=== PATIENT | male | born 1970 | race African-American/Black ===

== ENCOUNTER 2017-05-25 17:27 | Observation (INO) | payer BC, SELFPAY ==
[2017-05-25] VITALS (9 sets, daily range): BP systolic 140–208; BP diastolic 98–143; PULSE 91–131; RESP 16–25; TEMP 35.9–36.8; O2SAT 94–99; BMI 46.5; BMI 46.7; BMI 46.8
--- NOTE | 2017-05-25 18:35 | NURSING ---
MEDIC CALLED FOR EKG, PULLED OLD EKG'S FOR
--- NOTE | 2017-05-25 18:55 | EKG12_ITS ---
Test Reason : SOB Blood Pressure : / mmHG Vent. Rate : 118 BPM Atrial Rate : 118 BPM P-R Int : 130 ms QRS Dur : 090 ms QT Int : 352 ms P-R-T Axes : 043 -17 101 degrees QTc Int : 493 ms Sinus tachycardia Biatrial enlargement Left ventricular hypertrophy Nonspecific ST and T wave abnormality Abnormal ECG Confirmed by CODIE WILLETT, ADALBERTO ([id number]), field map editor RAND WHITTAKER ([id number]) on 06/06/2017 2:34:38 PM Referred By: Confirmed By:ADALBERTO MACKAY MD
[2017-05-25 19:15] LABS: Absolute Lymphocyte Count 1.63 X10^3/ul (0.83-4.51); Absolute Neutrophil Count 6.4 X10^3/uL (2.0-7.7); Basophil# 0.02 X10^3/uL; Basophil% 0.2 % (0-1); Eosinophils% 1.2 % (0-5); Hematocrit 42.8 % (40-54); Hemoglobin 13.8 g/dl (13.0-16.5); Lymphocyte # 1.63 X10^3/ul (4.0); Lymphocyte % 19.2 % (19-41); Mean Corp Hgb Conc 32.2 g/gl (32-36); Mean Corpuscular Hgb 26.5 pg (27.0-32.0); Mean Corpuscular Volume 82.1 fL (80-94); Mean Platelet Vol. 10.1 fl (6.2-12.0); Monocyte# 0.37 X10^3/uL; Monocyte% 4.4 % (0-10); Neutrophil # 6.35 X10^3/uL (2.7-7.7); Neutrophil % 74.8 % (47-70); POSITIVE COUNT NO; POSITIVE DIFFERENTIAL NO; POSITIVE MORPHOLOGY NO; Platelet Count 280 K/mm3 (150-450); RBC Distribution Width CV 15.4 % (11.6-14.6); RBC Distribution Width SD 46.2 fl (35.1-43.9); Red Blood Count 5.21 M/mm3 (4.6-6.2); White Blood Count 8.5 K/mm3 (4.4-11.0)
--- NOTE | 2017-05-25 19:25 | RAD_ITS ---
STUDY: X-RAY CHEST REASON FOR EXAM: Male, 46 years old. Shortness of breath dyspnea TECHNIQUE: PA and lateral views of the chest. COMPARISON: December 2014 chest x-ray FINDINGS: There is slightly greater focal band of interstitial thickening in the right lateral lobe. There is bandlike density in the left lingula. There is no demonstrated pleural abnormality. There is borderline cardiomegaly. Normal mediastinum and erick. Normal visualized pulmonary arteries. Normal visualized aortic arch and descending thoracic aorta. There are diffuse degenerative changes of the visualized thoracic spine. Normal visualized ribs, clavicles, and shoulders. There is no demonstrated abnormality of the visualized soft tissue structures of the upper abdomen. RAD/Chest PA and Lateral IMPRESSION: Right middle lobe left lingular atelectasis and/or developing infiltrates. Electronically Signed: Olivia Kaur MD at 19:57 EST Tel , Service support ,
[2017-05-25 19:27] LABS: ALB/GLOB Ratio 0.8 RATIO (0.9-2.4); AST(SGOT) 9 U/L (15-37); Alanine Aminotransfer ALT/SGPT 17 U/L (12-78); Albumin, Serum 3.3 g/dL (3.4-5.0); Alkaline Phosphatase 84 U/L (45-117); Anion Gap 9 (5-15); BUN 42 mg/dL (7-18); BUN/Creat Ratio 11.1 RATIO (10-20); Calcium,Total 8.9 mg/dL (8.5-10.1); Chloride 105 mmol/L (98-107); Creatinine, Serum 3.79 mg/dL (0.70-1.30); EST Glomerular Filtration Rate 18 mL/min (>60); Est Glom Filt Rate - Afr Amer 22 mL/min (>60); Estimated Creatinine Clearance 24.35 ml/min; Globulin 4.3 g/dL (2.2-4.2); Glucose 211 mg/dL (70-110); Lipase 77 U/L (73-393); Potassium 4.4 mmol/L (3.5-5.1); Protein, Total 7.6 g/dL (6.4-8.2); Sodium Level 139 mmol/L (136-145)
[2017-05-25] MEDS: Ondansetron 4 MG/2 ML Vial IV (19:36)
[2017-05-25] MEDS: 0.9% Normal Saline 1,000 ML 1000 ML IV (19:36)
[2017-05-25] MEDS: Labetalol 100 MG/20 ML Vial 10 MG IV (19:58)
[2017-05-25] MEDS: Aspirin 325 MG Tablet PO (20:46)
[2017-05-25] MEDS: Labetalol 20 MG/4 ML Vial IV (20:47)
--- NOTE | 2017-05-25 23:02 | PCM.HP.STD ---
Problem List (1) Hypertensive urgency Status: Acute (2) Elevated troponin Status: Acute (3) Chronic kidney disease stage III Status: Chronic (4) Diabetes type II Status: Chronic (5) Hypertension Status: Chronic History of Present Illness Date of Admission: 05/25/17 Chief Complaint: HTN urgency The patient is a 46 year old male w/ h/o HTN, CKD III, and DMII admitted for HTN urgency. 1) HTN urgency: SBP 200s. Baseline SBP 140s. Will resume home SBP meds. Will also add PRN labetalol. Will bring down SBP slowly. 2) Elevated trops: Will get serial trops. Currently asymptomatic. Pt has CKD III/ baseline. Likely type II. 3) CKD III/IV: Cr at baseline. Hydration. Routine CKD care. Past Medical History Past Medical History (Chronic Problems): Chronic Problems Chronic kidney disease stage III (Chronic) Diabetes type II (Chronic) Hypertension (Chronic) Allergies ibuprofen Adverse Reaction (Verified 05/25/17 17:31) Other Home Medications: Ambulatory Orders Medication Instructions Recorded Amlodipine [Norvasc] 10 mg PO DAILY 02/12/13 Omeprazole [Prilosec] 20 mg PO DAILY 02/12/13 Aspirin [Aspirin, Baby] 81 mg PO DAILY@0800 #30 tab.chew 01/10/15 HydrALAZINE [Apresoline] 75 mg PO TID #90 tablet 01/10/15 Chlorthalidone [Hygroton] 50 mg PO DAILY 01/20/16 Cholecalciferol (Vitamin D3) 50,000 unit PO QWEEK 01/20/16 [Vitamin D] Carvedilol [Coreg (Beta Florin)] 50 mg PO BID 05/25/17 Insulin Degludec [Tresiba 30 units SC DAILY 05/25/17 Flextouch U-200] Liraglutide [Victoza] 1.8 mg SQ QHS 05/25/17 Lisinopril [Zestril] 5 mg PO DAILY 05/25/17 Surgical History: no surgical history Smoking Status: Never smoker - *Family History Maternal History Items: No pertinent history VTE Information - Inpt Only VTE Present on Admission: No VTE Mechan Device Prophylaxis: SCD's VTE Pharm Prophylaxis ordered?: Yes Patient Problems: Active and Suspected Problems Hypertensive urgency (Acute) Elevated troponin (Acute) - Physical Exam Vital Signs Temp Pulse Resp BP Pulse Ox 98.2 F 91 19 H 140/98 H 99 05/25/17 21:27 05/25/17 21:27 05/25/17 21:27 05/25/17 21:27 05/25/17 21:27 Oxygen Flow Rate 2 Oxygen Delivery Method Nasal Cannula Weight: 142.882 kg Body Mass Index (BMI) 46.5 Finger Stick Blood Glucose 289 Laboratory Tests Past 24 Hrs 05/25/17 05/25/17 18:45 18:45 WBC 8.5 RBC 5.21 Hgb 13.8 Hct 42.8 MCV 82.1 MCH 26.5 L MCHC 32.2 RDW 15.4 H RDW Differential 46.2 H Plt Count 280 MPV 10.1 Immature Gran % (Auto) 0.200 Neut % (Auto) 74.8 H Lymph % (Auto) 19.2 [place] % (Auto) 4.4 Eos % (Auto) 1.2 Baso % (Auto) 0.2 Absolute Neuts (auto) 6.4 Absolute Lymphs (auto) 1.63 Total Counted Not Reportable Sodium 139 Potassium 4.4 Chloride 105 Carbon Dioxide 25.0 Anion Gap 9 BUN 42 H Creatinine 3.79 H Estim Creat Clear Calc 24.35 Est GFR (MDRD) Af Amer 22 L Est GFR (MDRD) Non-Af 18 L BUN/Creatinine Ratio 11.1 Glucose 211 H Calcium 8.9 Total Bilirubin 0.40 AST 9 L ALT 17 Alkaline Phosphatase 84 Troponin I 0.12 H Total Protein 7.6 Albumin 3.3 L Globulin 4.3 H Albumin/Globulin Ratio 0.8 L Lipase 77 Assessment/Plan Active and Suspected Problems Hypertensive urgency (Acute) Elevated troponin (Acute)
[2017-05-26] VITALS (8 sets, daily range): BP systolic 112–148; BP diastolic 84–101; PULSE 85–101; RESP 18; TEMP 36.3–36.5; O2SAT 94–98
[2017-05-26] MEDS: Carvedilol 25 MG Tablet 50 MG PO ×2 (00:23→08:02)
--- NOTE | 2017-05-26 00:34 | ED.VISSUMM ---
- ER Visit Summary Date of Service: 05/26/17 Chief Complaint: Shortness of breath History of Present Illness: The patient is a 46 M who has a history of chronic kidney disease, diabetes, and hypertension. He sees Dr. Mcqueen. Patient states that yesterday he began to feel shortness of breath. He noted a headache nausea is tonight at work developed sweating. [place] like he was going to pass out went to his boss and told he could not take this anymore. States he had a bit of a cough with some phlegm production but he states that is pretty normal for him. He reports a normal blood pressure for him is 168/104. He denies chest pain. Physical Examination: Blood pressure 205/131 heart rate of 117 respirations 16 pulse ox 97% on room air Gen: Well-nourished well-developed Geoff obese Head: Normocephalic atraumatic Eyes: Perrl EOMI ENT: TMs clear no rhinorrhea moist mucous membranes Neck: Supple no lymphadenopathy no JVD nontender CVS: Regular rate rhythm no murmurs normal S1-S2 Respiratory: No distress clear to auscultation bilaterally chest nontender Abdomen: Soft nontender nondistended normal bowel sounds no masses Back: Nontender Extremity: Nontender no edema Skin: Normal color no rash Neuro: alert orientated ?3 CN II-XII intact normal strength sensation reflexes gait cerebellar Psych: Normal affect normal mood Test Results: White count normal. Creatinine 3.79 which is his baseline. Glucose 211. Troponin 0 0.12. EKG sinus with a rate of 118. Chest x-ray showed no acute findings. Emergency Department Course and Treatment: Patient received labetalol with improvement of his pressures. Manual blood pressure at time of admission 142/98 he is no longer short of breath. Reviewing his records showed him to have normal troponins the end of last year despite his chronic kidney disease. I do suspect this patient probably had a hypertensive urgency based on his symptoms and laboratory findings plan is admission. Impression: 1. Hypertensive urgency 2. Indeterminate troponin This note was generated with [employer] dictation software. It may contain incorrect words, spelling, and punctuation that were not noted in review of the chart prior to signing ED Disposition - Plan for ED Patient: Disposition: Acute Care Hospital [facility] Chief Complaint: Shortness of Breath
--- NOTE | 2017-05-26 00:37 | ED.DCSUM_ITS ---
- ER Visit Summary Date of Service: 05/26/17 Chief Complaint: Shortness of breath History of Present Illness: The patient is a 46 M who has a history of chronic kidney disease, diabetes, and hypertension. He sees Dr. Mcqueen. Patient states that yesterday he began to feel shortness of breath. He noted a headache nausea is tonight at work developed sweating. [place] like he was going to pass out went to his boss and told he could not take this anymore. States he had a bit of a cough with some phlegm production but he states that is pretty normal for him. He reports a normal blood pressure for him is 168/104. He denies chest pain. Physical Examination: Blood pressure 205/131 heart rate of 117 respirations 16 pulse ox 97% on room air Gen: Well-nourished well-developed Geoff obese Head: Normocephalic atraumatic Eyes: Perrl EOMI ENT: TMs clear no rhinorrhea moist mucous membranes Neck: Supple no lymphadenopathy no JVD nontender CVS: Regular rate rhythm no murmurs normal S1-S2 Respiratory: No distress clear to auscultation bilaterally chest nontender Abdomen: Soft nontender nondistended normal bowel sounds no masses Back: Nontender Extremity: Nontender no edema Skin: Normal color no rash Neuro: alert orientated ?3 CN II-XII intact normal strength sensation reflexes gait cerebellar Psych: Normal affect normal mood Test Results: White count normal. Creatinine 3.79 which is his baseline. Glucose 211. Troponin 0 0.12. EKG sinus with a rate of 118. Chest x-ray showed no acute findings. Emergency Department Course and Treatment: Patient received labetalol with improvement of his pressures. Manual blood pressure at time of admission 142/ 98 he is no longer short of breath. Reviewing his records showed him to have normal troponins the end of last year despite his chronic kidney disease. I do suspect this patient probably had a hypertensive urgency based on his symptoms and laboratory findings plan is admission. Impression: 1. Hypertensive urgency 2. Indeterminate troponin This note was generated with [employer] dictation software. It may contain incorrect words, spelling, and punctuation that were not noted in review of the chart prior to signing ED Disposition - Plan for ED Patient: Disposition: Acute Care Hospital [facility] Chief Complaint: Shortness of Breath
[2017-05-26 06:41] LABS: Bedside Glucose 235 mg/dL (70-110)
[2017-05-26 07:06] LABS: Absolute Lymphocyte Count 1.69 X10^3/ul (0.83-4.51); Absolute Neutrophil Count 4.1 X10^3/uL (2.0-7.7); Basophil# 0.02 X10^3/uL; Basophil% 0.3 % (0-1); Eosinophil# 0.15 X10^3/uL; Eosinophils% 2.4 % (0-5); Hematocrit 39.7 % (40-54); Hemoglobin 12.4 g/dl (13.0-16.5); Lymphocyte # 1.69 X10^3/ul (4.0); Lymphocyte % 26.7 % (19-41); Mean Corp Hgb Conc 31.2 g/gl (32-36); Mean Corpuscular Hgb 25.9 pg (27.0-32.0); Mean Corpuscular Volume 83.1 fL (80-94); Mean Platelet Vol. 9.9 fl (6.2-12.0); Monocyte# 0.37 X10^3/uL; Monocyte% 5.8 % (0-10); Neutrophil # 4.11 X10^3/uL (2.7-7.7); Neutrophil % 64.8 % (47-70); Platelet Count 241 K/mm3 (150-450); RBC Distribution Width CV 15.7 % (11.6-14.6); RBC Distribution Width SD 47.4 fl (35.1-43.9); Red Blood Count 4.78 M/mm3 (4.6-6.2); White Blood Count 6.3 K/mm3 (4.4-11.0)
[2017-05-26 07:14] LABS: POSITIVE COUNT NO; POSITIVE DIFFERENTIAL NO; POSITIVE MORPHOLOGY NO
--- NOTE | 2017-05-26 07:33 | PCM.PROGNOTE ---
Patient Problems: Active and Suspected Problems Hypertensive urgency (Acute) Elevated troponin (Acute) Subjective: 46-year-old male with a past medical history of hypertension, diabetes mellitus type 2, chronic renal failure stage IV, HLD, VERÓNICA on CPAP and morbid obesity who presented to the emergency department at [facility] on 05/25/2017 complaining of shortness of breath, cephalgia and nausea. He felt as though he was going to faint. BP in the ER was 205/131 and he stated his normal BP was 168/104. Troponin was elevated at 0.12 and the creat was 3.79. Outpatient antihypertensives include amlodipine 10 mg daily, chlorthalidone 50 mg daily, hydralazine 75 mg 3 times daily, carvedilol 50 mg twice daily and lisinopril 5 mg daily. He was treated in the ER with Labetalol and it was effective in bringing down the BP. An echocardiogram done in December 2014 showed a moderately dilated left ventricle with an estimated ejection fraction of 40%. It was global left ventricular dysfunction. The left atrium was moderately enlarged and the right atrium was mildly enlarged. There was moderate TR and mild MR. Right ventricular systolic pressure was estimated at 54. Current vital signs are temperature 97.7, blood pressure 112/84, pulse rate 85, respiratory rate 18 and he is 98% saturated on a 2 L nasal cannula. He has received a total of 30 mg of labetalol intravenously, Coreg 50 mg and hydralazine 75 mg approximately 1 hour ago. The second troponin was elevated at 0.15. Admits to having orthopnea at home for the past 2 days. Has been sleeping in a chair. He admits to exertional dyspnea and wheezing for the past 48 hours. He denies missing any of his medications. He denies chest pain, chest tightness, squeezing or pain in his neck, jaw, arms or back. He tells me his breathing is very good today and he slept well. He is requesting to be discharged. - Physical Exam General: Alert, Oriented x3, Cooperative, No apparent distress Oral: Moist Mucosa Neck: Trachea Midline Lungs: Clear to auscultation, Diminished - Likely secondary to body habitus Cardiovascular: Regular rate, Regular Rhythm, Normal S1, Normal S2, No murmurs, No rub noted, No Gallop, - - Heart sounds are distant secondary to body habitus. Telemetry shows normal sinus rhythm with no ectopy. Abdomen: Soft, Non Tender, Non-Distended, Obese Extremities: No edema Vital Signs Temp Pulse Resp BP Pulse Ox 97.7 F L 85 18 112/84 H 98 05/26/17 06:23 05/26/17 06:33 05/26/17 06:23 05/26/17 06:23 05/26/17 06:23 Oxygen Flow Rate 2 Oxygen Delivery Method Nasal Cannula Weight: 316 lb 12.868 oz Body Mass Index (BMI) 46.7 Intake and Output for Last 24 Hours 05/24/17 05/25/17 05/26/17 23:59 23:59 23:59 Intake Total 720 / 720 Balance 720 / 720 Laboratory Tests Past 24 Hrs 05/26/17 05/26/17 05/26/17 00:15 06:17 06:17 WBC 6.3 RBC 4.78 Hgb 12.4 L Hct 39.7 L MCV 83.1 MCH 25.9 L MCHC 31.2 L RDW 15.7 H RDW Differential 47.4 H Plt Count 241 MPV 9.9 Immature Gran % (Auto) 0.000 Neut % (Auto) 64.8 Lymph % (Auto) 26.7 [place] % (Auto) 5.8 Eos % (Auto) 2.4 Baso % (Auto) 0.3 Absolute Neuts (auto) 4.1 Absolute Lymphs (auto) 1.69 Total Counted Not Reportable Sodium Pending Potassium Pending Chloride Pending Carbon Dioxide Pending Anion Gap Pending BUN Pending Creatinine Pending Est GFR (MDRD) Af Amer Pending Est GFR (MDRD) Non-Af Pending BUN/Creatinine Ratio Pending Glucose Pending Calcium Pending Troponin I 0.15 H POC Glucose 05/26/17 06:30 POC Glucose 235 H Assessment/Plan Active and Suspected Problems Hypertensive urgency (Acute) Elevated troponin (Acute) Impressions 1. acute combined systolic and diastolic CHF 2. Hypertensive Urgency 3. CRF stage 4 4. DM II 5. indeterminate troponin likely due to demand ischemia from hypertensive urgency with acute combined CHF 6. morbid obesity 7. anemia of CRF suspected 8. VERÓNICA 9. HLD 10. CM with a 40% EF in Dec 2014 Multiple RF's for CAD including HTN, DM II, HLD, age >45. No stress for many years. Needs to have an ECHO since ECHO a little over 2 years ago had 40% EF. Also needs a stress test. He wants to be discharged and the BP today is WNL and he is asymptomatic so I will DC. Needs to follow up with a PCP this week to arrange an OP ECHO and stress. He is likely not compliant with TID dosing of the Hydralazine. Will add Clonidine TTS 1 patch. HR ranges from 85-131. No bradycardia on the Telemetry. If the BP is controlled in the office this week would get the stress HAYLEE due to the indeterminate troponin. He will continue CPAP and has had a sleep study in the past year with no significant weight gain.
[2017-05-26 07:44] LABS: Anion Gap 9 (5-15); BUN 50 mg/dL (7-18); BUN/Creat Ratio 13.6 RATIO (10-20); Calcium,Total 8.3 mg/dL (8.5-10.1); Chloride 106 mmol/L (98-107); Creatinine, Serum 3.69 mg/dL (0.70-1.30); EST Glomerular Filtration Rate 19 mL/min (>60); Est Glom Filt Rate - Afr Amer 23 mL/min (>60); Estimated Creatinine Clearance 25.01 ml/min; Glucose 223 mg/dL (70-110); Potassium 4.6 mmol/L (3.5-5.1); Sodium Level 138 mmol/L (136-145)
[2017-05-26] MEDS: Aspirin 81 MG TAB.CHEW PO (08:01)
[2017-05-26] MEDS: Lisinopril 5 MG Tablet PO (08:01)
[2017-05-26] MEDS: Pantoprazole Sodium 20 MG Tablet PO (08:01)
[2017-05-26] MEDS: Chlorthalidone 50 MG Tablet PO (08:01)
[2017-05-26] MEDS: amLODIPine 10 MG Tablet PO (08:02)
--- NOTE | 2017-05-26 09:44 | DCINST_ITS ---
- Discharge Diagnoses Current Active Problems: Current Active and Chronic Problems Hypertensive urgency (Acute) Elevated troponin (Acute) You will use the following diet at home:: Calorie/Carbohydrate Controlled ( specify 1200, 1400, etc), Other - 2200, low fat and low salt Your food should be the consistency of: Regular Your liquids should be the consistency of: Regular/Thin Discharge Activity: Return to Normal Activity Return to work on:: 05/28/17 Call your doctor if you observe: Fever of 101 or Higher, Inability to urinate, Shortness of breath, Dizziness, Fainting spells, Swelling in the ankles, Chest pain, Increased palpitations (irregular heartbeat) Instructions: MyPlate Worksheet: 2,200 Calories, Discharge Instructions for Heart Failure Additional Instructions: When your BP got really really high the heart muscle could not squeeze hard enough to get the blood out of the heart and delivered to the rest of the body.....so the blood backed up and caused fluid in the lungs. This fluid is what mades it hard for you to lie down flat and sleep and also caused the shortness of breath and wheezing when you were walking. YOU MUST KEEP YOUR bp CONTROLLED. The hardest medications to be compliant with are meds that you are to take 3 times a day. Take your BP medication before you go to work, with you lunch break at work and soon after you return home from work. Put the hydralazine in a small container or a sandwich bag and include it with your lunch....so you do not forget to take it. You can also set the alarm on your phone or on your watch to remind you to take the medication when the alarm goes off. You need to have a stress test and a repeat ultrasound of the heart, called an ECHO or echocardiogram......your last ECHO was in Dec and the heart was not working as well as it should. Normally when the heart squeezes it should squeeze 55-65% of the blood out. Your heart does 40%.......since your BP is not controlled this may have gotten worse......you are a young man with children/family. If you do not start taking better care of yourself you may not be around to watch your children graduate form school, get , have children. Please take your medications and follow up with Dr. Lamar and your PCP regularly. I have started you on a new BP medication that comes in a patch that you only need to change once a week and it releases medication continuously. Pending Tests on Discharge: blood culture Allergies/Adverse Reactions: Allergies ibuprofen Adverse Reaction (Verified 05/25/17 17:31) Other Medications to take at Discharge Amlodipine [Norvasc] 10 mg PO DAILY 02/12/13 Omeprazole [Prilosec] 20 mg PO DAILY 02/12/13 Aspirin [Aspirin, Baby] 81 mg PO DAILY@0800 #30 tab.chew 01/10/15 HydrALAZINE [Apresoline] 75 mg PO TID #90 tablet 01/10/15 Chlorthalidone [Hygroton] 50 mg PO DAILY 01/20/16 Cholecalciferol (Vitamin D3) [Vitamin D3] 50,000 unit PO QWEEK 01/20/16 Carvedilol [Coreg (Beta Florin)] 50 mg PO BID 05/25/17 Insulin Degludec [Tresiba Flextouch U-200] 30 units SC DAILY 05/25/17 Liraglutide [Victoza] 1.8 mg SQ QHS 05/25/17 Lisinopril [Zestril] 5 mg PO DAILY 05/25/17 Clonidine [Catapres-Tts 1] 1 ea TD Q7D #5 patch.tdwk 05/26/17 The following prescriptions were given: Clonidine [Catapres-Tts 1] 1 ea TD Q7D #5 patch.tdwk Primary Care Physician: Norris Mcqueen MD [Primary Care Provider] - Please follow up with your Primary Care Physician in: within 1 week Please Follow Up With: Jade Lamar MD When: within 4 weeks Please Follow Up With: Marylou Vidales MD - if you are interested in changing physicians When: within 1 week Proposed Discharge Date: 05/26/17
--- NOTE | 2017-05-26 09:50 | DS.PCM_ITS ---
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 Electronically Signed: Olivia Kaur MD at 19:57 EST Tel , Service support , Laboratory Tests 05/25/17 05/25/17 05/26/17 18:45 18:45 00:15 WBC 8.5 RBC 5.21 Hgb 13.8 Hct 42.8 MCV 82.1 MCH 26.5 L MCHC 32.2 RDW 15.4 H RDW Differential 46.2 H Plt Count 280 MPV 10.1 Immature Gran % (Auto) 0.200 Neut % (Auto) 74.8 H Lymph % (Auto) 19.2 Caswell % (Auto) 4.4 Eos % (Auto) 1.2 Baso % (Auto) 0.2 Absolute Neuts (auto) 6.4 Absolute Lymphs (auto) 1.63 Total Counted Not Reportable Sodium 139 Potassium 4.4 Chloride 105 Carbon Dioxide 25.0 Anion Gap 9 BUN 42 H Creatinine 3.79 H Estim Creat Clear Calc 24.35 Est GFR (MDRD) Af Amer 22 L Est GFR (MDRD) Non-Af 18 L BUN/Creatinine Ratio 11.1 Glucose 211 H Calcium 8.9 Total Bilirubin 0.40 AST 9 L ALT 17 Alkaline Phosphatase 84 Troponin I 0.12 H 0.15 H Total Protein 7.6 Albumin 3.3 L Globulin 4.3 H Albumin/Globulin Ratio 0.8 L Lipase 77 POC Glucose 01/05/26/17 05/26/17 06:17 06:17 06:30 WBC 6.3 RBC 4.78 Hgb 12.4 L Hct 39.7 L MCV 83.1 MCH 25.9 L MCHC 31.2 L RDW 15.7 H RDW Differential 47.4 H Plt Count 241 MPV 9.9 Immature Gran % (Auto) 0.000 Neut % (Auto) 64.8 Lymph % (Auto) 26.7 Caswell % (Auto) 5.8 Eos % (Auto) 2.4 Baso % (Auto) 0.3 Absolute Neuts (auto) 4.1 Absolute Lymphs (auto) 1.69 Total Counted Not Reportable Sodium 138 Potassium 4.6 Chloride 106 Carbon Dioxide 23.0 Anion Gap 9 BUN 50 H Creatinine 3.69 H Estim Creat Clear Calc 25.01 Est GFR (MDRD) Af Amer 23 L Est GFR (MDRD) Non-Af 19 L BUN/Creatinine Ratio 13.6 Glucose 223 H Calcium 8.3 L Total Bilirubin AST ALT Alkaline Phosphatase Troponin I Total Protein Albumin Globulin Albumin/Globulin Ratio Lipase POC Glucose 235 H none Operations: None Procedures: None Summary of Care Provided: 46-year-old male with a past medical history of hypertension, diabetes mellitus type 2, chronic renal failure stage IV, HLD, VERÓNICA on CPAP and morbid obesity who presented to the emergency department at [facility] on 05/25/2017 complaining of shortness of breath, cephalgia and nausea. He felt as though he was going to faint. BP in the ER was 205/131 and he stated his normal BP was 168/104. Troponin was elevated at 0.12 and the creat was 3.79. Outpatient antihypertensives include amlodipine 10 mg daily, chlorthalidone 50 mg daily, hydralazine 75 mg 3 times daily, carvedilol 50 mg twice daily and lisinopril 5 mg daily. He was treated in the ER with Labetalol and it was effective in bringing down the BP. Chest x-ray in the emergency room revealed no pulmonary vascular congestion or pleural effusions. He does have cardiomegaly. He was admitted to a monitored bed with a diagnosis of HTN urgency and elevated troponin. The second troponin was 0.15. Blood pressure on 05/26/2017 ranged from 112/ 84-130 3/91. He denied shortness of breath and also denied any chest pain. He stated he felt much better and had no cephalgia and no nausea. An echocardiogram done in December 2014 showed a moderately dilated left ventricle with an estimated ejection fraction of 40%. It was global left ventricular dysfunction. The left atrium was moderately enlarged and the right atrium was mildly enlarged. There was moderate TR and mild MR. Right ventricular systolic pressure was estimated at 54. He requested to be discharged. I recommended he stay and allow us to finish the serial CE's and get an ECHO and stress test but, he stated he had to get home to his family. He did tell me that he would follow up as an OP with his PCP to arrange a ECHO and stress. I suspect he is not compliant with TID dosing of Hydralazine and and he was told to put the second dose with his lunch and take it on his lunch break at work. He was also instructed to consider getting a watch with an alarm he can set for when he is supposed to take his medication. He was started on a Catapres patch, TTS 1. The HR ranged from 83-131 and I doubt he will have any significant bradycardia with the Catapres. There was no bradycardia on telemetry. He was discharged home with a prescription for a TTS 1 patch. He will follow up with PCP in 1 week and if the BP is adequately controlled he should be referred for a Stress test and ECHO. He will follow up with Dr. Lamar in 4 weeks. This note was generated with [employer] dictation software. It may contain incorrect words, spelling, and punctuation that were not noted in checking the note before signing. Discharge Activity: Return to Normal Activity Return to work on:: 05/28/17 Call your doctor if you observe: Fever of 101 or Higher, Inability to urinate, Shortness of breath, Dizziness, Fainting spells, Swelling in the ankles, Chest pain, Increased palpitations (irregular heartbeat) Home Medications: Medications to take at Discharge Amlodipine [Norvasc] 10 mg PO DAILY 02/12/13 Omeprazole [Prilosec] 20 mg PO DAILY 02/12/13 Aspirin [Aspirin, Baby] 81 mg PO DAILY@0800 #30 tab.chew 01/10/15 HydrALAZINE [Apresoline] 75 mg PO TID #90 tablet 01/10/15 Chlorthalidone [Hygroton] 50 mg PO DAILY 01/20/16 Cholecalciferol (Vitamin D3) [Vitamin D3] 50,000 unit PO QWEEK 01/20/16 Carvedilol [Coreg (Beta Florin)] 50 mg PO BID 05/25/17 Insulin Degludec [Tresiba Flextouch U-200] 30 units SC DAILY 05/25/17 Liraglutide [Victoza] 1.8 mg SQ QHS 05/25/17 Lisinopril [Zestril] 5 mg PO DAILY 05/25/17 Clonidine [Catapres-Tts 1] 1 ea TD Q7D #5 patch.tdwk 05/26/17 Following Prescrptions Were Given to Patient: Clonidine [Catapres-Tts 1] 1 ea TD Q7D #5 patch.tdwk Primary Care Physician: Norris Mcqueen MD [Primary Care Provider] - Please follow up with your Primary Care Physician in: within 1 week Please Follow Up With: Jade Lamar MD When: within 4 weeks Please Follow Up With: Marylou Vidales MD - if you are interested in changing physicians When: within 1 week Patient Instructions: Discharge Instructions for Heart Failure, MyPlate Worksheet: 2,200 Calories Disposition: Home Minutes spent on discharge:: 35 Patient Condition:: Stable Meaningful Use Info Meaningful Use Diagnoses (Choose all that apply): None applicable - CHF BLANCA/ARB ordered at discharge?: Yes Documented LVEF (%): 40 - on ECHO Dec 2014 Code Visit Inpatient E&M: 12140 Disch Hosp
[2017-05-26] MEDS: cloNIDine HCl 0.1 MG Patch TRANSDERM. (10:23)
== END 2017-05-26 10:52 | disposition home or self-care (01) ==
LOC: ED 19:12 → MS2 23:31
PROVIDERS: Admitting Provider Internal Medicine; Emergency Provider Emergency Medicine; Family Provider Family Medicine; PCP Family Medicine; Visit Provider Internal Medicine
DX: I16.0 Hypertensive urgency (principal); E11.22 Type 2 diabetes mellitus with diabetic chronic kidney disease; I13.0 Hypertensive heart and chronic kidney disease with heart failure and stage 1 through stage 4 chronic kidney disease, or unspecified chronic kidney disease; N18.4 Chronic kidney disease, stage 4 (severe); I50.43 Acute on chronic combined systolic (congestive) and diastolic (congestive) heart failure; E66.01 Morbid (severe) obesity due to excess calories; Z68.42 Body mass index [BMI] 45.0-49.9, adult; Z71.3 Dietary counseling and surveillance; G47.33 Obstructive sleep apnea (adult) (pediatric); E78.5 Hyperlipidemia, unspecified
CPT/HCPCS: 36415; 71046; 80048; 80053; 82962; 83690; 84484; 85025; 87040; 93005; 96372; 96374; 96375; 96376; 99218; 99285; A4216; G0378; J2405

== ENCOUNTER → 2017-07-31 06:19 | Outpatient (CLI) | payer BC, SELFPAY ==
--- NOTE | 2017-07-31 18:46 | STRESSREP ---
Stress Test Report Pharmacologic myocardial perfusion stress test. 47-year-old man with a history of shortness of breath. Stress protocol: Resting EKG demonstrates normal sinus rhythm with a rate of 87 bpm occasional premature ventricular complexes noted nonspecific ST-T wave changes noted. 0.4 mg of regadenoson was infused per usual protocol followed by rapid intravenous saline flush injection. Continuous EKG monitoring was performed. Patient maintained sinus rhythm throughout the recording. The maximum heart rate attained was 111 bpm which was 64% maximum predicted heart rate the resting blood pressure is 189/118 maximum blood pressure was 214/105 mmHg. Myocardial perfusion protocol. 14.9 mCi of technetium 99m sestamibi was injected. 0.4 mg of regadenoson was infused per usual protocol. At peak infusion 44.8 mCi of technetium 99m sestamibi was injected stress images were obtained stress and rest images were reconstructed and compared in the short axis vertical long and horizontal long axis. Gated images were also obtained. Perfusion SPECT analysis. Review of the images demonstrate a dilated cardiac silhouette size. The septum anterior wall and lateral wall appear to well perfused the inferior wall demonstrates reduction of perfusion on the stress and resting images to a similar extent the above is likely suggestive of extensive GI attenuation artifact or previous inferior infarct. No obvious areas of reversibility are noted to suggest ischemia. Gated SPECT analysis. The gated ejection fraction is noted be 45% with a dilated hypokinetic ventricle. Conclusion: Pharmacologic myocardial perfusion stress test with no obvious ischemia noted. Previous inferior infarct cannot be completely excluded. Dilated cardiomyopathy. Dilated right ventricle is present
== END ==
PROVIDERS: Family Provider Family Medicine; PCP Family Medicine; Visit Provider Family Medicine
DX: R06.02 Shortness of breath (principal)
CPT/HCPCS: A4216; J2785

== ENCOUNTER → 2017-07-31 06:21 | Outpatient (CLI) | payer BC, SELFPAY ==
--- NOTE | 2017-07-31 06:28 | VDUE_ITS ---
Reason For Study: Assess for possible dialysis access placement - CKD Right Arm Left Arm Right Cephalic Vein at the wrist Left Cephalic Vein at the wrist measures .29 measures .24 x .24 cm. x .28 cm. Right Cephalic Vein in the forearm Left Cephalic Vein in the forearm measures .24 x .24 cm. measures .31 x .35 cm. Right Cephalic Vein below antecub Left Cephalic Vein below antecub measures .23 x .26 cm. measures .32 x .37 cm. Right Cephalic Vein above antecub Left Cephalic Vein above antecub measures .35 x .37 cm. measures .38 x .39 cm. Right Cephalic Vein mid bicep measures .29 Left Cephalic Vein at mid bicep measures .44 x .30 cm. x .46 cm. Right Cephalic Vein at the shoulder Left Cephalic Vein at the shoulder measures .33 x .30 cm. measures .40 x .42 cm. Right Basilic Vein at the origin Basilic vein at origin measures .42 x .41 measures .44 x .50 cm. cm. Right Basilic Vein mid bicep measures .40 Basilic vein at bicep measures .46 x .48 cm. x .38 cm. Basilic vein above antecub measures .50 Right Basilic Vein above antecub x .50 cm. measures .35 x .35 cm. LT Brachial artery - .32 x .29 cm with a RT Brachial artery- .34 x .32 cm with a velocity of 54.6 cm/s velocity of 62.1 cm/s LT Radial artery - .23 x .25 cm with a RT Radial artery - .21 x .23 cm with a velocity of 60.9 cm/s. velocity of 60.5 cm/s. < Interpretation Summary Patent and compressible bilateral upper extremity cephalic and basilic veins. Normal flow bilateral brachial and radial arteries. Ordering Physician: Willard, Jayaprakash Referring Physician: Norris Mcqueen Performed By: Yasmine Grajeda RVT
== END ==
PROVIDERS: Family Provider Family Medicine; PCP Family Medicine; Visit Provider Internal Medicine Nephrology
DX: I25.10 Atherosclerotic heart disease of native coronary artery without angina pectoris (principal); I16.0 Hypertensive urgency; R06.02 Shortness of breath; N18.4 Chronic kidney disease, stage 4 (severe)
CPT/HCPCS: 78452; 93017; 93970; A9500

== ENCOUNTER 2017-08-17 06:08 | Day surgery (SDC) | payer BC, SELFPAY ==
[2017-08-17] VITALS (9 sets, daily range): BP systolic 113–144; BP diastolic 69–83; PULSE 69–78; RESP 16; TEMP 36.1–36.6; O2SAT 92–100; BMI 45.3
--- NOTE | 2017-08-17 06:28 | EKG12_ITS ---
Test Reason : PREOP Blood Pressure : / mmHG Vent. Rate : 076 BPM Atrial Rate : 076 BPM P-R Int : 138 ms QRS Dur : 102 ms QT Int : 404 ms P-R-T Axes : 019 002 008 degrees QTc Int : 454 ms Normal sinus rhythm Nonspecific T wave abnormality Abnormal ECG Confirmed by CODIE WILLETT, ADALBERTO ([id number]), assistant editor RAND WHITTAKER ([id number]) on 08/21/2017 3:52:08 PM Referred By: Aguilar Gutierrez Confirmed By:ADALBERTO MACKAY MD
[2017-08-17 07:11] LABS: Hematocrit 37.7 % (40-54); Mean Corp Hgb Conc 31.8 g/gl (32-36); Mean Corpuscular Hgb 26.1 pg (27.0-32.0); Mean Corpuscular Volume 82.1 fL (80-94); Mean Platelet Vol. 9.5 fl (6.2-12.0); Platelet Count 284 K/mm3 (150-450); RBC Distribution Width CV 15.6 % (11.6-14.6); RBC Distribution Width SD 46.8 fl (35.1-43.9); Red Blood Count 4.59 M/mm3 (4.6-6.2); White Blood Count 7.3 K/mm3 (4.4-11.0)
[2017-08-17 07:12] LABS: Scan Indicated on CBC? Y/N NO
[2017-08-17 07:21] LABS: Anion Gap 9 (5-15); BUN 53 mg/dL (7-18); BUN/Creat Ratio 12.1 RATIO (10-20); Calcium,Total 8.5 mg/dL (8.5-10.1); Chloride 106 mmol/L (98-107); Creatinine, Serum 4.38 mg/dL (0.70-1.30); EST Glomerular Filtration Rate 16 mL/min (>60); Est Glom Filt Rate - Afr Amer 19 mL/min (>60); Estimated Creatinine Clearance 20.85 ml/min; Glucose 167 mg/dL (74-106); Potassium 3.7 mmol/L (3.5-5.1); Sodium Level 141 mmol/L (136-145)
[2017-08-17 07:25] LABS: Bedside Glucose 170 mg/dL (70-110)
[2017-08-17] MEDS: Bupivacaine Mpf 0.5% 30 ML VIAL (09:14)
--- NOTE | 2017-08-17 10:40 | PCM.DC.FIST ---
Discharge Diet: Renal Diet Discharge Activity: May Not Drive - for 2-3 days or while taking narcotic pain medications., May Shower, May Take a Tub Bath - in 5 days. Lifting Restrictions: 5 pounds Keep extremity elevated above heart level: - - Keep arm elevated above the heart level for 3 days. Additional Activity Instructions:: Exercise hand vigorously with a stress ball. Call your doctor if your incision/area has: Continuous Slow Oozing, Sudden Increased Bleeding - apply pressure and call your doctor., Increased Pain/ Swelling, Increased Redness, Foul Smelling Discharge Call your doctor if you observe: Fever of 101 or Higher Suture Line Care: Avoid Pulling/Pushing, Avoid Pinching/Bending Cleanse incision/area with: Keep Dressing Clean & Dry Additional Dressing/Incision Instructions:: You may leave the plastic dressing on for 3-4 days. You may shower over it. After 3-4 days remove the plastic dressing. Please leave the Steri-Strips for an additional week Allergies/Adverse Reactions: Allergies ibuprofen Adverse Reaction (Verified 08/10/17 14:47) Other Medications to take at Discharge Amlodipine [Norvasc] 10 mg PO DAILY 02/12/13 Omeprazole [Prilosec] 20 mg PO DAILY 02/12/13 Insulin Degludec [Tresiba Flextouch U-200] 30 units SC DAILY 05/25/17 Liraglutide [Victoza] 1.8 mg SQ QHS 05/25/17 carvedilol 25 mg tablet 25 mg PO BID tab 08/02/17 glimepiride 4 mg tablet 4 mg PO DAILY tab 08/02/17 simvastatin 80 mg tablet 80 mg PO QHS 08/02/17 Aspirin [Aspirin, Baby] 81 mg PO DAILY 08/10/17 Clonidine [Catapres-Tts 1] 1 each TD Q7D 08/10/17 Hydrocodone Bitart/Apap 5-325 [[place] 5MG-325MG] 1 tablet PO Q6H PRN PRN 3 Days #5 tablet 08/17/17 The following prescriptions were given: Hydrocodone Bitart/Apap 5-325 [[place] 5MG-325MG] 1 tablet PO Q6H PRN PRN 3 Days #5 tablet PRN Reason: Pain Primary Care Physician: Norris Mcqueen MD [Primary Care Provider] - Please Follow Up With: Aguilar Gutierrez MD - [phone] When: Call to make an appointment for suture removal and follow up in 1 week.
--- NOTE | 2017-08-17 10:41 | PCM.OPRPT ---
Problem List (1) Anemia of chronic renal failure, stage 4 (severe) Status: Suspected Report of Operation Date of Procedure: 08/17/17 Pre-Operative Diagnosis: Stage IV chronic renal insufficiency Post-Operative Diagnosis: Same Surgery/Procedure Performed:: Left forearm radiocephalic arteriovenous fistula creation Description of Surgical Findings:: Timeout and informed consent was obtained. It was taken to the operating room. He was placed on the table. He underwent monitored anesthesia care. Clean procedure no antibiotics required. The left extremity was sterilely prepped and draped. 1% lidocaine mixed 50-50 with 0.5% Marcaine was used as local anesthetic. A total of cc was used. A slightly oblique transverse incision was made in the left distal radial forearm at the wrist consistent with ultrasound mapping that are performed at the initiation of the operation. The cephalic vein was sharply and bluntly dissected free. The radial artery was then dissected free. Patient received 10,000 units of heparin. The vein was ligated distally with hemoclips and 3-0 Vicryl suture. The vein was spatulated. 11 blade was used to make an arteriotomy in the anterior aspect of the artery which is been nicely mobilized. This was extended with Nguyen scissors. A end-to-side anastomosis created with a running 7-0 Prolene. Prior to completion there is good antegrade flow. The anastomosis was completed. There appear to be good positional lie of the fistula. The wound was closed with running subcuticular 4-0 Monocryl. Steri-Strips Telfa OpSite dressings applied. Sponge and instrument and needle counts were reported the surgeon be correct. He seemed to tolerate the procedure well. There appeared to be a good pulse thrill and bruit within the fissure at the completion there were no apparent complications. Specimens none. Drains none. Blood loss minimal. Aguilar Gutierrez M.D., F.A.C.S. Type of Anesthesia:: Local MAC Anesthesiologist: Keily Alvarez
[2017-08-17 10:46] LABS: Bedside Glucose 175 mg/dL (70-110)
== END 2017-08-17 12:34 | disposition home or self-care (01) ==
LOC: SDC 06:09 → AC 06:10
PROVIDERS: Family Provider Family Medicine; PCP Family Medicine; Visit Provider Surgery
PROC: (CPT 36821; principal; 2017-08-17 08:45)
DX: E11.22 Type 2 diabetes mellitus with diabetic chronic kidney disease (principal); N18.4 Chronic kidney disease, stage 4 (severe); D63.1 Anemia in chronic kidney disease; I13.0 Hypertensive heart and chronic kidney disease with heart failure and stage 1 through stage 4 chronic kidney disease, or unspecified chronic kidney disease; I50.42 Chronic combined systolic (congestive) and diastolic (congestive) heart failure; E78.00 Pure hypercholesterolemia, unspecified; I27.20 Pulmonary hypertension, unspecified; G47.33 Obstructive sleep apnea (adult) (pediatric); E66.01 Morbid (severe) obesity due to excess calories; Z79.4 Long term (current) use of insulin; Z79.84 Long term (current) use of oral hypoglycemic drugs; Z79.899 Other long term (current) drug therapy; Z79.82 Long term (current) use of aspirin; Z68.42 Body mass index [BMI] 45.0-49.9, adult
CPT/HCPCS: 36821; 36415; 80048; 82962; 85027; 93005; J2405

== ENCOUNTER 2018-05-03 17:56 | Emergency (ER) | payer BC, SELFPAY ==
[2018-05-03 17:58] VITALS: BP 162/85; PULSE 83; RESP 14; TEMP 36.3; O2SAT 96; BMI 46.5
--- NOTE | 2018-05-03 19:53 | EKG12_ITS ---
Test Reason : Blood Pressure : / mmHG Vent. Rate : 077 BPM Atrial Rate : 077 BPM P-R Int : 116 ms QRS Dur : 108 ms QT Int : 446 ms P-R-T Axes : 022 002 065 degrees QTc Int : 504 ms Normal sinus rhythm Minimal voltage criteria for LVH, may be normal variant Prolonged QT Abnormal ECG Confirmed by GA WILLETT, RADHA ([id number]), visual effects editor RAND WHITTAKER ([id number]) on 05/07/2018 8:54:57 AM Referred By: JACK Confirmed By:RADHA KOROMA MD
--- NOTE | 2018-05-03 19:56 | RAD_ITS ---
STUDY: X-RAY CHEST REASON FOR EXAM: Male, 47 years old. Shortness of breath. Cough for several weeks. History of CHF hypertension and stage IV kidney disease. TECHNIQUE: Single AP portable view of the chest. COMPARISON: May 25, 2017. FINDINGS: The lungs are well-expanded. There is no acute infiltrate or mass. There is no demonstrated pleural abnormality. Normal size heart. Normal mediastinum and erick. Normal visualized pulmonary arteries. Normal visualized aortic arch and descending thoracic aorta. The thoracic spine is obscured by the mediastinum. Normal visualized ribs, clavicles, and shoulders. There is no demonstrated abnormality of the visualized soft tissue structures of the upper abdomen. RAD/Chest 1 View (Portable) IMPRESSION: No acute cardiopulmonary disease. Electronically Signed: Earl Quintero DO at 20:21 EST Tel [phone], Service support ,
[2018-05-03 20:44] LABS: Absolute Neutrophil Count 6.7 X10^3/uL (2.0-7.7); Basophil# 0.02 X10^3/uL; Basophil% 0.2 % (0-1); Eosinophil# 0.23 X10^3/uL; Eosinophils% 2.6 % (0-5); Hematocrit 39.7 % (40-54); Hemoglobin 12.8 g/dl (13.0-16.5); Lymphocyte % 15.8 % (19-41); Mean Corp Hgb Conc 32.2 g/gl (32-36); Mean Corpuscular Hgb 26.5 pg (27.0-32.0); Mean Corpuscular Volume 82.2 fL (80-94); Mean Platelet Vol. 9.3 fl (6.2-12.0); Monocyte# 0.47 X10^3/uL; Monocyte% 5.3 % (0-10); Neutrophil # 6.72 X10^3/uL (2.7-7.7); POSITIVE COUNT NO; POSITIVE DIFFERENTIAL NO; POSITIVE MORPHOLOGY NO; Platelet Count 296 K/mm3 (150-450); RBC Distribution Width CV 14.8 % (11.6-14.6); RBC Distribution Width SD 44.8 fl (35.1-43.9); Red Blood Count 4.83 M/mm3 (4.6-6.2); White Blood Count 8.9 K/mm3 (4.4-11.0)
[2018-05-03 20:52] LABS: Anion Gap 12 (5-15); BUN 58 mg/dL (7-18); BUN/Creat Ratio 14.5 RATIO (10-20); Calcium,Total 9.5 mg/dL (8.5-10.1); Chloride 100 mmol/L (98-107); Creatinine, Serum 3.99 mg/dL (0.70-1.30); EST Glomerular Filtration Rate 17 mL/min (>60); Est Glom Filt Rate - Afr Amer 21 mL/min (>60); Estimated Creatinine Clearance 22.89 ml/min; Glucose 231 mg/dL (74-106); Sodium Level 136 mmol/L (136-145)
--- NOTE | 2018-05-03 21:22 | ED.VISSUMM ---
- ER Visit Summary Date of Service: 05/03/18 Chief Complaint: Chest pain History of Present Illness: The patient is a 47 M who had stomach flu symptoms a couple weeks ago. Patient still has chest pain. He states is worse when he lies down, with movement, or with eating. He has a history of diabetes, hypertension, high cholesterol, congestive heart failure. He has chronic renal failure and currently has a left forearm fistula but is not yet on dialysis. Physical Examination: Vital signs significant for blood pressure of 162/85, otherwise unremarkable. Patient sitting on the side of the bed no acute distress. Head and neck examination is normal. Heart is regular rate and rhythm. Lung sounds are clear. He does have reproducible tenderness along the left sternal border. Abdomen is soft and nontender. Extremity examination reveals left upper extremity fistula with thrill. Test Results: EKG is sinus at 77. Lateral T wave flattening is noted. No acute ST change noted. Portable chest x-ray shows no acute process. CBC was a hemoglobin of 12.8. Chemistry studies reveal glucose of 231, BUN of 58, creatinine of 3.99. This is slightly improved when compared to his most recent labs. Troponin returns at 0.024. This is improved when compared to prior labs as well. Emergency Department Course and Treatment: Patient has had symptoms ongoing for quite some time with unremarkable EKG and troponin. I believe he has chest wall pain, possibly from retching during his GI illness. He will use Tylenol as he is unable to take ibuprofen. Treatment Plan: [] Disposition: Discharge Impression: Chest wall pain This note was generated with [employer] dictation software. It may contain incorrect words, spelling, and punctuation that were not noted in review of the chart prior to signing ED Disposition - Plan for ED Patient: Chief Complaint: Cold Sx Referrals: Norris Mcqueen MD [Primary Care Provider] -
--- NOTE | 2018-05-03 21:24 | ED.DEP ---
ED Disposition - Plan for ED Patient: Disposition: Home or Assisted Living Chief Complaint: Cold Sx Instructions: ED Strain Chest Wall Referrals: Norris Mcqueen MD [Primary Care Provider] - 1 Week if not improving
[2018-05-03 21:28] VITALS: BP 176/113; PULSE 73; RESP 17
[2018-05-03 21:33] VITALS: BP 183/113; PULSE 80; RESP 16
--- NOTE | 2018-05-03 21:45 | ED.RN ---
PT HAS NOT TAKEN HIS EVENING BP MEDICATION, DR. SANTIAGO INFORMED, NO NEW ORDERS AT THIS TIME.
== END 2018-05-03 21:46 | disposition home or self-care (01) ==
PROVIDERS: Emergency Provider Emergency Medicine; Family Provider Family Medicine; PCP Family Medicine
DX: R07.89 Other chest pain (principal); E66.9 Obesity, unspecified; I13.0 Hypertensive heart and chronic kidney disease with heart failure and stage 1 through stage 4 chronic kidney disease, or unspecified chronic kidney disease; E11.22 Type 2 diabetes mellitus with diabetic chronic kidney disease; N18.9 Chronic kidney disease, unspecified; I50.9 Heart failure, unspecified; E78.00 Pure hypercholesterolemia, unspecified; I42.9 Cardiomyopathy, unspecified; Z95.828 Presence of other vascular implants and grafts; Z79.84 Long term (current) use of oral hypoglycemic drugs; Z79.4 Long term (current) use of insulin; Z79.82 Long term (current) use of aspirin; Z79.899 Other long term (current) drug therapy
CPT/HCPCS: 71045; 80048; 84484; 85025; 93005; 99284; A4216

== ENCOUNTER 2018-08-08 17:50 | Observation (INO) | payer BC, SELFPAY ==
[2018-08-08] VITALS (8 sets, daily range): BP systolic 131–156; BP diastolic 77–95; PULSE 67–90; RESP 18; TEMP 36.5–36.9; O2SAT 94–98; BMI 46.5; BMI 44.1
--- NOTE | 2018-08-08 17:59 | CT_ITS ---
STUDY: CT BRAIN WITHOUT CONTRAST REASON FOR EXAM: Male, 48 years old. Headache RADIATION DOSAGE (If Supplied By Facility): CTDIvol = ( 44.99 ) mGy, DLP = ( 846.23 ) mGycm TECHNIQUE: Transaxial CT imaging of the brain was performed without administration of intravenous contrast material. Individualized dose optimization techniques were used for this CT. COMPARISON: 01/20/2014 FINDINGS: Normal soft tissue structures. Normal calvarium. Stable left frontal osteoma Normal size ventricles and extra-axial spaces for the patient's age. Normal white matter tracts of the cerebral hemispheres. Normal basal ganglia and thalami. Normal brainstem. Normal cerebellum. There is no intracranial hemorrhage. There are no findings of an acute ischemic infarction. Normal visualized paranasal sinuses. CT/Brain/Head without Contrast IMPRESSION: No acute intracranial abnormalities Electronically Signed: Beto Carver MD at 18:58 EDT , Service support ,
--- NOTE | 2018-08-08 18:00 | EKG12_ITS ---
Test Reason : CP ADMIT Blood Pressure : / mmHG Vent. Rate : 074 BPM Atrial Rate : 074 BPM P-R Int : 138 ms QRS Dur : 100 ms QT Int : 412 ms P-R-T Axes : 026 004 047 degrees QTc Int : 457 ms Normal sinus rhythm Moderate voltage criteria for LVH, may be normal variant Nonspecific T wave abnormality Abnormal ECG When compared with ECG of 08-AUG-2018 17:57, MANUAL COMPARISON REQUIRED, DATA IS UNCONFIRMED Confirmed by GA WILLETT, RADHA ([id number]), editor magazine RAND WHITTAKER ([id number]) on 08/14/2018 1:59:25 PM Referred By: Nery Adair Confirmed By:RADHA KOROMA MD
--- NOTE | 2018-08-08 18:03 | ED.DCSUM_ITS ---
- ER Visit Summary Date of Service: 08/08/18 Chief Complaint: Syncopal episode History of Present Illness: The patient is a 48 M with history of chronic kidney disease not on dialysis, hypertension, and congestive heart failure presents to the emergency department after syncopal episode. The patient states that for the past week, he had a scant cough and mild nasal drainage. He states he is also been pulling his wheezing. He was at work today. He states that he was just doing his regular job. He states he got acutely lightheaded and passed out. He states he was diaphoretic and mildly nauseated. He also had some left pressure that went into his arm. He states he is never had anything like this before. He denies any fever but thinks he may have had chills. He denies any abdominal pain. Patient still makes urine. Is been compliant with his medications. He states normally, his blood pressure is in the 170s 180s. He states when he took it at work it was in the 1 teens and he knew something could be going on. Physical Examination: Vital signs reviewed General: Well-nourished, well-developed Head: Normocephalic, atraumatic Eyes: Pupils equal and reactive, extraocular muscles intact Neck, supple, no lymphadenopathy Heart: Regular rate and rhythm Respiratory: No distress, clear bilaterally Abdomen: Soft, nontender, nondistended, no peritoneal signs Back: Nontender Extremities: Nontender, no edema, no cords Skin: Normal color no rash Neuro: Alert and oriented, no focal or lateralizing deficits Test Results: [] Emergency Department Course and Treatment: My suspicion is that the patient likely had a syncopal episode which is concerning for cardiac etiology. I did obtain an EKG. His QT was mildly prolonged, but this is unchanged from prior. IV was established. Screening labs were obtained. He has chronic renal insufficiency which is unchanged. Chest x-ray shows no evidence of volume overload or acute heart failure. Cardiac enzymes were normal. With small amount IV fluids, the patient was feeling improved. The patient has no known history of coronary vascular disease. He has no known history of dysrhythmia. He is at his normal state of health. However, given his history of CHF, chronic kidney disease, and prolonged QT I do feel that he would benefit from observation on telemetry. The patient is comfortable with this plan of care. Treatment Plan: [] Disposition: Observation Impression: 1. Syncopal episode This note was generated with [employer] dictation software. It may contain incorrect words, spelling, and punctuation that were not noted in review of the chart prior to signing ED Disposition - Plan for ED Patient: Instructions: ED Syncope Vasovagal Referrals: Norris Mcqueen MD [Primary Care Provider] -
--- NOTE | 2018-08-08 18:05 | RAD_ITS ---
STUDY: X-RAY CHEST REASON FOR EXAM: Male, 48 years old. Cough and possible syncopal episode. TECHNIQUE: Single AP portable view of the chest. COMPARISON: Prior chest radiograph of May 03, 2018 FINDINGS: The lungs are clear and expanded. There is no demonstrated pleural abnormality. Normal size heart. Normal mediastinum and erick. Normal visualized pulmonary arteries. Normal visualized aortic arch and descending thoracic aorta. Normal visualized thoracic spine. Normal visualized ribs, clavicles, and shoulders. There is no demonstrated abnormality of the visualized soft tissue structures of the upper abdomen. RAD/Chest 1 View (Portable) IMPRESSION: Normal x-ray examination of the chest. Electronically Signed: Sinai Mota MD at 18:17 EDT , Service support ,
[2018-08-08 18:10] LABS: Bedside Glucose 199 mg/dL (70-110)
[2018-08-08 18:20] LABS: Absolute Lymphocyte Count 1.34 X10^3/ul (0.83-4.51); Basophil# 0.01 X10^3/uL; Basophil% 0.1 % (0-1); Eosinophil# 0.17 X10^3/uL; Eosinophils% 2.4 % (0-5); Hemoglobin 12.4 g/dl (13.0-16.5); Lymphocyte # 1.34 X10^3/ul (4.0); Lymphocyte % 19.1 % (19-41); Mean Corp Hgb Conc 31.8 g/gl (32-36); Mean Corpuscular Hgb 26.3 pg (27.0-32.0); Mean Corpuscular Volume 82.8 fL (80-94); Monocyte# 0.47 X10^3/uL; Monocyte% 6.7 % (0-10); Neutrophil # 5.02 X10^3/uL (2.7-7.7); Neutrophil % 71.4 % (47-70); Platelet Count 336 K/mm3 (150-450); RBC Distribution Width CV 14.9 % (11.6-14.6); RBC Distribution Width SD 45.4 fl (35.1-43.9); Red Blood Count 4.71 M/mm3 (4.6-6.2)
[2018-08-08 18:21] LABS: POSITIVE COUNT NO; POSITIVE DIFFERENTIAL NO; POSITIVE MORPHOLOGY NO
[2018-08-08 18:33] LABS: ALB/GLOB Ratio 0.8 RATIO (0.9-2.4); AST(SGOT) 20 U/L (15-37); Alanine Aminotransfer ALT/SGPT 31 U/L (16-61); Albumin, Serum 3.6 g/dL (3.2-5.0); Alkaline Phosphatase 74 U/L (45-117); Anion Gap 9 (5-15); BUN 66 mg/dL (7-18); BUN/Creat Ratio 15.5 RATIO (10-20); Calcium,Total 8.7 mg/dL (8.5-10.1); Chloride 102 mmol/L (98-107); Creatinine, Serum 4.26 mg/dL (0.70-1.30); EST Glomerular Filtration Rate 16 mL/min (>60); Est Glom Filt Rate - Afr Amer 19 mL/min (>60); Estimated Creatinine Clearance 21.21 ml/min; Globulin 4.6 g/dL (2.2-4.2); Glucose 201 mg/dL (74-106); Potassium 4.6 mmol/L (3.5-5.1); Protein, Total 8.2 g/dL (6.4-8.2); Sodium Level 135 mmol/L (136-145)
[2018-08-08 19:28] LABS: Mucous, Urine 0 SEEN /hpf (<or=2+); Red Blood Cells-Urine 0 SEEN /hpf (0-5); Squamous Epithelial Cells - UA 0 SEEN /hpf (0-5); White Blood Cells 0 SEEN /hpf (0-5)
[2018-08-08 19:31] LABS: Color, Urine Yellow (Yellow); Glucose, Dipstick 100 mg/dl (Normal); Ketone-Dipstick Negative (Negative); Leukocyte Esterase-Dipstick Negative /ul (Negative); Nitrite-Dipstick Negative (Negative); Occult Blood-Urine 10 /ul (Negative); Protein-Dipstick 100 mg/dl (Negative); Urine Bilirubin Dipstick Negative (Negative); Urine Clarity Clear (Clear); Urine Urobilinogen Normal (Normal)
[2018-08-08 19:41] LABS: Bacteria RARE /hpf (None Seen)
--- NOTE | 2018-08-08 20:14 | PCM.HP.STD ---
Problem List (1) Syncope Status: Acute Qualifiers: Syncope type: unspecified Qualified Code(s): R55 - Syncope and collapse (2) Chest pain Status: Acute Qualifiers: Chest pain type: unspecified Qualified Code(s): R07.9 - Chest pain, unspecified (3) Acute sinusitis Status: Acute Qualifiers: Sinusitis location: unspecified location Recurrence: not specified as recurrent Qualified Code(s): J01.90 - Acute sinusitis, unspecified (4) CHF (congestive heart failure) Status: Chronic Qualifiers: Heart failure type: combined systolic and diastolic (5) Diabetes mellitus, type II Status: Chronic Qualifiers: 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 use Diabetes mellitus complication status: with unspecified complications Qualified Code(s): E11.8 - Type 2 diabetes mellitus with unspecified complications; 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 (6) VERÓNICA on CPAP Status: Chronic (7) Anemia of chronic renal failure, stage 4 (severe) Status: Chronic (8) Cardiomyopathy due to hypertension Status: Chronic Qualifiers: Heart failure presence: with heart failure Qualified Code(s): I11.0 - Hypertensive heart disease with heart failure; I43 - Cardiomyopathy in diseases classified elsewhere (9) Hypertension Status: Chronic Qualifiers: Hypertension type: essential hypertension Qualified Code(s): I10 - Essential (primary) hypertension (10) Morbid obesity Status: Chronic History of Present Illness Date of Admission: 08/09/18 Chief Complaint: Near syncope, chest discomfort. 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, HTN, HLD, Morbid Obesity, VERÓNICA on CPAP, Diabetes mellitus type II who presents to the [facility] ED on 08/08/18 with history of recent ~ 1 week ongoing URI symptoms w/ cough, congestion, rhinorrhea as well as maxillary and frontal sinus pressure as well as pain with ongoing frontal throbbing headache and post-nasal notable drip not improving with onset on day of ED presentation while at work, noted to have been in the standing position w/ very short syncopal event, without fall to the ground, lasted seconds during which he leaned against something and his co-workers eventually noted he was responsive with no prodrome prior with onset following L sided chest pressure, rated 5/10 with associated dyspnea, diaphoresis which resolved. Upon ED evaluation patient noted chest discomfort 0/10. In the ED workup included T 98.5, heart rate 84, BP 137/78, respiratory rate 18, 96% on room air, unremarkable orthostatic vital signs, CBC with WBC 7, hemoglobin 12.4, platelets 336 with minimal shift, CMP with sodium 135, BUN/creatinine 66/4.26, glucose 201, troponin less than 0.015, urinalysis unremarkable, EKG with no acute evidence of ischemia, CT brain with no acute intracranial findings, chest x-ray with no acute cardiopulmonary findings. 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 Past Medical History Past Medical History (Chronic Problems): Chronic Problems (Last Reviewed 10/25/17 @ 13:19 by Hoa Montenegro) CHF (congestive heart failure) (Chronic) Diabetes mellitus, type II (Chronic) VERÓNICA on CPAP (Chronic) Anemia of chronic renal failure, stage 4 (severe) (Chronic) Cardiomyopathy due to hypertension (Chronic) Hypertension (Chronic) Morbid obesity (Chronic) Diabetes mellitus type 2 with complications (Chronic) Chronic renal failure, stage 4 (severe) (Chronic) Medical History: Medical History (Last Reviewed 10/25/17 @ 13:19 by Hoa Montenegro) Problem with dialysis access (Acute) T82.898A VERÓNICA on CPAP (Chronic) G47.33, Z99.89 Anemia of chronic renal failure, stage 4 (severe) (Suspected) N18.4, D63.1 Cardiomyopathy due to hypertension (Chronic) I11.9, I43 Hypertension (Chronic) I10 Demand ischemia (Acute) I24.8 Morbid obesity (Chronic) E66.01 Diabetes mellitus type 2 with complications (Chronic) E11.8 Chronic renal failure, stage 4 (severe) (Chronic) N18.4 Systolic and diastolic CHF, acute (Acute) I50.41 Hypertensive urgency (Acute) I16.0 Elevated troponin (Acute) R74.8 Allergies ibuprofen Adverse Reaction (Verified 08/08/18 19:41) Other RAISES BLOOD PRESSURE Home Medications: Ambulatory Orders Medication Instructions Recorded Amlodipine [Norvasc] 10 mg PO DAILY 02/12/13 Insulin Degludec [Tresiba 30 units SC DAILY 05/25/17 Flextouch U-200] Liraglutide [Victoza] 1.8 mg SQ QHS 05/25/17 carvedilol 25 mg tablet 25 mg PO BID tab 08/02/17 Aspirin [Aspirin, Baby] 81 mg PO DAILY 08/10/17 Clonidine [Catapres-Tts 1] 1 ea TD Q7D 08/10/17 Cholecalciferol (Vitamin D3) 50,000 units PO WE 08/08/18 [D3-50] Omeprazole 20 mg PO DAILY 08/08/18 Surgical History: Surgical History (Last Reviewed 10/25/17 @ 13:19 by Hoa Montenegro) Presence of surgically created arteriovenous shunt for hemodialysis Z99.2 Surgical History: - - LUE AVF. Psychiatric History: No pertinent psych hx Lives: Spouse/ Significant Other - Patient lives with his spouse and 2 children. Smoking Status: Never smoker Tobacco Use: Non-smoker Alcohol: None Drugs: None - *Family History Maternal Family History: Family History (Last Reviewed 10/25/17 @ 13:19 by Hoa Montenegro) Mother Hypertension History Items: - - Patient notes a maternal and paternal family history of heart disease, hypertension and diabetes. Paternal Family History: Family History (Last Reviewed 10/25/17 @ 13:19 by Hoa Montenegro) Mother Hypertension History Items: - - Patient notes a maternal and paternal family history of heart disease, hypertension and diabetes. Review of Systems Constitutional: Reports: Anorexia, Chills, Malaise, Weakness, Fatigue. Denies: Fever, Weight Change HEENT: Reports: Head Aches, Post Nasal Drip, Sinus Congestion, Sinus Drainage, Sore Throat Cardiovascular: Reports: Chest Pain, Chest Pressure, Syncope. Denies: Chest Tightness, Heaviness, Light Headedness, Orthopnea, Palpitations Respiratory: Reports: Cough, Shortness of breath upon exertion, Sputum production. Denies: Shortness of breath at rest, Wheezing Gastrointestinal: Denies: Abdominal Pain, Nausea, Vomiting Genitourinary: Denies: Dysuria Musculoskeletal: Reports: Joint Pain. Denies: Joint Tenderness Skin: Denies: Rash, Wounds Neurological: Denies: Numbness, Tingling, Focal weakness Psychiatric: Denies: Anxiety, Depression, Homicidal Ideations, Suicidal Ideations Hematologic/ Lymphatic: Reports: Anemia. Denies: Easy Bruising, Easy Bleeding VTE Information - Inpt Only VTE Present on Admission: No VTE Mechan Device Prophylaxis: SCD's VTE Pharm Prophylaxis ordered?: Yes Patient Problems: Active and Suspected Problems (Last Reviewed 10/25/17 @ 13:19 by Hoa Montenegro) Syncope (Acute) Chest pain (Acute) Acute sinusitis (Acute) Subjective: Seated upright in ED bed, fatigued appearance, ill-appearing. Objective: Physical Examination: General: awake, alert, oriented x 3 and cooperative, seated upright in the ED bed, fatigued appearing, uncomfortable appearing, denies any ongoing chest discomfort. Skin: normal color, turgor, no icterus, cyanosis. HEENT: AT/NC, EOMI, PERRLA, dry MM, posterior oropharynx with stippling consistent with postnasal drip, cervical adenopathy, severe tenderness to palpation of the frontal maxillary sinus regions, no carotid bruits or JVD noted. Lungs: Diminished breath sounds lateral bases, moderate effort, mild rhonchi in the right posterior region resolved with coughing, otherwise no rales, rhonchi or wheezing. Heart: Regular rate and rhythm; no gallop, rub audible. Abdomen: soft, morbidly obese, NTTP, ND, normal BS, no HSM; however, morbidly obese habitus makes examination difficult. Extremities: no cyanosis, clubbing, or edema. Neurological: patient awake, alert, oriented x 3; cognitive function intact; pupils equally reactive to light and accomodation; cranial nerves II-XII grossly normal, moving all 4 extremities, no focal deficits, strength severely globally decreased secondary to acute presentation. Psychiatric: affect appears fatigued and mildly uncomfortable, no acute evidence of depressive or anxiety feelings. - Physical Exam Vital Signs Temp Pulse Resp BP Pulse Ox 98.5 F 77 18 156/92 H 94 08/08/18 17:51 08/08/18 19:30 08/08/18 17:51 08/08/18 19:30 08/08/18 19:30 Oxygen Delivery Method Room Air Weight: 315 lb Body Mass Index (BMI) 46.5 Finger Stick Blood Glucose 175 Laboratory Tests Past 24 Hrs 08/08/18 08/08/18 08/08/18 18:05 18:05 19:24 WBC 7.0 RBC 4.71 Hgb 12.4 L Hct 39.0 L MCV 82.8 MCH 26.3 L MCHC 31.8 L RDW 14.9 H RDW Differential 45.4 H Plt Count 336 MPV 9.0 Immature Gran % (Auto) 0.300 Neut % (Auto) 71.4 H Lymph % (Auto) 19.1 [place] % (Auto) 6.7 Eos % (Auto) 2.4 Baso % (Auto) 0.1 Absolute Neuts (auto) 5.0 Absolute Lymphs (auto) 1.34 Total Counted Not Reportable Sodium 135 L Potassium 4.6 Chloride 102 Carbon Dioxide 24.0 Anion Gap 9 BUN 66 H Creatinine 4.26 H Estim Creat Clear Calc 21.21 Est GFR (MDRD) Af Amer 19 L Est GFR (MDRD) Non-Af 16 L BUN/Creatinine Ratio 15.5 Glucose 201 H Calcium 8.7 Total Bilirubin 0.30 AST 20 ALT 31 Alkaline Phosphatase 74 Troponin I < 0.015 Total Protein 8.2 Albumin 3.6 Globulin 4.6 H Albumin/Globulin Ratio 0.8 L Urine Color Yellow Urine Clarity Clear Urine pH 6.0 Ur Specific [place] 1.010 Urine Protein 100 H Urine Glucose (UA) 100 H Urine Ketones Negative Urine Occult Blood 10 H Urine Nitrite Negative Urine Bilirubin Negative Urine Urobilinogen Normal Ur Leukocyte Esterase Negative Urine RBC 0 SEEN Urine WBC 0 SEEN Ur Squamous Epith Cells 0 SEEN Urine Bacteria RARE Urine Mucus 0 SEEN POC Glucose 08/08/18 18:01 POC Glucose 199 H Assessment/Plan All Active Problems (Last Reviewed 10/25/17 @ 13:19 by Hoa Montenegro) Syncope (Acute) Chest pain (Acute) Acute sinusitis (Acute) Problem with dialysis access (Acute) Demand ischemia (Acute) Systolic and diastolic CHF, acute (Acute) Hypertensive urgency (Acute) Elevated troponin (Acute) 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, HTN, HLD, Morbid Obesity, VERÓNICA on CPAP, Diabetes mellitus type II who presents to the [facility] ED on 08/08/18 with history of recent ~ 1 week ongoing URI symptoms w/ cough, congestion, rhinorrhea as well as maxillary and frontal sinus pressure as well as pain with ongoing frontal throbbing headache and post-nasal notable drip not improving with onset on day of ED presentation while at work, noted to have been in the standing position w/ very short syncopal event, without fall to the ground, lasted seconds during which he leaned against something and his co-workers eventually noted he was responsive with no prodrome prior with onset following L sided chest pressure. (1) Chest Pain and Atypical ? Syncopal Event: Unclear etiology although given recent illness suspect likely related. ED workup included T 98.5, heart rate 84, BP 137/78, respiratory rate 18, 96% on room air, unremarkable orthostatic vital signs, CBC with WBC 7, hemoglobin 12.4, platelets 336 with minimal shift, CMP with sodium 135, BUN/creatinine 66/4.26, glucose 201, troponin less than 0.015, urinalysis unremarkable, EKG with no acute evidence of ischemia, CT brain with no acute intracranial findings, chest x-ray with no acute cardiopulmonary findings. Will admit to PCU, place on a monitored bed to assure no acute myocardial infarction with serial cardiac enzymes and EKGs. Given notable history we will pursue a.m. cardiac stress testing as well as echocardiogram. FLP in AM. Mag pending. (2) Suspected Acute Sinusitis: CT head not marked appearing and CBC without marked WBC elevation or shift, but extremely tender on examination and findings clinically consistent. Will initiate augmentin renally dosed regimen, aerosols, scheduled nasal spray, scheduled flonase. CXR upon admission without acute findings. Respiratory viral panel requested. (3) Combined Chronic CHF: Maintain on home regimen aspirin, Coreg, not on ACEI/ARB secondary to renal disease, not on diuretic, not on statin. FLP in AM. (4) CKD stage IV: Secondary to hypertensive disease, admission BUN/Cr 66/4.26, similar to baseline, trend. (5) Diabetes mellitus type II: Will continue home insulin regimen, ADA diet, accu checks w/ ISS, nutrition consulted for education and teaching. (6) Hypertension: Continue home regimen including Norvasc, Coreg, clonidine, PRN hydralazine. (7) Hyperlipidemia: Patient is not on regimen. AM FLP. (8) Morbid Obesity: Weight loss and lifestyle changes encouraged, nutrition consulted. (9) VERÓNICA: Maintain on CPAP q HS. (10) GERD: PPI. (11) DVT Prophylaxis: SCDs, renally dosed lovenox. Code Visit OBSV E&M: [id number] Initial observation care L3
--- NOTE | 2018-08-08 20:46 | EKG12_ITS ---
Test Reason : SYNCOPE Blood Pressure : / mmHG Vent. Rate : 084 BPM Atrial Rate : 084 BPM P-R Int : 148 ms QRS Dur : 098 ms QT Int : 398 ms P-R-T Axes : 039 008 040 degrees QTc Int : 470 ms Normal sinus rhythm Minimal voltage criteria for LVH, may be normal variant Nonspecific T wave abnormality Prolonged QT Abnormal ECG Confirmed by MICKY GÓMEZ ([id number]), medical transcription editor RAND WHITTAKER ([id number]) on 08/12/2018 4:51:33 PM Referred By: Nery Adair Confirmed By:MICKY GÓMEZ
--- NOTE | 2018-08-08 20:46 | ECHOCS_ITS ---
Reason For Study: Near syncope Procedure This was a 2D Doppler, Color Flow transthoracic echocardiogram. Exam performed in department. Left Ventricle Mild concentric left ventricular hypertrophy. Moderately dilated left ventricle. The estimated ejection fraction is 45 %. Stage 1 diastolic dysfunction. There is moderate global hypokinesis of the left ventricle. Right Ventricle Normal size and thickness. Normal systolic function. Atria The left atrium is mildly enlarged. Normal right atrium. Normal atrial septum. Mitral Valve The mitral valve is structurally normal. No prolapse or stenosis seen. Tricuspid Valve Normal tricuspid valve. Trivial tricuspid valve insufficiency. Right ventricular systolic pressure estimated to be 35 mmHg. Aortic Valve Normal aortic valve. Trisinus/trileaflet aortic valve. Pulmonic Valve Normal pulmonic valve. Great Vessels Normal aortic root. Normal arch. Normal inferior vena cava. Inferior vena cava collapse with sniff. Pericardium/Pleural No pericardial effusion. Medication Diluted definity 2.5ml given slow IV push to enhance endocardial definition. MMode/2D Measurements & Calculations LVIDd: 6.3 cm IVSd: 1.5 cm Ao root diam: 2.8 cm LVIDs: 5.1 cm LVPWd: 1.0 cm RVDd: 3.7 cm FS: 19.8 % LAV(MOD-bp): 71.1 ml LA A4 area: 21.4 cm2 LA dimension(2D): 3.6 cm LAV(MOD-bp) Indexed: 28.4 ml/m2 LAV(MOD-sp2): 75.9 ml LAV(MOD-sp4): 63.1 ml RA A4 area: 14.3 cm2 Doppler Measurements & Calculations MV E max john: 73.3 cm/sec Lat Peak E' John: 9.1 cm/sec Med Peak E' John: 7.4 cm/sec MV A max john: 81.6 cm/sec E/E' lat: 8.1 E/E' med: 9.9 MV E/A: 0.90 Ao V2 max: 164.4 cm/sec LV V1 max: 106.3 cm/sec PA V2 max: 91.1 cm/sec Ao max P.8 mmHg LV V1 max P.5 mmHg TR max john: 271.6 cm/sec TR max P.5 mmHg Interpretation Summary Mild concentric left ventricular hypertrophy. Moderately dilated left ventricle. The estimated ejection fraction is 45 %. There is moderate global hypokinesis of the left ventricle. Stage 1 diastolic dysfunction. The left atrium is mildly enlarged. Trivial tricuspid valve insufficiency. Right ventricular systolic pressure estimated to be 35 mmHg. Compared to echo report dated 01/09/2015, LV function has remained about the same and RVSP had decreased from 54 to 35 mm Hg. The study was technically difficult. Contrast injection was performed. Ordering Physician: Nery Adair Referring Physician: Norris Mcqueen Performed By: Carolyn Barajas RDCS
[2018-08-08 21:49] LABS: Magnesium 2.8 mg/dL (1.6-2.6)
[2018-08-08] MEDS: 0.9% Normal Saline 1,000 ML 100 ML IV (23:26)
[2018-08-08] MEDS: Amox/Clavulanate 500 MG Tablet PO (23:27)
[2018-08-08] MEDS: Carvedilol 25 MG Tablet PO (23:27)
[2018-08-08] MEDS: Insulin Lispro 100 UNIT/ML INSULN.PEN SC (23:28)
[2018-08-08] MEDS: guaiFENesin 1,200 MG Tablet 1200 MG PO (23:29)
[2018-08-08] MEDS: Ipratropium/Albuterol Sulfate 3 ML AMPUL.NEB INHALATION (23:30)
[2018-08-08] MEDS: 0.9% NaCl Peripheral Flush Adult/Peds IV (23:33)
[2018-08-08 23:46] LABS: Bedside Glucose 237 mg/dL (70-110)
[2018-08-09] VITALS (10 sets, daily range): BP systolic 142–158; BP diastolic 82–99; PULSE 61–87; RESP 16–18; TEMP 36.4–36.6; O2SAT 96–100
[2018-08-09] MEDS: cloNIDine HCl 0.1 MG Patch TRANSDERM. (00:12)
[2018-08-09] MEDS: Sodium Chloride 0.65% 1 SPRAY SPRAY.BTL 2 SPRAY NASAL ×2 (05:47→14:28)
[2018-08-09] MEDS: Aspirin 81 MG TAB.CHEW PO (05:48)
--- NOTE | 2018-08-09 05:55 | EKG12_ITS ---
Test Reason : AM Blood Pressure : / mmHG Vent. Rate : 082 BPM Atrial Rate : 082 BPM P-R Int : 144 ms QRS Dur : 100 ms QT Int : 434 ms P-R-T Axes : 034 010 052 degrees QTc Int : 507 ms Normal sinus rhythm Minimal voltage criteria for LVH, may be normal variant Nonspecific T wave abnormality Prolonged QT Abnormal ECG When compared with ECG of 08-AUG-2018 21:22, MANUAL COMPARISON REQUIRED, DATA IS UNCONFIRMED Confirmed by GA WILLETT, RADHA ([id number]), rewrite editor RAND WHITTAKER ([id number]) on 08/14/2018 1:58:43 PM Referred By: Nery Adair Confirmed By:RADHA KOROMA MD
[2018-08-09 06:42] LABS: International Normalized Ratio 1.1; Partial Thromboplast Time 30.3 Seconds (24.1-36.2); Prothrombin Time (Protime)PT. 13.9 SECONDS (11.7-14.9)
[2018-08-09 06:44] LABS: Hematocrit 37.6 % (40-54); Mean Corp Hgb Conc 31.9 g/gl (32-36); Mean Corpuscular Volume 81.4 fL (80-94); Mean Platelet Vol. 9.8 fl (6.2-12.0); Platelet Count 336 K/mm3 (150-450); RBC Distribution Width CV 14.9 % (11.6-14.6); RBC Distribution Width SD 43.8 fl (35.1-43.9); Red Blood Count 4.62 M/mm3 (4.6-6.2); White Blood Count 6.2 K/mm3 (4.4-11.0)
[2018-08-09 06:47] LABS: Scan Indicated on CBC? Y/N NO
[2018-08-09 06:55] LABS: ALB/GLOB Ratio 0.7 RATIO (0.9-2.4); AST(SGOT) 18 U/L (15-37); Alanine Aminotransfer ALT/SGPT 31 U/L (16-61); Albumin, Serum 3.3 g/dL (3.2-5.0); Alkaline Phosphatase 69 U/L (45-117); Anion Gap 8 (5-15); BUN 65 mg/dL (7-18); BUN/Creat Ratio 16.8 RATIO (10-20); Calcium,Total 8.9 mg/dL (8.5-10.1); Chloride 108 mmol/L (98-107); Cholesterol 166 mg/dL (200); Creatinine, Serum 3.86 mg/dL (0.70-1.30); EST Glomerular Filtration Rate 18 mL/min (>60); Est Glom Filt Rate - Afr Amer 22 mL/min (>60); Globulin 4.5 g/dL (2.2-4.2); Glucose 184 mg/dL (74-106); High Density Lipoprotein 30 mg/dL; Potassium 4.4 mmol/L (3.5-5.1); Protein, Total 7.8 g/dL (6.4-8.2); Sodium Level 140 mmol/L (136-145); Triglycerides 166 mg/dL; Very Low Density Lipoprotein 33 mg/dL (5-40)
[2018-08-09 07:06] LABS: Bedside Glucose 164 mg/dL (70-110)
[2018-08-09] MEDS: Insulin Lispro 100 UNIT/ML INSULN.PEN SC ×2 (08:33→10:55)
[2018-08-09] MEDS: Amox/Clavulanate 500 MG Tablet PO (08:33)
[2018-08-09] MEDS: Fluticasone 0.05% 1 SPRAY NASAL.SRY NASAL (09:13)
[2018-08-09] MEDS: guaiFENesin 1,200 MG Tablet 1200 MG PO (09:13)
[2018-08-09] MEDS: amLODIPine 10 MG Tablet PO (09:13)
[2018-08-09] MEDS: Enoxaparin 30 MG/0.3 ML Syringe SC (09:13)
[2018-08-09] MEDS: Carvedilol 25 MG Tablet PO (09:13)
[2018-08-09] MEDS: Pantoprazole Sodium 20 MG Tablet PO (09:22)
--- NOTE | 2018-08-09 09:52 | STRESSREP_ITS ---
Stress Test Report Pharmacologic myocardial perfusion stress test. 48-year-old man with a history of chest pain. Medications Norvasc, Catapres, aspirin, Coreg. Stress protocol. Resting EKG demonstrates normal sinus rhythm with a rate of 83 bpm normal intervals are noted resting blood pressure 158/100 mmHg. Left ventricular hypertrophy is noted. 0.4 mg of regadenoson was infused per usual protocol followed by rapid intravenous saline flush injection continuous EKG monitoring was performed. The maximum heart rate attained was 114 bpm which was 66% of maximum predicted heart rate the maximum workload was 1 metabolic equivalent. At rest there were no ST or T wave changes noted suggest abnormal flow reserve at peak infusion nonspecific ST-T wave changes were noted with no meet the criteria for ischemia. No clinical angina was noted. Myocardial perfusion protocol. 14.8 mCi of technetium 99m sestamibi was injected at rest. 0.4 mg of regadenos on was infused per usual protocol peak infusion 44.7 mCi of technetium 99m sestamibi was injected stress images were obtained stress and rest images were reconstructed and compared in the short axis vertical and horizontal long axis. Gated images were also obtained for Perfusion SPECT analysis. Review of the images demonstrate a normal cardiac silhouette size. There is significant GI and inferior wall attenuation artifact and obscuration noted. The anterior wall septum and lateral wall appear to be well perfused. The inferior wall is not very well visualized. Ischemia or previous infarct cannot be completely excluded. Gated SPECT analysis. The gated ejection fraction is estimated to be 44%. The above is suggestive of a cardiomyopathy. Conclusion: Cardiomyopathy. No obvious ischemia noted.
[2018-08-09 11:55] LABS: Bedside Glucose 197 mg/dL (70-110)
--- NOTE | 2018-08-09 12:02 | MRI_ITS ---
STUDY: MRI BRAIN WITHOUT CONTRAST REASON FOR EXAM: Male, 48 years old. Syncopal episode lasted a few seconds. History of CHF, renal failure and diabetes. TECHNIQUE: Standardized multiplanar fat and water weighted pulse sequences were obtained. COMPARISON: CT head without contrast 08/08/2018. FINDINGS: No restricted diffusion to suspect acute or subacute ischemic infarct. No focal signal abnormalities throughout the brain parenchyma. No midline shift and no mass effects. Normal size of the ventricles and extra-axial spaces for the patient's age. Normal white matter tracts of the supratentorial brain. Normal bilateral basal ganglia. Normal thalami. There is no extra-axial fluid accumulation. Normal flow voids within the major intracranial circulation suggesting patency by spin echo criteria. Normal sella turcica, pituitary gland, infundibular stalk, optic chiasm and hypothalamus. Normal tectal plate and pineal gland. Normal midbrain, david and medulla. Normal cerebellum. Normal basal cisterns. Normal bilateral temporal bones. Normal bilateral internal auditory canals. No demonstrated orbital abnormality, within the constraints of a routine brain study. Normal visualized paranasal sinuses. Normal calvarium and skull base. Normal visualized soft tissue structures. Normal visualized upper cervical spine. MRI/Brain without Contrast IMPRESSION: Normal unenhanced MRI of the brain. Electronically Signed: Terrell Woodson MD at 13:33 EDT , Service support ,
--- NOTE | 2018-08-09 12:17 | NURSING ---
Pt taken down for Brain MRI.
[2018-08-09] MEDS: Ipratropium/Albuterol Sulfate 3 ML AMPUL.NEB INHALATION (13:14)
--- NOTE | 2018-08-09 14:17 | DCINST_ITS ---
- Discharge Diagnoses Current Active Problems: Current Active and Chronic Problems (Last Reviewed 10/25/17 @ 13:19 by Hoa Monten[place]) Atypical chest pain-noncardiac Acute sinusitis (Acute) CHF (congestive heart failure) (Chronic) Diabetes mellitus, type II (Chronic) You will use the following diet at home:: Calorie/Carbohydrate Controlled (specify 1200, 1400, etc), Cardiac Discharge Activity: Return to Normal Activity Call your doctor if you observe: Shortness of breath, Dizziness, Fainting spells, Chest pain Instructions: ED Syncope Vasovagal Allergies/Adverse Reactions: Allergies ibuprofen Adverse Reaction (Verified 08/08/18 19:41) Other RAISES BLOOD PRESSURE Medications to take at Discharge Amlodipine [Norvasc] 10 mg PO DAILY 02/12/13 Insulin Degludec [Tresiba Flextouch U-200] 30 units SC DAILY 05/25/17 Liraglutide [Victoza] 1.8 mg SQ QHS 05/25/17 carvedilol 25 mg tablet 25 mg PO BID tab 08/02/17 Aspirin [Aspirin, Baby] 81 mg PO DAILY 08/10/17 Clonidine [Catapres-Tts 1] 1 ea TD Q7D 08/10/17 Cholecalciferol (Vitamin D3) [D3-50] 50,000 units PO WE 08/08/18 Omeprazole 20 mg PO DAILY 08/08/18 Amox/Clavulanate Tablet [Augmentin Tablet] 500 mg PO BIDCM #18 tablet 08/09/18 Fluticasone 0.05% [Flonase Nasal Reeds] 1 spray NASAL BID #0 nasal.sry 08/09/18 The following prescriptions were given: Amox/Clavulanate Tablet [Augmentin Tablet] 500 mg PO BIDCM #18 tablet Primary Care Physician: Norris Mcqueen MD [Primary Care Provider] - Please follow up with your Primary Care Physician in: 1 Week Test Results: Test results from this visit will be discussed in further detail at your follow- up appointment, if applicable. Please Follow Up With: Jade Lamar MD When: As scheduled Proposed Discharge Date: 08/09/18
--- NOTE | 2018-08-09 14:18 | PCM.DC.SUM ---
Discharge Date and Diagnosis Date of Admission: 08/09/18 Date of Discharge: 08/09/18 - Primary Discharge Diagnosis Active and Suspected Problems (Last Reviewed 10/25/17 @ 13:19 by Hoa Montenegro) 1. Atypical chest pain, ACS ruled out 2. Presyncope/lightheadedness 3. Subjective left-sided weakness, CVA ruled out 4. Acute sinusitis 5. Combined chronic CHF 6. Chronic kidney disease stage IV 7. Type 2 diabetes mellitus 8. Hypertension 9. Hyperlipidemia 10. Morbid obesity 11. VERÓNICA 12. GERD - Secondary Discharge Diagnosis Chronic Problems (Last Reviewed 10/25/17 @ 13:19 by Hoa Montenegro) CHF (congestive heart failure) (Chronic) Diabetes mellitus, type II (Chronic) VERÓNICA on CPAP (Chronic) Anemia of chronic renal failure, stage 4 (severe) (Chronic) Cardiomyopathy due to hypertension (Chronic) Hypertension (Chronic) Morbid obesity (Chronic) Diabetes mellitus type 2 with complications (Chronic) Chronic renal failure, stage 4 (severe) (Chronic) Hospital Course and Treatment Imaging Results: Diagnostic Data Brain CT 08/08/18 17:59 IMPRESSION: No acute intracranial abnormalities Electronically Signed: Beto Carver MD at 18:58 EDT , Service support , Chest X-Ray 08/08/18 18:05 IMPRESSION: Normal x-ray examination of the chest. Electronically Signed: Sinai Mota MD at 18:17 EDT , Service support , Brain MRI 08/09/18 12:02 IMPRESSION: Normal unenhanced MRI of the brain. Electronically Signed: Terrell Woodson MD at 13:33 EDT , Service support , Operations: None Procedures: 2-D Echocardiogram, Stress test Summary of Care Provided: The patient is a 48 year old M admitted 08/09/2018 due to near syncope and chest discomfort. 1. Atypical chest pain, ACS ruled out-EKG without ST-T changes. Troponin negative. CT of brain without acute findings. Chest x-ray unremarkable. Patient underwent nuclear stress test which was negative for ischemia. Echocardiogram showed an EF of 45%, stage I diastolic dysfunction, RVSP estimated to be 35 mmHg. Compared to prior echo in 2015 LV function has remained the same and RVSP has decreased from 54-35 mmHg. Orthostatic vitals negative. Follow-up with primary care physician in 1 week. 2. Presyncope/lightheadedness-workup unremarkable as noted above. Patient denies further lightheadedness/presyncope. 3. Subjective left-sided weakness, CVA ruled out-Patient reports left sided weakness prior to admission, currently resolved. MRI brain obtained which was normal. 4. Acute sinusitis-continue Augmentin 10-day course and Flonase at discharge. Respiratory panel negative. 5. Combined chronic CHF-continue home aspirin, Coreg. 6. Chronic kidney disease stage IV-at baseline, continue outpatient follow-up with nephrology. Patient had left upper arm AV fistula placed by Dr. Gutierrez which is not yet being used. 7. Type 2 diabetes mellitus-blood glucose well controlled during admission. Continue home regimen. 8. Hypertension-stable, continue home Norvasc, Coreg, clonidine regimen. 9. Hyperlipidemia-not on statin. Fasting lipid panel within normal limits. 10. Morbid obesity-encouraged diet lifestyle modifications. 11. VERÓNICA-continue CPAP regimen. 12. GERD-continue PPI. Patient seen and examined prior to discharge. Physical assessment as noted below. Patient is stable for discharge with follow up recommendations as noted above. This patient was seen by MARSHA Nagel under the supervision of Dr. Huerta. - Physical Exam General: Alert, Oriented x3, Cooperative HEENT: Atraumatic, PERRLA, EOMI, Normocephalic Neck: Supple, No JVD, Negative Carotid Bruits Lungs: Clear to auscultation, Normal air movement Cardiovascular: Regular rate, Regular Rhythm, Normal S1, Normal S2, No murmurs Abdomen: Bowel Sounds Present, Soft, Non Tender, Non-Distended, Obese Extremities: No clubbing, No cyanosis, No edema Skin: No rashes, No breakdown Musculoskeletal: No Tenderness to Palpation of Joints or Extremities Neurological: Cranial nerves II-XII grossly intact, Neuro grossly intact Psych/Mental Status: Normal Affect, Appropriate Vital Signs Temp Pulse Resp BP Pulse Ox 97.6 F L 80 16 149/87 H 96 08/09/18 10:06 08/09/18 10:35 08/09/18 10:06 08/09/18 10:06 08/09/18 10:06 Oxygen Delivery Method Room Air Weight: 298 lb 15.149 oz Body Mass Index (BMI) 44.1 Finger Stick Blood Glucose 175 Intake and Output for Last 24 Hours 08/07/18 08/08/18 08/09/18 23:59 23:59 23:59 Intake Total 1181 / 1181 Output Total 400 / 400 Balance 781 / 781 Microbiology Past 72 Hours 08/08/18 21:15 Respiratory Panel (PCR) - Final Mucosa - Nasopharyngeal Laboratory Tests Past 24 Hrs 08/08/18 08/08/18 08/08/18 18:05 18:05 18:05 WBC 7.0 RBC 4.71 Hgb 12.4 L Hct 39.0 L MCV 82.8 MCH 26.3 L MCHC 31.8 L RDW 14.9 H RDW Differential 45.4 H Plt Count 336 MPV 9.0 Immature Gran % (Auto) 0.300 Neut % (Auto) 71.4 H Lymph % (Auto) 19.1 Brooke % (Auto) 6.7 Eos % (Auto) 2.4 Baso % (Auto) 0.1 Absolute Neuts (auto) 5.0 Absolute Lymphs (auto) 1.34 Total Counted Not Reportable PT INR APTT Sodium 135 L Potassium 4.6 Chloride 102 Carbon Dioxide 24.0 Anion Gap 9 BUN 66 H Creatinine 4.26 H Estim Creat Clear Calc 21.21 Est GFR (MDRD) Af Amer 19 L Est GFR (MDRD) Non-Af 16 L BUN/Creatinine Ratio 15.5 Glucose 201 H Calcium 8.7 Magnesium 2.8 H Total Bilirubin 0.30 AST 20 ALT 31 Alkaline Phosphatase 74 Troponin I < 0.015 Total Protein 8.2 Albumin 3.6 Globulin 4.6 H Albumin/Globulin Ratio 0.8 L Triglycerides Cholesterol LDL Cholesterol VLDL Cholesterol HDL Cholesterol Urine Color Urine Clarity Urine pH Ur Specific [place]itten Urine Protein Urine Glucose (UA) Urine Ketones Urine Occult Blood Urine Nitrite Urine Bilirubin Urine Urobilinogen Ur Leukocyte Esterase Urine RBC Urine WBC Ur Squamous Epith Cells Urine Bacteria Urine Mucus 08/08/18 08/08/18 08/09/18 19:24 21:15 00:13 WBC RBC Hgb Hct MCV MCH MCHC RDW RDW Differential Plt Count MPV Immature Gran % (Auto) Neut % (Auto) Lymph % (Auto) Brooke % (Auto) Eos % (Auto) Baso % (Auto) Absolute Neuts (auto) Absolute Lymphs (auto) Total Counted PT INR APTT Sodium Potassium Chloride Carbon Dioxide Anion Gap BUN Creatinine Estim Creat Clear Calc Est GFR (MDRD) Af Amer Est GFR (MDRD) Non-Af BUN/Creatinine Ratio Glucose Calcium Magnesium Total Bilirubin AST ALT Alkaline Phosphatase Troponin I < 0.015 < 0.015 Total Protein Albumin Globulin Albumin/Globulin Ratio Triglycerides Cholesterol LDL Cholesterol VLDL Cholesterol HDL Cholesterol Urine Color Yellow Urine Clarity Clear Urine pH 6.0 Ur Specific [place]itten 1.010 Urine Protein 100 H Urine Glucose (UA) 100 H Urine Ketones Negative Urine Occult Blood 10 H Urine Nitrite Negative Urine Bilirubin Negative Urine Urobilinogen Normal Ur Leukocyte Esterase Negative Urine RBC 0 SEEN Urine WBC 0 SEEN Ur Squamous Epith Cells 0 SEEN Urine Bacteria RARE Urine Mucus 0 SEEN 08/09/18 08/09/18 08/09/18 05:57 05:57 05:57 WBC 6.2 RBC 4.62 Hgb 12.0 L Hct 37.6 L MCV 81.4 MCH 26.0 L MCHC 31.9 L RDW 14.9 H RDW Differential 43.8 Plt Count 336 MPV 9.8 Immature Gran % (Auto) Neut % (Auto) Lymph % (Auto) Brooke % (Auto) Eos % (Auto) Baso % (Auto) Absolute Neuts (auto) Absolute Lymphs (auto) Total Counted PT 13.9 INR 1.1 APTT 30.3 Sodium 140 Potassium 4.4 Chloride 108 H Carbon Dioxide 24.0 Anion Gap 8 BUN 65 H Creatinine 3.86 H Estim Creat Clear Calc 23.40 Est GFR (MDRD) Af Amer 22 L Est GFR (MDRD) Non-Af 18 L BUN/Creatinine Ratio 16.8 Glucose 184 H Calcium 8.9 Magnesium Total Bilirubin 0.30 AST 18 ALT 31 Alkaline Phosphatase 69 Troponin I Total Protein 7.8 Albumin 3.3 Globulin 4.5 H Albumin/Globulin Ratio 0.7 L Triglycerides 166 Cholesterol 166 LDL Cholesterol 103 VLDL Cholesterol 33 HDL Cholesterol 30 L Urine Color Urine Clarity Urine pH Ur Specific [place] Urine Protein Urine Glucose (UA) Urine Ketones Urine Occult Blood Urine Nitrite Urine Bilirubin Urine Urobilinogen Ur Leukocyte Esterase Urine RBC Urine WBC Ur Squamous Epith Cells Urine Bacteria Urine Mucus POC Glucose 08/09/18 08/09/18 08/08/18 10:53 06:20 23:20 POC Glucose 197 H 164 H 237 H 08/08/18 18:01 POC Glucose 199 H Discharge Diet: 1800 Calorie Control Diet, Carb Control Diet Discharge Activity: Return to Normal Activity Call your doctor if you observe: Shortness of breath, Dizziness, Fainting spells, Chest pain Home Medications: Medications to take at Discharge Amlodipine [Norvasc] 10 mg PO DAILY 02/12/13 Insulin Degludec [Tresiba Flextouch U-200] 30 units SC DAILY 05/25/17 Liraglutide [Victoza] 1.8 mg SQ QHS 05/25/17 carvedilol 25 mg tablet 25 mg PO BID tab 08/02/17 Aspirin [Aspirin, Baby] 81 mg PO DAILY 08/10/17 Clonidine [Catapres-Tts 1] 1 ea TD Q7D 08/10/17 Cholecalciferol (Vitamin D3) [D3-50] 50,000 units PO WE 08/08/18 Omeprazole 20 mg PO DAILY 08/08/18 Amox/Clavulanate Tablet [Augmentin Tablet] 500 mg PO BIDCM #18 tablet 08/09/18 Fluticasone 0.05% [Flonase Nasal Alexander] 1 spray NASAL BID #0 nasal.sry 08/09/18 Following Prescrptions Were Given to Patient: Amox/Clavulanate Tablet [Augmentin Tablet] 500 mg PO BIDCM #18 tablet Primary Care Physician: Norris Mcqueen MD [Primary Care Provider] - Please follow up with your Primary Care Physician in: 1 Week Please Follow Up With: Jade Lamar MD When: As scheduled Patient Instructions: ED Syncope Vasovagal Disposition: Home Minutes spent on discharge:: 35 Patient Condition:: Stable Medical Necessity - Tobacco Use Smoking Status: Never smoker Tobacco Use: Non-smoker Meaningful Use Info Meaningful Use Diagnoses (Choose all that apply): None applicable
== END 2018-08-09 14:16 | disposition home or self-care (01) ==
LOC: ED 18:16 → PCU 20:44
PROVIDERS: Admitting Provider Family Medicine; Emergency Provider Emergency Medicine; Family Provider Family Medicine; PCP Family Medicine; Referring Provider Family Medicine; Visit Provider Internal Medicine
DX: R55 Syncope and collapse (principal); R07.89 Other chest pain; R53.1 Weakness; I13.0 Hypertensive heart and chronic kidney disease with heart failure and stage 1 through stage 4 chronic kidney disease, or unspecified chronic kidney disease; I50.42 Chronic combined systolic (congestive) and diastolic (congestive) heart failure; N18.4 Chronic kidney disease, stage 4 (severe); E11.22 Type 2 diabetes mellitus with diabetic chronic kidney disease; E66.01 Morbid (severe) obesity due to excess calories; K21.9 Gastro-esophageal reflux disease without esophagitis; G47.33 Obstructive sleep apnea (adult) (pediatric); E78.5 Hyperlipidemia, unspecified; J01.90 Acute sinusitis, unspecified; Z79.4 Long term (current) use of insulin; Z79.82 Long term (current) use of aspirin; Z79.899 Other long term (current) drug therapy; Z68.41 Body mass index [BMI] 40.0-44.9, adult; Z71.3 Dietary counseling and surveillance; D63.1 Anemia in chronic kidney disease
CPT/HCPCS: 36415; 70450; 70551; 71045; 78452; 80053; 80061; 81001; 82962; 83735; 84484; 85025; 85027; 85610; 85730; 87633; 93005; 93017; 93306; 94640; 94660; 96360; 96361; 96372; 99218; 99284; A9500; J7030; J7040; Q9957; A4216; C8929; G0378; J2785

== ENCOUNTER 2018-08-13 03:15 | Emergency (ER) | payer BC, SELFPAY ==
[2018-08-08 20:51] VITALS: BMI 44.1
[2018-08-13 03:16] VITALS: BP 192/93; PULSE 106; RESP 18; TEMP 36.9; O2SAT 97; BMI 44.9
--- NOTE | 2018-08-13 03:39 | ED.DCSUM_ITS ---
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 Context: Sudden Onset Timing: Intermittent Quality: Generalized weakness Location: As previously documented Current Severity: Mild Maximum Severity: Moderate Worsened by: Blunt trauma secondary to fall Relieved by: Nothing Associated Symptoms: Persistent leg numbness, recent workup negative Narrative: Patient is a middle-aged male recently admitted to the hospital for respiratory infection with positive blood cultures. He was discharged this past Sunday. Will review records to verify. Patient state he took his lunch break at 2000. When he latisha from a sitting position his legs gave out and he fell to his knees. He required assistance. 2 coworkers had to help him rise to his feet. He completed his shift. He had a another episode where he fell. He states that 0200 he walked to the restroom. When he attempted to flush the commode he fell backwards. He fell onto metal). He reports low back pain. He states his left leg is numb. It has been numb for the past 1+ week. He had an MRI of his back which was unremarkable. He denies bowel or bladder dysfunction. He denies saddle paresthesia or anesthesia. He reports generalized weakness. He denies fever, chills or night sweats. Prior similar symptoms: No Recent Illness/Hospitalization: Yes - Respiratory infection with positive blood cultures - Past Medical History (1) Demand ischemia Status: Acute (2) Hypertensive urgency Status: Acute (3) Syncope Status: Acute (4) Systolic and diastolic CHF, acute Status: Acute (5) Anemia of chronic renal failure, stage 4 (severe) Status: Chronic (6) Cardiomyopathy due to hypertension Status: Chronic (7) Hypertension Status: Chronic (8) Morbid obesity Status: Chronic (9) VERÓNICA on CPAP Status: Chronic Past Medical History - Allergies and Home Meds Allergies/Adverse Reactions: Allergies ibuprofen Adverse Reaction (Verified 08/13/18 03:21) Other RAISES BLOOD PRESSURE Primary Care Physician: Norris Mcqueen MD [Primary Care Provider] - Prior records reviewed: Yes Surgical History: - - NOREEN ZAMORA. Lives: Spouse/ Significant Other Smoking Status: Never smoker Alcohol: None - Family History Paternal Family History: Family History (Last Reviewed 10/25/17 @ 13:19 by Hoa Montenegro) Mother Hypertension Family History: Reports: - - Patient notes a maternal and paternal family history of heart disease, hypertension and diabetes. Maternal Family History: Family History (Last Reviewed 10/25/17 @ 13:19 by Hoa Montenegro) Mother Hypertension Family History: Reports: - - Patient notes a maternal and paternal family history of heart disease, hypertension and diabetes. Review of Systems General: Denies: Chills, Fever, Malaise, Sweats Eyes: Denies: Visual changes - bilaterally, Blurred Vision - bilaterally, Diplopia ENT: Denies: Bilateral ear pain, Rhinorrhea, Sore throat Cardiovascular: Denies: Chest pain, Palpitations Respiratory: Denies: Dyspnea, Cough, Dyspnea on exertion, Orthopnea Gastrointestinal: Denies: Abdominal pain, Nausea, Vomiting, Diarrhea, Melena, Hematochezia Genitourinary: Denies: Dysuria, Hematuria, Frequency Musculoskeletal: Reports: Back pain. Denies: Myalgias, Neck pain, Swelling, Extremity Pain Skin: Denies: Rash Neurological: Reports: Weakness - Generalized, Numbness - Entire left lower extremity not in a dermatomal distribution Endocrine: Denies: Polyuria, Polydipsia Hematologic: Denies: Easy bruising, Easy bleeding Physical Exam Vital Signs/Narrative: Vital Signs Temp Pulse Resp BP Pulse Ox 08/13/18 03:16 98.4 F 106 H 18 192/93 H 97 Inital Vital Signs reviewed: Yes General: Well nourished, Well developed, No Acute Distress Head: Normocephalic, Atraumatic Eyes: Perrl, EOMI. Negative for: Pale conjunctiva, Scleral icterus ENT: Moist mucous membranes, No rhinorrhea Neck: Supple, Nontender, No lymphadenopathy, No JVD Cardiovascular: Regular rate, Regular rhythm, No murmurs, Normal S1, Normal S2 Respiratory: No distress, CTA bilaterally, Chest nontender Abdomen: Soft, Nontender, Nondistended, Normal bowel sounds, No masses Back: - - Central as well as bilateral tenderness. Unable to visualize back at this time because of body habitus and difficulty rolling patient because of pain. Extremities: Nontender, No edema, - - There is no asymmetry, swelling, discoloration, leg vein distention, palpable cords or tenderness along the distribution of the deep venous system. Skin: Normal color, No rash. Negative for: Diaphoresis, Jaundice Neurological: Alert, Oriented x3, Cranial nerves II-XII grossly intact, Normal Strength - EHL is intact bilaterally. He is able to hold his leg in full extens ion against gravity. There is no weakness with dorsi or plantar flexion of his foot. He reports altered sensation left lower extremity. This is not a new symptom., Normal Sensation, Normal DTR - Patella and ankle reflex are 1-2+ and symmetric. Psychological: Normal affect, Normal Mood Diagnostic/Tx/Re-eval Chest X-Ray - ED: Read by ED Physician Three-view x-ray of the LS-spine was obtained. There is no evidence of fracture or dislocation of the lumbar spine. There is a grade 1 spondylolisthesis L3/L4. Impressions Lumbar Spine X-Ray 08/13/18 03:40 IMPRESSION: Multilevel degenerative changes. Spondylolysis and grade 1 spondylolisthesis at the L3-4 level. No demonstrated fracture. Electronically Signed: Nuno Olguin MD at 4:03 EDT , Service support , 08/13/18 03:40 Lumbar Spine 2 or 3 Views [RAD] Stat Laboratory Results 08/13/18 08/13/18 04:15 04:15 WBC 9.7 RBC 4.57 L Hgb 11.9 L Hct 37.2 L MCV 81.4 MCH 26.0 L MCHC 32.0 RDW 15.0 H RDW Differential 43.7 Plt Count 301 MPV 9.6 Immature Gran % (Auto) 0.200 Neut % (Auto) 74.5 H Lymph % (Auto) 15.0 L [place] % (Auto) 8.2 Eos % (Auto) 1.9 Baso % (Auto) 0.2 Absolute Neuts (auto) 7.2 Absolute Lymphs (auto) 1.45 Total Counted Not Reportable Sodium 139 Potassium 4.1 Chloride 104 Carbon Dioxide 25.0 Anion Gap 10 BUN 60 H Creatinine 3.88 H Estim Creat Clear Calc 23.28 Est GFR (MDRD) Af Amer 21 L Est GFR (MDRD) Non-Af 18 L BUN/Creatinine Ratio 15.5 Glucose 182 H Calcium 8.6 - Medical Decision Making With history of fall and back pain will obtain x-ray to evaluate for compression fracture. He was medicated with Zofran and morphine. In light of his multiple medical problems recent admission will obtain basic metabolic panel and CBC as well. Laboratory results are compared to prior and are unchanged. Patient was reassessed at 0430. He reported improvement with medication he received. Plan is to discharge to home with short course of opiate analgesia since patient has stage IV renal failure and NSAIDs are contraindicated. Furthermore, he reports adverse reaction to NSAIDs i.e. elevation in blood pressure greater than 200. ED Disposition - Plan for ED Patient: Disposition: Home or Assisted Living Diagnosis: Contusion of lower back and pelvis, initial encounter, Chronic kidney disease, stage IV (severe), History of type 2 diabetes mellitus, History of hypertension Instructions: ED Contusion Back Prescriptions: Oxycodone HCl/Acetaminophen [Percocet 5/325] 1 tab PO Q6H PRN PRN 3 Days #12 tab PRN Reason: Pain Referrals: Norris Mcqueen MD [Primary Care Provider] - 3-5 Days if not improving
--- NOTE | 2018-08-13 03:40 | RAD_ITS ---
STUDY: X-RAY - LUMBAR SPINE REASON FOR EXAM: Male, 48 years old. Status post fall. Low back pain. TECHNIQUE: 3 view(s) of the lumbar spine were obtained. COMPARISON: None FINDINGS: Normal lumbar lordosis. There is no substantial scoliosis. There is grade 1 spondylolisthesis at the L3-4 level, with associated spondylolysis. Normal vertebral bodies w. There is multilevel spondylosis.. There is multi-level degenerative disc disease with multi-level disc space narrowing. The soft tissue structures are unremarkable. RAD/Lumbar Spine 2 or 3 Views IMPRESSION: Multilevel degenerative changes. Spondylolysis and grade 1 spondylolisthesis at the L3-4 level. No demonstrated fracture. Electronically Signed: Nuno Olguin MD at 4:03 EDT , Service support ,
[2018-08-13] MEDS: morphine 8 MG/ML Syringe IV (04:16)
[2018-08-13] MEDS: Ondansetron 4 MG/2 ML Vial IV (04:17)
[2018-08-13 04:36] LABS: Absolute Lymphocyte Count 1.45 X10^3/ul (0.83-4.51); Absolute Neutrophil Count 7.2 X10^3/uL (2.0-7.7); Basophil# 0.02 X10^3/uL; Basophil% 0.2 % (0-1); Eosinophil# 0.18 X10^3/uL; Eosinophils% 1.9 % (0-5); Hematocrit 37.2 % (40-54); Hemoglobin 11.9 g/dl (13.0-16.5); Lymphocyte # 1.45 X10^3/ul (4.0); Mean Corpuscular Volume 81.4 fL (80-94); Mean Platelet Vol. 9.6 fl (6.2-12.0); Monocyte# 0.79 X10^3/uL; Monocyte% 8.2 % (0-10); Neutrophil # 7.21 X10^3/uL (2.7-7.7); Neutrophil % 74.5 % (47-70); Platelet Count 301 K/mm3 (150-450); RBC Distribution Width SD 43.7 fl (35.1-43.9); Red Blood Count 4.57 M/mm3 (4.6-6.2); White Blood Count 9.7 K/mm3 (4.4-11.0)
[2018-08-13 04:43] LABS: Anion Gap 10 (5-15); BUN 60 mg/dL (7-18); BUN/Creat Ratio 15.5 RATIO (10-20); Calcium,Total 8.6 mg/dL (8.5-10.1); Chloride 104 mmol/L (98-107); Creatinine, Serum 3.88 mg/dL (0.70-1.30); EST Glomerular Filtration Rate 18 mL/min (>60); Est Glom Filt Rate - Afr Amer 21 mL/min (>60); Estimated Creatinine Clearance 23.28 ml/min; Glucose 182 mg/dL (74-106); POSITIVE COUNT NO; POSITIVE DIFFERENTIAL NO; POSITIVE MORPHOLOGY NO; Potassium 4.1 mmol/L (3.5-5.1); Sodium Level 139 mmol/L (136-145)
[2018-08-13 05:23] VITALS: BP 190/90; PULSE 82; O2SAT 98
== END 2018-08-13 05:25 | disposition home or self-care (01) ==
PROVIDERS: Emergency Provider Emergency Medicine; Family Provider Family Medicine; PCP Family Medicine
DX: S30.0XXA Contusion of lower back and pelvis, initial encounter (principal); I13.0 Hypertensive heart and chronic kidney disease with heart failure and stage 1 through stage 4 chronic kidney disease, or unspecified chronic kidney disease; E11.22 Type 2 diabetes mellitus with diabetic chronic kidney disease; N18.4 Chronic kidney disease, stage 4 (severe); I50.30 Unspecified diastolic (congestive) heart failure; I50.20 Unspecified systolic (congestive) heart failure; G47.33 Obstructive sleep apnea (adult) (pediatric); E66.01 Morbid (severe) obesity due to excess calories; D63.1 Anemia in chronic kidney disease; Z79.4 Long term (current) use of insulin; Z79.82 Long term (current) use of aspirin; Z79.899 Other long term (current) drug therapy; W18.30XA Fall on same level, unspecified, initial encounter; Y93.89 Activity, other specified; Y92.89 Other specified places as the place of occurrence of the external cause; Y99.0 Civilian activity done for income or pay
CPT/HCPCS: 72100; 80048; 85025; 96374; 96375; 99285; A4216; J2405

== ENCOUNTER → 2018-11-06 | Outpatient (CLI) | payer BC, SELFPAY ==
--- NOTE | 2018-11-06 10:08 | NEURO ---
NCS and/or EMG Patient Report Ordering Doctor: Hanane Mehta DATE OF SERVICE: 11/06/18 This is a left lower extremity nerve conduction study and EMG performed on this 48-year-old male who has experienced a 6-week history of abnormal sensation in his foot which is difficult to describe as well as decreased sensation in his left anterior lateral thigh. He has a history of diabetes does not know his hemoglobin A1c but reports that 6 months ago his blood sugars were uncontrolled and have now improved. He has occasional back pain. Left lower extremity sensory motor nerve conduction studies performed. The sural sensory response is normal. The common peroneal motor and tibial motor distal latencies are somewhat prolonged with reduction of amplitudes and relatively normal conduction velocities. The tibial and common peroneal F-wave latencies are somewhat prolonged and the tibial H reflex responses bilaterally are reduced. Left lower extremity needle electromyography is performed. Muscles evaluated included the extensor digitorum brevis, abductor hallucis, medial gastrocnemius, anterior tibialis, vastus medialis and vastus lateralis muscles. Distal muscles demonstrated increased motor unit amplitude with early recruitment however these abnormalities resolved more proximally. All muscles demonstrated normal insertional activity with absence of pathologic spontaneous activity. Impression: 1 meralgia paresthetica. 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
== END | disposition home or self-care (01) ==
LOC: PSN 07:55
PROVIDERS: Family Provider Family Medicine; PCP Family Medicine; Referring Provider Family Medicine; Visit Provider Family Medicine
DX: R20.0 Anesthesia of skin (principal); R20.2 Paresthesia of skin; R29.898 Other symptoms and signs involving the musculoskeletal system
CPT/HCPCS: 95886; 95909

== ENCOUNTER 2018-11-21 08:34 | Emergency (ER) | payer BC, SELFPAY ==
[2018-11-21 08:35] VITALS: BP 121/73; PULSE 77; RESP 18; TEMP 36.8; O2SAT 97; BMI 47.2
--- NOTE | 2018-11-21 08:48 | EKG12_ITS ---
Test Reason : HYPERGLYCEMIA Blood Pressure : / mmHG Vent. Rate : 067 BPM Atrial Rate : 067 BPM P-R Int : 144 ms QRS Dur : 104 ms QT Int : 440 ms P-R-T Axes : 029 003 -06 degrees QTc Int : 464 ms Normal sinus rhythm Minimal voltage criteria for LVH, may be normal variant Nonspecific T wave abnormality Prolonged QT Abnormal ECG Confirmed by TOMI WILLETT, JULIO ([id number]), news copy editor MADYSON YOST ([id number]) on 11/25/2018 2:03:29 PM Referred By: JAS Confirmed By:RIRI KRISHNA MD
--- NOTE | 2018-11-21 08:49 | RAD_ITS ---
STUDY: X-RAY CHEST REASON FOR EXAM: Male, 48 years old. Hyperglycemia, tachycardia TECHNIQUE: PA and lateral views of the chest. COMPARISON: 08/08/2018 FINDINGS: The lungs are clear and expanded. There is no demonstrated pleural abnormality. Normal size heart. Normal mediastinum and erick. Normal visualized pulmonary arteries. Normal visualized aortic arch and descending thoracic aorta. Normal visualized thoracic spine. Normal visualized ribs, clavicles, and shoulders. There is no demonstrated abnormality of the visualized soft tissue structures of the upper abdomen. RAD/Chest PA and Lateral IMPRESSION: Normal x-ray examination of the chest. Electronically Signed: Beto Carver MD at 9:36 EDT , Service support ,
--- NOTE | 2018-11-21 08:50 | ED.VIS.GEN ---
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 With regards to the dizziness, he states he was standing there at work, turned his head one way, and suddenly felt like the room was spinning, which made him feel nauseated. He has had bifrontal headaches just like this 1 many times in the past, he gets them off and on, usually Tylenol helps, he avoids ibuprofen because he has chronic renal disease. He did take Tylenol this morning, it is improved but still there. He has had vertigo like he describes as well, but does not get it very often. The last time he had it was last year. He denies any earache, ringing in his ears, discharge recently. No known illness, although he has been more thirsty and urinating more since his blood sugar has been elevated. He has not vomited this morning. No fevers. He did not fall and injure himself or lose consciousness. - Past Medical History (1) Anemia of chronic renal failure, stage 4 (severe) Status: Chronic (2) CHF (congestive heart failure) Status: Chronic (3) Cardiomyopathy due to hypertension Status: Chronic (4) Chronic renal failure, stage 4 (severe) Status: Chronic (5) Diabetes mellitus type 2 with complications Status: Chronic (6) Hypertension Status: Chronic (7) VERÓNICA on CPAP Status: Chronic Past Medical History - Allergies and Home Meds Allergies/Adverse Reactions: Allergies ibuprofen Adverse Reaction (Verified 11/21/18 08:45) Other RAISES BLOOD PRESSURE Primary Care Physician: Norris Mcqueen MD [Primary Care Provider] - 3-5 Days Surgical History: - - NOREEN AVMartina. Smoking Status: Never smoker Alcohol: None Drugs: None - Family History Paternal Family History: Family History (Last Reviewed 10/25/17 @ 13:19 by Hoa Montenegro) Mother Hypertension Family History: Reports: - - Patient notes a maternal and paternal family history of heart disease, hypertension and diabetes. Maternal Family History: Family History (Last Reviewed 10/25/17 @ 13:19 by Hoa Montenegro) Mother Hypertension Family History: Reports: - - Patient notes a maternal and paternal family history of heart disease, hypertension and diabetes. Review of Systems General: Reports: Malaise, - - dizziness. see HPI.. Denies: Chills, Fever, Sweats Eyes: Denies: Visual changes - bilaterally, Diplopia ENT: Denies: Bilateral ear pain, Rhinorrhea, Sore throat Cardiovascular: Denies: Chest pain, Palpitations Respiratory: Denies: Dyspnea, Cough, Dyspnea on exertion Gastrointestinal: Reports: Abdominal pain - left yesterday, gone today, Nausea. Denies: Vomiting, Diarrhea, Melena, Hematochezia Genitourinary: Denies: Dysuria, Hematuria, Frequency Musculoskeletal: Denies: Neck pain, Back pain, Swelling, Extremity Pain Skin: Denies: Rash, Wounds Neurological: Reports: Headache. Denies: Weakness, Numbness Physical Exam Vital Signs/Narrative: Vital Signs Temp Pulse Resp BP Pulse Ox 11/21/18 08:35 98.3 F 77 18 121/73 H 97 Inital Vital Signs reviewed: Yes General: Well nourished, Well developed, No Acute Distress Head: Normocephalic, Atraumatic Eyes: Perrl, EOMI ENT: Moist mucous membranes, No rhinorrhea, TM's clear. Negative for: Sinus tenderness Neck: Supple, Nontender. Negative for: No lymphadenopathy Cardiovascular: Regular rate, Regular rhythm, No murmurs Respiratory: No distress, CTA bilaterally, Chest nontender Abdomen: Soft, Nontender, Nondistended, Normal bowel sounds Back: Nontender, Normal Inspection Extremities: Nontender, No edema. Negative for: Calf Tenderness Skin: Normal color, No rash, No Trauma Neurological: Alert, Oriented x3, Cranial nerves II-XII grossly intact, Normal Strength, Normal Sensation, - - Normal [id number] and abhdah-sg-jjzi bilaterally. Positive [place] to the right only. Negative to the left. Psychological: Normal affect, Normal Mood Diagnostic/Tx/Re-eval Impressions Chest X-Ray 11/21/18 08:49 IMPRESSION: Normal x-ray examination of the chest. Electronically Signed: Beto Carver MD at 9:36 EDT , Service support , 11/21/18 08:49 Chest PA and Lateral [RAD] Stat Laboratory Tests 11/21/18 11/21/18 11/21/18 Range/Units 13:55 12:51 11:34 WBC (4.4-11.0) K/mm3 RBC (4.6-6.2) M/mm3 Hgb (13.0-16.5) g/dL Hct (40-54) % MCV (80-94) fL MCH (27.0-32.0) pg MCHC (32-36) g/dL RDW Std Deviation (35.1-43.9) fl RDW Coeff of Kyle (11.6-14.6) % Plt Count (150-450) K/mm3 MPV (6.2-12.0) fl Immature Gran % (Auto) (0.0-0.9) % Neut % (Auto) (47-70) % Lymph % (Auto) (19-41) % Warren % (Auto) (0-10) % Eos % (Auto) (0-5) % Baso % (Auto) (0-1) % Absolute Neuts (auto) (2.0-7.7) X10^3/uL Absolute Lymphs (auto) (0.83-4.51) X10^3/uL Absolute Nucleated RBC (0-5) 10^3/uL Nucleated RBC % (0-5) % Sodium (136-145) mmol/L Potassium (3.5-5.1) mmol/L Chloride (98-107) mmol/L Carbon Dioxide (21.0-32.0) mmol/L Anion Gap (5-15) BUN (7-18) mg/dL Creatinine (0.70-1.30) mg/dL Estim Creat Clear Calc ml/min Est GFR (MDRD) Af Amer (>60) mL/min Est GFR (MDRD) Non-Af (>60) mL/min BUN/Creatinine Ratio (10-20) RATIO Glucose (74-106) mg/dL Calcium (8.5-10.1) mg/dL Troponin I (<0.045) ng/mL Urine Color (Yellow) Urine Clarity (Clear) Urine pH (5.0 - 8.0) Ur Specific [place] (1.002-1.030) Urine Protein (Negative) mg/dl Urine Glucose (UA) (Normal) mg/dl Urine Ketones (Negative) mg/dl Urine Occult Blood (Negative) /ul Urine Nitrite (Negative) Urine Bilirubin (Negative) mg/dL Urine Urobilinogen (Normal) mg/dl Ur Leukocyte Esterase (Negative) /ul Urine RBC (0-5) /hpf Urine WBC (0-5) /hpf Ur Squamous Epith Cells (0-5) /hpf Urine Bacteria (None Seen) /hpf Urine Mucus (<or=2+) /hpf POC Glucose 382 H 419 H 431 H (70-110) mg/dL 11/21/18 11/21/18 11/21/18 Range/Units 10:05 09:49 08:41 WBC (4.4-11.0) K/mm3 RBC (4.6-6.2) M/mm3 Hgb (13.0-16.5) g/dL Hct (40-54) % MCV (80-94) fL MCH (27.0-32.0) pg MCHC (32-36) g/dL RDW Std Deviation (35.1-43.9) fl RDW Coeff of Kyle (11.6-14.6) % Plt Count (150-450) K/mm3 MPV (6.2-12.0) fl Immature Gran % (Auto) (0.0-0.9) % Neut % (Auto) (47-70) % Lymph % (Auto) (19-41) % Warren % (Auto) (0-10) % Eos % (Auto) (0-5) % Baso % (Auto) (0-1) % Absolute Neuts (auto) (2.0-7.7) X10^3/uL Absolute Lymphs (auto) (0.83-4.51) X10^3/uL Absolute Nucleated RBC (0-5) 10^3/uL Nucleated RBC % (0-5) % Sodium (136-145) mmol/L Potassium (3.5-5.1) mmol/L Chloride (98-107) mmol/L Carbon Dioxide (21.0-32.0) mmol/L Anion Gap (5-15) BUN (7-18) mg/dL Creatinine (0.70-1.30) mg/dL Estim Creat Clear Calc ml/min Est GFR (MDRD) Af Amer (>60) mL/min Est GFR (MDRD) Non-Af (>60) mL/min BUN/Creatinine Ratio (10-20) RATIO Glucose (74-106) mg/dL Calcium (8.5-10.1) mg/dL Troponin I (<0.045) ng/mL Urine Color Yellow (Yellow) Urine Clarity Clear (Clear) Urine pH 6.0 (5.0 - 8.0) Ur Specific [place] 1.010 (1.002-1.030) Urine Protein 100 H (Negative) mg/dl Urine Glucose (UA) 1000 H (Normal) mg/dl Urine Ketones Negative (Negative) mg/dl Urine Occult Blood 25 H (Negative) /ul Urine Nitrite Negative (Negative) Urine Bilirubin Negative (Negative) mg/dL Urine Urobilinogen Normal (Normal) mg/dl Ur Leukocyte Esterase Negative (Negative) /ul Urine RBC 0 SEEN (0-5) /hpf Urine WBC 0 SEEN (0-5) /hpf Ur Squamous Epith Cells 0-5 SEEN (0-5) /hpf Urine Bacteria RARE (None Seen) /hpf Urine Mucus 0 SEEN (<or=2+) /hpf POC Glucose 460 H* > 500 H* (70-110) mg/dL 11/21/18 11/21/18 Range/Units 08:20 08:20 WBC 5.7 (4.4-11.0) K/mm3 RBC 4.65 (4.6-6.2) M/mm3 Hgb 12.3 L (13.0-16.5) g/dL Hct 38.6 L (40-54) % MCV 83.0 (80-94) fL MCH 26.5 L (27.0-32.0) pg MCHC 31.9 L (32-36) g/dL RDW Std Deviation 41.0 (35.1-43.9) fl RDW Coeff of Kyle 13.7 (11.6-14.6) % Plt Count 195 (150-450) K/mm3 MPV 10.6 (6.2-12.0) fl Immature Gran % (Auto) 0.200 (0.0-0.9) % Neut % (Auto) 67.1 (47-70) % Lymph % (Auto) 17.1 L (19-41) % Warren % (Auto) 11.1 H (0-10) % Eos % (Auto) 4.1 (0-5) % Baso % (Auto) 0.4 (0-1) % Absolute Neuts (auto) 3.8 (2.0-7.7) X10^3/uL Absolute Lymphs (auto) 0.97 (0.83-4.51) X10^3/uL Absolute Nucleated RBC 0.00 (0-5) 10^3/uL Nucleated RBC % 0 (0-5) % Sodium 132 L (136-145) mmol/L Potassium 4.3 (3.5-5.1) mmol/L Chloride 99 (98-107) mmol/L Carbon Dioxide 25.0 (21.0-32.0) mmol/L Anion Gap 8 (5-15) BUN 67 H (7-18) mg/dL Creatinine 5.02 H (0.70-1.30) mg/dL Estim Creat Clear Calc 18.00 ml/min Est GFR (MDRD) Af Amer 16 L (>60) mL/min Est GFR (MDRD) Non-Af 13 L (>60) mL/min BUN/Creatinine Ratio 13.3 (10-20) RATIO Glucose 535 H* (74-106) mg/dL Calcium 8.8 (8.5-10.1) mg/dL Troponin I < 0.015 (<0.045) ng/mL Urine Color (Yellow) Urine Clarity (Clear) Urine pH (5.0 - 8.0) Ur Specific [place] (1.002-1.030) Urine Protein (Negative) mg/dl Urine Glucose (UA) (Normal) mg/dl Urine Ketones (Negative) mg/dl Urine Occult Blood (Negative) /ul Urine Nitrite (Negative) Urine Bilirubin (Negative) mg/dL Urine Urobilinogen (Normal) mg/dl Ur Leukocyte Esterase (Negative) /ul Urine RBC (0-5) /hpf Urine WBC (0-5) /hpf Ur Squamous Epith Cells (0-5) /hpf Urine Bacteria (None Seen) /hpf Urine Mucus (<or=2+) /hpf POC Glucose (70-110) mg/dL - Rhythm Strip Rhythm Strip: Sinus Rhythm Rate: 67 Ectopy: None - EKG Initial EKG Interpretation: Sinus Rhythm, No Acute Injury Pattern, Inverted T-Waves - inferiorly, Non-Specific ST Changes - high lateral Prior: Unchanged - Medical Decision Making Patient was given a liter of fluid, his blood sugar came down, he had also taken 20 units of 1 of his insulins this morning. His blood sugar leveled out around 400. Therefore he was given a dose of lispro 12 units, his blood sugar started coming down more, into the 300s. He was tired of waiting and really wanted to go, saying that he can manage it at home however when we went over his medication list more carefully, he is on no short-acting insulins. He is wondering what he should do at home. He takes no oral medications because of his kidney failure. His work-up shows nothing other than hyperglycemia, acutely. There is no sign of any acute infection in his lungs or urine. He is feeling better and comfortable with going home at this time. In discussing with Dr. Gutierrez and an office nurse practitioner who knows him,, covering for Dr. Mcqueen, he is currently on Tresiba 28 units qAM and Victoza 3mg qhs. These were per his insurance law specialist. They recommend that he take an additional dose of Tresiba 4 units this evening, then they will see him tomorrow, they made an appointment for him at 9:20 AM which works for the patient. They will manage his insulins and diabetes further as an outpatient at that time. ED Disposition - Plan for ED Patient: Disposition: Home or Assisted Living Diagnosis: Hyperglycemia due to type 2 diabetes mellitus, Mild dehydration, Chronic renal failure Instructions: ED Diabetic Hyperglycemia Referrals: Norris Mcqueen MD [Primary Care Provider] - 11/22/18 9:20 am Additional Instructions: Take an additional 4 units of your Tresiba this evening, followed by your usual a.m. dose in the morning, before your appointment.
[2018-11-21] MEDS: Ondansetron 4 MG/2 ML Vial IV (08:59)
[2018-11-21] MEDS: Meclizine HCl 25 MG Tablet PO (08:59)
[2018-11-21] MEDS: 0.9% Normal Saline 1,000 ML 1000 ML IV (08:59)
[2018-11-21 09:00] LABS: Absolute Lymphocyte Count 0.97 X10^3/uL (0.83-4.51); Absolute Neutrophil Count 3.8 X10^3/uL (2.0-7.7); Basophil# 0.02 X10^3/uL; Basophil% 0.4 % (0-1); Eosinophil# 0.23 X10^3/uL; Eosinophils% 4.1 % (0-5); Hematocrit 38.6 % (40-54); Hemoglobin 12.3 g/dL (13.0-16.5); Lymphocyte # 0.97 X10^3/ul (4.0); Lymphocyte % 17.1 % (19-41); Mean Corp Hgb Conc 31.9 g/dL (32-36); Mean Corpuscular Hgb 26.5 pg (27.0-32.0); Mean Platelet Vol. 10.6 fl (6.2-12.0); Monocyte# 0.63 X10^3/uL; Monocyte% 11.1 % (0-10); NRBC Flagged by Analyzer 0 % (0-5); Neutrophil # 3.81 X10^3/uL (2.7-7.7); Neutrophil % 67.1 % (47-70); Platelet Count 195 K/mm3 (150-450); RBC Distribution Width CV 13.7 % (11.6-14.6); Red Blood Count 4.65 M/mm3 (4.6-6.2); White Blood Count 5.7 K/mm3 (4.4-11.0)
[2018-11-21 09:05] LABS: Bedside Glucose > 500 mg/dL (70-110)
--- NOTE | 2018-11-21 09:15 | ED.RN ---
glucose [address] lab[address] dr benson aware
[2018-11-21 09:16] LABS: Anion Gap 8 (5-15); BUN 67 mg/dL (7-18); BUN/Creat Ratio 13.3 RATIO (10-20); Calcium,Total 8.8 mg/dL (8.5-10.1); Chloride 99 mmol/L (98-107); Creatinine, Serum 5.02 mg/dL (0.70-1.30); EST Glomerular Filtration Rate 13 mL/min (>60); Est Glom Filt Rate - Afr Amer 16 mL/min (>60); Glucose 535 mg/dL (74-106); Potassium 4.3 mmol/L (3.5-5.1); Sodium Level 132 mmol/L (136-145)
[2018-11-21 09:55] LABS: Bedside Glucose 460 mg/dL (70-110)
[2018-11-21 10:10] LABS: Mucous, Urine 0 SEEN /hpf (<or=2+); Red Blood Cells-Urine 0 SEEN /hpf (0-5); White Blood Cells 0 SEEN /hpf (0-5)
[2018-11-21 10:19] LABS: Color, Urine Yellow (Yellow); Glucose, Dipstick 1000 mg/dl (Normal); Ketone-Dipstick Negative (Negative); Leukocyte Esterase-Dipstick Negative /ul (Negative); Nitrite-Dipstick Negative (Negative); Occult Blood-Urine 25 /ul (Negative); Protein-Dipstick 100 mg/dl (Negative); Urine Bilirubin Dipstick Negative (Negative); Urine Clarity Clear (Clear); Urine Urobilinogen Normal (Normal)
[2018-11-21 10:32] LABS: Bacteria RARE /hpf (None Seen); Squamous Epithelial Cells - UA 0-5 SEEN /hpf (0-5)
[2018-11-21 11:35] VITALS: BP 143/90; PULSE 62; RESP 18; O2SAT 96
[2018-11-21 11:40] LABS: Bedside Glucose 431 mg/dL (70-110)
[2018-11-21 12:56] LABS: Bedside Glucose 419 mg/dL (70-110)
[2018-11-21] MEDS: Insulin Lispro 100 UNIT/ML INSULN.PEN 14 UNIT SC (13:07)
[2018-11-21 13:09] VITALS: BP 120/71; PULSE 70; RESP 18; O2SAT 98
[2018-11-21 14:00] LABS: Bedside Glucose 382 mg/dL (70-110)
[2018-11-21 15:18] VITALS: BP 150/95; PULSE 68; RESP 18; O2SAT 97
[2018-11-21 15:19] VITALS: BP 150/95; PULSE 68; RESP 18; O2SAT 97
== END 2018-11-21 15:22 | disposition home or self-care (01) ==
PROVIDERS: Emergency Provider Emergency Medicine; Family Provider Family Medicine; PCP Family Medicine
DX: E11.65 Type 2 diabetes mellitus with hyperglycemia (principal); E86.0 Dehydration; E11.22 Type 2 diabetes mellitus with diabetic chronic kidney disease; I13.0 Hypertensive heart and chronic kidney disease with heart failure and stage 1 through stage 4 chronic kidney disease, or unspecified chronic kidney disease; I43 Cardiomyopathy in diseases classified elsewhere; N18.4 Chronic kidney disease, stage 4 (severe); I50.9 Heart failure, unspecified; D63.1 Anemia in chronic kidney disease; G47.33 Obstructive sleep apnea (adult) (pediatric); Z79.4 Long term (current) use of insulin; Z79.82 Long term (current) use of aspirin; Z79.899 Other long term (current) drug therapy
CPT/HCPCS: 71046; 80048; 81001; 82962; 84484; 85025; 93005; 96361; 96372; 96374; 99285; A4216; J2405

== ENCOUNTER → 2019-01-21 10:46 | Outpatient (CLI) | payer BC, SELFPAY ==
[2019-01-21 10:30] VITALS: BMI 47.2
--- NOTE | 2019-01-21 10:47 | RAD_ITS ---
STUDY: X-RAY - CERVICAL SPINE REASON FOR EXAM: Male, 48 years old. Neck pain TECHNIQUE: 4 view(s) of the cervical spine were obtained including flexion and extension. COMPARISON: None FINDINGS: Normal anterior atlantoaxial articulation. Normal odontoid process. Decreased cervical lordosis. No evidence for acute fracture or subluxation. There is narrowing of C5-6 disc space with endplate spurring. There is limited range of motion on extension without evidence for gross instability upon flexion or extension.. RAD/Cerv Spine 4 or 5 Views IMPRESSION: Mild spondylosis. No evidence for acute fracture or other significant bony pathology Electronically Signed: Norris Olson MD at 22:56 EDT , Service support ,
--- NOTE | 2019-01-21 10:47 | RAD_ITS ---
STUDY: X-RAY - LUMBAR SPINE REASON FOR EXAM: Male, 48 years old. Low back pain TECHNIQUE: 4 view(s) of the lumbar spine were obtained including flexion and extension. COMPARISON: None FINDINGS: Normal lumbar lordosis. There is no substantial scoliosis. There is grade 1 spondylolisthesis at L3-4 and spondylolysis. Mild narrowing of the L3-4 disc space and endplate spurring. No evidence for acute fracture or subluxation.. Films obtained in flexion-extension demonstrate limited range of motion in flexion. There is no gross instability upon flexion or extension The soft tissue structures are unremarkable. RAD/L/S Spine Min 4 Views IMPRESSION: Mild spondylosis at L3-4 with spondylolisthesis No evidence for acute fracture or other significant bony pathology. Electronically Signed: Norris Olson MD at 22:57 EDT , Service support ,
== END ==
PROVIDERS: Family Provider Family Medicine; PCP Family Medicine; Referring Provider Orthopaedic Surgery; Visit Provider Orthopaedic Surgery
DX: M54.9 Dorsalgia, unspecified (principal)
CPT/HCPCS: 72050; 72110

== ENCOUNTER → 2019-02-11 17:43 | Outpatient (CLI) | payer BC, SELFPAY ==
[2019-01-21 10:30] VITALS: BMI 47.2
--- NOTE | 2019-02-11 17:48 | MRI_ITS ---
STUDY: MRI CERVICAL SPINE WITHOUT CONTRAST REASON FOR EXAM: Male, 48 years old. Neck pain. TECHNIQUE: Standardized fat and water weighted pulse sequences were obtained in the sagittal and axial planes. COMPARISON: Cervical spine radiographs 01/21/2019. FINDINGS: No fracture or concerning signal changes in the vertebrae. Multilevel mild disc desiccation. No endplate signal changes. Alignment is anatomic, cervical spine mildly flexed. No acute or concerning findings in the paraspinal soft tissues. Normal signal of the cervical spinal cord. At C2-3 there is no significant narrowing. At C3-4, small broad-based disc bulge causes mild narrowing of the spinal canal and bilateral foramina. At C4-5, left paracentral disc protrusion mildly narrows the spinal canal, abutting the right anterior aspect of the spinal cord. Uncovertebral joint osteophytes cause mild bilateral foraminal narrowing. At C5-6, large broad-based disc extrusion with both superior and inferior mild progression causes moderate to severe spinal canal narrowing, flattening the spinal cord posteriorly. The cord maintains normal signal. Disc extends into and moderately narrows the right and mildly narrows the left foramina. At C6-7, small broad-based disc bulge causes only mild narrowing of the spinal canal and foramina. At C7-T1, there is no narrowing. MRI/Spine Cervical (Routine) IMPRESSION: At C5-6, large broad-based disc extrusion causes moderate to severe spinal canal narrowing, with mass effect upon the spinal cord which is flattened posteriorly but maintains normal signal. Electronically Signed: Roc Booth, at 5:08 EDT Tel , Service support ,
== END ==
PROVIDERS: Family Provider Family Medicine; PCP Family Medicine; Referring Provider Orthopaedic Surgery; Visit Provider Orthopaedic Surgery
DX: R29.898 Other symptoms and signs involving the musculoskeletal system (principal)
CPT/HCPCS: 72141

== ENCOUNTER 2019-07-17 09:00 | Outpatient (RCR) | payer BC, MEDICAID, SELFPAY ==
[2019-01-21 10:30] VITALS: BMI 47.2
--- NOTE | 2019-01-28 11:10 | HP.PTEVAL_ITS ---
Patient's Visit Information LISA MASTERSON is a 48 year old M referred to Physical Therapy by Iris Moore MD with a diagnosis of LBP. Date of Evaluation: 01/28/19 Physical Therapist: Clyde Castro, PT, ATC - Visit Plan Frequency: 2x /Week Duration: 4-8 weeks Plan: Aquatic therapy consisting of core strengthening, L/S extension, LE strengthening, postural education, and HEP - Subjective Findings: Pt. pain started in July of 2018 after standing up after vomitting due to the flu. Pt. has had CT scans/MRIs in the past. Pt. pain at rest is 5- 7/10. Pt pain at worst is 9/10. Pt. stated he cannot stand or sit for a long time. Pt reported his legs will go numb after sitting/standing for long periods of time. 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 Pt is not working currently. Pt is on FMLA. Pt. worked at [employer]. Pt reports LBP does wake him up at night. Pt. stated it takes more time to get out of bed due to LBP. Pt. has fallen 2 times in the past 6 months. Pt. has 6-7 stairs to get into home. Pt. steps sideways to go down steps. Pt. lives with and son at home. Pt. reportes always having numbness and tingling. - Pain LBP Pain Intensity (Out of 10): 5 Pain Intensity Range: 9 - Objective Neuro: B LE sensation is WNL to light touch. B patellar reflex= 2/3. MMT: B hip and knee flexion 4-/5. All other measurements 5/5 throughout. L/S ROM: WNL. Posture: Pt sits and stands with decreased l/s lordosis. Repeated movments: REIL 10x2 had NE. Flexion not tested secondary to pt reporting that bending forwards makes his legs go numb. - Goals Goal 1:: Decrease LBP x 50% to aid with sleep Goal Time Frame: 6-8 Weeks Goal 2:: Increase B LE strength to 5/5 throughout to aid with RTW Goal Time Frame: 6-8 Weeks Goal 3:: Decrease frequency and intensity of LE radiculopathy x 25% to aid with increasing tolerance for ambulation Goal Time Frame: 6-8 Weeks Goal 4:: I with HEP Goal Time Frame: 6-8 Weeks - Rehabilitation Potential Physical Therapy Diagnosis: Pt has LBP, LE radiculopathy, and difficulty with sleep secondary to deg changes in LB Rehabilitation Potential: Good - Anticipated Interventions Patient/Client Instruction: Educate patient on: Condition, Plan of Care For the Purpose of:: To improve self management Therapeutic Exercise to Include: Strength training, Endurance training, Body mechanics, Postural training, In an aquatic setting, Dynamic Lumbar Stabilization For the Purpose of:: To decrease pain, To improve muscle performance and motor function Thank you for the opportunity to evaluate your patient. For Medicare and Medicare HMO plans, please review the plan of care and approve it. It will need to be FAXED BACK to us at [phone] for Medicare purposes. For Medicare only, by signing this I certify the plan of care. Please let me know if there are questions or concerns regarding this plan of care. Physician Signature: Date:
--- NOTE | 2019-03-04 10:51 | HP.PTREVAL_ITS ---
Iris Moore MD, It has been my pleasure to treat LISA MASTERSON over the last 9 visits for LBP. Please see the progress note below for an update on the physical therapy plan of care! Subjective: Pt reports he feels ready to transition to land therapy at this time. Objective/Function: LBP is 3/10. B LE MMT now 4/5 throughout. Pt reports no LE radiculopathy at this time. Pt is progressing well toward Rx goals Plan Plan: Transition to land therapy at this time and incoorperate work type of activity. Goals Goal 1:: Decrease LBP x 50% to aid with sleep Goal Time Frame: 6-8 Weeks Goal Progress: Progressing Goal 2:: Increase B LE strength to 5/5 throughout to aid with RTW Goal Time Frame: 6-8 Weeks Goal Progress: Progressing Goal 3:: Decrease frequency and intensity of LE radiculopathy x 25% to aid with increasing tolerance for ambulation Goal Time Frame: 6-8 Weeks Goal Progress: Progressing Goal 4:: I with HEP Goal Time Frame: 6-8 Weeks Goal Progress: Progressing Anticipated Interventions Patient/Client Instruction: Educate patient on: Condition, Plan of Care For the Purpose of:: To improve self management Therapeutic Exercise to Include: Strength training, Endurance training, Body mechanics, Postural training, In an aquatic setting, Dynamic Lumbar Stabil ization For the Purpose of:: To decrease pain, To improve muscle performance and motor function Please do not hesitate to contact me at [phone] by phone or if you have questions or concerns regarding this new plan of care! Sincerely, Clyde Castro, PT, ATC
--- NOTE | 2019-04-03 10:59 | HP.PTREVAL_ITS ---
Iris Moore MD, It has been my pleasure to treat LISA MASTERSON over the last 16 visits for LBP. Please see the progress note below for an update on the physical therapy plan of care! Subjective: Pt reports Some days he is pain free, others he is really sore. No consistent reason why Objective/Function: Pt still has sleep difficulty secondary to LBP. B LE strength is 5/5 throughout. Pt believes his LE radiculopathy has improved 25%. Pt is I with HEP. PT is progressing well towards Rx goals and would benefit fro m further strengthening in preparation for RTW Plan Plan: Cont with POC 2 times per week for 3 more weeks. Goals Goal 1:: Decrease LBP x 50% to aid with sleep Goal Time Frame: 6-8 Weeks Goal Progress: Progressing Goal 2:: Increase B LE strength to 5/5 throughout to aid with RTW Goal Time Frame: 6-8 Weeks Goal Progress: Goal Met Goal 3:: Decrease frequency and intensity of LE radiculopathy x 25% to aid with increasing tolerance for ambulation Goal Time Frame: 6-8 Weeks Goal Progress: Goal Met Goal 4:: I with HEP Goal Time Frame: 6-8 Weeks Goal Progress: Goal Met Anticipated Interventions Patient/Client Instruction: Educate patient on: Condition, Plan of Care For the Purpose of:: To improve self management Therapeutic Exercise to Include: Strength training, Endurance training, Body mechanics, Postural training, In an aquatic setting, Dynamic Lumbar Stabilization For the Purpose of:: To decrease pain, To improve muscle performance and motor function Please do not hesitate to contact me at [phone] by phone or if you have questions or concerns regarding this new plan of care! Sincerely, Clyde Castro, PT, ATC
--- NOTE | 2019-05-01 11:01 | HP.PTREVAL ---
Iris Moore MD, It has been my pleasure to treat LISA MASTERSON over the last 20 visits for LBP. Please see the progress note below for an update on the physical therapy plan of care! Subjective: Pt reports he feels better, but is still unable to bend forward to lift an item off the ground. Pt reports he feels like he is walking better. Objective/Function: LBP is 5/10 currently, 9/10 with forward lifting. B LE strength is 5/5 throughout. Pt reports B LE radiculopathy is better, intermittent in nature. Pt would benefit from further strengthening to aid with decreasing pain Plan Plan: Cont with POC 2 times per week for 2 more weeks. Goals Goal 1:: Decrease LBP x 50% to aid with sleep Goal Time Frame: 6-8 Weeks Goal Progress: Progressing Goal 2:: Increase B LE strength to 5/5 throughout to aid with RTW Goal Time Frame: 6-8 Weeks Goal Progress: Goal Met Goal 3:: Decrease frequency and intensity of LE radiculopathy x 25% to aid with increasing tolerance for ambulation Goal Time Frame: 6-8 Weeks Goal Progress: Goal Met Goal 4:: I with HEP Goal Time Frame: 6-8 Weeks Goal Progress: Goal Met Anticipated Interventions Patient/Client Instruction: Educate patient on: Condition, Plan of Care For the Purpose of:: To improve self management Therapeutic Exercise to Include: Strength training, Endurance training, Body mechanics, Postural training, In an aquatic setting, Dynamic Lumbar Stabilization For the Purpose of:: To decrease pain, To improve muscle performance and motor function Please do not hesitate to contact me at [phone] by phone or if you have questions or concerns regarding this new plan of care! Sincerely, Clyde Castro, PT, ATC
--- NOTE | 2019-05-15 11:03 | HP.PTREVAL ---
Iris Moore MD, It has been my pleasure to treat LISA MASTERSON over the last 23 visits for LBP. Please see the progress note below for an update on the physical therapy plan of care! Subjective: Pt reports his LBP is getting under control at this time. He notes his greatest concern at this time is his balance. He has felt very unsteady lately Objective/Function: B LE strength is 5/5 throughout. No sleep difficulty at this time secondary to LBP. LE radiculopathy is still at a minimum. FGA= 20/30 Plan Plan: Cont 2 times per week for 4 weeks to focus strickly on balance activity Goals Goal 1:: Decrease LBP x 50% to aid with sleep Goal Time Frame: 6-8 Weeks Goal Progress: Goal Met Goal 2:: Increase B LE strength to 5/5 throughout to aid with RTW Goal Time Frame: 6-8 Weeks Goal Progress: Goal Met Goal 3:: Decrease frequency and intensity of LE radiculopathy x 25% to aid with increasing tolerance for ambulation Goal Time Frame: 6-8 Weeks Goal Progress: Goal Met Goal 4:: I with HEP Goal Time Frame: 6-8 Weeks Goal Progress: Goal Met Goal 5:: Increase FGA score x 5-10 points to aid with preventing future falls Goal Time Frame: 2-4 Weeks Anticipated Interventions Patient/Client Instruction: Educate patient on: Condition, Plan of Care For the Purpose of:: To improve self management Therapeutic Exercise to Include: Strength training, Endurance training, Body mechanics, Postural training, In an aquatic setting, Dynamic Lumbar Stabilization For the Purpose of:: To decrease pain, To improve muscle performance and motor function Please do not hesitate to contact me at [phone] by phone or if you have questions or concerns regarding this new plan of care! Sincerely, Clyde Castro, PT, ATC
--- NOTE | 2019-06-23 09:32 | HP.PTREVAL ---
Iris Moore MD, It has been my pleasure to treat LISA MASTERSON over the last 29 visits for LBP. Please see the progress note below for an update on the physical therapy plan of care! Subjective: Pt reports he went for preop work and AC was too high. Objective/Function: FGA score 24/30. Pt is showing good improvements with balance. Plan Plan: Cont to focus on balance activity to prevent future falls Goals Goal 1:: Decrease LBP x 50% to aid with sleep Goal Time Frame: 6-8 Weeks Goal Progress: Goal Met Goal 2:: Increase B LE strength to 5/5 throughout to aid with RTW Goal Time Frame: 6-8 Weeks Goal Progress: Goal Met Goal 3:: Decrease frequency and intensity of LE radiculopathy x 25% to aid with increasing tolerance for ambulation Goal Time Frame: 6-8 Weeks Goal Progress: Goal Met Goal 4:: I with HEP Goal Time Frame: 6-8 Weeks Goal Progress: Goal Met Goal 5:: Increase FGA score x 5-10 points to aid with preventing future falls Goal Time Frame: 2-4 Weeks Anticipated Interventions Patient/Client Instruction: Educate patient on: Condition, Plan of Care For the Purpose of:: To improve self management Therapeutic Exercise to Include: Strength training, Endurance training, Body mechanics, Postural training, In an aquatic setting, Dynamic Lumbar Stabilization For the Purpose of:: To decrease pain, To improve muscle performance and motor function Please do not hesitate to contact me at [phone] by phone or if you have questions or concerns regarding this new plan of care! Sincerely, Clyde Castro, PT, ATC
--- NOTE | 2019-08-14 10:42 | HP.PT.NRP ---
LISA MASTERSON was seen in my office for initial evaluation on 01/28/19. The following Plan of Care was established for this patient: Initial Frequency: 2x /Week Initial Duration: 4-8 weeks Patient/Client Instruction: Educate patient on: Condition, Plan of Care For the Purpose of:: To improve self management Therapeutic Exercise to Include: Strength training, Endurance training, Body mechanics, Postural training, In an aquatic setting, Dynamic Lumbar Stabilization For the Purpose of:: To decrease pain, To improve muscle performance and motor function This patient was last seen in our office . Pertinent comments regarding their Physical therapy will appear below: Pt was treated for 33 PT visits for LBP and unsteady gait through the date of 07/17/2019. Pt has not returned through todays date and is discontinued at this time. At this point I will be discontinuing this patient from physical therapy. I would be happy to see this patient again in the future if found appropriate by the physician. Thank you! Clyde Castro, PT, ATC
== END 2019-07-17 19:00 | disposition home or self-care (01) ==
LOC: PT 09:00
PROVIDERS: Family Provider Family Medicine; PCP Family Medicine; Referring Provider Orthopaedic Surgery; Visit Provider Orthopaedic Surgery
DX: M54.5 Low back pain (principal); R26.9 Unspecified abnormalities of gait and mobility
CPT/HCPCS: 97110; 97113; 97161; 97164; 97530

== ENCOUNTER → 2019-12-18 13:21 | Outpatient (CLI) | payer BC, MEDICAID, SELFPAY ==
[2019-08-14 09:55] VITALS: BMI 44.9
--- NOTE | 2019-12-18 13:32 | MRI_ITS ---
STUDY: MRI CERVICAL SPINE WITHOUT CONTRAST REASON FOR EXAM: Male, 49 years old. cervical myelopathy, difficulty walking and amp; using hands, numbness/tingling TECHNIQUE: Standardized fat and water weighted pulse sequences were obtained in the sagittal and axial planes. COMPARISON: 02/11/2019 FINDINGS: Normal foramen magnum and brainstem-cervical cord junction. Normal craniovertebral junction. Normal anterior atlantoaxial articulation. Normal odontoid process. There is straightening of the normal cervical lordosis. Normal vertebral bodies and posterior osseous elements. C2-3: Normal endplates. Normal disc height, signal and morphology. Normal central canal and intervertebral neural foramina. C3-4: Normal endplates. Normal disc height, signal and morphology. Normal central canal and intervertebral neural foramina. C4-5: No change in the mild bilobed disc osteophyte complex which produces mild spinal stenosis but no neural foraminal stenosis. C5-6: No change in the moderate bilobed disc osteophyte complex asymmetric to the right which produces severe spinal stenosis with effacement of the spinal cord. C6-7: No change in the mild broad disc protrusion which produces mild spinal stenosis but no neural foraminal stenosis. C7-T1: Normal endplates. Normal disc height, signal and morphology. Normal central canal and intervertebral neural foramina. Normal cervical cord. Normal visualized soft tissue structures. MRI/Spine Cervical (Routine) IMPRESSION: No change from 02/11/2019 with cord compression at C5/C6. Electronically Signed: Bashir Hernandez MD at 14:02 EDT Tel , Service support ,
== END ==
PROVIDERS: PCP Family Medicine
DX: G95.9 Disease of spinal cord, unspecified (principal)
CPT/HCPCS: 72141

== ENCOUNTER 2021-07-05 08:12 | Emergency (ER) | payer MEDICAID, SELFPAY ==
[2021-07-05 08:13] VITALS: BP 181/112; PULSE 95; RESP 18; TEMP 36.3; O2SAT 98; BMI 41.1
--- NOTE | 2021-07-05 08:22 | RAD_ITS ---
STUDY: X-RAY - RIGHT ANKLE REASON FOR EXAM: Right ankle pain for 3-4 days, no specific injury. TECHNIQUE: 3 view(s) of the ankle. COMPARISON: None. FINDINGS: Normal visualized distal tibia and fibula. Normal medial and lateral malleoli. Normal tibiotalar articulation and ankle mortise. There is a small plantar calcaneal enthesophyte. The visualized subtalar, talonavicular, calcaneocuboid and tarsal articulations are normal. There is soft tissue swelling. RAD/Ankle min 3 Views IMPRESSION: Soft tissue swelling. Small plantar calcaneal enthesophyte. Electronically Signed: Barney Corona MD at 9:00 EST ,
--- NOTE | 2021-07-05 09:05 | EDS_ITS ---
HPI History of Present Illness Chief Complaint: Lower Extremity Injury Narrative Narrative: Patient presents with right ankle pain and swelling for the last few days. He states he awoke with pain and swelling in his right lower extremity around his ankle. He denies any chest pain or shortness of breath. He is a dialysis patient on Sunday, Sunday, and Sunday and last received his full dialysis yesterday. No fevers or chills. No noted trauma. [facility] Medical History Acute renal failure on dialysis Anemia of chronic renal failure, stage 4 (severe) Chronic combined systolic and diastolic CHF (congestive heart failure) Chronic renal failure, stage 4 (severe) Demand ischemia Elevated troponin Essential (primary) hypertension History of non-ST elevation myocardial infarction (NSTEMI) (04/2017) Hypertensive urgency Morbid obesity Non-ischemic cardiomyopathy VERÓNICA on CPAP Problem with dialysis access Syncope (07/2018) Systolic and diastolic CHF, acute Home Medications amlodipine 10 mg PO DAILY 02/12/13 [History Last Taken 08/08/18] carvedilol 25 mg tablet 25 mg PO BID tab 08/02/17 [History Last Taken 08/08/18] aspirin 81 mg PO DAILY 08/10/17 [History Last Taken 08/08/18] omeprazole 20 mg PO DAILY 08/08/18 [History Last Taken 08/08/18] fluticasone propionate 1 spray NASAL BID #0 nasal.sry 08/09/18 [Rx Last Taken Unknown] chlorthalidone 50 mg tablet 50 mg PO DAILY #90 tab 01/21/19 [History Last Taken Unknown] blood-glucose meter #1 ea 12/22/19 [Rx Last Taken Unknown] insulin degludec 200 unit/mL (3 mL) subcutaneous pen 40 unit SC DAILY #18 ml 12/22/19 [Rx Last Taken Unknown] lancets 28 gauge #100 ea 12/22/19 [Rx Last Taken Unknown] pen needle, diabetic 32 gauge x #400 ea 12/22/19 [Rx Last Taken Unknown] insulin aspart U-100 100 unit/mL (3 mL) subcutaneous pen 15 unit SC TID #60 ml 12/29/19 [Rx Last Taken Unknown] insulin syringe-needle U-100 0.5 mL 31 gauge x 16 #100 ea 12/29/19 [Rx Last Taken Unknown] amoxicillin-pot clavulanate 1 tab PO BID #20 tab 07/05/21 [Rx Last Taken Unknown] Allergy/AdvReac Type Severity Reaction Status Date / Time ibuprofen AdvReac Other Verified 07/05/21 08:12 Family History Mother Hypertension Surgical History Presence of surgically created arteriovenous shunt for hemodialysis (07/2017) Social History Smoking Status: Never smoker alcohol intake: never substance use type: does not use ROS ROS ED ROS Narrative Constitutional: No fever, no chills. HEENT: No sore throat. No neck pain. No loss of vision. No rhinorrhea. Cardiovascular: No chest pain. No palpitations. No pedal edema. Respiratory: No cough, no shortness of breath. Abdominal: No abdominal pain. No nausea. No vomiting. Genitourinary: No dysuria. No hematuria. Musculoskeletal: No myalgias. Right ankle pain and swelling. Neurologic: No headaches. No dizziness. No lightheadedness. Skin: No rash. No change in color. Psychiatric: No depression. No anxiety. EXAM Physical Exam Narrative Exam Narrative: Afebrile. Vital signs noted. HEENT: Normocephalic. Atraumatic. PERRL, EOMI. Neck soft and supple. No point tenderness or step off. Cardiovascular: Regular rate and rhythm. No murmurs, rubs, or gallops appreciated. Respiratory: No tachypnea. Lungs clear to auscultation bilaterally. Gastrointestinal: Abdomen soft, nontender, with normoactive bowel sounds. No rebound or guarding. Neurological: Awake. Alert. Nonfocal, nonlateralizing. Skin: No rash. Normal color. No pallor. Dry, cracked skin right foot. Musculoskeletal: No pedal edema. Full range of motion extremities. Mild tenderness to palpation across dorsum of foot and right lateral ankle. Palpable dorsalis pedis pulse. No overt erythema. No calf pain or tenderness. No palpable cord. No right medial thigh tenderness. No noted circumferential swelling. Const Vital Signs: 07/05/21 08:13 Temperature 97.3 F L Temperature Source Temporal Pulse Rate 95 Respiratory Rate 18 Blood Pressure 181/112 H Blood Pressure Mean 135 Pulse Ox 98 Oxygen Delivery Method Room Air MDM MDM MDM Narrative Medical decision making narrative: X-ray was obtained which shows a small plantar calcaneal and testified. There is soft tissue swelling noted. I do feel that this may be more secondary to a cellulitis. Initially, the patient did not want to stay for ultrasound, but his brought up the probability that he cannot have it obtained tomorrow. He will be treated with a prescription for Keflex. His ultrasound preliminary shows no evidence of DVT. At this point in time, I feel he can be discharged safely home with follow-up to his primary care provider in a week if not improving. Return [facility] department were reviewed. Disposition is discharged home in stable condition. Radiography Diagnostic Testing: Clinical Impression(s) from Imaging Studies Ankle X-Ray 07/05/21 08:22 IMPRESSION: Soft tissue swelling. Small plantar calcaneal enthesophyte. Electronically Signed: Barney Corona MD at 9:00 EST , Discharge Plan Triage Chief Complaint: Lower Extremity Injury ED Provider: Terrell Mortensen Dx/Rx/DC Orders Clinical Impression: Ankle pain, right, Cellulitis Instructions: ED Arthralgia, ED Cellulitis Prescriptions: New amoxicillin-pot clavulanate 875-125 mg tablet 1 tab PO BID Qty: 20 RF: 0 No Action chlorthalidone 50 mg tablet 50 mg PO DAILY Qty: 90 RF: 0 (DME) blood-glucose meter [FreeStyle [place] Lite] Kit See Rx Instructions .ROUTE .MEDSUPPLY Qty: 1 RF: 0 insulin degludec 200 unit/mL (3 mL) insulin pen 40 unit SC DAILY Qty: 18 RF: 1 (DME) pen needle, diabetic [BD Ultra-Fine [place] Pen Needle] 32 gauge x 5/32 needle See Rx Instructions .ROUTE .MEDSUPPLY Qty: 400 RF: 1 (DME) lancets [FreeStyle Lancets] 28 gauge misc See Rx Instructions .ROUTE .MEDSUPPLY Qty: 100 RF: 5 amlodipine 10 MG tablet 10 mg PO DAILY RF: 0 carvedilol 25 mg tablet 25 mg PO BID RF: 0 aspirin 81 MG tablet,chewable 81 mg PO DAILY RF: 0 omeprazole 20 MG capsule,delayed release(DR/EC) 20 mg PO DAILY RF: 0 fluticasone propionate 1 SPRAY spray,suspension 1 spray NASAL BID Qty: 0 RF: 0 insulin aspart U-100 [Novolog Flexpen U-100 Insulin] 100 unit/mL (3 mL) insulin pen 15 unit SC TID Qty: 60 RF: 1 (DME) insulin syringe-needle U-100 [BD Insulin Syringe Ultra-Fine] 0.5 mL 31 gauge x 5/16 syringe See Rx Instructions .ROUTE .MEDSUPPLY Qty: 100 RF: 0 Primary Care Provider: Norris Mcqueen Referrals: Norris Mcqueen MD [Primary Care Provider] - 1 Week Disposition Disposition: Home, Self Care
--- NOTE | 2021-07-05 09:12 | VDLE_ITS ---
Reason For Study: Swelling RIGHT GSV is normal. CFV is compressible, spontaneous, phasic, competent and demonstrates normal augmentation. FV is compressible, spontaneous, phasic, competent and demonstrates normal augmentation. POP V is compressible, spontaneous, phasic, competent and demonstrates normal augmentation. T/P Trunk is compressible. PTV is compressible. RT PerV is compressible. Procedure This is a venous duplex using B-mode, color flow and spectral Doppler. Exam performed in department. A preliminary report was called and/or faxed to ED. VL/Venous Duplex US, Unilateral Interpretation Summary There is no evidence of right lower extremity deep vein thrombosis. Right great saphenous vein appears patent and compressible segmentally. Ordering Physician: Terrell Mortensen Referring Physician: Norris Mcqueen Performed By: Felecia Reynolds RVT
[2021-07-05] MEDS: HYDROcodone Bitartrate/Apap 5/325 Tablet PO (09:44)
== END 2021-07-05 11:35 | disposition home or self-care (01) ==
PROVIDERS: Emergency Provider Emergency Medicine; PCP Family Medicine; Visit Provider Emergency Medicine
DX: L03.115 Cellulitis of right lower limb (principal); Z99.2 Dependence on renal dialysis; I13.0 Hypertensive heart and chronic kidney disease with heart failure and stage 1 through stage 4 chronic kidney disease, or unspecified chronic kidney disease; I50.42 Chronic combined systolic (congestive) and diastolic (congestive) heart failure; I42.8 Other cardiomyopathies; N18.4 Chronic kidney disease, stage 4 (severe); E66.01 Morbid (severe) obesity due to excess calories; I25.2 Old myocardial infarction; G47.33 Obstructive sleep apnea (adult) (pediatric); Z79.82 Long term (current) use of aspirin; Z79.899 Other long term (current) drug therapy
CPT/HCPCS: 73610; 93971; 99284

== ENCOUNTER 2021-08-04 10:23 | Outpatient (CLI) | payer MEDICAID, SELFPAY ==
[2021-08-04 10:50] LABS: Absolute Lymphocyte Count 1.53 X10^3/uL (0.83-4.51); Absolute Neutrophil Count 3.3 X10^3/uL (2.0-7.7); Basophil# 0.04 X10^3/uL; Basophil% 0.7 % (0-1); Eosinophil# 0.13 X10^3/uL; Eosinophils% 2.4 % (0-5); Hematocrit 40.3 % (40-54); Hemoglobin 12.8 g/dL (13.0-16.5); Lymphocyte # 1.53 X10^3/ul (0.83-4.51); Lymphocyte % 27.7 % (19-41); Mean Corp Hgb Conc 31.8 g/dL (32-36); Mean Corpuscular Hgb 27.2 pg (27.0-32.0); Mean Corpuscular Volume 85.6 fL (80-94); Monocyte# 0.54 X10^3/uL; Monocyte% 9.8 % (0-10); NRBC Flagged by Analyzer 0 % (0-5); Neutrophil # 3.27 X10^3/uL (2.7-7.7); Neutrophil % 59.2 % (47-70); Platelet Count 251 K/mm3 (150-450); RBC Distribution Width CV 15.1 % (11.6-14.6); RBC Distribution Width SD 47.3 fl (35.1-43.9); Red Blood Count 4.71 M/mm3 (4.6-6.2); White Blood Count 5.5 K/mm3 (4.4-11.0)
[2021-08-04 11:26] LABS: Anion Gap 7 (5-15); BUN 43 mg/dL (7-18); BUN/Creat Ratio 5.4 RATIO (10-20); Calcium,Total 9.3 mg/dL (8.5-10.1); Chloride 95 mmol/L (98-107); EST Glomerular Filtration Rate 8 mL/min (>60); Est Glom Filt Rate - Afr Amer 9 mL/min (>60); Glucose 248 mg/dL (74-106); Potassium 4.4 mmol/L (3.5-5.1); Sodium Level 134 mmol/L (136-145)
== END 2021-08-04 23:59 | disposition home or self-care (01) ==
LOC: PAVLAB 10:24
PROVIDERS: PCP Family Medicine; Referring Provider Physician Assistant; Visit Provider Physician Assistant
DX: T82.898A Other specified complication of vascular prosthetic devices, implants and grafts, initial encounter (principal)
CPT/HCPCS: 36415; 80048; 85025

== ENCOUNTER 2021-08-18 10:52 | Day surgery (SDC) | payer MEDICAID, SELFPAY ==
[2021-08-17 11:19] VITALS: BMI 39.0
--- NOTE | 2021-08-18 11:59 | HP.PCM_ITS ---
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: No Is patient in pain?: No Allergies NSAIDS (Non-Steroidal Anti-Inflamma Adverse Reaction (Severe, Verified 08/04/21 09:52) Renal failure Medications amlodipine 10 mg PO DAILY 02/12/13 [History Confirmed 08/04/21] aspirin 81 mg PO DAILY 08/10/17 [History Confirmed 08/04/21] omeprazole 20 mg PO DAILY 08/08/18 [History Confirmed 08/04/21] chlorthalidone 50 mg tablet 50 mg PO DAILY #90 tab 01/21/19 [History Confirmed 08/04/21] blood-glucose meter #1 ea 12/22/19 [Rx Confirmed 08/04/21] lancets 28 gauge #100 ea 12/22/19 [Rx Confirmed 08/04/21] pen needle, diabetic 32 gauge x 5/32 #400 ea 12/22/19 [Rx Confirmed 08/04/21] insulin aspart U-100 100 unit/mL (3 mL) subcutaneous pen 15 unit SC TID #60 ml 12/29/19 [Rx Confirmed 08/04/21] insulin syringe-needle U-100 0.5 mL 31 gauge x 5/16 #100 ea 12/29/19 [Rx Confirmed 08/04/21] albuterol sulfate 90 mcg/actuation aerosol inhaler 2 puff INHALATION Q6H PRN 07/26/21 [History Confirmed 08/04/21] ammonium lactate 12 % lotion 1 applic TOPICAL BID 07/26/21 [History Confirmed 08/04/21] atorvastatin 80 mg tablet 80 mg PO QHS 07/26/21 [History Confirmed 08/04/21] carvedilol 25 mg tablet 50 mg PO BID tab 07/26/21 [History Confirmed 08/04/21] clonidine 0.2 mg/24 hr weekly transdermal patch 1 patch TRANSDERMAL QWEEK 07/26/21 [History Confirmed 08/04/21] ezetimibe 10 mg tablet 10 mg PO DAILY 07/26/21 [History Confirmed 08/04/21] gabapentin 100 mg capsule 200 mg PO QHS cap 07/26/21 [History Confirmed 08/04/21] insulin detemir U-100 100 unit/mL (3 mL) subcutaneous pen 40 unit SUBCUT QHS 07/26/21 [History Confirmed 08/04/21] losartan 50 mg tablet 50 mg PO DAILY 07/26/21 [History Confirmed 08/04/21] [facility] Medical History (Updated 08/04/21 @ 10:15 by Meche SUÁREZ, PAArenC) Anemia of chronic renal failure, stage 4 (severe) Chronic combined systolic and diastolic CHF (congestive heart failure) Degenerative disc disease, cervical Demand ischemia Diabetes mellitus, type II, insulin dependent Diabetic polyneuropathy Elevated troponin Essential (primary) hypertension GERD (gastroesophageal reflux disease) History of non-ST elevation myocardial infarction (NSTEMI) (04/2017) Hypertensive urgency Morbid obesity Non-ischemic cardiomyopathy Obstructive sleep apnea on CPAP VERÓNICA on CPAP Problem with dialysis access Problem with dialysis access Pulmonary hypertension Syncope (07/2018) Systolic and diastolic CHF, acute Surgical History Presence of surgically created arteriovenous shunt for hemodialysis (07/2017) Family History Mother Hypertension Social History Smoking Status: Never smoker alcohol intake: never substance use type: does not use HPI HPI HPI: LISA MASTERSON, is a 51 M who presents to the office today for difficulty with cannulation and multiple infiltrations. Patient has a left forearm radiocephalic arteriovenous fistula created on 08/17/[address] Gutierrez. Patient has not been evaluated in our office since December 2017. He recently started on dialysis approximately 1 month ago. He notes he has been infiltrated twice. They are having difficulty increasing the size of the needle due to alarms sounding. He has never had a previous fistulogram. He noted having a side branch ligation here within the office. He denies pain/discomfort at the fistula site. He denies numbness/tingling of the hand or fingers. He is maintained on a daily aspirin. ROS General General: No weight change, appetite, fatigue, colon cancer, breast cancer or weakness HEENT HEENT: No difficulty swallowing, eye injury, eye surgery, swollen glands or hoarseness Endo Endocrine: Yes diabetes mellitus; No thyroid disease, thyroid cancer, Hair loss, heat intolerance or cold intolerance Skin Skin: No rash or changing moles Musc Musculoskeletal: No back problems, arthritis, rheumatoid arthritis, gout or joint pain Cardio Cardiovascular: Yes high blood pressure; No murmur, pacemaker, heart disease, atrial fibrillation, heart attack, heart stent, palpitations, shortness of breat with exertion or chest pain Psych Psychiatric: No depression, anxiety or hearing voices Resp Respiratory: No shortness of breath, Yes sleep apnea, No cough, No COPD, No asthma, No emphysema and No wheezing Gastro Gastrointestinal: No abdominal pain, No nausea or vomiting, No diarrhea, No constipation, No blood in stool, Yes acid reflux, No hemorrhoids, No ulcers, No gallbladder problem and No black,tarry stools Atilio Hematologic: No blood thinners, No blood disorders, No bleeding, No anemia and No blood clots Neuro Neurologic: No system reviewed and no additional complaints, except as documented, No as per HPI, No abnormal gait, No abnormal hearing, No abnormal movements, No abnormal speech, No behavioral changes, No burning sensations, No confusion, No convulsions, No disequilibrium, No dizziness, No localized weakness, No frequent falls, No headache(s), No lack of coordination, No loss of vision, No memory loss, No numbness, No other visual disturbances, No radicular pain, No restless legs, No sensory deficit, No syncope, No tingling, No tremor(s), No weakness and No other Exam Const General: cooperative, healthy appearing, comfortable and no acute distress Nutritional Appearance: obese [facility] Head: normal to inspection Eyes General: appearance normal, both eyes and all related structures Neck Neck: normal visual inspection Neck mass: No Resp Effort & Inspection: normal respiratory effort Auscultation: clear to auscultation bilaterally Cardio Rate: regular rate Rhythm: regular rhythm GI Inspection: normal to inspection Palpation: soft Auscultation: normal bowel sounds Skin General: no rashes or lesions noted Neuro General: no focal motor deficits and CN's II-XI intact bilaterally Extrem Other: Left forearm radiocephalic AV fistula- good pulse, diminished bruit and thrill mid forearm x 2 places. Psych Appearance: grossly normal Affect: normal affect Assessment and Plan Assessment and Plan (1) Problem with dialysis access: Status: Acute Orders: Orders: Basic Metabolic Profile (BMP) Today CBC W/Diff, Automated Today Plan - Meche SUÁREZ, PA-C: Dr. Gutierrez will plan to perform a left forearm arteriovenous fistulogram. Procedure details, risks and benefits have been explained. Patient is maintained on a daily aspirin and may continue this medication for the procedure. Patient dialyzes on , , and . We will plan to accommodate by scheduling on a Sunday or . Patient has had the opportunity to ask and have questions answered. Patient verbally understands and agrees with the plan. I have re-examined the patient. There are no clinical changes since date of exam. Aguilar Gutierrez M.D., F.A.C.S.
--- NOTE | 2021-08-18 14:23 | PCM.OPRPT ---
Problems Associated Problem List Diagnoses (1) Problem with dialysis access: Report of Operation Date of Procedure: 08/18/21 Pre-Operative Diagnosis: Problem with left forearm radiocephalic arteriovenous hemodialysis fistula Post-Operative Diagnosis: Radial artery stenosis proximal to the anastomosis of the fistula. 2 areas of forearm cephalic vein venous stenosis Surgery/Procedure Performed:: Left upper extremity fistulogram with 7 x 80 mm EverCross angioplasty venous and 4 x 20 mm arterial angioplasty Description of Surgical Findings:: Not informed consent was obtained 51-year-old gent was taken to the special procedure lab placed on the table he received 50 mcg of fentanyl and 2 mg of Versed is intravenous sedation the left extremity sterilely prepped and draped ultrasound was used to identify the cephalic vein closer to the antecubital space under ultrasound guidance and sterile 2% lidocaine and then using a micropuncture needle I thought I entered the cephalic vein with otherwise uncomplicated wire advancement placed a 6 Macedonian sheath then advanced a Glidewire seem to go somewhat unusual less than expected placed a glide cath and using Isovue contrast obtained a fistulogram this demonstrated that I actually had access to the radial artery in an antegrade approach. There is evidence of diffuse moderate narrowing of the artery artery just proximal to the fistula anastomosis to areas of venous stenosis within the proximal portion of the fissure at about 6 cm and within the more distal portion of of the fistula in the mid forearm. Having already accessed the artery and having a sheath in place I elected to go ahead and treat the disease. I placed a Glidewire placed a 7 x 80 mm EverCross balloon and performed 2 different areas of balloon angioplasty within the cephalic vein this was just opposed to the anastomosis and that proximal portion of the fistula and then stepwise 1 more step distally. I then used a 4 x 20m Powerflex balloon to do a balloon angioplasty of the radial artery just proximal to the anastomosis. Completion views now demonstrated improvement on both areas. I completed the study of the upper arm demonstrating good upper arm and central venous outflow. I then placed a 4-0 nylon U suture around the sheath entrance site removed that secured the skin and direct pressure was held on the radial artery and the proximal third of the forearm. The hand was inspected and was noted to be viable Doppler was obtained and demonstrated that there was not only a palpable radial pulse but a Doppler signal. The patient had no pain upon sheath removal. The fistula was infected and there was good flow within the fistula during this time. As well. Direct pressure was held on the radial artery puncture site sheath site for 40 minutes. The patient remained comfortable throughout. And remained viable. Fistula remained patent. Images demonstrate a left forearm radiocephalic AV fistula with diffuse disease of the radial artery for 1 to 2 cm proximal to the anastomosis. There were 2 areas within the vein portion of the fistula with clinically significant stenosis 1 approximately 6 cm from the anastomosis and 1 in the more mid forearm. Both areas appear to respond adequately by the 7 mm angioplasty. Aguilar Gutierrez M.D., F.A.C.S. Surgeon: Aguilar Gutierrez Type of Anesthesia: IV Sedation and Local
[2021-08-18 16:12] VITALS: BP 123/81; PULSE 86; RESP 16; TEMP 36.5; O2SAT 95
[2021-08-18 17:02] VITALS: BP 131/80; PULSE 87; RESP 16; TEMP 36.5; O2SAT 94
[2021-08-18 17:45] VITALS: BP 120/81; PULSE 89; RESP 16; O2SAT 97
[2021-08-18] MEDS: Acetaminophen 325 MG Tablet PO (17:48)
[2021-08-18 19:50] VITALS: BP 156/94; PULSE 85; RESP 18; TEMP 36.5; O2SAT 96
--- NOTE | 2021-08-18 19:50 | NURSING ---
Patient ambulated in hallway, no complaints. Left arm is stable, no hematoma noted. Denies any numbness or tingling. Discharge instructions given.
== END 2021-08-18 23:59 | disposition home or self-care (01) ==
LOC: CLSP 10:54 → PCU 14:27
PROVIDERS: PCP Family Medicine; Referring Provider Surgery; Visit Provider Surgery
DX: T82.858A Stenosis of other vascular prosthetic devices, implants and grafts, initial encounter (principal); I13.0 Hypertensive heart and chronic kidney disease with heart failure and stage 1 through stage 4 chronic kidney disease, or unspecified chronic kidney disease; I50.42 Chronic combined systolic (congestive) and diastolic (congestive) heart failure; I27.20 Pulmonary hypertension, unspecified; E11.22 Type 2 diabetes mellitus with diabetic chronic kidney disease; E11.42 Type 2 diabetes mellitus with diabetic polyneuropathy; N18.4 Chronic kidney disease, stage 4 (severe); E66.01 Morbid (severe) obesity due to excess calories; Z79.4 Long term (current) use of insulin; Z79.899 Other long term (current) drug therapy; Z79.82 Long term (current) use of aspirin; K21.9 Gastro-esophageal reflux disease without esophagitis; I25.2 Old myocardial infarction; G47.33 Obstructive sleep apnea (adult) (pediatric)
CPT/HCPCS: C1725; 36902; 76937; 99152; 99153; Q9967; C1769

== ENCOUNTER 2021-09-20 09:56 | Day surgery (SDC) | payer MEDICAID, SELFPAY ==
[2021-09-19 10:05] VITALS: BMI 41.2
--- NOTE | 2021-09-20 10:53 | PCM.HP.BLA ---
History and Physical Date of Admission: 09/20/21 Intake Visit Reasons: Difficult Cannulation Chief Complaint: difficulty cannulating Jowl Trimmer Required: No Is patient in pain?: No Allergies NSAIDS (Non-Steroidal Anti-Inflamma Adverse Reaction (Severe, Verified 09/15/21 14:16) Renal failure Medications amlodipine 10 mg PO DAILY 02/12/13 [History Confirmed 09/15/21] aspirin 81 mg PO DAILY 08/10/17 [History Confirmed 09/15/21] omeprazole 20 mg PO DAILY 08/08/18 [History Confirmed 09/15/21] chlorthalidone 50 mg tablet 50 mg PO DAILY #90 tab 01/21/19 [History Confirmed 09/15/21] blood-glucose meter #1 ea 12/22/19 [Rx Confirmed 09/15/21] lancets 28 gauge #100 ea 12/22/19 [Rx Confirmed 09/15/21] pen needle, diabetic 32 gauge x 5/32 #400 ea 12/22/19 [Rx Confirmed 09/15/21] insulin aspart U-100 100 unit/mL (3 mL) subcutaneous pen 15 unit SC TID #60 ml 12/29/19 [Rx Confirmed 09/15/21] insulin syringe-needle U-100 0.5 mL 31 gauge x 5/16 #100 ea 12/29/19 [Rx Confirmed 09/15/21] albuterol sulfate 90 mcg/actuation aerosol inhaler 2 puff INHALATION Q6H PRN 07/26/21 [History Confirmed 09/15/21] ammonium lactate 12 % lotion 1 applic TOPICAL BID 07/26/21 [History Confirmed 09/15/21] atorvastatin 80 mg tablet 80 mg PO QHS 07/26/21 [History Confirmed 09/15/21] carvedilol 25 mg tablet 50 mg PO BID tab 07/26/21 [History Confirmed 09/15/21] clonidine 0.2 mg/24 hr weekly transdermal patch 1 patch TRANSDERMAL QWEEK 07/26/21 [History Confirmed 09/15/21] ezetimibe 10 mg tablet 10 mg PO DAILY 07/26/21 [History Confirmed 09/15/21] gabapentin 100 mg capsule 200 mg PO QHS cap 07/26/21 [History Confirmed 09/15/21] insulin detemir U-100 100 unit/mL (3 mL) subcutaneous pen 40 unit SUBCUT QHS 07/26/21 [History Confirmed 09/15/21] losartan 50 mg tablet 50 mg PO DAILY 07/26/21 [History Confirmed 09/15/21] [facility] Medical History (Updated 09/15/21 @ 14:43 by Karen Ann) Anemia of chronic renal failure, stage 4 (severe) Chronic combined systolic and diastolic CHF (congestive heart failure) Degenerative disc disease, cervical Demand ischemia Diabetes mellitus, type II, insulin dependent Diabetic polyneuropathy Elevated troponin Essential (primary) hypertension GERD (gastroesophageal reflux disease) History of non-ST elevation myocardial infarction (NSTEMI) (04/2017) Hypertensive urgency Morbid obesity Non-ischemic cardiomyopathy Obstructive sleep apnea on CPAP VERÓNICA on CPAP Problem with dialysis access Pulmonary hypertension Syncope (07/2018) Systolic and diastolic CHF, acute Surgical History (Updated 09/15/21 @ 14:15 by Karen Ann) History of angioplasty of peripheral vessel (~07/2021) Presence of surgically created arteriovenous shunt for hemodialysis (07/2017) Family History Mother Hypertension Social History Smoking Status: Never smoker alcohol intake: never substance use type: does not use HPI HPI HPI: LISA MASTERSON, is a 51 M who presents to the office today for poor clearance, difficult cannulation. Dr. Gutierrez performed a left upper extremity fistulogram with 7 x 80 mm Evercross angioplasty venous and 4 x 20 mm arterial angioplasty on 08/18/21. Patient noted the fistula worked well 1 week after the procedure and then the dialysis started to have problems. Patient notes the techs would infiltrate the superior access site. He notes it would depend on the tech working. Patient dialyzes M, W, and F. ROS General General: No weight change, appetite, fatigue, colon cancer, breast cancer or weakness HEENT HEENT: No difficulty swallowing, eye injury, eye surgery, swollen glands or hoarseness Endo Endocrine: Yes diabetes mellitus; No thyroid disease, thyroid cancer, Hair loss, heat intolerance or cold intolerance Skin Skin: No rash or changing moles Musc Musculoskeletal: No back problems, arthritis, rheumatoid arthritis, gout or joint pain Cardio Cardiovascular: Yes high blood pressure; No murmur, pacemaker, heart disease, atrial fibrillation, heart attack, heart stent, palpitations, shortness of breat with exertion or chest pain Psych Psychiatric: No depression, anxiety or hearing voices Resp Respiratory: No shortness of breath, Yes sleep apnea, No cough, No COPD, No asthma, No emphysema and No wheezing Gastro Gastrointestinal: No abdominal pain, No nausea or vomiting, No diarrhea, No constipation, No blood in stool, Yes acid reflux, No hemorrhoids, No ulcers, No gallbladder problem and No black,tarry stools Atilio Hematologic: No blood thinners, No blood disorders, No bleeding, No anemia and No blood clots Neuro Neurologic: No system reviewed and no additional complaints, except as documented, No as per HPI, No abnormal gait, No abnormal hearing, No abnormal movements, No abnormal speech, No behavioral changes, No burning sensations, No confusion, No convulsions, No disequilibrium, No dizziness, No localized weakness, No frequent falls, No headache(s), No lack of coordination, No loss of vision, No memory loss, No numbness, No other visual disturbances, No radicular pain, No restless legs, No sensory deficit, No syncope, No tingling, No tremor(s), No weakness and No other Exam Const General: cooperative, healthy appearing, comfortable and no acute distress HENLA Head: normal to inspection Eyes General: appearance normal, both eyes and all related structures Neck Neck: normal visual inspection Neck mass: No Resp Effort & Inspection: normal respiratory effort Auscultation: clear to auscultation bilaterally Cardio Rate: regular rate Rhythm: regular rhythm GI Inspection: normal to inspection Palpation: soft Auscultation: normal bowel sounds Skin General: no rashes or lesions noted Neuro General: no focal motor deficits and CN's II-XI intact bilaterally Extrem Other: Left forearm AV fistula- good pulse, bruit and thrill. Dr. Gutierrez performed an in office ultrasound which demonstrated a moderate sized side branch. Psych Appearance: grossly normal Affect: normal affect Assessment and Plan Assessment and Plan (1) Pre-op testing: Status: Acute Orders: Orders: CBC-Complete Blood Cnt No Diff Today Basic Metabolic Profile (BMP) Today Plan - Meche SUÁREZ PAArenC: Dr. Gutierrez has also evaluated the patient. Dr. Gutierrez will plan to perform a side branch ligation within the qc lab technician utilizing a coil. Patient has had the opportunity to ask and have questions answered. Patient verbally understands and agrees with the plan. Patient has had a previous side branch ligation in the same location: Office Procedures [facility] [place] Procedure Procedure Performed By: Procedure performed by: Agustina Details Left forearm radiocephalic arteriovenous fistula side branch ligation successful ?1 and unsuccessful ?1 Timeout and informed consent was obtained. 47-year-old gentleman was taken to procedure room. I performed ultrasound of the left forearm radiocephalic arteriovenous fistula. There were 2 Dominant Side Branches Close to the wrist. I carefully ink marked both of these sites. The arm was then prepped with Betadine. 1% lidocaine mixed 50-50 with 0.5% Marcaine was used as a local anesthetic. Throughout the procedure total of 8 cc was used. The side branch closer to the wrist was more readily identified. This was done to a small transverse incision blunt dissection was used to identify it it was then ligated with a 3-0 chromic and a 2-0 chromic. I then attempted to identify the slightly more proximal side branch. Unfortunately despite aggressive attempts I could not identify that side branch. The patient started having some discomfort so I elected to forego further investigation. Both wounds were closed with interrupted 3-0 chromic subdermal stitches. Steri-Strips Telfa and OpSite dressings applied. At the completion of the procedure the fistula seemed to have somewhat improved pulse thrill and bruit. He will continue to assist with maturation of the fistula. We will continue to keep close tabs on his progress and he will return as instructed. No specimens. No drains. Blood loss minimal Aguilar Gutierrez M.D., F.A.C.S. I have re-examined the patient. There are no clinical changes since date of exam. Aguilar Gutierrez M.D., F.A.C.S.
[2021-09-20 11:07] LABS: Hematocrit 34.6 % (40-54); Hemoglobin 10.9 g/dL (13.0-16.5); Mean Corp Hgb Conc 31.5 g/dL (32-36); Mean Corpuscular Volume 85.9 fL (80-94); Mean Platelet Vol. 9.6 fl (6.2-12.0); Platelet Count 300 K/mm3 (150-450); RBC Distribution Width CV 14.3 % (11.6-14.6); Red Blood Count 4.03 M/mm3 (4.6-6.2); White Blood Count 7.1 K/mm3 (4.4-11.0)
[2021-09-20 11:34] LABS: Anion Gap 11 (5-15); BUN 68 mg/dL (7-18); BUN/Creat Ratio 6.8 RATIO (10-20); Calcium,Total 9.7 mg/dL (8.5-10.1); Chloride 96 mmol/L (98-107); EST Glomerular Filtration Rate 6 mL/min (>60); Est Glom Filt Rate - Afr Amer 7 mL/min (>60); Estimated Creatinine Clearance 8.74 ml/min; Glucose 159 mg/dL (74-106); Potassium 4.7 mmol/L (3.5-5.1); Sodium Level 135 mmol/L (136-145)
--- NOTE | 2021-09-20 12:20 | OP.PCM_ITS ---
Problems Associated Problem List Diagnoses (1) Problem with dialysis access: Report of Operation Date of Procedure: 09/20/21 Pre-Operative Diagnosis: Problem with dialysis access Post-Operative Diagnosis: Left forearm radiocephalic arteriovenous hemodialysis fistula venous stenosis. Surgery/Procedure Performed:: Left upper extremity fistulogram with 8 x 80 EverCross angioplasty Description of Surgical Findings:: Timeout informed consent was obtained. 51-year-old gentleman was taken to the special procedures lab placed on the table. He received 50 mcg of fentanyl and 2 mg of Versed is intravenous sedation. The left extremity sterilely prepped and draped. Ultrasound was used to identify the cephalic vein close to the antecubital space. Under ultrasound guidance 2% lidocaine was instilled as a local anesthetic. Micropuncture needle was inserted retrograde with flow. Micropuncture wire inserted. 6 Namibian short sheath was inserted. Using a 4 Namibian IM catheter and 035 angled Glidewire access was eventually gained to the radial artery proximal to the anastomosis. Isovue was used obtain a fistulogram of the forearm demonstrating that the radial artery was widely patent anastomosis patent there were 2 areas of high- grade stenosis within the proximal 6 cm of the anastomosis. Then there was a dominant sidebranch emanating medially about 8 cm from the anastomosis. My initial plan was to treat the stenosis of the major vein and then come back to get the sidebranch. A 8 x 80 EverCross balloon was inserted insufflated all the way up to 16 sybil of pressure. 2 separate insufflations performed. Final imaging demonstrated marked improvement with some recoil left at least 10 to 15% in each of the 2 areas of high-grade stenosis. But the major vein appeared to b e widely open and patent. Interestingly enough the sidebranch completely occluded. I did make other attempts to get to the same side branch from a more proximal approach but was not able to engage the pathway so at this point having remedied the majority of the inflow issues and not being able to further identify the dominant sidebranch I completed the procedure. He tolerated the well sheath was removed U suture of 4-0 nylon was placed there was an excellent pulse thrill and bruit Fistulogram demonstrates a left forearm radiocephalic arteriovenous hemodialysis fistula with 2 areas of high-grade at the 70 to 80% stenosis within the proximal 6 cm of the origin. Subsequent angioplasty of these were majority resolved with some slight 10 to 15% recoil at each of the 2 areas. The originally identified sidebranch now not demonstrated on further imaging. Specimens none. Drains none. Blood loss minimal Aguilar Gutierrez M.D., F.A.C.S. Surgeon: Aguilar Gutierrez Type of Anesthesia: IV Sedation and Local
== END 2021-09-20 13:15 | disposition home or self-care (01) ==
LOC: CLSP 09:58
PROVIDERS: Physician Assistant; PCP Family Medicine; Referring Provider Surgery; Visit Provider Surgery
DX: T82.858A Stenosis of other vascular prosthetic devices, implants and grafts, initial encounter (principal); I13.0 Hypertensive heart and chronic kidney disease with heart failure and stage 1 through stage 4 chronic kidney disease, or unspecified chronic kidney disease; I50.42 Chronic combined systolic (congestive) and diastolic (congestive) heart failure; I27.20 Pulmonary hypertension, unspecified; I42.8 Other cardiomyopathies; E11.40 Type 2 diabetes mellitus with diabetic neuropathy, unspecified; N18.4 Chronic kidney disease, stage 4 (severe); E66.01 Morbid (severe) obesity due to excess calories; Z79.4 Long term (current) use of insulin; I25.2 Old myocardial infarction; G47.33 Obstructive sleep apnea (adult) (pediatric); Z79.899 Other long term (current) drug therapy; M50.30 Other cervical disc degeneration, unspecified cervical region; Z79.82 Long term (current) use of aspirin; Y83.2 Surgical operation with anastomosis, bypass or graft as the cause of abnormal reaction of the patient, or of later complication, without mention of misadventure at the time of the procedure
CPT/HCPCS: 36415; 36902; 76937; 80048; 85027; 99152; 99153; Q9967; C1725; C1769

== ENCOUNTER 2022-02-20 04:22 | Observation (INO) | payer MEDICAID, SELFPAY ==
[2022-02-20] VITALS (17 sets, daily range): BP systolic 137–215; BP diastolic 86–116; PULSE 88–106; RESP 18–26; TEMP 35.8–36.6; O2SAT 83–98; BMI 44.9; BMI 43.9
--- NOTE | 2022-02-20 04:28 | EKG12_ITS ---
Test Reason : DYSRHYTHMIA Blood Pressure : / mmHG Vent. Rate : 101 BPM Atrial Rate : 101 BPM P-R Int : 136 ms QRS Dur : 090 ms QT Int : 370 ms P-R-T Axes : 047 -13 021 degrees QTc Int : 479 ms Sinus tachycardia Voltage criteria for left ventricular hypertrophy Nonspecific ST abnormality Abnormal ECG Confirmed by CODIE WILLETT, ADALBERTO ([id number]), advertising editor MADYSON YOST ([id number]) on 02/22/2022 8:30:20 AM Referred By: ORTEGA Confirmed By:ADALBERTO MACKAY MD
--- NOTE | 2022-02-20 04:30 | EDS_ITS ---
HPI History of Present Illness Chief Complaint: Shortness of Breath Informant: patient Onset/Context/Timing Onset: Days (several) Context: gradual and onset (much worse tonight) Timing: Continuous Quality: Positive for Dyspnea on exertion and Orthopnea Current Severity: Moderate Maximum Severity: Severe Worsened by: Exertion, Lying flat and Coughing Relieved by: Rest and Oxygen Associated Symptoms cough Chest Pain: Positive for Continuous and Tightness Narrative Narrative: 51-year-old male presenting with dyspnea especially with lying flat tonight which is why presents around 4:30 AM. Yesterday states [place] significant difficulty but his breathing really got worse tonight. He has history of congestive heart failure, he denies any edema in his legs. He has had chest tightness even at rest. He has a cough that is nonproductive, no fevers. Unvaccinated against COVID. No known exposures to COVID that he knows of recently. He is a dialysis patient. He presents Sunday night/Sunday morning, he missed Wednesdays dialysis last week because he was having a diarrheal illness, he was having no dyspnea then. He went to Fridays dialysis and everything went fine. He denies drinking more fluids than usual or eating more salt-containing foods than usual. [facility] Medical History Anemia of chronic renal failure, stage 4 (severe) Degenerative disc disease, cervical Demand ischemia Diabetes mellitus, type II, insulin dependent Diabetic polyneuropathy (04/2017) Elevated troponin Essential (primary) hypertension GERD (gastroesophageal reflux disease) Hypotension Morbid obesity Non-ischemic cardiomyopathy Obstructive sleep apnea on CPAP Problem with dialysis access Syncope (07/2018) Systolic and diastolic CHF, acute Home Medications aspirin 81 mg chewable tablet 81 mg PO DAILY HEART 08/10/17 [History Last Taken 08/08/18] omeprazole 20 mg capsule,delayed release 20 mg PO DAILY gerd 08/08/18 [History Last Taken 08/08/18] blood-glucose meter (FreeStyle [place] Lite kit) #1 ea 12/22/19 [Rx Last Taken Unknown] lancets 28 gauge (FreeStyle Lancets) #100 ea 12/22/19 [Rx Last Taken Unknown] pen needle, diabetic 32 gauge x (BD Ultra-Fine [place] Pen Needle) #400 ea 12/22/19 [Rx Last Taken Unknown] insulin aspart U-100 100 unit/mL (3 mL) subcutaneous pen (Novolog Flexpen U-100 Insulin aspart) 15 unit (0.15 mL) subcut TID #60 mL 12/29/19 [Rx Last Taken Unknown] insulin syringe-needle U-100 0.5 mL 31 gauge x 5/16 (BD Insulin Syringe Ultra- Fine) #100 ea 12/29/19 [Rx Last Taken Unknown] albuterol sulfate 90 mcg/actuation aerosol inhaler 2 puff inhalation Q6H PRN Shortness Of Breath Or Wheezing 07/26/21 [History Last Taken Unknown] ammonium lactate 12 % lotion 1 applic topical BID 07/26/21 [History Last Taken Unknown] atorvastatin 80 mg tablet 80 mg PO QHS 07/26/21 [History Last Taken Unknown] carvedilol 25 mg tablet 50 mg PO BID BP 07/26/21 [History Last Taken 08/18/21] ezetimibe 10 mg tablet 10 mg PO DAILY 07/26/21 [History Last Taken Unknown] gabapentin 100 mg capsule 200 mg PO QHS 07/26/21 [History Last Taken Unknown] insulin detemir U-100 100 unit/mL (3 mL) subcutaneous pen (Levemir FlexTouch U- 100 Insulin) 40 unit subcut QHS 07/26/21 [History Last Taken Unknown] losartan 50 mg tablet 50 mg PO DAILY 07/26/21 [History Last Taken 08/18/21] chlorthalidone 25 mg tablet 25 mg PO DAILY #90 tabs 09/30/21 [Rx Last Taken Unknown] Allergy/AdvReac Type Severity Reaction Status Date / Time liraglutide [From Victoza] Allergy Unknown unknown Verified 02/20/22 04:27 NSAIDS (Non-Steroidal AdvReac Severe Renal Verified 02/20/22 04:27 Anti-Inflamma failure BLANCA Inhibitors AdvReac Intermediate cough Verified 02/20/22 04:27 Family History Mother Hypertension Grandmother Aneurysm Surgical History History of angioplasty of peripheral vessel (07/2021) Presence of surgically created arteriovenous shunt for hemodialysis (07/2017) Social History Smoking Status: Never smoker alcohol intake: never substance use type: does not use ROS ROS ED Constitutional Constitutional ED: Denies chills or fever(s) Eyes Eyes: Denies change in vision or diplopia ENT ENT ED: Denies rhinorrhea or sore throat Cardiovascular Cardiovascular: Reports chest pain and orthopnea; Denies leg edema or palpitations Respiratory/Chest Respiratory/Chest: Reports cough, dyspnea, dyspnea on exertion and orthopnea; Denies sputum Gastrointestinal Gastrointestinal: Denies abdominal pain, diarrhea, nausea or vomiting Genitourinary Genitourinary ED: Denies dysuria or hematuria Musculoskeletal Musculoskeletal: Denies back pain or neck pain Integumentary Denies abscess or rash Neurologic Neurologic: Denies headache(s), paresthesias or weakness Psychiatric Psychiatric: Denies anxiety or suicidal thoughts EXAM Physical Exam Const Vital Signs: 02/20/22 04:23 02/20/22 04:26 02/20/22 04:29 Temperature 96.4 F L Temperature Source Temporal Pulse Rate 106 H Respiratory Rate 21 H Respiratory Effort Short of Breath Labored Respiratory Depth Respiratory Pattern Blood Pressure 215/116 H Blood Pressure Mean 149 Pulse Ox 83 92 Oxygen Delivery Method Room Air Nasal Cannula Nasal Cannula Oxygen Flow Rate (L/min) 3 3 02/20/22 04:32 02/20/22 04:35 02/20/22 04:35 Temperature Temperature Source Pulse Rate 101 H Respiratory Rate 22 H 26 H Respiratory Effort Short of Breath Respiratory Depth Shallow Respiratory Pattern Tachypnea Tachypnea Blood Pressure Blood Pressure Mean Pulse Ox 95 96 Oxygen Delivery Method Nasal Cannula Nasal Cannula Oxygen Flow Rate (L/min) 3 3 02/20/22 05:34 02/20/22 06:43 Temperature Temperature Source Pulse Rate 104 H Respiratory Rate Respiratory Effort Respiratory Depth Respiratory Pattern Blood Pressure 164/93 H 152/97 H Blood Pressure Mean 116 115 Pulse Ox 97 Oxygen Delivery Method Room Air Oxygen Flow Rate (L/min) Positive well nourished, well developed and obese General Appearance ED: well developed and NAD Nutritional Appearance: obese HEENT Reports moist mucous membranes normocephalic and atraumatic Eyes PERRL and EOMs intact bilaterally Neck full ROM, supple and no JVD Resp normal respiratory effort Resp Narrative: Possibly rhonchi in the bases, very diminished, obesity limiting the exam as well. No distress. Cardio regular rate, regular rhythm and no murmurs Rate: Negative for tachycardic GI non-tender and non-distended Auscultation: normoactive bowel sounds Palpation: soft Back/Spine no CVA tenderness General Back: other FROM Extremity normal to inspection General Extremety ED: Negative for edema, pulses abnormal or tenderness General Extremity: Negative for edema or pulses abnormal Neuro oriented x3, CN's II-XII intact bilaterally and no sensory deficits noted Sensorium / Orientation: awake and alert Motor Exam: strength 5/5 throughout Psych mental status grossly normal Skin no rashes or lesions noted and no wounds MDM MDM MDM Narrative Medical decision making narrative: Upon triaging the patient he was very hypoxic in the low 70s. We put him on a nasal cannula, he came up to the 90s and gave him an albuterol treatment which really helped his breathing and chest tightness. No distress. His pressure is very elevated. I discussed this with him, he states since he has been a dialysis patient his pressures usually normal and this is very abnormal for him. Therefore I started by giving him hydralazine 20 mg to attempt to aggressively decrease it, as this may be causing what appears to be CHF/pulmonary edema on his 1 view chest x-ray, on my interpretation. His EKG appears to show no acute injury pattern, does not show significant strain at this time, just stable left ventricular hypertrophy. Radiology is interpreted patient's chest x-ray as a possible right-sided infiltrate, so I am covering him with IV antibiotics, but my suspicion is that this is more CHF-related; he states the last several days he has been doing well but he has been having paroxysmal nocturnal dyspnea repeatedly which is abnormal for him. Given the degree of hypoxemia, plan is for admission. After the hydralazine his blood pressure came down nicely, currently 157/92 and he is breathing much better after that and the breathing treatment. He is due for dialysis today. His electrolytes are within normal limits, he does not have a significant leukocytosis. His finance lead is Dr. Lmaar, I discussed this with him. Will discuss with hospitalist. Lab Data Attestation: I reviewed the patient's lab results. Labs: Laboratory Results - last 24 hr 02/20/22 02/20/22 02/20/22 04:35 04:35 05:47 WBC 9.0 RBC 3.71 L Hgb 10.6 L Hct 32.4 L MCV 87.3 MCH 28.6 MCHC 32.7 RDW Std Deviation 43.3 RDW Coeff of Kyle 13.6 Plt Count 344 MPV 9.7 Immature Gran % (Auto) 0.300 Neut % (Auto) 64.7 Lymph % (Auto) 24.2 Stokes % (Auto) 7.5 Eos % (Auto) 2.7 Baso % (Auto) 0.6 Absolute Neuts (auto) 5.8 Absolute Lymphs (auto) 2.17 Nucleated RBC % 0 Sodium Cancelled 139 Potassium Cancelled 4.9 Chloride Cancelled 101 Carbon Dioxide Cancelled 25.0 Anion Gap Cancelled 13 BUN Cancelled 74 H Creatinine Cancelled 14.50 H* Estim Creat Clear Calc Cancelled 6.03 Est GFR (MDRD) Af Amer Cancelled 5 L Est GFR (MDRD) Non-Af Cancelled 4 L BUN/Creatinine Ratio Cancelled 5.1 L Glucose Cancelled 141 H Calcium Cancelled 9.0 Troponin I High Sens Cancelled 61 Radiography Chest X-Ray - ED: 1 View, Read by ED Physician, Cardiomegaly and CHF Diagnostic Testing: Clinical Impression(s) from Imaging Studies Chest X-Ray 02/20/22 04:55 IMPRESSION: Patchy right basilar opacity concerning for pneumonia in the appropriate setting. Radiographic follow-up recommended after treatment to ensure resolution. Mild left basilar subsegmental atelectasis. Electronically Signed: Audi Regalado MD at 5:41 EDT Reading Location ID and State: [facility] / [place] Tel , Service support , Rhythm Strip Rhythm Strip: Sinus Rhythm Rate: 100 Ectopy: None EKG Initial EKG: Attestation: I personally reviewed and interpreted this EKG as follows: Interpretation: No Acute Injury Pattern and - (LVH) Prior EKG tracings: available for review Prior: Unchanged Discharge Plan Dx/Rx/DC Orders Clinical Impression: Hypoxemia, Chronic kidney disease with end stage renal failure on dialysis, Acute exacerbation of CHF (congestive heart failure), Hypertensive urgency, Chest tightness Disposition Disposition: Acute Care Hospital [facility]
[2022-02-20] MEDS: Albuterol 2.5 MG/3 ML VIAL.NEB. INHALATION (04:35)
[2022-02-20 04:49] LABS: Absolute Lymphocyte Count 2.17 X10^3/uL (0.83-4.51); Absolute Neutrophil Count 5.8 X10^3/uL (2.0-7.7); Basophil# 0.05 X10^3/uL; Basophil% 0.6 % (0-1); Eosinophil# 0.24 X10^3/uL; Eosinophils% 2.7 % (0-5); Hematocrit 32.4 % (40-54); Hemoglobin 10.6 g/dL (13.0-16.5); Lymphocyte # 2.17 X10^3/ul (0.83-4.51); Lymphocyte % 24.2 % (19-41); Mean Corp Hgb Conc 32.7 g/dL (32-36); Mean Corpuscular Hgb 28.6 pg (27.0-32.0); Mean Corpuscular Volume 87.3 fL (80-94); Mean Platelet Vol. 9.7 fl (6.2-12.0); Monocyte# 0.67 X10^3/uL; Monocyte% 7.5 % (0-10); NRBC Flagged by Analyzer 0 % (0-5); Neutrophil # 5.82 X10^3/uL (2.7-7.7); Neutrophil % 64.7 % (47-70); Platelet Count 344 K/mm3 (150-450); RBC Distribution Width CV 13.6 % (11.6-14.6); RBC Distribution Width SD 43.3 fl (35.1-43.9); Red Blood Count 3.71 M/mm3 (4.6-6.2)
--- NOTE | 2022-02-20 04:55 | RAD_ITS ---
INDICATION: cough sob cp EXAMINATION/TECHNIQUE: X-RAY - XR Chest 1 View COMPARISON: November 21, 2018. FINDINGS: LINES/DEVICES: None. LUNGS: Small patchy opacities in the right lung base. Linear subsegmental atelectasis in the left lung base. No effusion. No pneumothorax. MEDIASTINUM AND CARDIOVASCULAR STRUCTURES: Cardiac silhouette not enlarged. BONES AND SOFT TISSUES: Unremarkable. RAD/Chest 1 View (Portable) IMPRESSION: Patchy right basilar opacity concerning for pneumonia in the appropriate setting. Radiographic follow-up recommended after treatment to ensure resolution. Mild left basilar subsegmental atelectasis. Electronically Signed: Audi Regalado MD at 5:41 EDT ,
[2022-02-20] MEDS: hydrALAZINE 20 MG/ML Vial IV (05:13)
[2022-02-20] MEDS: Ondansetron 4 MG/2 ML Vial IV (05:13)
[2022-02-20 06:28] LABS: Anion Gap 13 (5-15); BUN 74 mg/dL (7-18); BUN/Creat Ratio 5.1 RATIO (10-20); Chloride 101 mmol/L (98-107); EST Glomerular Filtration Rate 4 mL/min (>60); Est Glom Filt Rate - Afr Amer 5 mL/min (>60); Estimated Creatinine Clearance 6.03 ml/min; Glucose 141 mg/dL (74-106); Potassium 4.9 mmol/L (3.5-5.1); Sodium Level 139 mmol/L (136-145); Troponin-I HS 61 pg/mL (3.0-78.0)
[2022-02-20] MEDS: Ceftriaxone 1 GM/50 ML BAG IV (07:03)
--- NOTE | 2022-02-20 07:15 | ECHOCS_ITS ---
Reason For Study: CHF Procedure This was a 2D Doppler, Color Flow transthoracic echocardiogram. The study was technically difficult. Contrast injection was performed. Exam performed portable in patient room. Left Ventricle Normal LV size. Mild concentric left ventricular hypertrophy. Left ventricular systolic function is lower limits of normal. The estimated ejection fraction is 50 %. There is borderline global hypokinesis of the left ventricle. Right Ventricle Normal RV size. Normal systolic function. Atria Normal left atrium. Normal right atrium. Mitral Valve Normal mitral valve. Mild (1+) eccentric mitral valve insufficiency. Tricuspid Valve Normal tricuspid valve. Mild tricuspid valve insufficiency. Aortic Valve Trisinus/trileaflet aortic valve. Pulmonic Valve The pulmonic valve is not well visualized. Great Vessels Normal aortic root. The pulmonary artery is normal size. Normal inferior vena cava. Pericardium/Pleural No pericardial effusion. Medication Diluted definity 2ml given slow IV push to enhance endocardial definition. MMode/2D Measurements & Calculations LVIDd: 6.4 cm IVSd: 1.2 cm Ao root diam: 3.0 cm LVIDs: 5.1 cm LVPWd: 1.5 cm LA dimension: 4.0 cm FS: 20.1 % LAV(MOD-bp): 66.8 ml LVAd ap4: 41.9 cm2 SV(MOD-sp4): 63.9 ml LAV(MOD-bp) Indexed: 27.1 ml/m2 LVLd ap4: 9.3 cm LAV(MOD-sp2): 58.5 ml EDV(MOD-sp4): 157.0 ml LAV(MOD-sp4): 62.5 ml EDV(sp4-el): 159.8 ml LVAs ap4: 30.8 cm2 LVLs ap4: 8.6 cm ESV(MOD-sp4): 93.1 ml ESV(sp4-el): 93.7 ml EF(MOD-sp4): 40.7 % EF(sp4-el): 41.4 % SV(sp4-el): 66.1 ml LA A4 area: 22.4 cm2 RA A4 area: 20.7 cm2 Time Measurements MV dec time: 0.16 sec Doppler Measurements & Calculations MV E max john: 84.4 cm/sec Lat Peak E' John: 10.2 cm/sec Med Peak E' John: 8.9 cm/sec MV A max jhon: 90.9 cm/sec E/E' lat: 8.3 E/E' med: 9.5 MV E/A: 0.93 Ao V2 max: 135.1 cm/sec LV V1 max: 98.3 cm/sec MR max john: 502.7 cm/sec Ao max P.3 mmHg LV V1 max P.9 mmHg MR max P.1 mmHg Ao V2 mean: 92.7 cm/sec LV V1 mean P.1 mmHg MR mean john: 407.4 cm/sec Ao mean P.0 mmHg LV V1 mean: 66.7 cm/sec MR mean P.8 mmHg Ao V2 VTI: 25.1 cm LV V1 VTI: 17.0 cm MR VTI: 164.1 cm PA V2 max: 75.4 cm/sec TR max john: 292.6 cm/sec TR max P.3 mmHg ECHO/Echo Complete W/ Contrast Interpretation Summary Normal LV size. Mild concentric left ventricular hypertrophy. Left ventricular systolic function is lower limits of normal. The estimated ejection fraction is 50 %. There is borderline global hypokinesis of the left ventricle. Ordering Physician: Yoselin King Referring Physician: Norris Mcqueen Performed By: Reza Groves RCS
[2022-02-20] MEDS: Acetaminophen 500 MG Tablet 1000 MG PO (07:35)
[2022-02-20] MEDS: Aspirin 81 MG TAB.CHEW PO (08:59)
[2022-02-20] MEDS: 0.9% Saline Lock 10 ML Syringe IV (08:59)
[2022-02-20] MEDS: Pantoprazole Sodium 20 MG Tablet PO (08:59)
[2022-02-20] MEDS: Ezetimibe 10 MG Tablet PO (08:59)
[2022-02-20] MEDS: Losartan Potassium 50 MG Tablet PO (09:01)
[2022-02-20] MEDS: Carvedilol 25 MG Tablet 50 MG PO ×2 (09:01→22:17)
[2022-02-20 09:20] LABS: Troponin-I HS 64 pg/mL (3.0-78.0)
--- NOTE | 2022-02-20 11:47 | CON.PCM.RE_ITS ---
Assessment & Plan Assessment/Plan (1) Chronic kidney disease with end stage renal failure on dialysis: PLAN: ESRD, on hemodialysis. Last dialysis was Sunday. Looks like he was living about 1 kg above dry weight on Sunday. No significant peripheral edema. Chest x-ray shows consolidation with possibly some fluid. We will plan for di alysis today, fluid removal as tolerated. PLAN: Plan Pneumonia. Infectious work-up as per primary. Discussed with hospitalist. HPI Consult Data Date of Consult: 02/20/22 HPI Narrative Reason for Consultation: ESRD. HPI Narrative: LISA MASTERSON, is a 51 M who presents to the hospital with complaints of shortness of breath. Nephrology on consultation for ESRD. History of dialysis, Sunday schedule. Last dialysis was Sunday. He did miss 1 treatment last week due to diarrhea. About 3 L of fluid was removed on Sunday. Started having shortness of breath yesterday which got worse this morning. Presented to the ER. Chest x-ray consistent with pneumonia. Diarrhea is now resolved. No fever or chills. Access is AV fistula. [facility] Medical History Anemia of chronic renal failure, stage 4 (severe) Degenerative disc disease, cervical Demand ischemia Diabetes mellitus, type II, insulin dependent Diabetic polyneuropathy (04/2017) Elevated troponin Essential (primary) hypertension GERD (gastroesophageal reflux disease) Hypotension Morbid obesity Non-ischemic cardiomyopathy Obstructive sleep apnea on CPAP Problem with dialysis access Syncope (07/2018) Systolic and diastolic CHF, acute Home Medications aspirin 81 mg chewable tablet 81 mg PO DAILY HEART 08/10/17 [History Last Taken 08/08/18] omeprazole 20 mg capsule,delayed release 20 mg PO DAILY gerd 08/08/18 [History Last Taken 08/08/18] blood-glucose meter (FreeStyle [place] Lite kit) #1 ea 12/22/19 [Rx Last Taken Unknown] lancets 28 gauge (FreeStyle Lancets) #100 ea 12/22/19 [Rx Last Taken Unknown] pen needle, diabetic 32 gauge x (BD Ultra-Fine [place] Pen Needle) #400 ea 12/22/19 [Rx Last Taken Unknown] insulin aspart U-100 100 unit/mL (3 mL) subcutaneous pen (Novolog Flexpen U-100 Insulin aspart) 15 unit (0.15 mL) subcut TID #60 mL 12/29/19 [Rx Last Taken Unknown] insulin syringe-needle U-100 0.5 mL 31 gauge x 5/16 (BD Insulin Syringe Ultra- Fine) #100 ea 12/29/19 [Rx Last Taken Unknown] albuterol sulfate 90 mcg/actuation aerosol inhaler 2 puff inhalation Q6H PRN Shortness Of Breath Or Wheezing 07/26/21 [History Last Taken Unknown] ammonium lactate 12 % lotion 1 applic topical BID 07/26/21 [History Last Taken Unknown] atorvastatin 80 mg tablet 80 mg PO QHS 07/26/21 [History Last Taken Unknown] carvedilol 25 mg tablet 25 mg PO BID BP 07/26/21 [History Last Taken 08/18/21] ezetimibe 10 mg tablet 10 mg PO DAILY 07/26/21 [History Last Taken Unknown] gabapentin 100 mg capsule 200 mg PO QHS 07/26/21 [History Last Taken Unknown] insulin detemir U-100 100 unit/mL (3 mL) subcutaneous pen (Levemir FlexTouch U- 100 Insulin) 40 unit subcut QHS 07/26/21 [History Last Taken Unknown] losartan 50 mg tablet 50 mg PO DAILY 07/26/21 [History Last Taken 08/18/21] chlorthalidone 25 mg tablet 25 mg PO DAILY #90 tabs 09/30/21 [Rx Last Taken Unknown] sucroferric oxyhydroxide 500 mg chewable tablet (Velphoro) 1,500 mg PO TID 02/20/22 [History Last Taken Unknown] Allergy/AdvReac Type Severity Reaction Status Date / Time liraglutide [From Victoza] Allergy Unknown unknown Verified 02/20/22 04:27 NSAIDS (Non-Steroidal AdvReac Severe Renal Verified 02/20/22 04:27 Anti-Inflamma failure BLANCA Inhibitors AdvReac Intermediate cough Verified 02/20/22 04:27 Family History Mother Hypertension Grandmother Aneurysm Surgical History History of angioplasty of peripheral vessel (07/2021) Presence of surgically created arteriovenous shunt for hemodialysis (07/2017) Social History Smoking Status: Never smoker alcohol intake: never substance use type: does not use ROS ROS Narrative Negative except above Physical Exam Narrative Alert awake oriented x 3 no obvious distress no pallor no icterus no JVD s1s2 no murmurs lungs clear abdomen soft no organomegaly no edema no cyanosis Lab / Micro Data Result Diagrams: 02/20/22 04:35 02/20/22 05:47 Labs: Laboratory Results - last 24 hr 02/20/22 04:35: WBC 9.0, RBC 3.71 L, Hgb 10.6 L, Hct 32.4 L, MCV 87.3, MCH 28.6, MCHC 32.7, RDW Std Deviation 43.3, RDW Coeff of Kyle 13.6, Plt Count 344, MPV 9.7, Immature Gran % (Auto) 0.300, Neut % (Auto) 64.7, Lymph % (Auto) 24.2, Kay % (Auto) 7.5, Eos % (Auto) 2.7, Baso % (Auto) 0.6, Absolute Neuts (auto) 5.8, Absolute Lymphs (auto) 2.17, Nucleated RBC % 0 02/20/22 04:35: Sodium Cancelled, Potassium Cancelled, Chloride Cancelled, Carbon Dioxide Cancelled, Anion Gap Cancelled, BUN Cancelled, Creatinine Cancelled, Estim Creat Clear Calc Cancelled, Est GFR (MDRD) Af Amer Cancelled, Est GFR (MDRD) Non-Af Cancelled, BUN/Creatinine Ratio Cancelled, Glucose Cancelled, Calcium Cancelled, Troponin I High Sens Cancelled 02/20/22 05:47: Sodium 139, Potassium 4.9, Chloride 101, Carbon Dioxide 25.0, Anion Gap 13, BUN 74 H, Creatinine 14.50 H*, Estim Creat Clear Calc 6.03, Est GFR (MDRD) Af Amer 5 L, Est GFR (MDRD) Non-Af 4 L, BUN/Creatinine Ratio 5.1 L, Glucose 141 H, Calcium 9.0, Troponin I High Sens 61 02/20/22 08:51: Troponin I High Sens 64 Micro: Microbiology 02/20/22 07:39 Urine, Random Legionella Antigen - Final 02/20/22 07:39 Urine, Random Streptococcus pneumoniae Antigen (M - Final 02/20/22 04:41 Nasal Secretion SARS-CoV-2 & FLU Antigen (Rapid) - Final Rhythm Strip Rhythm Strip: Sinus Rhythm Rate: 100 Ectopy: None Radiology Impression Chest X-Ray 02/20/22 04:55 IMPRESSION: Patchy right basilar opacity concerning for pneumonia in the appropriate setting. Radiographic follow-up recommended after treatment to ensure resolution. Mild left basilar subsegmental atelectasis. Electronically Signed: Audi Regalado MD at 5:41 EDT ,
[2022-02-20] MEDS: Insulin Lispro 100 UNIT/ML INSULN.PEN SC (11:57)
[2022-02-20 12:15] LABS: Bedside Glucose 212 mg/dL (74-106)
[2022-02-20 12:56] LABS: Troponin-I HS 57 pg/mL (3.0-78.0)
[2022-02-20] MEDS: Heparin Injection (Vial) 5,000 UNIT/ML VIAL 5000 UNIT SC ×2 (13:46→22:17)
--- NOTE | 2022-02-20 13:51 | PCM.HP.STD ---
HPI - General General Date of Admission: 02/20/22 Date of Service: 02/20/22 Chief Complaint: Shortness of breath HPI Narrative LISA MASTERSON, is a 51 M who presented to the emergency department at [facility] with shortness of breath. Patient reported that it started approximately yesterday morning and had progressively worsened. Its exacerbated by lying flat but he denies any fever or chills, coughing that is associated or any sick exposures. He had diarrhea last Sunday which caused him to miss dialysis but did have dialysis on Sunday however he does not feel any more fluid was pulled than typical. His diarrhea has since resolved. He receives dialysis typically on Sunday, Sunday, and Fridays. Per discussion with nephrology the patient does tend to not watch his fluid intake and tends to be markedly volume overloaded by Sunday. Upon presentation his temperature was 96.4, heart rate 106, blood pressure was 215/116 with recheck after hydralazine was 164/93, respiratory rate was 21 and his oxygen saturations were 93% on room air. The patient is typically not O2 dependent. His CBC showed a chronic stable anemia but was otherwise unremarkable. His BMP showed normal electrolytes however his BUN was 74 and his creatinine was 14.50. His initial troponin was 61 and delta troponin was 64 with a third troponin being 57. His chest x-ray showed patchy bilateral opacities as well as mild left subsegmental atelectasis. His EKG was normal sinus rhythm without any ST-T wave changes and a rate of 100. [facility] Medical History Anemia of chronic renal failure, stage 4 (severe) Degenerative disc disease, cervical Demand ischemia Diabetes mellitus, type II, insulin dependent Diabetic polyneuropathy (04/2017) Elevated troponin Essential (primary) hypertension GERD (gastroesophageal reflux disease) Hypotension Morbid obesity Non-ischemic cardiomyopathy Obstructive sleep apnea on CPAP Problem with dialysis access Syncope (07/2018) Systolic and diastolic CHF, acute Home Medications aspirin 81 mg chewable tablet 81 mg PO DAILY HEART 08/10/17 [History Last Taken 08/08/18] omeprazole 20 mg capsule,delayed release 20 mg PO DAILY gerd 08/08/18 [History Last Taken 08/08/18] blood-glucose meter (FreeStyle [place] Lite kit) #1 ea 12/22/19 [Rx Last Taken Unknown] lancets 28 gauge (FreeStyle Lancets) #100 ea 12/22/19 [Rx Last Taken Unknown] pen needle, diabetic 32 gauge x 5/32 (BD Ultra-Fine [place] Pen Needle) #400 ea 12/22/19 [Rx Last Taken Unknown] insulin aspart U-100 100 unit/mL (3 mL) subcutaneous pen (Novolog Flexpen U-100 Insulin aspart) 15 unit (0.15 mL) subcut TID #60 mL 12/29/19 [Rx Last Taken Unknown] insulin syringe-needle U-100 0.5 mL 31 gauge x 5/16 (BD Insulin Syringe Ultra-Fine) #100 ea 12/29/19 [Rx Last Taken Unknown] albuterol sulfate 90 mcg/actuation aerosol inhaler 2 puff inhalation Q6H PRN Shortness Of Breath Or Wheezing 07/26/21 [History Last Taken Unknown] ammonium lactate 12 % lotion 1 applic topical BID 07/26/21 [History Last Taken Unknown] atorvastatin 80 mg tablet 80 mg PO QHS 07/26/21 [History Last Taken Unknown] carvedilol 25 mg tablet 25 mg PO BID BP 07/26/21 [History Last Taken 08/18/21] ezetimibe 10 mg tablet 10 mg PO DAILY 07/26/21 [History Last Taken Unknown] gabapentin 100 mg capsule 200 mg PO QHS 07/26/21 [History Last Taken Unknown] insulin detemir U-100 100 unit/mL (3 mL) subcutaneous pen (Levemir FlexTouch U-100 Insulin) 40 unit subcut QHS 07/26/21 [History Last Taken Unknown] losartan 50 mg tablet 50 mg PO DAILY 07/26/21 [History Last Taken 08/18/21] chlorthalidone 25 mg tablet 25 mg PO DAILY #90 tabs 09/30/21 [Rx Last Taken Unknown] sucroferric oxyhydroxide 500 mg chewable tablet (Velphoro) 1,500 mg PO TID 02/20/22 [History Last Taken Unknown] Allergy/AdvReac Type Severity Reaction Status Date / Time liraglutide [From Victoza] Allergy Unknown unknown Verified 02/20/22 04:27 NSAIDS (Non-Steroidal AdvReac Severe Renal Verified 02/20/22 04:27 Anti-Inflamma failure BLANCA Inhibitors AdvReac Intermediate cough Verified 02/20/22 04:27 Family History Mother Hypertension Grandmother Aneurysm Surgical History History of angioplasty of peripheral vessel (07/2021) Presence of surgically created arteriovenous shunt for hemodialysis (07/2017) Social History (Updated 02/20/22 @ 14:[address] Yoselin King DO) household members: spouse housing: house Smoking Status: Never smoker alcohol intake: never substance use type: does not use ROS Constitutional Constitutional: Reports change in weight; Denies anorexia, chills, fatigue, fever(s), malaise, night sweats, weakness or other Eyes Eyes: Denies blurry vision, change in eye color, change in vision, discharge from eye(s), double vision, erythema, eye pain, loss of vision or other ENT HEENT: Denies abnormal hearing, dysphagia, ear pain, epistaxis, headache(s), hearing loss, nasal congestion, nasal discharge, post nasal drip, sinus pressure, sore throat or other Cardiovascular Cardiovascular: Reports chest pain, dyspnea on exertion and orthopnea; Denies claudication, edema, lightheadedness, palpitations, paroxysmal nocturnal dyspnea, rapid heart rate, syncope or other Respiratory/Chest Respiratory/Chest: Reports dyspnea, shortness of breath at rest and shortness of breath with exertion; Denies cough, excessive phlegm production, hemoptysis, productive cough, wheezing or other Gastrointestinal Gastrointestinal: Denies abdominal pain, coffee ground emesis, constipation, diarrhea, dyspepsia, hematemesis, hematochezia, loose stools, melena, nausea, vomiting or other Genitourinary Genitourinary: Denies burning urination, difficulty urinating, dysuria, hematuria, nocturia, urinary frequency, urinary hesitancy, urinary incontinence, urinary urgency or other Musculoskeletal Musculoskeletal: Reports joint pain and joint stiffness; Denies arthralgias, back pain, joint swelling, myalgias, neck pain or other Neurologic Neurologic: Denies abnormal gait, abnormal speech, confusion, disequilibrium, dizziness, focal weakness, headache(s), numbness, paresthesias, seizure-like activity, seizures, syncope, tingling, tremor(s) or other Psychiatric Psychiatric: Denies anxiety, depression, homicidal ideation, suicidal ideation or other Endocrine Endocrinology: Denies change in body appearance, cold intolerance, excessive sweating, heat intolerance, polydipsia, polyuria or other Hematologic/Lymphatic Hematologic/Lymphatic: Denies anemia, easy bleeding, easy bruising, lymphadenopathy or other Allergic/Immunologic Allergic/Immunologic: Denies rhinitis, hives, eczemia, asthma or other Vital Signs Vital Signs Vital Signs: 02/20/22 04:23 02/20/22 04:26 02/20/22 04:29 Temperature 96.4 F L Temperature Source Temporal Pulse Rate 106 H Respiratory Rate 21 H Respiratory Effort Short of Breath Labored Respiratory Depth Respiratory Pattern Blood Pressure 215/116 H Blood Pressure Mean 149 Blood Pressure Source Blood Pressure Position Blood Pressure Location Pulse Ox 83 92 Oxygen Delivery Method Room Air Nasal Cannula Nasal Cannula Oxygen Flow Rate (L/min) 3 3 02/20/22 04:32 02/20/22 04:35 02/20/22 04:35 Temperature Temperature Source Pulse Rate 101 H Respiratory Rate 22 H 26 H Respiratory Effort Short of Breath Respiratory Depth Shallow Respiratory Pattern Tachypnea Tachypnea Blood Pressure Blood Pressure Mean Blood Pressure Source Blood Pressure Position Blood Pressure Location Pulse Ox 95 96 Oxygen Delivery Method Nasal Cannula Nasal Cannula Oxygen Flow Rate (L/min) 3 3 02/20/22 05:34 02/20/22 06:43 02/20/22 07:24 Temperature 96.4 F L Temperature Source Temporal Pulse Rate 104 H 106 H Respiratory Rate 18 Respiratory Effort Respiratory Depth Respiratory Pattern Blood Pressure 164/93 H 152/97 H 161/94 H Blood Pressure Mean 116 115 116 Blood Pressure Source Blood Pressure Position Blood Pressure Location Pulse Ox 97 94 Oxygen Delivery Method Room Air Nasal Cannula Oxygen Flow Rate (L/min) 3 02/20/22 08:57 02/20/22 09:29 02/20/22 08:50 Temperature 96.5 F L Temperature Source Oral Pulse Rate 104 H 106 H Respiratory Rate 18 Respiratory Effort Respiratory Depth Respiratory Pattern Blood Pressure 179/99 H Blood Pressure Mean 125 Blood Pressure Source Monitor Blood Pressure Position Semi-Fowlers Blood Pressure Location Right Arm Pulse Ox 98 95 Oxygen Delivery Method Nasal Cannula Nasal Cannula Oxygen Flow Rate (L/min) 4 3 02/20/22 08:45 Temperature Temperature Source Pulse Rate Respiratory Rate Respiratory Effort Normal Non-Labored Respiratory Depth Normal Respiratory Pattern Normal Blood Pressure Blood Pressure Mean Blood Pressure Source Blood Pressure Position Blood Pressure Location Pulse Ox Oxygen Delivery Method Room Air Oxygen Flow Rate (L/min) Weight Weight: 135.1 kg Body Mass Index (BMI) 43.9 Physical Exam Const Constitutional Narrative: Morbidly obese, middle-aged -[place] male sitting up in a chair at the bedside, appears comfortable nontoxic, is at the bedside, patient currently on supplemental oxygen but appears comfortable General Appearance: cooperative HEENT normocephalic, head/scalp atraumatic, hearing grossly normal bilaterally and moist oral mucous membranes HEENT Narrative: Mallampati 3-4, no thrush, dentition is good Eyes PERRL and EOMs intact bilaterally Eyes Narrative: Mild conjunctival pallor Resp normal respiratory effort, no retractions and no use of accessory muscles Resp Narrative: Diminished diffusely with crackles at bases, no signs of respiratory extremis and effort is normal at this time however he is on 3 L Auscultation: crackles; Negative for rhonchi or wheezes Cardio regular rate, regular rhythm, S1 normal heart sound, S2 normal heart sound, no murmurs, no rub and no clicks Cardio Narrative: S4 gallop GI normal to inspection, nondistended, normoactive bowel sounds, soft to palpation and non-tender GI Narrative: Large protuberant abdomen Extremity no clubbing, cyanosis or edema Extremity Narrative: 2+ pedal pulses, left upper extremity fistula with bruit and thrill Neuro oriented x3, moves all extremities and no focal motor deficits Speech: speech normal Psych affect normal Psych Narrative: Very pleasant and appropriately interactive Results Lab / Micro Data Attestation: I reviewed the patient's lab results. Result Diagrams: 02/20/22 04:35 02/20/22 05:47 Labs: Laboratory Results - last 24 hr 02/20/22 04:35: WBC 9.0, RBC 3.71 L, Hgb 10.6 L, Hct 32.4 L, MCV 87.3, MCH 28.6, MCHC 32.7, RDW Std Deviation 43.3, RDW Coeff of Kyle 13.6, Plt Count 344, MPV 9.7, Immature Gran % (Auto) 0.300, Neut % (Auto) 64.7, Lymph % (Auto) 24.2, [place] % (Auto) 7.5, Eos % (Auto) 2.7, Baso % (Auto) 0.6, Absolute Neuts (auto) 5.8, Absolute Lymphs (auto) 2.17, Nucleated RBC % 0 02/20/22 04:35: Sodium Cancelled, Potassium Cancelled, Chloride Cancelled, Carbon Dioxide Cancelled, Anion Gap Cancelled, BUN Cancelled, Creatinine Cancelled, Estim Creat Clear Calc Cancelled, Est GFR (MDRD) Af Amer Cancelled, Est GFR (MDRD) Non-Af Cancelled, BUN/Creatinine Ratio Cancelled, Glucose Cancelled, Calcium Cancelled, Troponin I High Sens Cancelled 02/20/22 05:47: Sodium 139, Potassium 4.9, Chloride 101, Carbon Dioxide 25.0, Anion Gap 13, BUN 74 H, Creatinine 14.50 H*, Estim Creat Clear Calc 6.03, Est GFR (MDRD) Af Amer 5 L, Est GFR (MDRD) Non-Af 4 L, BUN/Creatinine Ratio 5.1 L, Glucose 141 H, Calcium 9.0, Troponin I High Sens 61 02/20/22 08:51: Troponin I High Sens 64 02/20/22 11:28: POC Glucose 212 H 02/20/22 11:42: Troponin I High Sens 57 Micro: Microbiology 02/20/22 09:22 Mucosa - Nose Respiratory Panel (PCR) - Final 02/20/22 07:39 Urine, Random Legionella Antigen - Final 02/20/22 07:39 Urine, Random Streptococcus pneumoniae Antigen (M - Final 02/20/22 04:41 Nasal Secretion SARS-CoV-2 & FLU Antigen (Rapid) - Final Rhythm Strip Rhythm Strip: Sinus Rhythm Rate: 100 Ectopy: None Radiology Impression Chest X-Ray 02/20/22 04:55 IMPRESSION: Patchy right basilar opacity concerning for pneumonia in the appropriate setting. Radiographic follow-up recommended after treatment to ensure resolution. Mild left basilar subsegmental atelectasis. Electronically Signed: Audi Regalado MD at 5:41 EDT , Assessment & Plan Assessment/Plan (1) Hypoxemia: (2) Chest tightness: (3) Hypertensive urgency: PLAN: Plan Hypoxia -Appears to be related to volume overload -We will cycle cardiac enzymes this patient did have some chest tightness -Missed dialysis last Sunday -Suspect dry weight may need to come down--> discussed with nephrology and they indicate patient is fairly noncompliant especially on weekends so he tends to get volume overloaded -Nephrology plans on scheduling extra dialysis sessions during the week -We will check echocardiogram given the fact that he came in with significantly elevated blood pressure as well to ensure stability -Last echo was done in 2019 and demonstrated mild concentric LVH, moderately dilated LV with an EF of 45%, moderate global hypokinesis, stage I diastolic dysfunction and a right ventricular systolic pressure of 35 mmHg -Continue supplemental oxygen and wean as able -If able to wean completely by 02/21/2022 may be able to discharge home Hypertensive urgency -We will continue home medication -Dialysis -As needed hydralazine for systolic pressure greater than 160 HFrEF -Decompensated -Continue dialysis as above for volume management -Nephrology consulted -Continue home chronic medications -Continue home aspirin End-stage renal disease-HD dependent -Left upper extremity fistula with bruit and thrill -HD later today -Continue home chronic medications -Nephrology consult Hypertension -Continue home carvedilol -Continue home losartan -Continue home chlorthalidone as patient does make some urine -Monitor blood pressure for need of additional medications for blood pressure control DM-2 -Continue home Levemir 40 units nightly -Continue home Humalog 15 units 3 times daily with meals -Sliding scale insulin -Accu-Cheks 3 times daily GERD -Continue home omeprazole Chronic anemia secondary to renal disease -Continue home iron supplementation -Management per nephrology Diabetic neuropathy -Continue low-dose gabapentin at at bedtime 200 mg Hyperlipidemia -Continue home Zetia -Continue home atorvastatin VERÓNICA -Noncompliant with CPAP at baseline -Wears 12 cm of moderate water on his CPAP -Ordered CPAP for utilization here Morbid obesity -BMI 44 -Recommend weight loss -Complicates treatment, prognosis, outcomes DVT prophylaxis -Heparin 3 times daily CODE STATUS -Full code Charges/Coding Visit Charges Inpatient E&M: 02464 Init Hosp L2
[2022-02-20] MEDS: Heparin 10,000 UNITS/10 ML Vial 13000 UNITS IV (17:15)
[2022-02-20 17:20] LABS: Bedside Glucose 89 mg/dL (74-106)
--- NOTE | 2022-02-20 21:20 | DIALYSIS ---
HD x4 hours stopped 30 mins early, cramping mcc through treatment which subsided with decrease in UF goal but cramping returned on other side of abdomen last hour, UF 2600mL, CritLine maintained profile A-B, accessed via LFA AVF using 15G sharps, does have buttonholes, ran on a 2K bath, Heparin bolus given at start of treatment, needles pulled post treatment and stasis achieved without issue, possible IUF on Sunday
[2022-02-20] MEDS: Atorvastatin Calcium 80 MG Tablet PO (22:17)
[2022-02-20] MEDS: Gabapentin 100 MG Capsule 200 MG PO (22:17)
[2022-02-20] MEDS: Insulin Glargine-YFGN 100 UNIT/ML Pen 40 UNIT SC (22:18)
[2022-02-21] VITALS (8 sets, daily range): BP systolic 108–140; BP diastolic 76–92; PULSE 87–100; RESP 16–18; TEMP 36.1–36.8; O2SAT 94–98
[2022-02-21 00:31] LABS: Bedside Glucose 194 mg/dL (74-106)
[2022-02-21 06:28] LABS: Absolute Lymphocyte Count 1.84 X10^3/uL (0.83-4.51); Basophil# 0.05 X10^3/uL; Basophil% 0.6 % (0-1); Eosinophil# 0.23 X10^3/uL; Eosinophils% 2.9 % (0-5); Hematocrit 30.2 % (40-54); Hemoglobin 10.3 g/dL (13.0-16.5); Lymphocyte # 1.84 X10^3/ul (0.83-4.51); Lymphocyte % 23.3 % (19-41); Mean Corp Hgb Conc 34.1 g/dL (32-36); Mean Corpuscular Hgb 29.3 pg (27.0-32.0); Mean Platelet Vol. 9.5 fl (6.2-12.0); Monocyte# 0.73 X10^3/uL; Monocyte% 9.2 % (0-10); NRBC Flagged by Analyzer 0 % (0-5); Neutrophil # 5.03 X10^3/uL (2.7-7.7); Neutrophil % 63.6 % (47-70); Platelet Count 293 K/mm3 (150-450); RBC Distribution Width CV 13.3 % (11.6-14.6); RBC Distribution Width SD 41.8 fl (35.1-43.9); Red Blood Count 3.51 M/mm3 (4.6-6.2); White Blood Count 7.9 K/mm3 (4.4-11.0)
[2022-02-21 06:56] LABS: Phosphorus 7.6 mg/dL (2.5-4.9)
[2022-02-21 07:01] LABS: ALB/GLOB Ratio 0.8 RATIO (0.9-2.4); AST(SGOT) 10 U/L (15-37); Alanine Aminotransfer ALT/SGPT 18 U/L (16-61); Albumin, Serum 3.2 g/dL (3.2-5.0); Alkaline Phosphatase 53 U/L (45-117); Anion Gap 11 (5-15); BUN 46 mg/dL (7-18); BUN/Creat Ratio 4.6 RATIO (10-20); Calcium,Total 8.3 mg/dL (8.5-10.1); Chloride 97 mmol/L (98-107); EST Glomerular Filtration Rate 6 mL/min (>60); Est Glom Filt Rate - Afr Amer 7 mL/min (>60); Estimated Creatinine Clearance 8.65 ml/min; Globulin 3.8 g/dL (2.2-4.2); Glucose 72 mg/dL (74-106); Magnesium 2.1 mg/dL (1.6-2.6); Potassium 4.3 mmol/L (3.5-5.1); Sodium Level 136 mmol/L (136-145); Thyroid Stim Hormone (TSH) 1.48 uIU/mL (0.358-3.74)
[2022-02-21] MEDS: Heparin Injection (Vial) 5,000 UNIT/ML VIAL 5000 UNIT SC (07:03)
[2022-02-21 07:25] LABS: Bedside Glucose 77 mg/dL (74-106)
[2022-02-21 10:35] LABS: Bedside Glucose 85 mg/dL (74-106)
--- NOTE | 2022-02-21 10:57 | DS.PCM_ITS ---
Providers Date of Admission: 02/20/22 Date of Discharge: 02/21/22 Primary Care Physician: Dr. Norris Mcqueen MD Consultations 02/20/22 08:25 Consult: Nephrology Routine Consulting Provider: Jade Lamar Reason for Consult: ESRD-HD dependent EMERGENT Consult: No MD Notified: Yes Date Notified: 02/20/22 Time Notified: 07:12 Method of Notification: ED Physician Initiated Reason For Visit: ACUTE HYPOXIC RESPIRATORY FAILURE Diagnosis Discharge Diagnosis (1) Hypoxemia: Status: Acute Code(s): R09.02 - Hypoxemia (2) Chest tightness: Status: Acute Code(s): R07.89 - Other chest pain (3) Hypertensive urgency: Status: Acute Code(s): I16.0 - Hypertensive urgency Plan Hypoxia -Appears to be related to volume overload -We will cycle cardiac enzymes this patient did have some chest tightness -Missed dialysis last Sunday -Suspect dry weight may need to come down--> discussed with nephrology and they indicate patient is fairly noncompliant especially on weekends so he tends to get volume overloaded -Nephrology plans on scheduling extra dialysis sessions during the week -We will check echocardiogram given the fact that he came in with significantly elevated blood pressure as well to ensure stability -Last echo was done in 2019 and demonstrated mild concentric LVH, moderately dilated LV with an EF of 45%, moderate global hypokinesis, stage I diastolic dysfunction and a right ventricular systolic pressure of 35 mmHg -Continue supplemental oxygen and wean as able -If able to wean completely by 02/21/2022 may be able to discharge home Hypertensive urgency -We will continue home medication -Dialysis -As needed hydralazine for systolic pressure greater than 160 HFrEF -Decompensated -Continue dialysis as above for volume management -Nephrology consulted -Continue home chronic medications -Continue home aspirin End-stage renal disease-HD dependent -Left upper extremity fistula with bruit and thrill -HD later today -Continue home chronic medications -Nephrology consult Hypertension -Continue home carvedilol -Continue home losartan -Continue home chlorthalidone as patient does make some urine -Monitor blood pressure for need of additional medications for blood pressure control DM-2 -Continue home Levemir 40 units nightly -Continue home Humalog 15 units 3 times daily with meals -Sliding scale insulin -Accu-Cheks 3 times daily GERD -Continue home omeprazole Chronic anemia secondary to renal disease -Continue home iron supplementation -Management per nephrology Diabetic neuropathy -Continue low-dose gabapentin at at bedtime 200 mg Hyperlipidemia -Continue home Zetia -Continue home atorvastatin VERÓNICA -Noncompliant with CPAP at baseline -Wears 12 cm of moderate water on his CPAP -Ordered CPAP for utilization here Morbid obesity -BMI 44 -Recommend weight loss -Complicates treatment, prognosis, outcomes DVT prophylaxis -Heparin 3 times daily CODE STATUS -Full code Medications at Discharge Home Medications aspirin 81 mg chewable tablet 81 mg PO DAILY HEART 08/10/17 omeprazole 20 mg capsule,delayed release 20 mg PO DAILY gerd 08/08/18 blood-glucose meter (FreeStyle Carrington Lite kit) #1 ea 12/22/19 lancets 28 gauge (FreeStyle Lancets) #100 ea 12/22/19 pen needle, diabetic 32 gauge x 5/32 (BD Ultra-Fine [place] Pen Needle) #400 ea 12/22/19 insulin aspart U-100 100 unit/mL (3 mL) subcutaneous pen (Novolog Flexpen U-100 Insulin aspart) 15 unit (0.15 mL) subcut TID #60 mL 12/29/19 insulin syringe-needle U-100 0.5 mL 31 gauge x 5/16 (BD Insulin Syringe Ultra- Fine) #100 ea 12/29/19 albuterol sulfate 90 mcg/actuation aerosol inhaler 2 puff inhalation Q6H PRN Shortness Of Breath Or Wheezing 07/26/21 ammonium lactate 12 % lotion 1 applic topical BID 07/26/21 atorvastatin 80 mg tablet 80 mg PO QHS 07/26/21 carvedilol 25 mg tablet 25 mg PO BID BP 07/26/21 ezetimibe 10 mg tablet 10 mg PO DAILY 07/26/21 gabapentin 100 mg capsule 200 mg PO QHS 07/26/21 insulin detemir U-100 100 unit/mL (3 mL) subcutaneous pen (Levemir FlexTouch U- 100 Insulin) 40 unit subcut QHS 07/26/21 losartan 50 mg tablet 50 mg PO DAILY 07/26/21 chlorthalidone 25 mg tablet 25 mg PO DAILY #90 tabs 09/30/21 sucroferric oxyhydroxide 500 mg chewable tablet (Velphoro) 1,500 mg PO TID 02/20/22 Hospital Course Operations None Procedures 2-D Echocardiogram, EKG and - (Chest x-ray) Summary of Care Provided Minutes Spent on Discharge: 28 Hospital Course: Mr. Yung is a 51-year-old -[place]ub[place] male who presented to the emergency department [facility] with shortness of breath on 02/20/2022. The patient reported that it started the day prior to presentation in the morning and had progressively gotten worse. He reported that it was exacerbated by lying flat but denied any fever or chills, coughing, or sick exposures. He indicated he had diarrhea last Sunday and he missed dialysis but did have dialysis on Sunday. He indicated his diarrhea had since resolved. Per discussion with his activity therapy specialist prior to admission the nephrologists noted that the patient tends to not monitor his fluid intakes on the s and tends to be fairly volume overloaded on Sunday. Upon presentation his temperature was 96.4, heart rate 106, blood pressure was 215/116 with recheck after hydralazine was 164/93, respiratory rate was 21 and his oxygen saturations were 93% on room air.? The patient is typically not O2 dependent.? His CBC showed a chronic stable anemia but was otherwise unremarkable.? His BMP showed normal electrolytes however his BUN was 74 and his creatinine was 14.50.? His initial troponin was 61 and delta troponin was 64 with a third troponin being 57.? His chest x-ray showed patchy bilateral opacities as well as mild left subsegmental atelectasis.? His EKG was normal sinus rhythm without any ST-T wave changes and a rate of 100. With his blood pressure elevation and new shortness of breath we did repeat an echocardiogram with his previous being done in 2019 showing an EF of 45%. His echocardiogram this admission showed an EF of 50% with mild LVH and borderline global hypokinesis of the left ventricle. This overall is stable w hen compared to previous. A COVID-19 test was done and was negative. A respiratory viral panel was done and was negative. Strep pneumo and Legionella antigens were done and were negative. Overall it appears that his shortness of breath was most likely related to volume overload from dialysis. He also had no fever or white count. He was dialyzed on the evening of 02/20/2022 and his oxygen saturations improved and he was able to be on room air. Prior to discharge his oxygen saturation on room air was 95 to 98% and with ambulation he was 93%. He is not compliant on a regular basis with the CPAP at home and we strongly encourage this at the time of discharge. We also discussed volume re striction and salt restriction at the time of discharge as well. The patient voiced understanding and plans to find his CPAP once he gets home and wear it nightly. He is to proceed with his regularly scheduled dialysis of Sunday, Sunday, and Sunday. No medication changes were needed as his blood pressure dramatically improved with dialysis. He was discharged home in stable condition on 02/21/2022. He was asked to follow-up with his primary care physician within the next [address] Lamar from nephrology as previously scheduled. Discharge diagnoses: Acute hypoxia-resolved Hypertensive urgency-resolved [id number] End-stage renal disease-HD dependent Hypertension DM-2 GERD Chronic anemia secondary to renal disease Diabetic neuropathy Left hyperlipidemia VERÓNICA Morbid obesity Physical Exam Const alert, oriented x3, no apparent distress and well nourished Constitutional Narrative: Morbidly obese, middle-aged -[place] male sitting up in a chair at the bedside, appears comfortable nontoxic, is at the bedside, patient is on supplemental oxygen at 3 L however sats were 98%-oxygen removed and sats remained stable at 95 to 96% General Appearance: cooperative, comfortable, well kempt and well developed Orientation / Consciousness: awake, oriented to person, oriented to place and oriented to time Exam Limitations: no limitations Nutritional Appearance: morbidly obese HEENT normocephalic, head/scalp atraumatic, hearing grossly normal bilaterally and moist oral mucous membranes Resp normal respiratory effort, no retractions, no use of accessory muscles and clear to auscultation bilaterally Resp Narrative: Distant but clear Auscultation: Negative for crackles, rhonchi or wheezes Cardio regular rate, regular rhythm, S1 normal heart sound, S2 normal heart sound, no murmurs, no rub, no gallops and no clicks GI normal to inspection, nondistended, normoactive bowel sounds, soft to palpation and non-tender GI Narrative: Large protuberant abdomen Extremity no clubbing, cyanosis or edema Extremity Narrative: 2+ pedal pulses, left upper extremity fistula with bruit and thrill Neuro oriented x3, CN's II-XII intact bilaterally, moves all extremities and no focal motor deficits Speech: speech normal Psych affect normal Psych Narrative: Very pleasant and appropriately interactive Weight / BMI Weight Weight: 135.1 kg Body Mass Index (BMI) 43.9 ABG / Lab / Microbiology Data Result Diagrams: 02/21/22 04:48 02/21/22 04:48 Laboratory: Laboratory Results - last 24 hr 02/20/22 11:28: POC Glucose 212 H 02/20/22 11:42: Troponin I High Sens 57 02/20/22 16:56: POC Glucose 89 02/20/22 22:12: POC Glucose 194 H 02/21/22 04:48: WBC 7.9, RBC 3.51 L, Hgb 10.3 L, Hct 30.2 L, MCV 86.0, MCH 29.3, MCHC 34.1, RDW Std Deviation 41.8, RDW Coeff of Kyle 13.3, Plt Count 293, MPV 9.5, Immature Gran % (Auto) 0.400, Neut % (Auto) 63.6, Lymph % (Auto) 23.3, Perry % (Auto) 9.2, Eos % (Auto) 2.9, Baso % (Auto) 0.6, Absolute Neuts (auto) 5.0, Absolute Lymphs (auto) 1.84, Nucleated RBC % 0 02/21/22 04:48: Sodium 136, Potassium 4.3, Chloride 97 L, Carbon Dioxide 28.0, Anion Gap 11, BUN 46 H, Creatinine 10.10 H*, Estim Creat Clear Calc 8.65, Est GFR (MDRD) Af Amer 7 L, Est GFR (MDRD) Non-Af 6 L, BUN/Creatinine Ratio 4.6 L, Glucose 72 L, Calcium 8.3 L, Magnesium 2.1, Total Bilirubin 0.30, AST 10 L, ALT 18, Alkaline Phosphatase 53, Total Protein 7.0, Albumin 3.2, Globulin 3.8, Albumin/Globulin Ratio 0.8 L, TSH 1.48 02/21/22 04:48: Phosphorus 7.6 H 02/21/22 07:04: POC Glucose 77 02/21/22 10:01: POC Glucose 85 Microbiology: Microbiology 02/20/22 09:22 Mucosa - Nose Respiratory Panel (PCR) - Final 02/20/22 07:39 Urine, Random Legionella Antigen - Final 02/20/22 07:39 Urine, Random Streptococcus pneumoniae Antigen (M - Final 02/20/22 04:41 Nasal Secretion SARS-CoV-2 & FLU Antigen (Rapid) - Final Radiography Diagnostic Testing: Radiology Impression Echocardiogram 02/20/22 07:15 Interpretation Summary Normal LV size. Mild concentric left ventricular hypertrophy. Left ventricular systolic function is lower limits of normal. The estimated ejection fraction is 50 %. There is borderline global hypokinesis of the left ventricle. Ordering Physician: Yoselin King Referring Physician: Norris Mcqueen Performed By: Reza Groves RCS D/C Instructions Discharge Diet: Low fat / Low cholesterol, 1800 Calorie Control Diet, 8 Cup Fluid Restriction, 2000 mg Sodium Diet and Renal Diet Discharge Activity: Return to Normal Activity Return to work on: 02/22/22 Meaningful Use Info Meaningful Use Diagnoses (Choose all that apply): None applicable Discharge Plan Admission Admit Date/Time: 02/20/22 07:05 Primary Reason for Your Visit: Shortness of breath Attending Provider: Yoselin King Primary Care Provider: Norris Mcqueen Consulting Providers: Jade Lamar Discharge Orders/Prescriptions Prescriptions: Continued (DME) blood-glucose meter [FreeStyle Carrington Lite] Kit See Rx Instructions .ROUTE .MEDSUPPLY Qty: 1 0RF Rx Instructions: As directed (DME) pen needle, diabetic [BD Ultra-Fine [place] Pen Needle] 32 gauge x 5/32 needle See Rx Instructions .ROUTE .MEDSUPPLY Qty: 400 1RF Rx Instructions: 4 times daily (DME) lancets [FreeStyle Lancets] 28 gauge misc See Rx Instructions .ROUTE .MEDSUPPLY Qty: 100 5RF Rx Instructions: As directed chlorthalidone 25 mg tablet 25 mg PO DAILY Qty: 90 3RF losartan 50 mg tablet 50 mg PO DAILY atorvastatin 80 mg tablet 80 mg PO QHS ezetimibe 10 mg tablet 10 mg PO DAILY ammonium lactate 12 % lotion 1 applic topical BID gabapentin 100 mg capsule 200 mg PO QHS albuterol sulfate 90 mcg/actuation HFA aerosol inhaler 2 puff inhalation Q6H PRN (Reason: Shortness Of Breath Or Wheezing) Levemir FlexTouch U-100 Insuln 100 unit/mL (3 mL) insulin pen 40 unit subcut QHS carvedilol 25 mg tablet 25 mg PO BID Label Comments: HEART/BLOOD PRESSURE aspirin 81 MG tablet,chewable 81 mg PO DAILY Label Comments: ANTIPLATELET omeprazole 20 MG capsule,delayed release(DR/EC) 20 mg PO DAILY Label Comments: TAKE 1 CAPSULE BY MOUTH ONCE DAILY. Velphoro 500 mg tablet,chewable 1,500 mg PO TID Label Comments: CHEW & SWALLOW 3 TABLETS THREE TIMES A DAY WITH MEALS insulin aspart U-100 [Novolog Flexpen U-100 Insulin] 100 unit/mL (3 mL) insulin pen 15 unit SC TID Qty: 60 1RF (DME) insulin syringe-needle U-100 [BD Insulin Syringe Ultra-Fine] 0.5 mL 31 gauge x 5/16 syringe See Rx Instructions .ROUTE .MEDSUPPLY Qty: 100 0RF Rx Instructions: tid Referrals / Follow Up: Norris Mcqueen MD [Primary Care Provider] - Within 2 Weeks Jade Lamar MD [Med Staff - Consulting] - See Referral Note (As scheduled) Disposition Disposition (needs filled in before D/C Order can be placed): Home, Self Care Charges/Coding Visit Charges OBSV E&M: 52396 Observation care discharge
[2022-02-21] MEDS: SUCROFERRIC OXYHYDROXIDE 500 MG TAB.CHEW 1500 MG PO (12:59)
[2022-02-21] MEDS: Aspirin 81 MG TAB.CHEW PO (13:00)
[2022-02-21] MEDS: Carvedilol 25 MG Tablet 50 MG PO (13:00)
[2022-02-21] MEDS: Losartan Potassium 50 MG Tablet PO (13:00)
[2022-02-21] MEDS: Chlorthalidone 50 MG Tablet 25 MG PO (13:00)
[2022-02-21] MEDS: Pantoprazole Sodium 20 MG Tablet PO (13:00)
[2022-02-21] MEDS: Ezetimibe 10 MG Tablet PO (13:01)
[2022-02-21] MEDS: Insulin Lispro 100 UNIT/ML INSULN.PEN 15 UNIT SC (13:01)
[2022-02-21 13:25] LABS: Bedside Glucose 146 mg/dL (74-106)
--- NOTE | 2022-02-21 14:11 | NURSING ---
Charting reviewed with Vladimir Castro RN
--- NOTE | 2022-02-21 15:25 | PCM.PN.REN ---
Subjective Subjective No new complaints. Today he is off all oxygen. Breathing is back to baseline. Objective Data Objective Data Vital Signs: Vital Signs Temp Pulse Resp BP Pulse Ox O2 Del Method O2 Flow Rate 97.9 F 93 18 116/81 H 96 Room Air 2 02/21/22 12:45 02/21/22 12:45 02/21/22 12:45 02/21/22 12:45 02/21/22 12:45 02/21/22 12:45 02/21/22 07:36 FiO2 21 02/20/22 23:24 Oxygen Flow Rate (L/min) 2 Oxygen Delivery Method Room Air Weight: 135.1 kg Body Mass Index (BMI) 43.9 Intake & Output: Intake and Output for Last 24 Hours 02/19/22 02/20/22 02/21/22 23:59 23:59 23:59 Intake Total 1145 / 1145 240 / 240 Output Total 2600 / 2600 Balance -1455 / -1455 240 / 240 Lab / Micro Data Result Diagrams: 02/21/22 04:48 02/21/22 04:48 Labs: Laboratory Results - last 24 hr 02/20/22 16:56: POC Glucose 89 02/20/22 22:12: POC Glucose 194 H 02/21/22 04:48: WBC 7.9, RBC 3.51 L, Hgb 10.3 L, Hct 30.2 L, MCV 86.0, MCH 29.3, MCHC 34.1, RDW Std Deviation 41.8, RDW Coeff of Kyle 13.3, Plt Count 293, MPV 9.5, Immature Gran % (Auto) 0.400, Neut % (Auto) 63.6, Lymph % (Auto) 23.3, Edwards % (Auto) 9.2, Eos % (Auto) 2.9, Baso % (Auto) 0.6, Absolute Neuts (auto) 5.0, Absolute Lymphs (auto) 1.84, Nucleated RBC % 0 02/21/22 04:48: Sodium 136, Potassium 4.3, Chloride 97 L, Carbon Dioxide 28.0, Anion Gap 11, BUN 46 H, Creatinine 10.10 H*, Estim Creat Clear Calc 8.65, Est GFR (MDRD) Af Amer 7 L, Est GFR (MDRD) Non-Af 6 L, BUN/Creatinine Ratio 4.6 L, Glucose 72 L, Calcium 8.3 L, Magnesium 2.1, Total Bilirubin 0.30, AST 10 L, ALT 18, Alkaline Phosphatase 53, Total Protein 7.0, Albumin 3.2, Globulin 3.8, Albumin/Globulin Ratio 0.8 L, TSH 1.48 02/21/22 04:48: Phosphorus 7.6 H 02/21/22 07:04: POC Glucose 77 02/21/22 10:01: POC Glucose 85 02/21/22 12:58: POC Glucose 146 H Micro: Microbiology 02/20/22 09:22 Mucosa - Nose Respiratory Panel (PCR) - Final 02/20/22 07:39 Urine, Random Legionella Antigen - Final 02/20/22 07:39 Urine, Random Streptococcus pneumoniae Antigen (M - Final 02/20/22 04:41 Nasal Secretion SARS-CoV-2 & FLU Antigen (Rapid) - Final Rhythm Strip Rhythm Strip: Sinus Rhythm Rate: 100 Ectopy: None Physical Exam Narrative Alert awake oriented x 3 no obvious distress no pallor no icterus no JVD s1s2 no murmurs lungs clear abdomen soft no organomegaly no edema no cyanosis Assessment & Plan Assessment/Plan (1) Chronic kidney disease with end stage renal failure on dialysis: PLAN: ESRD, on hemodialysis. Was dialyzed yesterday. Removed about 2.5 L. Complains of significant cramping end of treatment. Today breathing is back to baseline. No oxygen supplements. No significant edema. Continue dialysis as per schedule. Discussed with hospitalist, possible discharge today PLAN: Plan No signs of infection.
== END 2022-02-21 11:01 | disposition home or self-care (01) ==
LOC: ED 06:39 → PCU 07:46
PROVIDERS: Admitting Provider Internal Medicine; Emergency Provider Emergency Medicine; PCP Family Medicine; Visit Provider Internal Medicine
DX: R09.02 Hypoxemia (principal); I13.2 Hypertensive heart and chronic kidney disease with heart failure and with stage 5 chronic kidney disease, or end stage renal disease; Z99.2 Dependence on renal dialysis; I50.41 Acute combined systolic (congestive) and diastolic (congestive) heart failure; I42.8 Other cardiomyopathies; E11.22 Type 2 diabetes mellitus with diabetic chronic kidney disease; E11.40 Type 2 diabetes mellitus with diabetic neuropathy, unspecified; N18.6 End stage renal disease; E66.01 Morbid (severe) obesity due to excess calories; Z68.41 Body mass index [BMI] 40.0-44.9, adult; Z79.4 Long term (current) use of insulin; R07.89 Other chest pain; K21.9 Gastro-esophageal reflux disease without esophagitis; Z79.82 Long term (current) use of aspirin; G47.33 Obstructive sleep apnea (adult) (pediatric); I16.0 Hypertensive urgency; D63.1 Anemia in chronic kidney disease; E78.5 Hyperlipidemia, unspecified; Z79.899 Other long term (current) drug therapy
CPT/HCPCS: 97802 ×2; 36415; 71045; 80048; 80053; 82962; 83735; 84100; 84443; 84484; 85025; 87428; 87449; 87633; 90937; 93005; 93306; 94640; 94660; 94762; 96365; 96366; 96367; 96372; 96375; 99218; 99251; 99285; J7050; Q9957; A4216; C8929; G0257; G0378; G0463; J2405

== ENCOUNTER 2022-04-11 10:13 | Day surgery (SDC) | payer MEDICAID, SELFPAY ==
[2022-04-11] VITALS (7 sets, daily range): BP systolic 94–127; BP diastolic 45–81; PULSE 85–92; RESP 16–18; TEMP 36.2–36.6; O2SAT 95–98; BMI 43.2
[2022-04-11] MEDS: Lactated Ringers 1,000 ML 15 ML IV (10:55)
[2022-04-11 11:20] LABS: Bedside Glucose 152 mg/dL (74-106)
--- NOTE | 2022-04-11 12:02 | OP.COLON_ITS ---
Patient Name: Carlton Yung Procedure Date: 04/11/2022 11:30 AM Date of : 1970 Age: 51 Procedure: Colonoscopy Indications: Screening for colorectal malignant neoplasm, pretransplant evaluation Providers: Andreina Agustin MD Referring MD: Andreina Agustin MD Medicines: See the Anesthesia note for documentation of the administered medications Patient Profile: Refer to note in patient chart for documentation of history and physical. Last Colonoscopy: none. The patient's first colonoscopy is today. Complications: No immediate complications. Procedure: Pre-Anesthesia Assessment: - see anesthesia note After I obtained informed consent, the scope was passed under direct vision. Throughout the procedure, the patient's blood pressure, pulse, and oxygen saturations were monitored continuously. The colonoscope was introduced through the anus and advanced to the cecum, identified by appendiceal orifice and ileocecal valve. The colonoscopy was performed without difficulty. The patient tolerated the procedure well. The quality of the bowel preparation was inadequate. Scope In: 11:35:36 AM Scope Withdrawal Time 0 hours 5 minutes 42 seconds Scope Out: 11:53:16 AM Total Procedure Duration Time 0 hours 17 minutes 40 seconds Findings: The perianal and digital rectal examinations were normal. Non-bleeding internal hemorrhoids were found. Impression: - Preparation of the colon was inadequate. - Non-bleeding internal hemorrhoids. - No specimens collected. Recommendation: - Repeat colonoscopy at the next available appointment for screening purposes. - Return to primary care physician PRN. - Continue present medications. Procedure Code(s): --- Professional --- 87479, Colonoscopy, flexible; diagnostic, including collection of specimen(s) by brushing or washing, when performed (separate procedure) Diagnosis Code(s): --- Professional --- K64.8, Other hemorrhoids Z12.11, Encounter for screening for malignant neoplasm of colon CPT copyright 2017 [employer]. All rights reserved. The codes documented in this report are preliminary and upon city administrator review may be revised to meet current compliance requirements. MD Andreina Sánchez MD 04/11/2022 12:01:36 PM This report has been signed electronically. Number of Addenda: 0 Note Initiated On: 04/11/2022 11:30 AM
--- NOTE | 2022-04-11 12:03 | OP.CCLET_ITS ---
04/11/2022 Norris Mcqueen MD Re : Colonoscopy procedure for Carlton Yung Dear Dr. Mcqueen This procedure was performed on Monday, April 11, 2022. My impressions and recommendations are as follows: Impressions : - Preparation of the colon was inadequate. - Non-bleeding internal hemorrhoids. - No specimens collected. Recommendations : - Repeat colonoscopy at the next available appointment for screening purposes. - Return to primary care physician PRN. - Continue present medications. My findings are described in the full procedure note, which is enclosed. If I can be of further assistance, please feel free to contact me at Doctor phone number(s): , Work: . Sincerely, MD Andreina Sánchez MD 04/11/2022 12:01:36 PM This report has been signed electronically.
== END 2022-04-11 13:19 | disposition home or self-care (01) ==
LOC: SDC 10:14 → AC 10:16
PROVIDERS: PCP Family Medicine; Referring Provider Surgery; Visit Provider Surgery
PROC: 0DJD8ZZ Inspection of Lower Intestinal Tract, Via Natural or Artificial Opening Endoscopic (ICD-10-PCS; CPT 45378; principal; 2022-04-11 11:20)
DX: Z12.11 Encounter for screening for malignant neoplasm of colon (principal); I13.2 Hypertensive heart and chronic kidney disease with heart failure and with stage 5 chronic kidney disease, or end stage renal disease; I50.9 Heart failure, unspecified; E11.22 Type 2 diabetes mellitus with diabetic chronic kidney disease; E11.40 Type 2 diabetes mellitus with diabetic neuropathy, unspecified; N18.4 Chronic kidney disease, stage 4 (severe); E66.01 Morbid (severe) obesity due to excess calories; Z76.82 Awaiting organ transplant status; K64.8 Other hemorrhoids; G47.33 Obstructive sleep apnea (adult) (pediatric); E78.2 Mixed hyperlipidemia
CPT/HCPCS: 45378; 82962; J7050; J7120; J2405

== ENCOUNTER 2022-06-06 10:21 | Day surgery (SDC) | payer MEDICAID, SELFPAY ==
--- NOTE | 2022-06-06 10:40 | PCM.HP.BLA ---
History and Physical Date of Admission: 06/06/22 Visit Reasons:?FISTULAGRAM Chief Complaint: fistulagram Is patient in pain?: No Allergies liraglutide [From Victoza] Allergy (Unknown, Verified 05/25/22 10:03) unknownNSAIDS (Non-Steroidal Anti-Inflamma Adverse Reaction (Severe, Verified 05/25/22 10:03) Renal failureACE Inhibitors Adverse Reaction (Intermediate, Verified 05/25/22 10:03) cough Medications aspirin 81 mg chewable tablet 81 mg PO DAILY HEART 08/10/17 [History Confirmed 05/25/22] omeprazole 20 mg capsule,delayed release 20 mg PO DAILY gerd 08/08/18 [History Confirmed 05/25/22] blood-glucose meter (FreeStyle [place] Lite kit) #1 ea 12/22/19 [Rx Confirmed 05/25/22] lancets 28 gauge (FreeStyle Lancets) #100 ea 12/22/19 [Rx Confirmed 05/25/22] pen needle, diabetic 32 gauge x 5/32 (BD Ultra-Fine [place] Pen Needle) #400 ea 12/22/19 [Rx Confirmed 05/25/22] insulin aspart U-100 100 unit/mL (3 mL) subcutaneous pen (Novolog FlexPen U-100 Insulin aspart) 15 unit (0.15 mL) subcut TID #60 mL 12/29/19 [Rx Confirmed 05/25/22] insulin syringe-needle U-100 0.5 mL 31 gauge x 5/16 (BD Insulin Syringe Ultra-Fine) #100 ea 12/29/19 [Rx Confirmed 05/25/22] albuterol sulfate 90 mcg/actuation aerosol inhaler 2 puff inhalation Q6H PRN Shortness Of Breath Or Wheezing 07/26/21 [History Confirmed 05/25/22] ammonium lactate 12 % lotion 1 applic topical BID 07/26/21 [History Confirmed 05/25/22] atorvastatin 80 mg tablet 80 mg PO QHS 07/26/21 [History Confirmed 05/25/22] carvedilol 25 mg tablet 25 mg PO BID BP 07/26/21 [History Confirmed 05/25/22] ezetimibe 10 mg tablet 10 mg PO DAILY 07/26/21 [History Confirmed 05/25/22] gabapentin 100 mg capsule 200 mg PO QHS 07/26/21 [History Confirmed 05/25/22] insulin detemir U-100 100 unit/mL (3 mL) subcutaneous pen (Levemir FlexTouch U-100 Insulin) 40 unit subcut QHS 07/26/21 [History Confirmed 05/25/22] losartan 50 mg tablet 50 mg PO DAILY 07/26/21 [History Confirmed 05/25/22] chlorthalidone 25 mg tablet 25 mg PO DAILY #90 tabs 09/30/21 [Rx Confirmed 05/25/22] sucroferric oxyhydroxide 500 mg chewable tablet (Velphoro) 1,500 mg PO TID 02/20/22 [History Confirmed 05/25/22] PFSH Medical History? Anemia of chronic renal failure, stage 4 (severe) Cardiology follow-up encounter Chronic kidney disease with end stage renal failure on dialysis COPD (chronic obstructive pulmonary disease) CPAP (continuous positive airway pressure) dependence Degenerative disc disease, cervical Demand ischemia Diabetes Diabetes mellitus, type II, insulin dependent Diabetic polyneuropathy (04/2017) Elevated troponin Essential (primary) hypertension Fistula GERD (gastroesophageal reflux disease) High cholesterol History of CHF (congestive heart failure) History of echocardiogram History of stress test Hypertension Hypotension Insulin dependent diabetes mellitus Leg cramps Morbid obesity Non-ischemic cardiomyopathy Non-smoker Obstructive sleep apnea on CPAP Problem with dialysis access Sleep apnea Syncope (07/2018) Systolic and diastolic CHF, acute Wears glasses Wears partial dentures Surgical History? History of angioplasty of peripheral vessel (07/2021) Presence of surgically created arteriovenous shunt for hemodialysis (07/2017) Family History? Mother HypertensionGrandmother Aneurysm Social History? household members:? spouse housing:? house Smoking Status:? Never smoker alcohol intake:? never substance use type:? does not use HPI HPI Surgical H&P: Yes HPI: Patient is a 51 y/o M I am following for decreased clearance and difficulty with cannulation. Patient has a left forearm radiocephalic arteriovenous fistula. Patient denies any pain/discomfort and access bleeding after treatment. Patient's last fistulogram was on 09/20/[address] Gutierrez. Findings included 2 areas of high-grade stenosis, 70-80% stenosis within 6 cm proximal of the anastomosis. An 8x 80 [place] angioplasty was successfully performed. Patient is maintained on a daily aspirin. Patient dialyzes M,W and F. ROS General General: No weight change, appetite, fatigue, colon cancer, breast cancer or weakness HEENT HEENT: No difficulty swallowing, eye injury, eye surgery, swollen glands or hoarseness Endo Endocrine: Yes diabetes mellitus; No thyroid disease, thyroid cancer, Hair loss, heat intolerance or cold intolerance Skin Skin: No rash or changing moles Musc Musculoskeletal: No back problems, arthritis, rheumatoid arthritis, gout or joint pain Cardio Cardiovascular: Yes high blood pressure; No murmur, pacemaker, heart disease, atrial fibrillation, heart attack, heart stent, palpitations, shortness of breat with exertion or chest pain Psych Psychiatric: No depression, anxiety or hearing voices Resp Respiratory: No shortness of breath, Yes sleep apnea, No cough, No COPD, No asthma, No emphysema and No wheezing Gastro Gastrointestinal: No abdominal pain, No nausea or vomiting, No diarrhea, No constipation, No blood in stool, Yes acid reflux, No hemorrhoids, No ulcers, No gallbladder problem and No black,tarry stools Atilio Hematologic: No blood thinners, No blood disorders, No bleeding, No anemia and No blood clots Neuro Neurologic: No system reviewed and no additional complaints, except as documented, No as per HPI, No abnormal gait, No abnormal hearing, No abnormal movements, No abnormal speech, No behavioral changes, No burning sensations, No confusion, No convulsions, No disequilibrium, No dizziness, No localized weakness, No frequent falls, No headache(s), No lack of coordination, No loss of vision, No memory loss, No numbness, No other visual disturbances, No radicular pain, No restless legs, No sensory deficit, No syncope, No tingling, No tremor(s), No weakness and No other Exam Const General: cooperative, healthy appearing, comfortable and no acute distress [facility] Head: normal to inspection Eyes General: appearance normal, both eyes and all related structures Neck Neck: normal visual inspection Neck mass: No Resp Effort & Inspection: normal respiratory effort Auscultation: clear to auscultation bilaterally Cardio Rate: tachycardic Rhythm: regular rhythm GI Inspection: normal to inspection and obesity Palpation: soft Musc Cervical Spine: normal cervical lordosis Skin General: no rashes or lesions noted Neuro General: no focal motor deficits and CN's II-XI intact bilaterally Extrem Other: Left forearm AV fistula- good pulse, diminished bruit and thrill between access sites. Psych Appearance: grossly normal Affect: normal affect Assessment and Plan Assessment and Plan (1) Problem with dialysis access: ?Status:?Acute ?Plan: Dr. Gutierrez will plan to perform a non-urgent left forearm fistulogram. Procedure details, risks and benefits have been discussed with the patient. Patient has had the opportunity to ask and have questions answered. Patient verbally understands and agrees with the plan. Patient may continue on his aspirin for the procedure I have examined the patient and the H&P has been reviewed. There are no clinical changes since date of exam. Aguilar Gutierrez M.D., F.A.C.S.
[2022-06-06 11:26] LABS: Hematocrit 33.9 % (40-54); Hemoglobin 11.3 g/dL (13.0-16.5); Mean Corp Hgb Conc 33.3 g/dL (32-36); Mean Corpuscular Hgb 29.5 pg (27.0-32.0); Mean Corpuscular Volume 88.5 fL (80-94); Mean Platelet Vol. 9.3 fl (6.2-12.0); Platelet Count 271 K/mm3 (150-450); RBC Distribution Width CV 13.8 % (11.6-14.6); RBC Distribution Width SD 44.8 fl (35.1-43.9); Red Blood Count 3.83 M/mm3 (4.6-6.2); White Blood Count 6.4 K/mm3 (4.4-11.0)
[2022-06-06 11:55] LABS: Anion Gap 10 (5-15); BUN 49 mg/dL (7-18); BUN/Creat Ratio 4.3 RATIO (10-20); Calcium,Total 9.7 mg/dL (8.5-10.1); Chloride 97 mmol/L (98-107); EST Glomerular Filtration Rate 5 mL/min (>60); Est Glom Filt Rate - Afr Amer 6 mL/min (>60); Estimated Creatinine Clearance 7.92 ml/min; Glucose 137 mg/dL (74-106); Potassium 5.2 mmol/L (3.5-5.1); Sodium Level 137 mmol/L (136-145)
--- NOTE | 2022-06-06 12:35 | OP.PCM_ITS ---
Report of Operation Date of Procedure: 06/06/22 Pre-Operative Diagnosis: Diminished flow left forearm radiocephalic arterioveno us hemodialysis fistula Post-Operative Diagnosis: Fistula high-grade 80% venous stenosis Surgery/Procedure Performed:: Left upper extremity fistulogram with 8 x 2 conquest angioplasty Description of Surgical Findings:: Timeout informed consent was obtained. 51-year-old gentleman was taken to the special procedures lab placed on the table the left upper extremity was sterilely prepped and draped he received 50 mcg of fentanyl and 2 mg Versed is intravenous sedation under ultrasound guidance closer to the antecubital space 2% lidocaine was instilled on ultrasound inspection and a micropuncture needle inserted micropuncture wire inserted became evident that I was above the branch point so I removed the wire and needle we localized slightly more distally in the forearm used ultrasound and 2% lidocaine and then a micropuncture needle and wire this time I could advance the sheath using 035 Glidewire and guide a 4 Green[place]ic glide cath down to the arterial anastomotic area but despite multiple multiple attempts I could not get the wire to go into the radial artery proximal to the anastomosis I did parked the glide cath at the anastomosis and used Isovue contrast to detect that there was a high-grade 80% stenosis approximately 6 cm from the anastomosis. Set a slight curvature of the vein. Then placed a 8 x 2 conquest balloon and balloon angioplasty performed 2 different locations in this spot all the way up to 35 sybil of pressure and held for the longest at 3 minutes. Final imaging demonstrated marked improvement. I then finished the fistulogram for the upper forearm and upper arm. The sheath was then removed 2 sutures of 4-0 nylon was placed. The fistula appeared to have a good pulse thr ill and bruit Images demonstrated a left forearm radiocephalic arteriovenous fistula. The anastomosis appears to be widely patent. The inflow appears to be patent but I could not get wire access. Approximately 6 cm from the origin there is a 80% stenosis over 2 cm in the cephalic vein that resolved with angioplasty. At the antecubital area there is cross over the median cubital veins with some moderate 50% stenosis in one of the outflow tracts but this could be spasm related to the access sheath. The upper arm cephalic and basilic veins have good outflow as and there is good central venous outflow. Impression: Successfully treated left forearm radiocephalic arteriovenous fistula with resolved venous stenosis. Aguilar Gutierrez M.D., F.A.C.S. Surgeon: Aguilar Gutierrez Type of Anesthesia: IV Sedation and Local
== END 2022-06-06 13:40 | disposition home or self-care (01) ==
PROVIDERS: PCP Family Medicine; Referring Provider Surgery; Visit Provider Surgery
DX: T82.858A Stenosis of other vascular prosthetic devices, implants and grafts, initial encounter (principal); Z99.2 Dependence on renal dialysis; I50.40 Unspecified combined systolic (congestive) and diastolic (congestive) heart failure; I13.0 Hypertensive heart and chronic kidney disease with heart failure and stage 1 through stage 4 chronic kidney disease, or unspecified chronic kidney disease; E11.22 Type 2 diabetes mellitus with diabetic chronic kidney disease; E11.42 Type 2 diabetes mellitus with diabetic polyneuropathy; N18.4 Chronic kidney disease, stage 4 (severe); E66.01 Morbid (severe) obesity due to excess calories; Z79.4 Long term (current) use of insulin; Y82.8 Other medical devices associated with adverse incidents; D63.1 Anemia in chronic kidney disease; Z79.899 Other long term (current) drug therapy; Z79.82 Long term (current) use of aspirin; K21.9 Gastro-esophageal reflux disease without esophagitis; E78.00 Pure hypercholesterolemia, unspecified; G47.33 Obstructive sleep apnea (adult) (pediatric)
CPT/HCPCS: 36902; 76937; 80048; 85027; 99152; 99153; J7040; Q9967; C1725; C1769

== ENCOUNTER 2022-07-29 08:43 | Emergency (ER) | payer MEDICAID, SELFPAY ==
[2022-07-29] VITALS (7 sets, daily range): BP systolic 143–177; BP diastolic 92–117; PULSE 93–103; RESP 16–27; TEMP 36.2; O2SAT 94–98; BMI 41.6
--- NOTE | 2022-07-29 08:59 | RAD_ITS ---
HISTORY: SOB. TECHNIQUE: XR Chest 1 View. COMPARISON: 02/20/2022. FINDINGS: CARDIOMEDIASTINAL BORDERS: Cardiac silhouette within normal limits in size. Mediastinal contour unremarkable. LUNGS: Small calcified granuloma in the left upper lobe and mild linear scarring in the left midlung unchanged. PLEURA: No pleural effusion or pneumothorax seen. OSSEOUS STRUCTURES: Unremarkable. RAD/Chest 1 View (Portable) IMPRESSION: No acute cardiopulmonary process identified. Electronically Signed: Magalys Valentin MD at 10:37 EDT ,
--- NOTE | 2022-07-29 09:23 | EKG12_ITS ---
Test Reason : SOB Blood Pressure : / mmHG Vent. Rate : 096 BPM Atrial Rate : 096 BPM P-R Int : 138 ms QRS Dur : 090 ms QT Int : 384 ms P-R-T Axes : 048 -20 053 degrees QTc Int : 485 ms Normal sinus rhythm Minimal voltage criteria for LVH, may be normal variant ( R in aVL ) Nonspecific ST and T wave abnormality Prolonged QT Abnormal ECG Confirmed by TOMI WILLETT, JULIO ([id number]), visual effects editor JEF MATIAS ([id number]) on 07/31/2022 11:16:09 AM Referred By: LILLIAN Confirmed By:RIRI KRISHNA MD
[2022-07-29 09:46] LABS: Absolute Lymphocyte Count 1.12 X10^3/uL (0.83-4.51); Absolute Neutrophil Count 6.5 X10^3/uL (2.0-7.7); Basophil# 0.04 X10^3/uL; Basophil% 0.5 % (0-1); Eosinophil# 0.13 X10^3/uL; Eosinophils% 1.5 % (0-5); Hematocrit 34.7 % (40-54); Hemoglobin 11.5 g/dL (13.0-16.5); Lymphocyte # 1.12 X10^3/ul (0.83-4.51); Lymphocyte % 12.9 % (19-41); Mean Corp Hgb Conc 33.1 g/dL (32-36); Mean Corpuscular Hgb 30.3 pg (27.0-32.0); Mean Corpuscular Volume 91.3 fL (80-94); Mean Platelet Vol. 9.4 fl (6.2-12.0); Monocyte# 0.83 X10^3/uL; Monocyte% 9.6 % (0-10); NRBC Flagged by Analyzer 0 % (0-5); Neutrophil % 75.2 % (47-70); Platelet Count 283 K/mm3 (150-450); RBC Distribution Width CV 13.8 % (11.6-14.6); RBC Distribution Width SD 46.9 fl (35.1-43.9); White Blood Count 8.7 K/mm3 (4.4-11.0)
--- NOTE | 2022-07-29 09:51 | EDS_ITS ---
HPI History of Present Illness Chief Complaint: Shortness of Breath Narrative Narrative: 52-year-old male with end-stage renal disease on dialysis Sunday/Sunday/Sunday presenting with shortness of breath. He states only short of breath at nighttime. He states that when he lays down to go to sleep. He does have a CPAP that he uses but states that it feels like it is too much pressure. He states that he has been feeling this way for about a month. He has not spoken to his primary care provider or his communications strategist. He did speak to the nurse practitioner for his communications strategist who he states was good to give him something to help him sleep but now he is having shortness of breath issues. Patient has made all of his dialysis appointments. He is not having chest pain. He states he does still make urine. He is not on any water pills that he knows of. Patient does state that he is coughing a fair amount. No sputum production. No fevers or chills. [facility] Medical History Anemia of chronic renal failure, stage 4 (severe) Cardiology follow-up encounter Chronic kidney disease with end stage renal failure on dialysis COPD (chronic obstructive pulmonary disease) CPAP (continuous positive airway pressure) dependence Degenerative disc disease, cervical Demand ischemia Diabetes Diabetes mellitus, type II, insulin dependent Diabetic polyneuropathy (04/2017) Elevated troponin Essential (primary) hypertension Fistula GERD (gastroesophageal reflux disease) High cholesterol History of CHF (congestive heart failure) History of echocardiogram History of stress test Hypertension Hypotension Insulin dependent diabetes mellitus Leg cramps Morbid obesity Non-ischemic cardiomyopathy Non-smoker Obstructive sleep apnea on CPAP Problem with dialysis access Sleep apnea Syncope (07/2018) Systolic and diastolic CHF, acute Wears glasses Wears partial dentures Home Medications aspirin 81 mg chewable tablet 81 mg PO DAILY HEART 08/10/17 [History Last Taken 08/08/18] omeprazole 20 mg capsule,delayed release 20 mg PO DAILY gerd 08/08/18 [History Last Taken 04/11/22] blood-glucose meter (FreeStyle [place] Lite kit) #1 ea 12/22/19 [Rx Last Taken Unknown] lancets 28 gauge (FreeStyle Lancets) #100 ea 12/22/19 [Rx Last Taken Unknown] pen needle, diabetic 32 gauge x / (BD Ultra-Fine [place] Pen Needle) #400 ea 12/22/19 [Rx Last Taken Unknown] insulin aspart U-100 100 unit/mL (3 mL) subcutaneous pen (Novolog FlexPen U-100 Insulin aspart) 15 unit (0.15 mL) subcut TID #60 mL 12/29/19 [Rx Last Taken 06/06/22] insulin syringe-needle U-100 0.5 mL 31 gauge x 5/16 (BD Insulin Syringe Ultra- Fine) #100 ea 12/29/19 [Rx Last Taken Unknown] albuterol sulfate 90 mcg/actuation aerosol inhaler 2 puff inhalation Q6H PRN Shortness Of Breath Or Wheezing 07/26/21 [History Last Taken Unknown] ammonium lactate 12 % lotion 1 applic topical BID 07/26/21 [History Last Taken Unknown] atorvastatin 80 mg tablet 80 mg PO QHS 07/26/21 [History Last Taken Unknown] carvedilol 25 mg tablet 25 mg PO BID BP 07/26/21 [History Last Taken 06/06/22] ezetimibe 10 mg tablet 10 mg PO DAILY 07/26/21 [History Last Taken Unknown] gabapentin 100 mg capsule 200 mg PO QHS 07/26/21 [History Last Taken Unknown] insulin detemir U-100 100 unit/mL (3 mL) subcutaneous pen (Levemir FlexTouch U- 100 Insulin) 40 unit subcut QHS 07/26/21 [History Last Taken Unknown] losartan 50 mg tablet 50 mg PO DAILY 07/26/21 [History Last Taken 06/06/22] chlorthalidone 25 mg tablet 25 mg PO DAILY #90 tabs 09/30/21 [Rx Last Taken Unknown] sucroferric oxyhydroxide 500 mg chewable tablet (Velphoro) 1,500 mg PO TID 02/20/22 [History Last Taken Unknown] promethazine 12.5 mg tablet 12.5 mg PO TID PRN nausea and vomiting #14 tabs 07/29/22 [Rx Last Taken Unknown] Allergy/AdvReac Type Severity Reaction Status Date / Time liraglutide [From Victoza] Allergy Unknown unknown Verified 07/29/22 08:46 NSAIDS (Non-Steroidal AdvReac Severe Renal Verified 07/29/22 08:46 Anti-Inflamma failure BLANCA Inhibitors AdvReac Intermediate cough Verified 07/29/22 08:46 Family History Mother Hypertension Grandmother Aneurysm Surgical History History of angioplasty of peripheral vessel (07/2021) Presence of surgically created arteriovenous shunt for hemodialysis (07/2017) Social History household members: spouse housing: house Smoking Status: Never smoker alcohol intake: never substance use type: does not use ROS ROS ED Review of Systems ROS Unobtainable: Denies due to encephalopathy Constitutional Constitutional ED: Denies chills or fever(s) Eyes Eyes: Denies change in vision or diplopia ENT ENT ED: Denies rhinorrhea or sore throat Cardiovascular Cardiovascular: Reports orthopnea; Denies chest pain or palpitations Respiratory/Chest Respiratory/Chest: Reports cough, dyspnea, dyspnea on exertion and orthopnea Gastrointestinal Gastrointestinal: Denies abdominal pain, nausea or vomiting Genitourinary Genitourinary ED: Denies dysuria or hematuria Musculoskeletal Musculoskeletal: Denies arthralgias Integumentary Denies abscess Neurologic Neurologic: Denies headache(s) or paresthesias Psychiatric Psychiatric: Denies anxiety or depression EXAM Physical Exam Const Vital Signs: 07/29/22 08:44 07/29/22 08:51 07/29/22 09:08 Temperature 97.1 F L Temperature Source Temporal Pulse Rate 103 H Respiratory Rate 16 Respiratory Effort Short of Breath Respiratory Depth Normal Respiratory Pattern Normal Blood Pressure 165/113 H Blood Pressure Mean 130 Pulse Ox 96 94 Oxygen Delivery Method Room Air Room Air Room Air 07/29/22 09:09 07/29/22 10:38 07/29/22 11:33 Temperature Temperature Source Pulse Rate 93 97 Respiratory Rate 16 25 H Respiratory Effort Respiratory Depth Respiratory Pattern Blood Pressure 177/117 H 143/94 H Blood Pressure Mean 137 110 Pulse Ox 96 98 Oxygen Delivery Method Room Air Room Air 07/29/22 12:16 07/29/22 12:42 Temperature Temperature Source Pulse Rate 97 100 Respiratory Rate 27 H 20 H Respiratory Effort Respiratory Depth Respiratory Pattern Blood Pressure 158/92 H 158/92 H Blood Pressure Mean 114 Pulse Ox 96 96 Oxygen Delivery Method Room Air Positive well nourished and obese Nutritional Appearance: obese HEENT Reports moist mucous membranes Resp normal respiratory effort and clear to auscultation bilaterally Auscultation: Negative for rales, rhonchi or wheezes Cardio regular rate and regular rhythm GI non-tender Neuro Motor Exam: strength 5/5 throughout Psych mental status grossly normal Skin no wounds and skin turgor normal MDM MDM MDM Narrative Medical decision making narrative: Patient presenting with shortness of breath. He states it is only at night and only when he is laying down. Patient with end-stage renal disease but making his dialysis appointments. Differential diagnosis includes volume overload, CHF, pneumonia, viral syndrome. CBC to assess white blood cell count, hemoglobin, platelets, differential. BMP to assess renal function, electrolytes, glucose, anion gap. High-sensitivity troponin will be added to assess for cardiac ischemia. EKG was obtained to assess for dysrhythmia/ischemia. Chest x-ray to assess for pneumonia/fluid overload. EKG was obtained and shows a normal sinus rhythm at 96 bpm without sign of ischemic change. Patient is not having any chest pain. He is PERC negative. Low suspicion for PE. CBC shows normal white blood cell count, hemoglobin stable 11.5. Platelets are normal. Creatinine expected for end-stage renal disease on dialysis. Electrolytes unremarkable. Glucose 128 without anion gap. High- sensitivity troponin is 47 and this is lower than his previous troponins of been. He is not reporting any chest pain. Chest x-ray on my interpretation shows no acute cardiopulmonary process. Radiologist are persistent agrees. Given his ultimately negative work-up I felt the patient was stable for discharge home. He was amenable to this. He did have some questions about medications that he can take to help sleep and I recommend he follow-up with his communications strategist. He was amenable to this as well. Prior to discharge he stated he had a little bit of nausea and requested some nausea medicine and he was given Phenergan with relief. I wrote him a prescription for some for home as well. Impression: 1. Orthopnea 2. Nausea Lab Data Labs: Laboratory Results - last 24 hr 07/29/22 07/29/22 09:35 09:35 WBC 8.7 RBC 3.80 L Hgb 11.5 L Hct 34.7 L MCV 91.3 MCH 30.3 MCHC 33.1 RDW Std Deviation 46.9 H RDW Coeff of Kyle 13.8 Plt Count 283 MPV 9.4 Immature Gran % (Auto) 0.300 Neut % (Auto) 75.2 H Lymph % (Auto) 12.9 L Bleck[place] % (Auto) 9.6 Eos % (Auto) 1.5 Baso % (Auto) 0.5 Absolute Neuts (auto) 6.5 Absolute Lymphs (auto) 1.12 Nucleated RBC % 0 Sodium 137 Potassium 4.8 Chloride 99 Carbon Dioxide 31.0 Anion Gap 7 BUN 30 H Creatinine 7.98 H* Estim Creat Clear Calc 10.83 Est GFR (MDRD) Af Amer 9 L Est GFR (MDRD) Non-Af 8 L BUN/Creatinine Ratio 3.8 L Glucose 128 H Calcium 9.9 Troponin I High Sens 47 Radiography Diagnostic Testing: Clinical Impression(s) from Imaging Studies Chest X-Ray 07/29/22 08:59 IMPRESSION: No acute cardiopulmonary process identified. Electronically Signed: Magalys Valentin MD at 10:37 EDT Reading Location ID and State: [facility] / [place] Tel , Service support , Discharge Plan Triage Chief Complaint: Shortness of Breath ED Provider: Henrry Aguirre Dx/Rx/DC Orders Instructions: ED Dyspnea, ED Vomiting (Adult) Prescriptions: New promethazine 12.5 mg tablet 12.5 mg PO TID PRN (Reason: nausea and vomiting) Qty: 14 0RF Rx Instructions: 3 doses during day; last dose no later than 4 hr before bedtime No Action (DME) blood-glucose meter [FreeStyle [place] Lite] Kit See Rx Instructions .ROUTE .MEDSUPPLY Qty: 1 0RF Rx Instructions: As directed (DME) pen needle, diabetic [BD Ultra-Fine [place] Pen Needle] 32 gauge x 5/32 needle See Rx Instructions .ROUTE .MEDSUPPLY Qty: 400 1RF Rx Instructions: 4 times daily (DME) lancets [FreeStyle Lancets] 28 gauge misc See Rx Instructions .ROUTE .MEDSUPPLY Qty: 100 5RF Rx Instructions: As directed chlorthalidone 25 mg tablet 25 mg PO DAILY Qty: 90 3RF losartan 50 mg tablet 50 mg PO DAILY atorvastatin 80 mg tablet 80 mg PO QHS ezetimibe 10 mg tablet 10 mg PO DAILY ammonium lactate 12 % lotion 1 applic topical BID gabapentin 100 mg capsule 200 mg PO QHS albuterol sulfate 90 mcg/actuation HFA aerosol inhaler 2 puff inhalation Q6H PRN (Reason: Shortness Of Breath Or Wheezing) Levemir FlexTouch U-100 Insuln 100 unit/mL (3 mL) insulin pen 40 unit subcut QHS carvedilol 25 mg tablet 25 mg PO BID Label Comments: HEART/BLOOD PRESSURE aspirin 81 MG tablet,chewable 81 mg PO DAILY Label Comments: ANTIPLATELET omeprazole 20 MG capsule,delayed release(DR/EC) 20 mg PO DAILY Label Comments: TAKE 1 CAPSULE BY MOUTH ONCE DAILY. Velphoro 500 mg tablet,chewable 1,500 mg PO TID Label Comments: CHEW & SWALLOW 3 TABLETS THREE TIMES A DAY WITH MEALS insulin aspart U-100 [Novolog FlexPen U-100 Insulin] 100 unit/mL (3 mL) insulin pen 15 unit SC TID Qty: 60 1RF (DME) insulin syringe-needle U-100 [BD Insulin Syringe Ultra-Fine] 0.5 mL 31 gauge x 5/16 syringe See Rx Instructions .ROUTE .MEDSUPPLY Qty: 100 0RF Rx Instructions: tid Primary Care Provider: Norris Mcqueen Referrals: Norris Mcqueen MD [Primary Care Provider] - Disposition Disposition: Home, Self Care Discharge Date/Time: 07/29/22 12:55
[2022-07-29 10:07] LABS: Anion Gap 7 (5-15); BUN 30 mg/dL (7-18); BUN/Creat Ratio 3.8 RATIO (10-20); Calcium,Total 9.9 mg/dL (8.5-10.1); Chloride 99 mmol/L (98-107); Creatinine, Serum 7.98 mg/dL (0.70-1.30); EST Glomerular Filtration Rate 8 mL/min (>60); Est Glom Filt Rate - Afr Amer 9 mL/min (>60); Estimated Creatinine Clearance 10.83 ml/min; Glucose 128 mg/dL (74-106); Potassium 4.8 mmol/L (3.5-5.1); Sodium Level 137 mmol/L (136-145); Troponin-I HS 47 pg/mL (3.0-78.0)
[2022-07-29] MEDS: proMETHazine 25 MG Tablet PO (12:50)
== END 2022-07-29 12:55 | disposition home or self-care (01) ==
PROVIDERS: Emergency Provider Student in an Organized Health Care Education/Training Program; PCP Family Medicine; Visit Provider Student in an Organized Health Care Education/Training Program
DX: R06.01 Orthopnea (principal); I13.2 Hypertensive heart and chronic kidney disease with heart failure and with stage 5 chronic kidney disease, or end stage renal disease; Z99.2 Dependence on renal dialysis; J44.9 Chronic obstructive pulmonary disease, unspecified; I50.42 Chronic combined systolic (congestive) and diastolic (congestive) heart failure; E11.22 Type 2 diabetes mellitus with diabetic chronic kidney disease; E11.42 Type 2 diabetes mellitus with diabetic polyneuropathy; N18.6 End stage renal disease; Z79.4 Long term (current) use of insulin; E78.00 Pure hypercholesterolemia, unspecified; Z99.89 Dependence on other enabling machines and devices; R11.0 Nausea; Z79.899 Other long term (current) drug therapy; Z79.82 Long term (current) use of aspirin; K21.9 Gastro-esophageal reflux disease without esophagitis; Z79.84 Long term (current) use of oral hypoglycemic drugs
CPT/HCPCS: 71045; 80048; 84484; 85025; 93005; 94760; 99283; A4216

== ENCOUNTER 2022-07-31 15:44 | Emergency (ER) | payer MEDICAID, SELFPAY ==
[2022-07-31] VITALS (7 sets, daily range): BP systolic 149–152; BP diastolic 65–96; PULSE 84–117; RESP 15–23; TEMP 36.1; O2SAT 91–97; BMI 48.4
--- NOTE | 2022-07-31 15:55 | EKG12_ITS ---
Test Reason : SOB Blood Pressure : / mmHG Vent. Rate : 112 BPM Atrial Rate : 112 BPM P-R Int : 132 ms QRS Dur : 088 ms QT Int : 362 ms P-R-T Axes : 035 -18 090 degrees QTc Int : 494 ms Sinus tachycardia Possible Left atrial enlargement Minimal voltage criteria for LVH, may be normal variant ( R in aVL ) Nonspecific ST and T wave abnormality Abnormal ECG Confirmed by TOMI WILLETT, JULIO ([id number]), managing editor MADYSON YOST ([id number]) on 08/02/2022 9:52:22 AM Referred By: TONI Confirmed By:RIRI KRISHNA MD
--- NOTE | 2022-07-31 16:04 | EDS_ITS ---
HPI History of Present Illness Chief Complaint: Shortness of Breath Narrative Narrative: 52-year-old male presenting with increasing dyspnea. He has a history of end- stage renal disease on dialysis Sunday, Sunday, Sunday. Patient had a full dialysis today. Patient reports orthopnea and dyspnea on exertion. He states when he does exert himself he gets a lot of chest pressure. This has been ongoing for about 2 weeks. He states over the last couple of days he has had some drainage. He told his significant other that he thought he had pneumonia. He was seen in the ER and had a work-up at that point and his blood work and imaging were normal. Patient was seen by his primary care physician today who sent him back to the emergency room due to dyspnea and low pulse ox. Patient denies having a fever or chills. He is not nauseous or vomiting. [facility] Medical History Anemia of chronic renal failure, stage 4 (severe) Cardiology follow-up encounter Chronic kidney disease with end stage renal failure on dialysis COPD (chronic obstructive pulmonary disease) CPAP (continuous positive airway pressure) dependence Degenerative disc disease, cervical Demand ischemia Diabetes Diabetes mellitus, type II, insulin dependent Diabetic polyneuropathy (04/2017) Elevated troponin Essential (primary) hypertension Fistula GERD (gastroesophageal reflux disease) High cholesterol History of CHF (congestive heart failure) History of echocardiogram History of stress test Hypertension Hypotension Insulin dependent diabetes mellitus Leg cramps Morbid obesity Non-ischemic cardiomyopathy Non-smoker Obstructive sleep apnea on CPAP Problem with dialysis access Sleep apnea Syncope (07/2018) Systolic and diastolic CHF, acute Wears glasses Wears partial dentures Home Medications aspirin 81 mg chewable tablet 81 mg PO DAILY HEART 08/10/17 [History Last Taken 08/08/18] omeprazole 20 mg capsule,delayed release 20 mg PO DAILY gerd 08/08/18 [History Last Taken 04/11/22] blood-glucose meter (FreeStyle [place] Lite kit) #1 ea 12/22/19 [Rx Last Taken Unknown] lancets 28 gauge (FreeStyle Lancets) #100 ea 12/22/19 [Rx Last Taken Unknown] pen needle, diabetic 32 gauge x 5/32 (BD Ultra-Fine [place] Pen Needle) #400 ea 12/22/19 [Rx Last Taken Unknown] insulin aspart U-100 100 unit/mL (3 mL) subcutaneous pen (Novolog FlexPen U-100 Insulin aspart) 15 unit (0.15 mL) subcut TID #60 mL 12/29/19 [Rx Last Taken 06/06/22] insulin syringe-needle U-100 0.5 mL 31 gauge x 5/16 (BD Insulin Syringe Ultra- Fine) #100 ea 12/29/19 [Rx Last Taken Unknown] albuterol sulfate 90 mcg/actuation aerosol inhaler 2 puff inhalation Q6H PRN Shortness Of Breath Or Wheezing 07/26/21 [History Last Taken Unknown] ammonium lactate 12 % lotion 1 applic topical BID 07/26/21 [History Last Taken Unknown] atorvastatin 80 mg tablet 80 mg PO QHS 07/26/21 [History Last Taken Unknown] carvedilol 25 mg tablet 25 mg PO BID BP 07/26/21 [History Last Taken 06/06/22] ezetimibe 10 mg tablet 10 mg PO DAILY 07/26/21 [History Last Taken Unknown] gabapentin 100 mg capsule 200 mg PO QHS 07/26/21 [History Last Taken Unknown] insulin detemir U-100 100 unit/mL (3 mL) subcutaneous pen (Levemir FlexTouch U- 100 Insulin) 40 unit subcut QHS 07/26/21 [History Last Taken Unknown] losartan 50 mg tablet 50 mg PO DAILY 07/26/21 [History Last Taken 06/06/22] chlorthalidone 25 mg tablet 25 mg PO DAILY #90 tabs 09/30/21 [Rx Last Taken Unknown] sucroferric oxyhydroxide 500 mg chewable tablet (Velphoro) 1,500 mg PO TID 02/20/22 [History Last Taken Unknown] promethazine 12.5 mg tablet 12.5 mg PO TID PRN nausea and vomiting #14 tabs 07/29/22 [Rx Last Taken Unknown] Allergy/AdvReac Type Severity Reaction Status Date / Time liraglutide [From Victoza] Allergy Unknown unknown Verified 07/31/22 15:45 NSAIDS (Non-Steroidal AdvReac Severe Renal Verified 07/31/22 15:45 Anti-Inflamma failure BLANCA Inhibitors AdvReac Intermediate cough Verified 07/31/22 15:45 Family History Mother Hypertension Grandmother Aneurysm Surgical History History of angioplasty of peripheral vessel (07/2021) Presence of surgically created arteriovenous shunt for hemodialysis (07/2017) Social History household members: spouse housing: house Smoking Status: Never smoker alcohol intake: never substance use type: does not use ROS ROS ED Constitutional Constitutional ED: Denies chills or fever(s) Eyes Eyes: Denies change in vision or diplopia ENT ENT ED: Denies rhinorrhea or sore throat Cardiovascular Cardiovascular: Reports chest pain and orthopnea Respiratory/Chest Respiratory/Chest: Reports cough, dyspnea, dyspnea on exertion and orthopnea Gastrointestinal Gastrointestinal: Denies abdominal pain, nausea or vomiting Genitourinary Genitourinary ED: Denies dysuria or hematuria Musculoskeletal Musculoskeletal: Denies arthralgias Integumentary Denies abscess or Abrasions Neurologic Neurologic: Reports headache(s) Psychiatric Psychiatric: Denies anxiety or depression EXAM Physical Exam Const Vital Signs: 07/31/22 15:45 07/31/22 15:55 07/31/22 15:58 Temperature 97 F L Temperature Source Temporal Pulse Rate 113 H Respiratory Rate 18 Respiratory Effort Short of Breath Respiratory Depth Normal Respiratory Pattern Normal Blood Pressure 152/90 H Blood Pressure Mean 110 Pulse Ox 97 Oxygen Delivery Method Room Air Room Air Room Air 07/31/22 16:44 07/31/22 17:00 07/31/22 18:00 Temperature Temperature Source Pulse Rate 114 H 117 H 113 H Respiratory Rate 15 18 23 H Respiratory Effort Respiratory Depth Respiratory Pattern Blood Pressure 149/96 H 149/96 H Blood Pressure Mean 113 113 Pulse Ox 93 91 95 Oxygen Delivery Method Room Air Room Air 07/31/22 19:33 Temperature Temperature Source Pulse Rate 114 H Respiratory Rate 16 Respiratory Effort Respiratory Depth Respiratory Pattern Blood Pressure Blood Pressure Mean Pulse Ox 95 Oxygen Delivery Method Room Air Positive well nourished General Appearance ED: NAD HEENT Reports moist mucous membranes Eyes PERRL and EOMs intact bilaterally Resp normal respiratory effort Auscultation: Negative for rales, rhonchi or wheezes Cardio Rate: tachycardic GI non-tender Neuro oriented x3 and CN's II-XII intact bilaterally Sensorium / Orientation: alert Motor Exam: strength 5/5 throughout Psych mental status grossly normal Skin no wounds MDM MDM MDM Narrative Medical decision making narrative: 52-year-old male presenting in with shortness of breath which is now more with exertion. He does report to me that his primary care physician Dr. Mcqueen was going to treat him for anxiety as well. This was before he was sent back to the emergency room with concern for possible PE given that he has a fistula for his dialysis. He was able to complete a full dialysis today. He is a little tachycardic and tachypneic but his lungs are clear to auscultation. Differential diagnosis at this time includes ACS, PE, pneumonia, CHF, anxiety. CBC to assess white blood cell count, hemoglobin, platelets, differential. BMP to assess renal function, electrolytes, glucose, anion gap. BNP to assess for CHF. X-ray was also performed to rule out pneumonia versus CHF. D-dimer to assess for PE. CBC and BMP were ultimately unremarkable. Patient's abnormalities on BMP are consistent with end-stage renal disease on dialysis. Glucose slightly elevated 147 without anion gap. High-sensitivity troponin is 67 And delta troponin is 64. No significant interval change. D-dimer was negative. EKG on my interpretation shows sinus tachycardia at a rate of 112 bpm. Chest x-ray my interpretation is no acute process. Radiology interpretation agrees. Patient ambulated in maintain sats 90 or above. I spoke with Dr. Alexander who is on-call for Dr. Mcqueen. After discussion we determined the patient will be sent home. He will follow-up with Dr. Mcqueen tomorrow. Dr. Alexander asked me not to give him anything for anxiety tonight. This was discussed with the patient. He is amenable to this plan. He is discharged home in stable condition. Impression: 1. Dyspnea 2. Orthopnea Lab Data Labs: Laboratory Results - last 24 hr 07/31/22 07/31/22 07/31/22 16:09 16:09 16:09 WBC 7.9 RBC 3.84 L Hgb 11.5 L Hct 34.5 L MCV 89.8 MCH 29.9 MCHC 33.3 RDW Std Deviation 45.2 H RDW Coeff of Kyle 13.9 Plt Count 285 MPV 9.5 Immature Gran % (Auto) 0.100 Neut % (Auto) 70.7 H Lymph % (Auto) 16.3 L Falls % (Auto) 10.7 H Eos % (Auto) 1.6 Baso % (Auto) 0.6 Absolute Neuts (auto) 5.6 Absolute Lymphs (auto) 1.29 Nucleated RBC % 0 D-Dimer Quant (PE/DVT) Sodium 135 L Potassium 3.7 Chloride 97 L Carbon Dioxide 32.0 Anion Gap 6 BUN 22 H Creatinine 6.68 H Estim Creat Clear Calc 12.09 Est GFR (MDRD) Af Amer 11 L Est GFR (MDRD) Non-Af 9 L BUN/Creatinine Ratio 3.3 L Glucose 147 H Calcium 9.3 Troponin I High Sens 67 B-Natriuretic Peptide 174.9 H 07/31/22 07/31/22 16:09 18:20 WBC RBC Hgb Hct MCV MCH MCHC RDW Std Deviation RDW Coeff of Kyle Plt Count MPV Immature Gran % (Auto) Neut % (Auto) Lymph % (Auto) Falls % (Auto) Eos % (Auto) Baso % (Auto) Absolute Neuts (auto) Absolute Lymphs (auto) Nucleated RBC % D-Dimer Quant (PE/DVT) 0.34 Sodium Potassium Chloride Carbon Dioxide Anion Gap BUN Creatinine Estim Creat Clear Calc Est GFR (MDRD) Af Amer Est GFR (MDRD) Non-Af BUN/Creatinine Ratio Glucose Calcium Troponin I High Sens 64 B-Natriuretic Peptide Radiography Diagnostic Testing: Clinical Impression(s) from Imaging Studies Chest X-Ray 07/31/22 16:15 IMPRESSION: No radiographic evidence of acute cardiopulmonary disease. Electronically Signed: Racehle Workman MD at 18:08 EDT Reading Location ID and State: [id number] / Tel , Service support , Discharge Plan Triage Chief Complaint: Shortness of Breath ED Provider: Henrry Aguirre Dx/Rx/DC Orders Instructions: ED Dyspnea Prescriptions: No Action (DME) blood-glucose meter [FreeStyle [place] Lite] Kit See Rx Instructions .ROUTE .MEDSUPPLY Qty: 1 0RF Rx Instructions: As directed (DME) pen needle, diabetic [BD Ultra-Fine [place] Pen Needle] 32 gauge x 5/32 needle See Rx Instructions .ROUTE .MEDSUPPLY Qty: 400 1RF Rx Instructions: 4 times daily (DME) lancets [FreeStyle Lancets] 28 gauge misc See Rx Instructions .ROUTE .MEDSUPPLY Qty: 100 5RF Rx Instructions: As directed chlorthalidone 25 mg tablet 25 mg PO DAILY Qty: 90 3RF losartan 50 mg tablet 50 mg PO DAILY atorvastatin 80 mg tablet 80 mg PO QHS ezetimibe 10 mg tablet 10 mg PO DAILY ammonium lactate 12 % lotion 1 applic topical BID gabapentin 100 mg capsule 200 mg PO QHS albuterol sulfate 90 mcg/actuation HFA aerosol inhaler 2 puff inhalation Q6H PRN (Reason: Shortness Of Breath Or Wheezing) Levemir FlexTouch U-100 Insuln 100 unit/mL (3 mL) insulin pen 40 unit subcut QHS carvedilol 25 mg tablet 25 mg PO BID Label Comments: HEART/BLOOD PRESSURE aspirin 81 MG tablet,chewable 81 mg PO DAILY Label Comments: ANTIPLATELET omeprazole 20 MG capsule,delayed release(DR/EC) 20 mg PO DAILY Label Comments: TAKE 1 CAPSULE BY MOUTH ONCE DAILY. Velphoro 500 mg tablet,chewable 1,500 mg PO TID Label Comments: CHEW & SWALLOW 3 TABLETS THREE TIMES A DAY WITH MEALS promethazine 12.5 mg tablet 12.5 mg PO TID PRN (Reason: nausea and vomiting) Qty: 14 0RF Rx Instructions: 3 doses during day; last dose no later than 4 hr before bedtime insulin aspart U-100 [Novolog FlexPen U-100 Insulin] 100 unit/mL (3 mL) insulin pen 15 unit SC TID Qty: 60 1RF (DME) insulin syringe-needle U-100 [BD Insulin Syringe Ultra-Fine] 0.5 mL 31 gauge x 5/16 syringe See Rx Instructions .ROUTE .MEDSUPPLY Qty: 100 0RF Rx Instructions: tid Primary Care Provider: Norris Mcqueen Referrals: Norris Mcqueen MD [Primary Care Provider] - Disposition Disposition: Home, Self Care
--- NOTE | 2022-07-31 16:15 | RAD_ITS ---
INDICATION: chest pain EXAMINATION/TECHNIQUE: X-RAY - XR Chest 1 View COMPARISON: 07/29/2022. FINDINGS: LINES/DEVICES: None. LUNGS: No consolidation, edema or effusion. No pneumothorax. MEDIASTINUM AND CARDIOVASCULAR STRUCTURES: Cardiac silhouette not enlarged. Central airways and mediastinal contour are unremarkable. BONES AND SOFT TISSUES: Unremarkable. RAD/Chest 1 View (Portable) IMPRESSION: No radiographic evidence of acute cardiopulmonary disease. Electronically Signed: Rachele Workman MD at 18:08 EDT Reading Location ID and State: [id number] / Tel , Service support ,
[2022-07-31 16:20] LABS: Absolute Lymphocyte Count 1.29 X10^3/uL (0.83-4.51); Absolute Neutrophil Count 5.6 X10^3/uL (2.0-7.7); Basophil# 0.05 X10^3/uL; Basophil% 0.6 % (0-1); Eosinophil# 0.13 X10^3/uL; Eosinophils% 1.6 % (0-5); Hematocrit 34.5 % (40-54); Hemoglobin 11.5 g/dL (13.0-16.5); Lymphocyte # 1.29 X10^3/ul (0.83-4.51); Lymphocyte % 16.3 % (19-41); Mean Corp Hgb Conc 33.3 g/dL (32-36); Mean Corpuscular Hgb 29.9 pg (27.0-32.0); Mean Corpuscular Volume 89.8 fL (80-94); Mean Platelet Vol. 9.5 fl (6.2-12.0); Monocyte# 0.85 X10^3/uL; Monocyte% 10.7 % (0-10); NRBC Flagged by Analyzer 0 % (0-5); Neutrophil # 5.59 X10^3/uL (2.7-7.7); Neutrophil % 70.7 % (47-70); Platelet Count 285 K/mm3 (150-450); RBC Distribution Width CV 13.9 % (11.6-14.6); RBC Distribution Width SD 45.2 fl (35.1-43.9); Red Blood Count 3.84 M/mm3 (4.6-6.2); White Blood Count 7.9 K/mm3 (4.4-11.0)
[2022-07-31 16:34] LABS: Anion Gap 6 (5-15); BUN 22 mg/dL (7-18); BUN/Creat Ratio 3.3 RATIO (10-20); Calcium,Total 9.3 mg/dL (8.5-10.1); Chloride 97 mmol/L (98-107); Creatinine, Serum 6.68 mg/dL (0.70-1.30); EST Glomerular Filtration Rate 9 mL/min (>60); Est Glom Filt Rate - Afr Amer 11 mL/min (>60); Estimated Creatinine Clearance 12.09 ml/min; Glucose 147 mg/dL (74-106); Potassium 3.7 mmol/L (3.5-5.1); Sodium Level 135 mmol/L (136-145); Troponin-I HS (w/2H Reflex) 67 pg/mL (3.0-78.0)
[2022-07-31 16:45] LABS: BNP,B-Type NATRIURETIC PEPTIDE 174.9 pg/mL (0-100)
[2022-07-31 17:11] LABS: D-Dimer Quantitative (DVT/PE) 0.34 FEU/ug/m (0.27-0.49)
[2022-07-31 18:13] LABS: Reflex Troponin-HS? (from REC) Y
[2022-07-31 18:57] LABS: Troponin-I HS 64 pg/mL (3.0-78.0)
--- NOTE | 2022-07-31 19:12 | ED.RN ---
DR. SNYDER MADE AWARE OF PT REUESTING ANXIETY MEDS.
== END 2022-07-31 21:05 | disposition home or self-care (01) ==
PROVIDERS: Emergency Provider Student in an Organized Health Care Education/Training Program; PCP Family Medicine; Visit Provider Student in an Organized Health Care Education/Training Program
DX: R06.01 Orthopnea (principal); I13.2 Hypertensive heart and chronic kidney disease with heart failure and with stage 5 chronic kidney disease, or end stage renal disease; Z99.2 Dependence on renal dialysis; J44.9 Chronic obstructive pulmonary disease, unspecified; I50.42 Chronic combined systolic (congestive) and diastolic (congestive) heart failure; E11.22 Type 2 diabetes mellitus with diabetic chronic kidney disease; E11.42 Type 2 diabetes mellitus with diabetic polyneuropathy; E11.65 Type 2 diabetes mellitus with hyperglycemia; N18.6 End stage renal disease; Z79.4 Long term (current) use of insulin; E78.00 Pure hypercholesterolemia, unspecified; Z79.899 Other long term (current) drug therapy; Z79.82 Long term (current) use of aspirin; K21.9 Gastro-esophageal reflux disease without esophagitis; Z99.89 Dependence on other enabling machines and devices
CPT/HCPCS: 71045; 80048; 83880; 84484; 85025; 85379; 87428; 93005; 99284; A4216

== ENCOUNTER → 2022-08-01 | Outpatient (CLI) | payer MEDICAID, SELFPAY ==
--- NOTE | 2022-08-01 16:34 | CT_ITS ---
STUDY: CTA CHEST REASON FOR EXAM: Male, 52 years old. CHEST PAIN, SOB, TACHY RADIATION DOSAGE (If Supplied By Facility): CTDIvol = ( 13.85 ) mGy, DLP = ( 556.48 ) mGycm TECHNIQUE: The examination was performed with the intravenous administration of 100mL Isovue-370. Post-processing of the angiographic images was performed, with multiplanar reformation and 3D reconstruction. Individualized dose optimization techniques were used for this CT. COMPARISON: None. FINDINGS: Suboptimal opacification of the pulmonary arteries limits evaluation of the distal segmental and subsegmental pulmonary artery branches. No large or central pulmonary emboli detected. Smaller or distal PE cannot be reliably excluded. Normal thoracic aorta and visualized great vessels. There is no demonstrated aortic dissection. Normal heart and pericardium. Normal mediastinum. Normal hilar regions. Normal visualized trachea and bronchi. Diffuse, bilateral groundglass opacities with small areas of consolidation right lower lobe. No pleural effusions. Normal chest wall structures. No acute or aggressive osseous abnormality. No acute findings in the upper abdomen. CT/CTA Chest W/WO Contrast IMPRESSION: Limited study due to suboptimal opacification of the pulmonary arteries. No large or central pulmonary emboli detected. Smaller or more distal emboli cannot be reliably excluded. Bilateral groundglass opacities of unknown chronicity. In the appropriate clinical setting these findings may indicate pneumonia including atypical or viral pneumonia. Electronically Signed: Justyn Alfaro MD at 18:27 EDT ,
== END | disposition home or self-care (01) ==
LOC: CT 16:31
PROVIDERS: PCP Family Medicine; Visit Provider Physician Assistant
DX: R07.1 Chest pain on breathing (principal); R06.02 Shortness of breath; R00.0 Tachycardia, unspecified
CPT/HCPCS: 71275; Q9967

== ENCOUNTER 2023-01-22 05:53 | Inpatient (IN) | payer MEDICARE, MEDICAID, SELFPAY ==
[2023-01-22] VITALS (10 sets, daily range): BP systolic 98–202; BP diastolic 70–126; PULSE 80–143; RESP 12–21; TEMP 36.2–36.7; O2SAT 94–98; BMI 45.6; BMI 45.2
--- NOTE | 2023-01-22 06:19 | ED.VIS.CHEST ---
HPI <Dr. Wilfred Crawford MD - Last Filed: 01/22/23 08:06> History of Present Illness Chief Complaint: Chest Pain Informant: patient Onset/Context/Timing Onset: Hours (1) Activity at onset: sleep Timing: Continuous Quality: Positive for Aching Location: Substernal (Radiating down left upper extremity) Current Severity: Mild Maximum Severity: Severe Worsened By: Nothing Relieved By: Nothing Associated Symptoms: Positive for Dyspnea, Cough (Recently last week or so, minor nonproductive) and Palpitations; Negative for Nausea, Vomiting, Diaphoresis, Fever or Lightheadedness Narrative Narrative: Woke up about an hour prior to arrival with racing heartbeat and chest discomfort radiating down his left upper extremity. He has a history of hypertensive nonischemic cardiomyopathy, chronic kidney disease on dialysis, he was feeling well lately prior to waking up with this. He has not missed any dialysis sessions, except for him being scheduled for it this morning but he is currently here in the emergency department. He states his symptoms do not feel as bad now. [facility] <Dr. 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 COPD (chronic obstructive pulmonary disease) CPAP (continuous positive airway pressure) dependence Degenerative disc disease, cervical Demand ischemia Diabetes Diabetes mellitus, type II, insulin dependent Diabetic polyneuropathy (04/2017) Elevated troponin Essential (primary) hypertension Fistula GERD (gastroesophageal reflux disease) High cholesterol History of CHF (congestive heart failure) History of echocardiogram History of stress test Hypertension Hypotension Insulin dependent diabetes mellitus Leg cramps Morbid obesity Non-ischemic cardiomyopathy Non-smoker Obstructive sleep apnea on CPAP Problem with dialysis access Sleep apnea Syncope (07/2018) Systolic and diastolic CHF, acute Wears glasses Wears partial dentures Home Medications aspirin 81 mg chewable tablet 81 mg PO DAILY HEART 08/10/17 [History Last Taken 08/08/18] omeprazole 20 mg capsule,delayed release 20 mg PO DAILY gerd 08/08/18 [History Last Taken 04/11/22] blood-glucose meter (FreeStyle Flom Lite kit) #1 ea 12/22/19 [Rx Last Taken Unknown] lancets 28 gauge (FreeStyle Lancets) #100 ea 12/22/19 [Rx Last Taken Unknown] pen needle, diabetic 32 gauge x 5/32 (BD Ultra-Fine China Pen Needle) #400 ea 12/22/19 [Rx Last Taken Unknown] insulin aspart U-100 100 unit/mL (3 mL) subcutaneous pen (Novolog FlexPen U-100 Insulin aspart) 15 unit (0.15 mL) subcut TID #60 mL 12/29/19 [Rx Last Taken 06/06/22] insulin syringe-needle U-100 0.5 mL 31 gauge x 5/16 (BD Insulin Syringe Ultra-Fine) #100 ea 12/29/19 [Rx Last Taken Unknown] albuterol sulfate 90 mcg/actuation aerosol inhaler 2 puff inhalation Q6H PRN Shortness Of Breath Or Wheezing 07/26/21 [History Last Taken Unknown] ammonium lactate 12 % lotion 1 applic topical BID 07/26/21 [History Last Taken Unknown] atorvastatin 80 mg tablet 80 mg PO QHS 07/26/21 [History Last Taken Unknown] carvedilol 25 mg tablet 25 mg PO BID BP 07/26/21 [History Last Taken 06/06/22] ezetimibe 10 mg tablet 10 mg PO DAILY 07/26/21 [History Last Taken Unknown] gabapentin 100 mg capsule 200 mg PO QHS 07/26/21 [History Last Taken Unknown] insulin detemir U-100 100 unit/mL (3 mL) subcutaneous pen (Levemir FlexTouch U-100 Insulin) 40 unit subcut QHS 07/26/21 [History Last Taken Unknown] losartan 50 mg tablet 50 mg PO DAILY 07/26/21 [History Last Taken 06/06/22] chlorthalidone 25 mg tablet 25 mg PO DAILY #90 tabs 09/30/21 [Rx Last Taken Unknown] sucroferric oxyhydroxide 500 mg chewable tablet (Velphoro) 1,500 mg PO TID 02/20/22 [History Last Taken Unknown] promethazine 12.5 mg tablet 12.5 mg PO TID PRN nausea and vomiting #14 tabs 07/29/22 [Rx Last Taken Unknown] Allergy/AdvReac Type Severity Reaction Status Date / Time liraglutide [From Victoza] Allergy Unknown unknown Verified 01/22/23 05:58 NSAIDS (Non-Steroidal AdvReac Severe Renal Verified 01/22/23 05:58 Anti-Inflamma failure BLANCA Inhibitors AdvReac Intermediate cough Verified 01/22/23 05:58 Family History Mother Hypertension Grandmother Aneurysm Surgical History History of angioplasty of peripheral vessel (07/2021) Presence of surgically created arteriovenous shunt for hemodialysis (07/2017) Social History household members: spouse housing: house Smoking Status: Never smoker alcohol intake: never substance use type: does not use ROS <Dr. Wilfred Crawford MD - Last Filed: 01/22/23 08:06> ROS ED Constitutional Constitutional ED: Denies chills or fever(s) Eyes Eyes: Denies change in vision or diplopia ENT ENT ED: Denies rhinorrhea or sore throat Cardiovascular Cardiovascular: Reports as per HPI, chest pain, palpitations, racing heartbeat and radiating jaw, neck or arm pain; Denies leg edema, lightheadedness, orthopnea or syncope Respiratory/Chest Respiratory/Chest: Reports dyspnea; Denies cough or orthopnea Gastrointestinal Gastrointestinal: Denies abdominal pain, diarrhea, nausea or vomiting Genitourinary Genitourinary ED: Denies dysuria or hematuria Musculoskeletal Musculoskeletal: Denies back pain or neck pain Integumentary Denies abscess or rash Neurologic Neurologic: Denies headache(s), paresthesias or weakness Psychiatric Psychiatric: Denies anxiety or suicidal thoughts EXAM <Dr. Wilfred Crawford MD - Last Filed: 01/22/23 08:06> Physical Exam Const Vital Signs: 01/22/23 05:54 01/22/23 05:59 01/22/23 06:20 Temperature 97.8 F Temperature Source Oral Pulse Rate 143 H 102 H Respiratory Rate 21 H 18 Respiratory Effort Normal Non-Labored Blood Pressure 202/126 H 146/86 H Blood Pressure Mean 151 106 Pulse Ox 95 Oxygen Delivery Method Room Air Room Air 01/22/23 06:20 01/22/23 06:34 01/22/23 07:36 Temperature Temperature Source Pulse Rate 103 H 89 Respiratory Rate 18 Respiratory Effort Blood Pressure 181/114 H 140/102 H Blood Pressure Mean 114 Pulse Ox 96 Oxygen Delivery Method Room Air Room Air Positive well nourished, well developed and obese General Appearance ED: well developed and NAD Nutritional Appearance: obese HEENT Reports moist mucous membranes normocephalic and atraumatic Eyes PERRL and EOMs intact bilaterally Neck full ROM and supple Resp normal respiratory effort and clear to auscultation bilaterally Cardio regular rate, regular rhythm and no murmurs Rate: tachycardic GI non-tender and non-distended Auscultation: normoactive bowel sounds Palpation: soft Back/Spine no CVA tenderness General Back: other FROM Extremity normal to inspection and no calf tenderness General Extremety ED: Negative for edema, pulses abnormal or tenderness General Extremity: Negative for edema or pulses abnormal Neuro oriented x3, CN's II-XII intact bilaterally and no sensory deficits noted Sensorium / Orientation: awake and alert Motor Exam: strength 5/5 throughout Skin no rashes or lesions noted and no wounds <Terrell Mortensen MD - Last Filed: 01/22/23 09:13> Physical Exam Const Vital Signs: 01/22/23 05:54 01/22/23 05:59 01/22/23 06:20 Temperature 97.8 F Temperature Source Oral Pulse Rate 143 H 102 H Respiratory Rate 21 H 18 Respiratory Effort Normal Non-Labored Blood Pressure 202/126 H 146/86 H Blood Pressure Mean 151 106 Pulse Ox 95 Oxygen Delivery Method Room Air Room Air 01/22/23 06:20 01/22/23 06:34 01/22/23 07:36 Temperature Temperature Source Pulse Rate 103 H 89 Respiratory Rate 18 Respiratory Effort Blood Pressure 181/114 H 140/102 H Blood Pressure Mean 114 Pulse Ox 96 Oxygen Delivery Method Room Air Room Air <Dr. Wilfred Crawford MD - Last Filed: 01/22/23 08:06> Heart Score History: Moderately Suspicious ECG: Nonspecific Repolarization Age: >45 - <65 years Risk Factors: 1 or 2 Risk Factors Troponin: >1 - <3 Normal Limit Score: 5 <Terrell Mortensen MD - Last Filed: 01/22/23 09:13> Heart Score Score: 5 MDM <Dr. Wilfred Crawford MD - Last Filed: 01/22/23 08:06> MDM MDM Narrative Medical decision making narrative: EKG was obtained upon patient's presentation and showed sinus tachycardia in the 140s, on my interpretation. By the time I got to the patient to evaluate him, his heart rate was down to 102-104, clearly sinus in nature. He states he has continued to feel better. My suspicion is that this patient was having a dysrhythmia, that may or may not have been caused by or a result of cardiac pain. I suspect he broke out of it spontaneously prior to us obtaining the EKG, and we were seeing the resultant sinus tachycardia and his rate was coming down. On reexamination, his heart rate now is in the 80s and he states the chest and arm discomfort is completely resolved. His troponin returned slightly nonspecifically elevated at 110. Although he has a history of chronic kidney disease, he has had multiple prior troponin measurements that have been within normal limits. I discussed this case with Dr. Pickens with cardiology. He recommends ruling the patient out for pulmonary embolus, and repeating his troponin, admitting him only if there is significant elevation. I think that is reasonable, since he is scheduled for dialysis today, it would be reasonable to just obtain CT angiography of the chest, which will be done. Discussed with oncoming ED physician for disposition after these tests are back and the repeat troponin 2 hours after the initial. Lab Data Attestation: I reviewed the patient's lab results. Labs: Laboratory Results - last 24 hr 01/22/23 01/22/23 06:07 08:15 WBC 8.7 RBC 3.78 L Hgb 10.9 L Hct 32.7 L MCV 86.5 MCH 28.8 MCHC 33.3 RDW Std Deviation 46.8 H RDW Coeff of Kyle 14.8 H Plt Count 316 MPV 9.5 Immature Gran % (Auto) 0.300 Neut % (Auto) 73.8 H Lymph % (Auto) 14.8 L [place] % (Auto) 7.9 Eos % (Auto) 2.9 Baso % (Auto) 0.3 Absolute Neuts (auto) 6.4 Absolute Lymphs (auto) 1.29 Nucleated RBC % 0 Sodium 137 Potassium 4.5 Chloride 99 Carbon Dioxide 27.0 Anion Gap 11 BUN 54 H Creatinine 11.40 H* Estim Creat Clear Calc 7.58 Est GFR (MDRD) Af Amer 6 L Est GFR (MDRD) Non-Af 5 L BUN/Creatinine Ratio 4.7 L Glucose 135 H Calcium 9.2 Troponin I High Sens 110 H 275 H* Radiography Diagnostic Testing: Clinical Impression(s) from Imaging Studies Chest X-Ray 01/22/23 06:22 IMPRESSION: No radiographic evidence of acute cardiopulmonary disease. Electronically Signed: Harsh Monge MD at 6:51 EDT , Chest CTA 01/22/23 07:18 IMPRESSION: No evidence of pulmonary embolism. Geographical areas of groundglass appearance seen in both lungs. This may represent a chronic pneumonitis. Electronically Signed: Kevin Bustos MD at 8:34 EDT , Rhythm Strip Rhythm Strip: Sinus Tach Rate: 104 Ectopy: PVC(s) EKG Initial EKG: Attestation: I personally reviewed and interpreted this EKG as follows: Interpretation: No Acute Injury Pattern, Sinus Tachycardia and Non-Specific ST Changes Comments: PVC Prior EKG tracings: available for review Prior: Unchanged Management Discussion w/another healthcare provider: Tour Consultant (cardiology) <Terrell Mortensen MD - Last Filed: 01/22/23 09:13> [facility] Narrative Medical decision making narrative: EKG was obtained upon patient's presentation and showed sinus tachycardia in the 140s, on my interpretation. By the time I got to the patient to evaluate him, his heart rate was down to 102-104, clearly sinus in nature. He states he has continued to feel better. My suspicion is that this patient was having a dysrhythmia, that may or may not have been caused by or a result of cardiac pain. I suspect he broke out of it spontaneously prior to us obtaining the EKG, and we were seeing the resultant sinus tachycardia and his rate was coming down. On reexamination, his heart rate now is in the 80s and he states the chest and arm discomfort is completely resolved. His troponin returned slightly nonspecifically elevated at 110. Although he has a history of chronic kidney disease, he has had multiple prior troponin measurements that have been within normal limits. I discussed this case with Dr. Pickens with cardiology. He recommends ruling the patient out for pulmonary embolus, and repeating his troponin, admitting him only if there is significant elevation. I think that is reasonable, since he is scheduled for dialysis today, it would be reasonable to just obtain CT angiography of the chest, which will be done. Discussed with oncoming ED physician for disposition after these tests are back and the repeat troponin [address] the initial[address] Dr[address] Mortensen: Patient endorsed to me by Dr. Crawford to check for delta troponin on this patient with end-stage renal disease and a creatinine of 11 and initial troponin of 110. He had discussed the patient with cardiology already, who stated that if there were no significant increase, the patient could be discharged. I reviewed the CTA results that had been ordered, and while there is no evidence of pulmonary embolism, he has bilateral groundglass appearance of his lungs consistent with chronic pneumonitis. I reviewed his second troponin which is elevated at 275, and it has more than doubled. I then discussed patient with Dr. Clemons for admission who requested that I inform Dr. Pickens with cardiology of the increase in troponin and the need for eventual heart catheterization. Patient states he had already been given aspirin. Disposition is admit in stable condition. Lab Data Labs: Laboratory Results - last 24 hr 01/22/23 01/22/23 06:07 08:15 WBC 8.7 RBC 3.78 L Hgb 10.9 L Hct 32.7 L MCV 86.5 MCH 28.8 MCHC 33.3 RDW Std Deviation 46.8 H RDW Coeff of Kyle 14.8 H Plt Count 316 MPV 9.5 Immature Gran % (Auto) 0.300 Neut % (Auto) 73.8 H Lymph % (Auto) 14.8 L [place] % (Auto) 7.9 Eos % (Auto) 2.9 Baso % (Auto) 0.3 Absolute Neuts (auto) 6.4 Absolute Lymphs (auto) 1.29 Nucleated RBC % 0 Sodium 137 Potassium 4.5 Chloride 99 Carbon Dioxide 27.0 Anion Gap 11 BUN 54 H Creatinine 11.40 H* Estim Creat Clear Calc 7.58 Est GFR (MDRD) Af Amer 6 L Est GFR (MDRD) Non-Af 5 L BUN/Creatinine Ratio 4.7 L Glucose 135 H Calcium 9.2 Troponin I High Sens 110 H 275 H* Radiography Diagnostic Testing: Clinical Impression(s) from Imaging Studies Chest X-Ray 01/22/23 06:22 IMPRESSION: No radiographic evidence of acute cardiopulmonary disease. Electronically Signed: Harsh Monge MD at 6:51 EDT , Chest CTA 01/22/23 07:18 IMPRESSION: No evidence of pulmonary embolism. Geographical areas of groundglass appearance seen in both lungs. This may represent a chronic pneumonitis. Electronically Signed: Kevin Bustos MD at 8:34 EDT , Discharge Plan Dx/Rx/DC Orders Clinical Impression: Palpitations, Chest pain, ESRD on dialysis, Elevated troponin Disposition Disposition: Acute Care [facility]
--- NOTE | 2023-01-22 06:22 | RAD_ITS ---
INDICATION: chest pain EXAMINATION/TECHNIQUE: X-RAY - AP view chest COMPARISON: Chest x-ray from 07/31/2022 FINDINGS: Evaluation slightly limited by large body habitus and poor penetration. LINES/DEVICES: None. LUNGS: No overt pulmonary edema or focal airspace consolidation. No sizable pleural effusion. No pneumothorax detected. MEDIASTINUM AND CARDIOVASCULAR STRUCTURES: Heart size within normal limits for imaging technique. Central airways and mediastinal contour are unremarkable. BONES AND SOFT TISSUES: No acute findings. RAD/Chest 1 View (Portable) IMPRESSION: No radiographic evidence of acute cardiopulmonary disease. Electronically Signed: Harsh Monge MD at 6:51 EDT ,
[2023-01-22 06:30] LABS: Absolute Lymphocyte Count 1.29 X10^3/uL (0.83-4.51); Absolute Neutrophil Count 6.4 X10^3/uL (2.0-7.7); Basophil# 0.03 X10^3/uL; Basophil% 0.3 % (0-1); Eosinophil# 0.25 X10^3/uL; Eosinophils% 2.9 % (0-5); Hematocrit 32.7 % (40-54); Hemoglobin 10.9 g/dL (13.0-16.5); Lymphocyte # 1.29 X10^3/ul (0.83-4.51); Lymphocyte % 14.8 % (19-41); Mean Corp Hgb Conc 33.3 g/dL (32-36); Mean Corpuscular Hgb 28.8 pg (27.0-32.0); Mean Corpuscular Volume 86.5 fL (80-94); Mean Platelet Vol. 9.5 fl (6.2-12.0); Monocyte# 0.69 X10^3/uL; Monocyte% 7.9 % (0-10); NRBC Flagged by Analyzer 0 % (0-5); Neutrophil # 6.41 X10^3/uL (2.7-7.7); Neutrophil % 73.8 % (47-70); Platelet Count 316 K/mm3 (150-450); RBC Distribution Width CV 14.8 % (11.6-14.6); RBC Distribution Width SD 46.8 fl (35.1-43.9); Red Blood Count 3.78 M/mm3 (4.6-6.2); White Blood Count 8.7 K/mm3 (4.4-11.0)
[2023-01-22] MEDS: Aspirin 81 MG TAB.CHEW 162 MG PO (06:32)
[2023-01-22] MEDS: Nitroglycerin SL (ED/IMG/CATH) 0.4 MG TABLET SL (06:34)
[2023-01-22 06:59] LABS: Anion Gap 11 (5-15); BUN 54 mg/dL (7-18); BUN/Creat Ratio 4.7 RATIO (10-20); Calcium,Total 9.2 mg/dL (8.5-10.1); Chloride 99 mmol/L (98-107); EST Glomerular Filtration Rate 5 mL/min (>60); Est Glom Filt Rate - Afr Amer 6 mL/min (>60); Estimated Creatinine Clearance 7.58 ml/min; Glucose 135 mg/dL (74-106); Potassium 4.5 mmol/L (3.5-5.1); Sodium Level 137 mmol/L (136-145); Troponin-I HS (w/2H Reflex) 110 pg/mL (3.0-78.0)
--- NOTE | 2023-01-22 07:18 | CT_ITS ---
STUDY: CTA CHEST REASON FOR EXAM: Male, 52 years old. cp/sob RADIATION DOSAGE (If Supplied By Facility): CTDIvol = ( 14.77 ) mGy, DLP = ( 520.75 ) mGycm TECHNIQUE: The examination was performed with the intravenous administration of IV 100mL Isovue-370. Post-processing of the angiographic images was performed, with multiplanar reformation and 3D reconstruction. Individualized dose optimization techniques were used for this CT. COMPARISON: Comparison is made with prior study dated August 01, 2022. The patient is on renal dialysis. FINDINGS: Normal enhancement of the main pulmonary artery and right and left pulmonary arteries. Normal enhancement of the bilateral peripheral pulmonary arteries. There is no demonstrated pulmonary embolism. There is atherosclerotic calcification of the aortic arch with tortuosity. There is no demonstrated aortic dissection. There are calcifications of the coronary arteries. Normal mediastinum. Normal hilar regions. Normal visualized trachea and bronchi. The lungs are well expanded. Once again, there are multiple areas of geographical ground glass appearance involving both lungs. There is evidence of the linear densities in the right middle lobe and lingular segment of the left upper lobe suggestive of atelectasis. Stable tiny calcified granuloma in the left upper lobe. Normal pleura. Normal chest wall structures. There are degenerative changes of thoracic spine. Fatty infiltration of the liver. CT/CTA Chest W/WO Contrast IMPRESSION: No evidence of pulmonary embolism. Geographical areas of groundglass appearance seen in both lungs. This may represent a chronic pneumonitis. Electronically Signed: Kevin Bustos MD at 8:34 EDT ,
[2023-01-22 08:23] LABS: Reflex Troponin-HS? (from REC) Y
[2023-01-22 08:55] LABS: Troponin-I HS 275 pg/mL (3.0-78.0)
--- NOTE | 2023-01-22 09:07 | PCM.HP.STD ---
HPI - General General Date of Admission: 01/22/23 Date of Service: 01/22/23 Chief Complaint: Chest pain/pressure that woke him up HPI Narrative LISA MASTERSON, is a 52 M came to the ER for chest pressure/chest discomfort that woke him up at 5:30 AM. He described that it was severe chest pressure and he could not breathe felt very heavy with radiation to left arm with tingling and numbness in fingers. He said he never had chest pressure or discomfort or anginal pain in the past similar to this one. Patient has history of hypertension and diabetes and morbid obesity but denies family history of cardiac disease in first-degree family relative. All family members are morbidly obese. Her grandmother of brain aneurysm. In ED his blood pressure was high 202/126, MAP 151. Tachycardic 143/min but no tachypnea or hypoxia. First EKG in the ER individually reviewed shows sinus tachycardia at 142 beats Rumer, LAD LVH and nonspecific ST-T changes. Second EKG done is similar with normal sinus rhythm 83 bpm. QTc 491 ms. Patient first troponin was 110-second got high at 275 therefore admitted as ACS/non-STEMI. Patient is also on hemodialysis. [facility], [facility] Medical History Anemia of chronic renal failure, stage 4 (severe) Cardiology follow-up encounter Chronic kidney disease with end stage renal failure on dialysis COPD (chronic obstructive pulmonary disease) CPAP (continuous positive airway pressure) dependence Degenerative disc disease, cervical Demand ischemia Diabetes Diabetes mellitus, type II, insulin dependent Diabetic polyneuropathy (04/2017) Elevated troponin Essential (primary) hypertension Fistula GERD (gastroesophageal reflux disease) High cholesterol History of CHF (congestive heart failure) History of echocardiogram History of stress test Hypertension Hypotension Insulin dependent diabetes mellitus Leg cramps Morbid obesity Non-ischemic cardiomyopathy Non-smoker Obstructive sleep apnea on CPAP Problem with dialysis access Sleep apnea Syncope (07/2018) Systolic and diastolic CHF, acute Wears glasses Wears partial dentures Home Medications aspirin 81 mg chewable tablet 81 mg PO DAILY HEART 08/10/17 [History Last Taken 01/22/23] omeprazole 20 mg capsule,delayed release 20 mg PO BIDAC gerd 08/08/18 [History Last Taken 01/22/23] blood-glucose meter (FreeStyle [place] Lite kit) #1 ea 12/22/19 [Rx Last Taken Unknown] lancets 28 gauge (FreeStyle Lancets) #100 ea 12/22/19 [Rx Last Taken Unknown] pen needle, diabetic 32 gauge x 5/32 (BD Ultra-Fine [place] Pen Needle) #400 ea 12/22/19 [Rx Last Taken Unknown] albuterol sulfate 90 mcg/actuation aerosol inhaler 2 puff inhalation Q6H PRN Shortness Of Breath Or Wheezing 07/26/21 [History Last Taken 01/21/23] atorvastatin 80 mg tablet 80 mg PO QHS 07/26/21 [History Last Taken 01/21/23] carvedilol 25 mg tablet 25 mg PO BID BP 07/26/21 [History Last Taken 01/21/23] ezetimibe 10 mg tablet 10 mg PO DAILY 07/26/21 [History Last Taken 01/21/23] gabapentin 100 mg capsule 200 mg PO QHS 07/26/21 [History Last Taken 01/21/23] insulin detemir U-100 100 unit/mL (3 mL) subcutaneous pen (Levemir FlexTouch U-100 Insulin) 40 unit subcut QHS 07/26/21 [History Last Taken 01/21/23] losartan 50 mg tablet 50 mg PO DAILY 07/26/21 [History Last Taken 01/21/23] sucroferric oxyhydroxide 500 mg chewable tablet (Velphoro) 1,500 mg PO TID 02/20/22 [History Last Taken 01/21/23] amlodipine 10 mg tablet 10 mg PO DAILY 01/22/23 [History Last Taken 01/21/23] insulin aspart U-100 100 unit/mL (3 mL) subcutaneous pen (Novolog FlexPen U-100 Insulin aspart) 15 unit subcut .COMPLEX 01/22/23 [History Last Taken 01/21/23] lanthanum 1,000 mg chewable tablet 3,000 mg PO TIDCM 01/22/23 [History Last Taken 01/21/23] nifedipine 60 mg tablet,extended release 24 hr 60 mg PO DAILY 01/22/23 [History Last Taken 01/21/23] quinine-vitamin E capsule 1 cap PO DAILY 01/22/23 [History Last Taken 01/21/23] sertraline 50 mg tablet 50 mg PO DAILY 01/22/23 [History Last Taken 01/21/23] trazodone 50 mg tablet 50 mg PO QHS 01/22/23 [History Last Taken 01/21/23] vitamin B complex-vitamin C-folic acid 0.8 mg tablet (Leonela-Herbie) 1 tab PO DAILY 01/22/23 [History Last Taken 01/21/23] Allergy/AdvReac Type Severity Reaction Status Date / Time liraglutide [From Victoza] Allergy Unknown unknown Verified 01/22/23 05:58 NSAIDS (Non-Steroidal AdvReac Severe Renal Verified 01/22/23 05:58 Anti-Inflamma failure BLANCA Inhibitors AdvReac Intermediate cough Verified 01/22/23 05:58 Family History Mother Hypertension Grandmother Aneurysm Surgical History History of angioplasty of peripheral vessel (07/2021) Presence of surgically created arteriovenous shunt for hemodialysis (07/2017) Social History household members: spouse housing: house Smoking Status: Never smoker alcohol intake: never substance use type: does not use ROS ROS Narrative Constitutional: Reports acute mild fatigue and weakness. No fever. HEENT: Reports systems reviewed and no addt'l complaints, except as documented Respiratory/Chest: History of COPD. Not on home oxygen. CVS: As described in HPI Gastrointestinal: Denies coffee ground emesis, hematemesis or vomiting Genitourinary: On hemodialysis still makes urine about 100 mL daily. Denies burning urination or new urinary tract symptoms Musculoskeletal: Denies acute joint pain or limited range of motion. No acute injury Neurologic: Denies seizure-like symptoms. skin: No ulcer. No rash Endocrinology: Reports systems reviewed and no addt'l complaints, except as documented Hematologic/Lymphatic: Reports systems reviewed and no addt'l complaints, except as documented Rest 14 ROS are negative except as mentioned in HPI Vital Signs Vital Signs Vital Signs: 01/22/23 05:54 01/22/23 05:59 01/22/23 06:20 Temperature 97.8 F Temperature Source Oral Pulse Rate 143 H 102 H Respiratory Rate 21 H 18 Respiratory Effort Normal Non-Labored Blood Pressure 202/126 H 146/86 H Blood Pressure Mean 151 106 Pulse Ox 95 Oxygen Delivery Method Room Air Room Air 01/22/23 06:20 01/22/23 06:34 01/22/23 07:36 Temperature Temperature Source Pulse Rate 103 H 89 Respiratory Rate 18 Respiratory Effort Blood Pressure 181/114 H 140/102 H Blood Pressure Mean 114 Pulse Ox 96 Oxygen Delivery Method Room Air Room Air Weight Weight: 308 lb 10.354 oz Body Mass Index (BMI) 45.6 Physical Exam Narrative General: Alert, Oriented x3, Cooperative, morbidly obese BMI 45.3 kg/m?. HEENT: Atraumatic, PERRLA, EOMI, Normocephalic Oral: Deep oropharyngeal stricture could not be visualized. Oral mucosa dry. Neck: Supple, No JVD, Negative Carotid Bruits Lungs: Air entry diminished in bilateral lung bases. No crepitation/rhonchi Cardiovascular: Regular rate, Regular Rhythm, Normal S1, Normal S2, systolic murmur LLSB and cardiac apex. Abdomen: Bowel Sounds Present, Soft, Non Tender, Non-Distended : No renal angle tenderness. No suprapubic tenderness. Extremities: Bilateral pitting edema. Edema, Capillary Refill Less than 3 Seconds Skin: No rashes, No breakdown Musculoskeletal: No Tenderness to Palpation of Joints or Extremities Neurological: Cranial nerves II-XII grossly intact, DTR 2+/4. No acute focal neurological deficit. Psych/Mental Status: Normal Affect, Appropriate. Results Lab / Micro Data 01/22/23 06:07 01/22/23 06:07 Labs: Laboratory Results - last 24 hr 01/22/23 06:07: WBC 8.7, RBC 3.78 L, Hgb 10.9 L, Hct 32.7 L, MCV 86.5, MCH 28.8, MCHC 33.3, RDW Std Deviation 46.8 H, RDW Coeff of Kyle 14.8 H, Plt Count 316, MPV 9.5, Immature Gran % (Auto) 0.300, Neut % (Auto) 73.8 H, Lymph % (Auto) 14.8 L, Jenkins % (Auto) 7.9, Eos % (Auto) 2.9, Baso % (Auto) 0.3, Absolute Neuts (auto) 6.4, Absolute Lymphs (auto) 1.29, Nucleated RBC % 0, Sodium 137, Potassium 4.5, Chloride 99, Carbon Dioxide 27.0, Anion Gap 11, BUN 54 H, Creatinine 11.40 H*, Estim Creat Clear Calc 7.58, Est GFR (MDRD) Af Amer 6 L, Est GFR (MDRD) Non-Af 5 L, BUN/Creatinine Ratio 4.7 L, Glucose 135 H, Calcium 9.2, Troponin I High Sens 110 H 01/22/23 08:15: Troponin I High Sens 275 H* Rhythm Strip Rhythm Strip: Sinus Tach Rate: 104 Ectopy: PVC(s) Radiology Impression Chest X-Ray 01/22/23 06:22 IMPRESSION: No radiographic evidence of acute cardiopulmonary disease. Electronically Signed: Harsh Monge MD at 6:51 EDT , Chest CTA 01/22/23 07:18 IMPRESSION: No evidence of pulmonary embolism. Geographical areas of groundglass appearance seen in both lungs. This may represent a chronic pneumonitis. Electronically Signed: Kevin Bustos MD at 8:34 EDT , Assessment & Plan Assessment/Plan (1) NSTEMI, initial episode of care: PLAN: Plan This is a 52-year-old gentleman being admitted for chest pressure sudden onset while sleeping and elevated troponin consistent with non-STEMI 1. Non-STEMI/ACS: Patient is being admitted in PCU. Patient was given aspirin and nitro sublingual. Delta troponin is high. Patient is started on IV heparin drip with bolus. Emergency Vehicle Technician is consulted anticipating cardiac cath. High intensity statin 2. Chronic systolic and diastolic heart failure. 2D echo reviewed. EF 50% lower limit of normal. Patient is on hemodialysis but not on Lasix at home. Currently, his lungs are clear and chest x-ray does not show acute cardiopulmonary abnormality. 3. ESRD on hemodialysis: Entertainment Production Professional is consulted. Patient is on phosphate binder Velphoro and lanthanum continued, can use his own medications. 4. Diabetes mellitus type 2: Causing BMP is 135 therefore well controlled. Continue home dose of Humalog insulin and Lantus insulin. Accu-Chek insulin coverage Humalog sliding scale. 5. Hypertension, uncontrolled: Blood pressure was high in systolic 200 but currently its 111/70. Patient on carvedilol 25 mg twice daily, losartan 50 mg daily. Hold antihypertensive medication with SBP less than 130 mmHg. 6. Morbid obesity BMI is 45.3 kg/m?. 7. COPD and suspected sleep apnea: CPAP ordered. Albuterol inhaler as needed. DVT prophylaxis: Patient high risk due to morbid obesity. On IV heparin drip Living will/advanced directive/end of life care: Patient does not have living will or advanced directive. His is next to kin. After discussion of benefits/risks procedures involved with full code, DNR CC arrest and DNR CC, the patient opted for full code. Patient does want artificial life support including intubation, tube feed, ventilator and/chest compression, central venous catheter, vasopressor and DC shock if needed Total time spent in [id number] encounter in discussion of advanced directive 17 minutes. Laboratory Results 01/22/23 06:07: WBC 8.7, RBC 3.78 L, Hgb 10.9 L, Hct 32.7 L, MCV 86.5, MCH 28.8, MCHC 33.3, RDW Std Deviation 46.8 H, RDW Coeff of Kyle 14.8 H, Plt Count 316, MPV 9.5, Immature Gran % (Auto) 0.300, Neut % (Auto) 73.8 H, Lymph % (Auto) 14.8 L, Jenkins % (Auto) 7.9, Eos % (Auto) 2.9, Baso % (Auto) 0.3, Absolute Neuts (auto) 6.4, Absolute Lymphs (auto) 1.29, Nucleated RBC % 0 Sodium 137, Potassium 4.5, Chloride 99, Carbon Dioxide 27.0, Anion Gap 11, BUN 54 H, Creatinine 11.40 H*, Estim Creat Clear Calc 7.58, Est GFR (MDRD) Af Amer 6 L, Est GFR (MDRD) Non-Af 5 L, BUN/Creatinine Ratio 4.7 L, Glucose 135 H, Calcium 9.2, Troponin I High Sens 110 H 01/22/23 08:15: Troponin I High Sens 275 H* Clinical Impression(s) from Imaging Studies Chest X-Ray 01/22/23 06:22 IMPRESSION: No radiographic evidence of acute cardiopulmonary disease. Electronically Signed: Harsh Monge MD at 6:51 EDT , Chest CTA 01/22/23 07:18 IMPRESSION: No evidence of pulmonary embolism. Geographical areas of groundglass appearance seen in both lungs. This may represent a chronic pneumonitis. Electronically Signed: Kevin Bustos MD at 8:34 EDT , 2D echo in 02/20/2022. Interpretation Summary Normal LV size. Mild concentric left ventricular hypertrophy. Left ventricular systolic function is lower limits of normal. The estimated ejection fraction is 50 %. There is borderline global hypokinesis of the left ventricle. Charges/Coding Visit Charges Inpatient E&M: 07367 Init Hosp L3 Procedures Hospitalists Procedures: 29000 Advncd Care Plan 30 Min
[2023-01-22 09:46] LABS: AST(SGOT) 15 U/L (15-37); Alanine Aminotransfer ALT/SGPT 14 U/L (16-61); Alkaline Phosphatase 57 U/L (45-117); Bilirubin, Direct 0.06 mg/dL (0.00-0.30); Globulin 3.5 g/dL (2.2-4.2); Magnesium 2.3 mg/dL (1.6-2.6); Phosphorus 7.4 mg/dL (2.5-4.9); Protein, Total 6.5 g/dL (6.4-8.2)
[2023-01-22] MEDS: Nitroglycerin Oint 1 INCH PACKET TD ×4 (09:56→23:32)
[2023-01-22] MEDS: HEPARIN/D5w 25,000 UNITS 25,000 UNITS/250 ML IV.SOLN. 10 UNITS CONT INF (10:12)
[2023-01-22] MEDS: Heparin Injection (Vial) 5,000 UNIT/ML VIAL 4000 UNIT IV (10:12)
[2023-01-22] MEDS: 0.9% Normal Saline (1000mL) 1,000 ML 75 ML IV (10:18)
--- NOTE | 2023-01-22 10:30 | ECHOCS_ITS ---
Reason For Study: ACS Procedure This was a 2D Doppler, Color Flow transthoracic echocardiogram. The study was technically difficult. Due to body habitus. Exam performed portable in ICU/CCU. Left Ventricle Moderately dilated left ventricle. Moderate concentric left ventricular hypertrophy. Generalized hypokinesis. Inferior and posterior severe hypokinesis to akinesis. Estimated ejection fraction 35%. Stage 2 diastolic dysfunction. Right Ventricle Normal right ventricle. Atria The left atrium is mildly enlarged. The right atrium is severely enlarged. Mitral Valve Mild (1+) mitral valve insufficiency. Tricuspid Valve Moderately severe (3+) tricuspid valve insufficiency. Right ventricular systolic pressure estimated to be 42 mmHg. Aortic Valve Trisinus/trileaflet aortic valve. Pulmonic Valve The pulmonic valve is not well visualized. Great Vessels Normal sized aortic root. Pericardium/Pleural No pericardial effusion. MMode/2D Measurements & Calculations LVIDd: 6.2 cm IVSd: 1.4 cm Ao root diam: 2.8 cm LVIDs: 4.8 cm LVPWd: 1.4 cm RVDd: 3.4 cm FS: 22.1 % LAV(MOD-bp): 85.6 ml LVAd ap4: 40.7 cm2 LVAd ap2: 36.1 cm2 LAV(MOD-bp) Indexed: 34.6 ml/m2 LVLd ap4: 9.5 cm LVLd ap2: 9.0 cm LAV(MOD-sp2): 93.3 ml EDV(MOD-sp4): 145.7 ml EDV(MOD-sp2): 120.2 ml LAV(MOD-sp4): 75.1 ml EDV(sp4-el): 148.5 ml EDV(sp2-el): 122.9 ml LVAs ap4: 30.8 cm2 LVAs ap2: 27.7 cm2 LVLs ap4: 8.5 cm LVLs ap2: 8.3 cm ESV(MOD-sp4): 91.4 ml ESV(MOD-sp2): 77.4 ml ESV(sp4-el): 94.9 ml ESV(sp2-el): 78.4 ml EF(MOD-sp4): 37.3 % EF(MOD-sp2): 35.6 % EF(sp4-el): 36.1 % SV(MOD-sp4): 54.3 ml SV(MOD-sp2): 42.8 ml SV(sp4-el): 53.7 ml LA dimension(2D): 4.4 cm LA A4 area: 23.7 cm2 RA A4 area: 17.8 cm2 Time Measurements MV dec time: 0.13 sec Doppler Measurements & Calculations MV E max john: 80.7 cm/sec Lat Peak E' John: 7.6 cm/sec Med Peak E' John: 5.3 cm/sec MV A max john: 68.3 cm/sec E/E' lat: 10.6 E/E' med: 15.3 MV E/A: 1.2 MV dec slope: 602.2 cm/sec2 Ao V2 max: 130.9 cm/sec LV V1 max: 67.7 cm/sec Ao max P.9 mmHg LV V1 max P.8 mmHg Ao V2 mean: 92.7 cm/sec LV V1 mean P.0 mmHg Ao mean P.9 mmHg LV V1 mean: 47.6 cm/sec Ao V2 VTI: 26.8 cm LV V1 VTI: 12.1 cm AV (velocity ratio): 0.45 PA V2 max: 72.1 cm/sec TR max john: 283.7 cm/sec PA V2 mean: 54.7 cm/sec TR max P.2 mmHg ECHO/Echo Complete W/ Contrast Interpretation Summary Moderately dilated left ventricle. Moderate concentric left ventricular hypertrophy. Generalized hypokinesis. Inferior and posterior severe hypokinesis to akinesis. Estimated ejection fraction 35%. Stage 2 diastolic dysfunction. The left atrium is mildly enlarged. The right atrium is severely enlarged. Moderately severe (3+) tricuspid valve insufficiency. Right ventricular systolic pressure estimated to be 42 mmHg. The study was technically difficult. Ordering Physician: Leroy Clemons Referring Physician: Norris Mcqueen Performed By: Lissa Palencia, KYLE, RVT
--- NOTE | 2023-01-22 10:30 | EKG12_ITS ---
Test Reason : Blood Pressure : / mmHG Vent. Rate : 083 BPM Atrial Rate : 083 BPM P-R Int : 140 ms QRS Dur : 090 ms QT Int : 418 ms P-R-T Axes : 043 -25 -02 degrees QTc Int : 491 ms Normal sinus rhythm Possible Left atrial enlargement Minimal voltage criteria for LVH, may be normal variant ( R in aVL ) Nonspecific ST and T wave abnormality Prolonged QT Abnormal ECG When compared with ECG of 22-JAN-2023 05:56, MANUAL COMPARISON REQUIRED, DATA IS UNCONFIRMED Confirmed by GA WILLETT, RADHA ([id number]), make up editor JEF MATIAS ([id number]) on 02/12/2023 1:21:06 PM Referred By: JANINA Confirmed By:RADHA KOROMA MD
[2023-01-22 10:34] LABS: International Normalized Ratio 1.1; Prothrombin Time (Protime)PT. 14.6 SECONDS (11.7-14.9)
[2023-01-22 10:35] LABS: Partial Thromboplast Time 32.2 Seconds (24.1-36.2)
--- NOTE | 2023-01-22 12:21 | CON.PCM.RE_ITS ---
Assessment & Plan Assessment/Plan (1) ESRD on dialysis: PLAN: On hemodialysis. Sunday, Sunday, Sunday schedule. Last dialysis was on Sunday. Access is AV fistula. Came in with somewhat classic chest pain, troponins are increasing. Being treated for non-ST elevation ME. Due to ongoing ME, will defer dialysis treatment today. No acute indications otherwise. Will wait for cardiology opinion and decide on dialysis potentially tomorrow. CT PE study negative. Potassium remains normal. Hyperphosphatemia. Can continue home binders. Hypertension. Usually runs higher than normal blood pressures. Appears euvolemic. Blood pressure right now is acceptable. Continue home medications for now. HPI Consult Data Date of Consult: 01/22/23 HPI Narrative Reason for Consultation: ESRD HPI Narrative: LISA MASTERSON, is a 52 M who presents to the hospital with sudden onset chest pain. Nephrology on consultation due to ESRD. On hemodialysis Sunday, , Sunday schedule. Last dialysis was Sunday. In general he runs high blood pressures. Attempts at fluid removal are limited by cramping. Multiple antihypertensives at home. Denies any changes to medications. No edema. Chest pain is resolved since admission to the hospital. Access is AV fistula. [facility] Medical History Anemia of chronic renal failure, stage 4 (severe) Cardiology follow-up encounter Chronic kidney disease with end stage renal failure on dialysis COPD (chronic obstructive pulmonary disease) CPAP (continuous positive airway pressure) dependence Degenerative disc disease, cervical Demand ischemia Diabetes Diabetes mellitus, type II, insulin dependent Diabetic polyneuropathy (04/2017) Elevated troponin Essential (primary) hypertension Fistula GERD (gastroesophageal reflux disease) High cholesterol History of CHF (congestive heart failure) History of echocardiogram History of stress test Hypertension Hypotension Insulin dependent diabetes mellitus Leg cramps Morbid obesity Non-ischemic cardiomyopathy Non-smoker Obstructive sleep apnea on CPAP Problem with dialysis access Sleep apnea Syncope (07/2018) Systolic and diastolic CHF, acute Wears glasses Wears partial dentures Home Medications aspirin 81 mg chewable tablet 81 mg PO DAILY HEART 08/10/17 [History Last Taken 01/22/23] omeprazole 20 mg capsule,delayed release 20 mg PO BIDAC gerd 08/08/18 [History Last Taken 01/22/23] blood-glucose meter (FreeStyle [place] Lite kit) #1 ea 12/22/19 [Rx Last Taken Unknown] lancets 28 gauge (FreeStyle Lancets) #100 ea 12/22/19 [Rx Last Taken Unknown] pen needle, diabetic 32 gauge x 5/32 (BD Ultra-Fine [place] Pen Needle) #400 ea 12/22/19 [Rx Last Taken Unknown] albuterol sulfate 90 mcg/actuation aerosol inhaler 2 puff inhalation Q6H PRN Shortness Of Breath Or Wheezing 07/26/21 [History Last Taken 01/21/23] atorvastatin 80 mg tablet 80 mg PO QHS 07/26/21 [History Last Taken 01/21/23] carvedilol 25 mg tablet 25 mg PO BID BP 07/26/21 [History Last Taken 01/21/23] ezetimibe 10 mg tablet 10 mg PO DAILY 07/26/21 [History Last Taken 01/21/23] gabapentin 100 mg capsule 200 mg PO QHS 07/26/21 [History Last Taken 01/21/23] insulin detemir U-100 100 unit/mL (3 mL) subcutaneous pen (Levemir FlexTouch U- 100 Insulin) 40 unit subcut QHS 07/26/21 [History Last Taken 01/21/23] losartan 50 mg tablet 50 mg PO DAILY 07/26/21 [History Last Taken 01/21/23] sucroferric oxyhydroxide 500 mg chewable tablet (Velphoro) 1,500 mg PO TID 02/20/22 [History Last Taken 01/21/23] amlodipine 10 mg tablet 10 mg PO DAILY 01/22/23 [History Last Taken 01/21/23] insulin aspart U-100 100 unit/mL (3 mL) subcutaneous pen (Novolog FlexPen U-100 Insulin aspart) 15 unit subcut .COMPLEX 01/22/23 [History Last Taken 01/21/23] lanthanum 1,000 mg chewable tablet 3,000 mg PO TIDCM 01/22/23 [History Last Taken 01/21/23] nifedipine 60 mg tablet,extended release 24 hr 60 mg PO DAILY 01/22/23 [History Last Taken 01/21/23] quinine-vitamin E capsule 1 cap PO DAILY 01/22/23 [History Last Taken 01/21/23] sertraline 50 mg tablet 50 mg PO DAILY 01/22/23 [History Last Taken 01/21/23] trazodone 50 mg tablet 50 mg PO QHS 01/22/23 [History Last Taken 01/21/23] vitamin B complex-vitamin C-folic acid 0.8 mg tablet (Leonela-Herbie) 1 tab PO DAILY 01/22/23 [History Last Taken 01/21/23] Allergy/AdvReac Type Severity Reaction Status Date / Time liraglutide [From Victoza] Allergy Unknown unknown Verified 01/22/23 05:58 NSAIDS (Non-Steroidal AdvReac Severe Renal Verified 01/22/23 05:58 Anti-Inflamma failure BLANCA Inhibitors AdvReac Intermediate cough Verified 01/22/23 05:58 Family History Mother Hypertension Grandmother Aneurysm Surgical History History of angioplasty of peripheral vessel (07/2021) Presence of surgically created arteriovenous shunt for hemodialysis (07/2017) Social History household members: spouse housing: house Smoking Status: Never smoker alcohol intake: never substance use type: does not use ROS ROS Narrative Negative except above Physical Exam Narrative Alert awake oriented x 3 no obvious distress no pallor no icterus no JVD s1s2 no murmurs lungs clear abdomen soft no organomegaly no edema no cyanosis Lab / Micro Data 01/22/23 06:07 01/22/23 06:07 Labs: Laboratory Results - last 24 hr 01/22/23 06:07: WBC 8.7, RBC 3.78 L, Hgb 10.9 L, Hct 32.7 L, MCV 86.5, MCH 28.8, MCHC 33.3, RDW Std Deviation 46.8 H, RDW Coeff of Kyle 14.8 H, Plt Count 316, MPV 9.5, Immature Gran % (Auto) 0.300, Neut % (Auto) 73.8 H, Lymph % (Auto) 14.8 L, Hendry % (Auto) 7.9, Eos % (Auto) 2.9, Baso % (Auto) 0.3, Absolute Neuts (auto) 6.4, Absolute Lymphs (auto) 1.29, Nucleated RBC % 0, Sodium 137, Potassium 4.5, Chloride 99, Carbon Dioxide 27.0, Anion Gap 11, BUN 54 H, Creatinine 11.40 H*, Estim Creat Clear Calc 7.58, Est GFR (MDRD) Af Amer 6 L, Est GFR (MDRD) Non-Af 5 L, BUN/Creatinine Ratio 4.7 L, Glucose 135 H, Calcium 9.2, Troponin I High Sens 110 H 01/22/23 08:15: Phosphorus 7.4 H, Magnesium 2.3, Total Bilirubin 0.30, Direct Bilirubin 0.06, AST 15, ALT 14 L, Alkaline Phosphatase 57, Troponin I High Sens 275 H*, Total Protein 6.5, Albumin 3.0 L, Globulin 3.5 01/22/23 10:10: PT 14.6, INR 1.1, APTT 32.2 Rhythm Strip Rhythm Strip: Sinus Tach Rate: 104 Ectopy: PVC(s) Radiology Impression Chest X-Ray 01/22/23 06:22 IMPRESSION: No radiographic evidence of acute cardiopulmonary disease. Electronically Signed: Harsh Monge MD at 6:51 EDT , Chest CTA 01/22/23 07:18 IMPRESSION: No evidence of pulmonary embolism. Geographical areas of groundglass appearance seen in both lungs. This may represent a chronic pneumonitis. Electronically Signed: Kevin Bustos MD at 8:34 EDT ,
[2023-01-22 12:35] LABS: Troponin-I HS 790 pg/mL (3.0-78.0)
[2023-01-22 12:54] LABS: Bedside Glucose 107 mg/dL (74-106)
[2023-01-22] MEDS: Carvedilol 25 MG Tablet PO ×2 (13:49→21:49)
[2023-01-22] MEDS: Losartan Potassium 50 MG Tablet PO (13:49)
[2023-01-22] MEDS: amLODIPine 10 MG Tablet PO (13:49)
[2023-01-22] MEDS: Heparin Injection (Vial) 5,000 UNIT/ML VIAL IV (13:59)
--- NOTE | 2023-01-22 14:40 | CON.PCM.CA_ITS ---
Assessment & Plan Assessment/Plan (1) NSTEMI, initial episode of care: PLAN: Continue aspirin. Patient anticoagulated with heparin. Continue. Beta- blockers. Further course of action discussed with patient in detail. Coronary angiography with possible revascularization was offered. Risks benefits and alternatives were explained. He understands these and wishes to proceed. We will schedule him for coronary angiography in the morning. (2) Non-ischemic cardiomyopathy: PLAN: History of nonischemic cardiomyopathy. Will check 2D echocardiogram with Doppler. (3) Essential (primary) hypertension: PLAN: Beta-blockers, losartan, amlodipine. It is also noted that the patient is on nifedipine besides amlodipine. We will stop nifedipine. (4) ESRD on dialysis: PLAN: As per nephrology. (5) Morbid obesity: PLAN: Lose weight. (6) Dyslipidemia: PLAN: On atorvastatin. HPI Consult Data Date of Consult: 01/22/23 HPI Narrative Reason for Consultation: NSTEMI HPI Narrative: This gentleman describes a past medical history significant for congestive heart failure. He also has history of dyslipidemia and chronic kidney disease on hemodialysis. According to him, he woke up early this morning with anterior chest discomfort that radiated down his left arm. No previous history of angina pectoris. On arrival to the emergency room, he was noted to be tachycardic. His heart rate subsequently settled down. His chest pain resolved with improvement in his heart rate. Work-up revealed elevated troponins ruling him in for NSTEMI. Presently he is chest pain-free. [facility] Medical History Anemia of chronic renal failure, stage 4 (severe) Cardiology follow-up encounter Chronic kidney disease with end stage renal failure on dialysis COPD (chronic obstructive pulmonary disease) CPAP (continuous positive airway pressure) dependence Degenerative disc disease, cervical Demand ischemia Diabetes Diabetes mellitus, type II, insulin dependent Diabetic polyneuropathy (04/2017) Elevated troponin Essential (primary) hypertension Fistula GERD (gastroesophageal reflux disease) High cholesterol History of CHF (congestive heart failure) History of echocardiogram History of stress test Hypertension Hypotension Insulin dependent diabetes mellitus Leg cramps Morbid obesity Non-ischemic cardiomyopathy Non-smoker Obstructive sleep apnea on CPAP Problem with dialysis access Sleep apnea Syncope (07/2018) Systolic and diastolic CHF, acute Wears glasses Wears partial dentures Home Medications aspirin 81 mg chewable tablet 81 mg PO DAILY HEART 08/10/17 [History Last Taken 01/22/23] omeprazole 20 mg capsule,delayed release 20 mg PO BIDAC gerd 08/08/18 [History Last Taken 01/22/23] blood-glucose meter (FreeStyle Kennan Lite kit) #1 ea 12/22/19 [Rx Last Taken Unknown] lancets 28 gauge (FreeStyle Lancets) #100 ea 12/22/19 [Rx Last Taken Unknown] pen needle, diabetic 32 gauge x 5/32 (BD Ultra-Fine China Pen Needle) #400 ea 12/22/19 [Rx Last Taken Unknown] albuterol sulfate 90 mcg/actuation aerosol inhaler 2 puff inhalation Q6H PRN Shortness Of Breath Or Wheezing 07/26/21 [History Last Taken 01/21/23] atorvastatin 80 mg tablet 80 mg PO QHS 07/26/21 [History Last Taken 01/21/23] carvedilol 25 mg tablet 25 mg PO BID BP 07/26/21 [History Last Taken 01/21/23] ezetimibe 10 mg tablet 10 mg PO DAILY 07/26/21 [History Last Taken 01/21/23] gabapentin 100 mg capsule 200 mg PO QHS 07/26/21 [History Last Taken 01/21/23] insulin detemir U-100 100 unit/mL (3 mL) subcutaneous pen (Levemir FlexTouch U- 100 Insulin) 40 unit subcut QHS 07/26/21 [History Last Taken 01/21/23] losartan 50 mg tablet 50 mg PO DAILY 07/26/21 [History Last Taken 01/21/23] sucroferric oxyhydroxide 500 mg chewable tablet (Velphoro) 1,500 mg PO TID 02/20/22 [History Last Taken 01/21/23] amlodipine 10 mg tablet 10 mg PO DAILY 01/22/23 [History Last Taken 01/21/23] insulin aspart U-100 100 unit/mL (3 mL) subcutaneous pen (Novolog FlexPen U-100 Insulin aspart) 15 unit subcut .COMPLEX 01/22/23 [History Last Taken 01/21/23] lanthanum 1,000 mg chewable tablet 3,000 mg PO TIDCM 01/22/23 [History Last Taken 01/21/23] nifedipine 60 mg tablet,extended release 24 hr 60 mg PO DAILY 01/22/23 [History Last Taken 01/21/23] quinine-vitamin E capsule 1 cap PO DAILY 01/22/23 [History Last Taken 01/21/23] sertraline 50 mg tablet 50 mg PO DAILY 01/22/23 [History Last Taken 01/21/23] trazodone 50 mg tablet 50 mg PO QHS 01/22/23 [History Last Taken 01/21/23] vitamin B complex-vitamin C-folic acid 0.8 mg tablet (Leonela-Herbie) 1 tab PO DAILY 01/22/23 [History Last Taken 01/21/23] Allergy/AdvReac Type Severity Reaction Status Date / Time liraglutide [From Victoza] Allergy Unknown unknown Verified 01/22/23 05:58 NSAIDS (Non-Steroidal AdvReac Severe Renal Verified 01/22/23 05:58 Anti-Inflamma failure BLANCA Inhibitors AdvReac Intermediate cough Verified 01/22/23 05:58 Family History Mother Hypertension Grandmother Aneurysm Surgical History History of angioplasty of peripheral vessel (07/2021) Presence of surgically created arteriovenous shunt for hemodialysis (07/2017) Social History household members: spouse housing: house Smoking Status: Never smoker alcohol intake: never substance use type: does not use Physical Exam Const Constitutional Narrative: Comfortable. No apparent distress. Obese. Heart sounds 1 and 2 noted. Chest examination shows decreased breath sounds both bases. Abdomen obese. Alert oriented x3. No ankle edema noted. Risk Stratification Risk Stratification Applicable: No Objective Data Vital Signs: Vital Signs Temp Pulse Resp BP Pulse Ox O2 Del Method O2 Flow Rate 97.1 F L 84 16 129/79 H 98 Room Air 2 01/22/23 10:30 01/22/23 10:30 01/22/23 10:30 01/22/23 10:30 01/22/23 10:30 01/22/23 13:45 01/22/23 10:30 Oxygen Flow Rate (L/min) 2 Oxygen Delivery Method Room Air Weight: 306 lb 9 oz Body Mass Index (BMI) 45.2 Intake & Output: Intake and Output for Last 24 Hours 01/20/23 01/21/23 01/22/23 23:59 23:59 23:59 Intake Total 37.33 / 37.33 Balance 37.33 / 37.33 Lab / Micro Data Attestation: I reviewed the patient's lab results. 01/22/23 06:07 01/22/23 06:07 Labs: Laboratory Results - last 24 hr 01/22/23 06:07: WBC 8.7, RBC 3.78 L, Hgb 10.9 L, Hct 32.7 L, MCV 86.5, MCH 28.8, MCHC 33.3, RDW Std Deviation 46.8 H, RDW Coeff of Kyle 14.8 H, Plt Count 316, MPV 9.5, Immature Gran % (Auto) 0.300, Neut % (Auto) 73.8 H, Lymph % (Auto) 14.8 L, [place] % (Auto) 7.9, Eos % (Auto) 2.9, Baso % (Auto) 0.3, Absolute Neuts (auto) 6.4, Absolute Lymphs (auto) 1.29, Nucleated RBC % 0, Sodium 137, Potassium 4.5, Chloride 99, Carbon Dioxide 27.0, Anion Gap 11, BUN 54 H, Creatinine 11.40 H*, Estim Creat Clear Calc 7.58, Est GFR (MDRD) Af Amer 6 L, Est GFR (MDRD) Non-Af 5 L, BUN/Creatinine Ratio 4.7 L, Glucose 135 H, Calcium 9.2, Troponin I High Sens 110 H 01/22/23 08:15: Phosphorus 7.4 H, Magnesium 2.3, Total Bilirubin 0.30, Direct Bilirubin 0.06, AST 15, ALT 14 L, Alkaline Phosphatase 57, Troponin I High Sens 275 H*, Total Protein 6.5, Albumin 3.0 L, Globulin 3.5 01/22/23 10:10: PT 14.6, INR 1.1, APTT 32.2 01/22/23 12:00: Troponin I High Sens 790 H* 01/22/23 12:35: POC Glucose 107 H Rhythm Strip Rhythm Strip: Sinus Rhythm Rate: 98 Cardiology Labs/Tests 01/22/23 06:07: WBC 8.7, RBC 3.78 L, Hgb 10.9 L, Hct 32.7 L, MCV 86.5, MCH 28.8, MCHC 33.3, Plt Count 316, MPV 9.5, Immature Gran % (Auto) 0.300, Neut % (Auto) 7 3.8 H, Lymph % (Auto) 14.8 L, [place] % (Auto) 7.9, Eos % (Auto) 2.9, Baso % (Auto) 0.3, Absolute Neuts (auto) 6.4, Nucleated RBC % 0, Sodium 137, Potassium 4.5, Chloride 99, Carbon Dioxide 27.0, Anion Gap 11, BUN 54 H, Creatinine 11.40 H*, Est GFR (MDRD) Af Amer 6 L, Est GFR (MDRD) Non-Af 5 L, BUN/Creatinine Ratio 4.7 L, Glucose 135 H, Calcium 9.2 01/22/23 08:15: Phosphorus 7.4 H, Magnesium 2.3, Total Bilirubin 0.30, Direct Bilirubin 0.06 01/22/23 10:10: PT 14.6, INR 1.1, APTT 32.2 Rhythm: EKG: Initial ECG in the emergency room showed sinus tachycardia with ST segment changes in the high lateral leads suggestive of ischemia. Subsequent ECGs tamiko wed nonspecific ST changes ECHO: Stress Test: Cardiac Cath: PCI: CT Surgery: Holter monitor: EPS: PPM: CXR: Chest CT Scan: Radiography Diagnostic Testing: Radiology Impression Chest X-Ray 01/22/23 06:22 IMPRESSION: No radiographic evidence of acute cardiopulmonary disease. Electronically Signed: Harsh Monge MD at 6:51 EDT , Chest CTA 01/22/23 07:18 IMPRESSION: No evidence of pulmonary embolism. Geographical areas of groundglass appearance seen in both lungs. This may represent a chronic pneumonitis. Electronically Signed: Kevin Bustos MD at 8:34 EDT ,
--- NOTE | 2023-01-22 15:10 | CASEMGMT ---
Insurance review for hospitals In-network with?[facility] insurance if transfer is recommended is as follows:. [facility], [place], [facility], [facility], [facility], [facility], [facility]), and . Discharge Planning Asst.
[2023-01-22 16:50] LABS: Bedside Glucose 130 mg/dL (74-106)
[2023-01-22] MEDS: Pantoprazole Sodium 20 MG Tablet PO (16:58)
[2023-01-22] MEDS: LANTHANUM CARBONATE 1,000 MG TAB.CHEW 3000 MG PO (16:59)
[2023-01-22] MEDS: SUCROFERRIC OXYHYDROXIDE 500 MG TAB.CHEW 1500 MG PO (16:59)
[2023-01-22] MEDS: Atorvastatin Calcium 80 MG Tablet PO (21:49)
[2023-01-22] MEDS: Gabapentin 100 MG Capsule 200 MG PO (21:49)
[2023-01-22] MEDS: Acetaminophen 325 MG Tablet 650 MG PO (21:51)
[2023-01-22] MEDS: Insulin Glargine-YFGN 100 UNIT/ML Pen 35 UNIT SC (21:54)
[2023-01-22 22:06] LABS: Partial Thromboplast Time 233.4 Seconds (24.1-36.2)
[2023-01-22 23:04] LABS: Bedside Glucose 175 mg/dL (74-106)
[2023-01-22] MEDS: Ondansetron 4 MG/2 ML Vial IV (23:32)
[2023-01-22] MEDS: 0.9% Saline Lock 10 ML Syringe IV (23:38)
[2023-01-23] VITALS (19 sets, daily range): BP systolic 108–314; BP diastolic 50–115; PULSE 73–84; RESP 12–20; TEMP 35.6–36.4; O2SAT 90–100; BMI 45.3; BMI 45.1
[2023-01-23] MEDS: Nitroglycerin Oint 1 INCH PACKET TD (06:46)
[2023-01-23] MEDS: Pantoprazole Sodium 20 MG Tablet PO ×2 (06:46→18:18)
[2023-01-23 06:59] LABS: Absolute Lymphocyte Count 1.21 X10^3/uL (0.83-4.51); Absolute Neutrophil Count 4.7 X10^3/uL (2.0-7.7); Basophil# 0.05 X10^3/uL; Basophil% 0.7 % (0-1); Eosinophil# 0.22 X10^3/uL; Eosinophils% 3.3 % (0-5); Hematocrit 30.1 % (40-54); Hemoglobin 9.7 g/dL (13.0-16.5); Lymphocyte # 1.21 X10^3/ul (0.83-4.51); Lymphocyte % 17.9 % (19-41); Mean Corp Hgb Conc 32.2 g/dL (32-36); Mean Corpuscular Hgb 28.4 pg (27.0-32.0); Mean Corpuscular Volume 88.3 fL (80-94); Mean Platelet Vol. 9.6 fl (6.2-12.0); Monocyte# 0.59 X10^3/uL; Monocyte% 8.7 % (0-10); NRBC Flagged by Analyzer 0 % (0-5); Neutrophil # 4.67 X10^3/uL (2.7-7.7); Neutrophil % 69.1 % (47-70); Platelet Count 294 K/mm3 (150-450); RBC Distribution Width CV 14.8 % (11.6-14.6); RBC Distribution Width SD 47.8 fl (35.1-43.9); Red Blood Count 3.41 M/mm3 (4.6-6.2); White Blood Count 6.8 K/mm3 (4.4-11.0)
[2023-01-23 07:38] LABS: ALB/GLOB Ratio 0.9 RATIO (0.9-2.4); AST(SGOT) 12 U/L (15-37); Alanine Aminotransfer ALT/SGPT 20 U/L (16-61); Albumin, Serum 3.3 g/dL (3.2-5.0); Alkaline Phosphatase 65 U/L (45-117); Anion Gap 7 (5-15); BUN 64 mg/dL (7-18); Calcium,Total 8.8 mg/dL (8.5-10.1); Chloride 98 mmol/L (98-107); Cholesterol 91 mg/dL (200); EST Glomerular Filtration Rate 4 mL/min (>60); Est Glom Filt Rate - Afr Amer 5 mL/min (>60); Estimated Creatinine Clearance 6.75 ml/min; Globulin 3.7 g/dL (2.2-4.2); Glucose 134 mg/dL (74-106); High Density Lipoprotein 33 mg/dL; Potassium 6.2 mmol/L (3.5-5.1); Sodium Level 134 mmol/L (136-145); Triglycerides 74 mg/dL; Very Low Density Lipoprotein 15 mg/dL (5-40)
[2023-01-23 08:10] LABS: Bedside Glucose 138 mg/dL (74-106)
[2023-01-23] MEDS: Aspirin E.C. 81 MG Tablet PO (08:19)
[2023-01-23] MEDS: LANTHANUM CARBONATE 1,000 MG TAB.CHEW 3000 MG PO ×2 (08:22→18:18)
[2023-01-23] MEDS: SUCROFERRIC OXYHYDROXIDE 500 MG TAB.CHEW 1500 MG PO ×2 (08:23→18:18)
[2023-01-23] MEDS: Losartan Potassium 50 MG Tablet PO (08:24)
[2023-01-23] MEDS: Folic Acid/Vitamin B Comp W-C 1 Capsule 1 CAP PO (08:25)
[2023-01-23] MEDS: Ezetimibe 10 MG Tablet PO (08:26)
[2023-01-23] MEDS: Sertraline 50 MG Tablet PO (08:26)
[2023-01-23] MEDS: amLODIPine 10 MG Tablet PO (08:26)
[2023-01-23] MEDS: Carvedilol 25 MG Tablet PO ×2 (08:34→20:53)
[2023-01-23 08:52] LABS: Partial Thromboplast Time 38.2 Seconds (24.1-36.2)
[2023-01-23] MEDS: Heparin Injection (Vial) 5,000 UNIT/ML VIAL IV (10:15)
--- NOTE | 2023-01-23 10:46 | CASEMGMT ---
Addendum entered by Winnie Tran 01/23/23 11:28: Pt and state would like to get any new medications from [facility] Retail pharmacy at discharge. Original Note: RN?CM?BUTTER MAKER?CM?to room to meet with patient for initial transition planning/care coordination?assessment.?RN?CM?introduced self and role at [facility].? Pt voices understanding and consents to?assessment?at this time.? Pt sitting up chair in room in no distress at this time.? @ bedside. Pt is A/O at this time and answers all questions appropriately.?? Care providers, pharmacy, and demographics verified/updated at this time. PCP: Dr Mcqueen Specialists: Dr Lamar-nephrology. Goes to [facility] for OP HD MWF, chair time 7:[address] Nevarez-cardiology. Dr Hernandez-endocrinology Preferred Pharmacy: [facility] Insurance: [employer] Prescription Benefit:?Yes Living Will/HPOA:?Pt does not currently have LW/HCPOA and would like to complete. SW, Niya, made aware . Pt and made aware, if SW unable to meet w/him while @ [facility], this can be completed as an OP. Voices understanding. LNOK: , Shyanne. 2 children: daughter is 24, son is 11 Living Arrangements: Lives w/, mom, 11-yr-old son, and niece, who they raise. They live in 2-story home. Bedroom and bath on 2nd floor. Bath also on main floor. Independent w/ADL's, manages his own medications, and does most of the cooking. manages most other home tasks. Transportation:?Pt states drives self and states no transportation concerns at this time.? also drives. DME: States has the following DME:?functioning glucometer w/supplies, CPAP ?Pt states no need for further DME at this time.? HHC/SNF: No hx of either. No needs identified. Pt wishes to return home and states has no concerns with going home at time of discharge.?CM?to follow for any discharge planning/needs.? Pt and voice no concerns/needs at this time.? Advised them to ask for?CM?if any further questions/concerns/needs arise.? They voice understanding. PLAN:??Home Flores BSN?RN?CM
[2023-01-23] MEDS: 0.9% Normal Saline 1,000 ML IV.SOLN. 1000 ML OPERA.SITE (11:46)
[2023-01-23] MEDS: PureFlow B 2K Dialysis Soln 1 BAG 6 BAG PF (11:47)
--- NOTE | 2023-01-23 12:14 | PCM.PN.REN ---
Subjective Subjective No new complaints today. Scheduled for coronary angiogram today Objective Data Objective Data Vital Signs: Vital Signs Temp Pulse Resp BP Pulse Ox O2 Del Method O2 Flow Rate 97.5 F L 73 18 122/88 H 100 Nasal Cannula 2 01/22/23 22:00 01/23/23 11:57 01/23/23 11:57 01/23/23 11:57 01/23/23 11:57 01/23/23 11:57 01/23/23 11:57 Oxygen Flow Rate (L/min) 2 Oxygen Delivery Method Nasal Cannula Weight: 139.1 kg Body Mass Index (BMI) 45.3 Intake & Output: Intake and Output for Last 24 Hours 01/21/23 01/22/23 01/23/23 23:59 23:59 23:59 Intake Total 392.53 / 592.53 1280.85 / 1280.85 Balance 392.53 / 592.53 1280.85 / 1280.85 Lab / Micro Data 01/23/23 06:43 01/23/23 06:43 Labs: Laboratory Results - last 24 hr 01/22/23 12:00: Troponin I High Sens 790 H* 01/22/23 12:35: POC Glucose 107 H 01/22/23 16:32: POC Glucose 130 H 01/22/23 21:22: POC Glucose 175 H 01/22/23 21:23: APTT 233.4 H* 01/23/23 06:41: POC Glucose 138 H 01/23/23 06:43: WBC 6.8, RBC 3.41 L, Hgb 9.7 L, Hct 30.1 L, MCV 88.3, MCH 28.4, MCHC 32.2, RDW Std Deviation 47.8 H, RDW Coeff of Kyle 14.8 H, Plt Count 294, MPV 9.6, Immature Gran % (Auto) 0.300, Neut % (Auto) 69.1, Lymph % (Auto) 17.9 L, Mccreary % (Auto) 8.7, Eos % (Auto) 3.3, Baso % (Auto) 0.7, Absolute Neuts (auto) 4.7, Absolute Lymphs (auto) 1.21, Nucleated RBC % 0, Sodium 134 L, Potassium 6.2 H*, Chloride 98, Carbon Dioxide 29.0, Anion Gap 7, BUN 64 H, Creatinine 12.80 H*, Estim Creat Clear Calc 6.75, Est GFR (MDRD) Af Amer 5 L, Est GFR (MDRD) Non-Af 4 L, BUN/Creatinine Ratio 5.0 L, Glucose 134 H, Calcium 8.8, Total Bilirubin 0.30, AST 12 L, ALT 20, Alkaline Phosphatase 65, Total Protein 7.0, Albumin 3.3, Globulin 3.7, Albumin/Globulin Ratio 0.9, Triglycerides 74, Cholesterol 91, LDL Cholesterol 43, VLDL Cholesterol 15, HDL Cholesterol 33 L, TSH 2.10 01/23/23 08:15: APTT 38.2 H Radiography Diagnostic Testing: Radiology Impression Echocardiogram 01/22/23 10:30 Interpretation Summary Moderately dilated left ventricle. Moderate concentric left ventricular hypertrophy. Generalized hypokinesis. Inferior and posterior severe hypokinesis to akinesis. Estimated ejection fraction 35%. Stage 2 diastolic dysfunction. The left atrium is mildly enlarged. The right atrium is severely enlarged. Moderately severe (3+) tricuspid valve insufficiency. Right ventricular systolic pressure estimated to be 42 mmHg. The study was technically difficult. Ordering Physician: Leroy Clemons Referring Physician: Norris Mcqueen Performed By: Lissa Palencia, KYLE, RVT Rhythm Strip Rhythm Strip: Sinus Rhythm Rate: 98 Ectopy: PVC(s) Physical Exam Narrative Alert awake oriented x 3 no obvious distress no pallor no icterus no JVD s1s2 no murmurs lungs clear abdomen soft no organomegaly no edema no cyanosis Assessment & Plan Assessment/Plan (1) ESRD on dialysis: PLAN: On hemodialysis. Sunday, Sunday, Sunday schedule. Last dialysis was on Sunday. Access is AV fistula. Came in with somewhat classic chest pain, troponins are increasing. Being treated for non-ST elevation OH. For coronary angiogram today Hyperphosphatemia. Can continue home binders. Hypertension. Usually runs higher than normal blood pressures. Appears euvolemic. Blood pressure right now is acceptable. Hyperkalemia. We will plan for dialysis today before coronary angiogram Discussed with cardiology
[2023-01-23] MEDS: HEPARIN/D5w 25,000 UNITS 25,000 UNITS/250 ML IV.SOLN. 11 UNITS CONT INF (12:29)
[2023-01-23 12:54] LABS: Bedside Glucose 64 mg/dL (74-106)
[2023-01-23] MEDS: Dextrose 50%-Water 25 GM/50 ML DISP.SYRIN IV (12:57)
[2023-01-23] MEDS: 0.9% Saline Lock 10 ML Syringe IV (12:58)
--- NOTE | 2023-01-23 13:09 | PN.HOSP_ITS ---
Reason for Visit Reason for Visit: Diagnoses Morbid (severe) obesity due to excess calories (01/22/23) Hyperlipidemia, unspecified (01/22/23) Essential (primary) hypertension (01/22/23) Non-ST elevation (NSTEMI) myocardial infarction (01/22/23) Other cardiomyopathies (01/22/23) End stage renal disease (01/22/23) Dependence on renal dialysis (01/22/23) Objective Data Objective Data Vital Signs: Vital Signs Temp Pulse Resp BP Pulse Ox O2 Del Method O2 Flow Rate 97.5 F L 75 14 132/115 H 100 Nasal Cannula 2 01/22/23 22:00 01/23/23 13:00 01/23/23 13:00 01/23/23 13:00 01/23/23 13:00 01/23/23 13:00 01/23/23 13:00 Oxygen Flow Rate (L/min) 2 Oxygen Delivery Method Nasal Cannula Weight: 306 lb 10.608 oz Body Mass Index (BMI) 45.3 Intake & Output: Intake and Output for Last 24 Hours 01/21/23 01/22/23 01/23/23 23:59 23:59 23:59 Intake Total 392.53 / 592.53 1297.47 / 1297.47 Balance 392.53 / 592.53 1297.47 / 1297.47 Lab / Micro Data 01/23/23 06:43 01/23/23 06:43 Labs: Laboratory Results - last 24 hr 01/22/23 16:32: POC Glucose 130 H 01/22/23 21:22: POC Glucose 175 H 01/22/23 21:23: APTT 233.4 H* 01/23/23 06:41: POC Glucose 138 H 01/23/23 06:43: WBC 6.8, RBC 3.41 L, Hgb 9.7 L, Hct 30.1 L, MCV 88.3, MCH 28.4, MCHC 32.2, RDW Std Deviation 47.8 H, RDW Coeff of Kyle 14.8 H, Plt Count 294, MPV 9.6, Immature Gran % (Auto) 0.300, Neut % (Auto) 69.1, Lymph % (Auto) 17.9 L, George % (Auto) 8.7, Eos % (Auto) 3.3, Baso % (Auto) 0.7, Absolute Neuts (auto) 4.7, Absolute Lymphs (auto) 1.21, Nucleated RBC % 0, Sodium 134 L, Potassium 6.2 H*, Chloride 98, Carbon Dioxide 29.0, Anion Gap 7, BUN 64 H, Creatinine 12.80 H* , Estim Creat Clear Calc 6.75, Est GFR (MDRD) Af Amer 5 L, Est GFR (MDRD) Non-Af 4 L, BUN/Creatinine Ratio 5.0 L, Glucose 134 H, Calcium 8.8, Total Bilirubin 0.30, AST 12 L, ALT 20, Alkaline Phosphatase 65, Total Protein 7.0, Albumin 3.3, Globulin 3.7, Albumin/Globulin Ratio 0.9, Triglycerides 74, Cholesterol 91, LDL Cholesterol 43, VLDL Cholesterol 15, HDL Cholesterol 33 L, TSH 2.10 01/23/23 08:15: APTT 38.2 H 01/23/23 12:26: POC Glucose 64 L Radiography Diagnostic Testing: Radiology Impression Echocardiogram 01/22/23 10:30 Interpretation Summary Moderately dilated left ventricle. Moderate concentric left ventricular hypertrophy. Generalized hypokinesis. Inferior and posterior severe hypokinesis to akinesis. Estimated ejection fraction 35%. Stage 2 diastolic dysfunction. The left atrium is mildly enlarged. The right atrium is severely enlarged. Moderately severe (3+) tricuspid valve insufficiency. Right ventricular systolic pressure estimated to be 42 mmHg. The study was technically difficult. Rhythm Strip Rhythm Strip: Sinus Rhythm Rate: 98 Ectopy: PVC(s) Physical Exam Narrative Seen and examined. Currently patient is comfortable on baseline. Denies any chest pain or shortness of breath. Serum potassium high could coatings acute Physical exam General: Alert, Oriented x3, Cooperative, morbidly obese BMI 45.3 kg/m?. HEENT: Atraumatic, PERRLA, EOMI, Normocephalic Oral: Deep oropharyngeal stricture could not be visualized. Oral mucosa moist. Neck: Supple, No JVD, Negative Carotid Bruits Lungs: Air entry diminished in bilateral lung bases. No crepitation/rhonchi Cardiovascular: Regular rate, Regular Rhythm, Normal S1, Normal S2, systolic murmur LLSB and cardiac apex. Abdomen: Bowel Sounds Present, Soft, Non Tender, Non-Distended : No renal angle tenderness. No suprapubic tenderness. Extremities: Bilateral pitting edema. Edema, Capillary Refill Less than 3 Seconds Skin: No rashes, No breakdown Musculoskeletal: No Tenderness to Palpation of Joints or Extremities Neurological: Cranial nerves II-XII grossly intact, DTR 2+/4. No acute focal neurological deficit. Psych/Mental Status: Normal Affect, Appropriate. Assessment & Plan Assessment/Plan (1) NSTEMI, initial episode of care: PLAN: Plan This is a 52-year-old gentleman being admitted for chest pressure sudden onset while sleeping and elevated troponin consistent with non-STEMI 1. Non-STEMI/ACS: Patient is being admitted in PCU. Patient was given aspirin and nitro sublingual. Delta troponin is high. Patient is started on IV heparin drip with bolus. Blueprint Tracer is consulted anticipating cardiac cath. High intensity statin 01/23: 2D echo reported moderately dilated LV with severe hypokinesis to akinesis of inferior and posterior. EF 35%, stage II diastolic dysfunction 3+ TR, RVSP 42 mmHg right atrium severely enlarged. Plan for cardiac cath after hemodialysis 2. Chronic systolic and diastolic, combined heart failure. 2D echo reviewed. EF 50% lower limit of normal. Patient is on hemodialysis but not on Lasix at home. Currently, his lungs are clear and chest x-ray does not show acute cardiopulmonary abnormality. 01/23: 2D echo on 01/22 as mentioned above. Patient on hemodialysis. 3. ESRD on hemodialysis: Rivet Hole Machine Operator is consulted. Patient is on phosphate binder Velphoro and lanthanum continued, can use his own medications. 01/23: Severe hypokalemia, critical result. Rivet Hole Machine Operator is dialyzing before the cardiac cath. 4. Diabetes mellitus type 2: Causing BMP is 135 therefore well controlled. Continue home dose of Humalog insulin and Lantus insulin. Accu-Chek insulin coverage Humalog sliding scale. 5. Hypertension, uncontrolled: Blood pressure was high in systolic 200 but currently its 111/70. Patient on carvedilol 25 mg twice daily, losartan 50 mg daily. Hold antihypertensive medication with SBP less than 130 mmHg. 6. Morbid obesity BMI is 45.3 kg/m?. 7. COPD and suspected sleep apnea: CPAP ordered. Albuterol inhaler as needed. DVT prophylaxis: Patient high risk due to morbid obesity. On IV heparin drip Living will/advanced directive/end of life care: Patient does not have living will or advanced directive. His is next to kin. After discussion of benefits/risks procedures involved with full code, DNR CC arrest and DNR CC, the patient opted for full code. Patient does want artificial life support including intubation, tube feed, ventilator and/chest compression, central venous catheter, vasopressor and DC s hock if needed 2D echo Moderately dilated left ventricle. Moderate concentric left ventricular hypertrophy. Generalized hypokinesis. Inferior and posterior severe hypokinesis to akinesis. Estimated ejection fraction 35%. Stage 2 diastolic dysfunction. The left atrium is mildly enlarged. The right atrium is severely enlarged. Moderately severe (3+) tricuspid valve insufficiency. Right ventricular systolic pressure estimated to be 42 mmHg. Laboratory Results 01/22/23 06:07: WBC 8.7, RBC 3.78 L, Hgb 10.9 L, Hct 32.7 L, MCV 86.5, MCH 28.8, MCHC 33.3, RDW Std Deviation 46.8 H, RDW Coeff of Kyle 14.8 H, Plt Count 316, MPV 9.5, Immature Gran % (Auto) 0.300, Neut % (Auto) 73.8 H, Lymph % (Auto) 14.8 L, George % (Auto) 7.9, Eos % (Auto) 2.9, Baso % (Auto) 0.3, Absolute Neuts (auto) 6.4, Absolute Lymphs (auto) 1.29, Nucleated RBC % 0 Sodium 137, Potassium 4.5, Chloride 99, Carbon Dioxide 27.0, Anion Gap 11, BUN 54 H, Creatinine 11.40 H*, Estim Creat Clear Calc 7.58, Est GFR (MDRD) Af Amer 6 L, Est GFR (MDRD) Non-Af 5 L, BUN/Creatinine Ratio 4.7 L, Glucose 135 H, Calcium 9.2, Troponin I High Sens 110 H 01/22/23 08:15: Troponin I High Sens 275 H* Clinical Impression(s) from Imaging Studies Chest X-Ray 01/22/23 06:22 IMPRESSION: No radiographic evidence of acute cardiopulmonary disease. Electronically Signed: Harsh Monge MD at 6:51 EDT , Chest CTA 01/22/23 07:18 IMPRESSION: No evidence of pulmonary embolism. Geographical areas of groundglass appearance seen in both lungs. This may represent a chronic pneumonitis. Electronically Signed: Kevin Bustos MD at 8:34 EDT , 2D echo in 02/20/2022. Interpretation Summary Normal LV size. Mild concentric left ventricular hypertrophy. Left ventricular systolic function is lower limits of normal. The estimated ejection fraction is 50 %. There is borderline global hypokinesis of the left ventricle. Charges/Coding Visit Charges Inpatient E&M: 45918 Subs Hosp L3
[2023-01-23 13:42] LABS: Bedside Glucose 101 mg/dL (74-106)
--- NOTE | 2023-01-23 15:58 | CL.I_ITS ---
Patient Name: LISA MASTERSON Study Date: 01/23/2023 Performing: Jayson Pickens MD Ht: 69 inches 175.26 cm : 1970 Wt: 304.46 lbs 138.1 kg Age: 52 Gender: male BSA: 2.47 PROCEDURE(S) PERFORMED DC02-(87887)LHC/COR IC12-(56333/C9600)ALISON W/WO PTCA, SINGLE CORONARY ARTERY [id number] INTRAVASCULAR LITHOTRIPSY CLINICAL PROFILE AND CO-MORBIDITIES Indications: ACS > 24 hrs Heart Failure: None Stress/Imaging Stress/Image Study Performed: No CAD Presentations: Non-STEMI. Symptom onset Date/Time: Time Not Available CONCLUSIONS 80% Prox OM2; 70% Mid LCX 60% Prox LAD 50% Prox RCA (non-dominant) 3.0x38 mm, optimized proximally using 3.75 mm balloon RECOMMENDATIONS ASA Indefinitley Plavix for at least 12 months DESCRIPTION OF PROCEDURE The patient arrived to the procedure lab. The risks and benefits of the procedure as well as a full description of our services here and lack of surgical backup were fully explained to the patient and/or their significant other prior to the catheterization. The Timeout was completed, verifying the correct patient and procedure. The patient's procedural site was prepped and draped in the usual fashion. Local anesthetic was given subcutaneously to right radial region with Lidocaine 2%. Using a modified Seldinger technique, arterial access was obtained via the right radial artery, a 6Fr sheath was inserted.. Left Coronary Artery selective angiography was performed in multiple views using a 5 Fr. 4.0 Powell catheter. Right Coronary Artery selective angiography was then performed in multiple views using a 5 Fr. 4.0 Powell catheterThe images were reviewed and options discussed. A decision was then made to proceed with an Intervention, IVUS or other adjunct procedure. XB 3.0 Guide catheter was inserted and engaged into the LCA. RUNTHROUGH Guide wire was advanced to the Circumflex. 3.0X38 RESOLUTE Drug Eluting stent was inserted. 2.50X15 EMERGE Balloon catheter was inserted. Balloon catheter was advanced across lesion in the circumflex, mid. PTCA balloon inflated at 10 atms for 15 secs. PTCA balloon inflated at 10 atms for 15 secs. 3.0X38 RESOLUTE Drug Eluting stent was inserted. Drug Eluting stent was advanced across the lesion in the circumflex, mid. 3.0X15 NC EUPHORA Balloon catheter was inserted post stent. Angiogram performed post balloon dilatation. RUNTHROUGH Guide wire was inserted as a sandra wire 2.5X8 EMERGE Balloon catheter was inserted. Balloon catheter was advanced across lesion in the circumflex, mid. PTCA balloon inflated at 10 atms for 15 secs. 3.0 X 15 NC EUPHORA Balloon catheter was inserted. 3.0X15 NC EUPHORA Balloon catheter was advanced across lesion in the circumflex, mid. 3.75X8 NC EMERGE Balloon catheter was inserted post stent. Angiogram performed post balloon dilatation. The arterial sheath was pulled and a TR Band was applied for hemostasis CORONARY ANGIOGRAPHY DOMINANCE: Left Dominant LEFT HEART ASSESSMENT Left Ventricular Ejection Fraction: Not assessed LEFT MAIN: Angiographically normal LEFT ANTERIOR DESCENDING ARTERY: LAD: Eccentric 60% Proximal lesion in LAD Tubular 40% Mid lesion in LAD CIRCUMFLEX ARTERY: CIRCUMFLEX: Calcified 70% Mid lesion in Circumflex Calcified 40% Proximal lesion in Circumflex OM 2: Calcified 80% Ostial lesion in 2nd OM RIGHT CORONARY ARTERY: RCA: Tubular 50% Proximal lesion in RCA INTERVENTION INFORMATION LESION SITE: Circumflex (Mid) Lesion Complexity: High/C, lesion length: 36 mm, culprit lesion: Yes, Lesion Complexity: High/C Pre Stenosis: 80 % Pre intervention ALONDRA flow: 3 PROCEDURE: Drug Eluting Stent with pre and post dilatation Post Stenosis: 0 % Post intervention ALONDRA flow: 3 Lesion Devices: Cordis 6 Fr XB3.0 100cm Guide Catheter Terumo .014 180cm Runthrough Extra Floppy straight Medtronic Resolute [place] RX ALISON 3.0x38 Agapito Sci EMERGE MR 2.50x15 BALLOON [employer] Shockwave IVL 2.5x12 Medtronic NC EUPHORA RX 3.0x15 BALLOON Terumo .014 180cm Runthrough Extra Floppy straight Agapito Sci EMERGE MR 2.50x08 BALLOON Agapito Sci NC EMERGE MR 3.75x08 BALLOON COMPLICATIONS No Complications PROCEDURE MEDICATIONS Fentanyl 50 mcg IV Versed 1 mg IV Oxygen: 2 L/min via nasal cannula Brilinta 180 mg PO @ 01/23/2023 14:44:39 Heparin given IA 01/23/2023 14:31:00 Heparin 40019 unit(s) IV 01/23/2023 14:40:12 Heparin 2000 unit(s) IV 01/23/2023 15:39:09 Nitro 50 mcg IC 01/23/2023 14:45:34 Nitro 100 mcg IC 01/23/2023 15:24:50 Verapamil 2.5mg, Ntg 200mcgs, 2000 units of Heparin given IA 01/23/2023 14:31:00 IV Bolus: .9 NaCl 250 ml total 01/23/2023 14:45:52 SUMMARY OF HEMODYNAMIC DATA Time AIR REST ECG 14:05:43 AO 100/54 (80) SA 14:33:18 15:40:09 Signed By Jayson Pickens MD On 01/23/2023 15:57:19 Jayson Pickens MD
[2023-01-23 16:21] LABS: ACT Activated Clotting Time 347 sec (74-137)
[2023-01-23 16:22] LABS: ACT Activated Clotting Time 251 sec (74-137)
[2023-01-23 17:50] LABS: Bedside Glucose 50 mg/dL (74-106)
[2023-01-23 17:50] LABS: Bedside Glucose 53 mg/dL (74-106)
[2023-01-23 19:56] LABS: Bedside Glucose 158 mg/dL (74-106)
[2023-01-23] MEDS: Clopidogrel Bisulfate 300 MG Tablet PO (20:52)
[2023-01-23] MEDS: Gabapentin 100 MG Capsule 200 MG PO (20:53)
[2023-01-23] MEDS: Atorvastatin Calcium 80 MG Tablet PO (20:53)
[2023-01-23] MEDS: Acetaminophen 325 MG Tablet 650 MG PO (20:53)
[2023-01-23] MEDS: traZODone 50 MG Tablet PO (20:53)
[2023-01-23 21:31] LABS: Bedside Glucose 152 mg/dL (74-106)
[2023-01-24] VITALS (18 sets, daily range): BP systolic 96–299; BP diastolic 63–85; PULSE 76–84; RESP 13–18; TEMP 35.9–36.6; O2SAT 96–100; BMI 46.1; BMI 45.3
[2023-01-24 04:33] LABS: Hematocrit 29.7 % (40-54); Hemoglobin 9.5 g/dL (13.0-16.5); Mean Corpuscular Hgb 28.6 pg (27.0-32.0); Mean Corpuscular Volume 89.5 fL (80-94); Mean Platelet Vol. 9.3 fl (6.2-12.0); Platelet Count 271 K/mm3 (150-450); RBC Distribution Width CV 15.1 % (11.6-14.6); RBC Distribution Width SD 49.1 fl (35.1-43.9); Red Blood Count 3.32 M/mm3 (4.6-6.2)
[2023-01-24 04:43] LABS: Magnesium 2.6 mg/dL (1.6-2.6)
[2023-01-24 05:00] LABS: ALB/GLOB Ratio 0.9 RATIO (0.9-2.4); AST(SGOT) 13 U/L (15-37); Alanine Aminotransfer ALT/SGPT 19 U/L (16-61); Albumin, Serum 3.2 g/dL (3.2-5.0); Alkaline Phosphatase 64 U/L (45-117); Anion Gap 9 (5-15); BUN 61 mg/dL (7-18); BUN/Creat Ratio 5.1 RATIO (10-20); Chloride 99 mmol/L (98-107); EST Glomerular Filtration Rate 5 mL/min (>60); Est Glom Filt Rate - Afr Amer 6 mL/min (>60); Globulin 3.7 g/dL (2.2-4.2); Glucose 107 mg/dL (74-106); Potassium 5.8 mmol/L (3.5-5.1); Protein, Total 6.9 g/dL (6.4-8.2); Sodium Level 135 mmol/L (136-145)
[2023-01-24] MEDS: Pantoprazole Sodium 20 MG Tablet PO (06:27)
[2023-01-24 07:52] LABS: Bedside Glucose 88 mg/dL (74-106)
[2023-01-24] MEDS: 0.9% Normal Saline 1,000 ML IV.SOLN. 1000 ML OPERA.SITE (08:03)
[2023-01-24] MEDS: PureFlow B 2K Dialysis Soln 1 BAG 6 BAG PF (08:03)
--- NOTE | 2023-01-24 08:36 | CRPHASE1 ---
Patient Communication Patient Information PHII Cardiac Rehab Discussed with Patient:: Yes Guide to Cardiac Rehab Given to Patient:: Yes Cardiac Rehab Facility Choice List Given to Patient:: Yes Communication to Cardiac Rehab Choice Program [facility] CR PHII:: Communication Given to CR Rehab Director:: Jayson Pickens Phase II Cardiac Rehab:: Yes Sessions:: 36 sessions - 3 days/wk, 12 weeks Cardiac Rehabilitation Info Program Information Cardiac Rehabilitation Program Information: Cardiac Rehab The cardiac rehab team at [facility] consists of highly skilled exercise physiologists, nurses, respiratory therapists and physicians working together with you. Our purpose is to help you have a full recovery and achieve the goals you set for yourself. Over the years many of our patients have returned to activities they assumed they would never do again! We can help restore your confidence and motivation to make lifestyle changes that can have a significant impact on your health and quality of life! We can help answer questions and concerns you may have about exercise, lifestyle, medications, diet, stress and anxiety which are common following a hospitalization. WE monitor ECG and vital signs during exercise and discuss your progress with you and report to your physician(s). Cardiac Rehab is proven to help reduce readmissions, improve functional capacity and lower recurrence of problems with your heart. Our Cardiac Rehab program is Certified by the [place] [employer]monary [employer] (AACVPR) and Accredited by the [place] [employer] through our [facility]. You can contact us at . We invite you to call us with your questions or to get started in our program. If you have other questions or concerns be sure to ask your physician/provider during your follow-up visit. WE look forward to seeing you!
--- NOTE | 2023-01-24 08:37 | CRPH1.INSTRU ---
General Education Discussed with Patient CAD and cardiac anatomy and function:: Patient communicates acknowledgment Explanation of diagnoses and procedures:: Patient communicates acknowledgment Sign/Symptoms of [place]:: Patient communicates acknowledgment Antiplatelet therapy: Patient communicates acknowledgment Proper use of NTG-SL: Patient communicates acknowledgment Emergency procedures and activation of EMS: Patient communicates acknowledgment Compliance of all prescribed medications: Patient communicates acknowledgment Smoking Risk Factors Patient Nicotine/Smoking Risk Factors Are:: Non-smoker Dyslipidemia Risk Factors Patient Dyslipidemia Risk Factors Are:: Total Cholesterol, Triglycerides, HDL and LDL Recommendations Recommendations Include:: Lipid profile provided, Reviewed NCEP/ATP guidelines and Therapeutic Lifestyle Change dietary guidelines Response Code Dyslipidemia Response Code:: Patient communicates acknowledgment Overweight/Obesity Risk Factors Patient Overweight/Obesity Risk Factors Are:: Obesity - > or = 30 Recommendations Recommendations Include:: Weight loss of 5-10%, Reduced calorie diet and Exercise 5-7 times/week Response Code Overweight/Obesity:: Patient communicates acknowledgment Hypertension Recommendations Recommendations Include:: Maintain BP <130/85, BP <130/80 if diabetic, DASH dietary guidelines, Decrease/maintain normal body weight and Moderation of ETOH Response Code Hypertension:: Patient communicates acknowledgment Diabetes Risk Factors Patient Diabetes Risk Factors Are:: Elevated blood sugars Recommendations Recommendations Include:: Maintain fasting blood sugars 70-110 md/dL, Maintain HgbA1c of 6% or less, Monitor blood sugar as prescribed, Diabetic dietary guidelines and Decrease/maintain body weight Response Code Diabetes:: Patient communicates acknowledgment Metabolic Syndrome Recommendations Recommendations Include:: Patient is diabetic Sedentary Risk Factors Patient Sedentary Risk Factors Are:: Lack of regular exercise Recommendations Recommendations Include:: Aerobic exercise 5-7 times/week for 20-30 minutes continuously, Benefits of regular exercise, Discussed home walking program and Monitored Outpatient Cardiac Rehab Response Code Sedentary Response Code:: Patient communicates acknowledgment Stress Recommendations Recommendations Include:: Identification of stressors, and assessment of coping skills and Stress management techniques Response Code Stress Response Code:: Patient communicates acknowledgment
[2023-01-24] MEDS: Aspirin E.C. 81 MG Tablet PO (11:30)
[2023-01-24] MEDS: SUCROFERRIC OXYHYDROXIDE 500 MG TAB.CHEW 1500 MG PO (11:32)
[2023-01-24] MEDS: Folic Acid/Vitamin B Comp W-C 1 Capsule 1 CAP PO (11:33)
[2023-01-24] MEDS: Clopidogrel Bisulfate 75 MG Tablet PO (11:33)
[2023-01-24] MEDS: Carvedilol 25 MG Tablet PO (11:33)
[2023-01-24] MEDS: amLODIPine 10 MG Tablet PO (11:33)
[2023-01-24] MEDS: Ezetimibe 10 MG Tablet PO (11:34)
[2023-01-24] MEDS: Losartan Potassium 50 MG Tablet PO (11:34)
[2023-01-24] MEDS: Sertraline 50 MG Tablet PO (11:34)
--- NOTE | 2023-01-24 11:34 | PCM.DC ---
Discharge Instructions Diet Discharge Diet: Low fat / Low cholesterol and Renal Diet Activity Discharge Activity: Return to Normal Activity Dressing / Incision Call your doctor if you observe: Fever of 101 or Higher, Shortness of breath, Dizziness, Fainting spells, Swelling in the ankles, Chest pain and Increased palpitations (irregular heartbeat) Follow Up Care Test Results: Test results from this visit will be discussed in further detail at your follow-up appointment, if applicable. Discharge Plan Admission Admit Date/Time: 01/22/23 09:05 Attending Provider: Tk Campbell Primary Care Provider: Norris Mcqueen Consulting Providers: Jayson Pickens; Jade Lamar; Leroy Clemons Instructions Patient Instructions: ED Understanding Supraventricular Tachycardia (SVT), ED Chest Pain, Uncertain Cause Discharge Orders/Prescriptions Prescriptions: New clopidogrel 75 mg Tablet 75 mg PO DAILY 30 Days Qty: 30 0RF Continued (DME) blood-glucose meter [FreeStyle [place] Lite] Kit See Rx Instructions .ROUTE .MEDSUPPLY Qty: 1 0RF Rx Instructions: As directed (DME) pen needle, diabetic [BD Ultra-Fine [place] Pen Needle] 32 gauge x 5/32 needle See Rx Instructions .ROUTE .MEDSUPPLY Qty: 400 1RF Rx Instructions: 4 times daily (DME) lancets [FreeStyle Lancets] 28 gauge misc See Rx Instructions .ROUTE .MEDSUPPLY Qty: 100 5RF Rx Instructions: As directed losartan 50 mg tablet 50 mg PO DAILY atorvastatin 80 mg tablet 80 mg PO QHS ezetimibe 10 mg tablet 10 mg PO DAILY gabapentin 100 mg capsule 200 mg PO QHS albuterol sulfate 90 mcg/actuation HFA aerosol inhaler 2 puff inhalation Q6H PRN (Reason: Shortness Of Breath Or Wheezing) Levemir FlexTouch U100 Insulin 100 unit/mL (3 mL) insulin pen 40 unit subcut QHS carvedilol 25 mg tablet 25 mg PO BID Patient Comments: HEART/BLOOD PRESSURE aspirin 81 MG tablet,chewable 81 mg PO DAILY Patient Comments: ANTIPLATELET omeprazole 20 MG capsule,delayed release(DR/EC) 20 mg PO BIDAC Velphoro 500 mg tablet,chewable 1,500 mg PO TID Patient Comments: CHEW & SWALLOW 3 TABLETS THREE TIMES A DAY WITH MEALS Leonela-Herbie 0.8 mg tablet 1 tab PO DAILY trazodone 50 mg tablet 50 mg PO QHS sertraline 50 mg tablet 50 mg PO DAILY nifedipine 60 mg tablet extended release 24hr 60 mg PO DAILY lanthanum 1,000 mg tablet,chewable 3,000 mg PO TIDCM amlodipine 10 mg tablet 10 mg PO DAILY quinine-vitamin E Capsule 1 cap PO DAILY insulin aspart U-100 [Novolog FlexPen U-100 Insulin] 100 unit/mL (3 mL) insulin pen 15 unit SC .COMPLEX Rx Instructions: 15 units subcutaneously TID CM AND 8U WITH SNACK; Referrals / Follow Up: Александр Nevarez MD [Med Staff - Active Staff] - Within 1 Month Norris Mcqueen MD [Primary Care Provider] - Within 1 Week Disposition Disposition (needs filled in before D/C Order can be placed): Home, Self Care
[2023-01-24] MEDS: LANTHANUM CARBONATE 1,000 MG TAB.CHEW 3000 MG PO (11:37)
--- NOTE | 2023-01-24 12:14 | PCM.PN.CARD ---
Subjective Subjective Denies any complaints. No chest pain. No shortness of breath. Objective Data Vital Signs: Vital Signs Temp Pulse Resp BP Pulse Ox O2 Del Method O2 Flow Rate 97.7 F L 83 15 114/76 98 Room Air 2 01/24/23 11:18 01/24/23 11:18 01/24/23 11:18 01/24/23 11:18 01/24/23 11:18 01/24/23 11:18 01/24/23 10:39 Oxygen Flow Rate (L/min) 2 Oxygen Delivery Method Room Air Weight: 305 lb 12.498 oz Body Mass Index (BMI) 45.3 Intake & Output: Intake and Output for Last 24 Hours 01/22/23 01/23/23 01/24/23 23:59 23:59 23:59 Intake Total 392.53 / 592.53 2427.47 / 2427.47 240 / 240 Output Total 1260 / 1260 2600 / 2600 Balance 392.53 / 592.53 1167.47 / 1167.47 -2360 / -2360 Lab / Micro Data 01/24/23 04:25 01/24/23 04:25 Labs: Laboratory Results - last 24 hr 01/23/23 12:26: POC Glucose 64 L 01/23/23 13:24: POC Glucose 101 01/23/23 14:46: Activated Clotting Time 347 H 01/23/23 15:34: Activated Clotting Time 251 H 01/23/23 16:58: POC Glucose 50 L 01/23/23 17:31: POC Glucose 53 L 01/23/23 19:31: POC Glucose 158 H 01/23/23 20:57: POC Glucose 152 H 01/24/23 04:25: WBC 8.0, RBC 3.32 L, Hgb 9.5 L, Hct 29.7 L, MCV 89.5, MCH 28.6, MCHC 32.0, RDW Std Deviation 49.1 H, RDW Coeff of Kyle 15.1 H, Plt Count 271, MPV 9.3, Sodium 135 L, Potassium 5.8 H, Chloride 99, Carbon Dioxide 27.0, Anion Gap 9, BUN 61 H, Creatinine 12.00 H*, Estim Creat Clear Calc 7.20, Est GFR (MDRD) Af Amer 6 L, Est GFR (MDRD) Non-Af 5 L, BUN/Creatinine Ratio 5.1 L, Glucose 107 H, Calcium 9.0, Magnesium 2.6, Total Bilirubin 0.20, AST 13 L, ALT 19, Alkaline Phosphatase 64, Total Protein 6.9, Albumin 3.2, Globulin 3.7, Albumin/Globulin Ratio 0.9 01/24/23 07:31: POC Glucose 88 Rhythm Strip Rhythm Strip: Sinus Rhythm Rate: 98 Ectopy: PVC(s) Cardiology Labs/Tests 01/24/23 04:25: WBC 8.0, RBC 3.32 L, Hgb 9.5 L, Hct 29.7 L, MCV 89.5, MCH 28.6, MCHC 32.0, Plt Count 271, MPV 9.3, Sodium 135 L, Potassium 5.8 H, Chloride 99, Carbon Dioxide 27.0, Anion Gap 9, BUN 61 H, Creatinine 12.00 H*, Est GFR (MDRD) Af Amer 6 L, Est GFR (MDRD) Non-Af 5 L, BUN/Creatinine Ratio 5.1 L, Glucose 107 H, Calcium 9.0, Magnesium 2.6, Total Bilirubin 0.20 Rhythm: EKG: ECHO: Stress Test: Cardiac Cath: PCI: CT Surgery: Holter monitor: EPS: PPM: CXR: Chest CT Scan: Physical Exam Const Constitutional Narrative: Comfortable. No apparent distress. Obese. Heart sounds 1 and 2 noted. Chest examination shows decreased breath sounds both bases. Abdomen obese. Alert oriented x3. No ankle edema noted. Assessment & Plan Assessment/Plan (1) NSTEMI, initial episode of care: PLAN: Status post percutaneous intervention with drug-eluting stent to the obtuse marginal branch/mid left circumflex. Continue aspirin lifelong. Clopidogrel for at least 1 year. Risk factor modification. (2) Non-ischemic cardiomyopathy: PLAN: Ejection fraction 35%. Continue beta-blockers. Angiotensin receptor stefani. (3) Essential (primary) hypertension: PLAN: Beta-blockers, losartan, amlodipine. It is also noted that the patient is on nifedipine besides amlodipine. We will stop nifedipine. (4) ESRD on dialysis: PLAN: As per nephrology. (5) Morbid obesity: PLAN: Lose weight. (6) Dyslipidemia: PLAN: On atorvastatin. PLAN: Plan May discharge home from a cardiac standpoint. Follow-up as outpatient in 2 to 4 weeks time.
[2023-01-24 12:15] LABS: Bedside Glucose 82 mg/dL (74-106)
--- NOTE | 2023-01-24 12:17 | CASEMGMT ---
Social Work SW met with pt and and assisted pt in completing HCPOA naming his Shyanne. Pt declined to complete living will at this time. Pt given information on living will. Copy placed on pt chart and original given to pt. DAVID Meyer
--- NOTE | 2023-01-24 12:45 | PCM.PN.REN ---
Subjective Subjective No new complaints today. Status post coronary angiogram, angioplasty. Breathing is better. Dialysis today. Objective Data Objective Data Vital Signs: Vital Signs Temp Pulse Resp BP Pulse Ox O2 Del Method O2 Flow Rate 97.7 F L 83 15 114/76 98 Room Air 2 01/24/23 11:18 01/24/23 11:18 01/24/23 11:18 01/24/23 11:18 01/24/23 11:18 01/24/23 11:18 01/24/23 10:39 Oxygen Flow Rate (L/min) 2 Oxygen Delivery Method Room Air Weight: 138.7 kg Body Mass Index (BMI) 45.3 Intake & Output: Intake and Output for Last 24 Hours 01/22/23 01/23/23 01/24/23 23:59 23:59 23:59 Intake Total 392.53 / 592.53 2427.47 / 2427.47 240 / 240 Output Total 1260 / 1260 2600 / 2600 Balance 392.53 / 592.53 1167.47 / 1167.47 -2360 / -2360 Lab / Micro Data 01/24/23 04:25 01/24/23 04:25 Labs: Laboratory Results - last 24 hr 01/23/23 12:26: POC Glucose 64 L 01/23/23 13:24: POC Glucose 101 01/23/23 14:46: Activated Clotting Time 347 H 01/23/23 15:34: Activated Clotting Time 251 H 01/23/23 16:58: POC Glucose 50 L 01/23/23 17:31: POC Glucose 53 L 01/23/23 19:31: POC Glucose 158 H 01/23/23 20:57: POC Glucose 152 H 01/24/23 04:25: WBC 8.0, RBC 3.32 L, Hgb 9.5 L, Hct 29.7 L, MCV 89.5, MCH 28.6, MCHC 32.0, RDW Std Deviation 49.1 H, RDW Coeff of Kyle 15.1 H, Plt Count 271, MPV 9.3, Sodium 135 L, Potassium 5.8 H, Chloride 99, Carbon Dioxide 27.0, Anion Gap 9, BUN 61 H, Creatinine 12.00 H*, Estim Creat Clear Calc 7.20, Est GFR (MDRD) Af Amer 6 L, Est GFR (MDRD) Non-Af 5 L, BUN/Creatinine Ratio 5.1 L, Glucose 107 H, Calcium 9.0, Magnesium 2.6, Total Bilirubin 0.20, AST 13 L, ALT 19, Alkaline Phosphatase 64, Total Protein 6.9, Albumin 3.2, Globulin 3.7, Albumin/Globulin Ratio 0.9 01/24/23 07:31: POC Glucose 88 01/24/23 11:26: POC Glucose 82 Rhythm Strip Rhythm Strip: Sinus Rhythm Rate: 98 Ectopy: PVC(s) Physical Exam Narrative Alert awake oriented x 3 no obvious distress no pallor no icterus no JVD s1s2 no murmurs lungs clear abdomen soft no organomegaly no edema no cyanosis Assessment & Plan Assessment/Plan (1) ESRD on dialysis: PLAN: On hemodialysis. Sunday, Sunday, Sunday schedule. Seen on dialysis today. Hyperphosphatemia. Can continue home binders. Hypertension. Usually runs higher than normal blood pressures. Appears euvolemic. Blood pressure right now is acceptable. Hyperkalemia. Dialysis on 2K bath today. Total duration about 3 hours 45 minutes. Possible discharge home today
--- NOTE | 2023-01-24 13:42 | PCM.DC.SUM ---
Providers Date of Admission: 01/22/23 Primary Care Physician: Dr. Norris Mcqueen MD Consultations 01/22/23 10:30 Consult: Cardiology Urgent Consulting Provider: Jayson Pickens Reason for Consult: Chest Pain EMERGENT Consult: No MD Notified: Yes Date Notified: 01/22/23 Time Notified: 09:10 Method of Notification: Text 01/22/23 11:08 Consult: Nephrology Routine Consulting Provider: Jade Lamar Reason for Consult: ESRD on HD, NSTEMI, cath? EMERGENT Consult: No MD Notified: Yes Date Notified: 01/22/23 Time Notified: 11:08 Method of Notification: Verbal Reason For Visit: NSTEMI/ACS Diagnosis Discharge Diagnosis (1) ESRD on dialysis: Status: Acute Code(s): N18.6 - End stage renal disease; Z99.2 - Dependence on renal dialysis Medications at Discharge Home Medications aspirin 81 mg chewable tablet 81 mg PO DAILY HEART 08/10/17 omeprazole 20 mg capsule,delayed release 20 mg PO BIDAC gerd 08/08/18 blood-glucose meter (FreeStyle Harmony Lite kit) #1 ea 12/22/19 lancets 28 gauge (FreeStyle Lancets) #100 ea 12/22/19 pen needle, diabetic 32 gauge x 5/32 (BD Ultra-Fine [place] Pen Needle) #400 ea 12/22/19 albuterol sulfate 90 mcg/actuation aerosol inhaler 2 puff inhalation Q6H PRN Shortness Of Breath Or Wheezing 07/26/21 atorvastatin 80 mg tablet 80 mg PO QHS 07/26/21 carvedilol 25 mg tablet 25 mg PO BID BP 07/26/21 ezetimibe 10 mg tablet 10 mg PO DAILY 07/26/21 gabapentin 100 mg capsule 200 mg PO QHS 07/26/21 insulin detemir U-100 100 unit/mL (3 mL) subcutaneous pen (Levemir FlexTouch U-100 Insulin) 40 unit subcut QHS 07/26/21 losartan 50 mg tablet 50 mg PO DAILY 07/26/21 sucroferric oxyhydroxide 500 mg chewable tablet (Velphoro) 1,500 mg PO TID 02/20/22 amlodipine 10 mg tablet 10 mg PO DAILY 01/22/23 insulin aspart U-100 100 unit/mL (3 mL) subcutaneous pen (Novolog FlexPen U-100 Insulin aspart) 15 unit subcut .COMPLEX 01/22/23 lanthanum 1,000 mg chewable tablet 3,000 mg PO TIDCM 01/22/23 nifedipine 60 mg tablet,extended release 24 hr 60 mg PO DAILY 01/22/23 quinine-vitamin E capsule 1 cap PO DAILY 01/22/23 sertraline 50 mg tablet 50 mg PO DAILY 01/22/23 trazodone 50 mg tablet 50 mg PO QHS 01/22/23 vitamin B complex-vitamin C-folic acid 0.8 mg tablet (Leonela-Herbie) 1 tab PO DAILY 01/22/23 clopidogrel 75 mg tablet 75 mg PO DAILY 30 days #30 tabs 01/24/23 Hospital Course Operations None Procedures None Summary of Care Provided Minutes Spent on Discharge: 32 Hospital Course: Per HPI: LISA MASTERSON, is a 52 M came to the ER for chest pressure/chest discomfort that woke him up at 5:30 AM. He described that it was severe chest pressure and he could not breathe felt very heavy with radiation to left arm with tingling and numbness in fingers. He said he never had chest pressure or discomfort or anginal pain in the past similar to this one. Patient has history of hypertension and diabetes and morbid obesity but denies family history of cardiac disease in first-degree family relative. All family members are morbidly obese. Her grandmother of brain aneurysm. In ED his blood pressure was high 202/126, MAP 151. Tachycardic 143/min but no tachypnea or hypoxia. First EKG in the ER individually reviewed shows sinus tachycardia at 142 beats Rumer, LAD LVH and nonspecific ST-T changes. Second EKG done is similar with normal sinus rhythm 83 bpm. QTc 491 ms. Patient first troponin was 110-second got high at 275 therefore admitted as ACS/non-STEMI. Patient is also on hemodialysis. Hospital Course: 1. Non-STEMI/ACS and CAD status post stent/chronic systolic and diastolic CHF/HTN/HLD?52-year-old male presented to the hospital with chest pressure and discomfort. He had a cardiac cath with stent placement in the circumflex. He had complete resolution of his chest discomfort. He was discharged on his home medications with the addition of Plavix to his aspirin. He did have a run of dialysis on the day of discharge. I discussed with him and his the plan for discharge today they expressed understanding of the risk benefits of going home and would like to go home today. I recommend that he follow-up with his PCP in 3 to 5 days and with cardiology within the next month. 2. End-stage renal disease on dialysis, COPD, type 2 diabetes all chronic medical conditions which complicate his care. His home medications were continued where appropriate Physical Exam Narrative General: Alert, Oriented x3, Cooperative, No apparent distress HEENT: Atraumatic, PERRLA, EOMI, Normocephalic Oral: Moist Mucosa Neck: Supple, No JVD Lungs: Clear to auscultation, Normal air movement, No rhonchi, No wheeze, No rales Cardiovascular: Regular rate, Regular Rhythm, Normal S1, Normal S2, No murmurs Abdomen: Soft, Non Tender, Non-Distended, No Hepato-splenomegaly Extremities: Edema, Capillary Refill Less than 3 Seconds Skin: No rashes, No breakdown Musculoskeletal: No Tenderness to Palpation of Joints or Extremities Neurological: Cranial nerves II-XII grossly intact, Motor Exam 5/5 strength throughout, Sensory exam intact to light touch and pain Psych/Mental Status: Normal Affect, Appropriate Weight / BMI Weight Weight: 305 lb 12.498 oz Body Mass Index (BMI) 45.3 ABG / Lab / Microbiology Data 01/24/23 04:25 01/24/23 04:25 Laboratory: Laboratory Results - last 24 hr 01/23/23 13:24: POC Glucose 101 01/23/23 14:46: Activated Clotting Time 347 H 01/23/23 15:34: Activated Clotting Time 251 H 01/23/23 16:58: POC Glucose 50 L 01/23/23 17:31: POC Glucose 53 L 01/23/23 19:31: POC Glucose 158 H 01/23/23 20:57: POC Glucose 152 H 01/24/23 04:25: WBC 8.0, RBC 3.32 L, Hgb 9.5 L, Hct 29.7 L, MCV 89.5, MCH 28.6, MCHC 32.0, RDW Std Deviation 49.1 H, RDW Coeff of Kyle 15.1 H, Plt Count 271, MPV 9.3, Sodium 135 L, Potassium 5.8 H, Chloride 99, Carbon Dioxide 27.0, Anion Gap 9, BUN 61 H, Creatinine 12.00 H*, Estim Creat Clear Calc 7.20, Est GFR (MDRD) Af Amer 6 L, Est GFR (MDRD) Non-Af 5 L, BUN/Creatinine Ratio 5.1 L, Glucose 107 H, Calcium 9.0, Magnesium 2.6, Total Bilirubin 0.20, AST 13 L, ALT 19, Alkaline Phosphatase 64, Total Protein 6.9, Albumin 3.2, Globulin 3.7, Albumin/Globulin Ratio 0.9 01/24/23 07:31: POC Glucose 88 01/24/23 11:26: POC Glucose 82 D/C Instructions Discharge Diet: Low fat / Low cholesterol and Renal Diet Call your doctor if you observe: Fever of 101 or Higher, Shortness of breath, Dizziness, Fainting spells, Swelling in the ankles, Chest pain and Increased palpitations (irregular heartbeat) Meaningful Use Info Meaningful Use Diagnoses (Choose all that apply): None applicable Discharge Plan Admission Admit Date/Time: 01/22/23 09:05 Attending Provider: Tk Campbell Primary Care Provider: Norris Mcqueen Consulting Providers: Jayson Pickens; Jade Lamar; Leroy Clemons Instructions Patient Instructions: ED Understanding Supraventricular Tachycardia (SVT), ED Chest Pain, Uncertain Cause Discharge Orders/Prescriptions Prescriptions: New clopidogrel 75 mg Tablet 75 mg PO DAILY 30 Days Qty: 30 0RF Continued (DME) blood-glucose meter [FreeStyle Harmony Lite] Kit See Rx Instructions .ROUTE .MEDSUPPLY Qty: 1 0RF Rx Instructions: As directed (DME) pen needle, diabetic [BD Ultra-Fine [place] Pen Needle] 32 gauge x 5/32 needle See Rx Instructions .ROUTE .MEDSUPPLY Qty: 400 1RF Rx Instructions: 4 times daily (DME) lancets [FreeStyle Lancets] 28 gauge misc See Rx Instructions .ROUTE .MEDSUPPLY Qty: 100 5RF Rx Instructions: As directed losartan 50 mg tablet 50 mg PO DAILY atorvastatin 80 mg tablet 80 mg PO QHS ezetimibe 10 mg tablet 10 mg PO DAILY gabapentin 100 mg capsule 200 mg PO QHS albuterol sulfate 90 mcg/actuation HFA aerosol inhaler 2 puff inhalation Q6H PRN (Reason: Shortness Of Breath Or Wheezing) Levemir FlexTouch U100 Insulin 100 unit/mL (3 mL) insulin pen 40 unit subcut QHS carvedilol 25 mg tablet 25 mg PO BID Patient Comments: HEART/BLOOD PRESSURE aspirin 81 MG tablet,chewable 81 mg PO DAILY Patient Comments: ANTIPLATELET omeprazole 20 MG capsule,delayed release(DR/EC) 20 mg PO BIDAC Velphoro 500 mg tablet,chewable 1,500 mg PO TID Patient Comments: CHEW & SWALLOW 3 TABLETS THREE TIMES A DAY WITH MEALS Leonela-Herbie 0.8 mg tablet 1 tab PO DAILY trazodone 50 mg tablet 50 mg PO QHS sertraline 50 mg tablet 50 mg PO DAILY nifedipine 60 mg tablet extended release 24hr 60 mg PO DAILY lanthanum 1,000 mg tablet,chewable 3,000 mg PO TIDCM amlodipine 10 mg tablet 10 mg PO DAILY quinine-vitamin E Capsule 1 cap PO DAILY insulin aspart U-100 [Novolog FlexPen U-100 Insulin] 100 unit/mL (3 mL) insulin pen 15 unit SC .COMPLEX Rx Instructions: 15 units subcutaneously TID CM AND 8U WITH SNACK; Referrals / Follow Up: Александр Nevarez MD [Med Staff - Active Staff] - Within 1 Month Norris Mcqueen MD [Primary Care Provider] - Within 1 Week Disposition Disposition (needs filled in before D/C Order can be placed): Home, Self Care Charges/Coding Visit Charges Inpatient E&M: 93693 Disch Hosp >30min
== END 2023-01-24 12:50 | disposition home or self-care (01) | DRG 174 ==
LOC: ED 09:11 → ICU 10:04
PROVIDERS: Hospitalist; Internal Medicine Cardiovascular Disease; Admitting Provider Internal Medicine; Emergency Provider Emergency Medicine; PCP Family Medicine; Visit Provider Family Medicine
DX: I21.4 Non-ST elevation (NSTEMI) myocardial infarction (principal); E83.39 Other disorders of phosphorus metabolism; I13.2 Hypertensive heart and chronic kidney disease with heart failure and with stage 5 chronic kidney disease, or end stage renal disease; E11.22 Type 2 diabetes mellitus with diabetic chronic kidney disease; N18.6 End stage renal disease; Z68.42 Body mass index [BMI] 45.0-49.9, adult; J44.9 Chronic obstructive pulmonary disease, unspecified; E11.42 Type 2 diabetes mellitus with diabetic polyneuropathy; Z99.2 Dependence on renal dialysis; I50.42 Chronic combined systolic (congestive) and diastolic (congestive) heart failure; Z79.4 Long term (current) use of insulin; E66.01 Morbid (severe) obesity due to excess calories; I07.1 Rheumatic tricuspid insufficiency; J98.4 Other disorders of lung; E78.5 Hyperlipidemia, unspecified; E87.5 Hyperkalemia; E87.6 Hypokalemia; I25.10 Atherosclerotic heart disease of native coronary artery without angina pectoris; Z79.82 Long term (current) use of aspirin; Z51.5 Encounter for palliative care; Z66 Do not resuscitate
CPT/HCPCS: 71045; 71275; 80048; 80053; 80061; 80076; 82962; 83735; 84100; 84443; 84484; 85025; 85027; 85347; 85610; 85730; 90937; 92928; 93005; 93306; 93454; 94668; 99152; 99153; 99284; C1761; J7030; J7040; Q9957; Q9967; A4216; C1725; C1769; C1874; C1887; C1894; C8929; C9600; G0257; J2405

== ENCOUNTER → 2023-02-01 | Outpatient (CLI) | payer MEDICAID, SELFPAY ==
--- NOTE | 2023-02-01 10:06 | ADUUE_ITS ---
Reason For Study: Decreased pulse right radial artery, s/p cath 01/23/23 RIGHT Radial artery, mid, 0.19 x 0.19 cm. Radial artery, mid, 73.7 cm/sec. Radial artery, distal, 0.16 x 0.17 cm. Radial artery, distal, 62 cm/sec. Ulnar artery, distal, 0.14 x 0.15 cm. Ulnar artery, distal, 44.3 cm/sec. Radial, Ulnar and Cephalic veins are compressible. No Pseudoaneurysm or acute occlusion noted. Preliminary report given to Fabiola MORGAN. /US Art Duplex Unilat UP Extrem Interpretation Summary Patent right radial, ulnar, brachial arteries with no pseudoaneurysm or fistula identified Ordering Physician: Jayson Pickens Referring Physician: Norris Mcqueen Performed By: Felecia Reynolds RVT
== END | disposition home or self-care (01) ==
LOC: CVS 10:05
PROVIDERS: PCP Family Medicine; Referring Provider Internal Medicine Cardiovascular Disease; Visit Provider Internal Medicine Cardiovascular Disease
DX: R09.89 Other specified symptoms and signs involving the circulatory and respiratory systems (principal); Z95.5 Presence of coronary angioplasty implant and graft
CPT/HCPCS: 93931

== ENCOUNTER → 2023-02-22 | Outpatient (CLI) | payer MEDICAID, SELFPAY | END | disposition home or self-care (01) | LOC: SL 20:12 | PROVIDERS: PCP Family Medicine; Referring Provider Nurse Practitioner Gerontology; Visit Provider Nurse Practitioner Gerontology | DX: G47.10 Hypersomnia, unspecified (principal); Z99.89 Dependence on other enabling machines and devices; G47.33 Obstructive sleep apnea (adult) (pediatric) | CPT/HCPCS: 95811 ==

== ENCOUNTER 2023-03-31 01:01 | Inpatient (IN) | payer MEDICARE, MEDICAID, SELFPAY ==
[2023-03-31] VITALS (16 sets, daily range): BP systolic 100–183; BP diastolic 60–120; PULSE 90–116; RESP 16–28; TEMP 36.1–36.6; O2SAT 73–100; BMI 44.9; BMI 44.1
--- NOTE | 2023-03-31 01:51 | EKG12_ITS ---
Test Reason : DYSRHYTHMIA Blood Pressure : / mmHG Vent. Rate : 116 BPM Atrial Rate : 116 BPM P-R Int : 146 ms QRS Dur : 086 ms QT Int : 358 ms P-R-T Axes : 031 -30 042 degrees QTc Int : 497 ms Sinus tachycardia Possible Left atrial enlargement Left axis deviation Reconfirmed by GA WILLETT, RADHA ([id number]), photographic editor JEF MATIAS ([id number]) on 04/02/2023 10:49:26 AM Referred By: Eric Golden Confirmed By:RADHA KOROMA MD
[2023-03-31] MEDS: Ipratropium/Albuterol Sulfate 3 ML AMPUL.NEB INHALATION (02:11)
[2023-03-31 02:17] LABS: Absolute Lymphocyte Count 0.89 X10^3/uL (0.83-4.51); Basophil# 0.05 X10^3/uL; Basophil% 0.4 % (0-1); Eosinophils% 1.7 % (0-5); Hematocrit 32.5 % (40-54); Hemoglobin 10.5 g/dL (13.0-16.5); Lymphocyte # 0.89 X10^3/ul (0.83-4.51); Lymphocyte % 7.4 % (19-41); Mean Corp Hgb Conc 32.3 g/dL (32-36); Mean Corpuscular Hgb 28.9 pg (27.0-32.0); Mean Corpuscular Volume 89.5 fL (80-94); Mean Platelet Vol. 9.4 fl (6.2-12.0); Monocyte# 0.71 X10^3/uL; Monocyte% 5.9 % (0-10); NRBC Flagged by Analyzer 0 % (0-5); Neutrophil # 10.02 X10^3/uL (2.7-7.7); Neutrophil % 83.8 % (47-70); Platelet Count 286 K/mm3 (150-450); RBC Distribution Width CV 17.1 % (11.6-14.6); Red Blood Count 3.63 M/mm3 (4.6-6.2)
[2023-03-31 02:28] LABS: D-Dimer Quantitative (DVT/PE) 0.37 FEU/ug/m (0.27-0.49)
--- NOTE | 2023-03-31 02:30 | EDS_ITS ---
HPI History of Present Illness Chief Complaint: Shortness of Breath Informant: patient Associated Symptoms cough Chest Pain: Positive for None Narrative Narrative: Patient dyspneic for a week or more, worse tonight. He and check pulse ox at home, he was in the 60s, so came to the emergency department. 73% on room air here and placed on oxygen nasal cannula, doing better there and with less dyspnea. Denies any chest discomfort. States he has been coughing for weeks, he has had some abnormal chest x-rays, he went in for a repeat 2 days ago, had him tested for COVID as well and he tested positive. No prior COVID vaccinations. This is his third time having had COVID, however. He is due for dialysis later this morning, he sees nephrology Dr. Zacarias. Had a heart attack about [address] Nevarez with cardiology. [facility] Medical History Anemia of chronic renal failure, stage 4 (severe) Arteriosclerotic cardiovascular disease Cardiology follow-up encounter Chronic kidney disease with end stage renal failure on dialysis COPD (chronic obstructive pulmonary disease) Degenerative disc disease, cervical Demand ischemia Diabetes Diabetes mellitus, type II, insulin dependent Diabetic polyneuropathy (04/2017) Elevated troponin Essential (primary) hypertension Fistula GERD (gastroesophageal reflux disease) High cholesterol History of CHF (congestive heart failure) History of echocardiogram History of stress test Hypertension Hypotension Insulin dependent diabetes mellitus Leg cramps Morbid obesity Myocardial infarct Non-ischemic cardiomyopathy Non-smoker Problem with dialysis access Sleep apnea Syncope (07/2018) Systolic and diastolic CHF, acute Wears glasses Wears partial dentures Home Medications aspirin 81 mg chewable tablet 81 mg PO DAILY HEART 08/10/17 [History Last Taken 01/22/23] omeprazole 20 mg capsule,delayed release 20 mg PO BIDAC gerd 08/08/18 [History Last Taken 01/22/23] blood-glucose meter (FreeStyle [place] Lite kit) #1 ea 12/22/19 [Rx Last Taken Unknown] lancets 28 gauge (FreeStyle Lancets) #100 ea 12/22/19 [Rx Last Taken Unknown] pen needle, diabetic 32 gauge x /32 (BD Ultra-Fine [place] Pen Needle) #400 ea 12/22/19 [Rx Last Taken Unknown] albuterol sulfate 90 mcg/actuation aerosol inhaler 2 puff inhalation Q6H PRN Shortness Of Breath Or Wheezing 07/26/21 [History Last Taken 01/21/23] atorvastatin 80 mg tablet 80 mg PO QHS 07/26/21 [History Last Taken 01/21/23] carvedilol 25 mg tablet 25 mg PO BID BP 07/26/21 [History Last Taken 01/21/23] ezetimibe 10 mg tablet 10 mg PO DAILY 07/26/21 [History Last Taken 01/21/23] gabapentin 100 mg capsule 200 mg PO QHS 07/26/21 [History Last Taken 01/21/23] insulin detemir U-100 100 unit/mL (3 mL) subcutaneous pen (Levemir FlexTouch U- 100 Insulin) 40 unit subcut QHS 07/26/21 [History Last Taken 01/21/23] losartan 50 mg tablet 50 mg PO DAILY 07/26/21 [History Last Taken 01/21/23] sucroferric oxyhydroxide 500 mg chewable tablet (Velphoro) 1,500 mg PO TID 02/20/22 [History Last Taken 01/21/23] insulin aspart U-100 100 unit/mL (3 mL) subcutaneous pen (Novolog FlexPen U-100 Insulin aspart) 15 unit subcut .COMPLEX 01/22/23 [History Last Taken 01/21/23] lanthanum 1,000 mg chewable tablet 3,000 mg PO TIDCM 01/22/23 [History Last Taken 01/21/23] nifedipine 60 mg tablet,extended release 24 hr 60 mg PO DAILY 01/22/23 [History Last Taken 01/21/23] quinine-vitamin E capsule 1 cap PO DAILY 01/22/23 [History Last Taken 01/21/23] sertraline 50 mg tablet 50 mg PO DAILY 01/22/23 [History Last Taken 01/21/23] trazodone 50 mg tablet 50 mg PO QHS 01/22/23 [History Last Taken 01/21/23] vitamin B complex-vitamin C-folic acid 0.8 mg tablet (Leonela-Herbie) 1 tab PO DAILY 01/22/23 [History Last Taken 01/21/23] clopidogrel 75 mg tablet 75 mg PO DAILY #90 tabs 02/13/23 [Rx Last Taken Unknown] Allergy/AdvReac Type Severity Reaction Status Date / Time liraglutide [From Victoza] Allergy Unknown unknown Verified 03/31/23 01:02 NSAIDS (Non-Steroidal AdvReac Severe Renal Verified 03/31/23 01:02 Anti-Inflamma failure BLANCA Inhibitors AdvReac Intermediate cough Verified 03/31/23 01:02 Family History Mother Hypertension Grandmother Aneurysm Other NSTEMI, initial episode of care Stented coronary artery Surgical History (Updated 03/31/23 @ 01:12 by Anusha Lopez) History of angioplasty of peripheral vessel (07/2021) History of coronary artery stent placement Hx of cardiac catheterization (~01/23/23) Presence of surgically created arteriovenous shunt for hemodialysis (07/2017) Stented coronary artery (01/23/23) Social History household members: spouse housing: house Smoking Status: Never smoker alcohol intake: never substance use type: does not use ROS ROS ED Constitutional Constitutional ED: Reports body ache(s), fatigue and malaise Eyes Eyes: Denies change in vision or diplopia ENT ENT ED: Denies rhinorrhea or sore throat Cardiovascular Cardiovascular: Reports leg edema; Denies chest pain or palpitations Respiratory/Chest Respiratory/Chest: Reports cough, dyspnea and dyspnea on exertion Gastrointestinal Gastrointestinal: Denies abdominal pain, nausea or vomiting Genitourinary Genitourinary ED: Denies dysuria or hematuria Musculoskeletal Musculoskeletal: Denies back pain or neck pain Integumentary Denies abscess or rash Neurologic Neurologic: Denies paresthesias or weakness Psychiatric Psychiatric: Denies anxiety or suicidal thoughts EXAM Physical Exam Const Vital Signs: 03/31/23 01:03 03/31/23 01:10 03/31/23 01:11 Temperature 97.0 F L 97.0 F L Temperature Source Temporal Temporal Pulse Rate 116 H 116 H Respiratory Rate 28 H 22 H Respiratory Effort Short of Breath Respiratory Pattern Blood Pressure 181/114 H 181/114 H Blood Pressure Mean 136 136 Pulse Ox 73 100 Oxygen Delivery Method Room Air Nasal Cannula Nasal Cannula Oxygen Flow Rate (L/min) 6 6 03/31/23 02:12 03/31/23 02:14 03/31/23 02:14 Temperature Temperature Source Pulse Rate 113 H 112 H Respiratory Rate 20 H 25 H Respiratory Effort Respiratory Pattern Tachypnea Blood Pressure 163/98 H Blood Pressure Mean 119 Pulse Ox 100 98 Oxygen Delivery Method Nasal Cannula Nasal Cannula Oxygen Flow Rate (L/min) 6 6 Positive well nourished, well developed and obese General Appearance ED: well developed and NAD Nutritional Appearance: obese HEENT Reports moist mucous membranes normocephalic and atraumatic Eyes PERRL and EOMs intact bilaterally Neck full ROM and supple Resp normal respiratory effort and clear to auscultation bilaterally Resp Narrative: Diminished throughout, worse at bases Cardio regular rate, regular rhythm and no murmurs Rate: tachycardic GI non-tender and non-distended Auscultation: normoactive bowel sounds Palpation: soft Back/Spine no CVA tenderness General Back: other FROM Extremity normal to inspection and no calf tenderness General Extremety ED: Yes edema; Negative for pulses abnormal or tenderness General Extremity: edema bilateral lower extremity Details: mild; Negative for pulses abnormal Neuro oriented x3, CN's II-XII intact bilaterally and no sensory deficits noted Sensorium / Orientation: awake and alert Motor Exam: strength 5/5 throughout Psych mental status grossly normal Skin no rashes or lesions noted and no wounds MDM MDM MDM Narrative Medical decision making narrative: Patient breathing better after nebulizer treatment and oxygen, his oxygen saturations are maintaining with a 6 L cannula. Chest x-ray shows multifocal pneumonitis, he does not sound wet like he is in acute congestive heart failure, although it is certainly in the realm of possibility, but I suspect this is probably infectious and related to COVID. He is doing relatively well breathing does not need to be admitted to the ICU. The EKG shows no acute injury or obvious signs of heart strain. Given his end-stage renal disease, a BNP was not obtained since it is not likely to be helpful. D-dimer however was obtained, in order to rule out PE and it was negative, ruling that out at this time. Troponin within normal limits, discussed with hospitalist for admission. Lab Data Attestation: I reviewed the patient's lab results. Labs: Laboratory Results - last 24 hr 03/31/23 02:05 WBC 12.0 H RBC 3.63 L Hgb 10.5 L Hct 32.5 L MCV 89.5 MCH 28.9 MCHC 32.3 RDW Std Deviation 55.0 H RDW Coeff of Kyle 17.1 H Plt Count 286 MPV 9.4 Immature Gran % (Auto) 0.800 Neut % (Auto) 83.8 H Lymph % (Auto) 7.4 L [place] % (Auto) 5.9 Eos % (Auto) 1.7 Baso % (Auto) 0.4 Absolute Neuts (auto) 10.0 H Absolute Lymphs (auto) 0.89 Nucleated RBC % 0 D-Dimer Quant (PE/DVT) 0.37 Sodium 136 Potassium 4.6 Chloride 98 Carbon Dioxide 31.0 Anion Gap 7 BUN 38 H Creatinine 10.50 H* Estim Creat Clear Calc 8.23 Est GFR (MDRD) Af Amer 7 L Est GFR (MDRD) Non-Af 6 L BUN/Creatinine Ratio 3.6 L Glucose 142 H Calcium 9.6 Troponin I High Sens 54 Radiography Chest X-Ray - ED: 1 View, Read by ED Physician, Right Infiltrate and Left Infiltrate Rhythm Strip Rhythm Strip: Sinus Tach Rate: 115 Ectopy: None EKG Initial EKG: Attestation: I personally reviewed and interpreted this EKG as follows: Interpretation: No Acute Injury Pattern and Sinus Tachycardia Management Discussion w/another healthcare provider: Hospitalist Discharge Plan Triage Chief Complaint: Shortness of Breath ED Provider: Wilfred Crawford Dx/Rx/DC Orders Clinical Impression: Pneumonia due to COVID-19 virus, Hypoxemia, ESRD on dialysis Prescriptions: No Action (DME) blood-glucose meter [FreeStyle [place] Lite] Kit See Rx Instructions .ROUTE .MEDSUPPLY Qty: 1 0RF Rx Instructions: As directed (DME) pen needle, diabetic [BD Ultra-Fine [place] Pen Needle] 32 gauge x 5/32 needle See Rx Instructions .ROUTE .MEDSUPPLY Qty: 400 1RF Rx Instructions: 4 times daily (DME) lancets [FreeStyle Lancets] 28 gauge misc See Rx Instructions .ROUTE .MEDSUPPLY Qty: 100 5RF Rx Instructions: As directed losartan 50 mg tablet 50 mg PO DAILY atorvastatin 80 mg tablet 80 mg PO QHS ezetimibe 10 mg tablet 10 mg PO DAILY gabapentin 100 mg capsule 200 mg PO QHS albuterol sulfate 90 mcg/actuation HFA aerosol inhaler 2 puff inhalation Q6H PRN (Reason: Shortness Of Breath Or Wheezing) Levemir FlexTouch U100 Insulin 100 unit/mL (3 mL) insulin pen 40 unit subcut QHS clopidogrel 75 mg tablet 75 mg PO DAILY Qty: 90 3RF carvedilol 25 mg tablet 25 mg PO BID Patient Comments: HEART/BLOOD PRESSURE aspirin 81 MG tablet,chewable 81 mg PO DAILY Patient Comments: ANTIPLATELET omeprazole 20 MG capsule,delayed release(DR/EC) 20 mg PO BIDAC Velphoro 500 mg tablet,chewable 1,500 mg PO TID Patient Comments: CHEW & SWALLOW 3 TABLETS THREE TIMES A DAY WITH MEALS Leonela-Herbie 0.8 mg tablet 1 tab PO DAILY trazodone 50 mg tablet 50 mg PO QHS sertraline 50 mg tablet 50 mg PO DAILY nifedipine 60 mg tablet extended release 24hr 60 mg PO DAILY lanthanum 1,000 mg tablet,chewable 3,000 mg PO TIDCM quinine-vitamin E Capsule 1 cap PO DAILY insulin aspart U-100 [Novolog FlexPen U-100 Insulin] 100 unit/mL (3 mL) insulin pen 15 unit SC .COMPLEX Rx Instructions: 15 units subcutaneously TID CM AND 8U WITH SNACK; Primary Care Provider: Norris Mcqueen Referrals: Norris Mcqueen MD [Primary Care Provider] -
[2023-03-31 02:36] LABS: Anion Gap 7 (5-15); BUN 38 mg/dL (7-18); BUN/Creat Ratio 3.6 RATIO (10-20); Calcium,Total 9.6 mg/dL (8.5-10.1); Chloride 98 mmol/L (98-107); EST Glomerular Filtration Rate 6 mL/min (>60); Est Glom Filt Rate - Afr Amer 7 mL/min (>60); Estimated Creatinine Clearance 8.23 ml/min; Glucose 142 mg/dL (74-106); Potassium 4.6 mmol/L (3.5-5.1); Sodium Level 136 mmol/L (136-145); Troponin-I HS 54 pg/mL (3.0-78.0)
--- NOTE | 2023-03-31 02:50 | RAD_ITS ---
EXAM: XR CHEST, 1 VIEW CLINICAL INDICATION: covid, sob TECHNIQUE: Frontal view of the chest. COMPARISON: 01/22/2023. FINDINGS: LUNGS AND PLEURAL SPACES: Extensive patchy areas of consolidation mid and lower lungs bilaterally consistent with pneumonia. No pneumothorax. No effusion. HEART: Unremarkable. Cardiac silhouette not enlarged. MEDIASTINUM: Central airways and mediastinal contour are unremarkable. BONES/JOINTS: Unremarkable. No acute fracture. SOFT TISSUES: Unremarkable. RAD/Chest 1 View (Portable) IMPRESSION: Extensive patchy areas of consolidation mid and lower lungs bilaterally consistent with pneumonia. Electronically Signed: Storm Hagen MD at 3:22 EST ,
--- NOTE | 2023-03-31 04:00 | HP.PCM.HOS_ITS ---
HPI - General General Date of Admission: 03/31/23 Date of Service: 03/31/23 Chief Complaint: Shortness of breath HPI Narrative LISA MASTERSON, is a 52 M who presents with shortness of breath. Patient states that he has been sick for weeks even before his heart attack in April. Over the past week, he has gotten more sick. Has not slept during this time, has sore throat, rhinitis, cough that is recent become productive. [place] very sick on the first and did not make his dialysis appointment. He presented to the emergency room and his oxygen was 73%. They checked a COVID-19 and was positive. Patient was placed on 6 L nasal cannula of oxygen and is currently breathing comfortably. Patient states that he has had COVID-19 before but never this severe. He is unvaccinated for COVID-19. [facility] Medical History Anemia of chronic renal failure, stage 4 (severe) Arteriosclerotic cardiovascular disease Cardiology follow-up encounter Chronic kidney disease with end stage renal failure on dialysis COPD (chronic obstructive pulmonary disease) Degenerative disc disease, cervical Demand ischemia Diabetes Diabetes mellitus, type II, insulin dependent Diabetic polyneuropathy (04/2017) Elevated troponin Essential (primary) hypertension Fistula GERD (gastroesophageal reflux disease) High cholesterol History of CHF (congestive heart failure) History of echocardiogram History of stress test Hypertension Hypotension Insulin dependent diabetes mellitus Leg cramps Morbid obesity Myocardial infarct Non-ischemic cardiomyopathy Non-smoker Problem with dialysis access Sleep apnea Syncope (07/2018) Systolic and diastolic CHF, acute Wears glasses Wears partial dentures Home Medications aspirin 81 mg chewable tablet 81 mg PO DAILY HEART 08/10/17 [History Last Taken 01/22/23] omeprazole 20 mg capsule,delayed release 20 mg PO BIDAC gerd 08/08/18 [History Last Taken 01/22/23] blood-glucose meter (FreeStyle [place] Lite kit) #1 ea 12/22/19 [Rx Last Taken Unknown] lancets 28 gauge (FreeStyle Lancets) #100 ea 12/22/19 [Rx Last Taken Unknown] pen needle, diabetic 32 gauge x 5/32 (BD Ultra-Fine China Pen Needle) #400 ea 12/22/19 [Rx Last Taken Unknown] albuterol sulfate 90 mcg/actuation aerosol inhaler 2 puff inhalation Q6H PRN Shortness Of Breath Or Wheezing 07/26/21 [History Last Taken 01/21/23] atorvastatin 80 mg tablet 80 mg PO QHS 07/26/21 [History Last Taken 01/21/23] carvedilol 25 mg tablet 25 mg PO BID BP 07/26/21 [History Last Taken 01/21/23] ezetimibe 10 mg tablet 10 mg PO DAILY 07/26/21 [History Last Taken 01/21/23] gabapentin 100 mg capsule 200 mg PO QHS 07/26/21 [History Last Taken 01/21/23] insulin detemir U-100 100 unit/mL (3 mL) subcutaneous pen (Levemir FlexTouch U- 100 Insulin) 40 unit subcut QHS 07/26/21 [History Last Taken 01/21/23] losartan 50 mg tablet 50 mg PO DAILY 07/26/21 [History Last Taken 01/21/23] sucroferric oxyhydroxide 500 mg chewable tablet (Velphoro) 1,500 mg PO TID 02/20/22 [History Last Taken 01/21/23] insulin aspart U-100 100 unit/mL (3 mL) subcutaneous pen (Novolog FlexPen U-100 Insulin aspart) 15 unit subcut .COMPLEX 01/22/23 [History Last Taken 01/21/23] lanthanum 1,000 mg chewable tablet 3,000 mg PO TIDCM 01/22/23 [History Last Taken 01/21/23] nifedipine 60 mg tablet,extended release 24 hr 60 mg PO DAILY 01/22/23 [History Last Taken 01/21/23] quinine-vitamin E capsule 1 cap PO DAILY 01/22/23 [History Last Taken 01/21/23] sertraline 50 mg tablet 50 mg PO DAILY 01/22/23 [History Last Taken 01/21/23] trazodone 50 mg tablet 50 mg PO QHS 01/22/23 [History Last Taken 01/21/23] vitamin B complex-vitamin C-folic acid 0.8 mg tablet (Leonela-Herbie) 1 tab PO DAILY 01/22/23 [History Last Taken 01/21/23] clopidogrel 75 mg tablet 75 mg PO DAILY #90 tabs 02/13/23 [Rx Last Taken Unknown] Allergy/AdvReac Type Severity Reaction Status Date / Time liraglutide [From Victoza] Allergy Unknown unknown Verified 03/31/23 01:02 NSAIDS (Non-Steroidal AdvReac Severe Renal Verified 03/31/23 01:02 Anti-Inflamma failure BLANCA Inhibitors AdvReac Intermediate cough Verified 03/31/23 01:02 Family History Mother Hypertension Grandmother Aneurysm Other NSTEMI, initial episode of care Stented coronary artery Surgical History History of angioplasty of peripheral vessel (07/2021) History of coronary artery stent placement Hx of cardiac catheterization (~01/23/23) Presence of surgically created arteriovenous shunt for hemodialysis (07/2017) Stented coronary artery (01/23/23) Social History household members: spouse housing: house Smoking Status: Never smoker alcohol intake: never substance use type: does not use ROS ROS Narrative All review of systems were negative except as mentioned above in the history of present illness and the other review of systems. Vital Signs Vital Signs Vital Signs: 03/31/23 01:03 03/31/23 01:10 03/31/23 01:11 Temperature 36.1 C L 36.1 C L Temperature Source Temporal Temporal Pulse Rate 116 H 116 H Respiratory Rate 28 H 22 H Respiratory Effort Short of Breath Respiratory Pattern Blood Pressure 181/114 H 181/114 H Blood Pressure Mean 136 136 Pulse Ox 73 100 Oxygen Delivery Method Room Air Nasal Cannula Nasal Cannula Oxygen Flow Rate (L/min) 6 6 03/31/23 02:12 03/31/23 02:14 03/31/23 02:14 Temperature Temperature Source Pulse Rate 113 H 112 H Respiratory Rate 20 H 25 H Respiratory Effort Respiratory Pattern Tachypnea Blood Pressure 163/98 H Blood Pressure Mean 119 Pulse Ox 100 98 Oxygen Delivery Method Nasal Cannula Nasal Cannula Oxygen Flow Rate (L/min) 6 6 03/31/23 03:55 03/31/23 03:55 Temperature Temperature Source Pulse Rate 101 H 103 H Respiratory Rate 21 H 21 H Respiratory Effort Respiratory Pattern Blood Pressure 183/120 H 183/120 H Blood Pressure Mean 141 141 Pulse Ox 100 99 Oxygen Delivery Method Nasal Cannula Oxygen Flow Rate (L/min) 6 Weight Weight: 137.8 kg Body Mass Index (BMI) 44.9 Physical Exam Const alert and no apparent distress Constitutional Narrative: On oxygen. No respiratory distress. No conversational dyspnea. HEENT normocephalic and head/scalp atraumatic Neck no lymphadenopathy Resp Resp Narrative: Bilateral faint crackles throughout. Cardio regular rate, regular rhythm, S1 normal heart sound and S2 normal heart sound GI normal to inspection, nondistended, normoactive bowel sounds, soft to palpation, non-tender and non-distended Extremity normal to inspection, full ROM and no clubbing, cyanosis or edema Neuro moves all extremities Sensorium / Orientation: awake and alert Psych affect normal Results Lab / Micro Data 03/31/23 02:05 03/31/23 02:05 Labs: Laboratory Results - last 24 hr 03/31/23 02:05: WBC 12.0 H, RBC 3.63 L, Hgb 10.5 L, Hct 32.5 L, MCV 89.5, MCH 28.9, MCHC 32.3, RDW Std Deviation 55.0 H, RDW Coeff of Kyle 17.1 H, Plt Count 286, MPV 9.4, Immature Gran % (Auto) 0.800, Neut % (Auto) 83.8 H, Lymph % (Auto) 7.4 L, [place] % (Auto) 5.9, Eos % (Auto) 1.7, Baso % (Auto) 0.4, Absolute Neuts (auto) 10.0 H, Absolute Lymphs (auto) 0.89, Nucleated RBC % 0, D-Dimer Quant (PE/DVT) 0.37, Sodium 136, Potassium 4.6, Chloride 98, Carbon Dioxide 31.0, Anion Gap 7, BUN 38 H, Creatinine 10.50 H*, Estim Creat Clear Calc 8.23, Est GFR (MDRD) Af Amer 7 L, Est GFR (MDRD) Non-Af 6 L, BUN/Creatinine Ratio 3.6 L, Glucose 142 H, Calcium 9.6, Troponin I High Sens 54 Rhythm Strip Rhythm Strip: Sinus Tach Rate: 115 Ectopy: None Imagaing Radiology Impression Chest X-Ray 03/31/23 02:50 IMPRESSION: Extensive patchy areas of consolidation mid and lower lungs bilaterally consistent with pneumonia. Electronically Signed: Storm Hagen MD at 3:22 EST , Assessment & Plan Assessment/Plan (1) Acute hypoxic respiratory failure: PLAN: Secondary to COVID-19. Cannot rule out underlying bacterial pneumonia. Chest x-ray shows diffuse bilateral infiltrates. He states that he is been sick for some time but more so over the past week. After that was the onset of the COVID-19. Patient states that he has had COVID-19 before. Is not in our system to substantiate that. He was checked for COVID-19 in our system back in January 2022 and it was negative at that time. Patient does endorse that he is unvaccinated for COVID-19. Wean oxygen as tolerated. Treat COVID-19 but also treat the patient for bacterial pneumonia. Will check a procalcitonin, urinary antigens for Streptococcus and Legionella and sputum culture. If the bacterial workup comes back negative then would recommend discontinuing antibiotics. Bronchodilators. (2) Pneumonia due to COVID-19 virus: PLAN: X-ray looks consistent with viral pneumonia though Bactrim on community ruled out at this time. Will treat the patient with dexamethasone. Holding off on remdesivir given his end-stage renal disease on dialysis. Explained the patient that if this is all due to COVID-19 I anticipate a slow recovery. PLAN: Plan Chronic conditions * CAD: Recent stent to the first marginal. Continue with aspirin, clopidogrel and statin. * Diabetes mellitus type 2: Insulin-dependent. Continue with long-acting, prandial insulin and I will add sliding scale insulin as well. Anticipate worsening glucose control with the initiation of dexamethasone. * End-stage renal disease: On dialysis chronically. Does have a fistula in his left upper extremity. Missed dialysis on Sunday because he felt too unwell. Will consult nephrology to reinitiate dialysis. Patient does not appear to be volume overloaded. VTE prophylaxis with subcu heparin. Charges/Coding Visit Charges Inpatient E&M: 81489 Init Hosp L3
[2023-03-31] MEDS: Pantoprazole Sodium 20 MG Tablet PO ×2 (07:10→16:05)
[2023-03-31] MEDS: dexAMETHasone 10 MG/ML Vial 6 MG IV (07:17)
[2023-03-31 07:46] LABS: Bedside Glucose 133 mg/dL (74-106)
[2023-03-31] MEDS: Aspirin 81 MG TAB.CHEW PO (08:56)
[2023-03-31] MEDS: Losartan Potassium 50 MG Tablet PO (08:56)
[2023-03-31] MEDS: Ezetimibe 10 MG Tablet PO (08:57)
[2023-03-31] MEDS: Carvedilol 25 MG Tablet PO ×2 (08:57→16:05)
[2023-03-31] MEDS: Sertraline 50 MG Tablet PO (08:57)
[2023-03-31] MEDS: NIFEdipine 60 MG Tablet PO (08:57)
[2023-03-31] MEDS: Azithromycin 500 MG in Dextrose 5%-Water (250mL Bag) 250 ML 250 MG IV (08:58)
[2023-03-31] MEDS: Clopidogrel Bisulfate 75 MG Tablet PO (08:58)
[2023-03-31] MEDS: Folic Acid/Vitamin B Comp W-C 1 Capsule 1 CAP PO (08:58)
[2023-03-31] MEDS: 0.9% Saline Lock 10 ML Syringe IV ×2 (09:06→20:51)
[2023-03-31] MEDS: Insulin Lispro 100 UNIT/ML INSULN.PEN 15 UNIT SC ×3 (09:06→16:06)
[2023-03-31 09:56] LABS: Procalcitonin 0.94 ng/mL (0.00-0.09)
[2023-03-31] MEDS: Ceftriaxone 1 GM/50 ML BAG IV (10:37)
[2023-03-31] MEDS: Heparin Injection (Vial) 5,000 UNIT/ML VIAL 5000 UNIT SC ×2 (10:39→20:55)
[2023-03-31 12:39] LABS: Bedside Glucose 123 mg/dL (74-106)
--- NOTE | 2023-03-31 12:51 | PN_ITS ---
Subjective Subjective Patient seen and examined. He was admitted with a complaint of shortness of breath and found to have covid 19 infection. Review of systems is otherwise negative. He is on 3L of oxygen. Objective Data Objective Data Vital Signs: Vital Signs Temp Pulse Resp BP Pulse Ox O2 Del Method O2 Flow Rate 97.5 F L 97 18 100/70 94 Nasal Cannula 3 03/31/23 12:18 03/31/23 12:18 03/31/23 12:18 03/31/23 12:18 03/31/23 12:18 03/31/23 12:18 03/31/23 12:18 Oxygen Flow Rate (L/min) 3 Oxygen Delivery Method Nasal Cannula Weight: 298 lb 11.622 oz Body Mass Index (BMI) 44.1 Intake & Output: Intake and Output for Last 24 Hours 03/29/23 03/30/23 03/31/23 23:59 23:59 23:59 Intake Total 555 / 555 Balance 555 / 555 Lab / Micro Data 03/31/23 02:05 03/31/23 02:05 Labs: Laboratory Results - last 24 hr 03/31/23 01:10: Procalcitonin 0.94 H 03/31/23 02:05: WBC 12.0 H, RBC 3.63 L, Hgb 10.5 L, Hct 32.5 L, MCV 89.5, MCH 28.9, MCHC 32.3, RDW Std Deviation 55.0 H, RDW Coeff of Kyle 17.1 H, Plt Count 286, MPV 9.4, Immature Gran % (Auto) 0.800, Neut % (Auto) 83.8 H, Lymph % (Auto) 7.4 L, [place] % (Auto) 5.9, Eos % (Auto) 1.7, Baso % (Auto) 0.4, Absolute Neuts (auto) 10.0 H, Absolute Lymphs (auto) 0.89, Nucleated RBC % 0, D-Dimer Quant (PE/DVT) 0.37, Sodium 136, Potassium 4.6, Chloride 98, Carbon Dioxide 31.0, Anion Gap 7, BUN 38 H, Creatinine 10.50 H*, Estim Creat Clear Calc 8.23, Est GFR (MDRD) Af Amer 7 L, Est GFR (MDRD) Non-Af 6 L, BUN/Creatinine Ratio 3.6 L, Glucose 142 H, Calcium 9.6, Troponin I High Sens 54 03/31/23 06:03: POC Glucose 133 H 03/31/23 12:14: POC Glucose 123 H Micro: Microbiology 03/31/23 05:30 Mucosa - Nasopharyngeal Respiratory Panel (PCR) - Final Radiography Diagnostic Testing: Radiology Impression Chest X-Ray 03/31/23 02:50 IMPRESSION: Extensive patchy areas of consolidation mid and lower lungs bilaterally consistent with pneumonia. Electronically Signed: Storm Hagen MD at 3:22 EST , Rhythm Strip Rhythm Strip: Sinus Tach Rate: 115 Ectopy: None Physical Exam Const alert, oriented x3 and no apparent distress Constitutional Narrative: obese HEENT normocephalic, head/scalp atraumatic, moist oral mucous membranes and oropharynx normal Eyes PERRL and EOMs intact bilaterally Neck no lymphadenopathy, supple, no JVD and thyroid normal Resp Resp Narrative: diminished breath sounds bibasally, no wheezes or crackles. On 3L of oxygen by n [place]. Cardio regular rate, regular rhythm, S1 normal heart sound, S2 normal heart sound and no murmurs GI normal to inspection, nondistended, normoactive bowel sounds, soft to palpation, non-tender and non-distended Extremity normal capillary refill, no clubbing, cyanosis or edema and no calf tenderness General Extremity: no tenderness to palpation of joints or extremities Skin General Skin Exam: no breakdown Neuro CN's II-XII intact bilaterally, no focal motor deficits, no sensory deficits noted and deep tendon reflexes 2+ bilaterally Motor Exam: strength 5/5 throughout and general weakness Psych thought process normal and cooperative
--- NOTE | 2023-03-31 15:55 | CASEMGMT ---
RN?CM?BLADE BENDER FURNACE TENDER?CM?spoke w/patient for initial transition planning/care coordination?assessment.?RN?CM?introduced self and role at [facility].? Pt voices understanding and consents to?assessment?at this time.? Pt is A/O at this time and answers all questions appropriately.?? Care providers, pharmacy, and demographics verified/updated at this time. PCP: Dr Mcqueen Specialists: Dr Lamar-nephrology. [facility] for [facility] HD MWF, chair time 7:[address] Nevarez-cardiology. Preferred Pharmacy: [facility], [place] Insurance: [employer] Prescription Benefit:?Yes Living Will/HPOA:?Pt states he has both LW and HCPOA, who is his , Shyanne. LNOK: , Shyanne. Uncle, Davion. 11-yr-old son. Step-dtr is 24. Living Arrangements: Lives w/, mom, 11-yr-old son, and niece, who they raise. They live in 2-story home. Bedroom and bath on 2nd floor. Bath also on main floor. Independent w/ADL's, manages his own medications, and does most of the cooking. manages most other home tasks. Transportation:?Pt states drives self and states no transportation concerns at this time.? also drives. DME: States has the following DME:?functioning glucometer w/supplies, CPAP, pulse ox, BP cuff. No home O2. Discussed home O2 set-up. Pt states prefers [employer] if he does qualify for Home O2 @ discharge. Pt states no need for further DME at this time.? HHC/SNF: No hx of either. No needs identified and pt denies need for HHC or therapy. Pt wishes to return home and states has no concerns with going home at time of discharge. Follow for any home oxygen needs or further discharge planning/needs.? Pt voices no further concerns/needs at this time.? PLAN:??Home Follow for possible home O2 @ discharge. Green sheet on chart w/instructions, if O2 is needed. Flores BSN?RN?CM
[2023-03-31 16:29] LABS: Bedside Glucose 107 mg/dL (74-106)
[2023-03-31] MEDS: Gabapentin 100 MG Capsule 200 MG PO (20:51)
[2023-03-31] MEDS: traZODone 50 MG Tablet PO (20:52)
[2023-03-31] MEDS: Insulin Glargine-YFGN 100 UNIT/ML Pen 40 UNIT SC (20:52)
[2023-03-31] MEDS: Atorvastatin Calcium 80 MG Tablet PO (20:52)
[2023-03-31 21:18] LABS: Bedside Glucose 170 mg/dL (74-106)
[2023-04-01] VITALS (9 sets, daily range): BP systolic 93–141; BP diastolic 62–82; PULSE 83–91; RESP 16–18; TEMP 36.3–36.9; O2SAT 87–98
[2023-04-01] MEDS: Pantoprazole Sodium 20 MG Tablet PO ×2 (05:55→16:29)
[2023-04-01 06:18] LABS: Bedside Glucose 145 mg/dL (74-106)
[2023-04-01 08:10] LABS: Absolute Lymphocyte Count 1.18 X10^3/uL (0.83-4.51); Absolute Neutrophil Count 6.9 X10^3/uL (2.0-7.7); Basophil# 0.04 X10^3/uL; Basophil% 0.4 % (0-1); Eosinophil# 0.13 X10^3/uL; Eosinophils% 1.4 % (0-5); Hematocrit 31.1 % (40-54); Hemoglobin 9.8 g/dL (13.0-16.5); Lymphocyte # 1.18 X10^3/ul (0.83-4.51); Lymphocyte % 13.1 % (19-41); Mean Corp Hgb Conc 31.5 g/dL (32-36); Mean Corpuscular Hgb 28.2 pg (27.0-32.0); Mean Corpuscular Volume 89.6 fL (80-94); Mean Platelet Vol. 9.8 fl (6.2-12.0); Monocyte# 0.68 X10^3/uL; Monocyte% 7.6 % (0-10); NRBC Flagged by Analyzer 0.6 % (0-5); Neutrophil # 6.88 X10^3/uL (2.7-7.7); Neutrophil % 76.7 % (47-70); Platelet Count 261 K/mm3 (150-450); RBC Distribution Width CV 17.4 % (11.6-14.6); RBC Distribution Width SD 55.5 fl (35.1-43.9); Red Blood Count 3.47 M/mm3 (4.6-6.2)
[2023-04-01 08:40] LABS: Anion Gap 9 (5-15); BUN 59 mg/dL (7-18); BUN/Creat Ratio 4.6 RATIO (10-20); Calcium,Total 9.5 mg/dL (8.5-10.1); Chloride 95 mmol/L (98-107); EST Glomerular Filtration Rate 4 mL/min (>60); Est Glom Filt Rate - Afr Amer 5 mL/min (>60); Glucose 122 mg/dL (74-106); Potassium 4.4 mmol/L (3.5-5.1); Sodium Level 135 mmol/L (136-145)
[2023-04-01] MEDS: Azithromycin 500 MG in Dextrose 5%-Water (250mL Bag) 250 ML 250 MG IV (08:40)
[2023-04-01] MEDS: 0.9% Saline Lock 10 ML Syringe IV (08:40)
[2023-04-01] MEDS: Carvedilol 25 MG Tablet PO ×2 (08:41→16:33)
[2023-04-01] MEDS: Folic Acid/Vitamin B Comp W-C 1 Capsule 1 CAP PO (08:41)
[2023-04-01] MEDS: NIFEdipine 60 MG Tablet PO (08:41)
[2023-04-01] MEDS: Sertraline 50 MG Tablet PO (08:41)
[2023-04-01] MEDS: Losartan Potassium 50 MG Tablet PO (08:42)
[2023-04-01] MEDS: Ezetimibe 10 MG Tablet PO (08:42)
[2023-04-01] MEDS: Aspirin 81 MG TAB.CHEW PO (08:42)
[2023-04-01] MEDS: Clopidogrel Bisulfate 75 MG Tablet PO (08:42)
[2023-04-01] MEDS: dexAMETHasone 10 MG/ML Vial 6 MG IV (08:42)
[2023-04-01] MEDS: Insulin Lispro 100 UNIT/ML INSULN.PEN 15 UNIT SC ×3 (08:43→16:30)
[2023-04-01] MEDS: Heparin Injection (Vial) 5,000 UNIT/ML VIAL 5000 UNIT SC ×2 (08:44→22:21)
--- NOTE | 2023-04-01 10:20 | PN_ITS ---
Subjective Subjective Patient seen and examined. He felt better. He was on room air. His oxygen had dropped down to 88% while he was dozing off but when he woke up and started talking, it came up to 89 to 90% on room air. Review of systems is otherwise negative. Objective Data Objective Data Vital Signs: Vital Signs Temp Pulse Resp BP Pulse Ox O2 Del Method O2 Flow Rate 97.3 F L 83 16 129/80 H 94 Room Air 2 04/01/23 08:48 04/01/23 08:48 04/01/23 08:48 04/01/23 08:48 04/01/23 08:48 04/01/23 08:48 04/01/23 07:14 Oxygen Flow Rate (L/min) 2 Oxygen Delivery Method Room Air Weight: 298 lb 11.622 oz Body Mass Index (BMI) 44.1 Intake & Output: Intake and Output for Last 24 Hours 03/30/23 03/31/23 04/01/23 23:59 23:59 23:59 Intake Total 1655 / 1655 200 / 200 Output Total 100 / 100 Balance 1555 / 1555 200 / 200 Lab / Micro Data 04/01/23 07:18 04/01/23 07:18 Labs: Laboratory Results - last 24 hr 03/31/23 12:14: POC Glucose 123 H 03/31/23 16:04: POC Glucose 107 H 03/31/23 20:43: POC Glucose 170 H 04/01/23 05:54: POC Glucose 145 H 04/01/23 07:18: WBC 9.0, RBC 3.47 L, Hgb 9.8 L, Hct 31.1 L, MCV 89.6, MCH 28.2, MCHC 31.5 L, RDW Std Deviation 55.5 H, RDW Coeff of Kyle 17.4 H, Plt Count 261, MPV 9.8, Immature Gran % (Auto) 0.800, Neut % (Auto) 76.7 H, Lymph % (Auto) 13.1 L, [place] % (Auto) 7.6, Eos % (Auto) 1.4, Baso % (Auto) 0.4, Absolute Neuts (auto) 6.9, Absolute Lymphs (auto) 1.18, Nucleated RBC % 0.6, Sodium 135 L, Potassium 4 .4, Chloride 95 L, Carbon Dioxide 31.0, Anion Gap 9, BUN 59 H, Creatinine 12.70 H*, Estim Creat Clear Calc 6.80, Est GFR (MDRD) Af Amer 5 L, Est GFR (MDRD) Non- Af 4 L, BUN/Creatinine Ratio 4.6 L, Glucose 122 H, Calcium 9.5 Micro: Microbiology 03/31/23 14:40 Urine, Clean Catch Legionella Antigen - Final 03/31/23 14:40 Urine, Clean Catch Streptococcus pneumoniae Antigen (M - Final 03/31/23 05:30 Mucosa - Nasopharyngeal Respiratory Panel (PCR) - Final Rhythm Strip Rhythm Strip: Sinus Tach Rate: 115 Ectopy: None Physical Exam Const alert, oriented x3 and no apparent distress Constitutional Narrative: obese HEENT normocephalic, head/scalp atraumatic, moist oral mucous membranes and oropharynx normal Eyes PERRL and EOMs intact bilaterally Neck no lymphadenopathy, supple, no JVD and thyroid normal Resp Resp Narrative: diminished breath sounds bibasally, no wheezes or crackles. On room air Cardio regular rate, regular rhythm, S1 normal heart sound, S2 normal heart sound and no murmurs GI normal to inspection, nondistended, normoactive bowel sounds, soft to palpation, non-tender and non-distended Extremity normal to inspection, full ROM, normal capillary refill, no clubbing, cyanosis or edema and no calf tenderness General Extremity: no tenderness to palpation of joints or extremities Skin General Skin Exam: no breakdown Neuro CN's II-XII intact bilaterally, moves all extremities, no focal motor deficits, no sensory deficits noted and deep tendon reflexes 2+ bilaterally Sensorium / Orientation: awake and alert Motor Exam: strength 5/5 throughout and general weakness Psych thought process normal, cooperative and affect normal Appearance: appropriate Assessment & Plan Assessment/Plan (1) Acute hypoxic respiratory failure: (2) Pneumonia due to COVID-19 virus: (3) Hypoxemia: PLAN: Plan #Hypoxia due to covid 19 infection and community acquired pneumonia * now weaned off oxygen to room air * not on remdesivir due to ESRD. On decadron * breathing treatment with bronchodilators. * titrate oxygen to maintain sats >90% * #Probable community acquired pneumonia * on ceftriaxone and azithromycin * breathing treatment with bronchodilators * titrate oxygen to maintain sats >90% * #CAD': s/p stents. on aspirin, statin and plavix #TYpe 2 diabetes mellitus * on lantus. ISS. Accuchecks ACHS * #ESRD: * on hemodialysis. Has AV fistula in [facility]. * nephrology consulted. Missed hemodialysis on Sunday as he felt unwell. * DVT prophylaxis: heparin. Charges/Coding Visit Charges Inpatient E&M: 33376 Subs Hosp L2
[2023-04-01] MEDS: Ceftriaxone 1 GM/50 ML BAG IV (10:29)
[2023-04-01 11:45] LABS: Bedside Glucose 144 mg/dL (74-106)
[2023-04-01] MEDS: Insulin Lispro 100 UNIT/ML INSULN.PEN SC (16:29)
[2023-04-01 16:53] LABS: Bedside Glucose 182 mg/dL (74-106)
[2023-04-01] MEDS: Gabapentin 100 MG Capsule 200 MG PO (22:19)
[2023-04-01] MEDS: Insulin Glargine-YFGN 100 UNIT/ML Pen 40 UNIT SC (22:19)
[2023-04-01] MEDS: traZODone 50 MG Tablet PO (22:19)
[2023-04-01] MEDS: Atorvastatin Calcium 80 MG Tablet PO (22:19)
[2023-04-01 22:43] LABS: Bedside Glucose 117 mg/dL (74-106)
[2023-04-02] VITALS (14 sets, daily range): BP systolic 129–330; BP diastolic 66–99; PULSE 75–85; RESP 16–28; TEMP 35.8–36.6; O2SAT 89–99; BMI 44.1
[2023-04-02] MEDS: Pantoprazole Sodium 20 MG Tablet PO (05:05)
[2023-04-02 06:33] LABS: Bedside Glucose 74 mg/dL (74-106)
[2023-04-02] MEDS: NIFEdipine 60 MG Tablet PO (10:31)
[2023-04-02] MEDS: Sertraline 50 MG Tablet PO (10:31)
[2023-04-02] MEDS: Aspirin 81 MG TAB.CHEW PO (10:31)
[2023-04-02] MEDS: Folic Acid/Vitamin B Comp W-C 1 Capsule 1 CAP PO (10:31)
[2023-04-02] MEDS: Ezetimibe 10 MG Tablet PO (10:31)
[2023-04-02] MEDS: Clopidogrel Bisulfate 75 MG Tablet PO (10:32)
[2023-04-02] MEDS: Carvedilol 25 MG Tablet PO (10:32)
[2023-04-02] MEDS: Losartan Potassium 50 MG Tablet PO (10:32)
[2023-04-02] MEDS: Heparin Injection (Vial) 5,000 UNIT/ML VIAL 5000 UNIT SC (10:36)
[2023-04-02] MEDS: dexAMETHasone 10 MG/ML Vial 6 MG IV (10:36)
[2023-04-02] MEDS: PureFlow B 2K Dialysis Soln 1 BAG 6 BAG PF (10:47)
[2023-04-02] MEDS: 0.9% Normal Saline 1,000 ML IV.SOLN. 1000 ML OPERA.SITE (10:47)
[2023-04-02] MEDS: Acetaminophen 325 MG Tablet 650 MG PO (10:52)
--- NOTE | 2023-04-02 11:58 | DS.PCM_ITS ---
Providers Date of Admission: 03/31/23 Date of Discharge: 04/02/23 Primary Care Physician: Dr. Norris Mcqueen MD Consultations 03/31/23 04:44 Consult: Nephrology Routine Consulting Provider: Jade Lamar Reason for Consult: dialysis EMERGENT Consult: No MD Notified: Yes Date Notified: 03/31/23 Time Notified: 08:21 Method of Notification: Answering Service Reason For Visit: COVID 19, RESPIRATORY FAILURE Diagnosis Discharge Diagnosis (1) Acute hypoxic respiratory failure: Status: Acute Code(s): J96.01 - Acute respiratory failure with hypoxia (2) Pneumonia due to COVID-19 virus: Status: Acute Code(s): U07.1 - COVID-19; J12.82 - Pneumonia due to coronavirus disease 2019 (3) Hypoxemia: Status: Acute Code(s): R09.02 - Hypoxemia Plan #Hypoxia due to covid 19 infection and community acquired pneumonia * now weaned off oxygen to room air * not on remdesivir due to ESRD. On decadron * breathing treatment with bronchodilators. * titrate oxygen to maintain sats >90% * #Probable community acquired pneumonia * on ceftriaxone and azithromycin * breathing treatment with bronchodilators * titrate oxygen to maintain sats >90% * #CAD': s/p stents. on aspirin, statin and plavix #TYpe 2 diabetes mellitus * on lantus. ISS. Accuchecks ACHS * #ESRD: * on hemodialysis. [place] AV [place] [facility] [place] * nephrology consulted. Missed hemodialysis on Sunday as he felt unwell. * DVT prophylaxis: heparin. Medications at Discharge Home Medications aspirin 81 mg chewable tablet 81 mg PO DAILY HEART 08/10/17 omeprazole 20 mg capsule,delayed release 20 mg PO BIDAC gerd 08/08/18 blood-glucose meter (FreeStyle Sycamore Lite kit) #1 ea 12/22/19 lancets 28 gauge (FreeStyle Lancets) #100 ea 12/22/19 pen needle, diabetic 32 gauge x (BD Ultra-Fine [place] Pen Needle) #400 ea 12/22/19 albuterol sulfate 90 mcg/actuation aerosol inhaler 2 puff inhalation Q6H PRN Shortness Of Breath Or Wheezing 07/26/21 atorvastatin 80 mg tablet 80 mg PO QHS CHOLESTEROL 07/26/21 carvedilol 25 mg tablet 25 mg PO BID BP 07/26/21 ezetimibe 10 mg tablet 10 mg PO DAILY HIGH CHOLESTEROL 07/26/21 gabapentin 100 mg capsule 200 mg PO QHS NERVE PAIN 07/26/21 insulin detemir U-100 100 unit/mL (3 mL) subcutaneous pen (Levemir FlexTouch U- 100 Insulin) 40 unit subcut QHS BLOODSUGAR 07/26/21 losartan 50 mg tablet 50 mg PO DAILY BLOOD PRESSURE 07/26/21 sucroferric oxyhydroxide 500 mg chewable tablet (Velphoro) 1,500 mg PO TID KIDNEY HEALTH 02/20/22 insulin aspart U-100 100 unit/mL (3 mL) subcutaneous pen (Novolog FlexPen U-100 Insulin aspart) 15 unit subcut .COMPLEX BLOOD SUGAR 01/22/23 lanthanum 1,000 mg chewable tablet 3,000 mg PO TIDCM UNKNOWN 01/22/23 nifedipine 60 mg tablet,extended release 24 hr 60 mg PO DAILY HEART 01/22/23 quinine-vitamin E capsule 1 cap PO DAILY CRAMPS 01/22/23 sertraline 50 mg tablet 50 mg PO DAILY ANTI DEPRESSANT 01/22/23 trazodone 50 mg tablet 50 mg PO QHS SLEEP 01/22/23 vitamin B complex-vitamin C-folic acid 0.8 mg tablet (Leonela-Herbie) 1 tab PO DAILY VITAMIN 01/22/23 clopidogrel 75 mg tablet 75 mg PO DAILY HEART #90 tabs 02/13/23 dexamethasone 6 mg tablet 6 mg PO DAILY #7 tabs 04/02/23 doxycycline hyclate 100 mg tablet 100 mg PO BID #10 tabs 04/02/23 Hospital Course Operations None Procedures None and Dialysis Summary of Care Provided Minutes Spent on Discharge: 55 Hospital Course: Patient is a 52-year-old male with past medical history as outlined was admitted through the ED on 03/31/2023 with complaint of shortness of breath. Said he had been sick for several weeks and gradually gotten more sick. He had sore throat and rhinitis and cough had become productive. He was unable to make his dialysis appointment 2 days before admission because he felt unwell. On admission in the ED he was saturating at 73% on room air. COVID testing was positive. He required 6 L of oxygen and he was admitted and managed for acute hypoxic respiratory failure due to COVID-19 infection. Chest x-ray was also concerning for pneumonia so he was also managed for community-acquired pneumonia and started on IV ceftriaxone and azithromycin. Nephrology was consulted for dialysis. He did have dialysis during admission. Shortness of breath improved and he was weaned down to room air. He was started on Decadron but could not be given remdesivir due to kidney impairment. Patient was discharged home on 04/02/2023. He was discharged on p.o. doxycycline 100 mg twice daily for 5 days for pneumonia and also discharged on p.o. dexamethasone 6 mg daily for 7 days to complete a 10-day course for COVID. Patient was seen and examined prior to discharge. He felt well and had no complaints. He had an uneventful night. He was having dialysis. Review of systems otherwise negative. Labs and vitals reviewed. Home medication reviewed and reconciled. Physical Exam Const alert, oriented x3 and no apparent distress Constitutional Narrative: obese General Appearance: cooperative, comfortable and well kempt Orientation / Consciousness: awake HEENT normocephalic, head/scalp atraumatic, hearing grossly normal bilaterally, moist oral mucous membranes and oropharynx normal Mouth: oral and palatal mucosa normal Eyes PERRL and EOMs intact bilaterally Neck no lymphadenopathy, supple, no JVD and thyroid normal Resp Resp Narrative: diminished breath sounds bibasally, no wheezes or crackles. On room air Cardio regular rate, regular rhythm, S1 normal heart sound, S2 normal heart sound and no murmurs GI normal to inspection, nondistended, normoactive bowel sounds, soft to palpation, non-tender and non-distended Extremity normal to inspection, full ROM, normal capillary refill, no clubbing, cyanosis or edema and no calf tenderness General Extremity: no tenderness to palpation of joints or extremities Skin no rashes or lesions noted General Skin Exam: no breakdown Neuro oriented x3, CN's II-XII intact bilaterally, moves all extremities, no focal motor deficits, no sensory deficits noted and deep tendon reflexes 2+ bilaterally Sensorium / Orientation: awake and alert Motor Exam: strength 5/5 throughout and general weakness Psych thought process normal, cooperative and affect normal Appearance: appropriate Weight / BMI Weight Weight: 298 lb 11.622 oz Body Mass Index (BMI) 44.1 ABG / Lab / Microbiology Data 04/01/23 07:18 04/01/23 07:18 Laboratory: Laboratory Results - last 24 hr 04/01/23 16:28: POC Glucose 182 H 04/01/23 22:18: POC Glucose 117 H 04/02/23 05:03: POC Glucose 74 Microbiology: Microbiology 03/31/23 23:40 Sputum, Expectorated/Coughed Gram Stain - Final 03/31/23 23:40 Sputum, Expectorated/Coughed Respiratory Culture - Preliminary Appears to be normal respiratory merritt. Further studies to follow. 03/31/23 14:40 Urine, Clean Catch Legionella Antigen - Final 03/31/23 14:40 Urine, Clean Catch Streptococcus pneumoniae Antigen (M - Final 03/31/23 05:30 Mucosa - Nasopharyngeal Respiratory Panel (PCR) - Final D/C Instructions Discharge Diet: Low fat / Low cholesterol Discharge Activity: Return to Normal Activity Weight Bearing Status: Weight bearing as tolerated Call your doctor if you observe: Fever of 101 or Higher, Shortness of breath, Dizziness, Swelling in the ankles and Chest pain Meaningful Use Info Meaningful Use Diagnoses (Choose all that apply): None applicable Discharge Plan Admission Admit Date/Time: 03/31/23 03:50 Primary Reason for Your Visit: hypoxia due to covid 19 infection Attending Provider: Gabriela Jason Primary Care Provider: Norris Mcqueen Consulting Providers: Eric Golden; Jade Lamar Instructions Patient Instructions: Coronavirus Disease 2019 (COVID-19): Overview Discharge Orders/Prescriptions Prescriptions: New doxycycline hyclate 100 mg tablet 100 mg PO BID Qty: 10 0RF dexamethasone 6 mg tablet 6 mg PO DAILY Qty: 7 0RF Continued (DME) blood-glucose meter [FreeStyle Sycamore Lite] Kit See Rx Instructions .ROUTE .MEDSUPPLY Qty: 1 0RF Rx Instructions: As directed (DME) pen needle, diabetic [BD Ultra-Fine [place] Pen Needle] 32 gauge x 5/32 needle See Rx Instructions .ROUTE .MEDSUPPLY Qty: 400 1RF Rx Instructions: 4 times daily (DME) lancets [FreeStyle Lancets] 28 gauge misc See Rx Instructions .ROUTE .MEDSUPPLY Qty: 100 5RF Rx Instructions: As directed losartan 50 mg tablet 50 mg PO DAILY atorvastatin 80 mg tablet 80 mg PO QHS ezetimibe 10 mg tablet 10 mg PO DAILY gabapentin 100 mg capsule 200 mg PO QHS albuterol sulfate 90 mcg/actuation HFA aerosol inhaler 2 puff inhalation Q6H PRN (Reason: Shortness Of Breath Or Wheezing) Levemir FlexTouch U100 Insulin 100 unit/mL (3 mL) insulin pen 40 unit subcut QHS clopidogrel 75 mg tablet 75 mg PO DAILY Qty: 90 3RF carvedilol 25 mg tablet 25 mg PO BID Patient Comments: HEART/BLOOD PRESSURE aspirin 81 MG tablet,chewable 81 mg PO DAILY Patient Comments: ANTIPLATELET omeprazole 20 MG capsule,delayed release(DR/EC) 20 mg PO BIDAC Velphoro 500 mg tablet,chewable 1,500 mg PO TID Patient Comments: CHEW & SWALLOW 3 TABLETS THREE TIMES A DAY WITH MEALS Leonela-Herbie 0.8 mg tablet 1 tab PO DAILY trazodone 50 mg tablet 50 mg PO QHS sertraline 50 mg tablet 50 mg PO DAILY nifedipine 60 mg tablet extended release 24hr 60 mg PO DAILY lanthanum 1,000 mg tablet,chewable 3,000 mg PO TIDCM quinine-vitamin E Capsule 1 cap PO DAILY insulin aspart U-100 [Novolog FlexPen U-100 Insulin] 100 unit/mL (3 mL) insulin pen 15 unit SC .COMPLEX Rx Instructions: 15 units subcutaneously TID CM Discontinued amoxicillin-pot clavulanate 500-125 mg tablet 1 tab PO BID Patient Comments: TAKE 1 TABLET BY MOUTH TWICE DAILY FOR 5 DAYS Referrals / Follow Up: Norris Mcqueen MD [Primary Care Provider] - 04/12/23 9:00 am (your apt is with alverto cobos call office on 04/02 to answer questions for office your apt for [facility] has been cancelled) Jade Lamar MD [Med Staff - Consulting] - Within 2 Weeks Disposition Disposition (needs filled in before D/C Order can be placed): Home, Self Care Charges/Coding Visit Charges Inpatient E&M: 70417 Disch Hosp >30min
[2023-04-02] MEDS: Azithromycin 500 MG in Dextrose 5%-Water (250mL Bag) 250 ML 250 MG IV (12:36)
[2023-04-02] MEDS: Insulin Lispro 100 UNIT/ML INSULN.PEN 15 UNIT SC (12:43)
[2023-04-02] MEDS: Insulin Lispro 100 UNIT/ML INSULN.PEN SC (12:44)
--- NOTE | 2023-04-02 12:50 | PHA.DC_ITS ---
Pharmacy [facility] has performed discharge medication reconciliation and counseling for this patient. The patient's discharge medication list was reviewed for discrepancies and discrepancies were resolved. The patient was counseled on the following discharge medications and changes in medications for homegoing were reviewed. The Reason for Use, instructions for use, and potential side effects were reviewed for all new medications. The patient's questions regarding all of their medications were answered. 1. Dexamethasone 6 mg PO daily x 7 days 2. Doxycycline 100 mg PO BID x 5 days The patient was able to verbally demonstrate an understanding of their discharge medications. Medications at Discharge Home Medications aspirin 81 mg chewable tablet 81 mg PO DAILY HEART 08/10/17 omeprazole 20 mg capsule,delayed release 20 mg PO BIDAC gerd 08/08/18 blood-glucose meter (FreeStyle [place] Lite kit) #1 ea 12/22/19 lancets 28 gauge (FreeStyle Lancets) #100 ea 12/22/19 pen needle, diabetic 32 gauge x 5/32 (BD Ultra-Fine [place] Pen Needle) #400 ea 12/22/19 albuterol sulfate 90 mcg/actuation aerosol inhaler 2 puff inhalation Q6H PRN Shortness Of Breath Or Wheezing 07/26/21 atorvastatin 80 mg tablet 80 mg PO QHS CHOLESTEROL 07/26/21 carvedilol 25 mg tablet 25 mg PO BID BP 07/26/21 ezetimibe 10 mg tablet 10 mg PO DAILY HIGH CHOLESTEROL 07/26/21 gabapentin 100 mg capsule 200 mg PO QHS NERVE PAIN 07/26/21 insulin detemir U-100 100 unit/mL (3 mL) subcutaneous pen (Levemir FlexTouch U- 100 Insulin) 40 unit subcut QHS BLOODSUGAR 07/26/21 losartan 50 mg tablet 50 mg PO DAILY BLOOD PRESSURE 07/26/21 sucroferric oxyhydroxide 500 mg chewable tablet (Velphoro) 1,500 mg PO TID KIDNEY HEALTH 02/20/22 insulin aspart U-100 100 unit/mL (3 mL) subcutaneous pen (Novolog FlexPen U-100 Insulin aspart) 15 unit subcut .COMPLEX BLOOD SUGAR 01/22/23 lanthanum 1,000 mg chewable tablet 3,000 mg PO TIDCM UNKNOWN 01/22/23 nifedipine 60 mg tablet,extended release 24 hr 60 mg PO DAILY HEART 01/22/23 quinine-vitamin E capsule 1 cap PO DAILY CRAMPS 01/22/23 sertraline 50 mg tablet 50 mg PO DAILY ANTI DEPRESSANT 01/22/23 trazodone 50 mg tablet 50 mg PO QHS SLEEP 01/22/23 vitamin B complex-vitamin C-folic acid 0.8 mg tablet (Leonela-Herbie) 1 tab PO DAILY VITAMIN 01/22/23 clopidogrel 75 mg tablet 75 mg PO DAILY HEART #90 tabs 02/13/23 dexamethasone 6 mg tablet 6 mg PO DAILY #7 tabs 04/02/23 doxycycline hyclate 100 mg tablet 100 mg PO BID #10 tabs 04/02/23
--- NOTE | 2023-04-02 13:47 | CASEMGMT ---
Pt does not qualify for home oxygen.
--- NOTE | 2023-04-02 13:51 | CASEMGMT ---
Social Work - ADVANCED DIRECTIVE VALIDATION Patient completed POAHC in December 2022, which has been scanned into the chart. No Living will has been completed, as per the POAHC document. Patient's Shyanne is the primary POAHC. -PAVAN Sousa
[2023-04-02] MEDS: Ceftriaxone 1 GM/50 ML BAG IV (14:08)
--- NOTE | 2023-04-02 15:00 | CON.PCM.RE_ITS ---
Assessment & Plan Assessment/Plan (1) ESRD on dialysis: PLAN: HD today. see orders. possible dc today HPI Consult Data Date of Consult: 04/02/23 HPI Narrative Reason for Consultation: ESRD HPI Narrative: LISA MASTERSON, is a 52 M who presents to the hospital with shortness of breath. He was diagnosed with COVID pneumonia. Received dialysis earlier this morning. feels better [facility] Medical History (Updated 03/31/23 @ 04:40 by Toyin Farley) Anemia of chronic renal failure, stage 4 (severe) Arteriosclerotic cardiovascular disease Cardiology follow-up encounter Chronic kidney disease with end stage renal failure on dialysis COPD (chronic obstructive pulmonary disease) CPAP (continuous positive airway pressure) dependence Degenerative disc disease, cervical Demand ischemia Diabetes Diabetes mellitus, type II, insulin dependent Diabetic polyneuropathy (04/2017) Dialysis patient Elevated troponin Essential (primary) hypertension Fistula GERD (gastroesophageal reflux disease) High cholesterol History of CHF (congestive heart failure) History of echocardiogram History of stress test Hypertension Hypotension Insulin dependent diabetes mellitus Leg cramps Morbid obesity Myocardial infarct Non-ischemic cardiomyopathy Non-smoker Problem with dialysis access Sleep apnea Syncope (07/2018) Systolic and diastolic CHF, acute Wears glasses Wears partial dentures Home Medications aspirin 81 mg chewable tablet 81 mg PO DAILY HEART 08/10/17 [History Last Taken 01/22/23] omeprazole 20 mg capsule,delayed release 20 mg PO BIDAC gerd 08/08/18 [History Last Taken 01/22/23] blood-glucose meter (FreeStyle [place] Lite kit) #1 ea 12/22/19 [Rx Last Taken Unknown] lancets 28 gauge (FreeStyle Lancets) #100 ea 12/22/19 [Rx Last Taken Unknown] pen needle, diabetic 32 gauge x 5/32 (BD Ultra-Fine [place] Pen Needle) #400 ea 12/22/19 [Rx Last Taken Unknown] albuterol sulfate 90 mcg/actuation aerosol inhaler 2 puff inhalation Q6H PRN Shortness Of Breath Or Wheezing 07/26/21 [History Last Taken 01/21/23] atorvastatin 80 mg tablet 80 mg PO QHS CHOLESTEROL 07/26/21 [History Last Taken 01/21/23] carvedilol 25 mg tablet 25 mg PO BID BP 07/26/21 [History Last Taken 01/21/23] ezetimibe 10 mg tablet 10 mg PO DAILY HIGH CHOLESTEROL 07/26/21 [History Last Taken 01/21/23] gabapentin 100 mg capsule 200 mg PO QHS NERVE PAIN 07/26/21 [History Last Taken 01/21/23] insulin detemir U-100 100 unit/mL (3 mL) subcutaneous pen (Levemir FlexTouch U- 100 Insulin) 40 unit subcut QHS BLOODSUGAR 07/26/21 [History Last Taken 01/21/23] losartan 50 mg tablet 50 mg PO DAILY BLOOD PRESSURE 07/26/21 [History Last Taken 01/21/23] sucroferric oxyhydroxide 500 mg chewable tablet (Velphoro) 1,500 mg PO TID KIDNEY HEALTH 02/20/22 [History Last Taken 01/21/23] insulin aspart U-100 100 unit/mL (3 mL) subcutaneous pen (Novolog FlexPen U-100 Insulin aspart) 15 unit subcut .COMPLEX BLOOD SUGAR 01/22/23 [History Last Taken 01/21/23] lanthanum 1,000 mg chewable tablet 3,000 mg PO TIDCM UNKNOWN 01/22/23 [History Last Taken 01/21/23] nifedipine 60 mg tablet,extended release 24 hr 60 mg PO DAILY HEART 01/22/23 [History Last Taken 01/21/23] quinine-vitamin E capsule 1 cap PO DAILY CRAMPS 01/22/23 [History Last Taken 01/21/23] sertraline 50 mg tablet 50 mg PO DAILY ANTI DEPRESSANT 01/22/23 [History Last Taken 01/21/23] trazodone 50 mg tablet 50 mg PO QHS SLEEP 01/22/23 [History Last Taken 01/21/23] vitamin B complex-vitamin C-folic acid 0.8 mg tablet (Leonela-Herbie) 1 tab PO DAILY VITAMIN 01/22/23 [History Last Taken 01/21/23] clopidogrel 75 mg tablet 75 mg PO DAILY HEART #90 tabs 02/13/23 [Rx Last Taken Unknown] dexamethasone 6 mg tablet 6 mg PO DAILY #7 tabs 04/02/23 [Rx Last Taken Unknown] doxycycline hyclate 100 mg tablet 100 mg PO BID #10 tabs 04/02/23 [Rx Last Taken Unknown] Allergy/AdvReac Type Severity Reaction Status Date / Time liraglutide [From Victoza] Allergy Unknown unknown Verified 03/31/23 01:02 NSAIDS (Non-Steroidal AdvReac Severe Renal Verified 03/31/23 01:02 Anti-Inflamma failure BLANCA Inhibitors AdvReac Intermediate cough Verified 03/31/23 01:02 Family History Mother Hypertension Grandmother Aneurysm Other NSTEMI, initial episode of care Stented coronary artery Surgical History History of angioplasty of peripheral vessel (07/2021) History of coronary artery stent placement Hx of cardiac catheterization (~01/23/23) Presence of surgically created arteriovenous shunt for hemodialysis (07/2017) Stented coronary artery (01/23/23) Social History household members: spouse housing: house Smoking Status: Never smoker alcohol intake: never substance use type: does not use Physical Exam Narrative deferred due to covid Lab / Micro Data 04/01/23 07:18 04/01/23 07:18 Labs: Laboratory Results - last 24 hr 04/01/23 16:28: POC Glucose 182 H 04/01/23 22:18: POC Glucose 117 H 04/02/23 05:03: POC Glucose 74 Micro: Microbiology 03/31/23 23:40 Sputum, Expectorated/Coughed Gram Stain - Final 03/31/23 23:40 Sputum, Expectorated/Coughed Respiratory Culture - Preliminary Appears to be normal respiratory merritt. Further studies to follow. Rhythm Strip Rhythm Strip: Sinus Tach Rate: 115 Ectopy: None
[2023-04-02 16:35] LABS: Bedside Glucose 231 mg/dL (74-106)
[2023-04-02 16:35] LABS: Bedside Glucose 173 mg/dL (74-106)
== END 2023-04-02 16:48 | disposition home or self-care (01) | DRG 137 ==
LOC: ED 01:49 → MS3 04:26
PROVIDERS: Emergency Provider Emergency Medicine; PCP Family Medicine; Visit Provider Student in an Organized Health Care Education/Training Program
DX: U07.1 COVID-19 (principal); J96.01 Acute respiratory failure with hypoxia; J12.82 Pneumonia due to coronavirus disease 2019; I12.0 Hypertensive chronic kidney disease with stage 5 chronic kidney disease or end stage renal disease; N18.6 End stage renal disease; J15.9 Unspecified bacterial pneumonia; E11.22 Type 2 diabetes mellitus with diabetic chronic kidney disease; J44.0 Chronic obstructive pulmonary disease with (acute) lower respiratory infection; E11.42 Type 2 diabetes mellitus with diabetic polyneuropathy; Z99.2 Dependence on renal dialysis; Z79.4 Long term (current) use of insulin; E78.00 Pure hypercholesterolemia, unspecified; I25.10 Atherosclerotic heart disease of native coronary artery without angina pectoris; J31.0 Chronic rhinitis; I25.2 Old myocardial infarction; Z79.02 Long term (current) use of antithrombotics/antiplatelets; Z95.5 Presence of coronary angioplasty implant and graft; Z79.82 Long term (current) use of aspirin
CPT/HCPCS: 71045; 80048; 82962; 84145; 84484; 85025; 85379; 87070; 87205; 87449; 87633; 90937; 93005; 94640; 94668; 99285; J7030; A4216; G0257

== ENCOUNTER 2023-04-09 23:33 | Inpatient (IN) | payer MEDICARE, MEDICAID, SELFPAY ==
[2023-04-09 23:35] VITALS: BP 162/110; PULSE 148; RESP 22; TEMP 36.4; O2SAT 90; BMI 46.8
[2023-04-09 23:43] VITALS: O2SAT 94
--- NOTE | 2023-04-09 23:43 | EKG12_ITS ---
Test Reason : RHYTHM CONVERSION Blood Pressure : / mmHG Vent. Rate : 096 BPM Atrial Rate : 096 BPM P-R Int : 136 ms QRS Dur : 088 ms QT Int : 368 ms P-R-T Axes : 026 -34 115 degrees QTc Int : 464 ms Normal sinus rhythm Left axis deviation Nonspecific ST and T wave abnormality Prolonged QT Abnormal ECG Confirmed by TOMI WILLETT, JULIO ([id number]), graphics editor JEF MATIAS ([id number]) on 04/16/2023 6:58:56 AM Referred By: Ender Zhong Confirmed By:RIRI KRISHNA MD
--- NOTE | 2023-04-09 23:44 | EDS_ITS ---
HPI History of Present Illness Chief Complaint: Chest Pain Detail of Chief Complaint: Chest pain Informant: patient Narrative Narrative: Patient presents with chest pain that started by 45 minutes ago while in bed. Patient felt like his heart was racing a little bit. Patient tells me he had a heart attack 7 or 8 weeks ago and had a stent. Patient also was admitted 2 weeks ago for COVID and pneumonia. Patient denies recent travel or surgery otherwise. Patient describes a sharp pain in the center of his chest. Squad gave patient aspirin and nitro and his pain down to a 5 out of 10 currently. Denies nausea or vomiting. Denies significant shortness of breath. [facility] Medical History (Updated 04/10/23 @ 02:[address] Hannah Rhoades, ) Anemia of chronic renal failure, stage 4 (severe) Arteriosclerotic cardiovascular disease Cardiology follow-up encounter Chronic kidney disease with end stage renal failure on dialysis COPD (chronic obstructive pulmonary disease) CPAP (continuous positive airway pressure) dependence Degenerative disc disease, cervical Demand ischemia Diabetes Diabetes mellitus, type II, insulin dependent Diabetic polyneuropathy (04/2017) Dialysis patient Elevated troponin ESRD on dialysis Essential (primary) hypertension Fistula GERD (gastroesophageal reflux disease) High cholesterol History of CHF (congestive heart failure) History of echocardiogram History of stress test Hypertension Hypotension Insulin dependent diabetes mellitus Leg cramps Morbid obesity Myocardial infarct Non-ischemic cardiomyopathy Non-smoker Pneumonia due to COVID-19 virus Problem with dialysis access Sleep apnea Syncope (07/2018) Systolic and diastolic CHF, acute Wears glasses Wears partial dentures Home Medications aspirin 81 mg chewable tablet 81 mg PO DAILY HEART 08/10/17 [History Last Taken 01/22/23] omeprazole 20 mg capsule,delayed release 20 mg PO BIDAC gerd 08/08/18 [History Last Taken 01/22/23] blood-glucose meter (FreeStyle [place] Lite kit) #1 ea 12/22/19 [Rx Last Taken Unknown] lancets 28 gauge (FreeStyle Lancets) #100 ea 12/22/19 [Rx Last Taken Unknown] pen needle, diabetic 32 gauge x /32 (BD Ultra-Fine [place] Pen Needle) #400 ea 12/22/19 [Rx Last Taken Unknown] albuterol sulfate 90 mcg/actuation aerosol inhaler 2 puff inhalation Q6H PRN Shortness Of Breath Or Wheezing 07/26/21 [History Last Taken 01/21/23] atorvastatin 80 mg tablet 80 mg PO QHS CHOLESTEROL 07/26/21 [History Last Taken 01/21/23] carvedilol 25 mg tablet 25 mg PO BID BP 07/26/21 [History Last Taken 01/21/23] ezetimibe 10 mg tablet 10 mg PO DAILY HIGH CHOLESTEROL 07/26/21 [History Last Taken 01/21/23] gabapentin 100 mg capsule 200 mg PO QHS NERVE PAIN 07/26/21 [History Last Taken 01/21/23] insulin detemir U-100 100 unit/mL (3 mL) subcutaneous pen (Levemir FlexTouch U- 100 Insulin) 40 unit subcut QHS BLOODSUGAR 07/26/21 [History Last Taken 01/21/23] losartan 50 mg tablet 50 mg PO DAILY BLOOD PRESSURE 07/26/21 [History Last Taken 01/21/23] sucroferric oxyhydroxide 500 mg chewable tablet (Velphoro) 1,500 mg PO TID KIDNEY HEALTH 02/20/22 [History Last Taken 01/21/23] insulin aspart U-100 100 unit/mL (3 mL) subcutaneous pen (Novolog FlexPen U-100 Insulin aspart) 15 unit subcut .COMPLEX BLOOD SUGAR 01/22/23 [History Last Taken 01/21/23] lanthanum 1,000 mg chewable tablet 3,000 mg PO TIDCM UNKNOWN 01/22/23 [History Last Taken 01/21/23] nifedipine 60 mg tablet,extended release 24 hr 60 mg PO DAILY HEART 01/22/23 [History Last Taken 01/21/23] quinine-vitamin E capsule 1 cap PO DAILY CRAMPS 01/22/23 [History Last Taken 01/21/23] sertraline 50 mg tablet 50 mg PO DAILY ANTI DEPRESSANT 01/22/23 [History Last Taken 01/21/23] trazodone 50 mg tablet 50 mg PO QHS SLEEP 01/22/23 [History Last Taken 01/21/23] vitamin B complex-vitamin C-folic acid 0.8 mg tablet (Leonela-Herbie) 1 tab PO DAILY VITAMIN 01/22/23 [History Last Taken 01/21/23] clopidogrel 75 mg tablet 75 mg PO DAILY HEART #90 tabs 02/13/23 [Rx Last Taken Unknown] dexamethasone 6 mg tablet 6 mg PO DAILY #7 tabs 04/02/23 [Rx Last Taken Unknown] doxycycline hyclate 100 mg tablet 100 mg PO BID #10 tabs 04/02/23 [Rx Last Taken Unknown] dulaglutide 0.75 mg/0.5 mL subcutaneous pen injector (Trulicity) mg subcut QWEEK diabetes 04/10/23 [History Last Taken Unknown] Allergy/AdvReac Type Severity Reaction Status Date / Time liraglutide [From Victoza] Allergy Unknown unknown Verified 04/09/23 23:34 NSAIDS (Non-Steroidal AdvReac Severe Renal Verified 04/09/23 23:34 Anti-Inflamma failure BLANCA Inhibitors AdvReac Intermediate cough Verified 04/09/23 23:34 Family History Mother Hypertension Grandmother Aneurysm Other NSTEMI, initial episode of care Stented coronary artery Surgical History (Updated 04/10/23 @ 00:02 by Blanca Ott) History of angioplasty of peripheral vessel (07/2021) History of coronary artery stent placement Hx of cardiac catheterization (~01/23/23) Presence of surgically created arteriovenous shunt for hemodialysis (07/2017) Stented coronary artery (01/23/23) Social History household members: spouse housing: house Smoking Status: Never smoker alcohol intake: never substance use type: does not use ROS ROS ED Review of Systems ROS Unobtainable: other Constitutional Constitutional ED: Reports lethargy; Denies chills, fever(s), sweats or weight loss Eyes Eyes: Denies blurry vision, change in vision or diplopia ENT ENT ED: Denies rhinorrhea or sore throat Cardiovascular Cardiovascular: Reports chest pain and racing heartbeat; Denies orthopnea Respiratory/Chest Respiratory/Chest: Denies cough, dyspnea, dyspnea on exertion, orthopnea or sputum Gastrointestinal Gastrointestinal: Denies abdominal pain, diarrhea, nausea or vomiting Genitourinary Genitourinary ED: Denies dysuria, hematuria or urinary frequency Musculoskeletal Musculoskeletal: Denies arthralgias, back pain, myalgias or neck pain Integumentary Denies abscess, Abrasions or rash Neurologic Neurologic: Denies headache(s) or weakness Psychiatric Psychiatric: Denies anxiety, depression or suicidal thoughts Endocrine Endocrinology: Denies polydipsia, polyphagia or polyuria Hematologic/Lymphatic Hematologic/Lymphatic: Denies easy bleeding, easy bruising or lymphadenopathy Allergic/Immunologic Allergic/Immunologic ED: Denies mouth swelling, tongue swelling or urticaria EXAM Physical Exam Const Vital Signs: 04/09/23 23:35 04/09/23 23:38 04/09/23 23:43 Temperature 97.5 F L Temperature Source Temporal Pulse Rate 148 H Respiratory Rate 22 H Respiratory Effort Short of Breath Respiratory Pattern Tachypnea Blood Pressure 162/110 H Blood Pressure Mean 127 Pulse Ox 90 94 Oxygen Delivery Method Room Air Room Air 04/10/23 01:03 Temperature Temperature Source Pulse Rate 98 Respiratory Rate 17 Respiratory Effort Respiratory Pattern Blood Pressure 117/90 H Blood Pressure Mean 99 Pulse Ox 95 Oxygen Delivery Method Room Air Positive well nourished and well developed General Appearance ED: well developed and NAD HEENT Reports TM's clear and moist mucous membranes normocephalic and atraumatic; Negative for trauma or tenderness Tympanic Membrane ED: Yes TM's clear Eyes PERRL and EOMs intact bilaterally General Eye ED: Negative for pale conjunctiva or scleral icterus Neck no lymphadenopathy, supple and no JVD General: Negative for tenderness Chest Wall inspection of chest normal and palpation of chest normal Chest: Negative for tenderness Resp normal respiratory effort and clear to auscultation bilaterally Effort and Inspection: Negative for respiratory distress or pain with movement Auscultation: Negative for rhonchi, wheezes or diminished lung sounds Cardio S1 normal heart sound, S2 normal heart sound and no murmurs; Negative for regular rate or regular rhythm Rate: tachycardic Peripheral Pulses: pulses 2+ throughout GI normal to inspection, nondistended, normoactive bowel sounds, soft to palpation, non-tender, non-distended and no masses Back/Spine no CVA tenderness and no thoracic nor lumbar tenderness Extremity normal to inspection General Extremety ED: Negative for edema General Extremity: Negative for edema Neuro oriented x3, CN's II-XII intact bilaterally, no sensory deficits noted and gait normal Sensorium / Orientation: awake, alert, oriented to person, oriented to place and oriented to time Motor Exam: strength 5/5 throughout and strength abnormal Psych mental status grossly normal Skin no rashes or lesions noted and no wounds Heart Score History: Moderately Suspicious ECG: Nonspecific Repolarization Age: >45 - <65 years Risk Factors: >/= 3 Risk Factors or History of CAD Troponin: >/=3 x Normal Limit Score: 7 MDM MDM MDM Narrative Medical decision making narrative: Presents with chest pain. EMS EKG showed what I suspected was atrial flutter with 2-1 block. Patient has no prior history of A-fib or a flutter. IV line established on arrival. EKG obtained showed supraventricular tachycardia with heart rate of 148 bpm which I suspect is likely atrial flutter with 2 1 block. Patient will receive Cardizem 20 mg IV bolus. Lab workup will be obtained. Chest x-ray will be obtained. After Cardizem bolus patient converted back to sinus rhythm. Repeat EKG shows sinus rhythm with ventricular rate of of [address] changes. Patient's pain resolved. CBC with differential obtained showed white count of 9.8 with hemoglobin 10.8 and platelet count 261. Chemistries unremarkable. Initial troponin was normal at 41. Discussed case initially with cardiology Dr. Daniels who asked that we start patient on Eliquis and if delta troponin normal he could be discharged to home. Unfortunately patient's delta troponin returned significantly elevated at 909. Discussed case with hospitalist will evaluate patient for admission. Lab Data Attestation: I reviewed the patient's lab results. Labs: Laboratory Results - last 24 hr 04/09/23 04/10/23 23:29 01:30 WBC 9.8 RBC 3.71 L Hgb 10.8 L Hct 33.3 L MCV 89.8 MCH 29.1 MCHC 32.4 RDW Std Deviation 59.2 H RDW Coeff of Kyle 19.3 H Plt Count 261 MPV 9.5 Immature Gran % (Auto) 0.800 Neut % (Auto) 90.4 H Lymph % (Auto) 4.4 L [place] % (Auto) 3.9 Eos % (Auto) 0.3 Baso % (Auto) 0.2 Absolute Neuts (auto) 8.9 H Absolute Lymphs (auto) 0.43 L Nucleated RBC % 0.2 Differential Comment SCANNED Hypochromasia 2+ Anisocytosis 2+ Target Cells 1+ Sodium 136 Potassium 5.0 Chloride 98 Carbon Dioxide 32.0 Anion Gap 6 BUN 45 H Creatinine 7.42 H* Estim Creat Clear Calc 11.65 Est GFR (MDRD) Af Amer 10 L Est GFR (MDRD) Non-Af 8 L BUN/Creatinine Ratio 6.1 L Glucose 235 H Calcium 9.1 Troponin I High Sens 41 909 H* Radiography Diagnostic Testing: Clinical Impression(s) from Imaging Studies Chest X-Ray 04/09/23 23:45 IMPRESSION: Partial resolution of extensive bilateral infiltrates with residual airspace disease. Findings consistent with resolving pneumonia. Electronically Signed: Justyn Alfaro MD at 0:21 EST Reading Location ID and State: [facility] / [place] Tel , Service support , 1 view chest x-ray obtained interpreted by myself is increased markings both lungs. Radiology felt findings consistent with resolving pneumonia. EKG Initial EKG: Attestation: I personally reviewed and interpreted this EKG as follows: Comments: Supraventricular tachycardia with ventricular rate of [address] changes. I suspect atrial flutter with 2-1 block. Prior EKG tracings: available for review Prior: Changed Discharge Plan Triage Chief Complaint: Chest Pain ED Provider: Hannah Rhoades Dx/Rx/DC Orders Clinical Impression: Atrial flutter, Non-ST elevation [place] (NSTEMI), Chest pain Prescriptions: No Action (DME) blood-glucose meter [FreeStyle [place] Lite] Kit See Rx Instructions .ROUTE .MEDSUPPLY Qty: 1 0RF Rx Instructions: As directed (DME) pen needle, diabetic [BD Ultra-Fine [place] Pen Needle] 32 gauge x 5/32 needle See Rx Instructions .ROUTE .MEDSUPPLY Qty: 400 1RF Rx Instructions: 4 times daily (DME) lancets [FreeStyle Lancets] 28 gauge misc See Rx Instructions .ROUTE .MEDSUPPLY Qty: 100 5RF Rx Instructions: As directed losartan 50 mg tablet 50 mg PO DAILY atorvastatin 80 mg tablet 80 mg PO QHS ezetimibe 10 mg tablet 10 mg PO DAILY gabapentin 100 mg capsule 200 mg PO QHS albuterol sulfate 90 mcg/actuation HFA aerosol inhaler 2 puff inhalation Q6H PRN (Reason: Shortness Of Breath Or Wheezing) Levemir FlexTouch U100 Insulin 100 unit/mL (3 mL) insulin pen 40 unit subcut QHS clopidogrel 75 mg tablet 75 mg PO DAILY Qty: 90 3RF carvedilol 25 mg tablet 25 mg PO BID Patient Comments: HEART/BLOOD PRESSURE aspirin 81 MG tablet,chewable 81 mg PO DAILY Patient Comments: ANTIPLATELET omeprazole 20 MG capsule,delayed release(DR/EC) 20 mg PO BIDAC Velphoro 500 mg tablet,chewable 1,500 mg PO TID Patient Comments: CHEW & SWALLOW 3 TABLETS THREE TIMES A DAY WITH MEALS Trulicity 0.75 mg/0.5 mL pen injector SUBCUT QWEEK Patient Comments: Inject 0.75 mg subcutaneously one time a week. Inject dose once per week. Discard Pen After Rx Instructions: pt unsure of dosage amount Leonela-Herbie 0.8 mg tablet 1 tab PO DAILY trazodone 50 mg tablet 50 mg PO QHS sertraline 50 mg tablet 50 mg PO DAILY nifedipine 60 mg tablet extended release 24hr 60 mg PO DAILY lanthanum 1,000 mg tablet,chewable 3,000 mg PO TIDCM quinine-vitamin E Capsule 1 cap PO DAILY insulin aspart U-100 [Novolog FlexPen U-100 Insulin] 100 unit/mL (3 mL) insulin pen 15 unit [place] .COMPLEX Rx Instructions: 15 units subcutaneously TID CM doxycycline hyclate 100 mg tablet 100 mg PO BID Qty: 10 0RF dexamethasone 6 mg tablet 6 mg PO DAILY Qty: 7 0RF Primary Care Provider: Norris Mcqueen Referrals: Norris Mcqueen MD [Primary Care Provider] - Disposition Disposition: Acute Care Hospital [facility]
--- NOTE | 2023-04-09 23:45 | RAD_ITS ---
INDICATION: chest pain EXAMINATION/TECHNIQUE: X-RAY - portable upright AP chest x-ray COMPARISON: 03/31/2023 FINDINGS: LINES/DEVICES: None. LUNGS: Partial resolution of bilateral airspace opacities with residual bilateral hazy opacities, no consolidations or pleural effusions. MEDIASTINUM AND CARDIOVASCULAR STRUCTURES: Cardiac silhouette stable within upper normal limits. BONES AND SOFT TISSUES: No acute changes. RAD/Chest 1 View (Portable) IMPRESSION: Partial resolution of extensive bilateral infiltrates with residual airspace disease. Findings consistent with resolving pneumonia. Electronically Signed: Justyn Alfaro MD at 0:21 EST ,
[2023-04-09 23:50] LABS: Absolute Lymphocyte Count 0.43 X10^3/uL (0.83-4.51); Absolute Neutrophil Count 8.9 X10^3/uL (2.0-7.7); Basophil# 0.02 X10^3/uL; Basophil% 0.2 % (0-1); Eosinophil# 0.03 X10^3/uL; Eosinophils% 0.3 % (0-5); Hematocrit 33.3 % (40-54); Hemoglobin 10.8 g/dL (13.0-16.5); Lymphocyte # 0.43 X10^3/ul (0.83-4.51); Lymphocyte % 4.4 % (19-41); Mean Corp Hgb Conc 32.4 g/dL (32-36); Mean Corpuscular Hgb 29.1 pg (27.0-32.0); Mean Corpuscular Volume 89.8 fL (80-94); Mean Platelet Vol. 9.5 fl (6.2-12.0); Monocyte# 0.38 X10^3/uL; Monocyte% 3.9 % (0-10); NRBC Flagged by Analyzer 0.2 % (0-5); Neutrophil # 8.89 X10^3/uL (2.7-7.7); Neutrophil % 90.4 % (47-70); POSITIVE DIFFERENTIAL YES; Platelet Count 261 K/mm3 (150-450); RBC Distribution Width CV 19.3 % (11.6-14.6); RBC Distribution Width SD 59.2 fl (35.1-43.9); Red Blood Count 3.71 M/mm3 (4.6-6.2); White Blood Count 9.8 K/mm3 (4.4-11.0)
[2023-04-09] MEDS: dilTIAZem 25 MG/5 ML Vial 20 MG IV BOLUS (23:52)
[2023-04-09 23:57] LABS: Differential Indicated SCAN CRITERIA MET
[2023-04-10] VITALS (8 sets, daily range): BP systolic 117–160; BP diastolic 90–98; PULSE 87–98; RESP 14–20; TEMP 36.3–36.5; O2SAT 94–97; BMI 46.0
--- NOTE | 2023-04-10 | EKG12_ITS ---
Test Reason : CP Blood Pressure : / mmHG Vent. Rate : 148 BPM Atrial Rate : 148 BPM P-R Int : 126 ms QRS Dur : 086 ms QT Int : 270 ms P-R-T Axes : 048 -45 116 degrees QTc Int : 423 ms Critical Test Result: High HR Sinus tachycardia Left anterior fascicular block Nonspecific ST and T wave abnormality Abnormal ECG Confirmed by TOMI WILLETT, JULIO ([id number]), tape editor JEF MATIAS ([id number]) on 04/16/2023 6:59:19 AM Referred By: Ender Zhong Confirmed By:RIRI KRISHNA MD
[2023-04-10] MEDS: 0.9% Normal Saline (1000mL) 1,000 ML 150 ML IV (00:09)
[2023-04-10 00:15] LABS: Anion Gap 6 (5-15); BUN 45 mg/dL (7-18); BUN/Creat Ratio 6.1 RATIO (10-20); Calcium,Total 9.1 mg/dL (8.5-10.1); Chloride 98 mmol/L (98-107); Creatinine, Serum 7.42 mg/dL (0.70-1.30); EST Glomerular Filtration Rate 8 mL/min (>60); Est Glom Filt Rate - Afr Amer 10 mL/min (>60); Estimated Creatinine Clearance 11.65 ml/min; Glucose 235 mg/dL (74-106); Sodium Level 136 mmol/L (136-145); Troponin-I HS (w/2H Reflex) 41 pg/mL (3.0-78.0)
[2023-04-10] MEDS: APIXABAN 5 MG TABLET PO (01:02)
[2023-04-10 01:07] LABS: Differential Comment SCANNED; Hypochromasia 2+
[2023-04-10 01:08] LABS: Anisocytosis 2+; Target Cells 1+
[2023-04-10 01:46] LABS: Reflex Troponin-HS? (from REC) Y
[2023-04-10 02:06] LABS: Troponin-I HS 909 pg/mL (3.0-78.0)
--- NOTE | 2023-04-10 02:26 | HP.PCM_ITS ---
HPI - General General Date of Admission: 04/10/23 Date of Service: 04/10/23 Chief Complaint: Chest pain HPI Narrative LISA MASTERSON, is a 52 M who presents to the emergency room with acute onset of chest pain. Onset of symptoms began while patient was asleep approximately 45 minutes prior to arrival to the emergency room. Initial EKG showed supraventricular tachycardia with a 2-1 block and initial troponin was negative. Patient has significant past medical history of coronary artery disease and was stented in the circumflex artery in December of this month. He also is on dialysis for end-stage renal disease. Initial set of troponin was negative however second set of troponin repeat returned at 900 and decision was made to admit patient. Patient is currently chest pain-free and after receiving Cardizem initially in the emergency room he converted to normal sinus rhythm. No fevers or chills or shortness of breath at present. Patient is recovering from a remote COVID infection. He will be admitted remain n.p.o. and cardiology consulted for possible intervention. [facility] Medical History (Updated 04/10/23 @ 02:[address] Hannah Rhoades, ) Anemia of chronic renal failure, stage 4 (severe) Arteriosclerotic cardiovascular disease Cardiology follow-up encounter Chronic kidney disease with end stage renal failure on dialysis COPD (chronic obstructive pulmonary disease) CPAP (continuous positive airway pressure) dependence Degenerative disc disease, cervical Demand ischemia Diabetes Diabetes mellitus, type II, insulin dependent Diabetic polyneuropathy (04/2017) Dialysis patient Elevated troponin ESRD on dialysis Essential (primary) hypertension Fistula GERD (gastroesophageal reflux disease) High cholesterol History of CHF (congestive heart failure) History of echocardiogram History of stress test Hypertension Hypotension Insulin dependent diabetes mellitus Leg cramps Morbid obesity Myocardial infarct Non-ischemic cardiomyopathy Non-smoker Pneumonia due to COVID-19 virus Problem with dialysis access Sleep apnea Syncope (07/2018) Systolic and diastolic CHF, acute Wears glasses Wears partial dentures Home Medications aspirin 81 mg chewable tablet 81 mg PO DAILY HEART 08/10/17 [History Last Taken 01/22/23] omeprazole 20 mg capsule,delayed release 20 mg PO BIDAC gerd 08/08/18 [History Last Taken 01/22/23] blood-glucose meter (FreeStyle [place] Lite kit) #1 ea 12/22/19 [Rx Last Taken Unknown] lancets 28 gauge (FreeStyle Lancets) #100 ea 12/22/19 [Rx Last Taken Unknown] pen needle, diabetic 32 gauge x 5/32 (BD Ultra-Fine [place] Pen Needle) #400 ea 12/22/19 [Rx Last Taken Unknown] albuterol sulfate 90 mcg/actuation aerosol inhaler 2 puff inhalation Q6H PRN Shortness Of Breath Or Wheezing 07/26/21 [History Last Taken 01/21/23] atorvastatin 80 mg tablet 80 mg PO QHS CHOLESTEROL 07/26/21 [History Last Taken 01/21/23] carvedilol 25 mg tablet 25 mg PO BID BP 07/26/21 [History Last Taken 01/21/23] ezetimibe 10 mg tablet 10 mg PO DAILY HIGH CHOLESTEROL 07/26/21 [History Last Taken 01/21/23] gabapentin 100 mg capsule 200 mg PO QHS NERVE PAIN 07/26/21 [History Last Taken 01/21/23] insulin detemir U-100 100 unit/mL (3 mL) subcutaneous pen (Levemir FlexTouch U- 100 Insulin) 40 unit subcut QHS BLOODSUGAR 07/26/21 [History Last Taken 01/21/23] losartan 50 mg tablet 50 mg PO DAILY BLOOD PRESSURE 07/26/21 [History Last Taken 01/21/23] sucroferric oxyhydroxide 500 mg chewable tablet (Velphoro) 1,500 mg PO TID KIDNEY HEALTH 02/20/22 [History Last Taken 01/21/23] insulin aspart U-100 100 unit/mL (3 mL) subcutaneous pen (Novolog FlexPen U-100 Insulin aspart) 15 unit subcut .COMPLEX BLOOD SUGAR 01/22/23 [History Last Taken 01/21/23] lanthanum 1,000 mg chewable tablet 3,000 mg PO TIDCM UNKNOWN 01/22/23 [History Last Taken 01/21/23] nifedipine 60 mg tablet,extended release 24 hr 60 mg PO DAILY HEART 01/22/23 [History Last Taken 01/21/23] quinine-vitamin E capsule 1 cap PO DAILY CRAMPS 01/22/23 [History Last Taken 01/21/23] sertraline 50 mg tablet 50 mg PO DAILY ANTI DEPRESSANT 01/22/23 [History Last Taken 01/21/23] trazodone 50 mg tablet 50 mg PO QHS SLEEP 01/22/23 [History Last Taken 01/21/23] vitamin B complex-vitamin C-folic acid 0.8 mg tablet (Leonela-Herbie) 1 tab PO DAILY VITAMIN 01/22/23 [History Last Taken 01/21/23] clopidogrel 75 mg tablet 75 mg PO DAILY HEART #90 tabs 02/13/23 [Rx Last Taken Unknown] dexamethasone 6 mg tablet 6 mg PO DAILY #7 tabs 04/02/23 [Rx Last Taken Unknown] doxycycline hyclate 100 mg tablet 100 mg PO BID #10 tabs 04/02/23 [Rx Last Taken Unknown] dulaglutide 0.75 mg/0.5 mL subcutaneous pen injector (Trulicity) mg subcut QWEEK diabetes 04/10/23 [History Last Taken Unknown] Allergy/AdvReac Type Severity Reaction Status Date / Time liraglutide [From Victoza] Allergy Unknown unknown Verified 04/09/23 23:34 NSAIDS (Non-Steroidal AdvReac Severe Renal Verified 04/09/23 23:34 Anti-Inflamma failure BLANCA Inhibitors AdvReac Intermediate cough Verified 04/09/23 23:34 Family History Mother Hypertension Grandmother Aneurysm Other NSTEMI, initial episode of care Stented coronary artery Surgical History (Updated 04/10/23 @ 00:02 by Blanca Ott) History of angioplasty of peripheral vessel (07/2021) History of coronary artery stent placement Hx of cardiac catheterization (~01/23/23) Presence of surgically created arteriovenous shunt for hemodialysis (07/2017) Stented coronary artery (01/23/23) Social History household members: spouse housing: house Smoking Status: Never smoker alcohol intake: never substance use type: does not use Vital Signs Vital Signs Vital Signs: 04/09/23 23:35 04/09/23 23:38 04/09/23 23:43 Temperature 97.5 F L Temperature Source Temporal Pulse Rate 148 H Respiratory Rate 22 H Respiratory Effort Short of Breath Respiratory Pattern Tachypnea Blood Pressure 162/110 H Blood Pressure Mean 127 Pulse Ox 90 94 Oxygen Delivery Method Room Air Room Air 04/10/23 01:03 04/10/23 02:24 Temperature Temperature Source Pulse Rate 98 93 Respiratory Rate 17 14 Respiratory Effort Respiratory Pattern Blood Pressure 117/90 H 142/94 H Blood Pressure Mean 99 110 Pulse Ox 95 95 Oxygen Delivery Method Room Air Weight Weight: 317 lb 3.923 oz Body Mass Index (BMI) 46.8 Results Lab / Micro Data 04/09/23 23:29 04/09/23 23:29 Labs: Laboratory Results - last 24 hr 04/09/23 23:29: WBC 9.8, RBC 3.71 L, Hgb 10.8 L, Hct 33.3 L, MCV 89.8, MCH 29.1, MCHC 32.4, RDW Std Deviation 59.2 H, RDW Coeff of Kyle 19.3 H, Plt Count 261, MPV 9.5, Immature Gran % (Auto) 0.800, Neut % (Auto) 90.4 H, Lymph % (Auto) 4.4 L, [place] % (Auto) 3.9, Eos % (Auto) 0.3, Baso % (Auto) 0.2, Absolute Neuts (auto) 8.9 H, Absolute Lymphs (auto) 0.43 L, Nucleated RBC % 0.2, Differential Comment SCANNED, Hypochromasia 2+, Anisocytosis 2+, Target Cells 1+, Sodium 136, Potassium 5.0, Chloride 98, Carbon Dioxide 32.0, Anion Gap 6, BUN 45 H, Creatinine 7.42 H*, Estim Creat Clear Calc 11.65, Est GFR (MDRD) Af Amer 10 L, Est GFR (MDRD) Non-Af 8 L, BUN/Creatinine Ratio 6.1 L, Glucose 235 H, Calcium 9.1, Troponin I High Sens 41 04/10/23 01:30: Troponin I High Sens 909 H* Imagaing Radiology Impression Chest X-Ray 04/09/23 23:45 IMPRESSION: Partial resolution of extensive bilateral infiltrates with residual airspace disease. Findings consistent with resolving pneumonia. Electronically Signed: Justyn Alfaro MD at 0:21 EST ,
--- NOTE | 2023-04-10 02:28 | HP.PCM_ITS ---
HPI - General General Date of Admission: 04/10/23 Date of Service: 04/10/23 Chief Complaint: Chest pain HPI Narrative LISA MASTERSON, is a 52 M who presents to the emergency room with chief complaint of chest pain. Onset of symptoms began approximately 45 minutes prior to arrival to the emergency room. Patient has significant past medical history of coronary artery disease status post stenting in January 20 to the circumflex artery. Patient also has significant past medical history of end- stage renal disease for which she is on dialysis. Patient is currently chest pain-free after receiving Cardizem that resolved a supraventricular tachycardia with a 2-1 block and is currently in sinus rhythm. Patient denies chest pain, shortness of breath fever or chills and has recovered from recent COVID infection. Patient will be admitted to progressive care unit made n.p.o. and cardiology consult [facility] Medical History (Updated 04/10/23 @ 02:[address] Hannah Rhoades, DO) Anemia of chronic renal failure, stage 4 (severe) Arteriosclerotic cardiovascular disease Cardiology follow-up encounter Chronic kidney disease with end stage renal failure on dialysis COPD (chronic obstructive pulmonary disease) CPAP (continuous positive airway pressure) dependence Degenerative disc disease, cervical Demand ischemia Diabetes Diabetes mellitus, type II, insulin dependent Diabetic polyneuropathy (04/2017) Dialysis patient Elevated troponin ESRD on dialysis Essential (primary) hypertension Fistula GERD (gastroesophageal reflux disease) High cholesterol History of CHF (congestive heart failure) History of echocardiogram History of stress test Hypertension Hypotension Insulin dependent diabetes mellitus Leg cramps Morbid obesity Myocardial infarct Non-ischemic cardiomyopathy Non-smoker Pneumonia due to COVID-19 virus Problem with dialysis access Sleep apnea Syncope (07/2018) Systolic and diastolic CHF, acute Wears glasses Wears partial dentures Home Medications aspirin 81 mg chewable tablet 81 mg PO DAILY HEART 08/10/17 [History Last Taken 01/22/23] omeprazole 20 mg capsule,delayed release 20 mg PO BIDAC gerd 08/08/18 [History Last Taken 01/22/23] blood-glucose meter (FreeStyle Dawson Lite kit) #1 ea 12/22/19 [Rx Last Taken Unknown] lancets 28 gauge (FreeStyle Lancets) #100 ea 12/22/19 [Rx Last Taken Unknown] pen needle, diabetic 32 gauge x 5/32 (BD Ultra-Fine [place] Pen Needle) #400 ea 12/22/19 [Rx Last Taken Unknown] albuterol sulfate 90 mcg/actuation aerosol inhaler 2 puff inhalation Q6H PRN Shortness Of Breath Or Wheezing 07/26/21 [History Last Taken 01/21/23] atorvastatin 80 mg tablet 80 mg PO QHS CHOLESTEROL 07/26/21 [History Last Taken 01/21/23] carvedilol 25 mg tablet 25 mg PO BID BP 07/26/21 [History Last Taken 01/21/23] ezetimibe 10 mg tablet 10 mg PO DAILY HIGH CHOLESTEROL 07/26/21 [History Last Taken 01/21/23] gabapentin 100 mg capsule 200 mg PO QHS NERVE PAIN 07/26/21 [History Last Taken 01/21/23] insulin detemir U-100 100 unit/mL (3 mL) subcutaneous pen (Levemir FlexTouch U- 100 Insulin) 40 unit subcut QHS BLOODSUGAR 07/26/21 [History Last Taken 01/21/23] losartan 50 mg tablet 50 mg PO DAILY BLOOD PRESSURE 07/26/21 [History Last Taken 01/21/23] sucroferric oxyhydroxide 500 mg chewable tablet (Velphoro) 1,500 mg PO TID KIDNEY HEALTH 02/20/22 [History Last Taken 01/21/23] insulin aspart U-100 100 unit/mL (3 mL) subcutaneous pen (Novolog FlexPen U-100 Insulin aspart) 15 unit subcut .COMPLEX BLOOD SUGAR 01/22/23 [History Last Taken 01/21/23] lanthanum 1,000 mg chewable tablet 3,000 mg PO TIDCM UNKNOWN 01/22/23 [History Last Taken 01/21/23] nifedipine 60 mg tablet,extended release 24 hr 60 mg PO DAILY HEART 01/22/23 [History Last Taken 01/21/23] quinine-vitamin E capsule 1 cap PO DAILY CRAMPS 01/22/23 [History Last Taken 01/21/23] sertraline 50 mg tablet 50 mg PO DAILY ANTI DEPRESSANT 01/22/23 [History Last Taken 01/21/23] trazodone 50 mg tablet 50 mg PO QHS SLEEP 01/22/23 [History Last Taken 01/21/23] vitamin B complex-vitamin C-folic acid 0.8 mg tablet (Leonela-Herbie) 1 tab PO DAILY VITAMIN 01/22/23 [History Last Taken 01/21/23] clopidogrel 75 mg tablet 75 mg PO DAILY HEART #90 tabs 02/13/23 [Rx Last Taken Unknown] dexamethasone 6 mg tablet 6 mg PO DAILY #7 tabs 04/02/23 [Rx Last Taken Unknown] doxycycline hyclate 100 mg tablet 100 mg PO BID #10 tabs 04/02/23 [Rx Last Taken Unknown] dulaglutide 0.75 mg/0.5 mL subcutaneous pen injector (Trulicity) mg subcut QWEEK diabetes 04/10/23 [History Last Taken Unknown] Allergy/AdvReac Type Severity Reaction Status Date / Time liraglutide [From Victoza] Allergy Unknown unknown Verified 04/09/23 23:34 NSAIDS (Non-Steroidal AdvReac Severe Renal Verified 04/09/23 23:34 Anti-Inflamma failure BLANCA Inhibitors AdvReac Intermediate cough Verified 04/09/23 23:34 Family History Mother Hypertension Grandmother Aneurysm Other NSTEMI, initial episode of care Stented coronary artery Surgical History (Updated 04/10/23 @ 00:02 by Blanca Ott) History of angioplasty of peripheral vessel (07/2021) History of coronary artery stent placement Hx of cardiac catheterization (~01/23/23) Presence of surgically created arteriovenous shunt for hemodialysis (07/2017) Stented coronary artery (01/23/23) Social History household members: spouse housing: house Smoking Status: Never smoker alcohol intake: never substance use type: does not use ROS Constitutional Constitutional: Denies chills or fever(s) Eyes Eyes: Denies blurry vision ENT HEENT: Denies abnormal hearing Cardiovascular Cardiovascular: Reports chest pain and palpitations Respiratory/Chest Respiratory/Chest: Denies cough Gastrointestinal Gastrointestinal: Denies abdominal pain Genitourinary Genitourinary: Denies dysuria Musculoskeletal Musculoskeletal: Denies back pain Neurologic Neurologic: Denies abnormal gait Psychiatric Psychiatric: Denies anxiety Endocrine Endocrinology: Denies change in body appearance Vital Signs Vital Signs Vital Signs: 04/09/23 23:35 04/09/23 23:38 04/09/23 23:43 Temperature 97.5 F L Temperature Source Temporal Pulse Rate 148 H Respiratory Rate 22 H Respiratory Effort Short of Breath Respiratory Pattern Tachypnea Blood Pressure 162/110 H Blood Pressure Mean 127 Pulse Ox 90 94 Oxygen Delivery Method Room Air Room Air 04/10/23 01:03 04/10/23 02:24 Temperature Temperature Source Pulse Rate 98 93 Respiratory Rate 17 14 Respiratory Effort Respiratory Pattern Blood Pressure 117/90 H 142/94 H Blood Pressure Mean 99 110 Pulse Ox 95 95 Oxygen Delivery Method Room Air Weight Weight: 317 lb 3.923 oz Body Mass Index (BMI) 46.8 Physical Exam Const oriented x3 General Appearance: cooperative and well developed HEENT normocephalic and head/scalp atraumatic Eyes PERRL Neck no lymphadenopathy Lymph Lymphatic: no lymphadenopathy noted Resp normal respiratory effort, normal air movement and clear to auscultation bilaterally Cardio regular rate, regular rhythm, S1 normal heart sound and S2 normal heart sound GI normal to inspection, nondistended, normoactive bowel sounds Extremity normal capillary refill Skin General Skin Exam: no breakdown Neuro no focal motor deficits and no sensory deficits noted Psych thought process normal, cooperative and affect normal Results Lab / Micro Data 04/09/23 23:29 04/09/23 23:29 Labs: Laboratory Results - last 24 hr 04/09/23 23:29: WBC 9.8, RBC 3.71 L, Hgb 10.8 L, Hct 33.3 L, MCV 89.8, MCH 29.1, MCHC 32.4, RDW Std Deviation 59.2 H, RDW Coeff of Kyle 19.3 H, Plt Count 261, MPV 9.5, Immature Gran % (Auto) 0.800, Neut % (Auto) 90.4 H, Lymph % (Auto) 4.4 L, [place] % (Auto) 3.9, Eos % (Auto) 0.3, Baso % (Auto) 0.2, Absolute Neuts (auto) 8.9 H, Absolute Lymphs (auto) 0.43 L, Nucleated RBC % 0.2, Differential Comment SCANNED, Hypochromasia 2+, Anisocytosis 2+, Target Cells 1+, Sodium 136, Potassium 5.0, Chloride 98, Carbon Dioxide 32.0, Anion Gap 6, BUN 45 H, Creatinine 7.42 H*, Estim Creat Clear Calc 11.65, Est GFR (MDRD) Af Amer 10 L, Est GFR (MDRD) Non-Af 8 L, BUN/Creatinine Ratio 6.1 L, Glucose 235 H, Calcium 9.1, Troponin I High Sens 41 04/10/23 01:30: Troponin I High Sens 909 H* Imagaing Radiology Impression Chest X-Ray 04/09/23 23:45 IMPRESSION: Partial resolution of extensive bilateral infiltrates with residual airspace disease. Findings consistent with resolving pneumonia. Electronically Signed: Justyn Alfaro MD at 0:21 EST , Assessment & Plan Assessment/Plan (1) Chest pain: (2) Non-ST elevation [place] (NSTEMI): (3) VERÓNICA (obstructive sleep apnea): (4) Dyslipidemia: (5) Elevated troponin: (6) Stented coronary artery: (7) Morbid obesity: PLAN: Plan 1 non-ST elevation SD with elevated troponin?admit patient to progressive care unit, make patient n.p.o., consult cardiology, order nitro, oxygen and aspirin per routine 2. Obstructive sleep apnea may continue CPAP machine 3. Dyslipidemia?continue statin medication when patient is taking p.o. 4. DVT prophylaxis SCDs due to end-stage renal disease Charges/Coding Visit Charges Inpatient E&M: 03299 Init Hosp L2
--- NOTE | 2023-04-10 03:39 | EKG12_ITS ---
Test Reason : CP ADMIT Blood Pressure : / mmHG Vent. Rate : 085 BPM Atrial Rate : 085 BPM P-R Int : 142 ms QRS Dur : 086 ms QT Int : 396 ms P-R-T Axes : 036 -32 -18 degrees QTc Int : 471 ms Sinus rhythm with occasional Premature ventricular complexes Left axis deviation Nonspecific ST and T wave abnormality Prolonged QT Abnormal ECG When compared with ECG of 10-APR-2023 00:02, MANUAL COMPARISON REQUIRED, DATA IS UNCONFIRMED Confirmed by TOMI WILLETT, JULIO ([id number]), photo editor MADYSON YOST ([id number]) on 04/16/2023 1:00:55 P M Referred By: Ender Zhong Confirmed By:RIRI KRISHNA MD
[2023-04-10] MEDS: 0.9% Normal Saline (1000mL) 1,000 ML 75 ML IV (03:48)
[2023-04-10 05:04] LABS: Absolute Lymphocyte Count 0.72 X10^3/uL (0.83-4.51); Absolute Neutrophil Count 6.6 X10^3/uL (2.0-7.7); Basophil# 0.01 X10^3/uL; Basophil% 0.1 % (0-1); Eosinophil# 0.02 X10^3/uL; Eosinophils% 0.3 % (0-5); Hematocrit 29.7 % (40-54); Hemoglobin 9.7 g/dL (13.0-16.5); Lymphocyte # 0.72 X10^3/ul (0.83-4.51); Lymphocyte % 9.1 % (19-41); Mean Corp Hgb Conc 32.7 g/dL (32-36); Mean Corpuscular Hgb 29.1 pg (27.0-32.0); Mean Corpuscular Volume 89.2 fL (80-94); Mean Platelet Vol. 8.9 fl (6.2-12.0); Monocyte% 6.3 % (0-10); NRBC Flagged by Analyzer 0 % (0-5); Neutrophil # 6.62 X10^3/uL (2.7-7.7); Neutrophil % 83.4 % (47-70); Platelet Count 208 K/mm3 (150-450); RBC Distribution Width CV 18.8 % (11.6-14.6); RBC Distribution Width SD 57.8 fl (35.1-43.9); Red Blood Count 3.33 M/mm3 (4.6-6.2); White Blood Count 7.9 K/mm3 (4.4-11.0)
[2023-04-10 05:21] LABS: Anion Gap 8 (5-15); BUN 47 mg/dL (7-18); BUN/Creat Ratio 6.2 RATIO (10-20); Calcium,Total 8.5 mg/dL (8.5-10.1); Chloride 100 mmol/L (98-107); Creatinine, Serum 7.52 mg/dL (0.70-1.30); EST Glomerular Filtration Rate 8 mL/min (>60); Est Glom Filt Rate - Afr Amer 10 mL/min (>60); Estimated Creatinine Clearance 11.49 ml/min; Glucose 102 mg/dL (74-106); Magnesium 2.1 mg/dL (1.6-2.6); Phosphorus 7.6 mg/dL (2.5-4.9); Potassium 5.1 mmol/L (3.5-5.1); Sodium Level 138 mmol/L (136-145)
[2023-04-10 05:41] LABS: Troponin-I HS 3782 pg/mL (3.0-78.0)
--- NOTE | 2023-04-10 10:56 | PN_ITS ---
Subjective Subjective Patient seen and examined. He was admitted in the early hours of this morning with a complaint of chest pain. He was found to have elevated troponins, and is being managed for nonstemi. He had no complaints at time of my evaluation. REview of systems is otherwise negative. Objective Data Objective Data Vital Signs: Vital Signs Temp Pulse Resp BP Pulse Ox O2 Del Method 97.7 F L 94 15 151/95 H 97 Room Air 04/10/23 09:36 04/10/23 09:36 04/10/23 09:36 04/10/23 09:36 04/10/23 09:36 04/10/23 09:36 Oxygen Delivery Method Room Air Weight: 311 lb 11.738 oz Body Mass Index (BMI) 46.0 Intake & Output: Intake and Output for Last 24 Hours 04/08/23 04/09/23 04/10/23 23:59 23:59 23:59 Intake Total 415 / 415 Balance 415 / 415 Lab / Micro Data 04/10/23 04:57 04/10/23 04:57 Labs: Laboratory Results - last 24 hr 04/09/23 23:29: WBC 9.8, RBC 3.71 L, Hgb 10.8 L, Hct 33.3 L, MCV 89.8, MCH 29.1, MCHC 32.4, RDW Std Deviation 59.2 H, RDW Coeff of Kyle 19.3 H, Plt Count 261, MPV 9.5, Immature Gran % (Auto) 0.800, Neut % (Auto) 90.4 H, Lymph % (Auto) 4.4 L, [place] % (Auto) 3.9, Eos % (Auto) 0.3, Baso % (Auto) 0.2, Absolute Neuts (auto) 8.9 H, Absolute Lymphs (auto) 0.43 L, Nucleated RBC % 0.2, Differential Comment SCANNED, Hypochromasia 2+, Anisocytosis 2+, Target Cells 1+, Sodium 136, Potassium 5.0, Chloride 98, Carbon Dioxide 32.0, Anion Gap 6, BUN 45 H, Creatinine 7.42 H*, Estim Creat Clear Calc 11.65, Est GFR (MDRD) Af Amer 10 L, Est GFR (MDRD) Non-Af 8 L, BUN/Creatinine Ratio 6.1 L, Glucose 235 H, Calcium 9.1, Troponin I High Sens 41 04/10/23 01:30: Troponin I High Sens 909 H* 04/10/23 04:57: WBC 7.9, RBC 3.33 L, Hgb 9.7 L, Hct 29.7 L, MCV 89.2, MCH 29.1, MCHC 32.7, RDW Std Deviation 57.8 H, RDW Coeff of Kyle 18.8 H, Plt Count 208, MPV 8.9, Immature Gran % (Auto) 0.800, Neut % (Auto) 83.4 H, Lymph % (Auto) 9.1 L, [place] % (Auto) 6.3, Eos % (Auto) 0.3, Baso % (Auto) 0.1, Absolute Neuts (auto) 6.6, Absolute Lymphs (auto) 0.72 L, Nucleated RBC % 0, Sodium 138, Potassium 5.1, Chloride 100, Carbon Dioxide 30.0, Anion Gap 8, BUN 47 H, Creatinine 7.52 H*, Estim Creat Clear Calc 11.49, Est GFR (MDRD) Af Amer 10 L, Est GFR (MDRD) Non-Af 8 L, BUN/Creatinine Ratio 6.2 L, Glucose 102, Calcium 8.5, Phosphorus 7.6 H, Magnesium 2.1, Troponin I High Sens 3782 H* Radiography Diagnostic Testing: Radiology Impression Chest X-Ray 04/09/23 23:45 IMPRESSION: Partial resolution of extensive bilateral infiltrates with residual airspace disease. Findings consistent with resolving pneumonia. Electronically Signed: Justyn Alfaro MD at 0:21 EST , Physical Exam Const alert, oriented x3 and no apparent distress Constitutional Narrative: obese General Appearance: cooperative HEENT head/scalp atraumatic, moist oral mucous membranes and oropharynx normal Eyes PERRL and EOMs intact bilaterally Neck no lymphadenopathy, supple and no JVD Lymph Lymphatic: no lymphadenopathy noted and no lymphedema noted Resp normal respiratory effort, normal air movement and clear to auscultation bilaterally Cardio regular rate, regular rhythm, S1 normal heart sound, S2 normal heart sound and no murmurs GI normal to inspection, nondistended, normoactive bowel sounds, soft to palpation and non-tender Extremity normal capillary refill, no clubbing, cyanosis or edema and no calf tenderness General Extremity: no tenderness to palpation of joints or extremities Skin General Skin Exam: no breakdown Neuro CN's II-XII intact bilaterally, no focal motor deficits, no sensory deficits noted and deep tendon reflexes 2+ bilaterally Motor Exam: strength 5/5 throughout and general weakness Psych thought process normal and cooperative Appearance: appropriate Assessment & Plan Assessment/Plan (1) Chest pain: (2) Non-ST elevation [place] (NSTEMI): PLAN: Plan #Nonstemi * was admitted with a complaint of chest pain. * hasnt had any more chest pain today. * initial troponin was 41, then trended up to 909 and peaked at 3782. * on SL nitroglycerin. PO aspirin 81mg daily * cardiology consulted. Await rec;s * had an echocardiogram on 01/22/2023 which showed a moderately dilated LV with moderate concentric lVH, generalied hypokinesis and inferior and posterior severe hypokinesis to akinesis; EF of 35% and stage II diastolic dysfuncion, with severely enlarged right atrium and moderately severe 3+ tricuspid valve insufficiency. RVSP is 42mmHg. * he did have cardiac cath in December 2022 which showed 80% stenosis of the proximal obtuse marginal artery and 70% mid left circumflex artery stenosis, 60% stenosis of the proximal LAD and 50% stenosis of the proximal RCA. He had successful shockwave lithotripsy and drug-eluting stent placed with elevated left to left artery. * on aspirin, plavix and statin. on carvedilol * #VERÓNICA: on CPAP qhs #ESRD: on hemodialysis. Has AV fistula in [facility] [place]. Nephrology consulted. #Hypertension: on carvedilol and losartan as well as nifedipine. #TYpe 2 diabetes mellitus: on lantus. ISS. Currently NPO, so lantus on hold. Accuchecks q6hrly #DVT prophylaxis; SCDs Charges/Coding Visit Charges Inpatient E&M: 59355 Subs Hosp L2
--- NOTE | 2023-04-10 14:33 | PCM.CONS.C ---
Assessment & Plan Assessment/Plan (1) Non-ST elevation VT (NSTEMI): PLAN: Appears to be related to residual underlying CAD and a flutter with rapid ventricular response. Recommend checking another troponin today and if that is showing an uptrend then checking a troponin again tomorrow morning. (2) Atrial flutter: QUALIFIERS: Atrial flutter type: unspecified Qualified Code(s): I48.92 - Unspecified atrial flutter PLAN: Patient went into a flutter with rapid ventricular response despite being on carvedilol 25 mg p.o. twice daily. He does have history of LV dysfunction. He has ESRD as well. We will switch from carvedilol to metoprolol succinate 200 mg p.o. twice daily. We will also stop the nifedipine and add amlodipine 10 mg for blood pressure control. As far as anticoagulation is concerned, his aspirin can be stopped and he could be started on Eliquis 5 mg p.o. twice daily. This could be initiated tomorrow. If patient's troponin continues to go up significantly then he may need coronary angiography tomorrow. HPI Consult Data Date of Consult: 04/10/23 HPI Narrative Reason for Consultation: Elevated troponin HPI Narrative: LISA MASTERSON, is a 52 M who presents chest pain and palpitations. He was found to be in a flutter with 2-1 block. He was given a dose of IV Cardizem in the emergency room and he converted to sinus rhythm.He has not had recurrence of his chest pain or a flutter since then. He has history of recent non-STEMI treated with stent to the circumflex. Patient's troponin went up to around 3700. He has residual CAD that is being treated medically at this time. [facility] Medical History (Updated 04/10/23 @ 14:[address] Tammie Daniels MD) Anemia of chronic renal failure, stage 4 (severe) Arteriosclerotic cardiovascular disease Cardiology follow-up encounter Chronic kidney disease with end stage renal failure on dialysis COPD (chronic obstructive pulmonary disease) CPAP (continuous positive airway pressure) dependence Degenerative disc disease, cervical Demand ischemia Diabetes Diabetes mellitus, type II, insulin dependent Diabetic polyneuropathy (04/2017) Dialysis patient Elevated troponin ESRD on dialysis Essential (primary) hypertension Fistula GERD (gastroesophageal reflux disease) High cholesterol History of CHF (congestive heart failure) History of echocardiogram History of stress test Hypertension Hypotension Insulin dependent diabetes mellitus Leg cramps Morbid obesity Myocardial infarct Non-ischemic cardiomyopathy Non-smoker Pneumonia due to COVID-19 virus Problem with dialysis access Sleep apnea Syncope (07/2018) Systolic and diastolic CHF, acute Wears glasses Wears partial dentures Home Medications aspirin 81 mg chewable tablet 81 mg PO DAILY HEART 08/10/17 [History Last Taken 01/22/23] omeprazole 20 mg capsule,delayed release 20 mg PO BIDAC gerd 08/08/18 [History Last Taken 01/22/23] blood-glucose meter (FreeStyle [place] Lite kit) #1 ea 12/22/19 [Rx Last Taken Unknown] lancets 28 gauge (FreeStyle Lancets) #100 ea 12/22/19 [Rx Last Taken Unknown] pen needle, diabetic 32 gauge x 5/32 (BD Ultra-Fine [place] Pen Needle) #400 ea 12/22/19 [Rx Last Taken Unknown] albuterol sulfate 90 mcg/actuation aerosol inhaler 2 puff inhalation Q6H PRN Shortness Of Breath Or Wheezing 07/26/21 [History Last Taken 01/21/23] atorvastatin 80 mg tablet 80 mg PO QHS CHOLESTEROL 07/26/21 [History Last Taken 01/21/23] carvedilol 25 mg tablet 25 mg PO BID BP 07/26/21 [History Last Taken 01/21/23] ezetimibe 10 mg tablet 10 mg PO DAILY HIGH CHOLESTEROL 07/26/21 [History Last Taken 01/21/23] gabapentin 100 mg capsule 200 mg PO QHS NERVE PAIN 07/26/21 [History Last Taken 01/21/23] insulin detemir U-100 100 unit/mL (3 mL) subcutaneous pen (Levemir FlexTouch U-100 Insulin) 40 unit subcut QHS BLOODSUGAR 07/26/21 [History Last Taken 01/21/23] losartan 50 mg tablet 50 mg PO DAILY BLOOD PRESSURE 07/26/21 [History Last Taken 01/21/23] sucroferric oxyhydroxide 500 mg chewable tablet (Velphoro) 1,500 mg PO TID KIDNEY HEALTH 02/20/22 [History Last Taken 01/21/23] insulin aspart U-100 100 unit/mL (3 mL) subcutaneous pen (Novolog FlexPen U-100 Insulin aspart) 15 unit subcut .COMPLEX BLOOD SUGAR 01/22/23 [History Last Taken 01/21/23] lanthanum 1,000 mg chewable tablet 3,000 mg PO TIDCM UNKNOWN 01/22/23 [History Last Taken 01/21/23] nifedipine 60 mg tablet,extended release 24 hr 60 mg PO DAILY HEART 01/22/23 [History Last Taken 01/21/23] quinine-vitamin E capsule 1 cap PO DAILY CRAMPS 01/22/23 [History Last Taken 01/21/23] sertraline 50 mg tablet 50 mg PO DAILY ANTI DEPRESSANT 01/22/23 [History Last Taken 01/21/23] trazodone 50 mg tablet 50 mg PO QHS SLEEP 01/22/23 [History Last Taken 01/21/23] vitamin B complex-vitamin C-folic acid 0.8 mg tablet (Leonela-Herbie) 1 tab PO DAILY VITAMIN 01/22/23 [History Last Taken 01/21/23] clopidogrel 75 mg tablet 75 mg PO DAILY HEART #90 tabs 02/13/23 [Rx Last Taken Unknown] dexamethasone 6 mg tablet 6 mg PO DAILY #7 tabs 04/02/23 [Rx Last Taken Unknown] doxycycline hyclate 100 mg tablet 100 mg PO BID #10 tabs 04/02/23 [Rx Last Taken Unknown] dulaglutide 0.75 mg/0.5 mL subcutaneous pen injector (Trulicity) mg subcut QWEEK diabetes 04/10/23 [History Last Taken Unknown] Allergy/AdvReac Type Severity Reaction Status Date / Time liraglutide [From Victoza] Allergy Unknown unknown Verified 04/09/23 23:34 NSAIDS (Non-Steroidal AdvReac Severe Renal Verified 04/09/23 23:34 Anti-Inflamma failure BLANCA Inhibitors AdvReac Intermediate cough Verified 04/09/23 23:34 Family History Mother Hypertension Grandmother Aneurysm Other NSTEMI, initial episode of care Stented coronary artery Surgical History (Updated 04/10/23 @ 00:02 by Background Daadanon) History of angioplasty of peripheral vessel (07/2021) History of coronary artery stent placement Hx of cardiac catheterization (~01/23/23) Presence of surgically created arteriovenous shunt for hemodialysis (07/2017) Stented coronary artery (01/23/23) Social History household members: spouse housing: house Smoking Status: Never smoker alcohol intake: never substance use type: does not use Physical Exam Const alert and oriented x3 HEENT normocephalic Eyes no scleral icterus Resp normal respiratory effort Cardio regular rate Risk Stratification Risk Stratification Applicable: No Charges/Coding Visit Charges Inpatient E&M: 20911 Init Hosp L2 Objective Data Vital Signs: Vital Signs Temp Pulse Resp BP Pulse Ox O2 Del Method 97.7 F L 94 15 151/95 H 97 Room Air 04/10/23 09:36 04/10/23 09:36 04/10/23 09:36 04/10/23 09:36 04/10/23 09:36 04/10/23 11:46 Oxygen Delivery Method Room Air Weight: 311 lb 11.738 oz Body Mass Index (BMI) 46.0 Intake & Output: Intake and Output for Last 24 Hours 04/08/23 04/09/23 04/10/23 23:59 23:59 23:59 Intake Total 415 / 415 Balance 415 / 415 Lab / Micro Data 04/10/23 04:57 04/10/23 04:57 Labs: Laboratory Results - last 24 hr 04/09/23 23:29: WBC 9.8, RBC 3.71 L, Hgb 10.8 L, Hct 33.3 L, MCV 89.8, MCH 29.1, MCHC 32.4, RDW Std Deviation 59.2 H, RDW Coeff of Kyle 19.3 H, Plt Count 261, MPV 9.5, Immature Gran % (Auto) 0.800, Neut % (Auto) 90.4 H, Lymph % (Auto) 4.4 L, [place] % (Auto) 3.9, Eos % (Auto) 0.3, Baso % (Auto) 0.2, Absolute Neuts (auto) 8.9 H, Absolute Lymphs (auto) 0.43 L, Nucleated RBC % 0.2, Differential Comment SCANNED, Hypochromasia 2+, Anisocytosis 2+, Target Cells 1+, Sodium 136, Potassium 5.0, Chloride 98, Carbon Dioxide 32.0, Anion Gap 6, BUN 45 H, Creatinine 7.42 H*, Estim Creat Clear Calc 11.65, Est GFR (MDRD) Af Amer 10 L, Est GFR (MDRD) Non-Af 8 L, BUN/Creatinine Ratio 6.1 L, Glucose 235 H, Calcium 9.1, Troponin I High Sens 41 04/10/23 01:30: Troponin I High Sens 909 H* 04/10/23 04:57: WBC 7.9, RBC 3.33 L, Hgb 9.7 L, Hct 29.7 L, MCV 89.2, MCH 29.1, MCHC 32.7, RDW Std Deviation 57.8 H, RDW Coeff of Kyle 18.8 H, Plt Count 208, MPV 8.9, Immature Gran % (Auto) 0.800, Neut % (Auto) 83.4 H, Lymph % (Auto) 9.1 L, [place] % (Auto) 6.3, Eos % (Auto) 0.3, Baso % (Auto) 0.1, Absolute Neuts (auto) 6.6, Absolute Lymphs (auto) 0.72 L, Nucleated RBC % 0, Sodium 138, Potassium 5.1, Chloride 100, Carbon Dioxide 30.0, Anion Gap 8, BUN 47 H, Creatinine 7.52 H*, Estim Creat Clear Calc 11.49, Est GFR (MDRD) Af Amer 10 L, Est GFR (MDRD) Non-Af 8 L, BUN/Creatinine Ratio 6.2 L, Glucose 102, Calcium 8.5, Phosphorus 7.6 H, Magnesium 2.1, Troponin I High Sens 3782 H* Cardiology Labs/Tests 04/09/23 23:29: WBC 9.8, RBC 3.71 L, Hgb 10.8 L, Hct 33.3 L, MCV 89.8, MCH 29.1, MCHC 32.4, Plt Count 261, MPV 9.5, Immature Gran % (Auto) 0.800, Neut % (Auto) 90.4 H, Lymph % (Auto) 4.4 L, [place] % (Auto) 3.9, Eos % (Auto) 0.3, Baso % (Auto) 0.2, Absolute Neuts (auto) 8.9 H, Nucleated RBC % 0.2, Sodium 136, Potassium 5.0, Chloride 98, Carbon Dioxide 32.0, Anion Gap 6, BUN 45 H, Creatinine 7.42 H*, Est GFR (MDRD) Af Amer 10 L, Est GFR (MDRD) Non-Af 8 L, BUN/Creatinine Ratio 6.1 L, Glucose 235 H, Calcium 9.1 04/10/23 04:57: WBC 7.9, RBC 3.33 L, Hgb 9.7 L, Hct 29.7 L, MCV 89.2, MCH 29.1, MCHC 32.7, Plt Count 208, MPV 8.9, Immature Gran % (Auto) 0.800, Neut % (Auto) 83.4 H, Lymph % (Auto) 9.1 L, [place] % (Auto) 6.3, Eos % (Auto) 0.3, Baso % (Auto) 0.1, Absolute Neuts (auto) 6.6, Nucleated RBC % 0, Sodium 138, Potassium 5.1, Chloride 100, Carbon Dioxide 30.0, Anion Gap 8, BUN 47 H, Creatinine 7.52 H*, Est GFR (MDRD) Af Amer 10 L, Est GFR (MDRD) Non-Af 8 L, BUN/Creatinine Ratio 6.2 L, Glucose 102, Calcium 8.5, Phosphorus 7.6 H, Magnesium 2.1 Rhythm: EKG: ECHO: Stress Test: Cardiac Cath: PCI: CT Surgery: Holter monitor: EPS: PPM: CXR: Chest CT Scan: Radiography Diagnostic Testing: Radiology Impression Chest X-Ray 04/09/23 23:45 IMPRESSION: Partial resolution of extensive bilateral infiltrates with residual airspace disease. Findings consistent with resolving pneumonia. Electronically Signed: Justyn Alfaro MD at 0:21 EST ,
[2023-04-10 15:40] LABS: Troponin-I HS 3874 pg/mL (3.0-78.0)
[2023-04-10] MEDS: Sertraline 50 MG Tablet PO (15:48)
[2023-04-10] MEDS: Clopidogrel Bisulfate 75 MG Tablet PO (15:48)
[2023-04-10] MEDS: Pantoprazole Sodium 20 MG Tablet PO (15:48)
[2023-04-10] MEDS: Aspirin 81 MG TAB.CHEW PO (15:49)
[2023-04-10] MEDS: Ezetimibe 10 MG Tablet PO (15:49)
[2023-04-10] MEDS: Losartan Potassium 50 MG Tablet PO (15:49)
[2023-04-10] MEDS: Folic Acid/Vitamin B Comp W-C 1 Capsule 1 CAP PO (15:49)
[2023-04-10] MEDS: amLODIPine 10 MG Tablet PO (15:53)
[2023-04-10] MEDS: Metoprolol(XL)Succ 200 MG Tablet PO ×2 (15:53→22:48)
--- NOTE | 2023-04-10 17:09 | CASEMGMT ---
CATHY URENA readmission note: Index admission: Pt admitted 03/31 w/COVID and resp failure and discharged home 04/02. He did not qualify for home o2 @ discharge and denied needing HHC or therapy. Pt lives w/his family and is independent @ baseline. Pt has ESRD and goes to [facility], chair time 0720. Current admission: Admitted 04/10 w/NSTEMI. CATHY CM to room. Pt sitting up in chair in room. Awake/alert/oriented. Pt states he has been doing well @ home since last admission. He states he has been taking his meds as prescribed. He has an upcoming appt w/[employer] @ PCP's office on 04/12 and a podiatry appt on 04/17. He states he has all needed supplies and medications. He denies having any concerns w/going home @ discharge. He was made aware to ask for CM if anything arises. He voices appreciation. Flores PENA RN, CM
[2023-04-10] MEDS: 0.9% Saline Lock 10 ML Syringe IV ×2 (20:06→22:47)
[2023-04-10] MEDS: traZODone 50 MG Tablet PO (21:34)
[2023-04-10] MEDS: Atorvastatin Calcium 80 MG Tablet PO (21:34)
[2023-04-10] MEDS: Gabapentin 100 MG Capsule 200 MG PO (21:34)
[2023-04-10] MEDS: Ondansetron 4 MG/2 ML Vial IV (22:47)
[2023-04-11] VITALS (19 sets, daily range): BP systolic 125–279; BP diastolic 82–119; PULSE 64–84; RESP 13–18; TEMP 35.7–36.4; O2SAT 92–98; BMI 46.1; BMI 45.1
[2023-04-11] MEDS: 0.9% Saline Lock 10 ML Syringe IV (03:19)
[2023-04-11 03:27] LABS: Absolute Neutrophil Count 6.8 X10^3/uL (2.0-7.7); Basophil# 0.03 X10^3/uL; Basophil% 0.3 % (0-1); Eosinophil# 0.11 X10^3/uL; Eosinophils% 1.2 % (0-5); Hematocrit 31.8 % (40-54); Hemoglobin 10.3 g/dL (13.0-16.5); Lymphocyte % 15.2 % (19-41); Mean Corp Hgb Conc 32.4 g/dL (32-36); Mean Corpuscular Hgb 29.2 pg (27.0-32.0); Mean Corpuscular Volume 90.1 fL (80-94); Mean Platelet Vol. 8.5 fl (6.2-12.0); Monocyte# 0.76 X10^3/uL; Monocyte% 8.3 % (0-10); NRBC Flagged by Analyzer 0.2 % (0-5); Neutrophil # 6.83 X10^3/uL (2.7-7.7); Neutrophil % 74.3 % (47-70); Platelet Count 224 K/mm3 (150-450); RBC Distribution Width CV 19.1 % (11.6-14.6); RBC Distribution Width SD 60.6 fl (35.1-43.9); Red Blood Count 3.53 M/mm3 (4.6-6.2); White Blood Count 9.2 K/mm3 (4.4-11.0)
[2023-04-11 04:13] LABS: Anion Gap 10 (5-15); BUN 72 mg/dL (7-18); BUN/Creat Ratio 7.7 RATIO (10-20); Calcium,Total 8.3 mg/dL (8.5-10.1); Chloride 99 mmol/L (98-107); Creatinine, Serum 9.36 mg/dL (0.70-1.30); EST Glomerular Filtration Rate 6 mL/min (>60); Est Glom Filt Rate - Afr Amer 8 mL/min (>60); Estimated Creatinine Clearance 9.23 ml/min; Glucose 154 mg/dL (74-106); Potassium 6.2 mmol/L (3.5-5.1); Sodium Level 137 mmol/L (136-145)
[2023-04-11] MEDS: Pantoprazole Sodium 20 MG Tablet PO (06:11)
[2023-04-11] MEDS: 0.9% Normal Saline 1,000 ML IV.SOLN. 1000 ML OPERA.SITE (08:18)
[2023-04-11] MEDS: PureFlow B 2K Dialysis Soln 1 BAG 6 BAG PF (08:18)
--- NOTE | 2023-04-11 11:08 | PCM.DC.SUM ---
Providers Date of Admission: 04/10/23 Date of Discharge: 04/11/23 Primary Care Physician: Dr. Norris Mcqueen MD Consultations 04/10/23 02:44 Consult: Cardiology Routine Consulting Provider: Александр Nevarez Reason for Consult: NSTEMI EMERGENT Consult: Yes MD Notified: Yes Date Notified: 04/10/23 Time Notified: 02:36 Method of Notification: ED Physician Initiated 04/10/23 11:25 Consult: Nephrology Routine Consulting Provider: Jade Lamar Reason for Consult: ESRD, on hemodialysis EMERGENT Consult: No MD Notified: Yes Date Notified: 04/10/23 Time Notified: 11:25 Method of Notification: Text Reason For Visit: NON-ST ELEVATION MD Diagnosis Discharge Diagnosis (1) Non-ST elevation MD (NSTEMI): Status: Acute Code(s): I21.4 - Non-ST elevation (NSTEMI) myocardial infarction (2) Atrial flutter: Status: Acute Code(s): I48.92 - Unspecified atrial flutter Qualifiers: Atrial flutter type: unspecified Qualified Code(s): I48.92 - Unspecified atrial flutter Plan #Nonstemi was admitted with a complaint of chest pain. hasnt had any more chest pain today. initial troponin was 41, then trended up to 909 and peaked at 3782. on SL nitroglycerin. PO aspirin 81mg daily cardiology consulted. Await rec;s had an echocardiogram on 01/22/2023 which showed a moderately dilated LV with moderate concentric lVH, generalied hypokinesis and inferior and posterior severe hypokinesis to akinesis; EF of 35% and stage II diastolic dysfuncion, with severely enlarged right atrium and moderately severe 3+ tricuspid valve insufficiency. RVSP is 42mmHg. he did have cardiac cath in December 2022 which showed 80% stenosis of the proximal obtuse marginal artery and 70% mid left circumflex artery stenosis, 60% stenosis of the proximal LAD and 50% stenosis of the proximal RCA. He had successful shockwave lithotripsy and drug-eluting stent placed with elevated left to left artery. on aspirin, plavix and statin. on carvedilol #VERÓNICA: on CPAP qhs #ESRD: on hemodialysis. Has AV [place] in [facility]. Nephrology consulted. #Hypertension: on carvedilol and losartan as well as nifedipine. #TYpe 2 diabetes mellitus: on lantus. ISS. Currently NPO, so lantus on hold. Accuchecks q6hrly #DVT prophylaxis; SCDs Medications at Discharge Home Medications aspirin 81 mg chewable tablet 81 mg PO DAILY HEART 08/10/17 omeprazole 20 mg capsule,delayed release 20 mg PO BIDAC gerd 08/08/18 blood-glucose meter (FreeStyle [place] Lite kit) #1 ea 12/22/19 lancets 28 gauge (FreeStyle Lancets) #100 ea 12/22/19 pen needle, diabetic 32 gauge x 5/32 (BD Ultra-Fine [place] Pen Needle) #400 ea 12/22/19 albuterol sulfate 90 mcg/actuation aerosol inhaler 2 puff inhalation Q6H PRN Shortness Of Breath Or Wheezing 07/26/21 atorvastatin 80 mg tablet 80 mg PO QHS CHOLESTEROL 07/26/21 ezetimibe 10 mg tablet 10 mg PO DAILY HIGH CHOLESTEROL 07/26/21 gabapentin 100 mg capsule 200 mg PO QHS NERVE PAIN 07/26/21 insulin detemir U-100 100 unit/mL (3 mL) subcutaneous pen (Levemir FlexTouch U-100 Insulin) 40 unit subcut QHS BLOODSUGAR 07/26/21 losartan 50 mg tablet 50 mg PO DAILY BLOOD PRESSURE 07/26/21 sucroferric oxyhydroxide 500 mg chewable tablet (Velphoro) 1,500 mg PO TID KIDNEY HEALTH 02/20/22 insulin aspart U-100 100 unit/mL (3 mL) subcutaneous pen (Novolog FlexPen U-100 Insulin aspart) 15 unit subcut .COMPLEX BLOOD SUGAR 01/22/23 lanthanum 1,000 mg chewable tablet 3,000 mg PO TIDCM UNKNOWN 01/22/23 quinine-vitamin E capsule 1 cap PO DAILY CRAMPS 01/22/23 sertraline 50 mg tablet 50 mg PO DAILY ANTI DEPRESSANT 01/22/23 trazodone 50 mg tablet 50 mg PO QHS SLEEP 01/22/23 vitamin B complex-vitamin C-folic acid 0.8 mg tablet (Leonela-Herbie) 1 tab PO DAILY VITAMIN 01/22/23 clopidogrel 75 mg tablet 75 mg PO DAILY HEART #90 tabs 02/13/23 doxycycline hyclate 100 mg tablet 100 mg PO BID #10 tabs 04/02/23 dulaglutide 0.75 mg/0.5 mL subcutaneous pen injector (Trulicity) mg subcut QWEEK diabetes 04/10/23 amlodipine 10 mg tablet 10 mg PO DAILY #30 tabs 04/11/23 metoprolol succinate 200 mg tablet,extended release 24 hr 200 mg PO BID #60 tabs 04/11/23 Hospital Course Operations None Procedures None Summary of Care Provided Minutes Spent on Discharge: 45 Hospital Course: Patient is a 52-year-old male with a past medical history as outlined was admitted through the ED on 04/10/2023 with a complaint of chest pain which started about 45 minutes prior to admission. He had a history of CAD and had stents placed in December 2022 to the circumflex artery. He was also on dialysis for ESRD. On admission he was in A-fib with RVR. He received Cardizem. He was admitted and managed for non-STEMI. Cardiology was consulted. He had had a 2D echo in 01/22/2023 which showed EF of 35% with stage II diastolic dysfunction and severely enlarged right atrium and moderately severe 3+ tricuspid valve insufficiency as well as moderately dilated left ventricle and RVSP of 35 mmHg. He was continued on his aspirin and Plavix as well as statin and carvedilol. Troponins were initially 41 and peaked at 3782. Cardiology reviewed patient and felt that his troponin elevation was likely due to troponin leak from the A-fib with RVR. Chest pain had also resolved. His nifedipine was discontinued and he was placed on amlodipine. His carvedilol was also discontinued and he was placed on metoprolol 200 mg twice daily. Patient hospital course was complicated by mild hyperkalemia which resolved with dialysis. He did have dialysis on day of discharge. He remained stable and was discharged home on 04/11/2023. He is to follow-up with his primary care doctor and cardiology as well as nephrology within 1 to 2 weeks. Patient seen and examined prior to discharge. He had no complaints and had an uneventful night. Review of systems otherwise negative. Labs and vitals reviewed. Home medication reviewed and reconciled. Physical Exam Const alert, oriented x3 and no apparent distress Constitutional Narrative: obese General Appearance: cooperative, comfortable, well kempt and well developed HEENT normocephalic, head/scalp atraumatic, hearing grossly normal bilaterally, moist oral mucous membranes and oropharynx normal Mouth: oral and palatal mucosa normal Eyes PERRL and EOMs intact bilaterally Neck no lymphadenopathy, supple and no JVD Lymph Lymphatic: no lymphadenopathy noted and no lymphedema noted Resp normal respiratory effort, normal air movement and clear to auscultation bilaterally Cardio regular rate, regular rhythm, S1 normal heart sound, S2 normal heart sound and no murmurs GI normal to inspection, nondistended, normoactive bowel sounds, soft to palpation and non-tender Extremity normal to inspection, full ROM, normal capillary refill, no clubbing, cyanosis or edema and no calf tenderness Extremity Narrative: AV fistula in LUE General Extremity: no tenderness to palpation of joints or extremities Skin no rashes or lesions noted General Skin Exam: no breakdown Neuro oriented x3, CN's II-XII intact bilaterally, moves all extremities, no focal motor deficits, no sensory deficits noted and deep tendon reflexes 2+ bilaterally Motor Exam: strength 5/5 throughout and general weakness Psych thought process normal, cooperative and affect normal Appearance: appropriate Weight / BMI Weight Weight: 311 lb 11.738 oz Body Mass Index (BMI) 46.1 ABG / Lab / Microbiology Data 04/11/23 03:20 04/11/23 03:20 Laboratory: Laboratory Results - last 24 hr 04/10/23 14:39: Troponin I High Sens 3874 H* 04/11/23 03:20: WBC 9.2, RBC 3.53 L, Hgb 10.3 L, Hct 31.8 L, MCV 90.1, MCH 29.2, MCHC 32.4, RDW Std Deviation 60.6 H, RDW Coeff of Kyle 19.1 H, Plt Count 224, MPV 8.5, Immature Gran % (Auto) 0.700, Neut % (Auto) 74.3 H, Lymph % (Auto) 15.2 L, [place] % (Auto) 8.3, Eos % (Auto) 1.2, Baso % (Auto) 0.3, Absolute Neuts (auto) 6.8, Absolute Lymphs (auto) 1.40, Nucleated RBC % 0.2, Sodium 137, Potassium 6.2 H*, Chloride 99, Carbon Dioxide 28.0, Anion Gap 10, BUN 72 H, Creatinine 9.36 H*, Estim Creat Clear Calc 9.23, Est GFR (MDRD) Af Amer 8 L, Est GFR (MDRD) Non-Af 6 L, BUN/Creatinine Ratio 7.7 L, Glucose 154 H, Calcium 8.3 L D/C Instructions Discharge Diet: Low fat / Low cholesterol Weight Bearing Status: Weight bearing as tolerated Call your doctor if you observe: Fever of 101 or Higher, Shortness of breath, Dizziness, Swelling in the ankles, Chest pain and Increased palpitations (irregular heartbeat) Meaningful Use Info Meaningful Use Diagnoses (Choose all that apply): AMI AMI/Post PCI/Angioplasty Aspirin given w/in 24hrs of arrival?: Yes ASA at discharge?: Yes Antiplatelet Therapy at Discharge:: Yes Statins at discharge?: Yes Joseph/ARB at discharge?: No Reason Joseph/ARB not ordered:: Worsening renal dysfunctn Beta Florin at discharge?: Yes Done w/ Acute MD measure.: Yes Documented LVEF (%): 35 Discharge Plan Admission Admit Date/Time: 04/10/23 02:33 Primary Reason for Your Visit: nonstemi Attending Provider: Gabriela Jason Primary Care Provider: Norris Mcqueen Consulting Providers: Александр Nevarez; Ender Zhong; Jade Lamar Instructions Patient Instructions: Heart Attack Dc Discharge Orders/Prescriptions Prescriptions: New metoprolol succinate 200 mg Tablet Extended Release 24 Hr 200 mg PO BID Qty: 60 2RF amlodipine 10 mg Tablet 10 mg PO DAILY Qty: 30 2RF Continued (DME) blood-glucose meter [FreeStyle [place] Lite] Kit See Rx Instructions .ROUTE .MEDSUPPLY Qty: 1 0RF Rx Instructions: As directed (DME) pen needle, diabetic [BD Ultra-Fine [place] Pen Needle] 32 gauge x 5/32 needle See Rx Instructions .ROUTE .MEDSUPPLY Qty: 400 1RF Rx Instructions: 4 times daily (DME) lancets [FreeStyle Lancets] 28 gauge misc See Rx Instructions .ROUTE .MEDSUPPLY Qty: 100 5RF Rx Instructions: As directed losartan 50 mg tablet 50 mg PO DAILY atorvastatin 80 mg tablet 80 mg PO QHS ezetimibe 10 mg tablet 10 mg PO DAILY gabapentin 100 mg capsule 200 mg PO QHS albuterol sulfate 90 mcg/actuation HFA aerosol inhaler 2 puff inhalation Q6H PRN (Reason: Shortness Of Breath Or Wheezing) Levemir FlexTouch U100 Insulin 100 unit/mL (3 mL) insulin pen 40 unit subcut QHS clopidogrel 75 mg tablet 75 mg PO DAILY Qty: 90 3RF aspirin 81 MG tablet,chewable 81 mg PO DAILY Patient Comments: ANTIPLATELET omeprazole 20 MG capsule,delayed release(DR/EC) 20 mg PO BIDAC Velphoro 500 mg tablet,chewable 1,500 mg PO TID Patient Comments: CHEW & SWALLOW 3 TABLETS THREE TIMES A DAY WITH MEALS Trulicity 0.75 mg/0.5 mL pen injector SUBCUT QWEEK Patient Comments: Inject 0.75 mg subcutaneously one time a week. Inject dose once per week. Discard Pen After Rx Instructions: pt unsure of dosage amount Leonela-Herbie 0.8 mg tablet 1 tab PO DAILY trazodone 50 mg tablet 50 mg PO QHS sertraline 50 mg tablet 50 mg PO DAILY lanthanum 1,000 mg tablet,chewable 3,000 mg PO TIDCM quinine-vitamin E Capsule 1 cap PO DAILY insulin aspart U-100 [Novolog FlexPen U-100 Insulin] 100 unit/mL (3 mL) insulin pen 15 unit SC .COMPLEX Rx Instructions: 15 units subcutaneously TID CM doxycycline hyclate 100 mg tablet 100 mg PO BID Qty: 10 0RF Discontinued carvedilol 25 mg tablet 25 mg PO BID Patient Comments: HEART/BLOOD PRESSURE nifedipine 60 mg tablet extended release 24hr 60 mg PO DAILY dexamethasone 6 mg tablet 6 mg PO DAILY Qty: 7 0RF Referrals / Follow Up: Александр Nevarez MD [Med Staff - Active Staff] - Within 2 Weeks Norris Mcqueen MD [Primary Care Provider] - Within 2 Weeks Jade Lamar MD [Med Staff - Consulting] - Within 1 Week Disposition Disposition (needs filled in before D/C Order can be placed): Home, Self Care Charges/Coding Visit Charges Inpatient E&M: 78013 Disch Hosp >30min
[2023-04-11] MEDS: Folic Acid/Vitamin B Comp W-C 1 Capsule 1 CAP PO (11:40)
[2023-04-11] MEDS: Aspirin 81 MG TAB.CHEW PO (11:40)
[2023-04-11] MEDS: Losartan Potassium 50 MG Tablet PO (11:40)
[2023-04-11] MEDS: Ezetimibe 10 MG Tablet PO (11:41)
[2023-04-11] MEDS: Clopidogrel Bisulfate 75 MG Tablet PO (11:41)
[2023-04-11] MEDS: Sertraline 50 MG Tablet PO (11:41)
[2023-04-11] MEDS: amLODIPine 10 MG Tablet PO (11:44)
[2023-04-11] MEDS: Metoprolol(XL)Succ 200 MG Tablet PO (11:44)
--- NOTE | 2023-04-11 12:16 | CASEMGMT ---
CATHY URENA NOTE: Call received from Anders MORGAN CM who states she is available for any needs pt may have. PH: [phone]. Flores PENA RN CM
== END 2023-04-11 13:45 | disposition home or self-care (01) | DRG 201 ==
LOC: ED 04-10 02:24 → ICU 04-10 02:50
PROVIDERS: Specialist; Admitting Provider Family Medicine; Emergency Provider Emergency Medicine; PCP Family Medicine; Referring Provider Family Medicine; Visit Provider Student in an Organized Health Care Education/Training Program
DX: I48.91 Unspecified atrial fibrillation (principal); I21.A1 Myocardial infarction type 2; I13.2 Hypertensive heart and chronic kidney disease with heart failure and with stage 5 chronic kidney disease, or end stage renal disease; N18.6 End stage renal disease; I42.8 Other cardiomyopathies; E11.42 Type 2 diabetes mellitus with diabetic polyneuropathy; J44.9 Chronic obstructive pulmonary disease, unspecified; E66.01 Morbid (severe) obesity due to excess calories; I48.92 Unspecified atrial flutter; I50.42 Chronic combined systolic (congestive) and diastolic (congestive) heart failure; E11.22 Type 2 diabetes mellitus with diabetic chronic kidney disease; Z79.4 Long term (current) use of insulin; Z68.42 Body mass index [BMI] 45.0-49.9, adult; Z99.2 Dependence on renal dialysis; I07.1 Rheumatic tricuspid insufficiency; G47.33 Obstructive sleep apnea (adult) (pediatric); E78.00 Pure hypercholesterolemia, unspecified; I25.10 Atherosclerotic heart disease of native coronary artery without angina pectoris; E87.5 Hyperkalemia; I25.2 Old myocardial infarction; I47.10 Supraventricular tachycardia, unspecified; Z79.02 Long term (current) use of antithrombotics/antiplatelets; Z79.82 Long term (current) use of aspirin; Z95.5 Presence of coronary angioplasty implant and graft; Z79.899 Other long term (current) drug therapy; Z86.16 Personal history of COVID-19
CPT/HCPCS: 36415; 71045; 80048; 83735; 84100; 84484; 85025; 90937; 93005; 99285; J7030; A4216; G0257; J2405

== ENCOUNTER 2023-05-04 21:38 | Observation (INO) | payer OTHER, MEDICAID, SELFPAY ==
[2023-05-04] VITALS (13 sets, daily range): BP systolic 134–186; BP diastolic 75–113; PULSE 92–153; RESP 17–22; TEMP 36.6; O2SAT 89–96; BMI 44.1
[2023-05-04] MEDS: Metoprolol Tartrate 5 MG/5 ML Vial IV ×3 (21:54→22:49)
--- NOTE | 2023-05-04 22:00 | RAD_ITS ---
EXAM: XR CHEST, 2 VIEWS CLINICAL INDICATION: chest pain TECHNIQUE: Frontal and lateral views of the chest. COMPARISON: April 09, 2023. FINDINGS: LUNGS AND PLEURAL SPACES: Similar thin band of atelectasis or scarring in the left lateral mid-lower lung field. No pneumothorax. No effusion. Question of slight haziness in the central lungs but similar to most recent prior exam. HEART: Stable upper limits of normal heart size. MEDIASTINUM: Central airways and mediastinal contour are unremarkable. BONES/JOINTS: Unremarkable. No acute fracture. SOFT TISSUES: Unremarkable. RAD/Chest PA and Lateral IMPRESSION: Stable chest. No new or increasing infiltrates. Electronically Signed: Jennifer Durant MD at 22:54 EST ,
[2023-05-04 22:01] LABS: Absolute Lymphocyte Count 1.09 X10^3/uL (0.83-4.51); Absolute Neutrophil Count 5.1 X10^3/uL (2.0-7.7); Basophil# 0.05 X10^3/uL; Basophil% 0.7 % (0-1); Eosinophil# 0.08 X10^3/uL; Eosinophils% 1.1 % (0-5); Hematocrit 35.3 % (40-54); Hemoglobin 11.4 g/dL (13.0-16.5); Lymphocyte # 1.09 X10^3/ul (0.83-4.51); Lymphocyte % 15.4 % (19-41); Mean Corp Hgb Conc 32.3 g/dL (32-36); Mean Corpuscular Hgb 28.5 pg (27.0-32.0); Mean Corpuscular Volume 88.3 fL (80-94); Mean Platelet Vol. 9.3 fl (6.2-12.0); Monocyte# 0.74 X10^3/uL; Monocyte% 10.4 % (0-10); NRBC Flagged by Analyzer 0 % (0-5); Neutrophil # 5.09 X10^3/uL (2.7-7.7); Neutrophil % 71.7 % (47-70); Platelet Count 379 K/mm3 (150-450); RBC Distribution Width CV 17.1 % (11.6-14.6); RBC Distribution Width SD 54.6 fl (35.1-43.9); White Blood Count 7.1 K/mm3 (4.4-11.0)
[2023-05-04 22:18] LABS: AST(SGOT) 20 U/L (15-37); Alanine Aminotransfer ALT/SGPT 35 U/L (16-61); Albumin, Serum 3.4 g/dL (3.2-5.0); Alkaline Phosphatase 126 U/L (45-117); Bilirubin, Direct 0.11 mg/dL (0.00-0.30); Globulin 3.9 g/dL (2.2-4.2); Protein, Total 7.3 g/dL (6.4-8.2)
[2023-05-04 22:25] LABS: Albumin, Serum 3.4 g/dL (3.2-5.0); BUN 26 mg/dL (7-18); BUN/Creat Ratio 4.2 RATIO (10-20); Calcium,Total 9.5 mg/dL (8.5-10.1); Chloride 98 mmol/L (98-107); Creatinine, Serum 6.24 mg/dL (0.70-1.30); EST Glomerular Filtration Rate 10 mL/min (>60); Est Glom Filt Rate - Afr Amer 12 mL/min (>60); Estimated Creatinine Clearance 13.85 ml/min; Glucose 130 mg/dL (74-106); Magnesium 2.2 mg/dL (1.6-2.6); Phosphorus 5.9 mg/dL (2.5-4.9); Potassium 4.4 mmol/L (3.5-5.1); Sodium Level 138 mmol/L (136-145); Troponin-I HS (w/2H Reflex) 48 pg/mL (3.0-78.0)
[2023-05-04] MEDS: Metoprolol Tartrate 25 MG Tablet PO (23:22)
[2023-05-05] VITALS (25 sets, daily range): BP systolic 104–149; BP diastolic 73–101; PULSE 81–97; RESP 13–24; TEMP 36.2–37.4; O2SAT 88–100; BMI 43.8
[2023-05-05] LABS: Reflex Troponin-HS? (from REC) Y
--- NOTE | 2023-05-05 00:07 | ED.VIS.CHEST ---
HPI History of Present Illness Chief Complaint: Chest Pain Informant: patient Narrative Narrative: Patient is a 52-year-old male with history of end-stage renal disease on hemodialysis (last hemodialysis was today), send dependent diabetes mellitus, atrial flutter, cardiomyopathy, NSTEMI and hypertension presenting with chest discomfort and racing heartbeat. Patient symptoms started about 20 minutes prior to arrival. He developed shortness of breath, sweating, chest discomfort and pain rating down his left arm. States it feels like the last time his heart was going fast. Notes he had a similar episode a couple days ago that lasted for about an hour but then self resolved so he did not come in. Has been having more episodes like this is not sure why. States has been compliant with his medications. Is on Plavix but does not appear to be on any novel oral anticoagulation. Other complaints or concerns at this time. Feels that he is at his dry weight. Notes he has recently had a diarrheal illness. Prior Similar Symptoms: Yes and - (With atrial flutter) [facility] Medical History Anemia of chronic renal failure, stage 4 (severe) Arteriosclerotic cardiovascular disease Atrial flutter Cardiology follow-up encounter Chest pain Chronic kidney disease with end stage renal failure on dialysis COPD (chronic obstructive pulmonary disease) CPAP (continuous positive airway pressure) dependence Degenerative disc disease, cervical Demand ischemia Diabetes Diabetes mellitus, type II, insulin dependent Diabetic polyneuropathy (04/2017) Dialysis patient Dyslipidemia Elevated troponin Elevated troponin ESRD on dialysis Essential (primary) hypertension Fistula GERD (gastroesophageal reflux disease) High cholesterol History of CHF (congestive heart failure) History of echocardiogram History of stress test Hypertension Hypotension Insulin dependent diabetes mellitus Leg cramps Morbid obesity Myocardial infarct Non-ischemic cardiomyopathy Non-smoker Non-ST elevation CA (NSTEMI) VERÓNICA (obstructive sleep apnea) Pneumonia due to COVID-19 virus Problem with dialysis access Sleep apnea Syncope (07/2018) Systolic and diastolic CHF, acute Wears glasses Wears partial dentures Home Medications aspirin 81 mg chewable tablet 81 mg PO DAILY HEART 08/10/17 [History Last Taken 01/22/23] omeprazole 20 mg capsule,delayed release 20 mg PO BIDAC gerd 08/08/18 [History Last Taken 01/22/23] blood-glucose meter (FreeStyle [place] Lite kit) #1 ea 12/22/19 [Rx Last Taken Unknown] lancets 28 gauge (FreeStyle Lancets) #100 ea 12/22/19 [Rx Last Taken Unknown] pen needle, diabetic 32 gauge x 5/32 (BD Ultra-Fine [place] Pen Needle) #400 ea 12/22/19 [Rx Last Taken Unknown] albuterol sulfate 90 mcg/actuation aerosol inhaler 2 puff inhalation Q6H PRN Shortness Of Breath Or Wheezing 07/26/21 [History Last Taken 01/21/23] atorvastatin 80 mg tablet 80 mg PO QHS CHOLESTEROL 07/26/21 [History Last Taken 01/21/23] ezetimibe 10 mg tablet 10 mg PO DAILY HIGH CHOLESTEROL 07/26/21 [History Last Taken 01/21/23] insulin detemir U-100 100 unit/mL (3 mL) subcutaneous pen (Levemir FlexTouch U-100 Insulin) 40 unit subcut QHS BLOODSUGAR 07/26/21 [History Last Taken 01/21/23] losartan 50 mg tablet 50 mg PO DAILY BLOOD PRESSURE 07/26/21 [History Last Taken 01/21/23] sucroferric oxyhydroxide 500 mg chewable tablet (Velphoro) 1,500 mg PO TID KIDNEY [facility] 02/20/22 [History Last Taken 01/21/23] insulin aspart U-100 100 unit/mL (3 mL) subcutaneous pen (Novolog FlexPen U-100 Insulin aspart) 15 unit subcut .COMPLEX BLOOD SUGAR 01/22/23 [History Last Taken 01/21/23] lanthanum 1,000 mg chewable tablet 3,000 mg PO TIDCM UNKNOWN 01/22/23 [History Last Taken 01/21/23] quinine-vitamin E capsule 1 cap PO DAILY CRAMPS 01/22/23 [History Last Taken 01/21/23] sertraline 50 mg tablet 50 mg PO DAILY ANTI DEPRESSANT 01/22/23 [History Last Taken 01/21/23] trazodone 50 mg tablet 50 mg PO QHS SLEEP 01/22/23 [History Last Taken 01/21/23] vitamin B complex-vitamin C-folic acid 0.8 mg tablet (Leonela-Herbie) 1 tab PO DAILY VITAMIN 01/22/23 [History Last Taken 01/21/23] clopidogrel 75 mg tablet 75 mg PO DAILY HEART #90 tabs 02/13/23 [Rx Last Taken Unknown] dulaglutide 0.75 mg/0.5 mL subcutaneous pen injector (Trulicity) 0.75 mg subcut QWEEK diabetes 04/10/23 [History Last Taken Unknown] amlodipine 10 mg tablet 10 mg PO DAILY #30 tabs 04/11/23 [Rx Last Taken Unknown] metoprolol succinate 200 mg tablet,extended release 24 hr 200 mg PO BID #60 tabs 04/11/23 [Rx Last Taken Unknown] carvedilol 25 mg tablet 25 mg PO Q12H 05/04/23 [History Last Taken Unknown] cinacalcet 30 mg tablet 30 mg PO DAILY 05/04/23 [History Last Taken Unknown] cinacalcet 60 mg tablet 120 mg PO DAILY 05/04/23 [History Last Taken Unknown] furosemide 40 mg tablet 40 mg PO DAILY 05/04/23 [History Last Taken Unknown] gabapentin 300 mg capsule 300 mg PO QHS 05/04/23 [History Last Taken Unknown] nitroglycerin 0.4 mg sublingual tablet 0.4 mg buccal Q5M PRN chest pain 05/04/23 [History Last Taken Unknown] Allergy/AdvReac Type Severity Reaction Status Date / Time liraglutide [From Victoza] Allergy Unknown unknown Verified 05/04/23 21:39 NSAIDS (Non-Steroidal AdvReac Severe Renal Verified 05/04/23 21:39 Anti-Inflamma failure BLANCA Inhibitors AdvReac Intermediate cough Verified 05/04/23 21:39 Family History Mother Hypertension Grandmother Aneurysm Other NSTEMI, initial episode of care Stented coronary artery Surgical History History of angioplasty of peripheral vessel (07/2021) History of coronary artery stent placement Hx of cardiac catheterization (~01/23/23) Presence of surgically created arteriovenous shunt for hemodialysis (07/2017) Stented coronary artery (01/23/23) Social History household members: spouse housing: house Smoking Status: Never smoker alcohol intake: never substance use type: does not use ROS ROS ED Constitutional Constitutional ED: Reports sweats; Denies chills or fever(s) Eyes Eyes: Denies change in vision ENT ENT ED: Denies sore throat Cardiovascular Cardiovascular: Reports as per HPI, chest pain, palpitations and racing heartbeat Respiratory/Chest Respiratory/Chest: Reports dyspnea; Denies sputum Gastrointestinal Gastrointestinal: Reports diarrhea; Denies abdominal pain or vomiting Musculoskeletal Musculoskeletal: Denies arthralgias or myalgias Integumentary Denies rash Neurologic Neurologic: Denies headache(s) EXAM Physical Exam Const Vital Signs: 05/04/23 21:39 05/04/23 21:47 05/04/23 21:48 Temperature 98 F Temperature Source Temporal Pulse Rate 153 H Respiratory Rate 20 H Respiratory Effort Short of Breath Blood Pressure 186/110 H Blood Pressure Mean 135 Pulse Ox 92 Oxygen Delivery Method Room Air 05/04/23 22:18 05/04/23 22:46 05/04/23 22:48 Temperature Temperature Source Pulse Rate 105 H 101 H 100 Respiratory Rate 18 21 H 18 Respiratory Effort Blood Pressure 134/113 H 157/92 H Blood Pressure Mean 120 111 Pulse Ox 92 92 93 Oxygen Delivery Method Room Air Room Air 05/04/23 22:50 05/04/23 23:00 05/04/23 23:10 Temperature Temperature Source Pulse Rate 97 99 98 Respiratory Rate 17 18 20 H Respiratory Effort Blood Pressure 147/95 H Blood Pressure Mean 110 Pulse Ox 90 89 94 Oxygen Delivery Method 05/04/23 23:15 05/04/23 23:20 05/04/23 23:30 Temperature Temperature Source Pulse Rate 97 98 93 Respiratory Rate 19 H 22 H 17 Respiratory Effort Blood Pressure 146/76 H 135/75 H Blood Pressure Mean 95 92 Pulse Ox 94 91 Oxygen Delivery Method Room Air 05/04/23 23:40 05/04/23 23:45 05/04/23 23:50 Temperature Temperature Source Pulse Rate 92 93 97 Respiratory Rate 22 H 17 22 H Respiratory Effort Blood Pressure 151/90 H Blood Pressure Mean 109 Pulse Ox 96 92 94 Oxygen Delivery Method 05/05/23 00:00 05/05/23 00:10 05/05/23 00:15 Temperature Temperature Source Pulse Rate 95 93 97 Respiratory Rate 19 H 17 24 H Respiratory Effort Blood Pressure 145/96 H 137/101 H Blood Pressure Mean 110 111 Pulse Ox 90 92 Oxygen Delivery Method Room Air 05/05/23 00:20 05/05/23 00:30 05/05/23 00:40 Temperature Temperature Source Pulse Rate 93 93 94 Respiratory Rate 19 H 21 H 22 H Respiratory Effort Blood Pressure 143/92 H Blood Pressure Mean 107 Pulse Ox 90 94 92 Oxygen Delivery Method Room Air 05/05/23 00:45 05/05/23 00:50 Temperature Temperature Source Pulse Rate 94 93 Respiratory Rate 20 H 14 Respiratory Effort Blood Pressure 144/88 H Blood Pressure Mean 104 Pulse Ox 94 Oxygen Delivery Method Positive well nourished, well developed and obese General Appearance ED: well developed and NAD Nutritional Appearance: obese HEENT Reports moist mucous membranes normocephalic and atraumatic Eyes PERRL Neck supple Chest Wall inspection of chest normal and palpation of chest normal Resp normal respiratory effort and clear to auscultation bilaterally Cardio regular rhythm and no murmurs Rate: tachycardic GI normal to inspection, nondistended, normoactive bowel sounds and soft to palpation Extremity normal to inspection Extremity Narrative: AV fistula noted in the left forearm General Extremety ED: Negative for edema General Extremity: Negative for edema Neuro oriented x3 Sensorium / Orientation: awake and alert Motor Exam: Negative for general weakness Psych mental status grossly normal Skin no rashes or lesions noted MDM MDM MDM Narrative Medical decision making narrative: Presents with chest discomfort, heart racing and sweating. On telemetry he is noted to be in a tacky arrhythmia. Suspect he is in atrial flutter with RVR given his history and his EKG. patient is given a total of 15 mg IV labetalol via 5 mg aliquots with improvement of his tach arrhythmia. EKG now shows sinus tachycardia. His symptoms have resolved. Chart review shows that patient was admitted on 04/10 through 04/11 for similar presentation. Had presented with atrial flutter with RVR. His repeat high-sensitivity troponin was consistent with NSTEMI which is why he was admitted. He was evaluated by cardiology no medication changes. He was switched to 100 mg twice daily and is followed up outpatient. It appears that patient was not started on anticoagulation at that time but not entirely clear why. Chart review also shows that patient had a cardiac catheterization on 01/23/2023 which showed multivessel disease but he received a stent of the circumflex and the OM 2. Patient's initial workup is largely remarkable. Has elevated creatinine consistent with end-stage renal disease however potassium is normal and does not meet criteria for emergent dialysis. Initial high-sensitivity troponin is 48. Repeat is now 153. It is a significant rise. Patient states be symptom free. An additional 25 mg of oral metoprolol to keep rate control. Case discussed with Dr. Pickens given the patient's complex cardiac history and uptrending troponin. He recommends 23-hour observation for troponin monitoring. Questions if patient has ever been put on amiodarone. Also suggest that patient might benefit ultimately from electrophysiology evaluation. Discussed with patient observation hospital for 23 hours. He is agreeable. Case is discussed with admitting physician, Dr. Yepez. He accepts the patient to his service. Recommend 25 mcg digoxin load if patient goes back into atrial flutter. History & Record Review Additional record(s) reviewed:: Prior inpatient record Lab Data Attestation: I reviewed the patient's lab results. Labs: Laboratory Results - last 24 hr 05/04/23 05/04/23 05/04/23 21:52 21:52 23:53 WBC 7.1 RBC 4.00 L Hgb 11.4 L Hct 35.3 L MCV 88.3 MCH 28.5 MCHC 32.3 RDW Std Deviation 54.6 H RDW Coeff of Kyle 17.1 H Plt Count 379 MPV 9.3 Immature Gran % (Auto) 0.700 Neut % (Auto) 71.7 H Lymph % (Auto) 15.4 L [place] % (Auto) 10.4 H Eos % (Auto) 1.1 Baso % (Auto) 0.7 Absolute Neuts (auto) 5.1 Absolute Lymphs (auto) 1.09 Nucleated RBC % 0 Sodium 138 Potassium 4.4 Chloride 98 Carbon Dioxide 33.0 H BUN 26 H Creatinine 6.24 H Estim Creat Clear Calc 13.85 Est GFR (MDRD) Af Amer 12 L Est GFR (MDRD) Non-Af 10 L BUN/Creatinine Ratio 4.2 L Glucose 130 H Calcium 9.5 Phosphorus 5.9 H Magnesium 2.2 Total Bilirubin 0.30 Direct Bilirubin 0.11 AST 20 ALT 35 Alkaline Phosphatase 126 H Troponin I High Sens 48 153 H* Total Protein 7.3 Albumin 3.4 3.4 Globulin 3.9 Radiography Chest X-Ray - ED: 1 View, Read by ED Physician, Read by Radiologist and No Acute Disease Diagnostic Testing: Clinical Impression(s) from Imaging Studies Chest X-Ray 05/04/23 22:00 IMPRESSION: Stable chest. No new or increasing infiltrates. Electronically Signed: Jennifer Durant MD at 22:54 EST , Rhythm Strip Rhythm Strip: A-fib Rate: 153 Ectopy: None EKG Initial EKG: Attestation: I personally reviewed and interpreted this EKG as follows: Interpretation: Atrial Flutter Comments: Atrial flutter at a rate of 153 beats per minutes with 2-1 conduction Left axis deviation LVH with repolarization abnormalities prior EKG patient is now in atrial flutter with rapid ventricular response Prior: Changed Follow-up EKG: Attestation: I personally reviewed and interpreted this EKG as follows: Interpretation: Sinus Tachycardia Comments: Sinus tachycardia rate 101 bpm Left axis deviation Minimal voltage criteria for LVH Nonspecific T wave changes Compared to prior EKG on 04/10/2023 no significant change Per EKG today patient is no longer in atrial flutter with rapid ventricular response Management Discussion w/another healthcare provider: Hospitalist and Monitor Technician (Cardiology ) Discharge Plan Triage Chief Complaint: Chest Pain ED Provider: Sintia Estes Dx/Rx/DC Orders Clinical Impression: Elevated troponin, Chest pain, Cardiomyopathy, Atrial flutter with rapid ventricular response Prescriptions: No Action (DME) blood-glucose meter [FreeStyle [place] Lite] Kit See Rx Instructions .ROUTE .MEDSUPPLY Qty: 1 0RF Rx Instructions: As directed (DME) pen needle, diabetic [BD Ultra-Fine [place] Pen Needle] 32 gauge x 5/32 needle See Rx Instructions .ROUTE .MEDSUPPLY Qty: 400 1RF Rx Instructions: 4 times daily (DME) lancets [FreeStyle Lancets] 28 gauge misc See Rx Instructions .ROUTE .MEDSUPPLY Qty: 100 5RF Rx Instructions: As directed losartan 50 mg tablet 50 mg PO DAILY atorvastatin 80 mg tablet 80 mg PO QHS ezetimibe 10 mg tablet 10 mg PO DAILY albuterol sulfate 90 mcg/actuation HFA aerosol inhaler 2 puff inhalation Q6H PRN (Reason: Shortness Of Breath Or Wheezing) Levemir FlexTouch U100 Insulin 100 unit/mL (3 mL) insulin pen 40 unit subcut QHS clopidogrel 75 mg tablet 75 mg PO DAILY Qty: 90 3RF aspirin 81 MG tablet,chewable 81 mg PO DAILY Patient Comments: ANTIPLATELET omeprazole 20 MG capsule,delayed release(DR/EC) 20 mg PO BIDAC Velphoro 500 mg tablet,chewable 1,500 mg PO TID Patient Comments: CHEW & SWALLOW 3 TABLETS THREE TIMES A DAY WITH MEALS Trulicity 0.75 mg/0.5 mL pen injector 0.75 mg SUBCUT QWEEK Patient Comments: Inject 0.75 mg subcutaneously one time a week. Inject dose once per week. Discard Pen After Rx Instructions: pt unsure of dosage amount metoprolol succinate 200 mg Tablet Extended Release 24 Hr 200 mg PO BID Qty: 60 2RF amlodipine 10 mg Tablet 10 mg PO DAILY Qty: 30 2RF Leonela-Herbie 0.8 mg tablet 1 tab PO DAILY trazodone 50 mg tablet 50 mg PO QHS sertraline 50 mg tablet 50 mg PO DAILY lanthanum 1,000 mg tablet,chewable 3,000 mg PO TIDCM quinine-vitamin E Capsule 1 cap PO DAILY insulin aspart U-100 [Novolog FlexPen U-100 Insulin] 100 unit/mL (3 mL) insulin pen 15 unit SC .COMPLEX Rx Instructions: 15 units subcutaneously TID CM carvedilol 25 mg tablet 25 mg PO Q12H Patient Comments: take 1 tablet by mouth twice a day WITH A MEAL cinacalcet 30 mg tablet 30 mg PO DAILY Patient Comments: TAKE 1 TABLET BY MOUTH DAILY WITH 60 MG TABLETS FOR TOTAL DAILY DOSE OF 150 MG cinacalcet 60 mg tablet 120 mg PO DAILY Patient Comments: TAKE 2 TABLETS BY MOUTH DAILY furosemide 40 mg tablet 40 mg PO DAILY Patient Comments: TAKE 1 TABLET BY MOUTH EVERY DAY gabapentin 300 mg capsule 300 mg PO QHS Patient Comments: Take 1 capsule by mouth daily at bedtime nitroglycerin 0.4 mg tablet, sublingual 0.4 mg buccal Q5M PRN (Reason: chest pain) Patient Comments: Dissolve 1 tablet under the tongue every 5 minutes as needed for chest pain. Primary Care Provider: Norris Mcqueen Referrals: Norris Mcqueen MD [Primary Care Provider] -
[2023-05-05 00:32] LABS: Troponin-I HS 153 pg/mL (3.0-78.0)
--- NOTE | 2023-05-05 01:05 | PCM.HP.STD ---
[facility] - General General Date of Admission: 05/05/23 Date of Service: 05/05/23 Chief Complaint: Chest pain palpitations [facility] Narrative LISA YUNG, is a 52 M with a past medical history of essential hypertension, hyperlipidemia, morbid obesity; with BMI of 43.9 present on admission, end-stage renal disease; on hemodialysis with AV fistula in left upper extremity coronary artery disease; coronary artery disease; status post non-ST elevation SC, history of generalized hypokinesis and inferior and posterior severe hypokinesis to akinesis with left ventricular ejection fraction of 35% stage II diastolic dysfunction (03/2023), obstructive sleep apnea; on nocturnal CPAP, diabetes mellitus type 2; of unknown control, recurrent paroxysmal atrial flutter; with rapid ventricular response GERD and OA who presents to [facility] ER complaining of chest pain. Mr. Yung reports his symptoms began ~20 minutes prior to arrival with the abrupt onset of chest discomfort and palpitations with a sensation of heart racing. He states he had a similar episode like this last month that happened for about an hour. He also admits to a recent diarrheal illness but he denies chest pain, fever, chills, nausea and vomiting. He states he has been compliant with his medications but unfortunately his burst of atrial flutter with RVR are getting worse and he is not sure why. In the ER he was noted to have radiographic evidence of atrial fibrillation with rapid ventricular response complicated by elevated troponin rising from 48 pg/mL on admission up to 153 pg/mL on second and then a third troponin latisha to 568 pg/mL check consistent with non-STEMI type II in spite of being on a combination of Coreg, Lasix, metoprolol, amlodipine and losartan with the ER physician speaking to the inserter on-call who recommended medical stabilization until patient can be set up for an outpatient electrophysiologic study and treatment. He was then admitted to the PCU for ongoing care for a stay that is expected to be greater than 48 hours. [facility] Medical History Anemia of chronic renal failure, stage 4 (severe) Arteriosclerotic cardiovascular disease Atrial flutter Cardiology follow-up encounter Chest pain Chronic kidney disease with end stage renal failure on dialysis COPD (chronic obstructive pulmonary disease) CPAP (continuous positive airway pressure) dependence Degenerative disc disease, cervical Demand ischemia Diabetes Diabetes mellitus, type II, insulin dependent Diabetic polyneuropathy (04/2017) Dialysis patient Dyslipidemia Elevated troponin Elevated troponin ESRD on dialysis Essential (primary) hypertension Fistula GERD (gastroesophageal reflux disease) High cholesterol History of CHF (congestive heart failure) History of echocardiogram History of stress test Hypertension Hypotension Insulin dependent diabetes mellitus Leg cramps Morbid obesity Myocardial infarct Non-ischemic cardiomyopathy Non-smoker Non-ST elevation SC (NSTEMI) VERÓNICA (obstructive sleep apnea) Pneumonia due to COVID-19 virus Problem with dialysis access Sleep apnea Syncope (07/2018) Systolic and diastolic CHF, acute Wears glasses Wears partial dentures Home Medications aspirin 81 mg chewable tablet 81 mg PO DAILY HEART 08/10/17 [History Last Taken 01/22/23] omeprazole 20 mg capsule,delayed release 20 mg PO BIDAC gerd 08/08/18 [History Last Taken 01/22/23] blood-glucose meter (FreeStyle Liebenthal Lite kit) #1 ea 12/22/19 [Rx Last Taken Unknown] lancets 28 gauge (FreeStyle Lancets) #100 ea 12/22/19 [Rx Last Taken Unknown] pen needle, diabetic 32 gauge x 5/32 (BD Ultra-Fine China Pen Needle) #400 ea 12/22/19 [Rx Last Taken Unknown] albuterol sulfate 90 mcg/actuation aerosol inhaler 2 puff inhalation Q6H PRN Shortness Of Breath Or Wheezing 07/26/21 [History Last Taken 01/21/23] atorvastatin 80 mg tablet 80 mg PO QHS CHOLESTEROL 07/26/21 [History Last Taken 01/21/23] ezetimibe 10 mg tablet 10 mg PO DAILY HIGH CHOLESTEROL 07/26/21 [History Last Taken 01/21/23] insulin detemir U-100 100 unit/mL (3 mL) subcutaneous pen (Levemir FlexTouch U-100 Insulin) 40 unit subcut QHS BLOODSUGAR 07/26/21 [History Last Taken 01/21/23] losartan 50 mg tablet 50 mg PO DAILY BLOOD PRESSURE 07/26/21 [History Last Taken 01/21/23] sucroferric oxyhydroxide 500 mg chewable tablet (Velphoro) 1,500 mg PO TID KIDNEY HEALTH 02/20/22 [History Last Taken 01/21/23] insulin aspart U-100 100 unit/mL (3 mL) subcutaneous pen (Novolog FlexPen U-100 Insulin aspart) 15 unit subcut .COMPLEX BLOOD SUGAR 01/22/23 [History Last Taken 01/21/23] lanthanum 1,000 mg chewable tablet 3,000 mg PO TIDCM UNKNOWN 01/22/23 [History Last Taken 01/21/23] quinine-vitamin E capsule 1 cap PO DAILY CRAMPS 01/22/23 [History Last Taken 01/21/23] sertraline 50 mg tablet 50 mg PO DAILY ANTI DEPRESSANT 01/22/23 [History Last Taken 01/21/23] trazodone 50 mg tablet 50 mg PO QHS SLEEP 01/22/23 [History Last Taken 01/21/23] vitamin B complex-vitamin C-folic acid 0.8 mg tablet (Leonela-Herbie) 1 tab PO DAILY VITAMIN 01/22/23 [History Last Taken 01/21/23] clopidogrel 75 mg tablet 75 mg PO DAILY HEART #90 tabs 02/13/23 [Rx Last Taken Unknown] dulaglutide 0.75 mg/0.5 mL subcutaneous pen injector (Trulicity) 0.75 mg subcut QWEEK diabetes 04/10/23 [History Last Taken Unknown] amlodipine 10 mg tablet 10 mg PO DAILY #30 tabs 04/11/23 [Rx Last Taken Unknown] metoprolol succinate 200 mg tablet,extended release 24 hr 200 mg PO BID #60 tabs 04/11/23 [Rx Last Taken Unknown] carvedilol 25 mg tablet 25 mg PO Q12H control heart rate 05/04/23 [History Last Taken 04/02/23] cinacalcet 30 mg tablet 30 mg PO DAILY 05/04/23 [History Last Taken Unknown] cinacalcet 60 mg tablet 120 mg PO DAILY 05/04/23 [History Last Taken Unknown] furosemide 40 mg tablet 40 mg PO DAILY 05/04/23 [History Last Taken Unknown] gabapentin 300 mg capsule 300 mg PO QHS 05/04/23 [History Last Taken Unknown] nitroglycerin 0.4 mg sublingual tablet 0.4 mg buccal Q5M PRN chest pain 05/04/23 [History Last Taken Unknown] Allergy/AdvReac Type Severity Reaction Status Date / Time liraglutide [From Victoza] Allergy Unknown unknown Verified 05/04/23 21:39 NSAIDS (Non-Steroidal AdvReac Severe Renal Verified 05/04/23 21:39 Anti-Inflamma failure BLANCA Inhibitors AdvReac Intermediate cough Verified 05/04/23 21:39 Family History Mother Hypertension Grandmother Aneurysm Other NSTEMI, initial episode of care Stented coronary artery Surgical History History of angioplasty of peripheral vessel (07/2021) History of coronary artery stent placement Hx of cardiac catheterization (~01/23/23) Presence of surgically created arteriovenous shunt for hemodialysis (07/2017) Stented coronary artery (01/23/23) Social History household members: spouse housing: house Smoking Status: Never smoker alcohol intake: never substance use type: does not use ROS ROS Narrative Review of systems: Constitutional: Patient admits to sweats but denies fever or chills. Eyes: Patient denies visual changes or discharge from eyes. ENT: Patient denies runny nose, sore throat or ear pain. Cardiovascular: Patient admits to chest pain, palpitations and heart racing. Respiratory: Patient admits to shortness of breath but denies cough. Gastrointestinal: Patient admits to diarrhea but denies abdominal pain, nausea or vomiting. Musculoskeletal: Patient denies arthralgias or myalgias. Integumentary: Patient denies rash or abscess. Neurologic: Patient denies headache, dizziness or focal neurologic deficits. Psychiatric: Patient denies uncontrolled depression or anxiety. Allergic: Patient denies lip swelling, tongue swelling or urticaria. Hematologic: Patient denies easy bleeding or easy bruisability. 14 point review of systems otherwise negative except for positives noted above in HPI. Vital Signs Vital Signs Vital Signs: 05/04/23 21:39 05/04/23 21:47 05/04/23 21:48 Temperature 98 F Temperature Source Temporal Pulse Rate 153 H Respiratory Rate 20 H Respiratory Effort Short of Breath Blood Pressure 186/110 H Blood Pressure Mean 135 Pulse Ox 92 Oxygen Delivery Method Room Air 05/04/23 22:18 05/04/23 22:46 05/04/23 22:48 Temperature Temperature Source Pulse Rate 105 H 101 H 100 Respiratory Rate 18 21 H 18 Respiratory Effort Blood Pressure 134/113 H 157/92 H Blood Pressure Mean 120 111 Pulse Ox 92 92 93 Oxygen Delivery Method Room Air Room Air 05/04/23 22:50 05/04/23 23:00 05/04/23 23:10 Temperature Temperature Source Pulse Rate 97 99 98 Respiratory Rate 17 18 20 H Respiratory Effort Blood Pressure 147/95 H Blood Pressure Mean 110 Pulse Ox 90 89 94 Oxygen Delivery Method 05/04/23 23:15 05/04/23 23:20 05/04/23 23:30 Temperature Temperature Source Pulse Rate 97 98 93 Respiratory Rate 19 H 22 H 17 Respiratory Effort Blood Pressure 146/76 H 135/75 H Blood Pressure Mean 95 92 Pulse Ox 94 91 Oxygen Delivery Method Room Air 05/04/23 23:40 05/04/23 23:45 05/04/23 23:50 Temperature Temperature Source Pulse Rate 92 93 97 Respiratory Rate 22 H 17 22 H Respiratory Effort Blood Pressure 151/90 H Blood Pressure Mean 109 Pulse Ox 96 92 94 Oxygen Delivery Method 05/05/23 00:00 05/05/23 00:10 05/05/23 00:15 Temperature Temperature Source Pulse Rate 95 93 97 Respiratory Rate 19 H 17 24 H Respiratory Effort Blood Pressure 145/96 H 137/101 H Blood Pressure Mean 110 111 Pulse Ox 90 92 Oxygen Delivery Method Room Air 05/05/23 00:20 05/05/23 00:30 05/05/23 00:40 Temperature Temperature Source Pulse Rate 93 93 94 Respiratory Rate 19 H 21 H 22 H Respiratory Effort Blood Pressure 143/92 H Blood Pressure Mean 107 Pulse Ox 90 94 92 Oxygen Delivery Method Room Air 05/05/23 00:45 05/05/23 00:50 Temperature Temperature Source Pulse Rate 94 93 Respiratory Rate 20 H 14 Respiratory Effort Blood Pressure 144/88 H Blood Pressure Mean 104 Pulse Ox 94 Oxygen Delivery Method Weight Weight: 298 lb 15.149 oz Body Mass Index (BMI) 44.1 Physical Exam Const alert, oriented x3, no apparent distress and healthy appearing HEENT normocephalic, head/scalp atraumatic, hearing grossly normal bilaterally and moist oral mucous membranes Eyes PERRL and EOMs intact bilaterally Neck no lymphadenopathy and supple Resp normal respiratory effort, no retractions and no use of accessory muscles Cardio Cardio Narrative: Irregularly irregular GI normal to inspection, nondistended, normoactive bowel sounds, soft to palpation, non-tender and non-distended GI Narrative: Morbidly obese. Extremity normal to inspection, full ROM and no clubbing, cyanosis or edema Skin Skin Narrative: Patient has no evidence of rash at this time. Neuro oriented x3, CN's II-XII intact bilaterally, moves all extremities and no focal motor deficits Sensorium / Orientation: awake, alert, oriented to person, oriented to place and oriented to time Speech: speech normal Motor Exam: strength 5/5 throughout Psych affect normal Results Medical Records Data Attestation: I reviewed the patient's medical records Lab / Micro Data Attestation: I reviewed the patient's lab results. 05/05/23 04:00 05/05/23 04:00 Labs: Laboratory Results - last 24 hr 05/04/23 21:52: WBC 7.1, RBC 4.00 L, Hgb 11.4 L, Hct 35.3 L, MCV 88.3, MCH 28.5, MCHC 32.3, RDW Std Deviation 54.6 H, RDW Coeff of Kyle 17.1 H, Plt Count 379, MPV 9.3, Immature Gran % (Auto) 0.700, Neut % (Auto) 71.7 H, Lymph % (Auto) 15.4 L, [place] % (Auto) 10.4 H, Eos % (Auto) 1.1, Baso % (Auto) 0.7, Absolute Neuts (auto) 5.1, Absolute Lymphs (auto) 1.09, Nucleated RBC % 0, Sodium 138, Potassium 4.4, Chloride 98, Carbon Dioxide 33.0 H, BUN 26 H, Creatinine 6.24 H, Estim Creat Clear Calc 13.85, Est GFR (MDRD) Af Amer 12 L, Est GFR (MDRD) Non-Af 10 L, BUN/Creatinine Ratio 4.2 L, Glucose 130 H, Calcium 9.5, Phosphorus 5.9 H, Magnesium 2.2, Total Bilirubin 0.30, Direct Bilirubin 0.11, AST 20, ALT 35, Alkaline Phosphatase 126 H, Troponin I High Sens 48, Total Protein 7.3, Albumin 3.4 05/04/23 21:52: Albumin 3.4, Globulin 3.9 05/04/23 23:53: Troponin I High Sens 153 H* Rhythm Strip Rhythm Strip: A-fib Rate: 153 Ectopy: None Imagaing Radiology Impression Chest X-Ray 05/04/23 22:00 IMPRESSION: Stable chest. No new or increasing infiltrates. Electronically Signed: Jennifer Durant MD at 22:54 EST , Assessment & Plan Assessment/Plan (1) Atrial flutter with rapid ventricular response: (2) Elevated troponin: (3) Cardiomyopathy: QUALIFIERS: Cardiomyopathy type: unspecified Qualified Code(s): I42.9 - Cardiomyopathy, unspecified PLAN: Plan 1. Atrial fibrillation with rapid ventricular response complicated by elevated troponins rising from 48 pg/mL on admission up to 153 pg/mL on second check and then 568 pg/mL on third check consistent with suspected acute non-STEMI type II in spite of being on a combination of Coreg, Lasix, metoprolol, amlodipine and losartan - Admit to PCU. Continue IV Cardizem plus restart home medications as previous. Patient would likely also benefit from EP consultation to arrange possible ablation as he is virtually failing near maximal medical therapy. Continue BASA, Plavix and statin plus add full-dose Lovenox. Finally, we will consult the inserter on-call to see this patient on-rounds in the AM for further recommendations with help appreciated in advance. 2. Recently diagnosed coronary artery disease; status post SC and stent on 03/31/2023 adding the backdrop for #1- Noted. Continue current treatment. 3. End-stage renal disease; on hemodialysis with AV fistula in left upper extremity compounding #1 & #2 - If patient is still here Sunday we will consult nephrology to see to arrange HD. 4. Morbid obesity; with BMI of 43.9 present on admission with obstructive sleep apnea on CPAP adding to the pathological burden of #1 - #3 - Weight loss will be recommended. Resume CPAP as previous. 5. Essential hypertension - Continue home regimen plus give prn IV Hydralazine for systolic blood pressure > 160 mm Hg. 6. Hyperlipidemia - Resume statin. 7. GERD - Continue PPI. 8. OA - Stable. Give Tylenol prn. 9. DVT prophylaxis - Patient already on full/renally dosed Lovenox for #1 & #2. Total time: Approximately 55 minutes. Charges/Coding Visit Charges Inpatient E&M: 24498 Init Hosp L2
[2023-05-05] MEDS: Enoxaparin 150 MG/ML Syringe SC (01:50)
--- NOTE | 2023-05-05 02:40 | EKG12_ITS ---
Test Reason : CP ADMIT Blood Pressure : / mmHG Vent. Rate : 090 BPM Atrial Rate : 090 BPM P-R Int : 140 ms QRS Dur : 088 ms QT Int : 404 ms P-R-T Axes : 034 -37 014 degrees QTc Int : 494 ms Normal sinus rhythm Possible Left atrial enlargement Left axis deviation Minimal voltage criteria for LVH, may be normal variant ( R in aVL ) Confirmed by GA WILLETT, RADHA ([id number]), international editorial producer MADYSON YOST ([id number]) on 05/08/2023 10:17:39 AM Referred By: Confirmed By:RADHA KOROMA MD
[2023-05-05] MEDS: Acetaminophen 325 MG Tablet 650 MG PO ×2 (02:59→09:02)
[2023-05-05 04:13] LABS: Absolute Lymphocyte Count 0.95 X10^3/uL (0.83-4.51); Absolute Neutrophil Count 5.2 X10^3/uL (2.0-7.7); Basophil# 0.05 X10^3/uL; Basophil% 0.7 % (0-1); Eosinophil# 0.08 X10^3/uL; Eosinophils% 1.1 % (0-5); Hematocrit 34.5 % (40-54); Hemoglobin 11.4 g/dL (13.0-16.5); Lymphocyte # 0.95 X10^3/ul (0.83-4.51); Lymphocyte % 13.4 % (19-41); Mean Corpuscular Hgb 29.5 pg (27.0-32.0); Mean Corpuscular Volume 89.4 fL (80-94); Mean Platelet Vol. 9.1 fl (6.2-12.0); Monocyte# 0.72 X10^3/uL; Monocyte% 10.2 % (0-10); NRBC Flagged by Analyzer 0 % (0-5); Neutrophil # 5.24 X10^3/uL (2.7-7.7); Neutrophil % 74.2 % (47-70); Platelet Count 342 K/mm3 (150-450); RBC Distribution Width CV 17.2 % (11.6-14.6); RBC Distribution Width SD 55.4 fl (35.1-43.9); Red Blood Count 3.86 M/mm3 (4.6-6.2); White Blood Count 7.1 K/mm3 (4.4-11.0)
[2023-05-05 04:53] LABS: Troponin-I HS 576 pg/mL (3.0-78.0)
[2023-05-05 04:55] LABS: AST(SGOT) 17 U/L (15-37); Alanine Aminotransfer ALT/SGPT 31 U/L (16-61); Albumin, Serum 3.5 g/dL (3.2-5.0); Alkaline Phosphatase 115 U/L (45-117); Anion Gap 8 (5-15); BUN 29 mg/dL (7-18); BUN/Creat Ratio 4.3 RATIO (10-20); Calcium,Total 9.2 mg/dL (8.5-10.1); Chloride 99 mmol/L (98-107); Creatinine, Serum 6.67 mg/dL (0.70-1.30); EST Glomerular Filtration Rate 9 mL/min (>60); Est Glom Filt Rate - Afr Amer 11 mL/min (>60); Estimated Creatinine Clearance 12.96 ml/min; Globulin 3.6 g/dL (2.2-4.2); Glucose 166 mg/dL (74-106); Phosphorus 6.5 mg/dL (2.5-4.9); Potassium 4.4 mmol/L (3.5-5.1); Protein, Total 7.1 g/dL (6.4-8.2); Sodium Level 138 mmol/L (136-145); Thyroid Stim Hormone (TSH) 2.14 uIU/mL (0.358-3.74)
[2023-05-05 06:51] LABS: Troponin-I HS 596 pg/mL (3.0-78.0)
[2023-05-05] MEDS: Pantoprazole Sodium 20 MG Tablet PO ×2 (07:01→17:18)
--- NOTE | 2023-05-05 08:00 | PCM.PN.HOSP ---
Reason for Visit Reason for Visit: Diagnoses Cardiomyopathy, unspecified (05/05/23) Unspecified atrial flutter (05/05/23) Abnormal levels of other serum enzymes (05/05/23) Other specified abnormal findings of blood chemistry (05/05/23) Subjective Subjective Patient is a 52-year-old gentleman with a history of end-stage renal disease on hemodialysis who presented with shortness of breath palpitations as well as chest pain. He was found to be in A-fib with RVR admitted to a monitored bed for subsequent management Objective Data Objective Data Vital Signs: Vital Signs Temp Pulse Resp BP Pulse Ox O2 Del Method 97.2 F L 91 16 139/93 H 92 Room Air 05/05/23 02:45 05/05/23 02:45 05/05/23 02:45 05/05/23 02:45 05/05/23 02:45 05/05/23 02:45 Oxygen Delivery Method Room Air Weight: 134.7 kg Body Mass Index (BMI) 43.8 Intake & Output: Intake and Output for Last 24 Hours 05/03/23 05/04/23 05/05/23 23:59 23:59 23:59 Intake Total 400 / 400 Balance 400 / 400 Lab / Micro Data 05/05/23 04:00 05/05/23 04:00 Labs: Laboratory Results - last 24 hr 05/04/23 21:52: WBC 7.1, RBC 4.00 L, Hgb 11.4 L, Hct 35.3 L, MCV 88.3, MCH 28.5, MCHC 32.3, RDW Std Deviation 54.6 H, RDW Coeff of Kyle 17.1 H, Plt Count 379, MPV 9.3, Immature Gran % (Auto) 0.700, Neut % (Auto) 71.7 H, Lymph % (Auto) 15.4 L, [place] % (Auto) 10.4 H, Eos % (Auto) 1.1, Baso % (Auto) 0.7, Absolute Neuts (auto) 5.1, Absolute Lymphs (auto) 1.09, Nucleated RBC % 0, Sodium 138, Potassium 4.4, Chloride 98, Carbon Dioxide 33.0 H, BUN 26 H, Creatinine 6.24 H, Estim Creat Clear Calc 13.85, Est GFR (MDRD) Af Amer 12 L, Est GFR (MDRD) Non-Af 10 L, BUN/Creatinine Ratio 4.2 L, Glucose 130 H, Calcium 9.5, Phosphorus 5.9 H, Magnesium 2.2, Total Bilirubin 0.30, Direct Bilirubin 0.11, AST 20, ALT 35, Alkaline Phosphatase 126 H, Troponin I High Sens 48, Total Protein 7.3, Albumin 3.4 05/04/23 21:52: Albumin 3.4, Globulin 3.9 05/04/23 23:53: Troponin I High Sens 153 H* 05/05/23 04:00: WBC 7.1, RBC 3.86 L, Hgb 11.4 L, Hct 34.5 L, MCV 89.4, MCH 29.5, MCHC 33.0, RDW Std Deviation 55.4 H, RDW Coeff of Kyle 17.2 H, Plt Count 342, MPV 9.1, Immature Gran % (Auto) 0.400, Neut % (Auto) 74.2 H, Lymph % (Auto) 13.4 L, [place] % (Auto) 10.2 H, Eos % (Auto) 1.1, Baso % (Auto) 0.7, Absolute Neuts (auto) 5.2, Absolute Lymphs (auto) 0.95, Nucleated RBC % 0, Sodium 138, Potassium 4.4, Chloride 99, Carbon Dioxide 31.0, Anion Gap 8, BUN 29 H, Creatinine 6.67 H, Estim Creat Clear Calc 12.96, Est GFR (MDRD) Af Amer 11 L, Est GFR (MDRD) Non-Af 9 L, BUN/Creatinine Ratio 4.3 L, Glucose 166 H, Calcium 9.2, Phosphorus 6.5 H, Total Bilirubin 0.40, AST 17, ALT 31, Alkaline Phosphatase 115, Troponin I High Sens 576 H*, Total Protein 7.1, Albumin 3.5, Globulin 3.6, Albumin/Globulin Ratio 1.0, TSH 2.14 05/05/23 06:00: Troponin I High Sens 596 H* Radiography Diagnostic Testing: Radiology Impression Chest X-Ray 05/04/23 22:00 IMPRESSION: Stable chest. No new or increasing infiltrates. Electronically Signed: Jennifer Durant MD at 22:54 EST , Rhythm Strip Rhythm Strip: A-fib Rate: 153 Ectopy: None Physical Exam Narrative GENERAL: cooperative HEENT: Atraumatic; normocephalic EYES; Anicteric, Normal Conjunctiva NECK; supple, normal thyroid, RESPIRATORY: Diminished to auscultation CARDIOVASCULAR: Regular S1-S2 GI: soft, normoactive bowel sounds, : No Renal angle tenderness; EXTREMITIES: No edema, no clubbing, MUSCULOSKELETAL: no muscle wasting NEURO: Awake; no lateralizing signs. SKIN: No Rash PSYCH; Flat affect Assessment & Plan Assessment/Plan (1) Atrial flutter with rapid ventricular response: (2) Elevated troponin: (3) Cardiomyopathy: QUALIFIERS: Cardiomyopathy type: unspecified Qualified Code(s): I42.9 - Cardiomyopathy, unspecified PLAN: Plan Patient is a 52-year-old gentleman with a history of end-stage renal disease on hemodialysis who presented with shortness of breath palpitations as well as chest pain. He was found to be in A-fib with RVR admitted to a monitored bed for subsequent management 1. Paroxysmal A-fib/flutter with RVR ? Patient admitted to a monitored bed patient started on Cardizem drip. Patient did receive 1 dose of therapeutic Lovenox. Patient subsequently started on heparin given his impaired kidney function also patient was placed to cardiology 2. Coronary artery disease ? With recent TN with subsequent PCI with ALISON to mid left circumflex lesion on 01/23/2023 3. End-stage renal disease ? Patient is on hemodialysis, consult placed to nephrology for dialysis orders 4. Elevated troponin ? Possibly myocardial injury from patient paroxysmal A-fib. Given patient recent hospital stay for acute non-STEMI consult was placed to cardiology. Currently on guideline directed medical therapy with the did continue 5. Hypertension - Blood pressure controlled, home medications continued with dose adjustment as needed 6. Dyslipidemia -Patient is on statin therapy, continued at home dose 7. Class III obesity with BMI of 43.9 ? Complicating care weight loss advised 8. GERD ? On PPI 9. Diabetes mellitus type II -patient's oral hypoglycemics held. Placed on long acting insulin, Accu-Cheks a.c. and at bedtime and covered with sliding scale insulin 10. DVT prophylaxis ? Patient started on heparin Time spent in the patient's overall evaluation,decision-making process, review of diagnostic data, adjustment of management, discussion with other providers, nursing nursing and ancillary staff involved in patient's care documentation, 50 Minutes Charges/Coding Visit Charges Inpatient E&M: 41084 Subs Hosp L3
[2023-05-05] MEDS: 0.9% Saline Lock 10 ML Syringe IV (08:57)
[2023-05-05] MEDS: Folic Acid/Vitamin B Comp W-C 1 Capsule 1 CAP PO (09:02)
[2023-05-05] MEDS: Metoprolol(XL)Succ 200 MG Tablet PO (09:03)
[2023-05-05] MEDS: Aspirin 81 MG TAB.CHEW PO (09:03)
[2023-05-05] MEDS: Furosemide 40 MG Tablet PO (09:03)
[2023-05-05] MEDS: Sertraline 50 MG Tablet PO (09:03)
[2023-05-05] MEDS: Carvedilol 25 MG Tablet PO ×2 (09:03→17:18)
[2023-05-05] MEDS: amLODIPine 10 MG Tablet PO (09:03)
[2023-05-05] MEDS: Cinacalcet HCl 30 MG Tablet 150 MG PO (09:04)
[2023-05-05] MEDS: Losartan Potassium 50 MG Tablet PO (09:04)
[2023-05-05] MEDS: Clopidogrel Bisulfate 75 MG Tablet PO (09:04)
[2023-05-05] MEDS: Ezetimibe 10 MG Tablet PO (09:04)
[2023-05-05] MEDS: SEVELAMER CARBONATE 800 MG TABLET 4800 MG PO ×3 (09:04→17:18)
[2023-05-05 09:11] LABS: Troponin-I HS 605 pg/mL (3.0-78.0)
[2023-05-05] MEDS: Insulin Lispro 100 UNIT/ML INSULN.PEN 15 UNIT SC (09:33)
[2023-05-05 11:19] LABS: Bedside Glucose 137 mg/dL (74-106)
--- NOTE | 2023-05-05 11:25 | CASEMGMT ---
CAHTY URENA Readmission Note Previous Admission: 04/10/23-04/11/23 Diagnosis: NSTEMI DC Disposition: Home Current Admission: Admitted 05/05/22 Current Diagnosis: recurrent afib/flutter with rvr and elevated troponin Pt admitted on index with trop of 41 and peaked at 3782, cardiology felt due to troponin leak from afib with rvr. Pt CP had resolved and meds adjusted. Pt received dialysis day of dc. Pt presented on current admission with chest discomfort and racing heartbeat and dx with NSTEMI type II in spite of being on coreg, lasix, metoprolol, amlodipine and losartan. Pt to have EP c/s as outpatient. CATHY URENA into pt room, hospitalist just finished meeting with pt. Pt has dialysis [facility]F at [facility]. Pt reports he has been taking his medications correctly and that he has had a follow up with the PCP. He states he was supposed to have had a cardio appt yesterday but his insurance was trying to cancel me because we make too much money so pt did not make appt. Pt states he and his are working with his insurance on this. Pt reports being up in room indep and denies any homegoing needs. DC Plan: Home
--- NOTE | 2023-05-05 11:35 | CON.PCM.CA_ITS ---
Assessment & Plan Assessment/Plan (1) Paroxysmal atrial fibrillation: PLAN: Started on amiodarone to keep in sinus rhythm. CHADS2?VASc score high. Anticoagulation discussed with patient. Risks benefits explained. Recommend starting on apixaban 5 mg twice daily. Stop aspirin. Patient is in agreement. Refer to electrophysiology for consideration for A-fib ablation. (2) Coronary artery disease: PLAN: History of drug-eluting stent to the obtuse marginal and left circumflex. Continue Plavix. Stop aspirin as he is being started on apixaban as noted above. (3) Non-ischemic cardiomyopathy: PLAN: On beta-blockers and angiotensin receptor blockers. (4) Hypertension: PLAN: Continue current medications. (5) Elevated troponin: PLAN: Likely type II elevation with atrial fibrillation with rapid ventricular response on baseline coronary artery disease. (6) ESRD on dialysis: PLAN: As per nephrology. HPI Consult Data Date of Consult: 05/05/23 HPI Narrative Reason for Consultation: Atrial fibrillation HPI Narrative: This patient has past medical history significant for end-stage renal disease on hemodialysis, coronary artery disease, dyslipidemia, diabetes mellitus, hypertension and morbid obesity. He presented to the emergency room with complaints of palpitations. Per him, he did not have any chest pain or shortness of breath. Per him he has been having palpitations like this at least once a week. He was noted to be in atrial fibrillation with rapid ventricular response. He has since converted spontaneously to normal sinus rhythm. Presently asymptomatic. [facility] Medical History (Updated 05/05/23 @ 11:[address] Jayson Pickens MD) Anemia of chronic renal failure, stage 4 (severe) Arteriosclerotic cardiovascular disease Atrial flutter Cardiology follow-up encounter Chest pain Chronic kidney disease with end stage renal failure on dialysis COPD (chronic obstructive pulmonary disease) CPAP (continuous positive airway pressure) dependence Degenerative disc disease, cervical Demand ischemia Diabetes Diabetes mellitus, type II, insulin dependent Diabetic polyneuropathy (04/2017) Dialysis patient Dyslipidemia Elevated troponin Elevated troponin ESRD on dialysis Essential (primary) hypertension Fistula GERD (gastroesophageal reflux disease) High cholesterol History of CHF (congestive heart failure) History of echocardiogram History of stress test Hypertension Hypotension Insulin dependent diabetes mellitus Leg cramps Morbid obesity Myocardial infarct Non-ischemic cardiomyopathy Non-smoker Non-ST elevation AR (NSTEMI) VERÓNICA (obstructive sleep apnea) Pneumonia due to COVID-19 virus Problem with dialysis access Sleep apnea Syncope (07/2018) Systolic and diastolic CHF, acute Wears glasses Wears partial dentures Home Medications aspirin 81 mg chewable tablet 81 mg PO DAILY HEART 08/10/17 [History Last Taken 01/22/23] omeprazole 20 mg capsule,delayed release 20 mg PO BIDAC gerd 08/08/18 [History Last Taken 01/22/23] blood-glucose meter (FreeStyle [place] Lite kit) #1 ea 12/22/19 [Rx Last Taken Unknown] lancets 28 gauge (FreeStyle Lancets) #100 ea 12/22/19 [Rx Last Taken Unknown] pen needle, diabetic 32 gauge x 5/32 (BD Ultra-Fine [place] Pen Needle) #400 ea 12/22/19 [Rx Last Taken Unknown] albuterol sulfate 90 mcg/actuation aerosol inhaler 2 puff inhalation Q6H PRN Shortness Of Breath Or Wheezing 07/26/21 [History Last Taken 01/21/23] atorvastatin 80 mg tablet 80 mg PO QHS CHOLESTEROL 07/26/21 [History Last Taken 01/21/23] ezetimibe 10 mg tablet 10 mg PO DAILY HIGH CHOLESTEROL 07/26/21 [History Last Taken 01/21/23] insulin detemir U-100 100 unit/mL (3 mL) subcutaneous pen (Levemir FlexTouch U- 100 Insulin) 40 unit subcut QHS BLOODSUGAR 07/26/21 [History Last Taken 01/21/23] losartan 50 mg tablet 50 mg PO DAILY BLOOD PRESSURE 07/26/21 [History Last Taken 01/21/23] sucroferric oxyhydroxide 500 mg chewable tablet (Velphoro) 1,500 mg PO TID KIDNEY HEALTH 02/20/22 [History Last Taken 01/21/23] insulin aspart U-100 100 unit/mL (3 mL) subcutaneous pen (Novolog FlexPen U-100 Insulin aspart) 15 unit subcut .COMPLEX BLOOD SUGAR 01/22/23 [History Last Taken 01/21/23] lanthanum 1,000 mg chewable tablet 3,000 mg PO TIDCM UNKNOWN 01/22/23 [History Last Taken 01/21/23] quinine-vitamin E capsule 1 cap PO DAILY CRAMPS 01/22/23 [History Last Taken 01/21/23] sertraline 50 mg tablet 50 mg PO DAILY ANTI DEPRESSANT 01/22/23 [History Last Taken 01/21/23] trazodone 50 mg tablet 50 mg PO QHS SLEEP 01/22/23 [History Last Taken 01/21/23] vitamin B complex-vitamin C-folic acid 0.8 mg tablet (Leonela-Herbie) 1 tab PO DAILY VITAMIN 01/22/23 [History Last Taken 01/21/23] clopidogrel 75 mg tablet 75 mg PO DAILY HEART #90 tabs 02/13/23 [Rx Last Taken Unknown] dulaglutide 0.75 mg/0.5 mL subcutaneous pen injector (Trulicity) 0.75 mg subcut QWEEK diabetes 04/10/23 [History Last Taken Unknown] amlodipine 10 mg tablet 10 mg PO DAILY #30 tabs 04/11/23 [Rx Last Taken Unknown] metoprolol succinate 200 mg tablet,extended release 24 hr 200 mg PO BID #60 tabs 04/11/23 [Rx Last Taken Unknown] carvedilol 25 mg tablet 25 mg PO Q12H control heart rate 05/04/23 [History Last Taken 04/02/23] cinacalcet 30 mg tablet 30 mg PO DAILY 05/04/23 [History Last Taken Unknown] cinacalcet 60 mg tablet 120 mg PO DAILY 05/04/23 [History Last Taken Unknown] furosemide 40 mg tablet 40 mg PO DAILY 05/04/23 [History Last Taken Unknown] gabapentin 300 mg capsule 300 mg PO QHS 05/04/23 [History Last Taken Unknown] nitroglycerin 0.4 mg sublingual tablet 0.4 mg buccal Q5M PRN chest pain 05/04/23 [History Last Taken Unknown] Allergy/AdvReac Type Severity Reaction Status Date / Time liraglutide [From Victoza] Allergy Unknown unknown Verified 05/04/23 21:39 NSAIDS (Non-Steroidal AdvReac Severe Renal Verified 05/04/23 21:39 Anti-Inflamma failure BLANCA Inhibitors AdvReac Intermediate cough Verified 05/04/23 21:39 Family History Mother Hypertension Grandmother Aneurysm Other NSTEMI, initial episode of care Stented coronary artery Surgical History History of angioplasty of peripheral vessel (07/2021) History of coronary artery stent placement Hx of cardiac catheterization (~01/23/23) Presence of surgically created arteriovenous shunt for hemodialysis (07/2017) Stented coronary artery (01/23/23) Social History household members: spouse housing: house Smoking Status: Never smoker alcohol intake: never substance use type: does not use Physical Exam Narrative Morbidly obese. Comfortable. Heart sounds 1 and 2 normal. Clear to auscultation bilaterally. Alert oriented x 3. No ankle edema. Risk Stratification Risk Stratification Applicable: No Objective Data Vital Signs: Vital Signs Temp Pulse Resp BP Pulse Ox O2 Del Method 99.3 F H 93 16 149/96 H 92 Room Air 05/05/23 08:51 05/05/23 09:03 05/05/23 08:51 05/05/23 09:03 05/05/23 08:51 05/05/23 08:51 Oxygen Delivery Method Room Air Weight: 296 lb 15.402 oz Body Mass Index (BMI) 43.8 Intake & Output: Intake and Output for Last 24 Hours 05/03/23 05/04/23 05/05/23 23:59 23:59 23:59 Intake Total 400 / 400 Balance 400 / 400 Lab / Micro Data 05/05/23 04:00 05/05/23 04:00 Labs: Laboratory Results - last 24 hr 05/04/23 21:52: WBC 7.1, RBC 4.00 L, Hgb 11.4 L, Hct 35.3 L, MCV 88.3, MCH 28.5, MCHC 32.3, RDW Std Deviation 54.6 H, RDW Coeff of Kyle 17.1 H, Plt Count 379, MPV 9.3, Immature Gran % (Auto) 0.700, Neut % (Auto) 71.7 H, Lymph % (Auto) 15.4 L, [place] % (Auto) 10.4 H, Eos % (Auto) 1.1, Baso % (Auto) 0.7, Absolute Neuts (auto) 5.1, Absolute Lymphs (auto) 1.09, Nucleated RBC % 0, Sodium 138, Potassium 4.4, Chloride 98, Carbon Dioxide 33.0 H, BUN 26 H, Creatinine 6.24 H, Estim Creat Clear Calc 13.85, Est GFR (MDRD) Af Amer 12 L, Est GFR (MDRD) Non-Af 10 L, BUN/Creatinine Ratio 4.2 L, Glucose 130 H, Calcium 9.5, Phosphorus 5.9 H, Magnesium 2.2, Total Bilirubin 0.30, Direct Bilirubin 0.11, AST 20, ALT 35, Alkaline Phosphatase 126 H, Troponin I High Sens 48, Total Protein 7.3, Albumin 3.4 05/04/23 21:52: Albumin 3.4, Globulin 3.9 05/04/23 23:53: Troponin I High Sens 153 H* 05/05/23 04:00: WBC 7.1, RBC 3.86 L, Hgb 11.4 L, Hct 34.5 L, MCV 89.4, MCH 29.5, MCHC 33.0, RDW Std Deviation 55.4 H, RDW Coeff of [place] 17.2 H, Plt Count 342, MPV 9.1, Immature Gran % (Auto) 0.400, Neut % (Auto) 74.2 H, Lymph % (Auto) 13.4 L, [place] % (Auto) 10.2 H, Eos % (Auto) 1.1, Baso % (Auto) 0.7, Absolute Neuts (auto) 5.2, Absolute Lymphs (auto) 0.95, Nucleated RBC % 0, Sodium 138, Potassium 4.4, Chloride 99, Carbon Dioxide 31.0, Anion Gap 8, BUN 29 H, Creatinine 6.67 H, Estim Creat Clear Calc 12.96, Est GFR (MDRD) Af Amer 11 L, Est GFR (MDRD) Non-Af 9 L, BUN/Creatinine Ratio 4.3 L, Glucose 166 H, Calcium 9.2, Phosphorus 6.5 H, Total Bilirubin 0.40, AST 17, ALT 31, Alkaline Phosphatase 115, Troponin I High Sens 576 H*, Total Protein 7.1, Albumin 3.5, Globulin 3.6, Albumin/Globulin Ratio 1.0, TSH 2.14 05/05/23 06:00: Troponin I High Sens 596 H* 05/05/23 08:14: Troponin I High Sens 605 H* 05/05/23 08:43: POC Glucose 137 H Rhythm Strip Rhythm Strip: A-fib Rate: 153 Ectopy: None Cardiology Labs/Tests 05/04/23 21:52: WBC 7.1, RBC 4.00 L, Hgb 11.4 L, Hct 35.3 L, MCV 88.3, MCH 28.5, MCHC 32.3, Plt Count 379, MPV 9.3, Immature Gran % (Auto) 0.700, Neut % (Auto) 71.7 H, Lymph % (Auto) 15.4 L, [place] % (Auto) 10.4 H, Eos % (Auto) 1.1, Baso % (Auto) 0.7, Absolute Neuts (auto) 5.1, Nucleated RBC % 0, Sodium 138, Potassium 4.4, Chloride 98, Carbon Dioxide 33.0 H, BUN 26 H, Creatinine 6.24 H, Est GFR (MDRD) Af Amer 12 L, Est GFR (MDRD) Non-Af 10 L, BUN/Creatinine Ratio 4.2 L, Glucose 130 H, Calcium 9.5, Phosphorus 5.9 H, Magnesium 2.2, Total Bilirubin 0.30, Direct Bilirubin 0.11 05/05/23 04:00: WBC 7.1, RBC 3.86 L, Hgb 11.4 L, Hct 34.5 L, MCV 89.4, MCH 29.5, MCHC 33.0, Plt Count 342, MPV 9.1, Immature Gran % (Auto) 0.400, Neut % (Auto) 74.2 H, Lymph % (Auto) 13.4 L, [place] % (Auto) 10.2 H, Eos % (Auto) 1.1, Baso % (Auto) 0.7, Absolute Neuts (auto) 5.2, Nucleated RBC % 0, Sodium 138, Potassium 4.4, Chloride 99, Carbon Dioxide 31.0, Anion Gap 8, BUN 29 H, Creatinine 6.67 H, Est GFR (MDRD) Af Amer 11 L, Est GFR (MDRD) Non-Af 9 L, BUN/Creatinine Ratio 4.3 L, Glucose 166 H, Calcium 9.2, Phosphorus 6.5 H, Total Bilirubin 0.40 Rhythm: EKG: ECHO: Stress Test: Cardiac Cath: PCI: CT Surgery: Holter monitor: EPS: PPM: CXR: Chest CT Scan: Radiography Diagnostic Testing: Radiology Impression Chest X-Ray 05/04/23 22:00 IMPRESSION: Stable chest. No new or increasing infiltrates. Electronically Signed: Jennifer Durant MD at 22:54 EST ,
[2023-05-05 12:26] LABS: Troponin-I HS 653 pg/mL (3.0-78.0)
[2023-05-05] MEDS: Amiodarone 200 MG Tablet PO ×2 (13:22→21:00)
[2023-05-05] MEDS: APIXABAN 5 MG TABLET PO ×2 (13:22→21:00)
[2023-05-05 15:23] LABS: Bedside Glucose 81 mg/dL (74-106)
[2023-05-05 18:00] LABS: Bedside Glucose 111 mg/dL (74-106)
[2023-05-05 18:00] LABS: Bedside Glucose 111 mg/dL (74-106)
[2023-05-05] MEDS: Insulin Glargine-YFGN 100 UNIT/ML Pen 30 UNIT SC (20:58)
[2023-05-05] MEDS: Gabapentin 300 MG Capsule PO (21:00)
[2023-05-05] MEDS: Atorvastatin Calcium 80 MG Tablet PO (21:00)
[2023-05-05] MEDS: traZODone 50 MG Tablet PO (21:00)
[2023-05-05 22:24] LABS: Bedside Glucose 120 mg/dL (74-106)
[2023-05-06 01:06] LABS: Bedside Glucose 134 mg/dL (74-106)
[2023-05-06 02:58] VITALS: BP 130/92; PULSE 83; RESP 18; TEMP 36.1; O2SAT 99
[2023-05-06 06:00] VITALS: BMI 44.9
[2023-05-06 06:52] LABS: Absolute Lymphocyte Count 1.13 X10^3/uL (0.83-4.51); Absolute Neutrophil Count 5.9 X10^3/uL (2.0-7.7); Basophil# 0.06 X10^3/uL; Basophil% 0.7 % (0-1); Eosinophil# 0.16 X10^3/uL; Eosinophils% 1.9 % (0-5); Hematocrit 33.5 % (40-54); Hemoglobin 10.7 g/dL (13.0-16.5); Lymphocyte # 1.13 X10^3/ul (0.83-4.51); Lymphocyte % 13.5 % (19-41); Mean Corp Hgb Conc 31.9 g/dL (32-36); Mean Corpuscular Hgb 28.3 pg (27.0-32.0); Mean Corpuscular Volume 88.6 fL (80-94); Mean Platelet Vol. 9.6 fl (6.2-12.0); Monocyte# 1.05 X10^3/uL; Monocyte% 12.6 % (0-10); NRBC Flagged by Analyzer 0 % (0-5); Neutrophil % 70.7 % (47-70); Platelet Count 350 K/mm3 (150-450); RBC Distribution Width CV 16.9 % (11.6-14.6); RBC Distribution Width SD 54.4 fl (35.1-43.9); Red Blood Count 3.78 M/mm3 (4.6-6.2); White Blood Count 8.4 K/mm3 (4.4-11.0)
[2023-05-06] MEDS: Pantoprazole Sodium 20 MG Tablet PO (07:03)
--- NOTE | 2023-05-06 07:19 | PCM.PN.HOSP ---
Reason for Visit Reason for Visit: Diagnoses Essential (primary) hypertension (05/05/23) Atherosclerotic heart disease of [place] coronary artery without angina pectoris (05/05/23) Other cardiomyopathies (05/05/23) Cardiomyopathy, unspecified (05/05/23) Paroxysmal atrial fibrillation (05/05/23) Unspecified atrial flutter (05/05/23) End stage renal disease (05/05/23) Abnormal levels of other serum enzymes (05/05/23) Other specified abnormal findings of blood chemistry (05/05/23) Dependence on renal dialysis (05/05/23) Subjective Subjective Patient seen heart rate controlled. Patient was seen in consultation by Dr. Pickens with cardiology. Agreed with initiation of apixaban Objective Data Objective Data Vital Signs: Vital Signs Temp Pulse Resp BP Pulse Ox O2 Del Method O2 Flow Rate 97.0 F L 83 18 130/92 H 99 Nasal Cannula 2 05/06/23 02:58 05/06/23 02:58 05/06/23 02:58 05/06/23 02:58 05/06/23 02:58 05/06/23 02:58 05/06/23 02:58 Oxygen Flow Rate (L/min) 2 Oxygen Delivery Method Nasal Cannula Weight: 138 kg Body Mass Index (BMI) 44.9 Intake & Output: Intake and Output for Last 24 Hours 05/04/23 05/05/23 05/06/23 23:59 23:59 23:59 Intake Total 1250 / 1250 Output Total 0 / 0 Balance 1250 / 1250 Lab / Micro Data 05/06/23 05:30 05/06/23 05:30 Labs: Laboratory Results - last 24 hr 05/05/23 08:14: Troponin I High Sens 605 H* 05/05/23 08:43: POC Glucose 137 H 05/05/23 11:17: POC Glucose 81 05/05/23 11:50: Troponin I High Sens 653 H* 05/05/23 15:08: POC Glucose 111 H 05/05/23 17:14: POC Glucose 111 H 05/05/23 20:55: POC Glucose 120 H 05/05/23 23:46: POC Glucose 134 H 05/06/23 05:30: WBC 8.4, RBC 3.78 L, Hgb 10.7 L, Hct 33.5 L, MCV 88.6, MCH 28.3, MCHC 31.9 L, RDW Std Deviation 54.4 H, RDW Coeff of Kyle 16.9 H, Plt Count 350, MPV 9.6, Immature Gran % (Auto) 0.600, Neut % (Auto) 70.7 H, Lymph % (Auto) 13.5 L, [place] % (Auto) 12.6 H, Eos % (Auto) 1.9, Baso % (Auto) 0.7, Absolute Neuts (auto) 5.9, Absolute Lymphs (auto) 1.13, Nucleated RBC % 0 Rhythm Strip Rhythm Strip: A-fib Rate: 153 Ectopy: None Physical Exam Narrative GENERAL: cooperative HEENT: Atraumatic; normocephalic EYES; Anicteric, Normal Conjunctiva NECK; supple, normal thyroid, RESPIRATORY: Diminished to auscultation CARDIOVASCULAR: Regular S1-S2 GI: soft, normoactive bowel sounds, : No Renal angle tenderness; EXTREMITIES: No edema, no clubbing, MUSCULOSKELETAL: no muscle wasting NEURO: Awake; no lateralizing signs. SKIN: No Rash PSYCH; Flat affect Assessment & Plan Assessment/Plan (1) Atrial flutter with rapid ventricular response: (2) Elevated troponin: (3) Cardiomyopathy: QUALIFIERS: Cardiomyopathy type: unspecified Qualified Code(s): I42.9 - Cardiomyopathy, unspecified PLAN: Plan Patient is a 52-year-old gentleman with a history of end-stage renal disease on hemodialysis who presented with shortness of breath palpitations as well as chest pain. He was found to be in A-fib with RVR admitted to a monitored bed for subsequent management 1. Paroxysmal A-fib/flutter with RVR ? Patient admitted to a monitored bed patient started on Cardizem drip. Patient did receive 1 dose of therapeutic Lovenox. Patient subsequently started on heparin given his impaired kidney function also patient was placed to cardiology -05/06/2023. Given patient high [id number] 2 score patient was started on 2. Coronary artery disease ? With recent NH with subsequent PCI with ALISON to mid left circumflex lesion on 01/23/2023 3. End-stage renal disease ? Patient is on hemodialysis, consult placed to nephrology for dialysis orders 4. Elevated troponin ? Possibly myocardial injury from patient paroxysmal A-fib. Given patient recent hospital stay for acute non-STEMI consult was placed to cardiology. Currently on guideline directed medical therapy with the did continue 5. Hypertension - Blood pressure controlled, home medications continued with dose adjustment as needed 6. Dyslipidemia -Patient is on statin therapy, continued at home dose 7. Class III obesity with BMI of 43.9 ? Complicating care weight loss advised 8. GERD ? On PPI 9. Diabetes mellitus type II -patient's oral hypoglycemics held. Placed on long acting insulin, Accu-Cheks a.c. and at bedtime and covered with sliding scale insulin 10. DVT prophylaxis ? Patient started on heparin Time spent in the patient's overall evaluation,decision-making process, review of diagnostic data, adjustment of management, discussion with other providers, nursing nursing and ancillary staff involved in patient's care documentation, 35 Minutes Charges/Coding Visit Charges Inpatient E&M: 85790 Subs Hosp L2
[2023-05-06 07:57] LABS: Anion Gap 10 (5-15); BUN 41 mg/dL (7-18); BUN/Creat Ratio 4.7 RATIO (10-20); Calcium,Total 8.1 mg/dL (8.5-10.1); Chloride 96 mmol/L (98-107); Creatinine, Serum 8.78 mg/dL (0.70-1.30); EST Glomerular Filtration Rate 7 mL/min (>60); Est Glom Filt Rate - Afr Amer 8 mL/min (>60); Estimated Creatinine Clearance 9.84 ml/min; Glucose 87 mg/dL (74-106); Magnesium 2.3 mg/dL (1.6-2.6); Potassium 4.5 mmol/L (3.5-5.1); Sodium Level 138 mmol/L (136-145)
[2023-05-06 09:02] LABS: Bedside Glucose 104 mg/dL (74-106)
[2023-05-06 10:10] VITALS: BP 111/84; PULSE 80; RESP 16; TEMP 36.8; O2SAT 97
[2023-05-06] MEDS: Carvedilol 25 MG Tablet PO (10:12)
[2023-05-06] MEDS: Folic Acid/Vitamin B Comp W-C 1 Capsule 1 CAP PO (10:13)
[2023-05-06] MEDS: Amiodarone 200 MG Tablet PO (10:13)
[2023-05-06] MEDS: APIXABAN 5 MG TABLET PO (10:13)
[2023-05-06] MEDS: amLODIPine 10 MG Tablet PO (10:14)
[2023-05-06] MEDS: Losartan Potassium 50 MG Tablet PO (10:14)
[2023-05-06] MEDS: Furosemide 40 MG Tablet PO (10:14)
[2023-05-06] MEDS: Cinacalcet HCl 30 MG Tablet 150 MG PO (10:15)
[2023-05-06] MEDS: Sertraline 50 MG Tablet PO (10:15)
[2023-05-06] MEDS: Ezetimibe 10 MG Tablet PO (10:15)
[2023-05-06] MEDS: Clopidogrel Bisulfate 75 MG Tablet PO (10:15)
--- NOTE | 2023-05-06 10:38 | PCM.DC.SUM ---
Providers Date of Admission: 05/05/23 Date of Discharge: 05/06/23 Primary Care Physician: Dr. Norris Mcqueen MD Consultations 05/05/23 03:12 Consult: Cardiology Routine Consulting Provider: Jayson Pickens Reason for Consult: Recurrent A-flutter with RVR and elevated troponin. EMERGENT Consult: No MD Notified: Yes Date Notified: 05/05/23 Time Notified: 06:44 Method of Notification: Text Method of Consult:: In-Person Reason For Visit: RECURRENT AFIB/FLUTTER W/RVR AND ELEVATED TROPONIN Diagnosis Discharge Diagnosis (1) Atrial flutter with rapid ventricular response: Status: Acute Code(s): I48.92 - Unspecified atrial flutter (2) Elevated troponin: Status: Acute Code(s): R79.89 - Other specified abnormal findings of blood chemistry (3) Cardiomyopathy: Status: Acute Code(s): I42.9 - Cardiomyopathy, unspecified Qualifiers: Cardiomyopathy type: unspecified Qualified Code(s): I42.9 - Cardiomyopathy, unspecified Plan Patient is a 52-year-old gentleman with a history of end-stage renal disease on hemodialysis who presented with shortness of breath palpitations as well as chest pain. He was found to be in A-fib with RVR admitted to a monitored bed for subsequent management 1. Paroxysmal A-fib/flutter with RVR ? Patient admitted to a monitored bed patient started on Cardizem drip. Patient did receive 1 dose of therapeutic Lovenox. Patient subsequently started on heparin given his impaired kidney function also patient was placed to cardiology -05/06/2023. Given patient high [id number] 2 score patient was started on 2. Coronary artery disease ? With recent NC with subsequent PCI with ALISON to mid left circumflex lesion on 01/23/2023 ? Patient is on guideline directed medical therapy. Patient aspirin was however discontinued per recommendations from cardiology after patient was started on apixaban 3. End-stage renal disease ? Patient is on hemodialysis, consult placed to nephrology for dialysis orders 4. Elevated troponin ? Possibly myocardial injury from patient paroxysmal A-fib. Given patient recent hospital stay for acute non-STEMI consult was placed to cardiology. Currently on guideline directed medical therapy with the did continue 5. Hypertension - Blood pressure controlled, home medications continued with dose adjustment as needed 6. Dyslipidemia -Patient is on statin therapy, continued at home dose 7. Class III obesity with BMI of 43.9 ? Complicating care weight loss advised 8. GERD ? On PPI 9. Diabetes mellitus type II -patient's oral hypoglycemics held. Placed on long acting insulin, Accu-Cheks a.c. and at bedtime and covered with sliding scale insulin 10. DVT prophylaxis ? Patient started on heparin Time spent in the patient's overall evaluation,decision-making process, review of diagnostic data, adjustment of management, discussion with other providers, nursing nursing and ancillary staff involved in patient's care documentation, 35 Minutes Medications at Discharge Home Medications omeprazole 20 mg capsule,delayed release 20 mg PO BIDAC gerd 08/08/18 blood-glucose meter (FreeStyle [place] Lite kit) #1 ea 12/22/19 lancets 28 gauge (FreeStyle Lancets) #100 ea 12/22/19 pen needle, diabetic 32 gauge x 5/32 (BD Ultra-Fine [place] Pen Needle) #400 ea 12/22/19 albuterol sulfate 90 mcg/actuation aerosol inhaler 2 puff inhalation Q6H PRN Shortness Of Breath Or Wheezing 07/26/21 atorvastatin 80 mg tablet 80 mg PO QHS CHOLESTEROL 07/26/21 ezetimibe 10 mg tablet 10 mg PO DAILY HIGH CHOLESTEROL 07/26/21 insulin detemir U-100 100 unit/mL (3 mL) subcutaneous pen (Levemir FlexTouch U-100 Insulin) 40 unit subcut QHS BLOODSUGAR 07/26/21 losartan 50 mg tablet 50 mg PO DAILY BLOOD PRESSURE 07/26/21 sucroferric oxyhydroxide 500 mg chewable tablet (Velphoro) 1,500 mg PO TID [facility] 02/20/22 insulin aspart U-100 100 unit/mL (3 mL) subcutaneous pen (Novolog FlexPen U-100 Insulin aspart) 15 unit subcut .COMPLEX BLOOD SUGAR 01/22/23 lanthanum 1,000 mg chewable tablet 3,000 mg PO TIDCM UNKNOWN 01/22/23 quinine-vitamin E capsule 1 cap PO DAILY CRAMPS 01/22/23 sertraline 50 mg tablet 50 mg PO DAILY ANTI DEPRESSANT 01/22/23 trazodone 50 mg tablet 50 mg PO QHS SLEEP 01/22/23 vitamin B complex-vitamin C-folic acid 0.8 mg tablet (Leonela-Herbie) 1 tab PO DAILY VITAMIN 01/22/23 clopidogrel 75 mg tablet 75 mg PO DAILY HEART #90 tabs 02/13/23 dulaglutide 0.75 mg/0.5 mL subcutaneous pen injector (Trulicity) 0.75 mg subcut QWEEK diabetes 04/10/23 amlodipine 10 mg tablet 10 mg PO DAILY #30 tabs 04/11/23 metoprolol succinate 200 mg tablet,extended release 24 hr 200 mg PO BID #60 tabs 04/11/23 carvedilol 25 mg tablet 25 mg PO Q12H control heart rate 05/04/23 cinacalcet 30 mg tablet 30 mg PO DAILY 05/04/23 cinacalcet 60 mg tablet 120 mg PO DAILY 05/04/23 furosemide 40 mg tablet 40 mg PO DAILY 05/04/23 gabapentin 300 mg capsule 300 mg PO QHS 05/04/23 nitroglycerin 0.4 mg sublingual tablet 0.4 mg buccal Q5M PRN chest pain 05/04/23 apixaban 5 mg tablet (Eliquis) 5 mg PO BID 60 days #120 tabs 05/06/23 Hospital Course Summary of Care Provided Minutes Spent on Discharge: 35 Physical Exam Narrative GENERAL: cooperative HEENT: Atraumatic; normocephalic EYES; Anicteric, Normal Conjunctiva NECK; supple, normal thyroid, RESPIRATORY: Diminished to auscultation CARDIOVASCULAR: Regular S1-S2 GI: soft, normoactive bowel sounds, : No Renal angle tenderness; EXTREMITIES: No edema, no clubbing, MUSCULOSKELETAL: no muscle wasting NEURO: Awake; no lateralizing signs. SKIN: No Rash PSYCH; Flat affect Weight / BMI Weight Weight: 138 kg Body Mass Index (BMI) 44.9 ABG / Lab / Microbiology Data 05/06/23 05:30 05/06/23 05:30 Laboratory: Laboratory Results - last 24 hr 05/05/23 08:43: POC Glucose 137 H 05/05/23 11:17: POC Glucose 81 05/05/23 11:50: Troponin I High Sens 653 H* 05/05/23 15:08: POC Glucose 111 H 05/05/23 17:14: POC Glucose 111 H 05/05/23 20:55: POC Glucose 120 H 05/05/23 23:46: POC Glucose 134 H 05/06/23 05:30: WBC 8.4, RBC 3.78 L, Hgb 10.7 L, Hct 33.5 L, MCV 88.6, MCH 28.3, MCHC 31.9 L, RDW Std Deviation 54.4 H, RDW Coeff of Kyle 16.9 H, Plt Count 350, MPV 9.6, Immature Gran % (Auto) 0.600, Neut % (Auto) 70.7 H, Lymph % (Auto) 13.5 L, [place] % (Auto) 12.6 H, Eos % (Auto) 1.9, Baso % (Auto) 0.7, Absolute Neuts (auto) 5.9, Absolute Lymphs (auto) 1.13, Nucleated RBC % 0, Sodium 138, Potassium 4.5, Chloride 96 L, Carbon Dioxide 32.0, Anion Gap 10, BUN 41 H, Creatinine 8.78 H*, Estim Creat Clear Calc 9.84, Est GFR (MDRD) Af Amer 8 L, Est GFR (MDRD) Non-Af 7 L, BUN/Creatinine Ratio 4.7 L, Glucose 87, Calcium 8.1 L, Phosphorus 6.0 H, Magnesium 2.3 05/06/23 08:45: POC Glucose 104 D/C Instructions Discharge Diet: Low fat / Low cholesterol and 1800 Calorie Control Diet Discharge Activity: Return to Normal Activity Call your doctor if you observe: Fever of 101 or Higher, Shortness of breath, Fainting spells and Chest pain Meaningful Use Info Meaningful Use Diagnoses (Choose all that apply): None applicable Discharge Plan Admission Admit Date/Time: 05/05/23 01:10 Attending Provider: Del Ritter Primary Care Provider: Norris Mcqueen Consulting Providers: Jayson Pickens; Del Yepez Discharge Orders/Prescriptions Prescriptions: New Eliquis 5 mg Tablet 5 mg PO BID 60 Days Qty: 120 0RF Continued (DME) blood-glucose meter [FreeStyle [place] Lite] Kit See Rx Instructions .ROUTE .MEDSUPPLY Qty: 1 0RF Rx Instructions: As directed (DME) pen needle, diabetic [BD Ultra-Fine [place] Pen Needle] 32 gauge x 5/32 needle See Rx Instructions .ROUTE .MEDSUPPLY Qty: 400 1RF Rx Instructions: 4 times daily (DME) lancets [FreeStyle Lancets] 28 gauge misc See Rx Instructions .ROUTE .MEDSUPPLY Qty: 100 5RF Rx Instructions: As directed losartan 50 mg tablet 50 mg PO DAILY atorvastatin 80 mg tablet 80 mg PO QHS ezetimibe 10 mg tablet 10 mg PO DAILY albuterol sulfate 90 mcg/actuation HFA aerosol inhaler 2 puff inhalation Q6H PRN (Reason: Shortness Of Breath Or Wheezing) Levemir FlexTouch U100 Insulin 100 unit/mL (3 mL) insulin pen 40 unit subcut QHS clopidogrel 75 mg tablet 75 mg PO DAILY Qty: 90 3RF omeprazole 20 MG capsule,delayed release(DR/EC) 20 mg PO BIDAC Velphoro 500 mg tablet,chewable 1,500 mg PO TID Patient Comments: CHEW & SWALLOW 3 TABLETS THREE TIMES A DAY WITH MEALS Trulicity 0.75 mg/0.5 mL pen injector 0.75 mg SUBCUT QWEEK Patient Comments: Inject 0.75 mg subcutaneously one time a week. Inject dose once per week. Discard Pen After Rx Instructions: pt unsure of dosage amount metoprolol succinate 200 mg Tablet Extended Release 24 Hr 200 mg PO BID Qty: 60 2RF amlodipine 10 mg Tablet 10 mg PO DAILY Qty: 30 2RF Leonela-Herbie 0.8 mg tablet 1 tab PO DAILY trazodone 50 mg tablet 50 mg PO QHS sertraline 50 mg tablet 50 mg PO DAILY lanthanum 1,000 mg tablet,chewable 3,000 mg PO TIDCM quinine-vitamin E Capsule 1 cap PO DAILY insulin aspart U-100 [Novolog FlexPen U-100 Insulin] 100 unit/mL (3 mL) insulin pen 15 unit SC .COMPLEX Rx Instructions: 15 units subcutaneously TID CM carvedilol 25 mg tablet 25 mg PO Q12H Patient Comments: take 1 tablet by mouth twice a day WITH A MEAL cinacalcet 30 mg tablet 30 mg PO DAILY Patient Comments: TAKE 1 TABLET BY MOUTH DAILY WITH 60 MG TABLETS FOR TOTAL DAILY DOSE OF 150 MG cinacalcet 60 mg tablet 120 mg PO DAILY Patient Comments: TAKE 2 TABLETS BY MOUTH DAILY furosemide 40 mg tablet 40 mg PO DAILY Patient Comments: TAKE 1 TABLET BY MOUTH EVERY DAY gabapentin 300 mg capsule 300 mg PO QHS Patient Comments: Take 1 capsule by mouth daily at bedtime nitroglycerin 0.4 mg tablet, sublingual 0.4 mg buccal Q5M PRN (Reason: chest pain) Patient Comments: Dissolve 1 tablet under the tongue every 5 minutes as needed for chest pain. Discontinued aspirin 81 MG tablet,chewable 81 mg PO DAILY Patient Comments: ANTIPLATELET Referrals / Follow Up: Jayson Pickens MD [Med Staff - Active Staff] - Within 2 Weeks Norris Mcqueen MD [Primary Care Provider] - Within 1 Week Disposition Disposition (needs filled in before D/C Order can be placed): Home, Self Care Charges/Coding Visit Charges Inpatient E&M: 27329 Disch Hosp >30min
== END 2023-05-06 11:46 | disposition home or self-care (01) ==
LOC: ED 22:34 → PCU 05-05 07:27
PROVIDERS: Admitting Provider Internal Medicine; Emergency Provider Emergency Medicine; PCP Family Medicine; Visit Provider Internal Medicine
DX: I48.92 Unspecified atrial flutter (principal); I13.2 Hypertensive heart and chronic kidney disease with heart failure and with stage 5 chronic kidney disease, or end stage renal disease; Z99.2 Dependence on renal dialysis; J44.9 Chronic obstructive pulmonary disease, unspecified; I50.42 Chronic combined systolic (congestive) and diastolic (congestive) heart failure; I42.9 Cardiomyopathy, unspecified; E11.22 Type 2 diabetes mellitus with diabetic chronic kidney disease; E11.42 Type 2 diabetes mellitus with diabetic polyneuropathy; N18.6 End stage renal disease; I48.0 Paroxysmal atrial fibrillation; Z68.41 Body mass index [BMI] 40.0-44.9, adult; E66.01 Morbid (severe) obesity due to excess calories; Z79.4 Long term (current) use of insulin; E78.00 Pure hypercholesterolemia, unspecified; I25.10 Atherosclerotic heart disease of native coronary artery without angina pectoris; Z79.82 Long term (current) use of aspirin; G47.33 Obstructive sleep apnea (adult) (pediatric); I25.2 Old myocardial infarction; Z79.02 Long term (current) use of antithrombotics/antiplatelets; Z79.899 Other long term (current) drug therapy; R06.02 Shortness of breath; K21.9 Gastro-esophageal reflux disease without esophagitis; M19.90 Unspecified osteoarthritis, unspecified site
CPT/HCPCS: G0378 ×2; 36415; 71046; 80048; 80053; 80069; 80076; 82962; 83735; 84100; 84443; 84484; 85025; 93005; 94668; 96372; 96374; 96376; 99221; 99285; A4216

== ENCOUNTER → 2023-05-25 | Outpatient (CLI) | payer MEDICARE, MEDICAID, OTHER, SELFPAY ==
[2023-05-25 10:03] LABS: Hemoglobin 9.9 g/dL (13.0-16.5)
== END | disposition home or self-care (01) ==
LOC: LABSPEC 09:59
PROVIDERS: PCP Family Medicine; Visit Provider Internal Medicine Nephrology
DX: N18.6 End stage renal disease (principal)
CPT/HCPCS: 85018

== ENCOUNTER 2023-10-08 15:23 | Inpatient (IN) | payer MEDICARE, OTHER, SELFPAY ==
[2023-10-08] VITALS (9 sets, daily range): BP systolic 104–118; BP diastolic 59–104; PULSE 70–88; RESP 16–23; TEMP 35.5–36.7; O2SAT 87–97; BMI 45.6; BMI 44.6
--- NOTE | 2023-10-08 15:44 | EKG12_ITS ---
Test Reason : Blood Pressure : / mmHG Vent. Rate : 074 BPM Atrial Rate : 074 BPM P-R Int : 138 ms QRS Dur : 090 ms QT Int : 454 ms P-R-T Axes : 044 -31 -54 degrees QTc Int : 503 ms Normal sinus rhythm Left axis deviation Nonspecific ST and T wave abnormality Abnormal ECG Confirmed by GA WILLETT, RADHA ([id number]), managing editor MADYSON YOST ([id number]) on 10/09/2023 8:19:19 AM Referred By: JASS Confirmed By:RADHA KOROMA MD
[2023-10-08 15:56] LABS: Absolute Neutrophil Count 6.8 X10^3/uL (2.0-7.7); Basophil# 0.06 X10^3/uL; Basophil% 0.7 % (0-1); Eosinophil# 0.19 X10^3/uL; Eosinophils% 2.1 % (0-5); Hematocrit 34.2 % (40-54); Hemoglobin 10.8 g/dL (13.0-16.5); Lymphocyte % 11.3 % (19-41); Mean Corp Hgb Conc 31.6 g/dL (32-36); Mean Corpuscular Hgb 26.7 pg (27.0-32.0); Mean Corpuscular Volume 84.7 fL (80-94); Mean Platelet Vol. 9.1 fl (6.2-12.0); Monocyte# 0.74 X10^3/uL; Monocyte% 8.4 % (0-10); NRBC Flagged by Analyzer 0 % (0-5); Neutrophil # 6.81 X10^3/uL (2.7-7.7); Neutrophil % 76.8 % (47-70); Platelet Count 247 K/mm3 (150-450); RBC Distribution Width CV 19.8 % (11.6-14.6); RBC Distribution Width SD 61.4 fl (35.1-43.9); Red Blood Count 4.04 M/mm3 (4.6-6.2); White Blood Count 8.9 K/mm3 (4.4-11.0)
--- NOTE | 2023-10-08 16:10 | ED.VIS.DYS ---
HPI History of Present Illness Chief Complaint: Shortness of Breath Narrative Narrative: .. [facility] Medical History (Updated 06/07/23 @ 14:[address] Reese Bailey MD) Chest pain Non-ST elevation IA (NSTEMI) Atrial flutter Dialysis patient CPAP (continuous positive airway pressure) dependence Pneumonia due to COVID-19 virus Myocardial infarct VERÓNICA (obstructive sleep apnea) Arteriosclerotic cardiovascular disease Dyslipidemia Elevated troponin ESRD on dialysis Wears glasses Wears partial dentures Insulin dependent diabetes mellitus Diabetes High cholesterol Non-smoker COPD (chronic obstructive pulmonary disease) Sleep apnea History of stress test History of echocardiogram Leg cramps Hypertension Cardiology follow-up encounter History of CHF (congestive heart failure) Fistula Hypotension Degenerative disc disease, cervical Diabetes mellitus, type II, insulin dependent Diabetic polyneuropathy (04/2017) GERD (gastroesophageal reflux disease) Chronic kidney disease with end stage renal failure on dialysis Non-ischemic cardiomyopathy Essential (primary) hypertension Syncope (07/2018) Problem with dialysis access Anemia of chronic renal failure, stage 4 (severe) Demand ischemia Morbid obesity Systolic and diastolic CHF, acute Elevated troponin Home Medications ?Medication ?Instructions ?Recorded ?Last Taken ?Type omeprazole 20 mg capsule,delayed 20 mg PO BIDAC gerd 08/08/18 01/22/23 History release blood-glucose meter (FreeStyle #1 ea 12/22/19 Unknown Rx [place] Lite kit) lancets 28 gauge (FreeStyle #100 ea 12/22/19 Unknown Rx Lancets) pen needle, diabetic 32 gauge x #400 ea 12/22/19 Unknown Rx 5/32 (BD Ultra-Fine [place] Pen Needle) albuterol sulfate 90 mcg/actuation 2 puff inhalation Q6H PRN 07/26/21 01/21/23 History aerosol inhaler Shortness Of Breath Or Wheezing atorvastatin 80 mg tablet 80 mg PO QHS CHOLESTEROL 07/26/21 01/21/23 History ezetimibe 10 mg tablet 10 mg PO DAILY HIGH CHOLESTEROL 07/26/21 01/21/23 History insulin detemir U-100 100 unit/mL 40 unit subcut QHS BLOODSUGAR 07/26/21 01/21/23 History (3 mL) subcutaneous pen (Levemir FlexTouch U-100 Insulin) losartan 50 mg tablet 50 mg PO DAILY BLOOD PRESSURE 07/26/21 01/21/23 History sucroferric oxyhydroxide 500 mg 1,500 mg PO TID [facility] 02/20/22 01/21/23 History chewable tablet (Velphoro) insulin aspart U-100 100 unit/mL 15 unit subcut .COMPLEX BLOOD SUGAR 01/22/23 01/21/23 History (3 mL) subcutaneous pen (Novolog FlexPen U-100 Insulin aspart) lanthanum 1,000 mg chewable tablet 3,000 mg PO TIDCM UNKNOWN 01/22/23 01/21/23 History quinine-vitamin E capsule 1 cap PO DAILY CRAMPS 01/22/23 01/21/23 History sertraline 50 mg tablet 50 mg PO DAILY ANTI DEPRESSANT 01/22/23 01/21/23 History trazodone 50 mg tablet 50 mg PO QHS SLEEP 01/22/23 01/21/23 History vitamin B complex-vitamin C-folic 1 tab PO DAILY VITAMIN 01/22/23 01/21/23 History acid 0.8 mg tablet (Leonela-Herbie) clopidogrel 75 mg tablet 75 mg PO DAILY HEART #90 tabs 02/13/23 Unknown Rx dulaglutide 0.75 mg/0.5 mL 0.75 mg subcut QWEEK diabetes 04/10/23 Unknown History subcutaneous pen injector (Trulicity) amlodipine 10 mg tablet 10 mg PO DAILY #30 tabs 04/11/23 Unknown Rx metoprolol succinate 200 mg 200 mg PO BID #60 tabs 04/11/23 Unknown Rx tablet,extended release 24 hr cinacalcet 30 mg tablet 30 mg PO DAILY 05/04/23 Unknown History cinacalcet 60 mg tablet 120 mg PO DAILY 05/04/23 Unknown History furosemide 40 mg tablet 40 mg PO DAILY 05/04/23 Unknown History gabapentin 300 mg capsule 300 mg PO QHS 05/04/23 Unknown History nitroglycerin 0.4 mg sublingual 0.4 mg buccal Q5M PRN chest pain 05/04/23 Unknown History tablet apixaban 5 mg tablet (Eliquis) 5 mg PO BID 60 days #120 tabs 05/06/23 Unknown Rx cholecalciferol (vitamin D3) 1,250 50,000 unit PO QWEEK 06/07/23 Unknown History mcg (50,000 unit) capsule fluticasone propionate 50 2 spray intranasal DAILY #18.2 mL 06/07/23 Unknown Rx mcg/actuation nasal spray,suspension nifedipine 60 mg tablet,extended 60 mg PO DAILY 06/07/23 Unknown History release Allergy/AdvReac Type Severity Reaction Status Date / Time liraglutide (From Victoza) Allergy Unknown unknown Verified 06/07/23 13:57 NSAIDS (Non-Steroidal AdvReac Severe Renal Verified 06/07/23 13:57 Anti-Inflamma failure BLANCA Inhibitors AdvReac Intermediate cough Verified 06/07/23 13:57 Family History Mother Hypertension Grandmother Aneurysm Other NSTEMI, initial episode of care Stented coronary artery Surgical History History of coronary artery stent placement Stented coronary artery (01/23/23) Hx of cardiac catheterization (~01/23/23) History of angioplasty of peripheral vessel (07/2021) Presence of surgically created arteriovenous shunt for hemodialysis (07/2017) Social History household members: spouse housing: house Smoking Status: Never smoker alcohol intake: never substance use type: does not use EXAM Physical Exam Const Vital Signs: 10/08/23 15:24 10/08/23 15:29 10/08/23 15:44 Temperature 96 F L Temperature Source Temporal Pulse Rate 76 Respiratory Rate 23 H Respiratory Effort Short of Breath Blood Pressure 117/104 H Blood Pressure Mean 108 Pulse Ox 94 Oxygen Delivery Method Room Air [facility] Lab Data Labs: Laboratory Results - last 24 hr 10/08/23 15:30 WBC 8.9 RBC 4.04 L Hgb 10.8 L Hct 34.2 L MCV 84.7 MCH 26.7 L MCHC 31.6 L RDW Std Deviation 61.4 H RDW Coeff of Kyle 19.8 H Plt Count 247 MPV 9.1 Immature Gran % (Auto) 0.700 Neut % (Auto) 76.8 H Lymph % (Auto) 11.3 L [place] % (Auto) 8.4 Eos % (Auto) 2.1 Baso % (Auto) 0.7 Absolute Neuts (auto) 6.8 Absolute Lymphs (auto) 1.00 Nucleated RBC % 0 Discharge Plan Triage Chief Complaint: Shortness of Breath ED Midlevel Provider: Niki Wang ED Provider: Angelo Parra Dx/Rx/DC Orders Prescriptions: No Action (DME) blood-glucose meter [FreeStyle [place] Lite] Kit See Rx Instructions .ROUTE .MEDSUPPLY Qty: 1 0RF Rx Instructions: As directed (DME) pen needle, diabetic [BD Ultra-Fine [place] Pen Needle] 32 gauge x 5/32 needle See Rx Instructions .ROUTE .MEDSUPPLY Qty: 400 1RF Rx Instructions: 4 times daily (DME) lancets [FreeStyle Lancets] 28 gauge misc See Rx Instructions .ROUTE .MEDSUPPLY Qty: 100 5RF Rx Instructions: As directed losartan 50 mg tablet 50 mg PO DAILY atorvastatin 80 mg tablet 80 mg PO QHS ezetimibe 10 mg tablet 10 mg PO DAILY albuterol sulfate 90 mcg/actuation HFA aerosol inhaler 2 puff inhalation Q6H PRN (Reason: Shortness Of Breath Or Wheezing) Levemir FlexTouch U100 Insulin 100 unit/mL (3 mL) insulin pen 40 unit subcut QHS clopidogrel 75 mg tablet 75 mg PO DAILY Qty: 90 3RF cholecalciferol (vitamin D3) 1,250 mcg (50,000 unit) capsule 50,000 unit PO QWEEK Patient Comments: take 1 capsule by mouth ONE TIME A WEEK nifedipine 60 mg tablet extended release 60 mg PO DAILY fluticasone propionate 50 mcg/actuation spray,suspension 2 spray intranasal DAILY Qty: 18.2 3RF Rx Instructions: administer into each nostril omeprazole 20 MG capsule,delayed release(DR/EC) 20 mg PO BIDAC Velphoro 500 mg tablet,chewable 1,500 mg PO TID Patient Comments: CHEW & SWALLOW 3 TABLETS THREE TIMES A DAY WITH MEALS Trulicity 0.75 mg/0.5 mL pen injector 0.75 mg SUBCUT QWEEK Patient Comments: Inject 0.75 mg subcutaneously one time a week. Inject dose once per week. Discard Pen After Rx Instructions: pt unsure of dosage amount metoprolol succinate 200 mg Tablet Extended Release 24 Hr 200 mg PO BID Qty: 60 2RF amlodipine 10 mg Tablet 10 mg PO DAILY Qty: 30 2RF Leonela-Herbie 0.8 mg tablet 1 tab PO DAILY trazodone 50 mg tablet 50 mg PO QHS sertraline 50 mg tablet 50 mg PO DAILY lanthanum 1,000 mg tablet,chewable 3,000 mg PO TIDCM quinine-vitamin E Capsule 1 cap PO DAILY insulin aspart U-100 [Novolog FlexPen U-100 Insulin] 100 unit/mL (3 mL) insulin pen 15 unit SC .COMPLEX Rx Instructions: 15 units subcutaneously TID CM cinacalcet 30 mg tablet 30 mg PO DAILY Patient Comments: TAKE 1 TABLET BY MOUTH DAILY WITH 60 MG TABLETS FOR TOTAL DAILY DOSE OF 150 MG cinacalcet 60 mg tablet 120 mg PO DAILY Patient Comments: TAKE 2 TABLETS BY MOUTH DAILY furosemide 40 mg tablet 40 mg PO DAILY Patient Comments: TAKE 1 TABLET BY MOUTH EVERY DAY gabapentin 300 mg capsule 300 mg PO QHS Patient Comments: Take 1 capsule by mouth daily at bedtime nitroglycerin 0.4 mg tablet, sublingual 0.4 mg buccal Q5M PRN (Reason: chest pain) Patient Comments: Dissolve 1 tablet under the tongue every 5 minutes as needed for chest pain. Eliquis 5 mg Tablet 5 mg PO BID 60 Days Qty: 120 0RF Primary Care Provider: Norris Mcqueen Referrals: Norris Mcqueen MD [Primary Care Provider] - Print Language: Portuguese
--- NOTE | 2023-10-08 16:16 | RAD_ITS ---
STUDY: X-RAY CHEST REASON FOR EXAM: Male, 53 years old. SOB TECHNIQUE: Frontal and lateral views of the chest. COMPARISON: 05/04/2023. FINDINGS: The lungs are clear and expanded. Stable minimal scars of the peripheral mid left lung. There is no demonstrated pleural abnormality. Normal size heart. Normal mediastinum and erick. Normal visualized pulmonary arteries. Normal visualized aortic arch and descending thoracic aorta. Normal visualized thoracic spine. Normal visualized ribs, clavicles, and shoulders. There is no demonstrated abnormality of the visualized soft tissue structures of the upper abdomen. RAD/Chest PA and Lateral IMPRESSION: No definite acute or significant abnormality seen. Electronically Signed: Yonatan Haynes MD at 16:47 EDT ,
[2023-10-08 16:20] LABS: Anion Gap 11 (5-15); BUN 54 mg/dL (7-18); BUN/Creat Ratio 4.7 RATIO (10-20); Calcium,Total 8.6 mg/dL (8.5-10.1); Chloride 97 mmol/L (98-107); EST Glomerular Filtration Rate 5 mL/min (>60); Est Glom Filt Rate - Afr Amer 6 mL/min (>60); Estimated Creatinine Clearance 10.26 ml/min; Glucose 131 mg/dL (74-106); Potassium 4.6 mmol/L (3.5-5.1); Sodium Level 134 mmol/L (136-145); Troponin-I HS 23 pg/mL (3.0-78.0)
[2023-10-08 16:25] LABS: BNP,B-Type NATRIURETIC PEPTIDE 1303.6 pg/mL (0-100)
--- NOTE | 2023-10-08 16:35 | EDS_ITS ---
HPI <KAMINI Agudelo - Last Filed: 10/08/23 17:42> History of Present Illness Chief Complaint: Shortness of Breath Narrative Narrative: Patient presenting today due to shortness of breath with exertion that he has had over the past week and a half that worsened today. He did see his PCP, Dr. Mcqueen in the office and did desaturate to the low 80s on room air with ambulation, prompting him to come in for evaluation. He reports that he has had a productive cough with clear phlegm for the past few weeks intermittently but no other cold symptoms. He denies fevers, chills, chest pain, abdominal pain, and vomiting. He reports that he has had loose stools over the past week and a half with no recent antibiotic use or history of C. difficile. He has a PMH of end-stage renal disease on hemodialysis (last hemodialysis was Sunday), DM, HTN, atrial flutter on Eliquis, cardiomyopathy, and previous NSTEMI. PFSH <KAMINI Agudelo - Last Filed: 10/08/23 17:42> [facility] Medical History Chest pain Non-ST elevation TN (NSTEMI) Atrial flutter Dialysis patient CPAP (continuous positive airway pressure) dependence Pneumonia due to COVID-19 virus Myocardial infarct VERÓNICA (obstructive sleep apnea) Arteriosclerotic cardiovascular disease Dyslipidemia Elevated troponin ESRD on dialysis Wears glasses Wears partial dentures Insulin dependent diabetes mellitus Diabetes High cholesterol Non-smoker COPD (chronic obstructive pulmonary disease) Sleep apnea History of stress test History of echocardiogram Leg cramps Hypertension Cardiology follow-up encounter History of CHF (congestive heart failure) Fistula Hypotension Degenerative disc disease, cervical Diabetes mellitus, type II, insulin dependent Diabetic polyneuropathy (04/2017) GERD (gastroesophageal reflux disease) Chronic kidney disease with end stage renal failure on dialysis Non-ischemic cardiomyopathy Essential (primary) hypertension Syncope (07/2018) Problem with dialysis access Anemia of chronic renal failure, stage 4 (severe) Demand ischemia Morbid obesity Systolic and diastolic CHF, acute Elevated troponin Home Medications ?Medication ?Instructions ?Recorded ?Last Taken ?Type omeprazole 20 mg capsule,delayed 20 mg PO BIDAC gerd 08/08/18 01/22/23 History release blood-glucose meter (FreeStyle #1 ea 12/22/19 Unknown Rx Cardinal Lite kit) lancets 28 gauge (FreeStyle #100 ea 12/22/19 Unknown Rx Lancets) pen needle, diabetic 32 gauge x #400 ea 12/22/19 Unknown Rx (BD Ultra-Fine China Pen Needle) albuterol sulfate 90 mcg/actuation 2 puff inhalation Q6H PRN 07/26/21 01/21/23 History aerosol inhaler Shortness Of Breath Or Wheezing atorvastatin 80 mg tablet 80 mg PO QHS CHOLESTEROL 07/26/21 01/21/23 History ezetimibe 10 mg tablet 10 mg PO DAILY HIGH CHOLESTEROL 07/26/21 01/21/23 History insulin detemir U-100 100 unit/mL 40 unit subcut QHS BLOODSUGAR 07/26/21 01/21/23 History (3 mL) subcutaneous pen (Levemir FlexTouch U-100 Insulin) losartan 50 mg tablet 50 mg PO DAILY BLOOD PRESSURE 07/26/21 01/21/23 History sucroferric oxyhydroxide 500 mg 1,500 mg PO TID [facility] 02/20/22 01/21/23 History chewable tablet (Velphoro) insulin aspart U-100 100 unit/mL 15 unit subcut .COMPLEX BLOOD SUGAR 01/22/23 01/21/23 History (3 mL) subcutaneous pen (Novolog FlexPen U-100 Insulin aspart) lanthanum 1,000 mg chewable tablet 3,000 mg PO TIDCM UNKNOWN 01/22/23 01/21/23 History quinine-vitamin E capsule 1 cap PO DAILY CRAMPS 01/22/23 01/21/23 History sertraline 50 mg tablet 50 mg PO DAILY ANTI DEPRESSANT 01/22/23 01/21/23 History trazodone 50 mg tablet 50 mg PO QHS SLEEP 01/22/23 01/21/23 History vitamin B complex-vitamin C-folic 1 tab PO DAILY VITAMIN 01/22/23 01/21/23 History acid 0.8 mg tablet (Leonela-Herbie) clopidogrel 75 mg tablet 75 mg PO DAILY HEART #90 tabs 02/13/23 Unknown Rx dulaglutide 0.75 mg/0.5 mL 0.75 mg subcut QWEEK diabetes 04/10/23 Unknown History subcutaneous pen injector (Trulicity) amlodipine 10 mg tablet 10 mg PO DAILY #30 tabs 04/11/23 Unknown Rx metoprolol succinate 200 mg 200 mg PO BID #60 tabs 04/11/23 Unknown Rx tablet,extended release 24 hr cinacalcet 30 mg tablet 30 mg PO DAILY 05/04/23 Unknown History cinacalcet 60 mg tablet 120 mg PO DAILY 05/04/23 Unknown History furosemide 40 mg tablet 40 mg PO DAILY 05/04/23 Unknown History gabapentin 300 mg capsule 300 mg PO QHS 05/04/23 Unknown History nitroglycerin 0.4 mg sublingual 0.4 mg buccal Q5M PRN chest pain 05/04/23 Unknown History tablet apixaban 5 mg tablet (Eliquis) 5 mg PO BID 60 days #120 tabs 05/06/23 Unknown Rx cholecalciferol (vitamin D3) 1,250 50,000 unit PO QWEEK 06/07/23 Unknown History mcg (50,000 unit) capsule fluticasone propionate 50 2 spray intranasal DAILY #18.2 mL 06/07/23 Unknown Rx mcg/actuation nasal spray,suspension nifedipine 60 mg tablet,extended 60 mg PO DAILY 06/07/23 Unknown History release Allergy/AdvReac Type Severity Reaction Status Date / Time liraglutide (From Victoza) Allergy Unknown unknown Verified 06/07/23 13:57 NSAIDS (Non-Steroidal AdvReac Severe Renal Verified 06/07/23 13:57 Anti-Inflamma failure BLANCA Inhibitors AdvReac Intermediate cough Verified 06/07/23 13:57 Family History Mother Hypertension Grandmother Aneurysm Other NSTEMI, initial episode of care Stented coronary artery Surgical History History of coronary artery stent placement Stented coronary artery (01/23/23) Hx of cardiac catheterization (~01/23/23) History of angioplasty of peripheral vessel (07/2021) Presence of surgically created arteriovenous shunt for hemodialysis (07/2017) Social History household members: spouse housing: house Smoking Status: Never smoker alcohol intake: never substance use type: does not use ROS <KAMINI Agudelo - Last Filed: 10/08/23 17:42> ROS ED Constitutional Constitutional ED: Denies chills or fever(s) Cardiovascular Cardiovascular: Denies chest pain or palpitations Respiratory/Chest Respiratory/Chest: Reports cough, dyspnea and dyspnea on exertion Gastrointestinal Gastrointestinal: Reports diarrhea and nausea; Denies abdominal pain or vomiting Genitourinary Genitourinary ED: Denies dysuria or urinary frequency Musculoskeletal Musculoskeletal: Denies arthralgias or myalgias Integumentary Denies rash Neurologic Neurologic: Denies weakness EXAM <KAMINI Agudelo - Last Filed: 10/08/23 17:42> Physical Exam Const Vital Signs: 10/08/23 15:24 10/08/23 15:29 10/08/23 15:44 Temperature 96 F L Temperature Source Temporal Pulse Rate 76 Respiratory Rate 23 H Respiratory Effort Short of Breath Blood Pressure 117/104 H Blood Pressure Mean 108 Pulse Ox 94 Oxygen Delivery Method Room Air 10/08/23 17:02 Temperature Temperature Source Pulse Rate 88 Respiratory Rate 20 H Respiratory Effort Blood Pressure 118/74 Blood Pressure Mean 88 Pulse Ox 93 Oxygen Delivery Method Room Air <Dr. Angelo Parra, - Last Filed: 10/08/23 17:54> Physical Exam Const Vital Signs: 10/08/23 15:24 10/08/23 15:29 10/08/23 15:44 Temperature 96 F L Temperature Source Temporal Pulse Rate 76 Respiratory Rate 23 H Respiratory Effort Short of Breath Blood Pressure 117/104 H Blood Pressure Mean 108 Pulse Ox 94 Oxygen Delivery Method Room Air 10/08/23 17:02 Temperature Temperature Source Pulse Rate 88 Respiratory Rate 20 H Respiratory Effort Blood Pressure 118/74 Blood Pressure Mean 88 Pulse Ox 93 Oxygen Delivery Method Room Air MDM <KAMINI Agudelo - Last Filed: 10/08/23 17:42> [facility] Narrative Medical decision making narrative: Patient presenting today due to dyspnea with exertion he has had over the past week and a half. He saw his PCP today and did desaturate to the low 80s on room air with walking. We did walk in here and his heart rate did go to 88%. He does feel symptomatic with ambulation. Labs were obtained, he does have a creatinine of 11.6, last dialysis was on Sunday as he missed today. BUN 54. BNP 1303. Troponin 23. Chest x-ray negative for acute findings. Given he is symptomatic with ambulation and desaturating, I feel it is reasonable to admit patient to the hospital given he does not have supplemental O2 at home. I spoke with the hospitalist and he will be admitted in stable condition. Lab Data Attestation: I reviewed the patient's lab results. Lab results narrative: BUN 54, creatinine 11.6, BNP 1303, sodium 134, H&H 9.8 and 34.2 Labs: Laboratory Results - last 24 hr 10/08/23 15:30 WBC 8.9 RBC 4.04 L Hgb 10.8 L Hct 34.2 L MCV 84.7 MCH 26.7 L MCHC 31.6 L RDW Std Deviation 61.4 H RDW Coeff of Kyle 19.8 H Plt Count 247 MPV 9.1 Immature Gran % (Auto) 0.700 Neut % (Auto) 76.8 H Lymph % (Auto) 11.3 L [place] % (Auto) 8.4 Eos % (Auto) 2.1 Baso % (Auto) 0.7 Absolute Neuts (auto) 6.8 Absolute Lymphs (auto) 1.00 Nucleated RBC % 0 Sodium 134 L Potassium 4.6 Chloride 97 L Carbon Dioxide 26.0 Anion Gap 11 BUN 54 H Creatinine 11.60 H* Estim Creat Clear Calc 10.26 Est GFR (MDRD) Af Amer 6 L Est GFR (MDRD) Non-Af 5 L BUN/Creatinine Ratio 4.7 L Glucose 131 H Calcium 8.6 Troponin I High Sens 23 B-Natriuretic Peptide 1303.6 H Radiography X-Ray: Read by ED Physician Diagnostic Testing: Clinical Impression(s) from Imaging Studies Chest X-Ray 10/08/23 16:16 IMPRESSION: No definite acute or significant abnormality seen. Electronically Signed: Yonatan Haynes MD at 16:47 EDT , EKG Initial EKG: Comments: 74 bpm, normal sinus rhythm, left axis deviation, no ST elevation, reviewed and interpreted by attending ED physician <Dr. Angelo Parra, DO - Last Filed: 10/08/23 17:54> [facility] MDM Narrative Medical decision making narrative: Patient presenting today due to dyspnea with exertion he has had over the past week and a half. He saw his PCP today and did desaturate to the low 80s on room air with walking. We did walk in here and his heart rate did go to 88%. He does feel symptomatic with ambulation. Labs were obtained, he does have a creatinine of 11.6, last dialysis was on Sunday as he missed today. BUN 54. BNP 1303. Troponin 23. Chest x-ray negative for acute findings. Given he is symptomatic with ambulation and desaturating, I feel it is reasonable to admit patient to the hospital given he does not have supplemental O2 at home. I spoke with the hospitalist and he will be admitted in stable condition. I have personally performed a face to face assessment of the patient and have reviewed the SOURAV Note. I performed a substantive portion of the visit including all aspects of the following. My dee findings include: History is 53-year-old man on dialysis presenting to the emergency room with dyspnea on exertion and hypoxia. Patient notes recent cough with white to clear sputum. He he states that he has had loose stools over the past several days. He has had little over a week with increasing shortness of breath. He went to see primary care today as he has not been feeling well. They ambulated him and he was noted to be in the low 80s on room air. He does not wear home oxygen. He does wear CPAP and family states that they are considering getting him oxygen to wear with the CPAP. Patient did not go to dialysis today because he was feeling ill. No definitive fevers. Exam is 53-year-old male laying in the bed. He appears in no acute distress. He does not appear to have significant labored breathing. Lung sounds are pretty clear. He is speaking in full sentences. Medical Decison Making my independent interpretation the chest x-ray is no acute process. Hemoglobin 10.8. Creatinine of 11 however his potassium is 4.6 sodium 134. Troponin 23. Patient ambulates here in the department 88%. Plan will be to admit him obtain dialysis we ambulate him to see if he would qualify for home oxygen. Lab Data Labs: Laboratory Results - last 24 hr 10/08/23 15:30 WBC 8.9 RBC 4.04 L Hgb 10.8 L Hct 34.2 L MCV 84.7 MCH 26.7 L MCHC 31.6 L RDW Std Deviation 61.4 H RDW Coeff of Kyle 19.8 H Plt Count 247 MPV 9.1 Immature Gran % (Auto) 0.700 Neut % (Auto) 76.8 H Lymph % (Auto) 11.3 L Amite % (Auto) 8.4 Eos % (Auto) 2.1 Baso % (Auto) 0.7 Absolute Neuts (auto) 6.8 Absolute Lymphs (auto) 1.00 Nucleated RBC % 0 Sodium 134 L Potassium 4.6 Chloride 97 L Carbon Dioxide 26.0 Anion Gap 11 BUN 54 H Creatinine 11.60 H* Estim Creat Clear Calc 10.26 Est GFR (MDRD) Af Amer 6 L Est GFR (MDRD) Non-Af 5 L BUN/Creatinine Ratio 4.7 L Glucose 131 H Calcium 8.6 Troponin I High Sens 23 B-Natriuretic Peptide 1303.6 H Radiography Diagnostic Testing: Clinical Impression(s) from Imaging Studies Chest X-Ray 10/08/23 16:16 IMPRESSION: No definite acute or significant abnormality seen. Electronically Signed: Yonatan Haynes MD at 16:47 EDT , Discharge Plan Dx/Rx/DC Orders Clinical Impression: ESRD on dialysis, Shortness of breath, Hypoxia Disposition Disposition: Acute Care [facility]
[2023-10-08] MEDS: Ondansetron 4 MG/2 ML Vial IV (16:48)
--- NOTE | 2023-10-08 17:21 | NURSING ---
MED SURG OBS OLEGHE HYPOXIA, CKD
--- NOTE | 2023-10-08 18:03 | ECHOD_ITS ---
Reason For Study: CHF Procedure This was a 2D Doppler, Color Flow transthoracic echocardiogram. The study was technically difficult. Due to body habitus. Exam performed in department. Left Ventricle Normal LV size. Severe concentric left ventricular hypertrophy. D shaped septum in diastole. The left ventricular ejection fraction is 45 %. Right Ventricle Moderately dilated right ventricle. Moderate global right ventricular systolic dysfunction. Atria The left atrium is moderately enlarged. The right atrium is severely enlarged. Mitral Valve Bileaflet diffuse mitral valve thickening. There is mild mitral annular calcification. Mild (1+) mitral valve insufficiency. Tricuspid Valve Normal tricuspid valve. Mild (1+) tricuspid valve insufficiency. Aortic Valve Trisinus/trileaflet aortic valve. Mild (1+) aortic valve insufficiency. Pulmonic Valve Normal pulmonic valve. Great Vessels Normal aortic root. Moderate pulmonary artery dilation. The inferior vena cava is dilated. Pericardium/Pleural No pericardial effusion. MMode/2D Measurements & Calculations LVIDd: 5.1 cm IVSd: 1.7 cm LVOT diam: 2.0 cm LVIDs: 4.2 cm LVPWd: 1.6 cm LVOT area: 3.0 cm2 RVDd: 4.5 cm FS: 17.7 % Ao root diam: 2.8 cm LAV(MOD-sp2): 93.2 ml LVAd ap4: 35.2 cm2 LA dimension: 4.1 cm LVLd ap4: 8.2 cm EDV(MOD-sp4): 133.2 ml EDV(sp4-el): 127.6 ml LVAs ap4: 24.5 cm2 LVLs ap4: 7.5 cm ESV(MOD-sp4): 70.7 ml ESV(sp4-el): 68.3 ml EF(MOD-sp4): 46.9 % EF(sp4-el): 46.5 % LVAd ap2: 33.1 cm2 SV(MOD-sp4): 62.5 ml SV(MOD-sp2): 54.2 ml LVLd ap2: 8.8 cm EDV(MOD-sp2): 117.6 ml EDV(sp2-el): 104.9 ml LVAs ap2: 21.9 cm2 LVLs ap2: 7.2 cm ESV(MOD-sp2): 63.4 ml ESV(sp2-el): 56.2 ml EF(MOD-sp2): 46.1 % SV(sp4-el): 59.3 ml LA A4 area: 24.6 cm2 RA A4 area: 30.1 cm2 TAPSE: 1.6 cm Time Measurements MV dec time: 0.20 sec Doppler Measurements & Calculations MV E max john: 61.8 cm/sec Lat Peak E' John: 7.2 cm/sec Med Peak E' John: 3.7 cm/sec MV A max john: 48.2 cm/sec E/E' lat: 8.6 E/E' med: 16.9 MV E/A: 1.3 MV V2 max: 87.0 cm/sec MV P1/2t max john: 93.4 cm/sec Ao V2 max: 113.9 cm/sec MV max P.0 mmHg MV P1/2t: 72.0 msec Ao max P.2 mmHg MV V2 mean: 43.0 cm/sec MV dec slope: 379.6 cm/sec2 Ao V2 mean: 82.2 cm/sec MV mean P.91 mmHg Ao mean P.9 mmHg MV V2 VTI: 22.6 cm MVA(P1/2t): 3.1 cm2 Ao V2 VTI: 21.1 cm MVA(VTI): 2.6 cm2 AV (velocity ratio): 0.91 TARA(I,D): 2.7 cm2 TARA(V,D): 2.7 cm2 LV V1 max: 100.7 cm/sec SV(LVOT): 58.1 ml PA V2 max: 42.3 cm/sec LV V1 max P.1 mmHg PA max PG (full): 0.14 mmHg LV V1 mean P.3 mmHg LV V1 mean: 70.1 cm/sec LV V1 VTI: 19.3 cm PI end-d john: 119.9 cm/sec TR max john: 230.1 cm/sec TR max P.2 mmHg ECHO/Echo Complete Interpretation Summary Normal LV size. Severe concentric left ventricular hypertrophy. The left ventricular ejection fraction is 45 %. Moderately dilated right ventricle. Ordering Physician: Marlee Vidales Referring Physician: Norris Mcqueen Performed By: Lissa Palencia, KYLE, RVT
[2023-10-08] MEDS: Furosemide 100 MG/10 ML Vial 80 MG IV (18:56)
--- NOTE | 2023-10-08 19:10 | PCM.HP.STD ---
HPI - General General Date of Admission: 10/08/23 Date of Service: 10/08/23 Chief Complaint: Worsening shortness of breath and hypoxia HPI Narrative LISA MASTERSON, is a 53 M with a history of congestive heart failure secondary to ischemic cardiomyopathy, coronary disease status post stents, morbid obesity, sleep apnea on CPAP, hypertension and end-stage renal disease on hemodialysis. Patient presents to the hospital with several months history of worsening exertional dyspnea, easy fatigability, orthopnea and poor excess tolerance. Patient's spouse at the bedside notes that patient typically has oxygen saturations in the high 80s at home. Presented to his primary care provider's office today where with ambulation was noted to be in the low 80s and so patient was sent to the emergency department. Patient denies any chest pain or discomfort. Denies any palpitations. Does admit to intermittent episodes of diaphoresis and nausea with her last several minutes and sometimes up to an hour. [facility] Medical History Anxiety Atrial fibrillation Chest pain Non-ST elevation [place] (NSTEMI) Atrial flutter Dialysis patient CPAP (continuous positive airway pressure) dependence Pneumonia due to COVID-19 virus Myocardial infarct VERÓNICA (obstructive sleep apnea) Arteriosclerotic cardiovascular disease Dyslipidemia Elevated troponin ESRD on dialysis Wears glasses Wears partial dentures Insulin dependent diabetes mellitus Diabetes High cholesterol Non-smoker COPD (chronic obstructive pulmonary disease) Sleep apnea History of stress test History of echocardiogram Leg cramps Hypertension Cardiology follow-up encounter History of CHF (congestive heart failure) Fistula Hypotension Degenerative disc disease, cervical Diabetes mellitus, type II, insulin dependent Diabetic polyneuropathy (04/2017) GERD (gastroesophageal reflux disease) Chronic kidney disease with end stage renal failure on dialysis Non-ischemic cardiomyopathy Essential (primary) hypertension Syncope (07/2018) Problem with dialysis access Anemia of chronic renal failure, stage 4 (severe) Demand ischemia Morbid obesity Systolic and diastolic CHF, acute Elevated troponin Home Medications ?Medication ?Instructions ?Recorded ?Last Taken ?Type omeprazole 20 mg capsule,delayed 20 mg PO BIDAC gerd 08/08/18 10/08/23 History release blood-glucose meter (FreeStyle #1 ea 12/22/19 Unknown Rx [place] Lite kit) lancets 28 gauge (FreeStyle #100 ea 12/22/19 Unknown Rx Lancets) pen needle, diabetic 32 gauge x #400 ea 12/22/19 Unknown Rx (BD Ultra-Fine [place] Pen Needle) albuterol sulfate 90 mcg/actuation 2 puff inhalation Q6H PRN 07/26/21 01/21/23 History aerosol inhaler Shortness Of Breath Or Wheezing atorvastatin 80 mg tablet 80 mg PO QHS CHOLESTEROL 07/26/21 01/21/23 History ezetimibe 10 mg tablet 10 mg PO DAILY HIGH CHOLESTEROL 07/26/21 01/21/23 History insulin detemir U-100 100 unit/mL 40 unit subcut QHS BLOODSUGAR 07/26/21 01/21/23 History (3 mL) subcutaneous pen (Levemir FlexTouch U-100 Insulin) losartan 50 mg tablet 50 mg PO DAILY BLOOD PRESSURE 07/26/21 10/08/23 History sucroferric oxyhydroxide 500 mg 1,500 mg PO TID KIDNEY HEALTH 02/20/22 10/08/23 History chewable tablet (Velphoro) insulin aspart U-100 100 unit/mL 15 unit subcut .COMPLEX BLOOD SUGAR 01/22/23 01/21/23 History (3 mL) subcutaneous pen (Novolog FlexPen U-100 Insulin aspart) lanthanum 1,000 mg chewable tablet 3,000 mg PO TIDCM for kidneys 01/22/23 01/21/23 History quinine-vitamin E capsule 1 cap PO DAILY CRAMPS 01/22/23 10/08/23 History sertraline 50 mg tablet 50 mg PO DAILY ANTI DEPRESSANT 01/22/23 10/08/23 History trazodone 50 mg tablet 50 mg PO QHS SLEEP 01/22/23 10/07/23 History vitamin B complex-vitamin C-folic 1 tab PO DAILY VITAMIN 01/22/23 10/08/23 History acid 0.8 mg tablet (Leonela-Herbie) clopidogrel 75 mg tablet 75 mg PO DAILY HEART #90 tabs 02/13/23 Unknown Rx dulaglutide 0.75 mg/0.5 mL 0.75 mg subcut QWEEK diabetes 04/10/23 Unknown History subcutaneous pen injector (Trulicity) amlodipine 10 mg tablet 10 mg PO DAILY #30 tabs 04/11/23 Unknown Rx metoprolol succinate 200 mg 200 mg PO BID #60 tabs 04/11/23 10/08/23 Rx tablet,extended release 24 hr cinacalcet 30 mg tablet 30 mg PO DAILY 05/04/23 Unknown History cinacalcet 60 mg tablet 120 mg PO DAILY 05/04/23 Unknown History furosemide 40 mg tablet 40 mg PO DAILY 05/04/23 Unknown History gabapentin 300 mg capsule 300 mg PO QHS 05/04/23 Unknown History nitroglycerin 0.4 mg sublingual 0.4 mg buccal Q5M PRN chest pain 05/04/23 Unknown History tablet apixaban 5 mg tablet (Eliquis) 5 mg PO BID 60 days #120 tabs 05/06/23 Unknown Rx cholecalciferol (vitamin D3) 1,250 50,000 unit PO QWEEK 06/07/23 Unknown History mcg (50,000 unit) capsule fluticasone propionate 50 2 spray intranasal DAILY #18.2 mL 06/07/23 Unknown Rx mcg/actuation nasal spray,suspension nifedipine 60 mg tablet,extended 60 mg PO DAILY 06/07/23 10/08/23 History release Allergy/AdvReac Type Severity Reaction Status Date / Time liraglutide (From Victoza) Allergy Unknown unknown Verified 06/07/23 13:57 NSAIDS (Non-Steroidal AdvReac Severe Renal Verified 06/07/23 13:57 Anti-Inflamma failure BLANCA Inhibitors AdvReac Intermediate cough Verified 06/07/23 13:57 Family History Mother Hypertension Grandmother Aneurysm Other NSTEMI, initial episode of care Stented coronary artery Surgical History History of coronary artery stent placement Stented coronary artery (01/23/23) Hx of cardiac catheterization (~01/23/23) History of angioplasty of peripheral vessel (07/2021) Presence of surgically created arteriovenous shunt for hemodialysis (07/2017) Social History household members: spouse housing: house Smoking Status: Never smoker alcohol intake: never substance use type: does not use ROS ROS Narrative Denies any chest pain abdominal pain or fever or chills. All other systems reviewed and essentially negative as above in the body history Vital Signs Vital Signs Vital Signs: 10/08/23 15:24 10/08/23 15:29 10/08/23 15:44 Temperature 35.5 C L Temperature Source Temporal Pulse Rate 76 Respiratory Rate 23 H Respiratory Effort Short of Breath Blood Pressure 117/104 H Blood Pressure Mean 108 Pulse Ox 94 Oxygen Delivery Method Room Air Oxygen Flow Rate (L/min) 10/08/23 17:02 10/08/23 17:17 10/08/23 17:18 Temperature Temperature Source Pulse Rate 88 Respiratory Rate 20 H Respiratory Effort Blood Pressure 118/74 Blood Pressure Mean 88 Pulse Ox 93 87 94 Oxygen Delivery Method Room Air Room Air Nasal Cannula Oxygen Flow Rate (L/min) 2 10/08/23 18:06 10/08/23 18:54 Temperature 36.4 C L 36.7 C Temperature Source Temporal Pulse Rate 88 70 Respiratory Rate 18 16 Respiratory Effort Blood Pressure 118/75 104/75 Blood Pressure Mean 89 84 Pulse Ox 95 97 Oxygen Delivery Method Nasal Cannula Oxygen Flow Rate (L/min) 2 Weight Weight: 137 kg Body Mass Index (BMI) 44.6 Results Medical Records Data Attestation: I reviewed the patient's medical records Lab / Micro Data Attestation: I reviewed the patient's lab results. 10/08/23 15:30 10/08/23 15:30 Labs: Laboratory Results - last 24 hr 10/08/23 15:30: WBC 8.9, RBC 4.04 L, Hgb 10.8 L, Hct 34.2 L, MCV 84.7, MCH 26.7 L, MCHC 31.6 L, RDW Std Deviation 61.4 H, RDW Coeff of Kyle 19.8 H, Plt Count 247, MPV 9.1, Immature Gran % (Auto) 0.700, Neut % (Auto) 76.8 H, Lymph % (Auto) 11.3 L, [place] % (Auto) 8.4, Eos % (Auto) 2.1, Baso % (Auto) 0.7, Absolute Neuts (auto) 6.8, Absolute Lymphs (auto) 1.00, Nucleated RBC % 0, Sodium 134 L, Potassium 4.6, Chloride 97 L, Carbon Dioxide 26.0, Anion Gap 11, BUN 54 H, Creatinine 11.60 H*, Estim Creat Clear Calc 10.26, Est GFR (MDRD) Af Amer 6 L, Est GFR (MDRD) Non-Af 5 L, BUN/Creatinine Ratio 4.7 L, Glucose 131 H, Calcium 8.6, Troponin I High Sens 23, B-Natriuretic Peptide 1303.6 H Imaging Radiology Impression Chest X-Ray 10/08/23 16:16 IMPRESSION: No definite acute or significant abnormality seen. Electronically Signed: Yonatan Haynes MD at 16:47 EDT , Assessment & Plan Assessment/Plan (1) Hypoxia: PLAN: Plan 1. Hypoxia. Per the history provided from the spouse this appears to be chronic and not particularly of new onset. Most likely secondary to pulmonary edema from congestive heart failure and end-stage renal disease. Provide oxygen supplementation to keep oxygen saturations above 94%. 2. Congestive heart failure. Appears to be acute on chronic congestive heart failure with midrange ejection fraction secondary to ischemic cardiomyopathy and hypertensive heart disease. End-stage renal disease is definitely contributing to exacerbation of heart failure. Patient has known multivessel coronary artery disease status post stents. Potentially ongoing ischemic heart disease may be contributing to congestive heart failure symptoms and refractoriness. Episodes of diaphoresis and nausea potentially may be symptoms of unstable angina. May benefit from stress test and possible left heart catheterization. Will consult cardiology. Order stress test for tomorrow morning. Keep patient n.p.o. after midnight. Echocardiogram. As part of management of heart failure patient will most likely need more ultrafiltration during hemodialysis than he is currently getting and may benefit from the addition of loop diuretics given that patient still makes urine. Will start patient on IV Lasix 80 mg every 12 hours. 3. Ischemic heart disease with history of coronary disease and stents. See treatment as outlined above. 4. End-stage renal disease on hemodialysis. Will consult nephrology for continuation of in-house hemodialysis. 5. Hypertension. 6. Morbid obesity. Lifestyle modifications as able. 7. Obstructive sleep apnea. CPAP at nighttime with naps. 8. Type 2 diabetes. Resume insulin regimen from home. Accu-Cheks before meals and at bedtime. Charges/Coding Visit Charges Inpatient E&M: 48416 Init Hosp L3
[2023-10-08] MEDS: traZODone 50 MG Tablet PO (21:50)
[2023-10-08] MEDS: APIXABAN 5 MG TABLET PO (21:50)
[2023-10-08] MEDS: Atorvastatin Calcium 80 MG Tablet PO (21:50)
[2023-10-08] MEDS: Insulin Glargine-YFGN 100 UNIT/ML Pen 40 UNIT SC (21:50)
[2023-10-08] MEDS: Cinacalcet HCl 30 MG Tablet PO (21:50)
[2023-10-08] MEDS: Gabapentin 300 MG Capsule PO (21:50)
[2023-10-08] MEDS: Metoprolol(XL)Succ 200 MG Tablet PO (21:51)
[2023-10-08 22:34] LABS: Bedside Glucose 130 mg/dL (74-106)
[2023-10-09] VITALS (14 sets, daily range): BP systolic 110–243; BP diastolic 67–104; PULSE 60–77; RESP 14–18; TEMP 36–36.8; O2SAT 90–100; BMI 43.4; BMI 42.9
--- NOTE | 2023-10-09 01:40 | CPS ---
Patient wears CPAP +12 at home but does not want to use one of our units during his stay. RT made patient aware that it was okay for him to have his brought in from home if that was something he would be interested in doing. He wants to remain on his 2L of oxygen rather than a CPAP at this time.
[2023-10-09 06:02] LABS: Absolute Neutrophil Count 7.2 X10^3/uL (2.0-7.7); Basophil# 0.08 X10^3/uL; Basophil% 0.8 % (0-1); Eosinophil# 0.33 X10^3/uL; Eosinophils% 3.2 % (0-5); Hematocrit 34.7 % (40-54); Hemoglobin 10.8 g/dL (13.0-16.5); Lymphocyte % 14.7 % (19-41); Mean Corp Hgb Conc 31.1 g/dL (32-36); Mean Corpuscular Hgb 26.8 pg (27.0-32.0); Mean Corpuscular Volume 86.1 fL (80-94); Monocyte# 1.07 X10^3/uL; Monocyte% 10.5 % (0-10); NRBC Flagged by Analyzer 0.3 % (0-5); Neutrophil # 7.19 X10^3/uL (2.7-7.7); Neutrophil % 70.2 % (47-70); POSITIVE MORPHOLOGY YES; Platelet Count 282 K/mm3 (150-450); RBC Distribution Width CV 20.1 % (11.6-14.6); RBC Distribution Width SD 61.8 fl (35.1-43.9); Red Blood Count 4.03 M/mm3 (4.6-6.2); White Blood Count 10.2 K/mm3 (4.4-11.0)
[2023-10-09 06:16] LABS: Differential Indicated SCAN CRITERIA MET
[2023-10-09 06:44] LABS: Anisocytosis 2+
[2023-10-09 06:45] LABS: Troponin-I HS 20 pg/mL (3.0-78.0)
[2023-10-09 07:23] LABS: Anion Gap 9 (5-15); BUN 63 mg/dL (7-18); Calcium,Total 8.4 mg/dL (8.5-10.1); Chloride 98 mmol/L (98-107); EST Glomerular Filtration Rate 5 mL/min (>60); Est Glom Filt Rate - Afr Amer 5 mL/min (>60); Glucose 57 mg/dL (74-106); Phosphorus 8.3 mg/dL (2.5-4.9); Potassium 5.2 mmol/L (3.5-5.1); Sodium Level 134 mmol/L (136-145)
--- NOTE | 2023-10-09 10:05 | PCM.CONS.C ---
Assessment & Plan Assessment/Plan (1) Coronary artery disease: PLAN: He does have evidence of coronary artery disease. His cardiac enzymes at this particular time were noted to be normal. He underwent a pharmacologic stress test which demonstrated no evidence of ischemia. My recommendation is for him to continue the current medical therapy. (2) Shortness of breath: PLAN: He does have a history of a cardiomyopathy which is a combination of ischemic and nonischemic cardiomyopathy. His ejection fraction was noted to be mildly reduced. His natruretic peptide is elevated. My recommendation at this time is for him to have a dialysis session and then we see how he does. (3) Paroxysmal atrial fibrillation: PLAN: He does have a history of paroxysmal atrial fibrillation. He appears to be doing well at this time I would not make any changes. (4) Cardiomyopathy: QUALIFIERS: Cardiomyopathy type: unspecified Qualified Code(s): I42.9 - Cardiomyopathy, unspecified PLAN: He does have a history of a cardiomyopathy and we will continue to follow this. (5) Hypertension: PLAN: His blood pressure appears to be under decent control I would not make any major recommendations at this particular time. HPI Consult Data Date of Consult: 10/09/23 HPI Narrative HPI Narrative: LISA MASTERSON, is a 53 M who presents with exertional shortness of breath due for dialysis who was admitted with a diagnosis of congestive heart failure. He has a history of hypertension, end-stage renal disease currently on dialysis, cardiomyopathy presumably hypertensive heart disease. He was recently seen by the criminal intelligence analyst and his Norvasc was discontinued. He does have a history of global hypokinesis with an estimated ejection fraction of 45% with mild left atrial enlargement. He presented to the emergency room on 01/22/2023 with complaints of a racing heartbeat and chest discomfort radiating down his left upper extremity. His troponins came back elevated, and he was admitted to the hospital for further evaluation. He underwent a cardiac catheterization on 01/23/2023, which demonstrated 80% stenosis Prox OM2; 70% stenosis in the Mid LCX, 60% stenosis in his Prox LAD, 50% stenosis in the Prox RCA (non-dominant), and 100% stenosis in his Prox OM1 (small 2 mm vessel). He did undergo lithotripsy and ALISON to the mid LCX in the the OM2. After his last office visit to the [facility] offices he said that he was switching to [facility] cardiology service and has done that. We therefore do not have any more records on the above. He denies any chest pain or paroxysmal nocturnal dyspnea he has been undergoing his dialysis 3 times a week. [facility] Medical History Anxiety Atrial fibrillation Chest pain Non-ST elevation [place] (NSTEMI) Atrial flutter Dialysis patient CPAP (continuous positive airway pressure) dependence Pneumonia due to COVID-19 virus Myocardial infarct VERÓNICA (obstructive sleep apnea) Arteriosclerotic cardiovascular disease Dyslipidemia Elevated troponin ESRD on dialysis Wears glasses Wears partial dentures Insulin dependent diabetes mellitus Diabetes High cholesterol Non-smoker COPD (chronic obstructive pulmonary disease) Sleep apnea History of stress test History of echocardiogram Leg cramps Hypertension Cardiology follow-up encounter History of CHF (congestive heart failure) Fistula Hypotension Degenerative disc disease, cervical Diabetes mellitus, type II, insulin dependent Diabetic polyneuropathy (04/2017) GERD (gastroesophageal reflux disease) Chronic kidney disease with end stage renal failure on dialysis Non-ischemic cardiomyopathy Essential (primary) hypertension Syncope (07/2018) Problem with dialysis access Anemia of chronic renal failure, stage 4 (severe) Demand ischemia Morbid obesity Systolic and diastolic CHF, acute Elevated troponin Home Medications ?Medication ?Instructions ?Recorded ?Last Taken ?Type omeprazole 20 mg capsule,delayed 20 mg PO BIDAC gerd 08/08/18 10/08/23 History release blood-glucose meter (FreeStyle #1 ea 12/22/19 Unknown Rx [place] Lite kit) lancets 28 gauge (FreeStyle #100 ea 12/22/19 Unknown Rx Lancets) pen needle, diabetic 32 gauge x #400 ea 12/22/19 Unknown Rx (BD Ultra-Fine [place] Pen Needle) albuterol sulfate 90 mcg/actuation 2 puff inhalation Q6H PRN 07/26/21 01/21/23 History aerosol inhaler Shortness Of Breath Or Wheezing atorvastatin 80 mg tablet 80 mg PO QHS CHOLESTEROL 07/26/21 01/21/23 History ezetimibe 10 mg tablet 10 mg PO DAILY HIGH CHOLESTEROL 07/26/21 01/21/23 History insulin detemir U-100 100 unit/mL 40 unit subcut QHS BLOODSUGAR 07/26/21 01/21/23 History (3 mL) subcutaneous pen (Levemir FlexTouch U-100 Insulin) losartan 50 mg tablet 50 mg PO DAILY BLOOD PRESSURE 07/26/21 10/08/23 History sucroferric oxyhydroxide 500 mg 1,500 mg PO TID KIDNEY HEALTH 02/20/22 10/08/23 History chewable tablet (Velphoro) insulin aspart U-100 100 unit/mL 15 unit subcut .COMPLEX BLOOD SUGAR 01/22/23 01/21/23 History (3 mL) subcutaneous pen (Novolog FlexPen U-100 Insulin aspart) lanthanum 1,000 mg chewable tablet 3,000 mg PO TIDCM for kidneys 01/22/23 01/21/23 History quinine-vitamin E capsule 1 cap PO DAILY CRAMPS 01/22/23 10/08/23 History sertraline 50 mg tablet 50 mg PO DAILY ANTI DEPRESSANT 01/22/23 10/08/23 History trazodone 50 mg tablet 50 mg PO QHS SLEEP 01/22/23 10/07/23 History vitamin B complex-vitamin C-folic 1 tab PO DAILY VITAMIN 01/22/23 10/08/23 History acid 0.8 mg tablet (Leonela-Herbie) clopidogrel 75 mg tablet 75 mg PO DAILY HEART #90 tabs 02/13/23 Unknown Rx dulaglutide 0.75 mg/0.5 mL 0.75 mg subcut QWEEK diabetes 04/10/23 Unknown History subcutaneous pen injector (Trulicity) amlodipine 10 mg tablet 10 mg PO DAILY #30 tabs 04/11/23 Unknown Rx metoprolol succinate 200 mg 200 mg PO BID #60 tabs 04/11/23 10/08/23 Rx tablet,extended release 24 hr cinacalcet 30 mg tablet 30 mg PO DAILY 05/04/23 Unknown History cinacalcet 60 mg tablet 120 mg PO DAILY 05/04/23 Unknown History furosemide 40 mg tablet 40 mg PO DAILY 05/04/23 Unknown History gabapentin 300 mg capsule 300 mg PO QHS 05/04/23 Unknown History nitroglycerin 0.4 mg sublingual 0.4 mg buccal Q5M PRN chest pain 05/04/23 Unknown History tablet apixaban 5 mg tablet (Eliquis) 5 mg PO BID 60 days #120 tabs 05/06/23 Unknown Rx cholecalciferol (vitamin D3) 1,250 50,000 unit PO QWEEK 06/07/23 Unknown History mcg (50,000 unit) capsule fluticasone propionate 50 2 spray intranasal DAILY #18.2 mL 06/07/23 Unknown Rx mcg/actuation nasal spray,suspension nifedipine 60 mg tablet,extended 60 mg PO DAILY 06/07/23 10/08/23 History release Allergy/AdvReac Type Severity Reaction Status Date / Time liraglutide (From Victoza) Allergy Unknown unknown Verified 06/07/23 13:57 NSAIDS (Non-Steroidal AdvReac Severe Renal Verified 06/07/23 13:57 Anti-Inflamma failure BLANCA Inhibitors AdvReac Intermediate cough Verified 06/07/23 13:57 Family History Mother Hypertension Grandmother Aneurysm Other NSTEMI, initial episode of care Stented coronary artery Surgical History History of coronary artery stent placement Stented coronary artery (01/23/23) Hx of cardiac catheterization (~01/23/23) History of angioplasty of peripheral vessel (07/2021) Presence of surgically created arteriovenous shunt for hemodialysis (07/2017) Social History household members: spouse housing: house Smoking Status: Never smoker alcohol intake: never substance use type: does not use ROS Constitutional Constitutional: Denies fever(s) or weight loss Eyes Eyes: Reports systems reviewed and no addt'l complaints, except as documented ENT HEENT: Reports systems reviewed and no addt'l complaints, except as documented Cardiovascular Cardiovascular: Denies chest pain at rest, chest pain with activity, dyspnea at rest, dyspnea on exertion, edema, palpitations or paroxysmal nocturnal dyspnea Respiratory/Chest Respiratory/Chest: Denies dyspnea on exertion, productive cough, shortness of breath at rest or shortness of breath with exertion Gastrointestinal Gastrointestinal: Denies change in bowel habits, nausea, vomiting or weight changes Genitourinary Genitourinary: Denies difficulty urinating Musculoskeletal Musculoskeletal: Denies joint stiffness or muscle weakness Integumentary Integumentary: Denies lesions Neurologic Neurologic: Denies dizziness or syncope Psychiatric Psychiatric: Denies anxiety Endocrine Endocrinology: Denies excessive sweating or fatigue Hematologic/Lymphatic Hematologic/Lymphatic: Denies anemia Allergic/Immunologic Allergic/Immunologic: Denies seasonal rhinorrhea Physical Exam Const alert, oriented x3 and no apparent distress General Appearance: cooperative HEENT hearing grossly normal bilaterally Head and Scalp: atraumatic Eyes EOMs intact bilaterally Neck General: normal visual inspection Chest inspection of chest normal and palpation of chest normal Resp normal respiratory effort Auscultation: clear to auscultation bilaterally Cardio regular rate, regular rhythm, S1 normal heart sound and S2 normal heart sound Jugular Venous Distention: JVD GI normal to inspection, nondistended, normoactive bowel sounds Extremity normal capillary refill and no pedal edema Peripheral Pulses: Yes pulses 2+ throughout and femoral pulses present Skin no rashes or lesions noted Neuro oriented x3 and CN's II-XII intact bilaterally Psych Appearance: grossly normal and appropriate Risk Stratification Risk Stratification Applicable: No Objective Data Vital Signs: Vital Signs Temp Pulse Resp BP Pulse Ox O2 Del Method O2 Flow Rate 97.8 F 74 18 125/89 H 93 Nasal Cannula 2 10/09/23 04:38 10/09/23 04:38 10/09/23 04:38 10/09/23 04:38 10/09/23 08:46 10/09/23 08:46 10/09/23 08:46 Oxygen Flow Rate (L/min) 2 Oxygen Delivery Method Nasal Cannula Weight: 302 lb 0.533 oz Body Mass Index (BMI) 44.6 Intake & Output: Intake and Output for Last 24 Hours 10/07/23 10/08/23 10/09/23 23:59 23:59 23:59 Intake Total 480 / 480 Balance 480 / 480 Lab / Micro Data 10/09/23 05:48 10/09/23 05:48 Labs: Laboratory Results - last 24 hr 10/08/23 15:30: WBC 8.9, RBC 4.04 L, Hgb 10.8 L, Hct 34.2 L, MCV 84.7, MCH 26.7 L, MCHC 31.6 L, RDW Std Deviation 61.4 H, RDW Coeff of Kyle 19.8 H, Plt Count 247, MPV 9.1, Immature Gran % (Auto) 0.700, Neut % (Auto) 76.8 H, Lymph % (Auto) 11.3 L, [place] % (Auto) 8.4, Eos % (Auto) 2.1, Baso % (Auto) 0.7, Absolute Neuts (auto) 6.8, Absolute Lymphs (auto) 1.00, Nucleated RBC % 0, Sodium 134 L, Potassium 4.6, Chloride 97 L, Carbon Dioxide 26.0, Anion Gap 11, BUN 54 H, Creatinine 11.60 H*, Estim Creat Clear Calc 10.26, Est GFR (MDRD) Af Amer 6 L, Est GFR (MDRD) Non-Af 5 L, BUN/Creatinine Ratio 4.7 L, Glucose 131 H, Calcium 8.6, Troponin I High Sens 23, B-Natriuretic Peptide 1303.6 H 10/08/23 21:42: POC Glucose 130 H 10/09/23 05:48: WBC 10.2, RBC 4.03 L, Hgb 10.8 L, Hct 34.7 L, MCV 86.1, MCH 26.8 L, MCHC 31.1 L, RDW Std Deviation 61.8 H, RDW Coeff of Kyle 20.1 H, Plt Count 282, MPV 9.0, Immature Gran % (Auto) 0.600, Neut % (Auto) 70.2 H, Lymph % (Auto) 14.7 L, [place] % (Auto) 10.5 H, Eos % (Auto) 3.2, Baso % (Auto) 0.8, Absolute Neuts (auto) 7.2, Absolute Lymphs (auto) 1.50, Nucleated RBC % 0.3, Anisocytosis 2+, Sodium 134 L, Potassium 5.2 H, Chloride 98, Carbon Dioxide 27.0, Anion Gap 9, BUN 63 H, Creatinine 12.50 H*, Estim Creat Clear Calc 9.40, Est GFR (MDRD) Af Amer 5 L, Est GFR (MDRD) Non-Af 5 L, BUN/Creatinine Ratio 5.0 L, Glucose 57 L, Calcium 8.4 L, Phosphorus 8.3 H, Troponin I High Sens 20 Cardiology Labs/Tests 10/08/23 15:30: WBC 8.9, RBC 4.04 L, Hgb 10.8 L, Hct 34.2 L, MCV 84.7, MCH 26.7 L, MCHC 31.6 L, Plt Count 247, MPV 9.1, Immature Gran % (Auto) 0.700, Neut % (Auto) 76.8 H, Lymph % (Auto) 11.3 L, [place] % (Auto) 8.4, Eos % (Auto) 2.1, Baso % (Auto) 0.7, Absolute Neuts (auto) 6.8, Nucleated RBC % 0, Sodium 134 L, Potassium 4.6, Chloride 97 L, Carbon Dioxide 26.0, Anion Gap 11, BUN 54 H, Creatinine 11.60 H*, Est GFR (MDRD) Af Amer 6 L, Est GFR (MDRD) Non-Af 5 L, BUN/Creatinine Ratio 4.7 L, Glucose 131 H, Calcium 8.6, B-Natriuretic Peptide 1303.6 H 10/09/23 05:48: WBC 10.2, RBC 4.03 L, Hgb 10.8 L, Hct 34.7 L, MCV 86.1, MCH 26.8 L, MCHC 31.1 L, Plt Count 282, MPV 9.0, Immature Gran % (Auto) 0.600, Neut % (Auto) 70.2 H, Lymph % (Auto) 14.7 L, [place] % (Auto) 10.5 H, Eos % (Auto) 3.2, Baso % (Auto) 0.8, Absolute Neuts (auto) 7.2, Nucleated RBC % 0.3, Sodium 134 L, Potassium 5.2 H, Chloride 98, Carbon Dioxide 27.0, Anion Gap 9, BUN 63 H, Creatinine 12.50 H*, Est GFR (MDRD) Af Amer 5 L, Est GFR (MDRD) Non-Af 5 L, BUN/Creatinine Ratio 5.0 L, Glucose 57 L, Calcium 8.4 L, Phosphorus 8.3 H Rhythm: EKG: ECHO: Stress Test: No evidence of ischemia noted Cardiac Cath: PCI: CT Surgery: Holter monitor: EPS: PPM: CXR: Chest CT Scan: Radiography Diagnostic Testing: Radiology Impression Chest X-Ray 10/08/23 16:16 IMPRESSION: No definite acute or significant abnormality seen. Electronically Signed: Yonatan Haynes MD at 16:47 EDT ,
--- NOTE | 2023-10-09 10:44 | STRESSREP ---
Stress Test Report Pharmacologic myocardial perfusion stress test. 53-year-old male with a history of shortness of breath Resting EKG demonstrates sinus rhythm with a rate of 65 bpm. Resting blood pressure is 124/70 mmHg. 0.4 mg of regadenoson was infused per usual protocol followed by rapid intravenous saline flush injection. Continuous EKG monitoring was performed. The maximum heart rate was 68 bpm which was 40% of max impacted heart rate the maximum workload was 1 metabolic equivalent. At rest there were no ST or T wave changes noted to suggest ischemia and at peak infusion nonspecific ST changes were noted which did not meet the criteria for ischemia. No clinical angina is noted. The final blood pressure was 114/74 mmHg. Myocardial perfusion protocol. 14.9 mCi of technetium 99m sestamibi was injected at rest. 0.4 mg of regadenoson was infused per usual protocol. At peak infusion 45 mCi of technetium 99m sestamibi was injected stress images were obtained stress and rest images were reconstructed and compared in the short axis vertical long and horizontal long axis. Gated images were also obtained. Perfusion SPECT analysis: Review of the stress images demonstrate normal uptake of tracer noted in all areas of the myocardium. The resting images similar demonstrated normal uptake of tracer noted in all areas of the myocardium. No areas of reversibility are noted to suggest ischemia and no previous infarct is noted. Gated SPECT analysis: The gated ejection fraction is [normal ]. Conclusion: Normal pharmacologic myocardial perfusion stress test. Preserved ejection fraction.
--- NOTE | 2023-10-09 11:22 | PCM.CONS.R ---
Assessment & Plan Assessment/Plan (1) ESRD on dialysis: (2) Shortness of breath: (3) Hypoxia: PLAN: Plan This is a 53-year-old male with past medical history significant for ESRD, coronary artery disease, cardiomyopathy who presented with complaints of shortness of breath, admitted for further evaluation and treatment. Cardiology has been consulted, patient underwent stress test this morning. Troponin level 20. Patient did undergo hemodialysis today as he missed his dialysis session yesterday, we will attempt fluid removal as patient/blood pressure tolerates, will dialyze on 2K bath (K+ 5.2). Plan for hemodialysis again tomorrow with fluid removal as patient/blood pressure tolerates. Recently patient has had cramping with dialysis therefore limiting fluid removal amount. May be able to lower dry weight if patient tolerates fluid removal. Blood pressures currently low-normal on Toprol XL and losartan. Patient has history of anemia of chronic disease, hemoglobin is 10.8. Further orders forthcoming as hospitalization evolves, thank you for allowing us to participate in the care of Mr. Yung. HPI Consult Data Date of Consult: 10/09/23 HPI Narrative HPI Narrative: LISA YUNG, is a 53 M with past medical history significant for ESRD on hemodialysis Sunday, last dialyzed Sunday who presented to the emergency room yesterday with complaints of worsening shortness of breath. Admitted for further evaluation and treatment. Nephrology consulted as patient has history of ESRD, for hemodialysis today. Cardiology consulted, patient just returned from stress test. Patient denies any chest pain. [facility], [facility] Medical History Anxiety Atrial fibrillation Chest pain Non-ST elevation ME (NSTEMI) Atrial flutter Dialysis patient CPAP (continuous positive airway pressure) dependence Pneumonia due to COVID-19 virus Myocardial infarct VERÓNICA (obstructive sleep apnea) Arteriosclerotic cardiovascular disease Dyslipidemia Elevated troponin ESRD on dialysis Wears glasses Wears partial dentures Insulin dependent diabetes mellitus Diabetes High cholesterol Non-smoker COPD (chronic obstructive pulmonary disease) Sleep apnea History of stress test History of echocardiogram Leg cramps Hypertension Cardiology follow-up encounter History of CHF (congestive heart failure) Fistula Hypotension Degenerative disc disease, cervical Diabetes mellitus, type II, insulin dependent Diabetic polyneuropathy (04/2017) GERD (gastroesophageal reflux disease) Chronic kidney disease with end stage renal failure on dialysis Non-ischemic cardiomyopathy Essential (primary) hypertension Syncope (07/2018) Problem with dialysis access Anemia of chronic renal failure, stage 4 (severe) Demand ischemia Morbid obesity Systolic and diastolic CHF, acute Elevated troponin Home Medications ?Medication ?Instructions ?Recorded ?Last Taken ?Type omeprazole 20 mg capsule,delayed 20 mg PO BIDAC gerd 08/08/18 10/08/23 History release blood-glucose meter (FreeStyle #1 ea 12/22/19 Unknown Rx [place] Lite kit) lancets 28 gauge (FreeStyle #100 ea 12/22/19 Unknown Rx Lancets) pen needle, diabetic 32 gauge x #400 ea 12/22/19 Unknown Rx (BD Ultra-Fine [place] Pen Needle) albuterol sulfate 90 mcg/actuation 2 puff inhalation Q6H PRN 07/26/21 01/21/23 History aerosol inhaler Shortness Of Breath Or Wheezing atorvastatin 80 mg tablet 80 mg PO QHS CHOLESTEROL 07/26/21 01/21/23 History ezetimibe 10 mg tablet 10 mg PO DAILY HIGH CHOLESTEROL 07/26/21 01/21/23 History insulin detemir U-100 100 unit/mL 40 unit subcut QHS BLOODSUGAR 07/26/21 01/21/23 History (3 mL) subcutaneous pen (Levemir FlexTouch U-100 Insulin) losartan 50 mg tablet 50 mg PO DAILY BLOOD PRESSURE 07/26/21 10/08/23 History sucroferric oxyhydroxide 500 mg 1,500 mg PO TID KIDNEY HEALTH 02/20/22 10/08/23 History chewable tablet (Velphoro) insulin aspart U-100 100 unit/mL 15 unit subcut .COMPLEX BLOOD SUGAR 01/22/23 01/21/23 History (3 mL) subcutaneous pen (Novolog FlexPen U-100 Insulin aspart) lanthanum 1,000 mg chewable tablet 3,000 mg PO TIDCM for kidneys 01/22/23 01/21/23 History quinine-vitamin E capsule 1 cap PO DAILY CRAMPS 01/22/23 10/08/23 History sertraline 50 mg tablet 50 mg PO DAILY ANTI DEPRESSANT 01/22/23 10/08/23 History trazodone 50 mg tablet 50 mg PO QHS SLEEP 01/22/23 10/07/23 History vitamin B complex-vitamin C-folic 1 tab PO DAILY VITAMIN 01/22/23 10/08/23 History acid 0.8 mg tablet (Leonela-Herbie) clopidogrel 75 mg tablet 75 mg PO DAILY HEART #90 tabs 02/13/23 Unknown Rx dulaglutide 0.75 mg/0.5 mL 0.75 mg subcut QWEEK diabetes 04/10/23 Unknown History subcutaneous pen injector (Trulicity) amlodipine 10 mg tablet 10 mg PO DAILY #30 tabs 04/11/23 Unknown Rx metoprolol succinate 200 mg 200 mg PO BID #60 tabs 04/11/23 10/08/23 Rx tablet,extended release 24 hr cinacalcet 30 mg tablet 30 mg PO DAILY 05/04/23 Unknown History cinacalcet 60 mg tablet 120 mg PO DAILY 05/04/23 Unknown History furosemide 40 mg tablet 40 mg PO DAILY 05/04/23 Unknown History gabapentin 300 mg capsule 300 mg PO QHS 05/04/23 Unknown History nitroglycerin 0.4 mg sublingual 0.4 mg buccal Q5M PRN chest pain 05/04/23 Unknown History tablet apixaban 5 mg tablet (Eliquis) 5 mg PO BID 60 days #120 tabs 05/06/23 Unknown Rx cholecalciferol (vitamin D3) 1,250 50,000 unit PO QWEEK 06/07/23 Unknown History mcg (50,000 unit) capsule fluticasone propionate 50 2 spray intranasal DAILY #18.2 mL 06/07/23 Unknown Rx mcg/actuation nasal spray,suspension nifedipine 60 mg tablet,extended 60 mg PO DAILY 06/07/23 10/08/23 History release Allergy/AdvReac Type Severity Reaction Status Date / Time liraglutide (From Victoza) Allergy Unknown unknown Verified 06/07/23 13:57 NSAIDS (Non-Steroidal AdvReac Severe Renal Verified 06/07/23 13:57 Anti-Inflamma failure BLANCA Inhibitors AdvReac Intermediate cough Verified 06/07/23 13:57 Family History Mother Hypertension Grandmother Aneurysm Other NSTEMI, initial episode of care Stented coronary artery Surgical History History of coronary artery stent placement Stented coronary artery (01/23/23) Hx of cardiac catheterization (~01/23/23) History of angioplasty of peripheral vessel (07/2021) Presence of surgically created arteriovenous shunt for hemodialysis (07/2017) Social History household members: spouse housing: house Smoking Status: Never smoker alcohol intake: never substance use type: does not use ROS ROS Narrative As in HPI and past medical history Physical Exam Narrative Alert and oriented x 3, no apparent distress S1, S2, RRR Lung sounds clear anteriorly Abdomen soft, nontender No pitting edema Left forearm AV fistula Lab / Micro Data 10/09/23 05:48 10/09/23 05:48 Labs: Laboratory Results - last 24 hr 10/08/23 15:30: WBC 8.9, RBC 4.04 L, Hgb 10.8 L, Hct 34.2 L, MCV 84.7, MCH 26.7 L, MCHC 31.6 L, RDW Std Deviation 61.4 H, RDW Coeff of Kyle 19.8 H, Plt Count 247, MPV 9.1, Immature Gran % (Auto) 0.700, Neut % (Auto) 76.8 H, Lymph % (Auto) 11.3 L, [place] % (Auto) 8.4, Eos % (Auto) 2.1, Baso % (Auto) 0.7, Absolute Neuts (auto) 6.8, Absolute Lymphs (auto) 1.00, Nucleated RBC % 0, Sodium 134 L, Potassium 4.6, Chloride 97 L, Carbon Dioxide 26.0, Anion Gap 11, BUN 54 H, Creatinine 11.60 H*, Estim Creat Clear Calc 10.26, Est GFR (MDRD) Af Amer 6 L, Est GFR (MDRD) Non-Af 5 L, BUN/Creatinine Ratio 4.7 L, Glucose 131 H, Calcium 8.6, Troponin I High Sens 23, B-Natriuretic Peptide 1303.6 H 10/08/23 21:42: POC Glucose 130 H 10/09/23 05:48: WBC 10.2, RBC 4.03 L, Hgb 10.8 L, Hct 34.7 L, MCV 86.1, MCH 26.8 L, MCHC 31.1 L, RDW Std Deviation 61.8 H, RDW Coeff of Kyle 20.1 H, Plt Count 282, MPV 9.0, Immature Gran % (Auto) 0.600, Neut % (Auto) 70.2 H, Lymph % (Auto) 14.7 L, [place] % (Auto) 10.5 H, Eos % (Auto) 3.2, Baso % (Auto) 0.8, Absolute Neuts (auto) 7.2, Absolute Lymphs (auto) 1.50, Nucleated RBC % 0.3, Anisocytosis 2+, Sodium 134 L, Potassium 5.2 H, Chloride 98, Carbon Dioxide 27.0, Anion Gap 9, BUN 63 H, Creatinine 12.50 H*, Estim Creat Clear Calc 9.40, Est GFR (MDRD) Af Amer 5 L, Est GFR (MDRD) Non-Af 5 L, BUN/Creatinine Ratio 5.0 L, Glucose 57 L, Calcium 8.4 L, Phosphorus 8.3 H, Troponin I High Sens 20 Imaging Radiology Impression Chest X-Ray 10/08/23 16:16 IMPRESSION: No definite acute or significant abnormality seen. Electronically Signed: Yonatan Haynes MD at 16:47 EDT ,
[2023-10-09] MEDS: APIXABAN 5 MG TABLET PO ×2 (11:40→22:43)
[2023-10-09] MEDS: Sertraline 50 MG Tablet PO (11:41)
[2023-10-09] MEDS: Clopidogrel Bisulfate 75 MG Tablet PO (11:41)
[2023-10-09] MEDS: Folic Acid/Vitamin B Comp W-C 1 Capsule 1 CAP PO (11:41)
[2023-10-09] MEDS: Cinacalcet HCl 30 MG Tablet 120 MG PO (11:41)
[2023-10-09] MEDS: 0.9% Saline Lock 10 ML Syringe IV ×3 (11:43→17:06)
[2023-10-09 11:50] LABS: Bedside Glucose 46 mg/dL (74-106)
[2023-10-09] MEDS: Ezetimibe 10 MG Tablet PO (11:50)
[2023-10-09] MEDS: PureFlow B 2K Dialysis Soln 1 BAG 6 BAG PF (11:52)
[2023-10-09] MEDS: 0.9% Normal Saline 1,000 ML IV.SOLN. 1000 ML OPERA.SITE (11:53)
[2023-10-09 12:11] LABS: Bedside Glucose 80 mg/dL (74-106)
--- NOTE | 2023-10-09 15:16 | CASEMGMT ---
Met with patient to complete GILLIAM form. GILLIAM form explained to patient who voiced understanding and signed form. Original form placed in pt?s chart and copy provided to patient. Fabiola Acharya, Discharge Planning Asst
--- NOTE | 2023-10-09 15:23 | CASEMGMT ---
CATHY CM into pt room, pt lying in bed in no distress without oxygen on. Pt states he may need oxygen to go home on. Provided pt with a local verbal list of DME companies, pt chose [employer]. Pt states he has a CPAP at home. He reports he goes to dialysis on Sunday/Sunday/Sunday with a chair time of 7:15am at [facility]. Pt reports he is independent in ADL's and does not use AD. Pt drives himself and denies needs with transportation. Pt denies any homegoing needs, will follow for oxygen.
[2023-10-09] MEDS: Ondansetron 4 MG/2 ML Vial IV (15:42)
[2023-10-09] MEDS: Metoprolol(XL)Succ 200 MG Tablet PO ×2 (15:52→22:43)
[2023-10-09] MEDS: Losartan Potassium 50 MG Tablet PO (15:52)
[2023-10-09] MEDS: Loperamide 2 MG Capsule 4 MG PO (17:04)
[2023-10-09] MEDS: Furosemide 100 MG/10 ML Vial 80 MG IV (17:06)
[2023-10-09 17:34] LABS: Bedside Glucose 124 mg/dL (74-106)
--- NOTE | 2023-10-09 17:41 | PN.HOSP_ITS ---
Reason for Visit Reason for Visit: Diagnoses Essential (primary) hypertension (10/08/23) Atherosclerotic heart disease of [place] coronary artery without angina pectoris (10/08/23) Cardiomyopathy, unspecified (10/08/23) Paroxysmal atrial fibrillation (10/08/23) Shortness of breath (10/08/23) Hypoxemia (10/08/23) Subjective Subjective Patient was seen and examined today, he underwent dialysis but afterwards he became nauseated and had diarrhea, we were not able to obtain a walking pulse oximetry on the patient, I felt it was necessary to make the patient a full admission to stabilize his fluid overload, he will have dialysis again tomorrow. Objective Data Objective Data Vital Signs: Vital Signs Temp Pulse Resp BP Pulse Ox O2 Del Method O2 Flow Rate 96.8 F L 69 15 150/104 H 94 Room Air 2 10/09/23 16:00 10/09/23 16:00 10/09/23 16:00 10/09/23 16:00 10/09/23 16:00 10/09/23 16:00 10/09/23 14:51 Oxygen Flow Rate (L/min) 2 Oxygen Delivery Method Room Air Weight: 131.5 kg Body Mass Index (BMI) 42.9 Intake & Output: Intake and Output for Last 24 Hours 10/07/23 10/08/23 10/09/23 23:59 23:59 23:59 Intake Total 1200 / 1200 Output Total 2800 / 2800 Balance -1600 / -1600 Lab / Micro Data 10/09/23 05:48 10/09/23 05:48 Labs: Laboratory Results - last 24 hr 10/08/23 21:42: POC Glucose 130 H 10/09/23 05:48: WBC 10.2, RBC 4.03 L, Hgb 10.8 L, Hct 34.7 L, MCV 86.1, MCH 26.8 L, MCHC 31.1 L, RDW Std Deviation 61.8 H, RDW Coeff of Kyle 20.1 H, Plt Count 282, MPV 9.0, Immature Gran % (Auto) 0.600, Neut % (Auto) 70.2 H, Lymph % (Auto) 14.7 L, [place] % (Auto) 10.5 H, Eos % (Auto) 3.2, Baso % (Auto) 0.8, Absolute Neuts (auto) 7.2, Absolute Lymphs (auto) 1.50, Nucleated RBC % 0.3, Anisocytosis 2+, Sodium 134 L, Potassium 5.2 H, Chloride 98, Carbon Dioxide 27.0, Anion Gap 9, BUN 63 H, Creatinine 12.50 H*, Estim Creat Clear Calc 9.40, Est GFR (MDRD) Af Amer 5 L, Est GFR (MDRD) Non-Af 5 L, BUN/Creatinine Ratio 5.0 L, Glucose 57 L, C alcium 8.4 L, Phosphorus 8.3 H, Troponin I High Sens 20 10/09/23 11:18: POC Glucose 46 L 10/09/23 11:35: POC Glucose 80 10/09/23 17:04: POC Glucose 124 H Radiography Diagnostic Testing: Radiology Impression Echocardiogram 10/08/23 18:03 Interpretation Summary Normal LV size. Severe concentric left ventricular hypertrophy. The left ventricular ejection fraction is 45 %. Moderately dilated right ventricle. Ordering Physician: Marlee Vidales Referring Physician: Norris Mcqueen Performed By: Lissa Palencia RDCS, RVT Physical Exam Const alert and oriented x3 Constitutional Narrative: Patient is morbidly obese General Appearance: cooperative, well kempt and well developed Orientation / Consciousness: awake, oriented to person, oriented to place and oriented to time HEENT normocephalic, head/scalp atraumatic and moist oral mucous membranes Eyes PERRL, EOMs intact bilaterally and conjunctivae normal Neck supple, no JVD, thyroid normal and no carotid bruits General: trachea midline Resp normal respiratory effort, no retractions and no use of accessory muscles Resp Narrative: Decreased breath sounds are noted bilaterally Auscultation: Negative for rales, rhonchi or wheezes Cardio regular rate, regular rhythm, S1 normal heart sound, S2 normal heart sound, no murmurs, no rub and no gallops GI normal to inspection, nondistended, normoactive bowel sounds, soft to palpation, non-tender and non-distended Extremity no clubbing, cyanosis or edema Skin no rashes or lesions noted General Skin Exam: no breakdown Neuro oriented x3, CN's II-XII intact bilaterally, no focal motor deficits and no sensory deficits noted Sensorium / Orientation: awake and alert Speech: speech normal Psych affect normal Assessment & Plan Assessment/Plan (1) Hypoxia: PLAN: Plan 1. Hypoxia secondary to fluid overload-patient will undergo dialysis again tomorrow with removal of additional fluid, pulse ox will be monitored, he will need a walking pulse oximetry if he is discharged tomorrow. #2 end-stage renal disease on dialysis-patient underwent dialysis today, he will undergo dialysis tomorrow #3 coronary artery disease-this appears stable at this time #4 nonischemic cardiomyopathy-patient's echocardiogram today showed an EF of 45%, this appears improved from the patient's last echocardiogram on file here, his ejection fraction at that time was 35%, patient will remain on his present medication #5 morbid obesity-complicates care, management, recovery, and prognosis Total clinical time spent by myself addressing the patient's medical issues, reviewing all of his data, and collaborating with patient's care team: 35 minutes Charges/Coding Visit Charges Inpatient E&M: 17102 Subs Hosp L2
[2023-10-09] MEDS: Insulin Glargine-YFGN 100 UNIT/ML Pen 40 UNIT SC (22:42)
[2023-10-09] MEDS: Cinacalcet HCl 30 MG Tablet PO (22:42)
[2023-10-09] MEDS: traZODone 50 MG Tablet PO (22:43)
[2023-10-09] MEDS: Atorvastatin Calcium 80 MG Tablet PO (22:43)
[2023-10-09] MEDS: Gabapentin 300 MG Capsule PO (22:45)
[2023-10-09 23:04] LABS: Bedside Glucose 384 mg/dL (74-106)
[2023-10-10] VITALS (13 sets, daily range): BP systolic 99–241; BP diastolic 57–85; PULSE 61–69; RESP 17–18; TEMP 36.6–36.9; O2SAT 90–100; BMI 43.9
[2023-10-10 07:07] LABS: Bedside Glucose 78 mg/dL (74-106)
--- NOTE | 2023-10-10 08:02 | CPS ---
On arrival to room patient had nasal cannula off. O2 86% on RA, placed patient back on 2L spo2 now 91%.
[2023-10-10] MEDS: 0.9% Normal Saline 1,000 ML IV.SOLN. 1000 ML OPERA.SITE (08:18)
[2023-10-10] MEDS: PureFlow B 2K Dialysis Soln 1 BAG 6 BAG PF (08:18)
[2023-10-10] MEDS: 0.9% Saline Lock 10 ML Syringe IV (12:02)
[2023-10-10] MEDS: Cinacalcet HCl 30 MG Tablet 120 MG PO (12:04)
[2023-10-10] MEDS: Losartan Potassium 50 MG Tablet PO (12:04)
[2023-10-10] MEDS: Furosemide 100 MG/10 ML Vial 80 MG IV (12:04)
[2023-10-10] MEDS: Clopidogrel Bisulfate 75 MG Tablet PO (12:05)
[2023-10-10] MEDS: Folic Acid/Vitamin B Comp W-C 1 Capsule 1 CAP PO (12:05)
[2023-10-10] MEDS: APIXABAN 5 MG TABLET PO (12:05)
[2023-10-10] MEDS: Sertraline 50 MG Tablet PO (12:05)
[2023-10-10] MEDS: Ezetimibe 10 MG Tablet PO (12:05)
[2023-10-10] MEDS: Metoprolol(XL)Succ 200 MG Tablet PO (12:07)
[2023-10-10 12:41] LABS: Bedside Glucose 119 mg/dL (74-106)
--- NOTE | 2023-10-10 14:16 | CHAPLAIN ---
Type of Pastoral Visit _x__ Initial Visit ___ Follow-up Visit ___ On-call Visit ___ General Patient Visit ___ Spiritual Assessment ___ Family Conference ___ Bereavement ___ Rapid Response ___ Code Blue ___ Other (describe below) Pastoral Care Referral From _x__ Patient ___ Family ___ Nurse ___ Physician ___ Community Service Director ___ Stations Superintendent ___ Other (describe below) Sacrament/Intervention _x__ Active listening ___ Anointing ___ Episcopal ___ Bereavement ___ Communion ___ Olivia exploration ___ ___ Life review ___ Prayer ___ Reconciliation ___ Sacrament of Sick _x__ Supportive presence ___ Wedding ___ Other (describe below) Pastoral Comments offered support, listening ear, and exploration of how patient is coping; pt states he is doing well, has others praying for him, and is content with the situation
--- NOTE | 2023-10-10 14:59 | CASEMGMT ---
Pt did not qualify for home oxygen. CATHY CM into pt room, pt sitting up in chair on RA. Pt states he wears his CPAP at night but his doctor said he may need another sleep study. Pt reports he will follow with his PCP. Pt denies any homegoing needs.
--- NOTE | 2023-10-10 15:42 | DCINST_ITS ---
Discharge Instructions Diet Discharge Diet: 1800 Calorie Control Diet Activity Discharge Activity: Return to Normal Activity Weight Bearing Status: Full weight bearing Follow Up Care Test Results: Test results from this visit will be discussed in further detail at your follow- up appointment, if applicable. Discharge Plan Admission Admit Date/Time: 10/09/23 17:40 Primary Reason for Your Visit: Hypoxia due to fluid overload Attending Provider: Harsh Rubin Primary Care Provider: Norris Mcqueen Consulting Providers: Akila Zamudio; Edwige Fischer; Jayson Pickens; Sushant Duenas; Александр Nevarez; Alexi Saba; Max Bosch; Storm Arita; Tammie Daniels; Kolton Cm; Zack Mccurdy NP; Akila Urias NP; Priscila Gonzalez; Jade Lamar; Marlee Vidales Discharge Orders/Prescriptions Prescriptions: Continued (DME) blood-glucose meter [FreeStyle [place] Lite] Kit See Rx Instructions .ROUTE .MEDSUPPLY Qty: 1 0RF Rx Instructions: As directed (DME) pen needle, diabetic [BD Ultra-Fine [place] Pen Needle] 32 gauge x 5/32 needle See Rx Instructions .ROUTE .MEDSUPPLY Qty: 400 1RF Rx Instructions: 4 times daily (DME) lancets [FreeStyle Lancets] 28 gauge misc See Rx Instructions .ROUTE .MEDSUPPLY Qty: 100 5RF Rx Instructions: As directed losartan 50 mg tablet 50 mg PO DAILY atorvastatin 80 mg tablet 80 mg PO QHS ezetimibe 10 mg tablet 10 mg PO DAILY albuterol sulfate 90 mcg/actuation HFA aerosol inhaler 2 puff inhalation Q6H PRN (Reason: Shortness Of Breath Or Wheezing) Levemir FlexTouch U100 Insulin 100 unit/mL (3 mL) insulin pen 40 unit subcut QHS clopidogrel 75 mg tablet 75 mg PO DAILY Qty: 90 3RF cholecalciferol (vitamin D3) 1,250 mcg (50,000 unit) capsule 50,000 unit PO QWEEK Patient Comments: take 1 capsule by mouth ONE TIME A WEEK takes it on Tuesdays nifedipine 60 mg tablet extended release 60 mg PO DAILY fluticasone propionate 50 mcg/actuation spray,suspension 2 spray intranasal DAILY Qty: 18.2 3RF Rx Instructions: administer into each nostril omeprazole 20 MG capsule,delayed release(DR/EC) 20 mg PO BIDAC Velphoro 500 mg tablet,chewable 1,500 mg PO TID Patient Comments: CHEW & SWALLOW 3 TABLETS THREE TIMES A DAY WITH MEALS Trulicity 0.75 mg/0.5 mL pen injector 0.75 mg SUBCUT QWEEK Patient Comments: Inject 0.75 mg subcutaneously one time a week. Inject dose once per week. Discard Pen After Rx Instructions: pt unsure of dosage amount metoprolol succinate 200 mg Tablet Extended Release 24 Hr 200 mg PO BID Qty: 60 2RF amlodipine 10 mg Tablet 10 mg PO DAILY Qty: 30 2RF Leonela-Herbie 0.8 mg tablet 1 tab PO DAILY trazodone 50 mg tablet 50 mg PO QHS sertraline 50 mg tablet 50 mg PO DAILY lanthanum 1,000 mg tablet,chewable 3,000 mg PO TIDCM quinine-vitamin E Capsule 1 cap PO DAILY insulin aspart U-100 [Novolog FlexPen U-100 Insulin] 100 unit/mL (3 mL) insulin pen 15 unit SC .COMPLEX Rx Instructions: 15 units subcutaneously TID CM cinacalcet 30 mg tablet 30 mg PO DAILY Patient Comments: TAKE 1 TABLET BY MOUTH DAILY WITH 60 MG TABLETS FOR TOTAL DAILY DOSE OF 150 MG cinacalcet 60 mg tablet 120 mg PO DAILY Patient Comments: TAKE 2 TABLETS BY MOUTH DAILY furosemide 40 mg tablet 40 mg PO DAILY Patient Comments: TAKE 1 TABLET BY MOUTH EVERY DAY gabapentin 300 mg capsule 300 mg PO QHS Patient Comments: Take 1 capsule by mouth daily at bedtime nitroglycerin 0.4 mg tablet, sublingual 0.4 mg buccal Q5M PRN (Reason: chest pain) Patient Comments: D Eliquis 5 mg Tablet 5 mg PO BID 60 Days Qty: 120 0RF Referrals / Follow Up: Norris Mcqueen MD [Primary Care Provider] - Within 2 Weeks Disposition Disposition (needs filled in before D/C Order can be placed): Home, Self Care
--- NOTE | 2023-10-10 15:51 | PCM.DC.SUM ---
Providers Date of Admission: 10/09/23 Date of Discharge: 10/10/23 Primary Care Physician: Dr. Norris Mcqueen MD Consultations 10/08/23 17:16 Consult: Nephrology Routine Consulting Provider: Jade Lamar Reason for Consult: esrd on hd EMERGENT Consult: No Notified: Yes Date Notified: 10/09/23 Time Notified: 06:34 Method of Notification: Answering Service 10/08/23 18:03 Consult: Cardiology Routine Consulting Provider: Marie Castorena Reason for Consult: CHF, known CAD, ? unstable angina EMERGENT Consult: No MD Notified: Yes Date Notified: 10/09/23 Time Notified: 06:30 Method of Notification: Text Comments:: Roque Reason For Visit: EXERTIONAL DYSPNEA Diagnosis Discharge Diagnosis (1) Hypoxia: Status: Acute Code(s): R09.02 - Hypoxemia Plan 1. Hypoxia secondary to fluid overload-patient will undergo dialysis again tomorrow with removal of additional fluid, pulse ox will be monitored, he will need a walking pulse oximetry if he is discharged tomorrow. #2 end-stage renal disease on dialysis-patient underwent dialysis today, he will undergo dialysis tomorrow #3 coronary artery disease-this appears stable at this time #4 nonischemic cardiomyopathy-patient's echocardiogram today showed an EF of 45%, this appears improved from the patient's last echocardiogram on file here, his ejection fraction at that time was 35%, patient will remain on his present medication #5 morbid obesity-complicates care, management, recovery, and prognosis Total clinical time spent by myself addressing the patient's medical issues, reviewing all of his data, and collaborating with patient's care team: 35 minutes Medications at Discharge Home Medications omeprazole 20 mg capsule,delayed release 20 mg PO BIDAC gerd 08/08/18 blood-glucose meter (FreeStyle [place] Lite kit) #1 ea 12/22/19 lancets 28 gauge (FreeStyle Lancets) #100 ea 12/22/19 pen needle, diabetic 32 gauge x 5/32 (BD Ultra-Fine [place] Pen Needle) #400 ea 12/22/19 albuterol sulfate 90 mcg/actuation aerosol inhaler 2 puff inhalation Q6H PRN Shortness Of Breath Or Wheezing 07/26/21 atorvastatin 80 mg tablet 80 mg PO QHS CHOLESTEROL 07/26/21 ezetimibe 10 mg tablet 10 mg PO DAILY HIGH CHOLESTEROL 07/26/21 insulin detemir U-100 100 unit/mL (3 mL) subcutaneous pen (Levemir FlexTouch U-100 Insulin) 40 unit subcut QHS BLOODSUGAR 07/26/21 losartan 50 mg tablet 50 mg PO DAILY BLOOD PRESSURE 07/26/21 sucroferric oxyhydroxide 500 mg chewable tablet (Velphoro) 1,500 mg PO TID KIDNEY HEALTH 02/20/22 insulin aspart U-100 100 unit/mL (3 mL) subcutaneous pen (Novolog FlexPen U-100 Insulin aspart) 15 unit subcut .COMPLEX BLOOD SUGAR 01/22/23 lanthanum 1,000 mg chewable tablet 3,000 mg PO TIDCM for kidneys 01/22/23 quinine-vitamin E capsule 1 cap PO DAILY CRAMPS 01/22/23 sertraline 50 mg tablet 50 mg PO DAILY ANTI DEPRESSANT 01/22/23 trazodone 50 mg tablet 50 mg PO QHS SLEEP 01/22/23 vitamin B complex-vitamin C-folic acid 0.8 mg tablet (Leonela-Herbie) 1 tab PO DAILY VITAMIN 01/22/23 clopidogrel 75 mg tablet 75 mg PO DAILY HEART #90 tabs 02/13/23 dulaglutide 0.75 mg/0.5 mL subcutaneous pen injector (Trulicity) 0.75 mg subcut QWEEK diabetes 04/10/23 amlodipine 10 mg tablet 10 mg PO DAILY #30 tabs 04/11/23 metoprolol succinate 200 mg tablet,extended release 24 hr 200 mg PO BID #60 tabs 04/11/23 cinacalcet 30 mg tablet 30 mg PO DAILY 05/04/23 cinacalcet 60 mg tablet 120 mg PO DAILY 05/04/23 furosemide 40 mg tablet 40 mg PO DAILY 05/04/23 gabapentin 300 mg capsule 300 mg PO QHS 05/04/23 nitroglycerin 0.4 mg sublingual tablet 0.4 mg buccal Q5M PRN chest pain 05/04/23 apixaban 5 mg tablet (Eliquis) 5 mg PO BID 60 days #120 tabs 05/06/23 cholecalciferol (vitamin D3) 1,250 mcg (50,000 unit) capsule 50,000 unit PO QWEEK 06/07/23 fluticasone propionate 50 mcg/actuation nasal spray,suspension 2 spray intranasal DAILY #18.2 mL 06/07/23 nifedipine 60 mg tablet,extended release 60 mg PO DAILY 06/07/23 Hospital Course Operations None Procedures Dialysis Summary of Care Provided Minutes Spent on Discharge: 31 Hospital Course: This 53-year-old black male was seen in the emergency room at [facility] with complaints of shortness of breath. Patient has end-stage renal disease and requires dialysis, he was seen in his physician's office and was noted to have a low pulse ox and he was directed to the emergency room for evaluation. Workup in the emergency room showed a normal white blood cell count, hemoglobin was 10.8, creatinine was elevated at 11.6 and BUN was 54. Chest x-ray was obtained that showed no definite acute or significant abnormality. Patient was ambulated in the emergency room and his oxygen saturation dropped to 88% on room air. Patient was admitted to [place] [address] for hypoxia, he underwent dialysis the following day and after dialysis had nausea and diarrhea, patient was then made a full admission to the hospital, dialysis was repeated on 10/10/2023, patient was then assessed for home oxygen and it was noted that his pulse ox did not qualify him for oxygen either at rest or ambulating. On 10/10/2023, patient was seen and examined: On examination he appeared in good health and spirits. Vital signs as documented. Skin warm and dry and without overt rashes. Neck without JVD, neck was supple, trachea midline, thyroid was normal. Lungs clear bilaterally, normal air movement was noted. Heart exam notable for regular rhythm, normal sounds and absence of murmurs, rubs or gallops. Abdomen unremarkable and without evidence of organomegaly, masses, or abdominal aortic enlargement. Bowel sounds are present, abdomen is not distended. Extremities nonedematous, no cyanosis was noted, no clubbing was noted. Neuro: Cranial nerves II through XII are grossly intact, no focal motor deficits were noted, sensation to light touch and pinprick intact, motor exam 5/5 throughout. Psych: Patient is alert and oriented x3, he does not appear anxious or depressed, he does not appear agitated. Patient was discharged home in stable condition on 10/10/2023 Weight / BMI Weight Weight: 134.7 kg Body Mass Index (BMI) 43.9 ABG / Lab / Microbiology Data 10/09/23 05:48 10/09/23 05:48 Laboratory: Laboratory Results - last 24 hr 10/09/23 17:04: POC Glucose 124 H 10/09/23 22:41: POC Glucose 384 H 10/10/23 06:13: POC Glucose 78 10/10/23 12:14: POC Glucose 119 H Radiography Diagnostic Testing: Radiology Impression Echocardiogram 10/08/23 18:03 Interpretation Summary Normal LV size. Severe concentric left ventricular hypertrophy. The left ventricular ejection fraction is 45 %. Moderately dilated right ventricle. Ordering Physician: Marlee Vidales Referring Physician: Norris Mcqueen Performed By: Lissa Palencia RDCS, RVT D/C Instructions Discharge Diet: 1800 Calorie Control Diet Weight Bearing Status: Full weight bearing Meaningful Use Info Meaningful Use Meaningful Use Diagnoses (Choose all that apply): None applicable Ischemic Stroke Statin Dosing Therapy Reference: STATIN DOSE THERAPY REFERENCE: * Patients > 75 years receive moderate or high dose statin therapy. * Patients 75 years or YOUNGER should receive HIGH intensity statin dose unless contraindicated. You will be required to document reason for non-treatment if statin daily dose does not meet guidelines. HIGH DOSE STATIN THERAPY DAILY Atorvastatin > than or = to 40 mg Rosuvastatin > than or = to 20 mg Amlodipine + Atorvastatin > than or = to 2.5/40 mg Ezetimibe + Simvastatin 10/80 mg Simvastatin 80mg Discharge Plan Admission Admit Date/Time: 10/09/23 17:40 Primary Reason for Your Visit: Hypoxia due to fluid overload Attending Provider: Harsh Rubin Primary Care Provider: Norris Mcqueen Consulting Providers: Akila Zamudio; Edwige Fischer; Jayson Pickens; Sushant Duenas; Александр Nevarez; Alexi Saba; Max Bosch; Storm Arita; Tammie Daniels; Kolton Cm; Zack Mccurdy [employer]; Akila Urias NP; Priscila Gonzalez; Jade Lamar; Marlee Vidales Discharge Orders/Prescriptions Prescriptions: Continued (DME) blood-glucose meter [FreeStyle [place] Lite] Kit See Rx Instructions .ROUTE .MEDSUPPLY Qty: 1 0RF Rx Instructions: As directed (DME) pen needle, diabetic [BD Ultra-Fine [place] Pen Needle] 32 gauge x 5/32 needle See Rx Instructions .ROUTE .MEDSUPPLY Qty: 400 1RF Rx Instructions: 4 times daily (DME) lancets [FreeStyle Lancets] 28 gauge misc See Rx Instructions .ROUTE .MEDSUPPLY Qty: 100 5RF Rx Instructions: As directed losartan 50 mg tablet 50 mg PO DAILY atorvastatin 80 mg tablet 80 mg PO QHS ezetimibe 10 mg tablet 10 mg PO DAILY albuterol sulfate 90 mcg/actuation HFA aerosol inhaler 2 puff inhalation Q6H PRN (Reason: Shortness Of Breath Or Wheezing) Levemir FlexTouch U100 Insulin 100 unit/mL (3 mL) insulin pen 40 unit subcut QHS clopidogrel 75 mg tablet 75 mg PO DAILY Qty: 90 3RF cholecalciferol (vitamin D3) 1,250 mcg (50,000 unit) capsule 50,000 unit PO QWEEK Patient Comments: take 1 capsule by mouth ONE TIME A WEEK takes it on Tuesdays nifedipine 60 mg tablet extended release 60 mg PO DAILY fluticasone propionate 50 mcg/actuation spray,suspension 2 spray intranasal DAILY Qty: 18.2 3RF Rx Instructions: administer into each nostril omeprazole 20 MG capsule,delayed release(DR/EC) 20 mg PO BIDAC Velphoro 500 mg tablet,chewable 1,500 mg PO TID Patient Comments: CHEW & SWALLOW 3 TABLETS THREE TIMES A DAY WITH MEALS Trulicity 0.75 mg/0.5 mL pen injector 0.75 mg SUBCUT QWEEK Patient Comments: Inject 0.75 mg subcutaneously one time a week. Inject dose once per week. Discard Pen After Rx Instructions: pt unsure of dosage amount metoprolol succinate 200 mg Tablet Extended Release 24 Hr 200 mg PO BID Qty: 60 2RF amlodipine 10 mg Tablet 10 mg PO DAILY Qty: 30 2RF Leonela-Herbie 0.8 mg tablet 1 tab PO DAILY trazodone 50 mg tablet 50 mg PO QHS sertraline 50 mg tablet 50 mg PO DAILY lanthanum 1,000 mg tablet,chewable 3,000 mg PO TIDCM quinine-vitamin E Capsule 1 cap PO DAILY insulin aspart U-100 [Novolog FlexPen U-100 Insulin] 100 unit/mL (3 mL) insulin pen 15 unit SC .COMPLEX Rx Instructions: 15 units subcutaneously TID CM cinacalcet 30 mg tablet 30 mg PO DAILY Patient Comments: TAKE 1 TABLET BY MOUTH DAILY WITH 60 MG TABLETS FOR TOTAL DAILY DOSE OF 150 MG cinacalcet 60 mg tablet 120 mg PO DAILY Patient Comments: TAKE 2 TABLETS BY MOUTH DAILY furosemide 40 mg tablet 40 mg PO DAILY Patient Comments: TAKE 1 TABLET BY MOUTH EVERY DAY gabapentin 300 mg capsule 300 mg PO QHS Patient Comments: Take 1 capsule by mouth daily at bedtime nitroglycerin 0.4 mg tablet, sublingual 0.4 mg buccal Q5M PRN (Reason: chest pain) Patient Comments: D Eliquis 5 mg Tablet 5 mg PO BID 60 Days Qty: 120 0RF Referrals / Follow Up: Norris Mcqueen MD [Primary Care Provider] - Within 2 Weeks Disposition Disposition (needs filled in before D/C Order can be placed): Home, Self Care Charges/Coding Visit Charges Inpatient E&M: 62036 Disch Hosp >30min
--- NOTE | 2023-10-10 16:34 | PCM.PN.REN ---
Subjective Subjective no new complaints Objective Data Objective Data Vital Signs: Vital Signs Temp Pulse Resp BP Pulse Ox O2 Del Method O2 Flow Rate 98.2 F 69 18 99/58 L 90 Room Air 2 10/10/23 14:00 10/10/23 14:00 10/10/23 14:00 10/10/23 14:00 10/10/23 14:51 10/10/23 14:00 10/10/23 09:38 Oxygen Flow Rate (L/min) 2 Oxygen Delivery Method Room Air Weight: 134.7 kg Body Mass Index (BMI) 43.9 Intake & Output: Intake and Output for Last 24 Hours 10/08/23 10/09/23 10/10/23 23:59 23:59 23:59 Intake Total 1200 / 1200 Output Total 2800 / 2800 2800 / 2800 Balance -1600 / -1600 -2800 / -2800 Lab / Micro Data 10/09/23 05:48 10/09/23 05:48 Labs: Laboratory Results - last 24 hr 10/09/23 17:04: POC Glucose 124 H 10/09/23 22:41: POC Glucose 384 H 10/10/23 06:13: POC Glucose 78 10/10/23 12:14: POC Glucose 119 H Radiography Diagnostic Testing: Radiology Impression Echocardiogram 10/08/23 18:03 Interpretation Summary Normal LV size. Severe concentric left ventricular hypertrophy. The left ventricular ejection fraction is 45 %. Moderately dilated right ventricle. Ordering Physician: Marlee Vidales Referring Physician: Norris Mcqueen Performed By: Lissa Palencia, KYLE, RVT Physical Exam Narrative Alert and oriented x 3, no apparent distress S1, S2, RRR Lung sounds clear anteriorly Abdomen soft, nontender No pitting edema Left forearm AV fistula Assessment & Plan Assessment/Plan (1) ESRD on dialysis: (2) Shortness of breath: (3) Hypoxia: PLAN: Plan This is a 53-year-old male with past medical history significant for ESRD, coronary artery disease, cardiomyopathy who presented with complaints of shortness of breath, admitted for further evaluation and treatment. Cardiology has been consulted, patient underwent stress test this morning. Troponin level 20. feels better. Bp is on lower side. usually he runs fairly high. breathing is better after HD. dc plans. will adjust EDW
[2023-10-10 16:55] LABS: Bedside Glucose 114 mg/dL (74-106)
== END 2023-10-10 17:11 | disposition home or self-care (01) | DRG 640 ==
LOC: ED 17:21 → MS3 17:31
PROVIDERS: Family Medicine; Physician Assistant; Admitting Provider Internal Medicine; Emergency Provider Emergency Medicine; PCP Family Medicine; Visit Provider Internal Medicine
DX: E87.79 Other fluid overload (principal); I50.43 Acute on chronic combined systolic (congestive) and diastolic (congestive) heart failure; N18.6 End stage renal disease; I13.2 Hypertensive heart and chronic kidney disease with heart failure and with stage 5 chronic kidney disease, or end stage renal disease; Z68.41 Body mass index [BMI] 40.0-44.9, adult; E11.22 Type 2 diabetes mellitus with diabetic chronic kidney disease; J44.9 Chronic obstructive pulmonary disease, unspecified; E11.42 Type 2 diabetes mellitus with diabetic polyneuropathy; E66.01 Morbid (severe) obesity due to excess calories; I48.0 Paroxysmal atrial fibrillation; Z79.4 Long term (current) use of insulin; E78.00 Pure hypercholesterolemia, unspecified; G47.33 Obstructive sleep apnea (adult) (pediatric); Z99.2 Dependence on renal dialysis; I25.10 Atherosclerotic heart disease of native coronary artery without angina pectoris; I25.5 Ischemic cardiomyopathy; I25.2 Old myocardial infarction; Z79.02 Long term (current) use of antithrombotics/antiplatelets; Z79.51 Long term (current) use of inhaled steroids; Z79.899 Other long term (current) drug therapy; Z79.01 Long term (current) use of anticoagulants; Z86.16 Personal history of COVID-19; Z95.5 Presence of coronary angioplasty implant and graft
CPT/HCPCS: 36415; 71046; 78452; 80048; 82962; 83880; 84100; 84484; 85025; 90937; 93005; 93017; 93306; 99285; A9500; J7030; A4216; G0257; J1940; J2405; J2785

== ENCOUNTER 2023-10-17 06:14 | Emergency (ER) | payer OTHER, MEDICARE, SELFPAY ==
[2023-10-17 06:15] VITALS: BP 150/74; PULSE 78; RESP 18; TEMP 35.8; O2SAT 100
[2023-10-17 06:18] VITALS: BP 150/74; PULSE 81; RESP 21; TEMP 36.1; O2SAT 95
--- NOTE | 2023-10-17 06:22 | CT_ITS ---
EXAM: CT Abdomen And Pelvis W/O Contrast Injection HISTORY: Kidney Stone TECHNIQUE: Routine protocol CT abdomen and pelvis. IV Contrast: None.. Oral contrast: None. RADIATION DOSAGE (If Supplied By Facility): CTDIvol = ( 33.94 ) mGy, DLP = ( 1814.43 ) mGycm Individualized dose optimization techniques were used for this CT. COMPARISON: None. LIMITATIONS: None. FINDINGS: LOWER CHEST: Patchy opacities in the lung bases and scattered reticular opacities. Coronary artery calcifications are noted LIVER: Enlarged. Fatty infiltration. GALLBLADDER AND BILIARY TREE: Grossly unremarkable. PANCREAS: Grossly unremarkable. SPLEEN: Grossly unremarkable. ADRENAL GLANDS: Grossly unremarkable. KIDNEYS AND URETERS: The kidneys are atrophic. Small low-attenuation structures both kidneys likely cysts though not completely characterized. No calculi demonstrated. No hydronephrosis. PERITONEUM: No free air. Moderate amount of free fluid in the abdomen and pelvis. BOWEL: Scattered diverticula throughout the colon. No bowel obstruction. APPENDIX: Visualized and unremarkable. No evidence of acute appendicitis. VESSELS: Abdominal aorta is normal caliber. REPRODUCTIVE ORGANS: Grossly unremarkable URINARY BLADDER: Minimally distended. Prominent wall. ABDOMINAL WALL: Extensive nodular opacities and stranding throughout the body wall with subcutaneous edema.. BONES: No acute abnormalities. Bilateral pars defects at L3 with grade 1 spondylolisthesis at L3-4, and degenerative changes. CT/Abdomen/Pelvis without Cont IMPRESSION: Atrophic kidneys. No urolithiasis or hydronephrosis. Moderate ascites. Colonic diverticulosis without evidence of acute diverticulitis. Patchy opacities in the lung bases nonspecific may be inflammatory/pneumonitis or edema. Diffuse subcutaneous edema with irregular nodular structures throughout the body wall, uncertain etiology. Electronically Signed: Mary Ramos MD at 7:52 EDT ,
--- NOTE | 2023-10-17 06:23 | EX.ED.DYSGE1 ---
HPI History of Present Illness Chief Complaint: Flank Pain Informant: patient Narrative Narrative: Sudden left flank pain awakening him at 3:30 AM this morning pain radiates to his groin region. Nausea without vomiting. End-stage renal disease on dialysis, Sunday, Sunday, Fridays. Due for dialysis this morning. Denies fevers. He states makes minimal urine. No dysuria. Denies history of kidney stones. No he has a history of paroxysmal A-fib coronary disease history with a stent. On Plavix and Eliquis. Pain was a 9 initially however subsiding. Prior similar symptoms: No PFSH PFSH Medical History Anxiety Atrial fibrillation Chest pain Non-ST elevation LA (NSTEMI) Atrial flutter Dialysis patient CPAP (continuous positive airway pressure) dependence Pneumonia due to COVID-19 virus Myocardial infarct VERÓNICA (obstructive sleep apnea) Arteriosclerotic cardiovascular disease Dyslipidemia Elevated troponin ESRD on dialysis Wears glasses Wears partial dentures Insulin dependent diabetes mellitus Diabetes High cholesterol Non-smoker COPD (chronic obstructive pulmonary disease) Sleep apnea History of stress test History of echocardiogram Leg cramps Hypertension Cardiology follow-up encounter History of CHF (congestive heart failure) Fistula Hypotension Degenerative disc disease, cervical Diabetes mellitus, type II, insulin dependent Diabetic polyneuropathy (04/2017) GERD (gastroesophageal reflux disease) Chronic kidney disease with end stage renal failure on dialysis Non-ischemic cardiomyopathy Essential (primary) hypertension Syncope (07/2018) Problem with dialysis access Anemia of chronic renal failure, stage 4 (severe) Demand ischemia Morbid obesity Systolic and diastolic CHF, acute Elevated troponin Home Medications ?Medication ?Instructions ?Recorded ?Last Taken ?Type omeprazole 20 mg capsule,delayed 20 mg PO BIDAC gerd 08/08/18 10/08/23 History release blood-glucose meter (FreeStyle #1 ea 12/22/19 Unknown Rx [place] Lite kit) lancets 28 gauge (FreeStyle #100 ea 12/22/19 Unknown Rx Lancets) pen needle, diabetic 32 gauge x #400 ea 12/22/19 Unknown Rx (BD Ultra-Fine [place] Pen Needle) albuterol sulfate 90 mcg/actuation 2 puff inhalation Q6H PRN 07/26/21 01/21/23 History aerosol inhaler Shortness Of Breath Or Wheezing atorvastatin 80 mg tablet 80 mg PO QHS CHOLESTEROL 07/26/21 01/21/23 History ezetimibe 10 mg tablet 10 mg PO DAILY HIGH CHOLESTEROL 07/26/21 01/21/23 History insulin detemir U-100 100 unit/mL 40 unit subcut QHS BLOODSUGAR 07/26/21 01/21/23 History (3 mL) subcutaneous pen (Levemir FlexTouch U-100 Insulin) losartan 50 mg tablet 50 mg PO DAILY BLOOD PRESSURE 07/26/21 10/08/23 History sucroferric oxyhydroxide 500 mg 1,500 mg PO TID KIDNEY HEALTH 02/20/22 10/08/23 History chewable tablet (Velphoro) insulin aspart U-100 100 unit/mL 15 unit subcut .COMPLEX BLOOD SUGAR 01/22/23 01/21/23 History (3 mL) subcutaneous pen (Novolog FlexPen U-100 Insulin aspart) lanthanum 1,000 mg chewable tablet 3,000 mg PO TIDCM for kidneys 01/22/23 01/21/23 History quinine-vitamin E capsule 1 cap PO DAILY CRAMPS 01/22/23 10/08/23 History sertraline 50 mg tablet 50 mg PO DAILY ANTI DEPRESSANT 01/22/23 10/08/23 History trazodone 50 mg tablet 50 mg PO QHS SLEEP 01/22/23 10/07/23 History vitamin B complex-vitamin C-folic 1 tab PO DAILY VITAMIN 01/22/23 10/08/23 History acid 0.8 mg tablet (Leonela-Herbie) clopidogrel 75 mg tablet 75 mg PO DAILY HEART #90 tabs 02/13/23 Unknown Rx dulaglutide 0.75 mg/0.5 mL 0.75 mg subcut QWEEK diabetes 04/10/23 10/13/23 History subcutaneous pen injector (Trulicity) amlodipine 10 mg tablet 10 mg PO DAILY #30 tabs 04/11/23 Unknown Rx metoprolol succinate 200 mg 200 mg PO BID #60 tabs 04/11/23 10/08/23 Rx tablet,extended release 24 hr cinacalcet 30 mg tablet 30 mg PO DAILY 05/04/23 Unknown History cinacalcet 60 mg tablet 120 mg PO DAILY 05/04/23 Unknown History furosemide 40 mg tablet 40 mg PO DAILY 05/04/23 Unknown History gabapentin 300 mg capsule 300 mg PO QHS 05/04/23 Unknown History nitroglycerin 0.4 mg sublingual 0.4 mg buccal Q5M PRN chest pain 05/04/23 Unknown History tablet apixaban 5 mg tablet (Eliquis) 5 mg PO BID 60 days #120 tabs 05/06/23 Unknown Rx cholecalciferol (vitamin D3) 1,250 50,000 unit PO QWEEK 06/07/23 Unknown History mcg (50,000 unit) capsule fluticasone propionate 50 2 spray intranasal DAILY #18.2 mL 06/07/23 Unknown Rx mcg/actuation nasal spray,suspension nifedipine 60 mg tablet,extended 60 mg PO DAILY 06/07/23 10/08/23 History release ondansetron 4 mg disintegrating 4 mg PO Q8H PRN PRN Nausea #10 tabs 10/17/23 Unknown Rx tablet oxycodone-acetaminophen 5 mg-325 1 tab PO Q6H PRN PRN Pain 3 days 10/17/23 Unknown Rx mg tablet #12 TABLETS Allergy/AdvReac Type Severity Reaction Status Date / Time liraglutide (From Victoza) Allergy Unknown unknown Verified 06/07/23 13:57 NSAIDS (Non-Steroidal AdvReac Severe Renal Verified 06/07/23 13:57 Anti-Inflamma failure BLANCA Inhibitors AdvReac Intermediate cough Verified 06/07/23 13:57 Family History Mother Hypertension Grandmother Aneurysm Other NSTEMI, initial episode of care Stented coronary artery Surgical History History of coronary artery stent placement Stented coronary artery (01/23/23) Hx of cardiac catheterization (~01/23/23) History of angioplasty of peripheral vessel (07/2021) Presence of surgically created arteriovenous shunt for hemodialysis (07/2017) Social History household members: spouse housing: house Smoking Status: Never smoker alcohol intake: never substance use type: does not use ROS ROS ED Constitutional Constitutional ED: Denies chills, fever(s) or sweats Eyes Eyes: Denies change in vision ENT ENT ED: Denies dysphagia or sore throat Cardiovascular Cardiovascular: Denies chest pain, leg edema, palpitations or racing heartbeat Respiratory/Chest Respiratory/Chest: Denies cough, dyspnea or dyspnea on exertion Gastrointestinal Gastrointestinal: Reports nausea; Denies abdominal pain, diarrhea or vomiting Genitourinary Genitourinary ED: Denies dysuria, hematuria or urinary frequency Musculoskeletal Musculoskeletal: Reports back pain; Denies extremity pain or neck pain Integumentary Denies rash or wounds Neurologic Neurologic: Denies headache(s), paresthesias or weakness EXAM Physical Exam Const Vital Signs: 10/17/23 06:15 10/17/23 06:18 Temperature 96.5 F L 97 F L Temperature Source Temporal Temporal Pulse Rate 78 81 Respiratory Rate 18 21 H Blood Pressure 150/74 H 150/74 H Blood Pressure Mean 99 99 Pulse Ox 100 95 Oxygen Delivery Method Room Air Room Air Positive well nourished and well developed Constitutional Narrative: Nontoxic, mild uncomfortable General Appearance ED: well developed HEENT Reports moist mucous membranes normocephalic and atraumatic Eyes EOMs intact bilaterally and conjunctivae normal General Eye ED: Yes normal appearance of both eyes Neck no lymphadenopathy and supple General: Negative for tenderness Chest Wall Chest: Negative for tenderness Resp normal respiratory effort and normal air movement Effort and Inspection: symmetric chest movement; Negative for respiratory distress Cardio regular rate, regular rhythm and no murmurs Peripheral Pulses: pulses 2+ throughout GI normal to inspection, nondistended, normoactive bowel sounds GI Narrative: Mild left lower quadrant tenderness Palpation: Negative for guarding or rebound tenderness present Back/Spine no CVA tenderness and no thoracic nor lumbar tenderness Back/Spine Narrative: No rash left flank Extremity normal to inspection Extremity Narrative: Left forearm fistula with a positive thrill General Extremety ED: Negative for edema or tenderness General Extremity: Negative for edema Neuro oriented x3 and no sensory deficits noted Sensorium / Orientation: awake and alert Skin no rashes or lesions noted and no wounds MDM MDM MDM Narrative Medical decision making narrative: Interventions / MDM: Differential diagnosis: Kidney stone, diverticulitis, end-stage renal disease on dialysis, shingles Diagnosis considered but do not suspect: No clinical pneumonia My EKG interpretation: N/A Imaging independently reviewed and interpreted by myself: CT abdomen pelvis: No obstructive kidney stones. Lower lung cage edema versus infiltrate per radiology. External documents reviewed: N/A Test considered but not ordered:N/A ED course: Patient presenting with sudden flank pain rating to his groin. Renal stone protocol initiated. Will avoid NSAIDs with him on dialysis at this time. Morphine Zofran fluids started. Basic labs and CT scan. 0800: Additional pain medicines required help with pain. Is more comfortable. Labs with chronic anemia hemoglobin 10.3. He had end-stage renal disease. Potassium 5.3. CT scan results negative for obstructive kidney stones. Reported pleural edema versus infiltrate. Denies any productive cough. He denies any dyspnea. 95% on room air. I discussed with patient monitoring for rash as pain follows a dermatome pattern on his back. There is no current rash. He is treated for his pain continue oxycodone and Zofran as needed. Nursing did discuss with dialysis center, he will be discharged and can go to dialysis for outpatient treatment. All questions were answered. Re-evaluation: stable Disposition discussed with patient/family/significant other: Patient Case discussed with consulting clinician: N/A This note was generated with [employer] dictation software. It may contain incorrect words, spelling, and punctuation that were not noted in checking the note before signing. Lab Data Attestation: I reviewed the patient's lab results. Labs: Laboratory Results - last 24 hr 10/17/23 06:33 WBC 7.7 RBC 3.74 L Hgb 10.3 L Hct 32.0 L MCV 85.6 MCH 27.5 MCHC 32.2 RDW Std Deviation 65.4 H RDW Coeff of Kyle 20.9 H Plt Count 205 MPV 9.0 Immature Gran % (Auto) 0.500 Neut % (Auto) 76.6 H Lymph % (Auto) 10.8 L Cameron % (Auto) 9.1 Eos % (Auto) 2.5 Baso % (Auto) 0.5 Absolute Neuts (auto) 5.9 Absolute Lymphs (auto) 0.83 Nucleated RBC % 0 RBC Morphology N CHROM Anisocytosis 1+ Sodium 132 L Potassium 5.3 H Chloride 96 L Carbon Dioxide 30.0 Anion Gap 6 BUN 49 H Creatinine 8.97 H* Est GFR (MDRD) Af Amer 8 L Est GFR (MDRD) Non-Af 7 L BUN/Creatinine Ratio 5.5 L Glucose 138 H Calcium 8.7 Radiography Diagnostic Testing: Clinical Impression(s) from Imaging Studies Abdomen/Pelvis CT 10/17/23 06:22 IMPRESSION: Atrophic kidneys. No urolithiasis or hydronephrosis. Moderate ascites. Colonic diverticulosis without evidence of acute diverticulitis. Patchy opacities in the lung bases nonspecific may be inflammatory/pneumonitis or edema. Diffuse subcutaneous edema with irregular nodular structures throughout the body wall, uncertain etiology. Electronically Signed: Mary Ramos MD at 7:52 EDT Reading Location ID and State: [address] [place] [address] Tel , Service support , Discharge Plan Triage Chief Complaint: Flank Pain ED Provider: Mor Ramos Dx/Rx/DC Orders Clinical Impression: Acute left flank pain, ESRD on hemodialysis, History of diabetes mellitus Instructions: ED Flank Pain, Uncertain Cause Prescriptions: New oxycodone-acetaminophen 5-325 mg tablet 1 tab PO Q6H PRN PRN (Reason: Pain) 3 Days Qty: 12 0RF ondansetron 4 mg tablet,disintegrating 4 mg PO Q8H PRN PRN (Reason: Nausea) Qty: 10 0RF No Action (DME) blood-glucose meter [FreeStyle [place] Lite] Kit See Rx Instructions .ROUTE .MEDSUPPLY Qty: 1 0RF Rx Instructions: As directed (DME) pen needle, diabetic [BD Ultra-Fine [place] Pen Needle] 32 gauge x 5/32 needle See Rx Instructions .ROUTE .MEDSUPPLY Qty: 400 1RF Rx Instructions: 4 times daily (DME) lancets [FreeStyle Lancets] 28 gauge misc See Rx Instructions .ROUTE .MEDSUPPLY Qty: 100 5RF Rx Instructions: As directed losartan 50 mg tablet 50 mg PO DAILY atorvastatin 80 mg tablet 80 mg PO QHS ezetimibe 10 mg tablet 10 mg PO DAILY albuterol sulfate 90 mcg/actuation HFA aerosol inhaler 2 puff inhalation Q6H PRN (Reason: Shortness Of Breath Or Wheezing) Levemir FlexTouch U100 Insulin 100 unit/mL (3 mL) insulin pen 40 unit subcut QHS clopidogrel 75 mg tablet 75 mg PO DAILY Qty: 90 3RF cholecalciferol (vitamin D3) 1,250 mcg (50,000 unit) capsule 50,000 unit PO QWEEK Patient Comments: take 1 capsule by mouth ONE TIME A WEEK takes it on Tuesdays nifedipine 60 mg tablet extended release 60 mg PO DAILY fluticasone propionate 50 mcg/actuation spray,suspension 2 spray intranasal DAILY Qty: 18.2 3RF Rx Instructions: administer into each nostril omeprazole 20 MG capsule,delayed release(DR/EC) 20 mg PO BIDAC Velphoro 500 mg tablet,chewable 1,500 mg PO TID Patient Comments: CHEW & SWALLOW 3 TABLETS THREE TIMES A DAY WITH MEALS Trulicity 0.75 mg/0.5 mL pen injector 0.75 mg SUBCUT QWEEK Patient Comments: Inject 0.75 mg subcutaneously one time a week. Inject dose once per week. Discard Pen After Rx Instructions: pt unsure of dosage amount metoprolol succinate 200 mg Tablet Extended Release 24 Hr 200 mg PO BID Qty: 60 2RF amlodipine 10 mg Tablet 10 mg PO DAILY Qty: 30 2RF Leonela-Herbie 0.8 mg tablet 1 tab PO DAILY trazodone 50 mg tablet 50 mg PO QHS sertraline 50 mg tablet 50 mg PO DAILY lanthanum 1,000 mg tablet,chewable 3,000 mg PO TIDCM quinine-vitamin E Capsule 1 cap PO DAILY insulin aspart U-100 [Novolog FlexPen U-100 Insulin] 100 unit/mL (3 mL) insulin pen 15 unit SC .COMPLEX Rx Instructions: 15 units subcutaneously TID CM cinacalcet 30 mg tablet 30 mg PO DAILY Patient Comments: TAKE 1 TABLET BY MOUTH DAILY WITH 60 MG TABLETS FOR TOTAL DAILY DOSE OF 150 MG cinacalcet 60 mg tablet 120 mg PO DAILY Patient Comments: TAKE 2 TABLETS BY MOUTH DAILY furosemide 40 mg tablet 40 mg PO DAILY Patient Comments: TAKE 1 TABLET BY MOUTH EVERY DAY gabapentin 300 mg capsule 300 mg PO QHS Patient Comments: Take 1 capsule by mouth daily at bedtime nitroglycerin 0.4 mg tablet, sublingual 0.4 mg buccal Q5M PRN (Reason: chest pain) Patient Comments: D Eliquis 5 mg Tablet 5 mg PO BID 60 Days Qty: 120 0RF Primary Care Provider: Norris Mcqueen Referrals: Norris Mcqueen MD [Primary Care Provider] - 5-7 Days Activity Restrictions/Additional Instructions: CT scan negative for kidney stones.Nursing discussed with her dialysis center, they are able to get you for dialysis today. Print Language: Sami Disposition Disposition: Home, Self Care
[2023-10-17] MEDS: Ondansetron 4 MG/2 ML Vial IV (06:30)
[2023-10-17] MEDS: Morphine 4 MG/ML Syringe IV ×2 (06:31→07:22)
[2023-10-17] MEDS: 0.9% Normal Saline (1000mL) 1,000 ML 250 ML IV (06:38)
[2023-10-17 06:53] LABS: Absolute Lymphocyte Count 0.83 X10^3/uL (0.83-4.51); Absolute Neutrophil Count 5.9 X10^3/uL (2.0-7.7); Basophil# 0.04 X10^3/uL; Basophil% 0.5 % (0-1); Eosinophil# 0.19 X10^3/uL; Eosinophils% 2.5 % (0-5); Hemoglobin 10.3 g/dL (13.0-16.5); Lymphocyte # 0.83 X10^3/ul (0.83-4.51); Lymphocyte % 10.8 % (19-41); Mean Corp Hgb Conc 32.2 g/dL (32-36); Mean Corpuscular Hgb 27.5 pg (27.0-32.0); Mean Corpuscular Volume 85.6 fL (80-94); Monocyte% 9.1 % (0-10); NRBC Flagged by Analyzer 0 % (0-5); Neutrophil # 5.91 X10^3/uL (2.7-7.7); Neutrophil % 76.6 % (47-70); POSITIVE MORPHOLOGY YES; Platelet Count 205 K/mm3 (150-450); RBC Distribution Width CV 20.9 % (11.6-14.6); RBC Distribution Width SD 65.4 fl (35.1-43.9); Red Blood Count 3.74 M/mm3 (4.6-6.2); White Blood Count 7.7 K/mm3 (4.4-11.0)
[2023-10-17 07:15] LABS: Anion Gap 6 (5-15); BUN 49 mg/dL (7-18); BUN/Creat Ratio 5.5 RATIO (10-20); Calcium,Total 8.7 mg/dL (8.5-10.1); Chloride 96 mmol/L (98-107); Creatinine, Serum 8.97 mg/dL (0.70-1.30); EST Glomerular Filtration Rate 7 mL/min (>60); Est Glom Filt Rate - Afr Amer 8 mL/min (>60); Glucose 138 mg/dL (74-106); Potassium 5.3 mmol/L (3.5-5.1); Sodium Level 132 mmol/L (136-145)
[2023-10-17 07:50] LABS: Differential Indicated SCAN CRITERIA MET
[2023-10-17 08:06] LABS: Anisocytosis 1+; Red Cell Morphology N CHROM NORMAL (NORM C&C)
[2023-10-17 08:18] VITALS: BP 140/82; PULSE 80; RESP 20; TEMP 36.6; O2SAT 99
== END 2023-10-17 08:19 | disposition home or self-care (01) ==
PROVIDERS: Emergency Provider Emergency Medicine; PCP Family Medicine; Visit Provider Emergency Medicine
DX: R10.9 Unspecified abdominal pain (principal); I13.2 Hypertensive heart and chronic kidney disease with heart failure and with stage 5 chronic kidney disease, or end stage renal disease; N18.6 End stage renal disease; I50.41 Acute combined systolic (congestive) and diastolic (congestive) heart failure; J44.9 Chronic obstructive pulmonary disease, unspecified; I48.0 Paroxysmal atrial fibrillation; E11.22 Type 2 diabetes mellitus with diabetic chronic kidney disease; Z79.4 Long term (current) use of insulin; Z99.2 Dependence on renal dialysis; I25.10 Atherosclerotic heart disease of native coronary artery without angina pectoris; Z95.5 Presence of coronary angioplasty implant and graft; Z79.02 Long term (current) use of antithrombotics/antiplatelets; Z79.01 Long term (current) use of anticoagulants; I25.2 Old myocardial infarction; G47.33 Obstructive sleep apnea (adult) (pediatric); Z99.89 Dependence on other enabling machines and devices; E78.00 Pure hypercholesterolemia, unspecified; K21.9 Gastro-esophageal reflux disease without esophagitis; Z79.899 Other long term (current) drug therapy; F41.9 Anxiety disorder, unspecified
CPT/HCPCS: 74176; 80048; 85025; 96361; 96374; 96375; 96376; 99283; A4216; J2405

== ENCOUNTER 2024-02-21 09:17 | Inpatient (IN) | payer OTHER, MEDICARE, SELFPAY ==
[2024-02-21] VITALS (13 sets, daily range): BP systolic 122–174; BP diastolic 75–118; PULSE 69–78; RESP 11–25; TEMP 35.7–36.6; O2SAT 93–98; BMI 42.8; BMI 42.5
--- NOTE | 2024-02-21 09:24 | EKG12_ITS ---
Test Reason : CP Blood Pressure : / mmHG Vent. Rate : 073 BPM Atrial Rate : 073 BPM P-R Int : 136 ms QRS Dur : 092 ms QT Int : 452 ms P-R-T Axes : 037 -31 249 degrees QTc Int : 497 ms Normal sinus rhythm Left axis deviation Moderate voltage criteria for LVH, may be normal variant ( R in aVL , [place] product ) Marked ST abnormality, possible inferior subendocardial injury Prolonged QT Abnormal ECG Confirmed by GA WILLETT, RADHA ([id number]), news copy editor JEF MATIAS ([id number]) on 02/22/2024 9:53:43 AM Referred By: Confirmed By:RADHA KOROMA MD
--- NOTE | 2024-02-21 09:30 | RAD_ITS ---
STUDY: X-RAY CHEST REASON FOR EXAM: Male, 53 years old. Chest pain TECHNIQUE: Single AP portable view of the chest. COMPARISON: Comparison is made with prior study dated October 08, 2023. FINDINGS: EKG electrodes are seen. Mild increased linear markings in the left midlung suggestive of scarring. This is unchanged. There is no demonstrated pleural abnormality. Normal size heart. Normal mediastinum and erick. Normal visualized pulmonary arteries. There is atherosclerotic calcification of the aortic arch with tortuosity. There are degenerative changes of the visualized thoracic spine. Normal visualized ribs, clavicles, and shoulders. There is no demonstrated abnormality of the visualized soft tissue structures of the upper abdomen. RAD/Chest 1 View (Portable) IMPRESSION: Stable mild linear markings in the left midlung suggestive of linear scarring. Electronically Signed: Kevin Bustos MD at 10:13 EDT ,
[2024-02-21 09:38] LABS: Absolute Lymphocyte Count 0.74 X10^3/uL (0.83-4.51); Absolute Neutrophil Count 4.6 X10^3/uL (2.0-7.7); Basophil# 0.04 X10^3/uL; Basophil% 0.7 % (0-1); Eosinophil# 0.13 X10^3/uL; Eosinophils% 2.1 % (0-5); Hemoglobin 11.1 g/dL (13.0-16.5); Lymphocyte # 0.74 X10^3/ul (0.83-4.51); Lymphocyte % 12.1 % (19-41); Mean Corp Hgb Conc 32.6 g/dL (32-36); Mean Corpuscular Hgb 28.6 pg (27.0-32.0); Mean Corpuscular Volume 87.6 fL (80-94); Mean Platelet Vol. 8.7 fl (6.2-12.0); Monocyte# 0.61 X10^3/uL; NRBC Flagged by Analyzer 0 % (0-5); Neutrophil # 4.58 X10^3/uL (2.7-7.7); Neutrophil % 74.9 % (47-70); Platelet Count 254 K/mm3 (150-450); RBC Distribution Width CV 18.8 % (11.6-14.6); RBC Distribution Width SD 59.7 fl (35.1-43.9); Red Blood Count 3.88 M/mm3 (4.6-6.2); White Blood Count 6.1 K/mm3 (4.4-11.0)
[2024-02-21 10:18] LABS: Anion Gap 7 (5-15); BUN 40 mg/dL (7-18); BUN/Creat Ratio 5.5 RATIO (10-20); Calcium,Total 9.1 mg/dL (8.5-10.1); Chloride 96 mmol/L (98-107); Creatinine, Serum 7.23 mg/dL (0.70-1.30); EST Glomerular Filtration Rate 9 mL/min (>60); Est Glom Filt Rate - Afr Amer 10 mL/min (>60); Estimated Creatinine Clearance 15.89 ml/min; Glucose 68 mg/dL (74-106); Potassium 4.7 mmol/L (3.5-5.1); Sodium Level 135 mmol/L (136-145); Troponin-I HS (w/2H Reflex) 7302 pg/mL (3.0-78.0)
[2024-02-21] MEDS: Aspirin 325 MG Tablet PO (10:58)
--- NOTE | 2024-02-21 10:59 | ED.VIS.CHEST ---
HPI History of Present Illness Chief Complaint: Chest Pain Informant: patient Narrative Narrative: 63-year-old male history of diabetes end-stage renal disease and coronary artery disease presenting to the emergency department with a chief complaint of abnormal EKG. Patient states that he gets dialysis Sunday. He states that in December he was admitted to [facility] then transferred to [facility] where he underwent a heart catheterization and stent placement. It is unclear of where in the heart he had the stent placed. He had had prior LAD stenting at this institution in 2022. He states over the past 3 weeks has had intermittent chest pressure going into both arms which he attributed to gas as he associated it with eating. However it did sometimes occur at night and sometimes occurring without eating. Sometimes lasting hours sometimes less. He had an appointment with his doctor today who performed an EKG and sent him over due to EKG changes and particularly lead II. There is appears to be new changes compared to an EKG he is able to show me using MyChart from December. [facility] Medical History Anxiety Atrial fibrillation Chest pain Non-ST elevation VA (NSTEMI) Atrial flutter Dialysis patient CPAP (continuous positive airway pressure) dependence Pneumonia due to COVID-19 virus Myocardial infarct VERÓNICA (obstructive sleep apnea) Arteriosclerotic cardiovascular disease Dyslipidemia Elevated troponin ESRD on dialysis Wears glasses Wears partial dentures Insulin dependent diabetes mellitus Diabetes High cholesterol Non-smoker COPD (chronic obstructive pulmonary disease) Sleep apnea History of stress test History of echocardiogram Leg cramps Hypertension Cardiology follow-up encounter History of CHF (congestive heart failure) Fistula Hypotension Degenerative disc disease, cervical Diabetes mellitus, type II, insulin dependent Diabetic polyneuropathy (04/2017) GERD (gastroesophageal reflux disease) Chronic kidney disease with end stage renal failure on dialysis Non-ischemic cardiomyopathy Essential (primary) hypertension Syncope (07/2018) Problem with dialysis access Anemia of chronic renal failure, stage 4 (severe) Demand ischemia Morbid obesity Systolic and diastolic CHF, acute Elevated troponin Home Medications ?Medication ?Instructions ?Recorded ?Last Taken ?Type omeprazole 20 mg capsule,delayed 20 mg PO BIDAC gerd 08/08/18 10/08/23 History release blood-glucose meter (FreeStyle #1 ea 12/22/19 Unknown Rx [place] Lite kit) lancets 28 gauge (FreeStyle #100 ea 12/22/19 Unknown Rx Lancets) pen needle, diabetic 32 gauge x #400 ea 12/22/19 Unknown Rx 5/32 (BD Ultra-Fine [place] Pen Needle) albuterol sulfate 90 mcg/actuation 2 puff inhalation Q6H PRN 07/26/21 01/21/23 History aerosol inhaler Shortness Of Breath Or Wheezing atorvastatin 80 mg tablet 80 mg PO QHS CHOLESTEROL 07/26/21 01/21/23 History ezetimibe 10 mg tablet 10 mg PO DAILY HIGH CHOLESTEROL 07/26/21 01/21/23 History insulin detemir U-100 100 unit/mL 40 unit subcut QHS BLOODSUGAR 07/26/21 01/21/23 History (3 mL) subcutaneous pen (Levemir FlexTouch U-100 Insulin) losartan 50 mg tablet 50 mg PO DAILY BLOOD PRESSURE 07/26/21 10/08/23 History sucroferric oxyhydroxide 500 mg 1,500 mg PO TID KIDNEY HEALTH 02/20/22 10/08/23 History chewable tablet (Velphoro) insulin aspart U-100 100 unit/mL 15 unit subcut .COMPLEX BLOOD SUGAR 01/22/23 01/21/23 History (3 mL) subcutaneous pen (Novolog FlexPen U-100 Insulin aspart) lanthanum 1,000 mg chewable tablet 3,000 mg PO TIDCM for kidneys 01/22/23 01/21/23 History quinine-vitamin E capsule 1 cap PO DAILY CRAMPS 01/22/23 10/08/23 History sertraline 50 mg tablet 50 mg PO DAILY ANTI DEPRESSANT 01/22/23 10/08/23 History trazodone 50 mg tablet 50 mg PO QHS SLEEP 01/22/23 10/07/23 History vitamin B complex-vitamin C-folic 1 tab PO DAILY VITAMIN 01/22/23 10/08/23 History acid 0.8 mg tablet (Leonela-Herbie) clopidogrel 75 mg tablet 75 mg PO DAILY HEART #90 tabs 02/13/23 Unknown Rx dulaglutide 0.75 mg/0.5 mL 0.75 mg subcut QWEEK diabetes 04/10/23 10/13/23 History subcutaneous pen injector (Trulicity) amlodipine 10 mg tablet 10 mg PO DAILY #30 tabs 04/11/23 Unknown Rx cinacalcet 30 mg tablet 30 mg PO DAILY 05/04/23 Unknown History cinacalcet 60 mg tablet 120 mg PO DAILY 05/04/23 Unknown History gabapentin 300 mg capsule 300 mg PO QHS 05/04/23 Unknown History nitroglycerin 0.4 mg sublingual 0.4 mg buccal Q5M PRN chest pain 05/04/23 Unknown History tablet apixaban 5 mg tablet (Eliquis) 5 mg PO BID 60 days #120 tabs 05/06/23 Unknown Rx cholecalciferol (vitamin D3) 1,250 50,000 unit PO QWEEK 06/07/23 Unknown History mcg (50,000 unit) capsule fluticasone propionate 50 2 spray intranasal DAILY #18.2 mL 06/07/23 Unknown Rx mcg/actuation nasal spray,suspension nifedipine 60 mg tablet,extended 60 mg PO DAILY 06/07/23 10/08/23 History release ondansetron 4 mg disintegrating 4 mg PO Q8H PRN PRN Nausea #10 tabs 10/17/23 Unknown Rx tablet oxycodone-acetaminophen 5 mg-325 1 tab PO Q6H PRN PRN Pain 3 days 10/17/23 Unknown Rx mg tablet #12 TABLETS aspirin 81 mg tablet,delayed 81 mg PO DAILY 02/21/24 Unknown History release buspirone 15 mg tablet 15 mg PO BID 02/21/24 Unknown History furosemide 80 mg tablet 80 mg PO DAILY 02/21/24 Unknown History glimepiride 4 mg tablet 4 mg PO BID 02/21/24 Unknown History lansoprazole 30 mg capsule,delayed 30 mg PO BID 02/21/24 Unknown History release metoprolol succinate 100 mg 100 mg PO BID 02/21/24 Unknown History tablet,extended release 24 hr Allergy/AdvReac Type Severity Reaction Status Date / Time liraglutide (From Victoza) Allergy Unknown unknown Verified 02/21/24 09:24 NSAIDS (Non-Steroidal AdvReac Severe Renal Verified 02/21/24 09:24 Anti-Inflamma failure BLANCA Inhibitors AdvReac Intermediate cough Verified 02/21/24 09:24 Family History Mother Hypertension Grandmother Aneurysm Other NSTEMI, initial episode of care Stented coronary artery Surgical History History of coronary artery stent placement Stented coronary artery (01/23/23) Hx of cardiac catheterization (~01/23/23) History of angioplasty of peripheral vessel (07/2021) Presence of surgically created arteriovenous shunt for hemodialysis (07/2017) Social History household members: spouse housing: house Smoking Status: Never smoker alcohol intake: never substance use type: does not use ROS ROS ED Constitutional Constitutional ED: Denies chills, fever(s) or weight loss Eyes Eyes: Denies change in vision or diplopia ENT ENT ED: Denies ear pain, rhinorrhea or sore throat Cardiovascular Cardiovascular: Reports as per HPI and chest pain; Denies orthopnea, palpitations or racing heartbeat Respiratory/Chest Respiratory/Chest: Denies cough, dyspnea or orthopnea Gastrointestinal Gastrointestinal: Denies abdominal pain, diarrhea, nausea or vomiting Genitourinary Genitourinary ED: Denies dysuria, hematuria or urinary frequency Musculoskeletal Musculoskeletal: Denies arthralgias or myalgias Integumentary Denies abscess or rash Neurologic Neurologic: Denies headache(s) or weakness Psychiatric Psychiatric: Denies anxiety, depression, suicidal ideation or suicidal thoughts Endocrine Endocrinology: Denies polydipsia, polyphagia or polyuria Allergic/Immunologic Allergic/Immunologic ED: Denies mouth swelling, tongue swelling or urticaria EXAM Physical Exam Const Vital Signs: 02/21/24 09:19 02/21/24 09:24 02/21/24 09:25 Temperature 97.7 F L Temperature Source Oral Pulse Rate 78 Respiratory Rate 16 Respiratory Effort Normal Non-Labored Respiratory Pattern Normal Blood Pressure 139/97 H Blood Pressure Mean 111 Pulse Ox 94 Oxygen Delivery Method Room Air Room Air 02/21/24 10:46 02/21/24 11:05 02/21/24 12:10 Temperature 96.8 F L 97.5 F L Temperature Source Oral Oral Pulse Rate 72 74 69 Respiratory Rate 15 11 L 12 Respiratory Effort Respiratory Pattern Blood Pressure 151/100 H 156/111 H 122/76 H Blood Pressure Mean 117 126 91 Pulse Ox 95 96 95 Oxygen Delivery Method Room Air Room Air 02/21/24 13:00 02/21/24 14:00 02/21/24 15:00 Temperature Temperature Source Pulse Rate 76 77 78 Respiratory Rate 18 15 18 Respiratory Effort Respiratory Pattern Blood Pressure 136/75 H 152/106 H 160/118 H Blood Pressure Mean 95 121 132 Pulse Ox 93 95 98 Oxygen Delivery Method Room Air Room Air Room Air 02/21/24 16:00 Temperature Temperature Source Pulse Rate 76 Respiratory Rate 14 Respiratory Effort Respiratory Pattern Blood Pressure 168/106 H Blood Pressure Mean 126 Pulse Ox 94 Oxygen Delivery Method Room Air Positive well nourished, well developed and obese General Appearance ED: well developed and NAD Nutritional Appearance: obese HEENT Reports normocephalic, head/scalp atraumatic and moist mucous membranes Eyes PERRL and EOMs intact bilaterally Neck no lymphadenopathy, supple and no JVD Resp normal respiratory effort and clear to auscultation bilaterally Cardio regular rate, regular rhythm and no murmurs GI normal to inspection, nondistended, normoactive bowel sounds and non-tender Palpation: soft Back/Spine no CVA tenderness and normal ROM Extremity Extremity Narrative: Fistula left forearm General Extremety ED: Yes edema General Extremity: edema bilateral lower extremity Details: mild Neuro oriented x3 and CN's II-XII intact bilaterally Sensorium / Orientation: alert Motor Exam: strength 5/5 throughout Psych mental status grossly normal Mood & Affect: Negative for depressed or tearful Skin no rashes or lesions noted and no wounds Heart Score History: Highly Suspicious ECG: Significant ST-Depression Age: >45 - <65 years Risk Factors: >/= 3 Risk Factors or History of CAD Troponin: >/=3 x Normal Limit Score: 9 MDM MDM MDM Narrative Medical decision making narrative: Differential diagnosis includes acute coronary syndrome (NSTEMI/STEMI) anemia electrolyte abnormality My independent interpretation of the chest x-ray is no acute process. Hemoglobin 11.1 platelet count of 254 white count 6.1. Sodium 135 creatinine 7.23 with a BUN of 40 troponin is elevated at 7302. EKG demonstrates some ST depression in lead II and very minimally in lead III but with T wave inversion which those are all new compared to prior. Patient and his were made aware of the results and they are requesting transfer to [facility]. I spoke initially with Dr. Vazquez from cardiology and later the hospitalist and the patient has been accepted. They are requesting that the patient be placed on a heparin drip. We are awaiting bed assignment and the patient has been asymptomatic since arrival here in the department. The patient has been waiting in the afternoon for a bed assignment but has not yet received 1. There is no timeline for the receiving facility to give us a bed. Patient states that if he is going to be waiting we can just admit him here for his heart cath. I spoke with Dr. Edwards and then her hospitalist. History & Record Review Discussion w/independent historian: Patient and Family Lab Data Attestation: I reviewed the patient's lab results. Labs: Laboratory Results - last 24 hr 02/21/24 02/21/24 09:30 11:48 WBC 6.1 RBC 3.88 L Hgb 11.1 L Hct 34.0 L MCV 87.6 MCH 28.6 MCHC 32.6 RDW Std Deviation 59.7 H RDW Coeff of Kyle 18.8 H Plt Count 254 MPV 8.7 Immature Gran % (Auto) 0.200 Neut % (Auto) 74.9 H Lymph % (Auto) 12.1 L Long % (Auto) 10.0 Eos % (Auto) 2.1 Baso % (Auto) 0.7 Absolute Neuts (auto) 4.6 Absolute Lymphs (auto) 0.74 L Nucleated RBC % 0 PT 14.9 INR 1.2 APTT 29.9 Sodium 135 L Potassium 4.7 Chloride 96 L Carbon Dioxide 32.0 Anion Gap 7 BUN 40 H Creatinine 7.23 H Estim Creat Clear Calc 15.89 Est GFR (MDRD) Af Amer 10 L Est GFR (MDRD) Non-Af 9 L BUN/Creatinine Ratio 5.5 L Glucose 68 L Calcium 9.1 Troponin I High Sens 7302 H* 7030 H* Radiography Diagnostic Testing: Clinical Impression(s) from Imaging Studies Chest X-Ray 02/21/24 09:30 IMPRESSION: Stable mild linear markings in the left midlung suggestive of linear scarring. Electronically Signed: Kevin Bustos MD at 10:13 EDT , Management Discussion w/another healthcare provider: Hospitalist ([facility] Hospitalist/ [facility] Dr [place]) and Index Editor ([facility] Cardiology (Dr. Vazquez) / [facility] Cardiology (Dr Nevarez)) Critical Care Time Critical Care Time: Yes Critical care time (excluding procedures): 30-74 minutes (35 min), Including time spent:, Discussing w/Patient &/or Family/Envelope Fold Operator, Discussing w/Consultants, Arranging Admission or Transfer and Performing Direct Patient Care at Bedside Discharge Plan Dx/Rx/DC Orders Clinical Impression: Essential (primary) hypertension, ESRD on dialysis, Paroxysmal atrial fibrillation, NSTEMI, initial episode of care, Arteriosclerotic cardiovascular disease Disposition Disposition: Acute Care Hospital [facility]
[2024-02-21 11:00] LABS: International Normalized Ratio 1.2; Prothrombin Time (Protime)PT. 14.9 SECONDS (11.7-14.9)
[2024-02-21] MEDS: Heparin Injection (Vial) 5,000 UNIT/ML VIAL 10500 UNIT IV (11:00)
[2024-02-21] MEDS: HEPARIN/D5w 25,000 UNITS 25,000 UNITS/250 ML IV.SOLN. 17 UNITS CONT INF (11:00)
[2024-02-21 11:01] LABS: Partial Thromboplast Time 29.9 Seconds (24.1-36.2)
[2024-02-21 11:33] LABS: Reflex Troponin-HS? (from REC) Y
[2024-02-21 12:29] LABS: Troponin-I HS 7030 pg/mL (3.0-78.0)
[2024-02-21 17:02] LABS: Troponin-I HS 5600 pg/mL (3.0-78.0)
--- NOTE | 2024-02-21 17:18 | HP.PCM.HOS_ITS ---
HPI - General General Date of Admission: 02/21/24 Date of Service: 02/21/24 Chief Complaint: Chest pain HPI Narrative LISA MASTERSON, is a 53-year-old male history of end-stage renal disease on HD, coronary artery disease, diabetes, VERÓNICA who presented to [facility] 02/21/2024 with complaint of abnormal EKG. patient had stent in [place] in December but unclear where, also had prior LAD stenting in 2022. Over the past 3 weeks he has intermittent chest pressure into both arms which he attributed to gas that he associated with eating. Sometimes was occurring at night and sometimes occurred with eating and lasted for various amounts of time. He had appointment with his doctor today who performed an EKG and sent him over due to EKG changes. The changes are new since his EKG in December. in ED EKG showed ST depressions in lead II and minimally in lead III with T wave inversions which are new. Patient was found to have troponin of 7302 with repeat of 7030. Given his recent intervention at [place] patient and requested transfer. He was accepted for transfer and asked that patient be placed on heparin drip. Patient waited in the ED for period of time with no timeline for receiving a bed and ultimately was willing to be admitted here for his heart catheterization. this was discussed with cardiology and ultimately hospitalist contacted for admission. Pt evaluated at bedside. He reports that the pain was in the center stress and go to his arms, often was associated with shortness of breath and was usually worse when he ate but did not always have that direct association. Patient has chronic cough and has a little bit of a headache, denies any other new or acute complaints. Reports compliance with his medicine and with dialysis. Due for dialysis again tomorrow. Does still make urine reports no change in this, no GI complaints, no swelling in extremities reported. Patient currently chest pain-free and has not had any chest pain since being in the ED today [facility] Medical History Anxiety Atrial fibrillation Chest pain Non-ST elevation [place] (NSTEMI) Atrial flutter Dialysis patient CPAP (continuous positive airway pressure) dependence Pneumonia due to COVID-19 virus Myocardial infarct VERÓNICA (obstructive sleep apnea) Arteriosclerotic cardiovascular disease Dyslipidemia Elevated troponin ESRD on dialysis Wears glasses Wears partial dentures Insulin dependent diabetes mellitus Diabetes High cholesterol Non-smoker COPD (chronic obstructive pulmonary disease) Sleep apnea History of stress test History of echocardiogram Leg cramps Hypertension Cardiology follow-up encounter History of CHF (congestive heart failure) Fistula Hypotension Degenerative disc disease, cervical Diabetes mellitus, type II, insulin dependent Diabetic polyneuropathy (04/2017) GERD (gastroesophageal reflux disease) Chronic kidney disease with end stage renal failure on dialysis Non-ischemic cardiomyopathy Essential (primary) hypertension Syncope (07/2018) Problem with dialysis access Anemia of chronic renal failure, stage 4 (severe) Demand ischemia Morbid obesity Systolic and diastolic CHF, acute Elevated troponin Home Medications ?Medication ?Instructions ?Recorded ?Last Taken ?Type blood-glucose meter (FreeStyle #1 ea 12/22/19 Unknown Rx [place] Lite kit) lancets 28 gauge (FreeStyle #100 ea 12/22/19 Unknown Rx Lancets) pen needle, diabetic 32 gauge x #400 ea 12/22/19 Unknown Rx (BD Ultra-Fine [place] Pen Needle) albuterol sulfate 90 mcg/actuation 2 puff inhalation Q6H PRN 07/26/21 01/21/23 History aerosol inhaler Shortness Of Breath Or Wheezing atorvastatin 80 mg tablet 80 mg PO QHS CHOLESTEROL 07/26/21 02/21/24 History ezetimibe 10 mg tablet 10 mg PO DAILY HIGH CHOLESTEROL 07/26/21 02/21/24 History losartan 50 mg tablet 50 mg PO DAILY BLOOD PRESSURE 07/26/21 10/08/23 History sucroferric oxyhydroxide 500 mg 1,500 mg PO TID KIDNEY HEALTH 02/20/22 02/21/24 History chewable tablet (Velphoro) insulin aspart U-100 100 unit/mL 15 unit subcut .COMPLEX BLOOD SUGAR 01/22/23 02/21/24 History (3 mL) subcutaneous pen (Novolog FlexPen U-100 Insulin aspart) lanthanum 1,000 mg chewable tablet 3,000 mg PO TIDCM for kidneys 01/22/23 02/21/24 History sertraline 50 mg tablet 50 mg PO DAILY ANTI DEPRESSANT 01/22/23 02/21/24 History trazodone 50 mg tablet 50 mg PO QHS SLEEP 01/22/23 02/20/24 History vitamin B complex-vitamin C-folic 1 tab PO DAILY VITAMIN 01/22/23 02/21/24 History acid 0.8 mg tablet (Leonela-Herbie) clopidogrel 75 mg tablet 75 mg PO DAILY HEART #90 tabs 02/13/23 02/21/24 Rx dulaglutide 0.75 mg/0.5 mL 0.75 mg subcut QWEEK diabetes 04/10/23 02/16/24 History subcutaneous pen injector (Trulicity) amlodipine 10 mg tablet 10 mg PO DAILY . #30 tabs 04/11/23 02/21/24 Rx cinacalcet 60 mg tablet 120 mg PO DAILY . 05/04/23 02/21/24 History gabapentin 300 mg capsule 300 mg PO QHS PAIN 05/04/23 02/20/24 History nitroglycerin 0.4 mg sublingual 0.4 mg buccal Q5M PRN chest pain 05/04/23 Unknown History tablet cholecalciferol (vitamin D3) 1,250 50,000 unit PO QWEEK SUPPLEMENT 06/07/23 02/21/24 History mcg (50,000 unit) capsule fluticasone propionate 50 2 spray intranasal DAILY . #18.2 mL 06/07/23 Unknown Rx mcg/actuation nasal spray,suspension nifedipine 60 mg tablet,extended 60 mg PO DAILY . 06/07/23 10/08/23 History release ondansetron 4 mg disintegrating 4 mg PO Q8H PRN PRN Nausea #10 tabs 10/17/23 Unknown Rx tablet aspirin 81 mg tablet,delayed 81 mg PO DAILY HEART 02/21/24 02/21/24 History release buspirone 15 mg tablet 15 mg PO BID . 02/21/24 02/21/24 History furosemide 80 mg tablet 80 mg PO DAILY . 02/21/24 Unknown History glimepiride 4 mg tablet 4 mg PO BID DM 02/21/24 02/21/24 History insulin degludec 100 unit/mL (3 40 unit subcut Q24H DM 02/21/24 02/21/24 History mL) subcutaneous pen (Tresiba FlexTouch U-100 insulin) lansoprazole 30 mg capsule,delayed 30 mg PO BID GERD 02/21/24 02/21/24 History release metoprolol succinate 100 mg 100 mg PO BID HTN 02/21/24 02/21/24 History tablet,extended release 24 hr Allergy/AdvReac Type Severity Reaction Status Date / Time liraglutide (From Victoza) Allergy Unknown unknown Verified 02/21/24 09:24 NSAIDS (Non-Steroidal AdvReac Severe Renal Verified 02/21/24 09:24 Anti-Inflamma failure BLANCA Inhibitors AdvReac Intermediate cough Verified 02/21/24 09:24 Family History Mother Hypertension Grandmother Aneurysm Other NSTEMI, initial episode of care Stented coronary artery Surgical History History of coronary artery stent placement Stented coronary artery (01/23/23) Hx of cardiac catheterization (~01/23/23) History of angioplasty of peripheral vessel (07/2021) Presence of surgically created arteriovenous shunt for hemodialysis (07/2017) Social History household members: spouse housing: house Smoking Status: Never smoker alcohol intake: never substance use type: does not use ROS ROS Narrative General: Denies fever/chills HENT: Does have some headache, denies stuffy nose, denies sore throat EYES: Denies changes in vision Resp: Chronic cough, denies shortness of breath at present but gets some shortness of breath intermittently when he has the chest pain Cardiac: Denies chest pain at present but has had intermittent chest pain GI: Denies abdominal pain, denies changes in bowel, denies nausea/vomiting : Denies changes in urination Extremity: Denies swelling MSK: Denies weakness Neuro: Denies any numbness/tingling Heme: Denies any bleeding or bruising Skin: Denies rashes Psychiatric: No complaints voiced Vital Signs Vital Signs Vital Signs: 02/21/24 09:19 02/21/24 09:24 02/21/24 09:25 Temperature 97.7 F L Temperature Source Oral Pulse Rate 78 Respiratory Rate 16 Respiratory Effort Normal Non-Labored Respiratory Pattern Normal Blood Pressure 139/97 H Blood Pressure Mean 111 Pulse Ox 94 Oxygen Delivery Method Room Air Room Air 02/21/24 10:46 02/21/24 11:05 02/21/24 12:10 Temperature 96.8 F L 97.5 F L Temperature Source Oral Oral Pulse Rate 72 74 69 Respiratory Rate 15 11 L 12 Respiratory Effort Respiratory Pattern Blood Pressure 151/100 H 156/111 H 122/76 H Blood Pressure Mean 117 126 91 Pulse Ox 95 96 95 Oxygen Delivery Method Room Air Room Air 02/21/24 13:00 02/21/24 14:00 02/21/24 15:00 Temperature Temperature Source Pulse Rate 76 77 78 Respiratory Rate 18 15 18 Respiratory Effort Respiratory Pattern Blood Pressure 136/75 H 152/106 H 160/118 H Blood Pressure Mean 95 121 132 Pulse Ox 93 95 98 Oxygen Delivery Method Room Air Room Air Room Air 02/21/24 16:00 Temperature Temperature Source Pulse Rate 76 Respiratory Rate 14 Respiratory Effort Respiratory Pattern Blood Pressure 168/106 H Blood Pressure Mean 126 Pulse Ox 94 Oxygen Delivery Method Room Air Weight Weight: 131.678 kg Body Mass Index (BMI) 42.8 Physical Exam Narrative General: Alert, oriented, no apparent distress HEENT: Atraumatic, normocephalic Eyes: Anicteric, normal conjunctiva, extraocular movements grossly intact Neck: Supple Respiratory: Clear to auscultation bilaterally, normal respiratory effort Cardiovascular: Regular rate GI: Soft, nontender, nondistended Extremities: No edema Musculoskeletal: Moving all extremities Neuro: No overt focal neurological deficits Skin: Dry lower extremities, has minimal superiors to be low bit of a scab on left forearm Psych: Cooperative Results Lab / Micro Data 02/21/24 09:30 02/21/24 09:30 Labs: Laboratory Results - last 24 hr 02/21/24 09:30: WBC 6.1, RBC 3.88 L, Hgb 11.1 L, Hct 34.0 L, MCV 87.6, MCH 28.6, MCHC 32.6, RDW Std Deviation 59.7 H, RDW Coeff of Kyle 18.8 H, Plt Count 254, MPV 8.7, Immature Gran % (Auto) 0.200, Neut % (Auto) 74.9 H, Lymph % (Auto) 12.1 L, [place] % (Auto) 10.0, Eos % (Auto) 2.1, Baso % (Auto) 0.7, Absolute Neuts (auto) 4.6, Absolute Lymphs (auto) 0.74 L, Nucleated RBC % 0, PT 14.9, INR 1.2, APTT 29.9, Sodium 135 L, Potassium 4.7, Chloride 96 L, Carbon Dioxide 32.0, Anion Gap 7, BUN 40 H, Creatinine 7.23 H, Estim Creat Clear Calc 15.89, Est GFR (MDRD) Af Amer 10 L, Est GFR (MDRD) Non-Af 9 L, BUN/Creatinine Ratio 5.5 L, Glucose 68 L, Calcium 9.1, Troponin I High Sens 7302 H* 02/21/24 11:48: Troponin I High Sens 7030 H* 02/21/24 16:20: Troponin I High Sens 5600 H* Imaging Radiology Impression Chest X-Ray 02/21/24 09:30 IMPRESSION: Stable mild linear markings in the left midlung suggestive of linear scarring. Electronically Signed: Kevin Bustos MD at 10:13 EDT , Assessment & Plan Assessment/Plan (1) NSTEMI, initial episode of care: PLAN: Plan #Nstemi -Suspect type I -Patient with new EKG changes from EKG in December -Troponin 7300 in the ED and has been downtrending -Patient on heparin drip -Cardiology consult -N.p.o. at midnight -Heart healthy diet -Continue statin and aspirin and Plavix -Recent echo 10/09/23 with EF of 45 and LVH # coronary artery disease -Stent placed here in 2022 and had a stent placed last month in [place] -Patient reports compliance with his medicine -Management as above #Type 2 diabetes mellitus -Glucose checks and sliding scale insulin - continue long-acting insulin slightly lower dose than home dose and uptitrate if no hypoglycemia given glucose in ED is 68 #hx paroxysmal atrial fibrillation -Per available history -Pt in NSR -On aspirin and plavix, not currently on eliquis -Continue metoprolol #ESRD on HD Sunday/Sunday/Sunday -Consult nephrology -Potassium restricted heart healthy diet -Daily weights, I's and O's #VERÓNICA -Continue home NIPPV if applicable #GERD -Continue PPI #Morbid obesity -BMI documented as 42.9 kg/m? at time of admission -Complicates treatment, prognosis, outcomes -Recommend weight loss and lifestyle changes # History of hypertension -Continue metoprolol and amlodipine -Patient unsure if he is still taking losartan nifedipine but these do not appear to open recently filled so we will hold off on beginning these #DVT ppx: On heparin drip [place]a [place] MD Charges/Coding Visit Charges Inpatient E&M: 42523 Init Hosp L2
[2024-02-21 17:39] LABS: Partial Thromboplast Time > 200.0 Seconds (24.1-36.2)
--- NOTE | 2024-02-21 17:51 | EKG12_ITS ---
Test Reason : CP ADMIT Blood Pressure : / mmHG Vent. Rate : 074 BPM Atrial Rate : 074 BPM P-R Int : 138 ms QRS Dur : 092 ms QT Int : 444 ms P-R-T Axes : 036 -27 244 degrees QTc Int : 492 ms Normal sinus rhythm Minimal voltage criteria for LVH, may be normal variant ( R in aVL ) ST & T wave abnormality, consider inferolateral ischemia Abnormal ECG When compared with ECG of 21-FEB-2024 09:25, No significant change was found Confirmed by GA WILLETT, RADHA ([id number]), news assignment editor JEF MATIAS ([id number]) on 02/25/2024 9:59:21 AM Referred By: LISSY Confirmed By:RADHA KOROMA MD
--- NOTE | 2024-02-21 18:31 | NURSING ---
BS PRIOR TO DINNER=50, PT ASYMPTOMATIC, ORANGE JUICE GIVEN, PT EATING DINNER. WILL MONITOR
[2024-02-21 19:05] LABS: Bedside Glucose 50 mg/dL (74-106)
[2024-02-21 19:05] LABS: Bedside Glucose 94 mg/dL (74-106)
--- NOTE | 2024-02-21 20:43 | CPS ---
Patient refused PAP therapy for night time use, wearing O2 at night
[2024-02-21] MEDS: Metoprolol(XL)Succ 100 MG Tablet PO (21:12)
[2024-02-21] MEDS: traZODone 50 MG Tablet PO (21:12)
[2024-02-21] MEDS: Atorvastatin Calcium 80 MG Tablet PO (21:12)
[2024-02-21] MEDS: busPIRone 15 MG TABLET PO (21:12)
[2024-02-21] MEDS: Lansoprazole 15 MG Capsule.DR 30 MG PO (21:13)
[2024-02-21] MEDS: Gabapentin 300 MG Capsule PO (21:13)
[2024-02-21 21:40] LABS: Bedside Glucose 58 mg/dL (74-106)
[2024-02-21 22:28] LABS: Bedside Glucose 90 mg/dL (74-106)
[2024-02-22] VITALS (22 sets, daily range): BP systolic 108–288; BP diastolic 50–94; PULSE 58–75; RESP 15–18; TEMP 36.4–36.7; O2SAT 93–100; BMI 42.5; BMI 41.3
[2024-02-22 02:16] LABS: Partial Thromboplast Time 57.2 Seconds (24.1-36.2)
[2024-02-22] MEDS: Dextrose 10%-Water 250 ML 999 ML IV ×3 (03:54→13:19)
[2024-02-22 04:00] LABS: Bedside Glucose 42 mg/dL (74-106)
[2024-02-22 04:32] LABS: Bedside Glucose 158 mg/dL (74-106)
[2024-02-22] MEDS: HEPARIN/D5w 25,000 UNITS 25,000 UNITS/250 ML IV.SOLN. 14 UNITS CONT INF (05:19)
[2024-02-22 06:51] LABS: Absolute Lymphocyte Count 0.89 X10^3/uL (0.83-4.51); Absolute Neutrophil Count 4.2 X10^3/uL (2.0-7.7); Basophil# 0.03 X10^3/uL; Basophil% 0.5 % (0-1); Eosinophil# 0.21 X10^3/uL; Eosinophils% 3.5 % (0-5); Hematocrit 31.7 % (40-54); Hemoglobin 10.3 g/dL (13.0-16.5); Lymphocyte # 0.89 X10^3/ul (0.83-4.51); Lymphocyte % 14.9 % (19-41); Mean Corp Hgb Conc 32.5 g/dL (32-36); Mean Corpuscular Hgb 28.3 pg (27.0-32.0); Mean Corpuscular Volume 87.1 fL (80-94); Mean Platelet Vol. 9.3 fl (6.2-12.0); Monocyte# 0.63 X10^3/uL; Monocyte% 10.5 % (0-10); NRBC Flagged by Analyzer 0 % (0-5); Neutrophil # 4.19 X10^3/uL (2.7-7.7); Neutrophil % 70.1 % (47-70); Platelet Count 247 K/mm3 (150-450); RBC Distribution Width CV 18.3 % (11.6-14.6); RBC Distribution Width SD 57.9 fl (35.1-43.9); Red Blood Count 3.64 M/mm3 (4.6-6.2)
[2024-02-22 07:04] LABS: Partial Thromboplast Time 44.8 Seconds (24.1-36.2)
[2024-02-22 07:08] LABS: Bedside Glucose 68 mg/dL (74-106)
[2024-02-22 07:30] LABS: Anion Gap 12 (5-15); BUN 57 mg/dL (7-18); BUN/Creat Ratio 6.7 RATIO (10-20); Calcium,Total 8.4 mg/dL (8.5-10.1); Chloride 93 mmol/L (98-107); EST Glomerular Filtration Rate 7 mL/min (>60); Est Glom Filt Rate - Afr Amer 9 mL/min (>60); Estimated Creatinine Clearance 13.43 ml/min; Glucose 65 mg/dL (74-106); Sodium Level 133 mmol/L (136-145)
[2024-02-22 07:33] LABS: Bedside Glucose 97 mg/dL (74-106)
--- NOTE | 2024-02-22 07:56 | PCM.CONS.C ---
Assessment & Plan Assessment/Plan (1) NSTEMI, initial episode of care: PLAN: He does present with atypical chest discomfort is noted to have a non-ST elevation myocardial infarction. With his recent angioplasty and stenting my recommendation will be to perform a limited cardiac catheterization and depending on the findings further recommendations will be made. He will be required to have dialysis after this. (2) Hypertension: PLAN: His blood pressure appears to be under decent control. Will continue his current aggressive therapy. (3) Coronary artery disease: PLAN: He does have known coronary artery disease with a nondominant right coronary artery, left circumflex artery which was stented in the fall 2022 and a more recent stent procedure performed at [place] the details of which are not clear at this particular time. This will be reevaluated with his cardiac catheterization (4) Cardiomyopathy: QUALIFIERS: Cardiomyopathy type: unspecified Qualified Code(s): I42.9 - Cardiomyopathy, unspecified PLAN: He does have a cardiomyopathy which is likely multifactorial. This will be reevaluated with a limited echocardiogram. HPI Consult Data Date of Consult: 02/22/24 HPI Narrative HPI Narrative: LISA MASTERSON, is a 53 M who presents with atypical chest discomfort and abnormal cardiac enzymes. He does have a history of known coronary artery disease with hypertension end-stage renal disease on dialysis, cardiomyopathy presumably secondary to hypertensive as well as coronary artery disease. He was last seen here in September of this year and was medically managed. He presented to this time because he had been having some discomfort over the last 3 weeks or so which he attributed to gastroesophageal reflux disease. He did go to his primary care physician's office was noted to have mild EKG changes noted in lead III and aVF and was sent to the emergency room where his troponin was noted to be elevated and flat around 7000. He presented to the emergency room on 01/22/2023 with complaints of a racing heartbeat and chest discomfort radiating down his left upper extremity. His troponins came back elevated, and he was admitted to the hospital for further evaluation. He underwent a cardiac catheterization on 01/23/2023, which demonstrated 80% stenosis Prox OM2; 70% stenosis in the Mid LCX, 60% stenosis in his Prox LAD, 50% stenosis in the Prox RCA (non-dominant), and 100% stenosis in his Prox OM1 (small 2 mm vessel). He did undergo lithotripsy and ALISON to the mid LCX in the the OM2. After his last office visit to the heart group offices he said that he was switching to [facility] cardiology service and has done that. It appears that he underwent further PCI in the [place] system and we do not have access to that. He is still on dialysis 3 times a week. His last echocardiogram performed here in September demonstrated an ejection fraction of 45%. It does appear that he underwent further PCI last month in the [facility] system. [facility] Medical History Kidney disease Congestive heart failure (CHF) Anxiety Atrial fibrillation Chest pain Non-ST elevation IN (NSTEMI) Atrial flutter Dialysis patient CPAP (continuous positive airway pressure) dependence Pneumonia due to COVID-19 virus Myocardial infarct VERÓNICA (obstructive sleep apnea) Arteriosclerotic cardiovascular disease Dyslipidemia Elevated troponin ESRD on dialysis Wears glasses Wears partial dentures Insulin dependent diabetes mellitus Diabetes High cholesterol Non-smoker COPD (chronic obstructive pulmonary disease) Sleep apnea History of stress test History of echocardiogram Leg cramps Hypertension Cardiology follow-up encounter History of CHF (congestive heart failure) Fistula Hypotension Degenerative disc disease, cervical Diabetes mellitus, type II, insulin dependent Diabetic polyneuropathy (04/2017) GERD (gastroesophageal reflux disease) Chronic kidney disease with end stage renal failure on dialysis Non-ischemic cardiomyopathy Essential (primary) hypertension Syncope (07/2018) Problem with dialysis access Anemia of chronic renal failure, stage 4 (severe) Demand ischemia Morbid obesity Systolic and diastolic CHF, acute Elevated troponin Home Medications ?Medication ?Instructions ?Recorded ?Last Taken ?Type blood-glucose meter (FreeStyle #1 ea 12/22/19 Unknown Rx [place] Lite kit) lancets 28 gauge (FreeStyle #100 ea 12/22/19 Unknown Rx Lancets) pen needle, diabetic 32 gauge x #400 ea 12/22/19 Unknown Rx (BD Ultra-Fine [place] Pen Needle) albuterol sulfate 90 mcg/actuation 2 puff inhalation Q6H PRN 07/26/21 01/21/23 History aerosol inhaler Shortness Of Breath Or Wheezing atorvastatin 80 mg tablet 80 mg PO QHS CHOLESTEROL 07/26/21 02/21/24 History ezetimibe 10 mg tablet 10 mg PO DAILY HIGH CHOLESTEROL 07/26/21 02/21/24 History losartan 50 mg tablet 50 mg PO DAILY BLOOD PRESSURE 07/26/21 10/08/23 History sucroferric oxyhydroxide 500 mg 1,500 mg PO TID KIDNEY HEALTH 02/20/22 02/21/24 History chewable tablet (Velphoro) insulin aspart U-100 100 unit/mL 15 unit subcut .COMPLEX BLOOD SUGAR 01/22/23 02/21/24 History (3 mL) subcutaneous pen (Novolog FlexPen U-100 Insulin aspart) lanthanum 1,000 mg chewable tablet 3,000 mg PO TIDCM for kidneys 01/22/23 02/21/24 History sertraline 50 mg tablet 50 mg PO DAILY ANTI DEPRESSANT 01/22/23 02/21/24 History trazodone 50 mg tablet 50 mg PO QHS SLEEP 01/22/23 02/20/24 History vitamin B complex-vitamin C-folic 1 tab PO DAILY VITAMIN 01/22/23 02/21/24 History acid 0.8 mg tablet (Leonela-Herbie) clopidogrel 75 mg tablet 75 mg PO DAILY HEART #90 tabs 02/13/23 02/21/24 Rx dulaglutide 0.75 mg/0.5 mL 0.75 mg subcut QWEEK diabetes 04/10/23 02/16/24 History subcutaneous pen injector (Trulicity) amlodipine 10 mg tablet 10 mg PO DAILY . #30 tabs 04/11/23 02/21/24 Rx cinacalcet 60 mg tablet 120 mg PO DAILY . 05/04/23 02/21/24 History gabapentin 300 mg capsule 300 mg PO QHS PAIN 05/04/23 02/20/24 History nitroglycerin 0.4 mg sublingual 0.4 mg buccal Q5M PRN chest pain 05/04/23 Unknown History tablet cholecalciferol (vitamin D3) 1,250 50,000 unit PO QWEEK SUPPLEMENT 06/07/23 02/21/24 History mcg (50,000 unit) capsule fluticasone propionate 50 2 spray intranasal DAILY . #18.2 mL 06/07/23 Unknown Rx mcg/actuation nasal spray,suspension nifedipine 60 mg tablet,extended 60 mg PO DAILY . 06/07/23 10/08/23 History release ondansetron 4 mg disintegrating 4 mg PO Q8H PRN PRN Nausea #10 tabs 10/17/23 Unknown Rx tablet aspirin 81 mg tablet,delayed 81 mg PO DAILY HEART 02/21/24 02/21/24 History release buspirone 15 mg tablet 15 mg PO BID . 02/21/24 02/21/24 History furosemide 80 mg tablet 80 mg PO DAILY . 02/21/24 Unknown History glimepiride 4 mg tablet 4 mg PO BID DM 02/21/24 02/21/24 History insulin degludec 100 unit/mL (3 40 unit subcut Q24H DM 02/21/24 02/21/24 History mL) subcutaneous pen (Tresiba FlexTouch U-100 insulin) lansoprazole 30 mg capsule,delayed 30 mg PO BID GERD 02/21/24 02/21/24 History release metoprolol succinate 100 mg 100 mg PO BID HTN 02/21/24 02/21/24 History tablet,extended release 24 hr Allergy/AdvReac Type Severity Reaction Status Date / Time liraglutide (From Victoza) Allergy Unknown unknown Verified 02/21/24 09:24 NSAIDS (Non-Steroidal AdvReac Severe Renal Verified 02/21/24 09:24 Anti-Inflamma failure BLANCA Inhibitors AdvReac Intermediate cough Verified 02/21/24 09:24 Family History Mother Hypertension Grandmother Aneurysm Other NSTEMI, initial episode of care Stented coronary artery Surgical History History of coronary artery stent placement Stented coronary artery (01/23/23) Hx of cardiac catheterization (~01/23/23) History of angioplasty of peripheral vessel (07/2021) Presence of surgically created arteriovenous shunt for hemodialysis (07/2017) Social History household members: spouse housing: house Smoking Status: Never smoker alcohol intake: never substance use type: does not use ROS Constitutional Constitutional: Denies fever(s) or weight loss Eyes Eyes: Reports systems reviewed and no addt'l complaints, except as documented ENT HEENT: Reports systems reviewed and no addt'l complaints, except as documented Cardiovascular Cardiovascular: Denies chest pain at rest, chest pain with activity, dyspnea at rest, dyspnea on exertion, edema, palpitations or paroxysmal nocturnal dyspnea Respiratory/Chest Respiratory/Chest: Denies dyspnea on exertion, productive cough, shortness of breath at rest or shortness of breath with exertion Gastrointestinal Gastrointestinal: Denies change in bowel habits, nausea, vomiting or weight changes Genitourinary Genitourinary: Denies difficulty urinating Musculoskeletal Musculoskeletal: Denies joint stiffness or muscle weakness Integumentary Integumentary: Denies lesions Neurologic Neurologic: Denies dizziness or syncope Psychiatric Psychiatric: Denies anxiety Endocrine Endocrinology: Denies excessive sweating or fatigue Hematologic/Lymphatic Hematologic/Lymphatic: Denies anemia Allergic/Immunologic Allergic/Immunologic: Denies seasonal rhinorrhea Physical Exam Const alert, oriented x3 and no apparent distress General Appearance: cooperative HEENT hearing grossly normal bilaterally Head and Scalp: atraumatic Eyes EOMs intact bilaterally Neck General: normal visual inspection Chest inspection of chest normal and palpation of chest normal Resp normal respiratory effort Auscultation: clear to auscultation bilaterally Cardio regular rate, regular rhythm, S1 normal heart sound and S2 normal heart sound Jugular Venous Distention: JVD GI normal to inspection, nondistended, normoactive bowel sounds Extremity normal capillary refill and no pedal edema Extremity Narrative: Left upper arm fistula for dialysis Peripheral Pulses: Yes pulses 2+ throughout and femoral pulses present Skin no rashes or lesions noted Neuro oriented x3 and CN's II-XII intact bilaterally Psych Appearance: grossly normal and appropriate Risk Stratification Risk Stratification Applicable: Yes Age >/= 65: No >/= 3 CAD Risk Factors (HTN, HLD, DM, family hx of CAD, or current smoker): Yes Aspirin Use in the Past 7 Days: Yes Severe Angina (>/= episodes in 24 hours): No EKG ST Changes >/= 0.5mm: No Positive Cardiac Marker: Yes ALONDRA Risk Stratification Score: 3 ALONDRA % Risk: 13% Risk Objective Data Vital Signs: Vital Signs Temp Pulse Resp BP Pulse Ox O2 Del Method 98.0 F 75 16 130/94 H 100 Room Air 02/22/24 03:35 02/22/24 03:35 02/22/24 03:35 02/22/24 03:35 02/22/24 03:35 02/22/24 03:35 Oxygen Delivery Method Room Air Weight: 287 lb Body Mass Index (BMI) 42.5 Intake & Output: Intake and Output for Last 24 Hours 02/20/24 02/21/24 02/22/24 23:59 23:59 23:59 Intake Total 115.6 / 115.6 538.8 / 538.8 Balance 115.6 / 115.6 538.8 / 538.8 Lab / Micro Data 02/22/24 06:35 02/22/24 06:35 Labs: Laboratory Results - last 24 hr 02/21/24 09:30: WBC 6.1, RBC 3.88 L, Hgb 11.1 L, Hct 34.0 L, MCV 87.6, MCH 28.6, MCHC 32.6, RDW Std Deviation 59.7 H, RDW Coeff of Kyle 18.8 H, Plt Count 254, MPV 8.7, Immature Gran % (Auto) 0.200, Neut % (Auto) 74.9 H, Lymph % (Auto) 12.1 L, [place] % (Auto) 10.0, Eos % (Auto) 2.1, Baso % (Auto) 0.7, Absolute Neuts (auto) 4.6, Absolute Lymphs (auto) 0.74 L, Nucleated RBC % 0, PT 14.9, INR 1.2, APTT 29.9, Sodium 135 L, Potassium 4.7, Chloride 96 L, Carbon Dioxide 32.0, Anion Gap 7, BUN 40 H, Creatinine 7.23 H, Estim Creat Clear Calc 15.89, Est GFR (MDRD) Af Amer 10 L, Est GFR (MDRD) Non-Af 9 L, BUN/Creatinine Ratio 5.5 L, Glucose 68 L, Calcium 9.1, Troponin I High Sens 7302 H* 02/21/24 11:48: Troponin I High Sens 7030 H* 02/21/24 16:20: Troponin I High Sens 5600 H* 02/21/24 17:03: APTT > 200.0 H* 02/21/24 18:27: POC Glucose 50 L 02/21/24 18:48: POC Glucose 94 02/21/24 21:16: POC Glucose 58 L 02/21/24 22:08: POC Glucose 90 02/22/24 01:50: APTT 57.2 H 02/22/24 03:41: POC Glucose 42 L* 02/22/24 04:13: POC Glucose 158 H 02/22/24 06:35: WBC 6.0, RBC 3.64 L, Hgb 10.3 L, Hct 31.7 L, MCV 87.1, MCH 28.3, MCHC 32.5, RDW Std Deviation 57.9 H, RDW Coeff of Kyle 18.3 H, Plt Count 247, MPV 9.3, Immature Gran % (Auto) 0.500, Neut % (Auto) 70.1 H, Lymph % (Auto) 14.9 L, [place] % (Auto) 10.5 H, Eos % (Auto) 3.5, Baso % (Auto) 0.5, Absolute Neuts (auto) 4.2, Absolute Lymphs (auto) 0.89, Nucleated RBC % 0, APTT 44.8 H, Sodium 133 L, Potassium 5.0, Chloride 93 L, Carbon Dioxide 28.0, Anion Gap 12, BUN 57 H, Creatinine 8.50 H*, Estim Creat Clear Calc 13.43, Est GFR (MDRD) Af Amer 9 L, Est GFR (MDRD) Non-Af 7 L, BUN/Creatinine Ratio 6.7 L, Glucose 65 L, Calcium 8.4 L 02/22/24 06:51: POC Glucose 68 L 02/22/24 07:14: POC Glucose 97 Cardiology Labs/Tests 02/21/24 09:30: WBC 6.1, RBC 3.88 L, Hgb 11.1 L, Hct 34.0 L, MCV 87.6, MCH 28.6, MCHC 32.6, Plt Count 254, MPV 8.7, Immature Gran % (Auto) 0.200, Neut % (Auto) 74.9 H, Lymph % (Auto) 12.1 L, [place] % (Auto) 10.0, Eos % (Auto) 2.1, Baso % (Auto) 0.7, Absolute Neuts (auto) 4.6, Nucleated RBC % 0, PT 14.9, INR 1.2, APTT 29.9, Sodium 135 L, Potassium 4.7, Chloride 96 L, Carbon Dioxide 32.0, Anion Gap 7, BUN 40 H, Creatinine 7.23 H, Est GFR (MDRD) Af Amer 10 L, Est GFR (MDRD) Non-Af 9 L, BUN/Creatinine Ratio 5.5 L, Glucose 68 L, Calcium 9.1 02/21/24 17:03: APTT > 200.0 H* 02/22/24 01:50: APTT 57.2 H 02/22/24 06:35: WBC 6.0, RBC 3.64 L, Hgb 10.3 L, Hct 31.7 L, MCV 87.1, MCH 28.3, MCHC 32.5, Plt Count 247, MPV 9.3, Immature Gran % (Auto) 0.500, Neut % (Auto) 70.1 H, Lymph % (Auto) 14.9 L, [place] % (Auto) 10.5 H, Eos % (Auto) 3.5, Baso % (Auto) 0.5, Absolute Neuts (auto) 4.2, Nucleated RBC % 0, APTT 44.8 H, Sodium 133 L, Potassium 5.0, Chloride 93 L, Carbon Dioxide 28.0, Anion Gap 12, BUN 57 H, Creatinine 8.50 H*, Est GFR (MDRD) Af Amer 9 L, Est GFR (MDRD) Non-Af 7 L, BUN/Creatinine Ratio 6.7 L, Glucose 65 L, Calcium 8.4 L Rhythm: EKG: ECHO: Stress Test: Cardiac Cath: PCI: CT Surgery: Holter monitor: EPS: PPM: CXR: Chest CT Scan: Radiography Diagnostic Testing: Radiology Impression Chest X-Ray 02/21/24 09:30 IMPRESSION: Stable mild linear markings in the left midlung suggestive of linear scarring. Electronically Signed: Kevin Bustos MD at 10:13 EDT ,
[2024-02-22] MEDS: amLODIPine 10 MG Tablet PO (08:03)
[2024-02-22] MEDS: Metoprolol(XL)Succ 100 MG Tablet PO ×2 (08:03→23:35)
[2024-02-22] MEDS: Clopidogrel Bisulfate 75 MG Tablet PO (08:03)
[2024-02-22] MEDS: Aspirin E.C. 81 MG Tablet PO (08:03)
--- NOTE | 2024-02-22 08:19 | NURSING ---
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
--- NOTE | 2024-02-22 08:26 | PN.HOSP_ITS ---
Reason for Visit Reason for Visit: Diagnoses Essential (primary) hypertension (02/21/24) Non-ST elevation (NSTEMI) myocardial infarction (02/21/24) Atherosclerotic heart disease of [place] coronary artery without angina pectoris (02/21/24) Cardiomyopathy, unspecified (02/21/24) Subjective Subjective Feeling well post catheterization. Objective Data Objective Data Vital Signs: Vital Signs Temp Pulse Resp BP Pulse Ox O2 Del Method O2 Flow Rate 36.5 C L 69 18 125/89 H 100 Nasal Cannula 2 02/22/24 07:58 02/22/24 08:03 02/22/24 07:58 02/22/24 07:58 02/22/24 07:58 02/22/24 07:58 02/22/24 07:58 Oxygen Flow Rate (L/min) 2 Oxygen Delivery Method Nasal Cannula Weight: 130.181 kg Body Mass Index (BMI) 42.5 Intake & Output: Intake and Output for Last 24 Hours 02/20/24 02/21/24 02/22/24 23:59 23:59 23:59 Intake Total 115.6 / 115.6 538.8 / 538.8 Balance 115.6 / 115.6 538.8 / 538.8 Lab / Micro Data 02/22/24 06:35 02/22/24 06:35 Labs: Laboratory Results - last 24 hr 02/21/24 09:30: WBC 6.1, RBC 3.88 L, Hgb 11.1 L, Hct 34.0 L, MCV 87.6, MCH 28.6, MCHC 32.6, RDW Std Deviation 59.7 H, RDW Coeff of Kyle 18.8 H, Plt Count 254, MPV 8.7, Immature Gran % (Auto) 0.200, Neut % (Auto) 74.9 H, Lymph % (Auto) 12.1 L, [place] % (Auto) 10.0, Eos % (Auto) 2.1, Baso % (Auto) 0.7, Absolute Neuts (auto) 4.6, Absolute Lymphs (auto) 0.74 L, Nucleated RBC % 0, PT 14.9, INR 1.2, APTT 29.9, Sodium 135 L, Potassium 4.7, Chloride 96 L, Carbon Dioxide 32.0, Anion Gap 7, BUN 40 H, Creatinine 7.23 H, Estim Creat Clear Calc 15.89, Est GFR (MDRD) Af Amer 10 L, Est GFR (MDRD) Non-Af 9 L, BUN/Creatinine Ratio 5.5 L, Glucose 68 L, Calcium 9.1, Troponin I High Sens 7302 H* 02/21/24 11:48: Troponin I High Sens 7030 H* 02/21/24 16:20: Troponin I High Sens 5600 H* 02/21/24 17:03: APTT > 200.0 H* 02/21/24 18:27: POC Glucose 50 L 02/21/24 18:48: POC Glucose 94 02/21/24 21:16: POC Glucose 58 L 02/21/24 22:08: POC Glucose 90 02/22/24 01:50: APTT 57.2 H 02/22/24 03:41: POC Glucose 42 L* 02/22/24 04:13: POC Glucose 158 H 02/22/24 06:35: WBC 6.0, RBC 3.64 L, Hgb 10.3 L, Hct 31.7 L, MCV 87.1, MCH 28.3, MCHC 32.5, RDW Std Deviation 57.9 H, RDW Coeff of Kyle 18.3 H, Plt Count 247, MPV 9.3, Immature Gran % (Auto) 0.500, Neut % (Auto) 70.1 H, Lymph % (Auto) 14.9 L, [place] % (Auto) 10.5 H, Eos % (Auto) 3.5, Baso % (Auto) 0.5, Absolute Neuts (auto) 4.2, Absolute Lymphs (auto) 0.89, Nucleated RBC % 0, APTT 44.8 H, Sodium 133 L, Potassium 5.0, Chloride 93 L, Carbon Dioxide 28.0, Anion Gap 12, BUN 57 H, C reatinine 8.50 H*, Estim Creat Clear Calc 13.43, Est GFR (MDRD) Af Amer 9 L, Est GFR (MDRD) Non-Af 7 L, BUN/Creatinine Ratio 6.7 L, Glucose 65 L, Calcium 8.4 L 02/22/24 06:51: POC Glucose 68 L 02/22/24 07:14: POC Glucose 97 Radiography Diagnostic Testing: Radiology Impression Chest X-Ray 02/21/24 09:30 IMPRESSION: Stable mild linear markings in the left midlung suggestive of linear scarring. Electronically Signed: Kevin Bustos MD at 10:13 EDT , Physical Exam Const alert and no apparent distress Constitutional Narrative: Up in chair. Nontoxic. HEENT head/scalp atraumatic and moist oral mucous membranes Resp normal respiratory effort, no retractions, no use of accessory muscles and clear to auscultation bilaterally Cardio regular rate, regular rhythm, S1 normal heart sound and S2 normal heart sound GI normal to inspection, nondistended, normoactive bowel sounds, soft to palpation, non-tender and non-distended Extremity Extremity Narrative: Palpable thrill in left upper extremity fistula Neuro Sensorium / Orientation: awake Assessment & Plan Assessment/Plan (1) NSTEMI, initial episode of care: PLAN: Plan NSTEMI * troponins peaked at 7302, since trending downwards. * cardiology on consult. Patient had a left heart cath that showed in-stent stenosis of the left circumflex lesion. Discussed with Dr. Nevarez, who recommended transfer back to [place]. I reached out to the [facility] about providing information. Provided my information, including my phone number. Still waiting to hear back. * heparin gtt. continue ASA, statin and clopidogrel. * pt had recent PCI in [facility]. Through [facility]: PCI to LCx ESRD * on HD MWF * nephrology on consult * Patient had hemodialysis on 02/21 Chronic conditions: * Type 2 diabetes mellitus: -Glucose checks and sliding scale insulin- continue long-acting insulin slightly lower dose than home dose and uptitrate if no hypoglycemia given glucose in ED is 68 * paroxysmal atrial fibrillation-Per available history-Pt in NSR-On aspirin and plavix, not currently on eliquis-Continue metoprolol * VERÓNICA-Continue home NIPPV if applicable * GERD-Continue PPI * Obesity class III: complicates care and recovery * History of hypertension-Continue metoprolol and amlodipine-Patient unsure if he is still taking losartan nifedipine but these do not appear to open recently filled so we will hold off on beginning these VTE prophylaxis: not indicated as already anticoagulated. Charges/Coding Visit Charges Inpatient E&M: 59269 Subs Hosp L2
--- NOTE | 2024-02-22 08:56 | CASEMGMT ---
Insurance review for hospitals In-network with?[facility] [employer] insurance if transfer is recommended is as follows: [facility], [facility], [place], [facility], [facility], and [facility]. Fabiola Acharya, Discharge Planning Asst.
--- NOTE | 2024-02-22 09:25 | PN.CARD_ITS ---
Subjective Subjective Patient underwent cardiac catheterization this morning Objective Data Vital Signs: Vital Signs Temp Pulse Resp BP Pulse Ox O2 Del Method O2 Flow Rate 97.7 F L 69 18 125/89 H 94 Room Air 2 02/22/24 07:58 02/22/24 08:03 02/22/24 07:58 02/22/24 07:58 02/22/24 08:45 02/22/24 08:45 02/22/24 08:00 Oxygen Flow Rate (L/min) 2 Oxygen Delivery Method Room Air Weight: 287 lb Body Mass Index (BMI) 42.5 Intake & Output: Intake and Output for Last 24 Hours 02/20/24 02/21/24 02/22/24 23:59 23:59 23:59 Intake Total 115.6 / 115.6 538.8 / 538.8 Balance 115.6 / 115.6 538.8 / 538.8 Lab / Micro Data 02/22/24 06:35 02/22/24 06:35 Labs: Laboratory Results - last 24 hr 02/21/24 09:30: WBC 6.1, RBC 3.88 L, Hgb 11.1 L, Hct 34.0 L, MCV 87.6, MCH 28.6, MCHC 32.6, RDW Std Deviation 59.7 H, RDW Coeff of Kyle 18.8 H, Plt Count 254, MPV 8.7, Immature Gran % (Auto) 0.200, Neut % (Auto) 74.9 H, Lymph % (Auto) 12.1 L, [place] % (Auto) 10.0, Eos % (Auto) 2.1, Baso % (Auto) 0.7, Absolute Neuts (auto) 4.6, Absolute Lymphs (auto) 0.74 L, Nucleated RBC % 0, PT 14.9, INR 1.2, APTT 29.9, Sodium 135 L, Potassium 4.7, Chloride 96 L, Carbon Dioxide 32.0, Anion Gap 7, BUN 40 H, Creatinine 7.23 H, Estim Creat Clear Calc 15.89, Est GFR (MDRD) Af Amer 10 L, Est GFR (MDRD) Non-Af 9 L, BUN/Creatinine Ratio 5.5 L, Glucose 68 L, Calcium 9.1, Troponin I High Sens 7302 H* 02/21/24 11:48: Troponin I High Sens 7030 H* 02/21/24 16:20: Troponin I High Sens 5600 H* 02/21/24 17:03: APTT > 200.0 H* 02/21/24 18:27: POC Glucose 50 L 02/21/24 18:48: POC Glucose 94 02/21/24 21:16: POC Glucose 58 L 02/21/24 22:08: POC Glucose 90 02/22/24 01:50: APTT 57.2 H 02/22/24 03:41: POC Glucose 42 L* 02/22/24 04:13: POC Glucose 158 H 02/22/24 06:35: WBC 6.0, RBC 3.64 L, Hgb 10.3 L, Hct 31.7 L, MCV 87.1, MCH 28.3, MCHC 32.5, RDW Std Deviation 57.9 H, RDW Coeff of Kyle 18.3 H, Plt Count 247, MPV 9.3, Immature Gran % (Auto) 0.500, Neut % (Auto) 70.1 H, Lymph % (Auto) 14.9 L, [place] % (Auto) 10.5 H, Eos % (Auto) 3.5, Baso % (Auto) 0.5, Absolute Neuts (auto) 4.2, Absolute Lymphs (auto) 0.89, Nucleated RBC % 0, APTT 44.8 H, Sodium 133 L, Potassium 5.0, Chloride 93 L, Carbon Dioxide 28.0, Anion Gap 12, BUN 57 H, C reatinine 8.50 H*, Estim Creat Clear Calc 13.43, Est GFR (MDRD) Af Amer 9 L, Est GFR (MDRD) Non-Af 7 L, BUN/Creatinine Ratio 6.7 L, Glucose 65 L, Calcium 8.4 L 02/22/24 06:51: POC Glucose 68 L 02/22/24 07:14: POC Glucose 97 Cardiology Labs/Tests 02/21/24 09:30: WBC 6.1, RBC 3.88 L, Hgb 11.1 L, Hct 34.0 L, MCV 87.6, MCH 28.6, MCHC 32.6, Plt Count 254, MPV 8.7, Immature Gran % (Auto) 0.200, Neut % (Auto) 74.9 H, Lymph % (Auto) 12.1 L, [place] % (Auto) 10.0, Eos % (Auto) 2.1, Baso % (Auto) 0.7, Absolute Neuts (auto) 4.6, Nucleated RBC % 0, PT 14.9, INR 1.2, APTT 29.9, Sodium 135 L, Potassium 4.7, Chloride 96 L, Carbon Dioxide 32.0, Anion Gap 7, BUN 40 H, Creatinine 7.23 H, Est GFR (MDRD) Af Amer 10 L, Est GFR (MDRD) Non- Af 9 L, BUN/Creatinine Ratio 5.5 L, Glucose 68 L, Calcium 9.1 02/21/24 17:03: APTT > 200.0 H* 02/22/24 01:50: APTT 57.2 H 02/22/24 06:35: WBC 6.0, RBC 3.64 L, Hgb 10.3 L, Hct 31.7 L, MCV 87.1, MCH 28.3, MCHC 32.5, Plt Count 247, MPV 9.3, Immature Gran % (Auto) 0.500, Neut % (Auto) 70.1 H, Lymph % (Auto) 14.9 L, [place] % (Auto) 10.5 H, Eos % (Auto) 3.5, Baso % (Auto) 0.5, Absolute Neuts (auto) 4.2, Nucleated RBC % 0, APTT 44.8 H, Sodium 133 L, Potassium 5.0, Chloride 93 L, Carbon Dioxide 28.0, Anion Gap 12, BUN 57 H , Creatinine 8.50 H*, Est GFR (MDRD) Af Amer 9 L, Est GFR (MDRD) Non-Af 7 L, B UN/Creatinine Ratio 6.7 L, Glucose 65 L, Calcium 8.4 L Rhythm: EKG: ECHO: Stress Test: Cardiac Cath: PCI: CT Surgery: Holter monitor: EPS: PPM: CXR: Chest CT Scan: Radiography Diagnostic Testing: Radiology Impression Chest X-Ray 02/21/24 09:30 IMPRESSION: Stable mild linear markings in the left midlung suggestive of linear scarring. Electronically Signed: Kevin Bustos MD at 10:13 EDT , Physical Exam Const alert, oriented x3 and no apparent distress General Appearance: cooperative HEENT hearing grossly normal bilaterally Head and Scalp: atraumatic Eyes EOMs intact bilaterally Neck General: normal visual inspection Chest inspection of chest normal and palpation of chest normal Resp normal respiratory effort Auscultation: clear to auscultation bilaterally Cardio regular rate, regular rhythm, S1 normal heart sound and S2 normal heart sound Jugular Venous Distention: JVD GI normal to inspection, nondistended, normoactive bowel sounds Extremity normal capillary refill and no pedal edema Extremity Narrative: Left upper arm fistula for dialysis Peripheral Pulses: Yes pulses 2+ throughout and femoral pulses present Skin no rashes or lesions noted Neuro oriented x3 and CN's II-XII intact bilaterally Psych Appearance: grossly normal and appropriate Assessment & Plan Assessment/Plan (1) NSTEMI, initial episode of care: PLAN: He does present with atypical chest discomfort is noted to have a non-ST elevation myocardial infarction. His cardiac catheterization this morning demonstrated restenosis of his recently placed stent in the proximal left circumflex artery. To the mid to distal stent appears to be patent the LAD has moderate disease in the right coronary artery is nondominant. This was discussed with interventional service here. They are uncomfortable proceeding with PCI and recommend that he be transferred back to [facility] where he had his coronary intervention. Would recommend dialysis this morning and then arrangements made for transfer. (2) Hypertension: PLAN: His blood pressure appears to be under decent control. Will continue his current aggressive therapy. (3) Coronary artery disease: PLAN: He does have known coronary artery disease with a nondominant right coronary artery, left circumflex artery which was stented in the fall 2022 and a more recent stent procedure performed at [facility] the details of which are not clear at this particular time. As noted above. (4) Cardiomyopathy: QUALIFIERS: Cardiomyopathy type: unspecified Qualified Code(s): I 42.9 - Cardiomyopathy, unspecified PLAN: He does have a cardiomyopathy which is likely multifactorial. This will be reevaluated with a limited echocardiogram.
--- NOTE | 2024-02-22 09:42 | CL.D_ITS ---
Patient Name: LISA MASTERSON Study Date: 02/22/2024 Performing: Александр Nevarez MD Ht: 69 inches 175.26 cm : 1970 Wt: 287 lbs 130.18 kg Age: 53 Gender: male BSA: 2.41 PROCEDURE(S) PERFORMED [id number])C/COR CLINICAL PROFILE AND INDICATIONS Indications: Suspected CAD Heart Failure: None Stress/Imaging Stress/Image Study Performed: No CAD Presentations: Non-STEMI. Symptom onset Date/Time: 02/21/24 Time Not Available CONCLUSIONS Severe single-vessel coronary disease involving restenosis of the proximal circumflex artery in the mid to distal stent being patent. Left anterior descending artery has moderate disease. RECOMMENDATIONS Will recommend PCI to the proximal left circumflex artery. Interventional recommendation is to transfer to a tertiary care facility. DESCRIPTION OF PROCEDURE The patient arrived to the procedure lab. The risks and benefits of the procedure as well as a full description of our services here and current unavailability of surgical backup were fully explained to the patient and/or their significant other prior to the catheterization. The Timeout was completed, verifying the correct patient and procedure. The patient's procedural site was prepped and draped in the usual fashion. Local anesthetic was given subcutaneously to right radial region with Lidocaine 2%. Using a modified Seldinger technique, arterial access was obtained via the right radial artery, a 6Fr sheath was inserted. Left Coronary Artery selective angiography was performed in multiple views using a 5 Fr. 4.0 [place] catheter. Right Coronary Artery selective angiography was then performed in multiple views using a 5 Fr. 4.0 [place] catheter.The arterial sheath was pulled and a TR Band was applied for hemostasis, 13cc of air CORONARY ANGIOGRAPHY DOMINANCE: Left Dominant LEFT HEART ASSESSMENT Left Ventricular Ejection Fraction: by Echo 45 % Global Hypokinesis - Mild Depressed Left Ventricular systolic function LEFT MAIN: Mild calcification, No significant disease noted LEFT ANTERIOR DESCENDING ARTERY: Mild calcification with moderate disease noted in the midsegment. Mild diffuse distal disease. CIRCUMFLEX ARTERY: This vessel has been stented twice. The proximal area with a recent stent has a 95% in-stent stenosis, there is a first tiny obtuse marginal branch. The vessel then continues and has a long stent placed incorporating the second obtuse marginal vessel which appears to be patent with mild in-stent stenosis. RIGHT CORONARY ARTERY: Mild luminal irregularities less than 30% COMPLICATIONS No Complications PROCEDURE MEDICATIONS Versed 1 mg IV Fentanyl 25 mcg IV Oxygen: 2 L/min via nasal cannula Heparin given IA 02/22/2024 09:10:57 Verapamil 2.5mg, Ntg 100mcgs, 3000 units of Heparin given IA 02/22/2024 09:10:57 SUMMARY OF HEMODYNAMIC DATA Time AIR REST ECG 08:46:19 AO 130/81 (100) SA 09:16:26 Signed By Александр Nevarez MD On 02/22/2024 09:46:34 Signed By Александр Nevarez MD On 02/22/2024 09:41:07 Александр Nevarez MD
--- NOTE | 2024-02-22 10:13 | PCM.CONS.R ---
Documented by User: MARSHA Melendez 02/22/24 10:37 Assessment & Plan Assessment/Plan (1) ESRD on dialysis: (2) NSTEMI, initial episode of care: (3) Hypertension: PLAN: Plan This is a pleasant 53-year-old male with past medical history significant for ESRD currently dialyzing Sunday at [facility] followed by Dr. Lamar who presented emergency room with complaints of midsternal chest pain. Found to have detectable troponin, admitted for non-STEMI, started on heparin drip. Cardiology consulted and patient underwent heart cath this morning. Nephrology consulted in view of history of ESRD, for dialysis management. Patient last dialyzed February 19. We will plan dialysis today post heart cath over 4 hours and attempt fluid removal as patient/blood pressure tolerates. Patient's current EDW 124.9 kg. His weight postdialysis 02/19 129.3 kg. Patient tends to have large fluid gains and because of this he has been doing extra ultrafiltration/fluid removal on Saturdays at the [facility] as needed. We will attempt to remove fluid today with dialysis aiming towards EDW. Patient recently was admitted to [facility] underwent heart cath with stent there and had been wearing LifeVest per their instructions. [facility] contacted and patient is pending transfer to their facility. Patient has a history of anemia of chronic disease, hemoglobin is 10.3. He does not need FARRAH with dialysis today; he received Mircera 01/30/2024 225mcg at [facility]. Patient does receive Mircera at the [facility]. Blood pressures acceptable. Further orders forthcoming as hospitalization evolves, thank you for allowing us to participate in the care of Mr. Yung. HPI Consult Data Date of Consult: 02/22/24 HPI Narrative HPI Narrative: LISA YUNG, is a 53 M with past medical history significant for ESRD on hemodialysis Sunday at [facility], last dialyzed Monday 02/19, history of DM type II, hypertension, coronary artery disease status post cardiac stents who presented to the emergency room yesterday with complaints of chest pain. Workup in the emergency room showed elevated troponin 7300. Patient was recently admitted to [facility] underwent heart cath with stenting, [facility] was contacted and accepted patient for transfer. Patient was started on heparin drip and admitted for further evaluation and treatment until bed available at [facility]. This morning patient underwent cardiac catheterization. Nephrology consulted in view of history of ESRD and for dialysis management. Patient just returned from having cardiac catheterization, he is drowsy but alert and oriented. Denies any current chest pain. No recent nausea or vomiting. [facility] Medical History Kidney disease Congestive heart failure (CHF) Anxiety Atrial fibrillation Chest pain Non-ST elevation NH (NSTEMI) Atrial flutter Dialysis patient CPAP (continuous positive airway pressure) dependence Pneumonia due to COVID-19 virus Myocardial infarct VERÓNICA (obstructive sleep apnea) Arteriosclerotic cardiovascular disease Dyslipidemia Elevated troponin ESRD on dialysis Wears glasses Wears partial dentures Insulin dependent diabetes mellitus Diabetes High cholesterol Non-smoker COPD (chronic obstructive pulmonary disease) Sleep apnea History of stress test History of echocardiogram Leg cramps Hypertension Cardiology follow-up encounter History of CHF (congestive heart failure) Fistula Hypotension Degenerative disc disease, cervical Diabetes mellitus, type II, insulin dependent Diabetic polyneuropathy (04/2017) GERD (gastroesophageal reflux disease) Chronic kidney disease with end stage renal failure on dialysis Non-ischemic cardiomyopathy Essential (primary) hypertension Syncope (07/2018) Problem with dialysis access Anemia of chronic renal failure, stage 4 (severe) Demand ischemia Morbid obesity Systolic and diastolic CHF, acute Elevated troponin Home Medications ?Medication ?Instructions ?Recorded ?Last Taken ?Type blood-glucose meter (FreeStyle #1 ea 12/22/19 Unknown Rx [place] Lite kit) lancets 28 gauge (FreeStyle #100 ea 12/22/19 Unknown Rx Lancets) pen needle, diabetic 32 gauge x #400 ea 12/22/19 Unknown Rx (BD Ultra-Fine [place] Pen Needle) albuterol sulfate 90 mcg/actuation 2 puff inhalation Q6H PRN 07/26/21 01/21/23 History aerosol inhaler Shortness Of Breath Or Wheezing atorvastatin 80 mg tablet 80 mg PO QHS CHOLESTEROL 07/26/21 02/21/24 History ezetimibe 10 mg tablet 10 mg PO DAILY HIGH CHOLESTEROL 07/26/21 02/21/24 History losartan 50 mg tablet 50 mg PO DAILY BLOOD PRESSURE 07/26/21 10/08/23 History sucroferric oxyhydroxide 500 mg 1,500 mg PO TID KIDNEY HEALTH 02/20/22 02/21/24 History chewable tablet (Velphoro) insulin aspart U-100 100 unit/mL 15 unit subcut .COMPLEX BLOOD SUGAR 01/22/23 02/21/24 History (3 mL) subcutaneous pen (Novolog FlexPen U-100 Insulin aspart) lanthanum 1,000 mg chewable tablet 3,000 mg PO TIDCM for kidneys 01/22/23 02/21/24 History sertraline 50 mg tablet 50 mg PO DAILY ANTI DEPRESSANT 01/22/23 02/21/24 History trazodone 50 mg tablet 50 mg PO QHS SLEEP 01/22/23 02/20/24 History vitamin B complex-vitamin C-folic 1 tab PO DAILY VITAMIN 01/22/23 02/21/24 History acid 0.8 mg tablet (Leonela-Herbie) clopidogrel 75 mg tablet 75 mg PO DAILY HEART #90 tabs 02/13/23 02/21/24 Rx dulaglutide 0.75 mg/0.5 mL 0.75 mg subcut QWEEK diabetes 04/10/23 02/16/24 History subcutaneous pen injector (Trulicity) amlodipine 10 mg tablet 10 mg PO DAILY . #30 tabs 04/11/23 02/21/24 Rx cinacalcet 60 mg tablet 120 mg PO DAILY . 05/04/23 02/21/24 History gabapentin 300 mg capsule 300 mg PO QHS PAIN 05/04/23 02/20/24 History nitroglycerin 0.4 mg sublingual 0.4 mg buccal Q5M PRN chest pain 05/04/23 Unknown History tablet cholecalciferol (vitamin D3) 1,250 50,000 unit PO QWEEK SUPPLEMENT 06/07/23 02/21/24 History mcg (50,000 unit) capsule fluticasone propionate 50 2 spray intranasal DAILY . #18.2 mL 06/07/23 Unknown Rx mcg/actuation nasal spray,suspension nifedipine 60 mg tablet,extended 60 mg PO DAILY . 06/07/23 10/08/23 History release ondansetron 4 mg disintegrating 4 mg PO Q8H PRN PRN Nausea #10 tabs 10/17/23 Unknown Rx tablet aspirin 81 mg tablet,delayed 81 mg PO DAILY HEART 02/21/24 02/21/24 History release buspirone 15 mg tablet 15 mg PO BID . 02/21/24 02/21/24 History furosemide 80 mg tablet 80 mg PO DAILY . 02/21/24 Unknown History glimepiride 4 mg tablet 4 mg PO BID DM 02/21/24 02/21/24 History insulin degludec 100 unit/mL (3 40 unit subcut Q24H DM 02/21/24 02/21/24 History mL) subcutaneous pen (Tresiba FlexTouch U-100 insulin) lansoprazole 30 mg capsule,delayed 30 mg PO BID GERD 02/21/24 02/21/24 History release metoprolol succinate 100 mg 100 mg PO BID HTN 02/21/24 02/21/24 History tablet,extended release 24 hr Allergy/AdvReac Type Severity Reaction Status Date / Time liraglutide (From Victoza) Allergy Unknown unknown Verified 02/21/24 09:24 NSAIDS (Non-Steroidal AdvReac Severe Renal Verified 02/21/24 09:24 Anti-Inflamma failure BLANCA Inhibitors AdvReac Intermediate cough Verified 02/21/24 09:24 Family History Mother Hypertension Grandmother Aneurysm Other NSTEMI, initial episode of care Stented coronary artery Surgical History (Updated 02/22/24 @ 13:40 by Angelo Padilla RN) Stented coronary artery Hx of cardiac catheterization (~01/23/23) History of angioplasty of peripheral vessel (07/2021) Presence of surgically created arteriovenous shunt for hemodialysis (07/2017) Social History household members: spouse housing: house Smoking Status: Never smoker alcohol intake: never substance use type: does not use ROS ROS Narrative As in HPI Physical Exam Narrative Alert and oriented x 3, no apparent distress. Drowsy post heart cath procedure S1, S2, RRR Lung sounds clear anteriorly and posteriorly. No wheezes, rhonchi or rales Abdomen soft, nontender, rounded No edema Left forearm AV fistula positive thrill and bruit Lab / Micro Data 02/22/24 06:35 02/22/24 06:35 Labs: Laboratory Results - last 24 hr 02/21/24 09:30: PT 14.9, INR 1.2, APTT 29.9, Sodium 135 L, Potassium 4.7, Chloride 96 L, Carbon Dioxide 32.0, Anion Gap 7, BUN 40 H, Creatinine 7.23 H, Estim Creat Clear Calc 15.89, Est GFR (MDRD) Af Amer 10 L, Est GFR (MDRD) Non-Af 9 L, BUN/Creatinine Ratio 5.5 L, Glucose 68 L, Calcium 9.1, Troponin I High Sens 7302 H* 02/21/24 11:48: Troponin I High Sens 7030 H* 02/21/24 16:20: Troponin I High Sens 5600 H* 02/21/24 17:03: APTT > 200.0 H* 02/21/24 18:27: POC Glucose 50 L 02/21/24 18:48: POC Glucose 94 02/21/24 21:16: POC Glucose 58 L 02/21/24 22:08: POC Glucose 90 02/22/24 01:50: APTT 57.2 H 02/22/24 03:41: POC Glucose 42 L* 02/22/24 04:13: POC Glucose 158 H 02/22/24 06:35: WBC 6.0, RBC 3.64 L, Hgb 10.3 L, Hct 31.7 L, MCV 87.1, MCH 28.3, MCHC 32.5, RDW Std Deviation 57.9 H, RDW Coeff of Kyle 18.3 H, Plt Count 247, MPV 9.3, Immature Gran % (Auto) 0.500, Neut % (Auto) 70.1 H, Lymph % (Auto) 14.9 L, [place] % (Auto) 10.5 H, Eos % (Auto) 3.5, Baso % (Auto) 0.5, Absolute Neuts (auto) 4.2, Absolute Lymphs (auto) 0.89, Nucleated RBC % 0, APTT 44.8 H, Sodium 133 L, Potassium 5.0, Chloride 93 L, Carbon Dioxide 28.0, Anion Gap 12, BUN 57 H, Creatinine 8.50 H*, Estim Creat Clear Calc 13.43, Est GFR (MDRD) Af Amer 9 L, Est GFR (MDRD) Non-Af 7 L, BUN/Creatinine Ratio 6.7 L, Glucose 65 L, Calcium 8.4 L 02/22/24 06:51: POC Glucose 68 L 02/22/24 07:14: POC Glucose 97 Imaging Radiology Impression Chest X-Ray 02/21/24 09:30 IMPRESSION: Stable mild linear markings in the left midlung suggestive of linear scarring. Electronically Signed: Kevin Bustos MD at 10:13 EDT , Documented by User: Dr. Jere Maxwell MD 02/22/24 17:45 Assessment & Plan Assessment/Plan (1) ESRD on dialysis: (2) NSTEMI, initial episode of care: (3) Hypertension: PLAN: Plan This is a pleasant 53-year-old male with past medical history significant for ESRD currently dialyzing Sunday at [facility] followed by Dr. Lamar who presented emergency room with complaints of midsternal chest pain. Found to have detectable troponin, admitted for non-STEMI, started on heparin drip. Cardiology consulted and patient underwent heart cath this morning. Nephrology consulted in view of history of ESRD, for dialysis management. Patient last dialyzed February 19. We will plan dialysis today post heart cath over 4 hours and attempt fluid removal as patient/blood pressure tolerates. Patient's current EDW 124.9 kg. His weight postdialysis 02/19 129.3 kg. Patient tends to have large fluid gains and because of this he has been doing extra ultrafiltration/fluid removal on Saturdays at the kidney center as needed. We will attempt to remove fluid today with dialysis aiming towards EDW. Patient recently was admitted to [facility] underwent heart cath with stent there and had been wearing LifeVest per their instructions. [facility] contacted and patient is pending transfer to their facility. Patient has a history of anemia of chronic disease, hemoglobin is 10.3. He does not need FARRAH with dialysis today; he received Mircera 01/30/2024 225mcg at kidney center. Patient does receive Mircera at the kidney center. Blood pressures acceptable. Further orders forthcoming as hospitalization evolves, thank you for allowing us to participate in the care of Mr. Yung. Nephrology attending addendum: I saw and examined the patient independently. I agree with SOURAV's assessment and plan as documented above. We supervised the dialysis treatment earlier today. He tolerated dialysis well. Patient is awaiting transfer to [facility] for further cardiac evaluation. If patient is not yet transferred on 02/17/2024, we will arrange for dialysis here at [facility]. Jerald Edmond MD HPI Consult Data Date of Consult: 02/22/24 [facility] Medical History Kidney disease Congestive heart failure (CHF) Anxiety Atrial fibrillation Chest pain Non-ST elevation NH (NSTEMI) Atrial flutter Dialysis patient CPAP (continuous positive airway pressure) dependence Pneumonia due to COVID-19 virus Myocardial infarct VERÓNICA (obstructive sleep apnea) Arteriosclerotic cardiovascular disease Dyslipidemia Elevated troponin ESRD on dialysis Wears glasses Wears partial dentures Insulin dependent diabetes mellitus Diabetes High cholesterol Non-smoker COPD (chronic obstructive pulmonary disease) Sleep apnea History of stress test History of echocardiogram Leg cramps Hypertension Cardiology follow-up encounter History of CHF (congestive heart failure) Fistula Hypotension Degenerative disc disease, cervical Diabetes mellitus, type II, insulin dependent Diabetic polyneuropathy (04/2017) GERD (gastroesophageal reflux disease) Chronic kidney disease with end stage renal failure on dialysis Non-ischemic cardiomyopathy Essential (primary) hypertension Syncope (07/2018) Problem with dialysis access Anemia of chronic renal failure, stage 4 (severe) Demand ischemia Morbid obesity Systolic and diastolic CHF, acute Elevated troponin Home Medications ?Medication ?Instructions ?Recorded ?Last Taken ?Type blood-glucose meter (FreeStyle #1 ea 12/22/19 Unknown Rx [place] Lite kit) lancets 28 gauge (FreeStyle #100 ea 12/22/19 Unknown Rx Lancets) pen needle, diabetic 32 gauge x #400 ea 12/22/19 Unknown Rx (BD Ultra-Fine [place] Pen Needle) albuterol sulfate 90 mcg/actuation 2 puff inhalation Q6H PRN 07/26/21 01/21/23 History aerosol inhaler Shortness Of Breath Or Wheezing atorvastatin 80 mg tablet 80 mg PO QHS CHOLESTEROL 07/26/21 02/21/24 History ezetimibe 10 mg tablet 10 mg PO DAILY HIGH CHOLESTEROL 07/26/21 02/21/24 History losartan 50 mg tablet 50 mg PO DAILY BLOOD PRESSURE 07/26/21 10/08/23 History sucroferric oxyhydroxide 500 mg 1,500 mg PO TID KIDNEY HEALTH 02/20/22 02/21/24 History chewable tablet (Velphoro) insulin aspart U-100 100 unit/mL 15 unit subcut .COMPLEX BLOOD SUGAR 01/22/23 02/21/24 History (3 mL) subcutaneous pen (Novolog FlexPen U-100 Insulin aspart) lanthanum 1,000 mg chewable tablet 3,000 mg PO TIDCM for kidneys 01/22/23 02/21/24 History sertraline 50 mg tablet 50 mg PO DAILY ANTI DEPRESSANT 01/22/23 02/21/24 History trazodone 50 mg tablet 50 mg PO QHS SLEEP 01/22/23 02/20/24 History vitamin B complex-vitamin C-folic 1 tab PO DAILY VITAMIN 01/22/23 02/21/24 History acid 0.8 mg tablet (Leonela-Ehrbie) clopidogrel 75 mg tablet 75 mg PO DAILY HEART #90 tabs 02/13/23 02/21/24 Rx dulaglutide 0.75 mg/0.5 mL 0.75 mg subcut QWEEK diabetes 04/10/23 02/16/24 History subcutaneous pen injector (Trulicity) amlodipine 10 mg tablet 10 mg PO DAILY . #30 tabs 04/11/23 02/21/24 Rx cinacalcet 60 mg tablet 120 mg PO DAILY . 05/04/23 02/21/24 History gabapentin 300 mg capsule 300 mg PO QHS PAIN 05/04/23 02/20/24 History nitroglycerin 0.4 mg sublingual 0.4 mg buccal Q5M PRN chest pain 05/04/23 Unknown History tablet cholecalciferol (vitamin D3) 1,250 50,000 unit PO QWEEK SUPPLEMENT 06/07/23 02/21/24 History mcg (50,000 unit) capsule fluticasone propionate 50 2 spray intranasal DAILY . #18.2 mL 06/07/23 Unknown Rx mcg/actuation nasal spray,suspension nifedipine 60 mg tablet,extended 60 mg PO DAILY . 06/07/23 10/08/23 History release ondansetron 4 mg disintegrating 4 mg PO Q8H PRN PRN Nausea #10 tabs 10/17/23 Unknown Rx tablet aspirin 81 mg tablet,delayed 81 mg PO DAILY HEART 02/21/24 02/21/24 History release buspirone 15 mg tablet 15 mg PO BID . 02/21/24 02/21/24 History furosemide 80 mg tablet 80 mg PO DAILY . 02/21/24 Unknown History glimepiride 4 mg tablet 4 mg PO BID DM 02/21/24 02/21/24 History insulin degludec 100 unit/mL (3 40 unit subcut Q24H DM 02/21/24 02/21/24 History mL) subcutaneous pen (Tresiba FlexTouch U-100 insulin) lansoprazole 30 mg capsule,delayed 30 mg PO BID GERD 02/21/24 02/21/24 History release metoprolol succinate 100 mg 100 mg PO BID HTN 02/21/24 02/21/24 History tablet,extended release 24 hr Allergy/AdvReac Type Severity Reaction Status Date / Time liraglutide (From Victoza) Allergy Unknown unknown Verified 02/21/24 09:24 NSAIDS (Non-Steroidal AdvReac Severe Renal Verified 02/21/24 09:24 Anti-Inflamma failure BLANCA Inhibitors AdvReac Intermediate cough Verified 02/21/24 09:24 Family History Mother Hypertension Grandmother Aneurysm Other NSTEMI, initial episode of care Stented coronary artery Surgical History (Updated 02/22/24 @ 13:40 by Angelo Padilla RN) Stented coronary artery Hx of cardiac catheterization (~01/23/23) History of angioplasty of peripheral vessel (07/2021) Presence of surgically created arteriovenous shunt for hemodialysis (07/2017) Social History household members: spouse housing: house Smoking Status: Never smoker alcohol intake: never substance use type: does not use Lab / Micro Data 02/22/24 06:35 02/22/24 06:35
[2024-02-22] MEDS: Cinacalcet HCl 30 MG Tablet 120 MG PO (10:17)
[2024-02-22] MEDS: Lansoprazole 15 MG Capsule.DR 30 MG PO ×2 (10:18→23:35)
[2024-02-22] MEDS: Sertraline 50 MG Tablet PO (10:18)
[2024-02-22] MEDS: Furosemide 80 MG Tablet PO (10:18)
[2024-02-22] MEDS: busPIRone 15 MG TABLET PO ×2 (10:18→23:35)
[2024-02-22] MEDS: Ezetimibe 10 MG Tablet PO (10:18)
[2024-02-22 10:41] LABS: Bedside Glucose 39 mg/dL (74-106)
[2024-02-22 11:40] LABS: Bedside Glucose 62 mg/dL (74-106)
[2024-02-22 13:39] LABS: Bedside Glucose 33 mg/dL (74-106)
[2024-02-22] MEDS: PureFlow B 2K Dialysis Soln 1 BAG 6 BAG PF (13:42)
[2024-02-22] MEDS: 0.9% Normal Saline 1,000 ML IV.SOLN. 1000 ML OPERA.SITE (13:42)
--- NOTE | 2024-02-22 14:10 | CHAPLAIN ---
Type of Pastoral Visit ___ Initial Visit ___ Follow-up Visit ___ On-call Visit ___ General Patient Visit ___ Spiritual Assessment ___ Family Conference ___ Bereavement ___ Rapid Response ___ Code Blue _x__ Other (describe below) Pastoral Care Referral From ___ Patient ___ Family ___ Nurse ___ Physician ___ Color Sprayer ___ Assistant Attorney General ___ Other (describe below) Sacrament/Intervention ___ Active listening ___ Anointing ___ Restorationist ___ Bereavement ___ Communion ___ Olivia exploration ___ ___ Life review ___ Prayer ___ Reconciliation ___ Sacrament of Sick ___ Supportive presence ___ Wedding ___ Other (describe below) Pastoral Comments attempted visit with this patient but he was having a procedure and was sleeping
[2024-02-22 14:20] LABS: Bedside Glucose 80 mg/dL (74-106)
[2024-02-22] MEDS: HEPARIN/D5w 25,000 UNITS 25,000 UNITS/250 ML IV.SOLN. 15 UNITS CONT INF (15:30)
[2024-02-22] MEDS: 0.9% Saline Lock 10 ML Syringe IV (15:31)
[2024-02-22 16:57] LABS: Bedside Glucose 81 mg/dL (74-106)
[2024-02-22 22:07] LABS: Partial Thromboplast Time 44.9 Seconds (24.1-36.2)
[2024-02-22 22:20] LABS: Bedside Glucose 51 mg/dL (74-106)
[2024-02-22] MEDS: traZODone 50 MG Tablet PO (23:35)
[2024-02-22] MEDS: Atorvastatin Calcium 80 MG Tablet PO (23:35)
[2024-02-22] MEDS: Dextrose 10%-Water 250 ML 70 ML IV (23:35)
[2024-02-22] MEDS: Gabapentin 300 MG Capsule PO (23:36)
[2024-02-22 23:56] LABS: Bedside Glucose 66 mg/dL (74-106)
[2024-02-22 23:56] LABS: Bedside Glucose 105 mg/dL (74-106)
[2024-02-23 02:51] VITALS: BP 128/87; PULSE 67; RESP 16; TEMP 36.4; O2SAT 100
[2024-02-23 03:13] LABS: Bedside Glucose 107 mg/dL (74-106)
[2024-02-23] MEDS: Dextrose 10%-Water 250 ML 70 ML IV ×3 (03:18→11:39)
[2024-02-23 05:07] LABS: Absolute Lymphocyte Count 0.68 X10^3/uL (0.83-4.51); Absolute Neutrophil Count 4.1 X10^3/uL (2.0-7.7); Basophil# 0.03 X10^3/uL; Basophil% 0.5 % (0-1); Eosinophil# 0.22 X10^3/uL; Eosinophils% 3.9 % (0-5); Hematocrit 30.1 % (40-54); Hemoglobin 9.7 g/dL (13.0-16.5); Lymphocyte # 0.68 X10^3/ul (0.83-4.51); Lymphocyte % 11.9 % (19-41); Mean Corp Hgb Conc 32.2 g/dL (32-36); Mean Corpuscular Hgb 28.2 pg (27.0-32.0); Mean Corpuscular Volume 87.5 fL (80-94); Mean Platelet Vol. 8.4 fl (6.2-12.0); Monocyte# 0.67 X10^3/uL; Monocyte% 11.7 % (0-10); NRBC Flagged by Analyzer 0 % (0-5); Neutrophil # 4.08 X10^3/uL (2.7-7.7); Neutrophil % 71.5 % (47-70); Platelet Count 202 K/mm3 (150-450); RBC Distribution Width CV 18.3 % (11.6-14.6); RBC Distribution Width SD 58.2 fl (35.1-43.9); Red Blood Count 3.44 M/mm3 (4.6-6.2); White Blood Count 5.7 K/mm3 (4.4-11.0)
[2024-02-23 05:24] LABS: Partial Thromboplast Time 67.8 Seconds (24.1-36.2)
[2024-02-23 05:25] LABS: Anion Gap 7 (5-15); BUN 47 mg/dL (7-18); BUN/Creat Ratio 6.5 RATIO (10-20); Calcium,Total 8.6 mg/dL (8.5-10.1); Chloride 94 mmol/L (98-107); Creatinine, Serum 7.22 mg/dL (0.70-1.30); EST Glomerular Filtration Rate 9 mL/min (>60); Est Glom Filt Rate - Afr Amer 10 mL/min (>60); Estimated Creatinine Clearance 15.56 ml/min; Glucose 91 mg/dL (74-106); Potassium 5.1 mmol/L (3.5-5.1); Sodium Level 130 mmol/L (136-145)
[2024-02-23] MEDS: HEPARIN/D5w 25,000 UNITS 25,000 UNITS/250 ML IV.SOLN. 15 UNITS CONT INF ×2 (06:34→23:27)
[2024-02-23 06:54] LABS: Bedside Glucose 88 mg/dL (74-106)
--- NOTE | 2024-02-23 07:23 | PN.HOSP_ITS ---
Reason for Visit Reason for Visit: Diagnoses Essential (primary) hypertension (02/21/24) Non-ST elevation (NSTEMI) myocardial infarction (02/21/24) Atherosclerotic heart disease of [place] coronary artery without angina pectoris (02/21/24) Cardiomyopathy, unspecified (02/21/24) End stage renal disease (02/21/24) Dependence on renal dialysis (02/21/24) Subjective Subjective No chest pain, shortness of breath. Objective Data Objective Data Vital Signs: Vital Signs Temp Pulse Resp BP Pulse Ox O2 Del Method O2 Flow Rate 36.4 C L 67 16 128/87 H 100 Room Air 2 02/23/24 02:51 02/23/24 02:51 02/23/24 02:51 02/23/24 02:51 02/23/24 02:51 02/23/24 02:51 02/22/24 15:37 Oxygen Flow Rate (L/min) 2 Oxygen Delivery Method Room Air Weight: 126.4 kg Body Mass Index (BMI) 41.3 Intake & Output: Intake and Output for Last 24 Hours 02/21/24 02/22/24 02/23/24 23:59 23:59 23:59 Intake Total 115.6 / 115.6 903.8 / 903.8 617.62 / 617.62 Output Total 3600 / 3600 Balance 115.6 / 115.6 -2696.2 / -2696.2 617.62 / 617.62 Lab / Micro Data 02/23/24 05:02 02/23/24 05:02 Labs: Laboratory Results - last 24 hr 02/22/24 06:35: Sodium 133 L, Potassium 5.0, Chloride 93 L, Carbon Dioxide 28.0, Anion Gap 12, BUN 57 H, Creatinine 8.50 H*, Estim Creat Clear Calc 13.43, Est GFR (MDRD) Af Amer 9 L, Est GFR (MDRD) Non-Af 7 L, BUN/Creatinine Ratio 6.7 L, G lucose 65 L, Calcium 8.4 L 02/22/24 07:14: POC Glucose 97 02/22/24 10:20: POC Glucose 39 L* 02/22/24 11:20: POC Glucose 62 L 02/22/24 13:11: POC Glucose 33 L* 02/22/24 14:03: POC Glucose 80 02/22/24 16:39: POC Glucose 81 02/22/24 21:40: APTT 44.9 H 02/22/24 21:57: POC Glucose 51 L 02/22/24 22:59: POC Glucose 66 L 02/22/24 23:27: POC Glucose 105 02/23/24 02:50: POC Glucose 107 H 02/23/24 05:02: WBC 5.7, RBC 3.44 L, Hgb 9.7 L, Hct 30.1 L, MCV 87.5, MCH 28.2, MCHC 32.2, RDW Std Deviation 58.2 H, RDW Coeff of Kyle 18.3 H, Plt Count 202, MPV 8.4, Immature Gran % (Auto) 0.500, Neut % (Auto) 71.5 H, Lymph % (Auto) 11.9 L, [place] % (Auto) 11.7 H, Eos % (Auto) 3.9, Baso % (Auto) 0.5, Absolute Neuts (auto) 4.1, Absolute Lymphs (auto) 0.68 L, Nucleated RBC % 0, APTT 67.8 H, Sodium 130 L , Potassium 5.1, Chloride 94 L, Carbon Dioxide 29.0, Anion Gap 7, BUN 47 H, C reatinine 7.22 H, Estim Creat Clear Calc 15.56, Est GFR (MDRD) Af Amer 10 L, Est GFR (MDRD) Non-Af 9 L, BUN/Creatinine Ratio 6.5 L, Glucose 91, Calcium 8.6 02/23/24 06:27: POC Glucose 88 Physical Exam Const alert Constitutional Narrative: up in chair on room air. no respiratory distress no conversational dyspnea. HEENT head/scalp atraumatic and moist oral mucous membranes Resp normal respiratory effort, no retractions, no use of accessory muscles and clear to auscultation bilaterally Cardio regular rate, regular rhythm, S1 normal heart sound and S2 normal heart sound Extremity normal to inspection Assessment & Plan Assessment/Plan (1) NSTEMI, initial episode of care: PLAN: Plan NSTEMI * troponins peaked at 7302, since trending downwards. * cardiology on consult. Patient had a left heart cath that showed in-stent stenosis of the left circumflex lesion. Discussed with Dr. Nevarez, who recommended transfer back to [place]. I reached out to the [facility]not [facility] 02/21. Provided my information, including my phone number. Still waiting to hear back. * heparin gtt. continue ASA, statin and clopidogrel. * pt had recent PCI in [facility]. Through [facility]: PCI to LCx ESRD * on HD MWF * nephrology on consult * Patient had hemodialysis on 02/21 Chronic conditions: * Type 2 diabetes mellitus: -Glucose checks and sliding scale insulin- continue long-acting insulin slightly lower dose than home dose and uptitrate if no hypoglycemia given glucose in ED is 68 * paroxysmal atrial fibrillation-Per available history-Pt in NSR-On aspirin and plavix, not currently on eliquis-Continue metoprolol * VERÓNICA-Continue home NIPPV if applicable * GERD-Continue PPI * Obesity class III: complicates care and recovery * History of hypertension-Continue metoprolol and amlodipine-Patient unsure if he is still taking losartan nifedipine but these do not appear to open recently filled so we will hold off on beginning these VTE prophylaxis: not indicated as already anticoagulated. Charges/Coding Visit Charges Inpatient E&M: 36721 Subs Hosp L2
[2024-02-23 09:44] VITALS: BP 102/65; PULSE 70; RESP 16; TEMP 36.4; O2SAT 98
[2024-02-23] MEDS: Lansoprazole 15 MG Capsule.DR 30 MG PO ×2 (09:46→21:48)
[2024-02-23] MEDS: busPIRone 15 MG TABLET PO ×2 (09:46→21:48)
[2024-02-23] MEDS: Aspirin E.C. 81 MG Tablet PO (09:46)
[2024-02-23] MEDS: Furosemide 80 MG Tablet PO (09:47)
[2024-02-23] MEDS: Cinacalcet HCl 30 MG Tablet 120 MG PO (09:47)
[2024-02-23] MEDS: Clopidogrel Bisulfate 75 MG Tablet PO (09:48)
[2024-02-23] MEDS: Ezetimibe 10 MG Tablet PO (09:48)
[2024-02-23] MEDS: Sertraline 50 MG Tablet PO (09:48)
[2024-02-23 11:46] VITALS: BP 109/77; PULSE 66
[2024-02-23] MEDS: amLODIPine 10 MG Tablet PO (11:46)
[2024-02-23] MEDS: Metoprolol(XL)Succ 100 MG Tablet PO ×2 (11:46→21:49)
[2024-02-23 11:50] LABS: Partial Thromboplast Time 65.8 Seconds (24.1-36.2)
[2024-02-23 13:18] LABS: Bedside Glucose 84 mg/dL (74-106)
[2024-02-23 15:50] VITALS: BP 122/79; PULSE 69; RESP 16; TEMP 36.3; O2SAT 94
[2024-02-23 18:08] LABS: Partial Thromboplast Time 62.2 Seconds (24.1-36.2)
[2024-02-23 18:59] LABS: Bedside Glucose 136 mg/dL (74-106)
[2024-02-23 21:43] VITALS: BP 128/82; PULSE 68; RESP 18; TEMP 36.4; O2SAT 100
[2024-02-23] MEDS: Gabapentin 300 MG Capsule PO (21:48)
[2024-02-23 21:49] VITALS: BP 128/82; PULSE 68
[2024-02-23] MEDS: Atorvastatin Calcium 80 MG Tablet PO (21:49)
[2024-02-23] MEDS: traZODone 50 MG Tablet PO (21:49)
[2024-02-23 22:10] LABS: Bedside Glucose 89 mg/dL (74-106)
[2024-02-24 03:45] VITALS: BP 113/70; PULSE 66; RESP 16; TEMP 36.4; O2SAT 100
[2024-02-24 03:45] LABS: Bedside Glucose 56 mg/dL (74-106)
[2024-02-24 04:11] LABS: Bedside Glucose 70 mg/dL (74-106)
[2024-02-24 06:00] VITALS: BMI 44.1
[2024-02-24 06:51] LABS: Bedside Glucose 109 mg/dL (74-106)
[2024-02-24 07:09] LABS: Partial Thromboplast Time 48.4 Seconds (24.1-36.2)
--- NOTE | 2024-02-24 08:00 | PN.HOSP_ITS ---
Reason for Visit Reason for Visit: Diagnoses Essential (primary) hypertension (02/21/24) Non-ST elevation (NSTEMI) myocardial infarction (02/21/24) Atherosclerotic heart disease of [place] coronary artery without angina pectoris (02/21/24) Cardiomyopathy, unspecified (02/21/24) End stage renal disease (02/21/24) Dependence on renal dialysis (02/21/24) Subjective Subjective Feels well. No events overnight. Objective Data Objective Data Vital Signs: Vital Signs Temp Pulse Resp BP Pulse Ox O2 Del Method O2 Flow Rate 36.4 C L 66 16 113/70 100 Room Air 2 02/24/24 03:45 02/24/24 03:45 02/24/24 03:45 02/24/24 03:45 02/24/24 03:45 02/24/24 07:25 02/24/24 03:45 Oxygen Flow Rate (L/min) 2 Oxygen Delivery Method Room Air Weight: 135.125 kg Body Mass Index (BMI) 44.1 Intake & Output: Intake and Output for Last 24 Hours 02/22/24 02/23/24 02/24/24 23:59 23:59 23:59 Intake Total 903.8 / 903.8 1767.62 / 1767.62 118.25 / 118.25 Output Total 3600 / 3600 Balance -2696.2 / -2696.2 1767.62 / 1767.62 118.25 / 118.25 Lab / Micro Data 02/23/24 05:02 02/23/24 05:02 Labs: Laboratory Results - last 24 hr 02/23/24 11:30: APTT 65.8 H 02/23/24 11:42: POC Glucose 84 02/23/24 15:44: POC Glucose 136 H 02/23/24 17:40: APTT 62.2 H 02/23/24 21:45: POC Glucose 89 02/24/24 03:25: POC Glucose 56 L 02/24/24 03:53: POC Glucose 70 L 02/24/24 05:36: APTT 48.4 H 02/24/24 06:20: POC Glucose 109 H Physical Exam Const Constitutional Narrative: Up in chair watching TV. On room air. No respiratory distress. No conversational dyspnea. HEENT head/scalp atraumatic and moist oral mucous membranes Resp normal respiratory effort, no retractions, no use of accessory muscles and clear to auscultation bilaterally Cardio regular rate, regular rhythm, S1 normal heart sound and S2 normal heart sound GI normal to inspection, nondistended, normoactive bowel sounds, soft to palpation, non-tender and non-distended Extremity normal to inspection and no clubbing, cyanosis or edema Neuro Sensorium / Orientation: awake and alert Assessment & Plan Assessment/Plan (1) NSTEMI, initial episode of care: PLAN: Plan NSTEMI * troponins peaked at 7302, since trending downwards. * cardiology on consult. Patient had a left heart cath that showed in-stent stenosis of the left circumflex lesion. Discussed with Dr. Nevarez 02/21, who recommended transfer back to [facility]. [facility]. Provided my information, including my phone number. Called [facility] again, they said they did not have pushed images. After imaging is pushed, they will reach back to me about transfer. I was noted played the evening on the that that the patient's transfer was rejected. I called in the morning of the I verified with Dr. Bosch and he states that given the in-stent stenosis that this should be addressed directly at a tertiary facility. And I was told that the transfer was not rejected but they would need to have images pushed to be able to review with cardiology to see what the next step would be. I spoke with the charge nurse and he will talk to [place] to have the images pushed over to [facility]. Then once those images can be pushed the transfer liaison will speak with cardiology and notify us the patient has been accepted. * heparin gtt. continue ASA, statin and clopidogrel. * pt had recent PCI in [facility]. Through [facility]: PCI to LCx * I discussed with the patient today, he told me that when he was that when he was discharged from [facility] that he was told only to take aspirin and not clopidogrel. Though, through [facility], there is a discharge summary from the that patient was to be on Eliquis, clopidogrel, metoprolol and furosemide. And during that hospitalization patient did have in-stent restenosis of the left circumflex artery. ESRD * on HD MWF * nephrology on consult * Patient had hemodialysis on 02/21 Chronic conditions: * Type 2 diabetes mellitus: -Glucose checks and sliding scale insulin- continue long-acting insulin slightly lower dose than home dose and uptitrate if no hypoglycemia given glucose in ED is 68 * paroxysmal atrial fibrillation-Per available history-Pt in NSR-On aspirin and plavix, not currently on eliquis-Continue metoprolol * VERÓNICA-Continue home NIPPV if applicable * GERD-Continue PPI * Obesity class III: complicates care and recovery * History of hypertension-Continue metoprolol and amlodipine-Patient unsure if he is still taking losartan nifedipine but these do not appear to open recently filled so we will hold off on beginning these VTE prophylaxis: not indicated as already anticoagulated. Greater than 55 minutes of which greater than 50% of time was discussing with cardiology here, discussing again with the the [facility] transfer line, reviewing data through [facility]. Charges/Coding Visit Charges Inpatient E&M: 17259 Subs Hosp L3
--- NOTE | 2024-02-24 08:00 | PCM.PN.REN ---
Subjective Subjective Following for ESRD. The patient denies chest pain, dyspnea, or nausea. Still awaiting transfer to [facility] Objective Data Objective Data Vital Signs: Vital Signs Temp Pulse Resp BP Pulse Ox O2 Del Method O2 Flow Rate 97.5 F L 66 16 113/70 100 Room Air 2 02/24/24 03:45 02/24/24 03:45 02/24/24 03:45 02/24/24 03:45 02/24/24 03:45 02/24/24 07:25 02/24/24 03:45 Oxygen Flow Rate (L/min) 2 Oxygen Delivery Method Room Air Weight: 135.125 kg Body Mass Index (BMI) 44.1 Intake & Output: Intake and Output for Last 24 Hours 02/22/24 02/23/24 02/24/24 23:59 23:59 23:59 Intake Total 903.8 / 903.8 1767.62 / 1767.62 118.25 / 118.25 Output Total 3600 / 3600 Balance -2696.2 / -2696.2 1767.62 / 1767.62 118.25 / 118.25 Lab / Micro Data 02/23/24 05:02 02/23/24 05:02 Labs: Laboratory Results - last 24 hr 02/23/24 11:30: APTT 65.8 H 02/23/24 11:42: POC Glucose 84 02/23/24 15:44: POC Glucose 136 H 02/23/24 17:40: APTT 62.2 H 02/23/24 21:45: POC Glucose 89 02/24/24 03:25: POC Glucose 56 L 02/24/24 03:53: POC Glucose 70 L 02/24/24 05:36: APTT 48.4 H 02/24/24 06:20: POC Glucose 109 H Physical Exam Narrative Alert and oriented x 3, no apparent distress. Drowsy post heart cath procedure S1, S2, RRR Lung sounds clear anteriorly and posteriorly. No wheezes, rhonchi or rales Abdomen soft, nontender, rounded No edema Left forearm AV fistula positive thrill and bruit Assessment & Plan Assessment/Plan (1) ESRD on dialysis: (2) Hypertension: (3) NSTEMI, initial episode of care: PLAN: Plan Impression/Plan: The patient is a 53-year-old male with past medical history significant for ESRD currently dialyzing Sunday at [facility] [place] followed by Dr. Lamar who presented emergency room with complaints of midsternal chest pain. Found to have detectable troponin, admitted for non-STEMI, started on heparin drip. Cardiology consulted and patient underwent heart cath on 02/22/2024. He is awaiting transfer to [facility] for PCI. Nephrology is following for ESRD and dialysis management. ESRD. Patient was last dialyzed on 02/22/2024 and tolerated dialysis well. Will keep patient on MWF dialysis schedule while he is in the hospital. No need for dialysis today. Will plan on dialysis again tomorrow and 02/25/2024. Anemia in CKD. Patient has a history of anemia of chronic disease, hemoglobin is 9.7 g/dL. He does not need FARRAH with dialysis today. The patient received Mircera on 01/30/2024 (225mcg) at kidney center. Will resume FARRAH when he returns to outpatient kidney center. 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 Continue Cinacalcet. Will monitor calcium level which is currently acceptable. Recheck calcium/phosphorus and PTH as outpatient at kidney center. Hypertension. Blood pressures acceptable. Continue current antihypertensives.
[2024-02-24 08:59] LABS: Bedside Glucose 103 mg/dL (74-106)
[2024-02-24 09:06] VITALS: BP 113/81; PULSE 68; RESP 16; TEMP 36.5; O2SAT 98
[2024-02-24] MEDS: busPIRone 15 MG TABLET PO ×2 (09:10→21:34)
[2024-02-24] MEDS: Furosemide 80 MG Tablet PO (09:10)
[2024-02-24] MEDS: Lansoprazole 15 MG Capsule.DR 30 MG PO ×2 (09:10→21:34)
[2024-02-24] MEDS: Aspirin E.C. 81 MG Tablet PO (09:10)
[2024-02-24] MEDS: amLODIPine 10 MG Tablet PO (09:11)
[2024-02-24] MEDS: Clopidogrel Bisulfate 75 MG Tablet PO (09:12)
[2024-02-24] MEDS: Cinacalcet HCl 30 MG Tablet 120 MG PO (09:12)
[2024-02-24 09:13] VITALS: BP 113/81; PULSE 68
[2024-02-24] MEDS: Metoprolol(XL)Succ 100 MG Tablet PO ×2 (09:13→21:34)
[2024-02-24] MEDS: Ezetimibe 10 MG Tablet PO (09:13)
[2024-02-24] MEDS: Sertraline 50 MG Tablet PO (09:13)
[2024-02-24 13:28] LABS: Bedside Glucose 115 mg/dL (74-106)
[2024-02-24 13:33] LABS: Partial Thromboplast Time 67.1 Seconds (24.1-36.2)
[2024-02-24] MEDS: HEPARIN/D5w 25,000 UNITS 25,000 UNITS/250 ML IV.SOLN. 16 UNITS CONT INF (14:47)
--- NOTE | 2024-02-24 15:03 | NURSING ---
Addendum entered by Robyn Montanez 02/24/24 15:06: Granulator notified of need at 0730. Original Note: Granulator notified of need for heart cath images to be pushed to [facility].
[2024-02-24 16:24] VITALS: BP 119/84; PULSE 65; RESP 16; TEMP 36.4; O2SAT 96
[2024-02-24] MEDS: Mag Hydrox/Al Hydrox/Simeth 30 ML UDC 15 ML PO ×2 (19:40→23:35)
[2024-02-24 20:01] LABS: Partial Thromboplast Time 48.7 Seconds (24.1-36.2)
[2024-02-24 21:27] VITALS: BP 118/84; PULSE 64; RESP 16; TEMP 36.4; O2SAT 100
[2024-02-24] MEDS: traZODone 50 MG Tablet PO (21:33)
[2024-02-24 21:34] VITALS: BP 118/84; PULSE 64
[2024-02-24] MEDS: Atorvastatin Calcium 80 MG Tablet PO (21:34)
[2024-02-24] MEDS: Gabapentin 300 MG Capsule PO (21:35)
[2024-02-24 21:55] LABS: Bedside Glucose 71 mg/dL (74-106)
[2024-02-24 23:33] LABS: Bedside Glucose 138 mg/dL (74-106)
[2024-02-25] VITALS (18 sets, daily range): BP systolic 130–296; BP diastolic 84–125; PULSE 64–92; RESP 14–20; TEMP 36.3–36.9; O2SAT 93–100; BMI 43.4; BMI 42.4
[2024-02-25 02:30] LABS: Absolute Lymphocyte Count 0.73 X10^3/uL (0.83-4.51); Absolute Neutrophil Count 5.3 X10^3/uL (2.0-7.7); Basophil# 0.04 X10^3/uL; Basophil% 0.6 % (0-1); Eosinophil# 0.27 X10^3/uL; Eosinophils% 3.8 % (0-5); Hematocrit 32.9 % (40-54); Hemoglobin 10.9 g/dL (13.0-16.5); Lymphocyte # 0.73 X10^3/ul (0.83-4.51); Lymphocyte % 10.4 % (19-41); Mean Corp Hgb Conc 33.1 g/dL (32-36); Mean Corpuscular Hgb 28.7 pg (27.0-32.0); Mean Corpuscular Volume 86.6 fL (80-94); Mean Platelet Vol. 9.1 fl (6.2-12.0); Monocyte# 0.67 X10^3/uL; Monocyte% 9.5 % (0-10); NRBC Flagged by Analyzer 0 % (0-5); Neutrophil % 75.4 % (47-70); Platelet Count 283 K/mm3 (150-450); RBC Distribution Width CV 18.2 % (11.6-14.6); RBC Distribution Width SD 56.8 fl (35.1-43.9)
[2024-02-25 02:42] LABS: Partial Thromboplast Time 71.6 Seconds (24.1-36.2)
[2024-02-25 02:55] LABS: Anion Gap 13 (5-15); BUN 71 mg/dL (7-18); BUN/Creat Ratio 7.2 RATIO (10-20); Calcium,Total 8.2 mg/dL (8.5-10.1); Chloride 90 mmol/L (98-107); Creatinine, Serum 9.87 mg/dL (0.70-1.30); EST Glomerular Filtration Rate 6 mL/min (>60); Est Glom Filt Rate - Afr Amer 7 mL/min (>60); Estimated Creatinine Clearance 11.81 ml/min; Glucose 108 mg/dL (74-106); Potassium 6.3 mmol/L (3.5-5.1); Sodium Level 125 mmol/L (136-145)
[2024-02-25] MEDS: Dextrose 50%-Water 25 GM/50 ML DISP.SYRIN IV (03:32)
[2024-02-25] MEDS: Sodium Polystyrene Sulfonate 15 GM/60 ML UDC 30 GM PO (03:32)
[2024-02-25] MEDS: Insulin Lispro 100 UNIT/ML VIAL (ADMELOG) IV (03:32)
[2024-02-25] MEDS: 0.9% Saline Lock 10 ML Syringe IV ×2 (03:35→21:03)
[2024-02-25] MEDS: HEPARIN/D5w 25,000 UNITS 25,000 UNITS/250 ML IV.SOLN. 16 UNITS CONT INF (06:32)
--- NOTE | 2024-02-25 07:46 | NURSING ---
I spoke to Evy at [facility] transfer line she asked to make sure the images were pushed through, I called the [facility] and they stated they would push them through again. Evy stated she would look for the images and someone would give a call back with a bed update.
[2024-02-25 08:54] LABS: Bedside Glucose 61 mg/dL (74-106)
[2024-02-25 08:54] LABS: Bedside Glucose 62 mg/dL (74-106)
--- NOTE | 2024-02-25 09:13 | NURSING ---
7am blood sugar was 61, given orange juice. Blood sugar rechecked 15 minutes later and was 62, given breakfast. After breakfast blood sugar was 124. RN notified.
[2024-02-25 09:26] LABS: Bedside Glucose 124 mg/dL (74-106)
[2024-02-25 09:42] LABS: Partial Thromboplast Time 100.2 Seconds (24.1-36.2)
--- NOTE | 2024-02-25 10:03 | NURSING ---
Hep gtt paused at 0950 due to aptt of 100.2, due to significant increase in aptt from prior, lab called to repeat stat aptt.
[2024-02-25 10:31] LABS: Partial Thromboplast Time 84.6 Seconds (24.1-36.2)
[2024-02-25 11:34] LABS: Bedside Glucose 105 mg/dL (74-106)
[2024-02-25] MEDS: 0.9% Normal Saline 1,000 ML IV.SOLN. 1000 ML OPERA.SITE (12:47)
[2024-02-25] MEDS: PureFlow B 2K Dialysis Soln 1 BAG 6 BAG PF (12:48)
--- NOTE | 2024-02-25 14:48 | PN.CARD_ITS ---
Subjective Subjective Patient seen and evaluated. Objective Data Vital Signs: Vital Signs Temp Pulse Resp BP Pulse Ox O2 Del Method O2 Flow Rate 98.4 F 87 14 178/101 H 96 Nasal Cannula 3 02/25/24 12:41 02/25/24 14:30 02/25/24 14:30 02/25/24 14:30 02/25/24 14:30 02/25/24 14:30 02/25/24 14:30 Oxygen Flow Rate (L/min) 3 Oxygen Delivery Method Nasal Cannula Weight: 293 lb 3.437 oz Body Mass Index (BMI) 43.4 Intake & Output: Intake and Output for Last 24 Hours 02/23/24 02/24/24 02/25/24 23:59 23:59 23:59 Intake Total 1767.62 / 1767.62 1005.98 / 1005.98 214.27 / 214.27 Balance 1767.62 / 1767.62 1005.98 / 1005.98 214.27 / 214.27 Lab / Micro Data 02/25/24 02:16 02/25/24 02:16 Labs: Laboratory Results - last 24 hr 02/24/24 16:27: POC Glucose 138 H 02/24/24 19:35: APTT 48.7 H 02/24/24 21:32: POC Glucose 71 L 02/25/24 02:16: WBC 7.0, RBC 3.80 L, Hgb 10.9 L, Hct 32.9 L, MCV 86.6, MCH 28.7, MCHC 33.1, RDW Std Deviation 56.8 H, RDW Coeff of Kyle 18.2 H, Plt Count 283, MPV 9.1, Immature Gran % (Auto) 0.300, Neut % (Auto) 75.4 H, Lymph % (Auto) 10.4 L, Woodson % (Auto) 9.5, Eos % (Auto) 3.8, Baso % (Auto) 0.6, Absolute Neuts (auto) 5.3, Absolute Lymphs (auto) 0.73 L, Nucleated RBC % 0, APTT 71.6 H, Sodium 125 L , Potassium 6.3 H*, Chloride 90 L, Carbon Dioxide 23.0, Anion Gap 13, BUN 71 H, Creatinine 9.87 H*, Estim Creat Clear Calc 11.81, Est GFR (MDRD) Af Amer 7 L, E st GFR (MDRD) Non-Af 6 L, BUN/Creatinine Ratio 7.2 L, Glucose 108 H, Calcium 8.2 L 02/25/24 08:09: POC Glucose 61 L 02/25/24 08:29: POC Glucose 62 L 02/25/24 09:08: POC Glucose 124 H 02/25/24 09:20: APTT 100.2 H* 02/25/24 09:57: APTT 84.6 H 02/25/24 11:16: POC Glucose 105 Cardiology Labs/Tests 02/24/24 19:35: APTT 48.7 H 02/25/24 02:16: WBC 7.0, RBC 3.80 L, Hgb 10.9 L, Hct 32.9 L, MCV 86.6, MCH 28.7, MCHC 33.1, Plt Count 283, MPV 9.1, Immature Gran % (Auto) 0.300, Neut % (Auto) 75.4 H, Lymph % (Auto) 10.4 L, Woodson % (Auto) 9.5, Eos % (Auto) 3.8, Baso % (Auto) 0.6, Absolute Neuts (auto) 5.3, Nucleated RBC % 0, APTT 71.6 H, Sodium 125 L, Potassium 6.3 H*, Chloride 90 L, Carbon Dioxide 23.0, Anion Gap 13, BUN 71 H, Creatinine 9.87 H*, Est GFR (MDRD) Af Amer 7 L, Est GFR (MDRD) Non-Af 6 L, BUN/Creatinine Ratio 7.2 L, Glucose 108 H, Calcium 8.2 L 02/25/24 09:20: APTT 100.2 H* 02/25/24 09:57: APTT 84.6 H Rhythm: EKG: ECHO: Stress Test: Cardiac Cath: PCI: CT Surgery: Holter monitor: EPS: PPM: CXR: Chest CT Scan: Physical Exam Const alert, oriented x3 and no apparent distress General Appearance: cooperative HEENT hearing grossly normal bilaterally Head and Scalp: atraumatic Eyes EOMs intact bilaterally Neck General: normal visual inspection Chest inspection of chest normal and palpation of chest normal Resp normal respiratory effort Auscultation: clear to auscultation bilaterally Cardio regular rate, regular rhythm, S1 normal heart sound and S2 normal heart sound Jugular Venous Distention: JVD GI normal to inspection, nondistended, normoactive bowel sounds Extremity normal capillary refill and no pedal edema Extremity Narrative: Left upper arm fistula for dialysis Peripheral Pulses: Yes pulses 2+ throughout and femoral pulses present Skin no rashes or lesions noted Neuro oriented x3 and CN's II-XII intact bilaterally Psych Appearance: grossly normal and appropriate Assessment & Plan Assessment/Plan (1) NSTEMI, initial episode of care: PLAN: He does present with atypical chest discomfort is noted to have a non-ST elevation myocardial infarction. His cardiac catheterization this morning demonstrated restenosis of his recently placed stent in the proximal left circumflex artery. To the mid to distal stent appears to be patent the LAD has moderate disease in the right coronary artery is nondominant. This was discussed with interventional service here including this morning as well. They are uncomfortable proceeding with PCI and recommend that he be transferred back to [facility] where he had his coronary intervention. Patient appears to be stable at this time. Will sign off at this time please reconsult as necessary. (2) Hypertension: PLAN: His blood pressure appears to be under decent control. Will continue his current aggressive therapy. (3) Coronary artery disease: PLAN: He does have known coronary artery disease with a nondominant right coronary artery, left circumflex artery which was stented in the fall 2022 and a more recent stent procedure performed at [facility] the details of which are not clear at this particular time. As noted above. (4) Cardiomyopathy: QUALIFIERS: Cardiomyopathy type: unspecified Qualified Code(s): I 42.9 - Cardiomyopathy, unspecified PLAN: He does have a cardiomyopathy which is likely multifactorial. This will be reevaluated with a limited echocardiogram.
--- NOTE | 2024-02-25 15:40 | CHAPLAIN ---
Type of Pastoral Visit ___ Initial Visit ___ Follow-up Visit ___ On-call Visit ___ General Patient Visit ___ Spiritual Assessment ___ Family Conference ___ Bereavement ___ Rapid Response ___ Code Blue ___ Other (describe below) Pastoral Care Referral From ___ Patient ___ Family ___ Nurse ___ Physician ___ Gradall Operator ___ Medical Billing Specialist ___ Other (describe below) Sacrament/Intervention ___ Active listening ___ Anointing ___ Hindu ___ Bereavement ___ Communion ___ Olivia exploration ___ ___ Life review ___ Prayer ___ Reconciliation ___ Sacrament of Sick ___ Supportive presence ___ Wedding ___ Other (describe below) Pastoral Comments patient is asleep and receiving his dialysis now
[2024-02-25] MEDS: Metoprolol(XL)Succ 100 MG Tablet PO ×2 (16:19→21:03)
[2024-02-25] MEDS: Sertraline 50 MG Tablet PO (16:19)
[2024-02-25] MEDS: Ezetimibe 10 MG Tablet PO (16:19)
[2024-02-25 16:22] LABS: Bedside Glucose 94 mg/dL (74-106)
[2024-02-25] MEDS: amLODIPine 10 MG Tablet PO (16:22)
[2024-02-25] MEDS: Cinacalcet HCl 30 MG Tablet 120 MG PO (16:22)
[2024-02-25] MEDS: Clopidogrel Bisulfate 75 MG Tablet PO (16:22)
[2024-02-25] MEDS: Furosemide 80 MG Tablet PO (16:23)
[2024-02-25] MEDS: Lansoprazole 15 MG Capsule.DR 30 MG PO ×2 (16:23→21:03)
[2024-02-25] MEDS: busPIRone 15 MG TABLET PO ×2 (16:24→21:03)
[2024-02-25] MEDS: Aspirin E.C. 81 MG Tablet PO (16:24)
[2024-02-25 17:32] LABS: Partial Thromboplast Time 61.1 Seconds (24.1-36.2)
--- NOTE | 2024-02-25 18:00 | PN.HOSP_ITS ---
Reason for Visit Reason for Visit: Diagnoses Essential (primary) hypertension (02/21/24) Non-ST elevation (NSTEMI) myocardial infarction (02/21/24) Atherosclerotic heart disease of [place] coronary artery without angina pectoris (02/21/24) Cardiomyopathy, unspecified (02/21/24) End stage renal disease (02/21/24) Dependence on renal dialysis (02/21/24) Subjective Subjective Patient was seen and examined today, he had no complaints of chest pain or shortness of breath, I briefly talked with [facility] and they agreed to do except the patient, I am somewhat confused because information left with me led me to believe that the clinic had already excepted the patient, they stated on the phone today that they needed to locate a bed at [facility] to take the patient. Patient had dialysis today and I briefly talked with nephrology. In addition, I had conversation with cardiology about his care and verified that they would like the patient to go to a tertiary center for further care of his heart disease. Objective Data Objective Data Vital Signs: Vital Signs Temp Pulse Resp BP Pulse Ox O2 Del Method O2 Flow Rate 97.8 F 76 14 156/101 H 95 Nasal Cannula 3 02/25/24 15:40 02/25/24 16:19 02/25/24 15:40 02/25/24 16:19 02/25/24 15:40 02/25/24 15:40 02/25/24 15:40 Oxygen Flow Rate (L/min) 3 Oxygen Delivery Method Nasal Cannula Weight: 130 kg Body Mass Index (BMI) 42.4 Intake & Output: Intake and Output for Last 24 Hours 02/23/24 02/24/24 02/25/24 23:59 23:59 23:59 Intake Total 1767.62 / 1767.62 1005.98 / 1005.98 214.27 / 214.27 Output Total 3690 / 3690 Balance 1767.62 / 1767.62 1005.98 / 1005.98 -3475.73 / -3475.73 Lab / Micro Data 02/25/24 02:16 02/25/24 02:16 Labs: Laboratory Results - last 24 hr 02/24/24 16:27: POC Glucose 138 H 02/24/24 19:35: APTT 48.7 H 02/24/24 21:32: POC Glucose 71 L 02/25/24 02:16: WBC 7.0, RBC 3.80 L, Hgb 10.9 L, Hct 32.9 L, MCV 86.6, MCH 28.7, MCHC 33.1, RDW Std Deviation 56.8 H, RDW Coeff of Kyle 18.2 H, Plt Count 283, MPV 9.1, Immature Gran % (Auto) 0.300, Neut % (Auto) 75.4 H, Lymph % (Auto) 10.4 L, Cecil % (Auto) 9.5, Eos % (Auto) 3.8, Baso % (Auto) 0.6, Absolute Neuts (auto) 5.3, Absolute Lymphs (auto) 0.73 L, Nucleated RBC % 0, APTT 71.6 H, Sodium 125 L , Potassium 6.3 H*, Chloride 90 L, Carbon Dioxide 23.0, Anion Gap 13, BUN 71 H, Creatinine 9.87 H*, Estim Creat Clear Calc 11.81, Est GFR (MDRD) Af Amer 7 L, E st GFR (MDRD) Non-Af 6 L, BUN/Creatinine Ratio 7.2 L, Glucose 108 H, Calcium 8.2 L 02/25/24 08:09: POC Glucose 61 L 02/25/24 08:29: POC Glucose 62 L 02/25/24 09:08: POC Glucose 124 H 02/25/24 09:20: APTT 100.2 H* 02/25/24 09:57: APTT 84.6 H 02/25/24 11:16: POC Glucose 105 02/25/24 16:04: POC Glucose 94 02/25/24 16:50: APTT 61.1 H Physical Exam Const alert, oriented x3 and no apparent distress Constitutional Narrative: Patient is morbidly obese General Appearance: cooperative, well kempt and well developed Orientation / Consciousness: awake, oriented to person, oriented to place and oriented to time HEENT normocephalic, head/scalp atraumatic and moist oral mucous membranes Eyes PERRL, EOMs intact bilaterally and conjunctivae normal Neck supple, no JVD, thyroid normal and no carotid bruits General: trachea midline Resp normal respiratory effort, no retractions, no use of accessory muscles and clear to auscultation bilaterally Auscultation: Negative for rales, rhonchi or wheezes Cardio regular rate, regular rhythm, S1 normal heart sound, S2 normal heart sound, no murmurs, no rub and no gallops GI normal to inspection, nondistended, normoactive bowel sounds, soft to palpation, non-tender and non-distended Extremity no clubbing, cyanosis or edema Skin no rashes or lesions noted General Skin Exam: no breakdown Neuro oriented x3, CN's II-XII intact bilaterally, no focal motor deficits and no sensory deficits noted Sensorium / Orientation: awake and alert Speech: speech normal Psych affect normal Assessment & Plan Assessment/Plan (1) NSTEMI, initial episode of care: PLAN: Plan 1. Non-STEMI with evidence of obstructive coronary artery disease on recent heart catheterization-we are awaiting bed assignment at [facility], continue present medications #2 end-stage renal disease requiring dialysis-patient will be dialyzed today #3 ischemic cardiomyopathy-complicates care, management, recovery, and prognosis #4 essential hypertension-continue with present medications #5 morbid obesity-complicates care, management, recovery, and prognosis Total clinical time spent by myself addressing the patient's medical issues, reviewing all of his data, and collaborating with patient's care team: 35 minutes Charges/Coding Visit Charges Inpatient E&M: 49821 Subs Hosp L2
--- NOTE | 2024-02-25 18:11 | PCM.PN.REN ---
Subjective Subjective seen on HD today Objective Data Objective Data Vital Signs: Vital Signs Temp Pulse Resp BP Pulse Ox O2 Del Method O2 Flow Rate 97.8 F 76 14 156/101 H 95 Nasal Cannula 3 02/25/24 15:40 02/25/24 16:19 02/25/24 15:40 02/25/24 16:19 02/25/24 15:40 02/25/24 15:40 02/25/24 15:40 Oxygen Flow Rate (L/min) 3 Oxygen Delivery Method Nasal Cannula Weight: 130 kg Body Mass Index (BMI) 42.4 Intake & Output: Intake and Output for Last 24 Hours 02/23/24 02/24/24 02/25/24 23:59 23:59 23:59 Intake Total 1767.62 / 1767.62 1005.98 / 1005.98 214.27 / 214.27 Output Total 3690 / 3690 Balance 1767.62 / 1767.62 1005.98 / 1005.98 -3475.73 / -3475.73 Lab / Micro Data 02/25/24 02:16 02/25/24 02:16 Labs: Laboratory Results - last 24 hr 02/24/24 16:27: POC Glucose 138 H 02/24/24 19:35: APTT 48.7 H 02/24/24 21:32: POC Glucose 71 L 02/25/24 02:16: WBC 7.0, RBC 3.80 L, Hgb 10.9 L, Hct 32.9 L, MCV 86.6, MCH 28.7, MCHC 33.1, RDW Std Deviation 56.8 H, RDW Coeff of Kyle 18.2 H, Plt Count 283, MPV 9.1, Immature Gran % (Auto) 0.300, Neut % (Auto) 75.4 H, Lymph % (Auto) 10.4 L, Burke % (Auto) 9.5, Eos % (Auto) 3.8, Baso % (Auto) 0.6, Absolute Neuts (auto) 5.3, Absolute Lymphs (auto) 0.73 L, Nucleated RBC % 0, APTT 71.6 H, Sodium 125 L, Potassium 6.3 H*, Chloride 90 L, Carbon Dioxide 23.0, Anion Gap 13, BUN 71 H, Creatinine 9.87 H*, Estim Creat Clear Calc 11.81, Est GFR (MDRD) Af Amer 7 L, Est GFR (MDRD) Non-Af 6 L, BUN/Creatinine Ratio 7.2 L, Glucose 108 H, Calcium 8.2 L 02/25/24 08:09: POC Glucose 61 L 02/25/24 08:29: POC Glucose 62 L 02/25/24 09:08: POC Glucose 124 H 02/25/24 09:20: APTT 100.2 H* 02/25/24 09:57: APTT 84.6 H 02/25/24 11:16: POC Glucose 105 02/25/24 16:04: POC Glucose 94 02/25/24 16:50: APTT 61.1 H Physical Exam Narrative Alert and oriented x 3, no apparent distress. Drowsy post heart cath procedure S1, S2, RRR Lung sounds clear anteriorly and posteriorly. No wheezes, rhonchi or rales Abdomen soft, nontender, rounded No edema Left forearm AV fistula positive thrill and bruit Assessment & Plan Assessment/Plan (1) ESRD on dialysis: (2) Hypertension: (3) NSTEMI, initial episode of care: PLAN: Plan Impression/Plan: The patient is a 53-year-old male with past medical history significant for ESRD [facility]. Found to have detectable troponin, admitted for non-STEMI, started on heparin drip. Cardiology consulted and patient underwent heart cath on 02/22/2024. He is awaiting transfer to [facility] for PCI. Nephrology is following for ESRD and dialysis management. ESRD. HD today. seen on HD today Anemia in CKD. Patient has a history of anemia of chronic disease, hemoglobin is 9.7 g/dL. 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 Continue Cinacalcet. Hypertension. Blood pressures acceptable.
[2024-02-25] MEDS: Gabapentin 300 MG Capsule PO (21:03)
[2024-02-25] MEDS: traZODone 50 MG Tablet PO (21:03)
[2024-02-25] MEDS: Atorvastatin Calcium 80 MG Tablet PO (21:03)
[2024-02-25 21:23] LABS: Bedside Glucose 126 mg/dL (74-106)
[2024-02-25] MEDS: HEPARIN/D5w 25,000 UNITS 25,000 UNITS/250 ML IV.SOLN. 15 UNITS CONT INF (22:52)
[2024-02-25 23:17] LABS: Partial Thromboplast Time 75.6 Seconds (24.1-36.2)
[2024-02-26 02:45] VITALS: BP 124/75; PULSE 68; RESP 18; TEMP 36.7; O2SAT 100
[2024-02-26 03:57] VITALS: BMI 43.5
[2024-02-26 05:50] LABS: Partial Thromboplast Time 70.6 Seconds (24.1-36.2)
[2024-02-26 06:00] VITALS: BP 122/79; PULSE 69; RESP 18; TEMP 36.8; O2SAT 93
[2024-02-26 06:39] LABS: Bedside Glucose 112 mg/dL (74-106)
--- NOTE | 2024-02-26 07:17 | NURSING ---
I spoke with [facility] transfer line and they stated pt is still on the wait list however they do not have a bed at this time. They could not give me a time frame for when they will have a bed available.
[2024-02-26] MEDS: Aspirin E.C. 81 MG Tablet PO (10:35)
[2024-02-26] MEDS: Ezetimibe 10 MG Tablet PO (10:35)
[2024-02-26] MEDS: Sertraline 50 MG Tablet PO (10:35)
[2024-02-26] MEDS: Clopidogrel Bisulfate 75 MG Tablet PO (10:35)
[2024-02-26] MEDS: amLODIPine 10 MG Tablet PO (10:35)
[2024-02-26] MEDS: Furosemide 80 MG Tablet PO (10:35)
[2024-02-26 12:00] VITALS: BP 106/66; PULSE 64; RESP 16; TEMP 36.3; O2SAT 95
[2024-02-26 12:01] LABS: Partial Thromboplast Time 57.3 Seconds (24.1-36.2)
[2024-02-26] MEDS: busPIRone 15 MG TABLET PO (12:03)
[2024-02-26] MEDS: Lansoprazole 15 MG Capsule.DR 30 MG PO (12:03)
[2024-02-26 12:34] LABS: Bedside Glucose 166 mg/dL (74-106)
[2024-02-26 12:35] VITALS: PULSE 66
[2024-02-26] MEDS: Metoprolol(XL)Succ 100 MG Tablet PO (12:35)
[2024-02-26] MEDS: Cinacalcet HCl 30 MG Tablet 120 MG PO (12:36)
--- NOTE | 2024-02-26 12:45 | PCM.PN.REN ---
Subjective Subjective no new complaints Objective Data Objective Data Vital Signs: Vital Signs Temp Pulse Resp BP Pulse Ox O2 Del Method O2 Flow Rate 98.2 F 66 18 122/79 H 93 Nasal Cannula 2 02/26/24 06:00 02/26/24 12:35 02/26/24 06:00 02/26/24 06:00 02/26/24 06:00 02/26/24 10:00 02/26/24 10:00 Oxygen Flow Rate (L/min) 2 Oxygen Delivery Method Nasal Cannula Weight: 133.3 kg Body Mass Index (BMI) 43.5 Intake & Output: Intake and Output for Last 24 Hours 02/24/24 02/25/24 02/26/24 23:59 23:59 23:59 Intake Total 1005.98 / 1005.98 603.27 / 603.27 394.29 / 394.29 Output Total 3690 / 3690 Balance 1005.98 / 1005.98 -3086.73 / -3086.73 394.29 / 394.29 Lab / Micro Data 02/25/24 02:16 02/25/24 02:16 Labs: Laboratory Results - last 24 hr 02/25/24 16:04: POC Glucose 94 02/25/24 16:50: APTT 61.1 H 02/25/24 21:02: POC Glucose 126 H 02/25/24 22:55: APTT 75.6 H 02/26/24 05:18: APTT 70.6 H 02/26/24 06:01: POC Glucose 112 H 02/26/24 11:45: APTT 57.3 H 02/26/24 12:10: POC Glucose 166 H Physical Exam Narrative Alert and oriented x 3, no apparent distress. Drowsy post heart cath procedure S1, S2, RRR Lung sounds clear anteriorly and posteriorly. No wheezes, rhonchi or rales Abdomen soft, nontender, rounded No edema Left forearm AV fistula positive thrill and bruit Assessment & Plan Assessment/Plan (1) ESRD on dialysis: (2) Hypertension: (3) NSTEMI, initial episode of care: PLAN: Plan Impression/Plan: The patient is a 53-year-old male with past medical history significant for ESRD [facility]ernal [facility] pain. Found to have detectable troponin, admitted for non-STEMI, started on heparin drip. Cardiology consulted and patient underwent heart cath on 02/22/2024. He is awaiting transfer to [facility] for PCI. Nephrology is following for ESRD and dialysis management. ESRD. HD MWF schedule Anemia in CKD. Patient has a history of anemia of chronic disease, hemoglobin is 9.7 g/dL. 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 Continue Cinacalcet. Hypertension. Blood pressures acceptable. waiting for bed at [facility]
--- NOTE | 2024-02-26 13:03 | CHAPLAIN ---
Type of Pastoral Visit _x__ Initial Visit ___ Follow-up Visit ___ On-call Visit ___ General Patient Visit ___ Spiritual Assessment ___ Family Conference ___ Bereavement ___ Rapid Response ___ Code Blue ___ Other (describe below) Pastoral Care Referral From _x__ Patient ___ Family ___ Nurse ___ Physician ___ Pbx Teacher ___ Upper Tier ___ Other (describe below) Sacrament/Intervention _x__ Active listening ___ Anointing ___ Latter Day ___ Bereavement ___ Communion _x__ Olivia exploration ___ ___ Life review _x__ Prayer ___ Reconciliation ___ Sacrament of Sick _x__ Supportive presence ___ Wedding ___ Other (describe below) Pastoral Comments patient acknowledges that he is anxious to get the transfer needed to [facility] to complete his treatment and have improvement; pt admits to some loneliness and anxious thoughts about getting 'this done'; pt welcomes presence and time to talk; pt welcomes spiritual care and acknowledges that a goal is to find a congregation and start going there if I get through this process ; pt is affirmed and a prayer
--- NOTE | 2024-02-26 14:38 | CASEMGMT ---
Patient has a Healthcare Power of Academic Support Assistant on file at [facility]. Patient's Healthcare Power of Academic Support Assistant is his . Kacy HATHAWAY
--- NOTE | 2024-02-26 15:29 | PCM.PN.HOSP ---
Reason for Visit Reason for Visit: Diagnoses Essential (primary) hypertension (02/21/24) Non-ST elevation (NSTEMI) myocardial infarction (02/21/24) Atherosclerotic heart disease of [place] coronary artery without angina pectoris (02/21/24) Cardiomyopathy, unspecified (02/21/24) End stage renal disease (02/21/24) Dependence on renal dialysis (02/21/24) Subjective Subjective Patient was seen and examined today, family expressed frustration that [facility] did not have a bed, I talked with the transfer line and they stated that the hospital was full and that they could not give me an expected bedtime. I asked the patient's if she had any objections to the patient going to [facility], initially she said yes and then she got back with nursing and said no and when I called her to discuss this she said a friend of the family got word from some other friend that [facility] was not a good place to go, I talked with the patient's about [facility] and told her that I felt it would be a good choice for the patient to go there and [facility] stated to me on the phone that they felt they were able to perform the intervention there. Patient's then changed her mind and said it was okay for the patient to go to [facility]. [facility] is excepted the patient but there is no out of bed available at this time. Objective Data Objective Data Vital Signs: Vital Signs Temp Pulse Resp BP Pulse Ox O2 Del Method O2 Flow Rate 98.2 F 66 18 122/79 H 93 Nasal Cannula 2 02/26/24 06:00 02/26/24 12:35 02/26/24 06:00 02/26/24 06:00 02/26/24 06:00 02/26/24 10:00 02/26/24 10:00 Oxygen Flow Rate (L/min) 2 Oxygen Delivery Method Nasal Cannula Weight: 133.3 kg Body Mass Index (BMI) 43.5 Intake & Output: Intake and Output for Last 24 Hours 02/24/24 02/25/24 02/26/24 23:59 23:59 23:59 Intake Total 1005.98 / 1005.98 603.27 / 603.27 394.29 / 394.29 Output Total 3690 / 3690 Balance 1005.98 / 1005.98 -3086.73 / -3086.73 394.29 / 394.29 Lab / Micro Data 02/25/24 02:16 02/25/24 02:16 Labs: Laboratory Results - last 24 hr 02/25/24 16:04: POC Glucose 94 02/25/24 16:50: APTT 61.1 H 02/25/24 21:02: POC Glucose 126 H 02/25/24 22:55: APTT 75.6 H 02/26/24 05:18: APTT 70.6 H 02/26/24 06:01: POC Glucose 112 H 02/26/24 11:45: APTT 57.3 H 02/26/24 12:10: POC Glucose 166 H Physical Exam Narrative alert, oriented x3 and no apparent distress Constitutional Narrative: Patient is morbidly obese General Appearance: cooperative, well kempt and well developed Orientation / Consciousness: awake, oriented to person, oriented to place and oriented to time HEENT normocephalic, head/scalp atraumatic and moist oral mucous membranes Eyes PERRL, EOMs intact bilaterally and conjunctivae normal Neck supple, no JVD, thyroid normal and no carotid bruits General: trachea midline Resp normal respiratory effort, no retractions, no use of accessory muscles and clear to auscultation bilaterally Auscultation: Negative for rales, rhonchi or wheezes Cardio regular rate, regular rhythm, S1 normal heart sound, S2 normal heart sound, no murmurs, no rub and no gallops GI normal to inspection, nondistended, normoactive bowel sounds, soft to palpation, non-tender and non-distended Extremity no clubbing, cyanosis or edema Skin no rashes or lesions noted General Skin Exam: no breakdown Neuro oriented x3, CN's II-XII intact bilaterally, no focal motor deficits and no sensory deficits noted Sensorium / Orientation: awake and alert Speech: speech normal Psych affect normal Assessment & Plan Assessment/Plan (1) Coronary artery disease: (2) NSTEMI, initial episode of care: PLAN: Plan 1. Non-STEMI with evidence of obstructive coronary artery disease on recent heart catheterization-we are awaiting bed assignment at [facility] presently, again they have accepted the patient, patient is currently on a heparin drip. #2 end-stage renal disease requiring dialysis-patient will be dialyzed today #3 ischemic cardiomyopathy-complicates care, management, recovery, and prognosis #4 essential hypertension-continue with present medications #5 morbid obesity-complicates care, management, recovery, and prognosis Total clinical time spent by myself addressing the patient's medical issues, reviewing all of his data, and collaborating with patient's care team: 35 minutes Charges/Coding Visit Charges Inpatient E&M: 99666 Subs Hosp L2
[2024-02-26 17:09] LABS: Bedside Glucose 131 mg/dL (74-106)
--- NOTE | 2024-02-26 17:21 | DS.PCM_ITS ---
Providers Date of Admission: 02/21/24 Date of Discharge: 02/26/24 Primary Care Physician: Dr. Norris Mcqueen MD Consultations 02/21/24 17:51 Consult: Cardiology Routine Consulting Provider: Александр Nevarez Reason for Consult: Chest Pain/nstemi EMERGENT Consult: No Notified: Yes Date Notified: 02/21/24 Time Notified: 17:27 Method of Notification: ED Physician Initiated Consult: Nephrology Routine Consulting Provider: Jade Lamar Reason for Consult: esrd on HD MWF EMERGENT Consult: No Notified: Yes Date Notified: 02/21/24 Time Notified: 18:25 Method of Notification: Text Reason For Visit: ELEVATED TROPONIN Diagnosis Discharge Diagnosis (1) Coronary artery disease: Status: Acute Code(s): I25.10 - Atherosclerotic heart disease of [place] coronary artery without angina pectoris (2) NSTEMI, initial episode of care: Status: Acute Code(s): I21.4 - Non-ST elevation (NSTEMI) myocardial infarction Plan 1. Non-STEMI with evidence of obstructive coronary artery disease on recent heart catheterization-we are awaiting bed assignment at [facility] presently, again they have accepted the patient, patient is currently on a heparin drip. #2 end-stage renal disease requiring dialysis-patient will be dialyzed today #3 ischemic cardiomyopathy-complicates care, management, recovery, and prognosis #4 essential hypertension-continue with present medications #5 morbid obesity-complicates care, management, recovery, and prognosis Total clinical time spent by myself addressing the patient's medical issues, reviewing all of his data, and collaborating with patient's care team: 35 minutes Medications at Discharge Home Medications blood-glucose meter (FreeStyle Burnside Lite kit) #1 ea 12/22/19 lancets 28 gauge (FreeStyle Lancets) #100 ea 12/22/19 pen needle, diabetic 32 gauge x 5/32 (BD Ultra-Fine China Pen Needle) #400 ea 12/22/19 albuterol sulfate 90 mcg/actuation aerosol inhaler 2 puff inhalation Q6H PRN Shortness Of Breath Or Wheezing 07/26/21 atorvastatin 80 mg tablet 80 mg PO QHS CHOLESTEROL 07/26/21 ezetimibe 10 mg tablet 10 mg PO DAILY HIGH CHOLESTEROL 07/26/21 losartan 50 mg tablet 50 mg PO DAILY BLOOD PRESSURE 07/26/21 sucroferric oxyhydroxide 500 mg chewable tablet (Velphoro) 1,500 mg PO TID KIDNEY HEALTH 02/20/22 insulin aspart U-100 100 unit/mL (3 mL) subcutaneous pen (Novolog FlexPen U-100 Insulin aspart) 15 unit subcut .COMPLEX BLOOD SUGAR 01/22/23 lanthanum 1,000 mg chewable tablet 3,000 mg PO TIDCM for kidneys 01/22/23 sertraline 50 mg tablet 50 mg PO DAILY ANTI DEPRESSANT 01/22/23 trazodone 50 mg tablet 50 mg PO QHS SLEEP 01/22/23 vitamin B complex-vitamin C-folic acid 0.8 mg tablet (Leonela-Herbie) 1 tab PO DAILY VITAMIN 01/22/23 clopidogrel 75 mg tablet 75 mg PO DAILY HEART #90 tabs 02/13/23 dulaglutide 0.75 mg/0.5 mL subcutaneous pen injector (Trulicity) 0.75 mg subcut QWEEK diabetes 04/10/23 amlodipine 10 mg tablet 10 mg PO DAILY . #30 tabs 04/11/23 cinacalcet 60 mg tablet 120 mg PO DAILY . 05/04/23 gabapentin 300 mg capsule 300 mg PO QHS PAIN 05/04/23 nitroglycerin 0.4 mg sublingual tablet 0.4 mg buccal Q5M PRN chest pain 05/04/23 cholecalciferol (vitamin D3) 1,250 mcg (50,000 unit) capsule 50,000 unit PO QWEEK SUPPLEMENT 06/07/23 fluticasone propionate 50 mcg/actuation nasal spray,suspension 2 spray intranasal DAILY . #18.2 mL 06/07/23 nifedipine 60 mg tablet,extended release 60 mg PO DAILY . 06/07/23 ondansetron 4 mg disintegrating tablet 4 mg PO Q8H PRN PRN Nausea #10 tabs 10/17/23 aspirin 81 mg tablet,delayed release 81 mg PO DAILY HEART 02/21/24 buspirone 15 mg tablet 15 mg PO BID . 02/21/24 furosemide 80 mg tablet 80 mg PO DAILY . 02/21/24 glimepiride 4 mg tablet 4 mg PO BID DM 02/21/24 insulin degludec 100 unit/mL (3 mL) subcutaneous pen (Tresiba FlexTouch U-100 insulin) 40 unit subcut Q24H DM 02/21/24 lansoprazole 30 mg capsule,delayed release 30 mg PO BID GERD 02/21/24 metoprolol succinate 100 mg tablet,extended release 24 hr 100 mg PO BID HTN 02/21/24 Hospital Course Operations None Procedures Cardiac catheterization Summary of Care Provided Minutes Spent on Discharge: 32 Hospital Course: This 63-year-old black male was seen in the emergency room at [facility] with a chief complaint of abnormal EKG which had been performed in his physician's office. It was noted that there were EKG changes in lead II, patient had a previous history of stenting of the LAD in 2022 here and in December 2023 he was admitted to [facility] and underwent a cardiac catheterization there and stent placement. Patient has a chronic dialysis patient. Evaluation in the emergency room included a chest x-ray which showed no acute process, EKG demonstrated some ST depression in lead II and minimally in lead III with T wave inversions which were new. Patient was found to have a troponin of 7302, requested transfer to [facility] where the patient been seen recently, patient was excepted for transfer and the patient and it was asked that the patient be placed on a heparin drip. Patient waited in the ER for period of time but there was no timeline regarding a bed assignment and he ultimately was admitted to [facility], he was seen in consultation by cardiology and nephrology, he underwent a cardiac catheterization which showed occlusive disease at the proximal circumflex, this was felt to be in an area which was too difficult to intervene here, patient remained in the hospital and underwent dialysis. After several days, patient's family expressed frustration that the patient could not be transferred to [place] and I could not get an idea from them when a bed would be available. Finally the patient's family () agreed to the patient being transferred to [facility] for further care at [facility] in [place] agreed to accept the patient and felt that they could intervene. On 02/26/2024, patient was seen and examined: On examination he appeared in good health and spirits. Vital signs as documented. Skin warm and dry and without overt rashes. Neck without JVD, neck was supple, trachea midline, thyroid was normal. Lungs clear bilaterally, normal air movement was noted. Heart exam notable for regular rhythm, normal sounds and absence of murmurs, rubs or gallops. Abdomen unremarkable and without evidence of organomegaly, masses, or abdominal aortic enlargement. Bowel sounds are present, abdomen is not distended. Extremities nonedematous, no cyanosis was noted, no clubbing was noted. Neuro: Cranial nerves II through XII are grossly intact, no focal motor deficits were noted, sensation to light touch and pinprick intact, motor exam 5/5 throughout. Psych: Patient is alert and oriented x3, he does not appear anxious or depressed, he does not appear agitated. Patient appears stable for discharge to [facility] for further care on 02/26/2024. Weight / BMI Weight Weight: 133.3 kg Body Mass Index (BMI) 43.5 ABG / Lab / Microbiology Data 02/25/24 02:16 02/25/24 02:16 Laboratory: Laboratory Results - last 24 hr 02/25/24 16:50: APTT 61.1 H 02/25/24 21:02: POC Glucose 126 H 02/25/24 22:55: APTT 75.6 H 02/26/24 05:18: APTT 70.6 H 02/26/24 06:01: POC Glucose 112 H 02/26/24 11:45: APTT 57.3 H 02/26/24 12:10: POC Glucose 166 H 02/26/24 16:52: POC Glucose 131 H Meaningful Use Info Meaningful Use Meaningful Use Diagnoses (Choose all that apply): None applicable Ischemic Stroke Statin Dosing Therapy Reference: STATIN DOSE THERAPY REFERENCE: * Patients > 75 years receive moderate or high dose statin therapy. * Patients 75 years or YOUNGER should receive HIGH intensity statin dose unless contraindicated. You will be required to document reason for non-treatment if statin daily dose does not meet guidelines. HIGH DOSE STATIN THERAPY DAILY Atorvastatin > than or = to 40 mg Rosuvastatin > than or = to 20 mg Amlodipine + Atorvastatin > than or = to 2.5/40 mg Ezetimibe + Simvastatin 10/80 mg Simvastatin 80mg Discharge Plan Admission Admit Date/Time: 02/21/24 17:18 Attending Provider: Harsh Rubin Primary Care Provider: Norris Mcqueen Consulting Providers: Александр Nevarez; Jade Lamar; Chaparrita Vale; Eric Golden Discharge Orders/Prescriptions Prescriptions: No Action (DME) blood-glucose meter [FreeStyle Burnside Lite] Kit See Rx Instructions .ROUTE .MEDSUPPLY Qty: 1 0RF Rx Instructions: As directed (DME) pen needle, diabetic [BD Ultra-Fine China Pen Needle] 32 gauge x 5/32 needle See Rx Instructions .ROUTE .MEDSUPPLY Qty: 400 1RF Rx Instructions: 4 times daily (DME) lancets [FreeStyle Lancets] 28 gauge misc See Rx Instructions .ROUTE .MEDSUPPLY Qty: 100 5RF Rx Instructions: As directed losartan 50 mg tablet 50 mg PO DAILY Patient Comments: UNSURE IF STILL TAKING atorvastatin 80 mg tablet 80 mg PO QHS Patient Comments: PT STATES HAS BEEN TAKING IN AM ezetimibe 10 mg tablet 10 mg PO DAILY albuterol sulfate 90 mcg/actuation HFA aerosol inhaler 2 puff inhalation Q6H PRN (Reason: Shortness Of Breath Or Wheezing) clopidogrel 75 mg tablet 75 mg PO DAILY Qty: 90 3RF cholecalciferol (vitamin D3) 1,250 mcg (50,000 unit) capsule 50,000 unit PO QWEEK Patient Comments: take 1 capsule by mouth ONE TIME A WEEK takes it on Tuesdays nifedipine 60 mg tablet extended release 60 mg PO DAILY Patient Comments: UNSURE IF STILL TAKING fluticasone propionate 50 mcg/actuation spray,suspension 2 spray intranasal DAILY Qty: 18.2 3RF Rx Instructions: administer into each nostril Velphoro 500 mg tablet,chewable 1,500 mg PO TID Patient Comments: CHEW & SWALLOW 3 TABLETS THREE TIMES A DAY WITH MEALS Trulicity 0.75 mg/0.5 mL pen injector 0.75 mg SUBCUT QWEEK Patient Comments: Inject 0.75 mg subcutaneously one time a week. Inject dose once per week. Discard Pen After Rx Instructions: pt unsure of dosage amount amlodipine 10 mg Tablet 10 mg PO DAILY Qty: 30 2RF Leonela-Herbie 0.8 mg tablet 1 tab PO DAILY trazodone 50 mg tablet 50 mg PO QHS sertraline 50 mg tablet 50 mg PO DAILY lanthanum 1,000 mg tablet,chewable 3,000 mg PO TIDCM insulin aspart U-100 [Novolog FlexPen U-100 Insulin] 100 unit/mL (3 mL) insulin pen 15 unit SC .COMPLEX Rx Instructions: 15 units subcutaneously TID CM cinacalcet 60 mg tablet 120 mg PO DAILY Patient Comments: TAKE 2 TABLETS BY MOUTH DAILY gabapentin 300 mg capsule 300 mg PO QHS Patient Comments: Take 1 capsule by mouth daily at bedtime nitroglycerin 0.4 mg tablet, sublingual 0.4 mg buccal Q5M PRN (Reason: chest pain) Patient Comments: D ondansetron 4 mg tablet,disintegrating 4 mg PO Q8H PRN PRN (Reason: Nausea) Qty: 10 0RF metoprolol succinate 100 mg tablet extended release 24 hr 100 mg PO BID aspirin 81 mg tablet,delayed release (DR/EC) 81 mg PO DAILY furosemide 80 mg tablet 80 mg PO DAILY glimepiride 4 mg tablet 4 mg PO BID lansoprazole 30 mg capsule,delayed release(DR/EC) 30 mg PO BID buspirone 15 mg tablet 15 mg PO BID insulin degludec [Tresiba FlexTouch U-100] 100 unit/mL (3 mL) insulin pen 40 unit subcut Q24H Referrals / Follow Up: Norris Mcqueen MD [Primary Care Provider] - Disposition Disposition (needs filled in before D/C Order can be placed): Acute Care Hospital Charges/Coding Visit Charges Inpatient E&M: 68325 Disch Hosp >30min
[2024-02-26] MEDS: SEVELAMER CARBONATE 800 MG TABLET 1600 MG PO (17:33)
[2024-02-26] MEDS: HEPARIN/D5w 25,000 UNITS 25,000 UNITS/250 ML IV.SOLN. 13 UNITS CONT INF (18:34)
[2024-02-26 19:02] LABS: Partial Thromboplast Time 56.4 Seconds (24.1-36.2)
[2024-02-26 19:40] VITALS: BP 137/86; PULSE 69; RESP 18; TEMP 36.6; O2SAT 95
[2024-02-26 20:30] VITALS: BP 137/86; PULSE 69; RESP 18; TEMP 36.6; O2SAT 95
== END 2024-02-26 20:15 | disposition short-term general hospital (02) | DRG 280 ==
LOC: ED 16:53 → MS3 17:01 → PCU 17:36
PROVIDERS: Internal Medicine; Admitting Provider Internal Medicine; Emergency Provider Emergency Medicine; PCP Family Medicine; Visit Provider Internal Medicine
DX: T82.855A Stenosis of coronary artery stent, initial encounter (principal); I21.4 Non-ST elevation (NSTEMI) myocardial infarction; N18.6 End stage renal disease; I13.2 Hypertensive heart and chronic kidney disease with heart failure and with stage 5 chronic kidney disease, or end stage renal disease; Z68.41 Body mass index [BMI] 40.0-44.9, adult; I42.9 Cardiomyopathy, unspecified; I50.42 Chronic combined systolic (congestive) and diastolic (congestive) heart failure; D63.1 Anemia in chronic kidney disease; E11.22 Type 2 diabetes mellitus with diabetic chronic kidney disease; J44.9 Chronic obstructive pulmonary disease, unspecified; I48.0 Paroxysmal atrial fibrillation; E66.01 Morbid (severe) obesity due to excess calories; G47.33 Obstructive sleep apnea (adult) (pediatric); E78.00 Pure hypercholesterolemia, unspecified; Z79.4 Long term (current) use of insulin; E11.42 Type 2 diabetes mellitus with diabetic polyneuropathy; I25.10 Atherosclerotic heart disease of native coronary artery without angina pectoris; K21.9 Gastro-esophageal reflux disease without esophagitis; Z99.2 Dependence on renal dialysis; I25.5 Ischemic cardiomyopathy; I25.2 Old myocardial infarction; E66.813 Obesity, class 3; Z79.84 Long term (current) use of oral hypoglycemic drugs; Z79.85 Long-term (current) use of injectable non-insulin antidiabetic drugs; Z79.82 Long term (current) use of aspirin; Z79.02 Long term (current) use of antithrombotics/antiplatelets; Z86.16 Personal history of COVID-19; Z95.5 Presence of coronary angioplasty implant and graft; Y71.2 Prosthetic and other implants, materials and accessory cardiovascular devices associated with adverse incidents
CPT/HCPCS: 36415; 71045; 80048; 82962; 84484; 85025; 85610; 85730; 90937; 93005; 93454; 99152; 99153; 99285; J7030; Q9967; A4216; C1769; C1894; G0257; J3490

== ENCOUNTER 2024-03-11 20:11 | Emergency (ER) | payer MEDICARE, OTHER, SELFPAY ==
[2024-03-11] VITALS (17 sets, daily range): BP systolic 139–174; BP diastolic 77–107; PULSE 116–125; RESP 16–24; TEMP 36.9; O2SAT 96–100; BMI 37.5
[2024-03-11 20:53] LABS: Absolute Lymphocyte Count 0.73 X10^3/uL (0.83-4.51); Absolute Neutrophil Count 7.2 X10^3/uL (2.0-7.7); Basophil# 0.05 X10^3/uL; Basophil% 0.5 % (0-1); Eosinophil# 0.34 X10^3/uL; Eosinophils% 3.7 % (0-5); Hematocrit 33.4 % (40-54); Lymphocyte # 0.73 X10^3/ul (0.83-4.51); Mean Corp Hgb Conc 32.9 g/dL (32-36); Mean Corpuscular Hgb 28.4 pg (27.0-32.0); Mean Corpuscular Volume 86.1 fL (80-94); Mean Platelet Vol. 8.9 fl (6.2-12.0); Monocyte# 0.77 X10^3/uL; Monocyte% 8.4 % (0-10); NRBC Flagged by Analyzer 0 % (0-5); Neutrophil # 7.24 X10^3/uL (2.7-7.7); Neutrophil % 79.1 % (47-70); Platelet Count 239 K/mm3 (150-450); RBC Distribution Width CV 18.6 % (11.6-14.6); RBC Distribution Width SD 57.8 fl (35.1-43.9); Red Blood Count 3.88 M/mm3 (4.6-6.2); White Blood Count 9.2 K/mm3 (4.4-11.0)
[2024-03-11 21:24] LABS: Anion Gap 9 (5-15); BUN 38 mg/dL (7-18); BUN/Creat Ratio 4.3 RATIO (10-20); Calcium,Total 8.6 mg/dL (8.5-10.1); Chloride 94 mmol/L (98-107); Creatinine, Serum 8.74 mg/dL (0.70-1.30); EST Glomerular Filtration Rate 7 mL/min (>60); Est Glom Filt Rate - Afr Amer 8 mL/min (>60); Estimated Creatinine Clearance 12.25 ml/min; Glucose 201 mg/dL (74-106); Potassium 4.9 mmol/L (3.5-5.1); Sodium Level 135 mmol/L (136-145); Troponin-I HS 112 pg/mL (3.0-78.0); Troponin-I HS (w/2H Reflex) 112 pg/mL (3.0-78.0)
[2024-03-11] MEDS: Morphine 4 MG/ML Syringe IV (21:45)
[2024-03-11 21:48] LABS: Lipase 34 U/L (13-75)
[2024-03-11 22:51] LABS: Reflex Troponin-HS? (from REC) Y
[2024-03-11] MEDS: Mag Hydrox/Al Hydrox/Simeth 30 ML UDC PO (22:54)
[2024-03-11 23:18] LABS: AST(SGOT) 18 U/L (15-37); Alanine Aminotransfer ALT/SGPT 31 U/L (16-61); Albumin, Serum 3.6 g/dL (3.2-5.0); Alkaline Phosphatase 116 U/L (45-117); Bilirubin, Direct 0.23 mg/dL (0.00-0.30); Globulin 4.6 g/dL (2.2-4.2); Protein, Total 8.2 g/dL (6.4-8.2)
[2024-03-11 23:24] LABS: Troponin-I HS 111 pg/mL (3.0-78.0)
[2024-03-12] VITALS (8 sets, daily range): BP systolic 101–199; BP diastolic 61–86; PULSE 115–122; RESP 13–25; TEMP 36.9; O2SAT 93–98
[2024-03-12] MEDS: Ondansetron ODT 4 MG Tablet PO (03:07)
== END 2024-03-12 03:08 | disposition home or self-care (01) ==
PROVIDERS: Emergency Provider Emergency Medicine; PCP Family Medicine; Visit Provider Emergency Medicine
DX: R07.9 Chest pain, unspecified (principal); I13.2 Hypertensive heart and chronic kidney disease with heart failure and with stage 5 chronic kidney disease, or end stage renal disease; N18.6 End stage renal disease; I50.42 Chronic combined systolic (congestive) and diastolic (congestive) heart failure; J44.9 Chronic obstructive pulmonary disease, unspecified; I48.0 Paroxysmal atrial fibrillation; I42.9 Cardiomyopathy, unspecified; E11.22 Type 2 diabetes mellitus with diabetic chronic kidney disease; Z79.4 Long term (current) use of insulin; E11.42 Type 2 diabetes mellitus with diabetic polyneuropathy; M54.6 Pain in thoracic spine; I25.10 Atherosclerotic heart disease of native coronary artery without angina pectoris; E78.00 Pure hypercholesterolemia, unspecified; Z79.82 Long term (current) use of aspirin; Z79.02 Long term (current) use of antithrombotics/antiplatelets; Z79.899 Other long term (current) drug therapy
CPT/HCPCS: 71045; 71275; 80048; 80076; 83690; 84484; 85025; 93005; 96374; 99283; Q9967; A4216

== ENCOUNTER → 2024-03-20 | Outpatient (CLI) | payer OTHER, MEDICARE, SELFPAY ==
[2024-03-20 09:41] VITALS: BMI 44.6
[2024-03-20 09:47] VITALS: BP 92/62; PULSE 75; O2SAT 93
[2024-03-20 10:17] VITALS: BP 92/62; BMI 44.6
== END | disposition home or self-care (01) ==
PROVIDERS: PCP Family Medicine; Referring Provider Internal Medicine Cardiovascular Disease; Visit Provider Internal Medicine Cardiovascular Disease
DX: I21.4 Non-ST elevation (NSTEMI) myocardial infarction (principal)

== ENCOUNTER 2024-03-24 13:59 | Outpatient (RCR) | payer OTHER, MEDICARE, SELFPAY ==
[2024-03-20 10:17] VITALS: BMI 44.6
== END 2024-03-29 23:59 ==
LOC: CR 13:59
PROVIDERS: PCP Family Medicine; Referring Provider Internal Medicine Cardiovascular Disease; Visit Provider Internal Medicine Cardiovascular Disease
DX: I21.4 Non-ST elevation (NSTEMI) myocardial infarction (principal)
CPT/HCPCS: 93798

== ENCOUNTER 2024-03-29 01:30 | Emergency (ER) | payer OTHER, MEDICARE, SELFPAY ==
[2024-03-20 10:17] VITALS: BMI 44.6
[2024-03-29] VITALS (10 sets, daily range): BP systolic 119–193; BP diastolic 78–119; PULSE 117–147; RESP 13–24; TEMP 36.3–37.3; O2SAT 90–100; BMI 42.1
--- NOTE | 2024-03-29 01:31 | EKG12_ITS ---
Test Reason : CP Blood Pressure : */* mmHG Vent. Rate : 144 BPM Atrial Rate : 144 BPM P-R Int : 100 ms QRS Dur : 102 ms QT Int : 354 ms P-R-T Axes : 52 -22 88 degrees QTcB Int : 548 ms Critical Test Result: High HR Sinus tachycardia with short VA with Fusion complexes /PVC's Nonspecific ST and T wave abnormality Abnormal ECG Confirmed by Storm Arita ([id number]), testing director MADYSON YOST ([id number]) on 03/31/2024 11:31:29 AM Referred By: ALMA DELIA Confirmed By: Storm Arita
--- NOTE | 2024-03-29 01:32 | ED.VIS.CHEST ---
HPI History of Present Illness Chief Complaint: Chest Pain [facility] Medical History Paroxysmal atrial fibrillation Cardiomyopathy NSTEMI, initial episode of care Kidney disease Congestive heart failure (CHF) Anxiety Atrial fibrillation Chest pain Non-ST elevation [place] (NSTEMI) Atrial flutter Dialysis patient CPAP (continuous positive airway pressure) dependence Pneumonia due to COVID-19 virus Myocardial infarct VERÓNICA (obstructive sleep apnea) Arteriosclerotic cardiovascular disease Dyslipidemia Elevated troponin ESRD on dialysis Wears glasses Wears partial dentures Insulin dependent diabetes mellitus Diabetes High cholesterol Non-smoker COPD (chronic obstructive pulmonary disease) Sleep apnea History of stress test History of echocardiogram Leg cramps Hypertension Cardiology follow-up encounter History of CHF (congestive heart failure) Fistula Hypotension Degenerative disc disease, cervical Diabetes mellitus, type II, insulin dependent Diabetic polyneuropathy (04/2017) GERD (gastroesophageal reflux disease) Chronic kidney disease with end stage renal failure on dialysis Non-ischemic cardiomyopathy Essential (primary) hypertension Syncope (07/2018) Problem with dialysis access Anemia of chronic renal failure, stage 4 (severe) Demand ischemia Morbid obesity Systolic and diastolic CHF, acute Elevated troponin Home Medications ?Medication ?Instructions ?Recorded ?Last Taken ?Type blood-glucose meter (FreeStyle #1 ea 12/22/19 Unknown Rx [place] Lite kit) lancets 28 gauge (FreeStyle #100 ea 12/22/19 Unknown Rx Lancets) pen needle, diabetic 32 gauge x #400 ea 12/22/19 Unknown Rx 5/32 (BD Ultra-Fine [place] Pen Needle) albuterol sulfate 90 mcg/actuation 2 puff inhalation Q6H PRN 07/26/21 01/21/23 History aerosol inhaler Shortness Of Breath Or Wheezing atorvastatin 80 mg tablet 80 mg PO QHS CHOLESTEROL 07/26/21 02/21/24 History ezetimibe 10 mg tablet 10 mg PO DAILY HIGH CHOLESTEROL 07/26/21 02/21/24 History losartan 50 mg tablet 50 mg PO DAILY BLOOD PRESSURE 07/26/21 10/08/23 History sucroferric oxyhydroxide 500 mg 1,500 mg PO TID KIDNEY HEALTH 02/20/22 02/21/24 History chewable tablet (Velphoro) insulin aspart U-100 100 unit/mL 15 unit subcut .COMPLEX BLOOD SUGAR 01/22/23 02/21/24 History (3 mL) subcutaneous pen (Novolog FlexPen U-100 Insulin aspart) lanthanum 1,000 mg chewable tablet 3,000 mg PO TIDCM for kidneys 01/22/23 02/21/24 History sertraline 50 mg tablet 50 mg PO DAILY ANTI DEPRESSANT 01/22/23 02/21/24 History trazodone 50 mg tablet 50 mg PO QHS SLEEP 01/22/23 02/20/24 History vitamin B complex-vitamin C-folic 1 tab PO DAILY VITAMIN 01/22/23 02/21/24 History acid 0.8 mg tablet (Leonela-Herbie) clopidogrel 75 mg tablet 75 mg PO DAILY HEART #90 tabs 02/13/23 02/21/24 Rx dulaglutide 0.75 mg/0.5 mL 0.75 mg subcut QWEEK diabetes 04/10/23 02/16/24 History subcutaneous pen injector (Trulicity) amlodipine 10 mg tablet 10 mg PO DAILY . #30 tabs 04/11/23 02/21/24 Rx cinacalcet 60 mg tablet 120 mg PO DAILY . 05/04/23 02/21/24 History gabapentin 300 mg capsule 300 mg PO QHS PAIN 05/04/23 02/20/24 History nitroglycerin 0.4 mg sublingual 0.4 mg buccal Q5M PRN chest pain 05/04/23 Unknown History tablet cholecalciferol (vitamin D3) 1,250 50,000 unit PO QWEEK SUPPLEMENT 06/07/23 02/21/24 History mcg (50,000 unit) capsule fluticasone propionate 50 2 spray intranasal DAILY . #18.2 mL 06/07/23 Unknown Rx mcg/actuation nasal spray,suspension nifedipine 60 mg tablet,extended 60 mg PO DAILY . 06/07/23 10/08/23 History release ondansetron 4 mg disintegrating 4 mg PO Q8H PRN PRN Nausea #10 tabs 10/17/23 Unknown Rx tablet aspirin 81 mg tablet,delayed 81 mg PO DAILY HEART 02/21/24 02/21/24 History release buspirone 15 mg tablet 15 mg PO BID . 02/21/24 02/21/24 History glimepiride 4 mg tablet 4 mg PO BID DM 02/21/24 02/21/24 History insulin degludec 100 unit/mL (3 40 unit subcut Q24H DM 02/21/24 02/21/24 History mL) subcutaneous pen (Tresiba FlexTouch U-100 insulin) lansoprazole 30 mg capsule,delayed 30 mg PO BID GERD 02/21/24 02/21/24 History release metoprolol succinate 100 mg 100 mg PO BID HTN 02/21/24 02/21/24 History tablet,extended release 24 hr Allergy/AdvReac Type Severity Reaction Status Date / Time liraglutide (From Victoza) Allergy Unknown unknown Verified 03/29/24 01:31 NSAIDS (Non-Steroidal AdvReac Severe Renal Verified 03/29/24 01:31 Anti-Inflamma failure BLANCA Inhibitors AdvReac Intermediate cough Verified 03/29/24 01:31 Family History Mother Hypertension Grandmother Aneurysm Other NSTEMI, initial episode of care Stented coronary artery Surgical History Stented coronary artery Hx of cardiac catheterization (~01/23/23) History of angioplasty of peripheral vessel (07/2021) Presence of surgically created arteriovenous shunt for hemodialysis (07/2017) Social History household members: spouse housing: house Smoking Status: Never smoker alcohol intake: never substance use type: does not use EXAM Physical Exam Const Vital Signs: 03/29/24 01:30 03/29/24 01:30 03/29/24 01:34 Temperature 99.1 F Temperature Source Oral Pulse Rate 147 H 142 H Respiratory Rate 13 24 H Respiratory Effort Short of Breath Blood Pressure 193/119 H 193/119 H Blood Pressure Mean 143 143 Pulse Ox 90 93 Oxygen Delivery Method Room Air 03/29/24 01:37 03/29/24 01:46 03/29/24 02:01 Temperature Temperature Source Pulse Rate 146 H 143 H Respiratory Rate Respiratory Effort Blood Pressure 167/104 H 145/78 H Blood Pressure Mean Pulse Ox 91 Oxygen Delivery Method Room Air 03/29/24 02:09 03/29/24 02:30 03/29/24 04:00 Temperature Temperature Source Pulse Rate 136 H 122 H 117 H Respiratory Rate 19 H 16 Respiratory Effort Blood Pressure 119/90 H Blood Pressure Mean Pulse Ox 99 100 Oxygen Delivery Method Room Air Room Air 03/29/24 04:18 Temperature Temperature Source Pulse Rate 117 H Respiratory Rate Respiratory Effort Blood Pressure 131/81 H Blood Pressure Mean 97 Pulse Ox Oxygen Delivery Method MDM MDM MDM Narrative Medical decision making narrative: HISTORY OF PRESENT ILLNESS: 53-year-old male presents with chest pain. History of ESRD, presents acute onset of chest pain. He also endorses philip mitten abdominal pain and back pain. The pain is not ripping or tearing. It is not associated with syncope. Notes the pain is sharp/pressure. It is not exertional. It is not associated shortness of breath. Notes recent chills but no cough or fever. Notes compliance with dialysis, blood thinners and all other medications including metoprolol. Notes his last dialysis session was this morning. Notes complete the entire dialysis session. Denies any falls or trauma. Notes this began after he started eating pizza. Also notes some epigastric abdominal pain and back pain. Patient denies sudden onset of pain, no tearing sensation, no migratory symptoms, no new numbness, weakness or loss of sensation. Patient denies family history or personal history of Connective tissue disorders (Marfan's Syndrome, Jamilah Danlos etc). The patient denies recent surgery in the last 4 weeks or immobilization in the last 3 days, denies previous diagnosis of DVT or PE, hemoptysis, unilateral leg swelling or malignancy with treatment the last 6 months or palliative. No estrogen use noted. REVIEW OF SYSTEMS: Pertinent positives: Chest pain Pertinent negatives: Shortness of breath, fever, cough PHYSICAL EXAM: Nursing triage notes reviewed, Vital signs reviewed Constitutional: please see mdm HENT: MMM Eyes: Pupils equal round and reactive to light, Extraocular muscles intact Neck: No stridor, no JVD, full neck ROM Lungs: Clear to auscultation, No wheezing or rales. No increased work of breathing, no conversational dyspnea, no accessory muscle use, no nasal flaring. No respiratory distress noted Heart: Fast irregular rate, No murmurs, No rubs and No gallops, 2+ distal pulses (radial, femoral, posterior tibial) in all extremities Abdomen: Soft, th negative Kang sign, rigidity, rebound or guarding, no obvious peritoneal signs, no palpable pulsatile abdominal masses, no auscultated abdominal bruit : No CVAT Extremities: No edema, left upper extremity fistula with palpable thrill Neuro: No new focal neurological deficits, cranial nerves II through XII intact, 5/5 strength in all present extremities. Intact sensation to light touch in all present extremities, 2+ reflexes bilateral patella tendons. Skin: No rash or lesions noted MEDICAL DECISION MAKING: Chief Complaint: Chest pain External records reviewed: Reviewed prior ED visit January 2024 and was patient was found to have an NSTEMI and transferred to [facility] Factors affecting care: As per HPI Social determinants of health: none History obtained from others: significant other Consults: none [facility] Narrative: Patient was initially, afebrile, hypertensive with blood pressure 193/119 tachycardic with a rate of 142, tachypneic at a rate of 24, saturating 93% on room air. I considered the following differential diagnosis: ACS, arrhythmia, anemia, electrolyte disturbance, volume overload, PE, dissection, pneumonia I obtained a broad lab and imaging workup to further elucidate etiology of the patient's complaints. Given various vital sign abnormalities including hypertension and tachycardia as well as EKG which showed A-fib versus a flutter. I chose to treat the patient's blood pressure with as needed sublingual nitro, as needed metoprolol pushes. Also gave morphine to control pain. ALL IMAGES (IF OBTAINED) HAVE BEEN PERSONALLY REVIEWED AND INTERPRETED BY MYSELF. Initial EKG was consistent with A-fib/a flutter with RVR, frequent PVCs, left axis deviation, PVCs, no obvious STEMI, prolonged QT interval Repeat EKG showed sinus tachycardia rate 140, left axis deviation, prolonged QT interval, no STEMI CBC without leukocytosis suggestive of systemic inflammation, noted baseline anemia (likely of chronic disease), no thrombocytopenia chest Chest x-ray was reviewed and interpreted personally myself shows baseline cardiomegaly, No change in mediastinal width, no obvious focal consolidation is new from prior, no sign of volume overload Lipase is wnl indicating no pancreatic inflammation. LFTs evidence of significant PAD of biliary obstruction within normal bilirubin, baseline alk phos, no elevation in liver enzymes BMP without evidence of significant electrolyte abnormalities, no anion gap, no acute kidney injury. Without significant electrolyte abnormalities, there is no elevation anion gap or sign of metabolic acidosis, there is noted end-stage renal disease with a creatinine is downtrending from prior studies Initial high-sensitivity troponin is elevated at 327 consistent with myocardial ischemia, is uptrending from the most recent study in which he was 111 Delta troponin remained elevated at 338 consistent with myocardial ischemia. CT of the chest and pelvis shows no evidence of dissection, no PE I suspect patient symptoms related to hypertensive emergency and demand ischemia. Upon reevaluation patient's blood pressure improved to 131/81 and heart rate improved to 117. The patient had no chest pain and felt completely asymptomatic on my reevaluation. Given his complicated past medical history including end-stage renal disease, CAD, CHF, A-fib evidence of myocardial ischemia I offered the patient admission to the hospital. Patient was alert and orient x 3 understood risk and benefits of admission versus discharge and chose to be discharged. He stated last time he want to be transferred to [facility] but this never happened. He stated since he feels better and knows he can return anytime he does not want to stay at this time. I implored the patient given concern for damage to his heart, need for urgent dialysis given contrast load etc. that he should stay in the hospital however he stated he preferred to go home. He promised follow-up with his dialysis appointment on Sunday, follow-up with his primary care physician and shucker at his next fill appointment as well. Strict return precautions were discussed. The patient and/or family, caregivers express understanding. The patient and/or family, caregivers agrees with the plan. Shared decision making: I will have a discussion with the patient and or visitors regarding risk/benefits of further testing or admission. They will be made aware of of the risk/benefits inherent in this decision they will be given the opportunity to voice understanding. Total critical care time today provided was at least 0 minutes. This excludes separately billable procedures. Critical care time (if documented) is secondary to the patient having high probability of clinically significant/life threatening deterioration in the patient's condition which required my urgent intervention. Impression: 1. Chest pain 2. Tachycardia 3. NSTEMI 4. History of end-stage renal disease Dispo: Discharge home This note was generated with iHydroRun dictation software. It may contain incorrect words, spelling, and punctuation that were not noted in review of the chart prior to signing. Lab Data Labs: Laboratory Results - last 24 hr 03/29/24 03/29/24 01:40 03:53 WBC 6.4 RBC 3.74 L Hgb 10.6 L Hct 32.1 L MCV 85.8 MCH 28.3 MCHC 33.0 RDW Std Deviation 58.1 H RDW Coeff of Kyle 18.7 H Plt Count 240 MPV 9.5 Immature Gran % (Auto) 0.300 Neut % (Auto) 72.7 H Lymph % (Auto) 12.4 L Cross % (Auto) 10.5 H Eos % (Auto) 3.3 Baso % (Auto) 0.8 Absolute Neuts (auto) 4.6 Absolute Lymphs (auto) 0.79 L Nucleated RBC % 0 Sodium 134 L Potassium 4.5 Chloride 93 L Carbon Dioxide 30.0 Anion Gap 11 BUN 34 H Creatinine 7.60 H* Estim Creat Clear Calc 14.98 Est GFR (MDRD) Af Amer 10 L Est GFR (MDRD) Non-Af 8 L BUN/Creatinine Ratio 4.5 L Glucose 249 H Calcium 8.5 Total Bilirubin 0.80 Direct Bilirubin 0.30 AST 33 ALT 39 Alkaline Phosphatase 132 H Troponin I High Sens 327 H* 338 H* Total Protein 8.0 Albumin 3.5 Globulin 4.5 H Lipase 27 Radiography Diagnostic Testing: Clinical Impression(s) from Imaging Studies Chest X-Ray 03/29/24 01:55 IMPRESSION: No evidence of cardiopulmonary disease. Electronically Signed: Norris Cherry DO at 2:19 EST , Chest/Abdomen/Pelvis CTA 03/29/24 02:00 IMPRESSION: 1. No thoracic or abdominal aortic aneurysm or dissection. 2. Mild diffuse groundglass pulmonary opacities which may represent mild edema. 3. Coronary artery calcifications. 4. No acute intra-abdominal abnormality. 5. Bilateral renal atrophy. 6. Multiple right upper lobe pulmonary nodules with the largest measuring 3 mm. Per Fleischner criteria, recommend follow-up CT of the chest in one year if the patient has increased risk factors for lung cancer. Otherwise no follow-up is recommended. Electronically Signed: Norris Cherry DO at 4:22 EST , Discharge Plan Triage Chief Complaint: Chest Pain ED Provider: Massimo Mancera Dx/Rx/DC Orders Clinical Impression: Chest pain, Acute non-ST elevation myocardial infarction (NSTEMI), Hypertensive emergency Instructions: ED Chronic Kidney Disease (CKD), ED High Blood Pressure Hypertension Prescriptions: No Action (DME) blood-glucose meter [FreeStyle [place] Lite] Kit See Rx Instructions .ROUTE .MEDSUPPLY Qty: 1 0RF Rx Instructions: As directed (DME) pen needle, diabetic [BD Ultra-Fine China Pen Needle] 32 gauge x 5/32 needle See Rx Instructions .ROUTE .MEDSUPPLY Qty: 400 1RF Rx Instructions: 4 times daily (DME) lancets [FreeStyle Lancets] 28 gauge misc See Rx Instructions .ROUTE .MEDSUPPLY Qty: 100 5RF Rx Instructions: As directed losartan 50 mg tablet 50 mg PO DAILY Patient Comments: UNSURE IF STILL TAKING atorvastatin 80 mg tablet 80 mg PO QHS Patient Comments: PT STATES HAS BEEN TAKING IN AM ezetimibe 10 mg tablet 10 mg PO DAILY albuterol sulfate 90 mcg/actuation HFA aerosol inhaler 2 puff inhalation Q6H PRN (Reason: Shortness Of Breath Or Wheezing) clopidogrel 75 mg tablet 75 mg PO DAILY Qty: 90 3RF cholecalciferol (vitamin D3) 1,250 mcg (50,000 unit) capsule 50,000 unit PO QWEEK Patient Comments: take 1 capsule by mouth ONE TIME A WEEK takes it on Tuesdays nifedipine 60 mg tablet extended release 60 mg PO DAILY Patient Comments: UNSURE IF STILL TAKING fluticasone propionate 50 mcg/actuation spray,suspension 2 spray intranasal DAILY Qty: 18.2 3RF Rx Instructions: administer into each nostril Velphoro 500 mg tablet,chewable 1,500 mg PO TID Patient Comments: CHEW & SWALLOW 3 TABLETS THREE TIMES A DAY WITH MEALS Trulicity 0.75 mg/0.5 mL pen injector 0.75 mg SUBCUT QWEEK Patient Comments: Inject 0.75 mg subcutaneously one time a week. Inject dose once per week. Discard Pen After Rx Instructions: pt unsure of dosage amount amlodipine 10 mg Tablet 10 mg PO DAILY Qty: 30 2RF Leonela-Herbie 0.8 mg tablet 1 tab PO DAILY trazodone 50 mg tablet 50 mg PO QHS sertraline 50 mg tablet 50 mg PO DAILY lanthanum 1,000 mg tablet,chewable 3,000 mg PO TIDCM insulin aspart U-100 [Novolog FlexPen U-100 Insulin] 100 unit/mL (3 mL) insulin pen 15 unit SC .COMPLEX Rx Instructions: 15 units subcutaneously TID CM cinacalcet 60 mg tablet 120 mg PO DAILY Patient Comments: TAKE 2 TABLETS BY MOUTH DAILY gabapentin 300 mg capsule 300 mg PO QHS Patient Comments: Take 1 capsule by mouth daily at bedtime nitroglycerin 0.4 mg tablet, sublingual 0.4 mg buccal Q5M PRN (Reason: chest pain) Patient Comments: D ondansetron 4 mg tablet,disintegrating 4 mg PO Q8H PRN PRN (Reason: Nausea) Qty: 10 0RF metoprolol succinate 100 mg tablet extended release 24 hr 100 mg PO BID aspirin 81 mg tablet,delayed release (DR/EC) 81 mg PO DAILY glimepiride 4 mg tablet 4 mg PO BID lansoprazole 30 mg capsule,delayed release(DR/EC) 30 mg PO BID buspirone 15 mg tablet 15 mg PO BID insulin degludec [Tresiba FlexTouch U-100] 100 unit/mL (3 mL) insulin pen 40 unit subcut Q24H Primary Care Provider: Norris Mcqueen Referrals: Norris Mcqueen MD [Primary Care Provider] - Print Language: Singaporean
[2024-03-29] MEDS: Nitroglycerin SL (ED/IMG/CATH) 0.4 MG TABLET SL ×3 (01:46→02:09)
[2024-03-29 01:47] LABS: Absolute Lymphocyte Count 0.79 X10^3/uL (0.83-4.51); Absolute Neutrophil Count 4.6 X10^3/uL (2.0-7.7); Basophil# 0.05 X10^3/uL; Basophil% 0.8 % (0-1); Eosinophil# 0.21 X10^3/uL; Eosinophils% 3.3 % (0-5); Hematocrit 32.1 % (40-54); Hemoglobin 10.6 g/dL (13.0-16.5); Lymphocyte # 0.79 X10^3/ul (0.83-4.51); Lymphocyte % 12.4 % (19-41); Mean Corpuscular Hgb 28.3 pg (27.0-32.0); Mean Corpuscular Volume 85.8 fL (80-94); Mean Platelet Vol. 9.5 fl (6.2-12.0); Monocyte# 0.67 X10^3/uL; Monocyte% 10.5 % (0-10); NRBC Flagged by Analyzer 0 % (0-5); Neutrophil # 4.64 X10^3/uL (2.7-7.7); Neutrophil % 72.7 % (47-70); Platelet Count 240 K/mm3 (150-450); RBC Distribution Width CV 18.7 % (11.6-14.6); RBC Distribution Width SD 58.1 fl (35.1-43.9); Red Blood Count 3.74 M/mm3 (4.6-6.2); White Blood Count 6.4 K/mm3 (4.4-11.0)
[2024-03-29] MEDS: Morphine 4 MG/ML Syringe IV (01:47)
--- NOTE | 2024-03-29 01:55 | RAD_ITS ---
INDICATION: chest pain EXAMINATION/TECHNIQUE: X-RAY - XR Chest 1 View COMPARISON: 03/11/2024. FINDINGS: LINES/DEVICES: None. LUNGS: No consolidation or evidence of an effusion. No evidence of edema or a pneumothorax. MEDIASTINUM AND CARDIOVASCULAR STRUCTURES: Cardiac silhouette is normal in size and contour. Mediastinum is unremarkable. BONES AND SOFT TISSUES: No acute abnormality. RAD/Chest 1 View (Portable) IMPRESSION: No evidence of cardiopulmonary disease. Electronically Signed: Norris Cherry DO at 2:19 EST ,
[2024-03-29] MEDS: Metoprolol Tartrate 5 MG/5 ML Vial IV ×3 (01:56→02:10)
--- NOTE | 2024-03-29 01:57 | EKG12_ITS ---
Test Reason : CP Blood Pressure : */* mmHG Vent. Rate : 140 BPM Atrial Rate : 140 BPM P-R Int : 82 ms QRS Dur : 104 ms QT Int : 356 ms P-R-T Axes : 39 -32 76 degrees QTcB Int : 543 ms Critical Test Result: High HR Sinus tachycardia with short TX Left axis deviation Left ventricular hypertrophy with repolarization abnormality ( R in aVL , Eduardo product ) Abnormal ECG Confirmed by Storm Arita ([id number]), editorial assistant MADYSON YOST ([id number]) on 03/31/2024 11:31:55 AM Referred By: ALMA DELIA Confirmed By: Storm Arita
--- NOTE | 2024-03-29 02:00 | CT_ITS ---
INDICATION: CP, abdominal pain r/o aortic dissection EXAMINATION: CTA Chest and CTA Abdomen and Pelvis W/ Contrast Injection (and W/O Contrast Images if performed) TECHNIQUE: Helically acquired axial images were obtained of the chest, abdomen, and pelvis with sagittal and coronal reconstructed images. Individualized dose optimization techniques were used for this CT. IV contrast dosage and agent: 100 mL of Isovue-370. Oral contrast: None. COMPARISON: 03/11/2024 CT chest and 10/17/2023 CT abdomen/pelvis. FINDINGS: ---Chest: LUNGS, PLEURA AND LARGE AIRWAYS: No consolidation or edema. Stable mild diffuse groundglass pulmonary opacities. Again seen are multiple right upper lobe pulmonary nodules with the largest measuring 3 mm. Calcified granuloma in the left upper lobe. No pleural effusion. No pneumothorax. THYROID: Unremarkable. HEART AND PERICARDIUM: Coronary artery calcifications are present. No pericardial effusion. MEDIASTINUM AND TITO: No mediastinal or hilar adenopathy. Esophagus is unremarkable. No hiatal hernia. VESSELS: No thoracic aortic aneurysm or dissection. No obvious central pulmonary embolism although this study was not performed with pulmonary embolism protocol. BONES: No acute abnormality. ---Abdomen/Pelvis: VESSELS: No abdominal aortic aneurysm or dissection. LIVER: No evidence of a mass. No intrahepatic or extrahepatic biliary duct dilation. GALLBLADDER: No calcified stones. No evidence of cholecystitis. PANCREAS: No focal solid or cystic mass. No evidence of pancreatitis. SPLEEN: Normal. ADRENAL GLANDS: Normal. KIDNEYS AND URETERS: No urinary tract stone. No hydronephrosis or hydroureter. No significant asymmetric perinephric stranding. Bilateral renal atrophy. Simple bilateral renal cysts with no follow-up recommended. URINARY BLADDER: Unremarkable. BOWEL: No evidence of diverticulosis or diverticulitis. Appendix appears normal. No evidence of bowel obstruction. REPRODUCTIVE ORGANS: No evidence of a pelvic mass. PERITONEUM: No intraabdominal free fluid or free air. LYMPH NODES: No pathologically enlarged mesenteric or retroperitoneal lymph nodes. ABDOMINAL WALL: No abdominal or pelvic wall hernia. BONES: No acute abnormality. CT/CTA Chst, Abd, Pel W and/or WO IMPRESSION: 1. No thoracic or abdominal aortic aneurysm or dissection. 2. Mild diffuse groundglass pulmonary opacities which may represent mild edema. 3. Coronary artery calcifications. 4. No acute intra-abdominal abnormality. 5. Bilateral renal atrophy. 6. Multiple right upper lobe pulmonary nodules with the largest measuring 3 mm. Per Fleischner criteria, recommend follow-up CT of the chest in one year if the patient has increased risk factors for lung cancer. Otherwise no follow-up is recommended. Electronically Signed: Norris Cherry DO at 4:22 EST ,
[2024-03-29 02:05] LABS: AST(SGOT) 33 U/L (15-37); Alanine Aminotransfer ALT/SGPT 39 U/L (16-61); Albumin, Serum 3.5 g/dL (3.2-5.0); Alkaline Phosphatase 132 U/L (45-117); Globulin 4.5 g/dL (2.2-4.2); Lipase 27 U/L (13-75)
[2024-03-29 02:09] LABS: Anion Gap 11 (5-15); BUN 34 mg/dL (7-18); BUN/Creat Ratio 4.5 RATIO (10-20); Calcium,Total 8.5 mg/dL (8.5-10.1); Chloride 93 mmol/L (98-107); EST Glomerular Filtration Rate 8 mL/min (>60); Est Glom Filt Rate - Afr Amer 10 mL/min (>60); Estimated Creatinine Clearance 14.98 ml/min; Glucose 249 mg/dL (74-106); Potassium 4.5 mmol/L (3.5-5.1); Sodium Level 134 mmol/L (136-145); Troponin-I HS (w/2H Reflex) 327 pg/mL (3.0-78.0)
[2024-03-29 03:44] LABS: Reflex Troponin-HS? (from REC) Y
[2024-03-29 04:22] LABS: Troponin-I HS 338 pg/mL (3.0-78.0)
== END 2024-03-29 04:51 | disposition home or self-care (01) ==
LOC: ED 02:31
PROVIDERS: Emergency Provider Emergency Medicine; PCP Family Medicine; Visit Provider Emergency Medicine
DX: I16.1 Hypertensive emergency (principal); I13.2 Hypertensive heart and chronic kidney disease with heart failure and with stage 5 chronic kidney disease, or end stage renal disease; N18.6 End stage renal disease; I50.42 Chronic combined systolic (congestive) and diastolic (congestive) heart failure; J44.9 Chronic obstructive pulmonary disease, unspecified; I48.0 Paroxysmal atrial fibrillation; I21.A1 Myocardial infarction type 2; I42.9 Cardiomyopathy, unspecified; E11.42 Type 2 diabetes mellitus with diabetic polyneuropathy; E11.22 Type 2 diabetes mellitus with diabetic chronic kidney disease; Z79.4 Long term (current) use of insulin; M54.9 Dorsalgia, unspecified; R68.83 Chills (without fever); Z99.2 Dependence on renal dialysis; E78.00 Pure hypercholesterolemia, unspecified; D63.1 Anemia in chronic kidney disease; I49.3 Ventricular premature depolarization; I25.10 Atherosclerotic heart disease of native coronary artery without angina pectoris; I25.2 Old myocardial infarction; G47.33 Obstructive sleep apnea (adult) (pediatric); K21.9 Gastro-esophageal reflux disease without esophagitis; Z79.02 Long term (current) use of antithrombotics/antiplatelets; Z79.82 Long term (current) use of aspirin; Z79.84 Long term (current) use of oral hypoglycemic drugs; Z79.85 Long-term (current) use of injectable non-insulin antidiabetic drugs; Z79.899 Other long term (current) drug therapy; Z95.5 Presence of coronary angioplasty implant and graft
CPT/HCPCS: 71045; 71275; 74174; 80048; 80076; 83690; 84484; 85025; 93005; 96374; 96375; 99284; Q9967; A4216

== ENCOUNTER 2024-03-31 04:41 | Outpatient (RCR) | payer OTHER, MEDICARE, SELFPAY ==
[2024-03-20 10:17] VITALS: BMI 44.6
--- NOTE | 2024-04-16 11:51 | PCM.CR.ITP ---
Nutrition - Initial Assessment Weight Mgt (Other Care) Height: 5 ft 9 in Weight:: 309 lb BMI: 45.6 Psychosocial - Initial Assess Target Goals Target Goals Referral to Behavioral Health PS - Interventions: Yes: Attend Stress Management Classes Nutrition Survey Nutrition Survey Instructions Scoring Instructions Exercise - 30-day Assessment Visit Date of Eval: 04/16/24 (Pt has not attended CR. Pt's start date was 03/24/24) Physician Prescribed Exercise Frequency: 3x/week for 12 weeks [36 sessions] Intensity: 60-80% of age predicted maximum heart rate reserve Duration: 30 - 45 minutes Current METSs:: 3 Target Heart Rate:: 100-125 EKG Type: ST Outcomes & Goals Goals:: Verbalizes understanding of THR, RPE & goal METS by session 6, Documents in home exercise log/reports 30 min aerobic 5 day/wk by DC, Demonstrates accurate pulse taking by DC and Other additional outcome/goals: see below Intervention & Plan Exercise Program Goals: Instruct on personal THR & RPE, Instruct on MET level & personal MET goal, Show patient to take own pulse /validate performance until accurate, Instruct on home exercise and Other additional plan/int 30-day Reassessments 30 day Reassessments:: Not Met Physical Activity Home Exercise Physical Activity - Home Exercise: Safe Exercise, Warm-up, Self-monitoring, Cool-Down, Home Exercise > 30 min Daily and Sitting Time <3 hours/daily Outcomes & Goals Outcomes/Goals: Demonstrates correct Warm-up/exercise Cool-Down (S3) if = 2.5 METs, Verbalizes symptoms of exercise intolerance by Session 3 (S3), Demonstrate safe equipment use (S3) & follows exercise prescrition (6) and Other: See below Intervention & Plan Plan/Intervention: Instruct warm-up & cool-down if exercising at > 2 METs, Instruct on symptoms of exercise intolerance & actions to take, Instruct & monitor on saf, Assess intial functional capacity & safety risk and Other See below 30-day Reassessments 30 day Reassessments:: Not Met Nutrition - 30-Day Assessment Visit Date of Eval: 04/16/24 (Pt has not started rehab.) Cholesterol/Lipids (Other Core Measures) Determine presence & major risk factors that modify LDL goal: Hypertension or hypertensive medication, Low HDL cholesterol <40 mg/dL*, Family history of premature CHD in Male < 55 years: female <65 yearsFa and Age men > 45 years; women >/= 55 years Outcomes/Goals: Pt IDs own risk factors & lifestyle modifications by Session 10, Verbalizes symptoms of angina & response by session 3., Pt independently manages and Other Additional Outcomes/Goals: Intervention/Plan: Advocate for lipid panel cholesterol medication if applicable, Instruct on personal lipid levels & lipid goals/NCEP guidelines, Instruct on cholesterol and Other additional plan/int Diabetes (Other Core Measures) Diabetes Type: Diagnosis Type II ICD-10 E11 Insulin dependent injection/pump?: Yes Non-Insulin Dependent?: Yes Do you monitor your blood sugar at home?: Yes Weight Mgt (Other Care) Height: 5 ft 9 in Weight:: 309 lb BMI: 45.6 Diagnosis Overweight/Obesity BMI> 30% ICD-10 E66: Yes Diagnosis High BMI/Morbid Obesity BMI> 35% ICD-10 Z68: Yes Outcomes/Goals: Pt sets, maintains & shows weight loss goal & trend during rehab and Other additional outcomes/goals Intervention/Plan: Instruct on ideal BMI & set weight loss goal w/patient, Assist pt to ID & incorporate diet changes for weight loss by S9, Refer to Structured Weight Loss program as appropriate, Encourage goal of using 250-300dcal per session for weight loss and Other additional plan/interventions 30 day Reassessments:: Not Met Healthy Eating Habits Will attend diet classes:: Yes Outcomes/Goals:: Consume diet rich in vegs,fruits,whole grain/high fiber,fish,lean meat, Limit sat/trans fats,cholesterol & added salts & sugars and Other additional outcome/goals: Intervention/Plan:: Assess current eating habits and Other Additional plan/interventions 30-day Reassessments:: Not Met Education Gave educational materials for:: Signs & symptoms of hypoglycemia, Signs & symptoms of hyperglycemia, Relate diabetes to coronary artery disease and Healthy eating Nutrition - 60-Day Assessment Weight Mgt (Other Care) Height: 5 ft 9 in Weight:: 309 lb BMI: 45.6 Core - 30-Day Assessment Visit Date of Eval: 04/16/24 (pt has not started rehab ) Medication Compliance Preventative Medication(s):: Aspirin, Clopidogrel/P2Y12 inhibit, Statin/lipid, Beta stefani and ARB (Angiotensi Rcap) H/O mental health issues: depression, anxiety, or addiction?: No Doesn?t believe in the benefits of treatment?: No Believes medications are unnecessary or harmful?: No Has a concern about medication side effects?: No Expresses concern over the cost of medications?: No Outcomes/Goals: Verbalizes medications,desired effect & common side effects @ DC, Pt self-reports following medication regimen, Keeps card in wallet w/medications listed by DC and Other additional outcome/goals: Interventions/plans: Instruct on medication effects & side effects, Review medication list w/patient every two weeks, Instruct importance of taking meds as ordered & assist problem solving and Other additional Tobacco Use Tobacco Use: Non-smoker Hypertension Hypertension Diagnosis:: Hypertension ICD-10 I10 Resting Blood Pressure:: 92/62 [employer] Hypertension Guidelines Outcomes/Goals: Able to verbalize/achieve optimal blood pressure <130/80, Incorporates diet changes & exercise for blood pressure control by DC and Other additional outcomes/goals Tobacco Cessation Referral Smoking Cessation Referral:: No Individual Education/Counseling:: No Education Schedule Given:: Yes Psychosocial - 30-Day Assess VIsit Date of Eval: 04/16/24 (pt has not started rehab) History of previous Mental disease:: No Target Goals Target Goals Psychosocial Test Tool Used:: [employer] QOL Cardiac and PHQ-9 Questionnaire phq-9 Severity Referral to Behavioral Health PS - Interventions: Yes: Attend Stress Management Classes Outcomes/Goals: See list Psychosocial Outcomes/Goals:: ID's personal stressors & 2 strategies to manage stress by discharge and Other Additional outcome/goals: Intervention/Plan: See List Interventions/Plan:: Assess stressors,coping strategies & signs of derpression on admission, Instruct/assist pt to develop coping & personal stress Mgt strategies, Refer to Behavioral Health if appropriate, Refer to Physician if appropriate, Instruct patient to recognize signs & symptoms of depression, Instruct patient to recog and Other additional plan/intervention 30-day Reassessments: 30 day Reassessments:: Not Met Psychosocial - 60-Day Assess Target Goals Target Goals Referral to Behavioral Health PS - Interventions: Yes: Attend Stress Management Classes Outcomes/Goals: See list Psychosocial Outcomes/Goals:: ID's personal stressors & 2 strategies to manage stress by discharge and Other Additional outcome/goals: Psychosocial - 90-Day Assess Target Goals Target Goals Referral to Behavioral Health PS - Interventions: Yes: Attend Stress Management Classes Psychosocial - Final Assessmen Target Goals Target Goals Referral to Behavioral Health PS - Interventions: Yes: Attend Stress Management Classes Nutrition - 90-Day Assessment Weight Mgt (Other Care) Height: 5 ft 9 in Weight:: 309 lb BMI: 45.6 Nutrition - Final Assessment Weight Mgt (Other Care) Height: 5 ft 9 in Weight:: 309 lb BMI: 45.6
[2024-04-16 11:58] VITALS: BP 92/62; BMI 45.6
== END 2024-04-29 23:59 ==
LOC: CR 04:41
PROVIDERS: PCP Family Medicine; Referring Provider Internal Medicine Cardiovascular Disease; Visit Provider Internal Medicine Cardiovascular Disease
DX: I21.4 Non-ST elevation (NSTEMI) myocardial infarction (principal)
CPT/HCPCS: 93798

== ENCOUNTER 2024-04-20 23:19 | Inpatient (IN) | payer OTHER, MEDICARE, SELFPAY ==
[2024-04-20 23:19] VITALS: BP 202/134; PULSE 150; RESP 28; TEMP 36.2; O2SAT 94; BMI 41.1
--- NOTE | 2024-04-20 23:38 | EKG12_ITS ---
Test Reason : CP Blood Pressure : */* mmHG Vent. Rate : 144 BPM Atrial Rate : 144 BPM P-R Int : 100 ms QRS Dur : 104 ms QT Int : 380 ms P-R-T Axes : 30 -25 82 degrees QTcB Int : 588 ms Critical Test Result: High HR atrial flutter with 2:block Left ventricular hypertrophy with repolarization abnormality ( R in aVL , Eduardo product ) Abnormal ECG Confirmed by GA WILLETT, RADHA ([id number]), editor managing newspaper JEF MATIAS ([id number]) on 04/21/2024 8:27:46 AM Referred By: TL Confirmed By: RADHA KOROMA MD
[2024-04-20] MEDS: Metoprolol Tartrate 5 MG/5 ML Vial IV ×2 (23:50→23:57)
[2024-04-20 23:52] LABS: Absolute Neutrophil Count 3.1 X10^3/uL (2.0-7.7); Basophil# 0.04 X10^3/uL; Basophil% 0.9 % (0-1); Eosinophil# 0.17 X10^3/uL; Eosinophils% 3.6 % (0-5); Hematocrit 32.6 % (40-54); Hemoglobin 10.6 g/dL (13.0-16.5); Mean Corp Hgb Conc 32.5 g/dL (32-36); Mean Corpuscular Hgb 28.3 pg (27.0-32.0); Mean Corpuscular Volume 86.9 fL (80-94); Mean Platelet Vol. 10.1 fl (6.2-12.0); Monocyte# 0.56 X10^3/uL; Monocyte% 11.9 % (0-10); NRBC Flagged by Analyzer 0 % (0-5); Neutrophil # 3.11 X10^3/uL (2.7-7.7); Neutrophil % 66.2 % (47-70); Platelet Count 225 K/mm3 (150-450); RBC Distribution Width CV 17.6 % (11.6-14.6); RBC Distribution Width SD 56.2 fl (35.1-43.9); Red Blood Count 3.75 M/mm3 (4.6-6.2); White Blood Count 4.7 K/mm3 (4.4-11.0)
--- NOTE | 2024-04-20 23:55 | RAD_ITS ---
STUDY: X-RAY CHEST REASON FOR EXAM: Male, 53 years old patient with chest pain. TECHNIQUE: Single AP portable view of the chest. COMPARISON: Chest radiograph dated March 29, 2024. FINDINGS: Cardiac monitoring leads are present. Right basilar markings are prominent. There is a chronic curvilinear opacity left lung base. The lungs are hyperexpanded. There is no demonstrated pleural abnormality. There is mild cardiac enlargement. Normal mediastinum and erick. There is prominence of the pulmonary hilar arteries with peripheral pulmonary vascular congestion. There is atherosclerotic calcification of the aortic arch with tortuosity. Normal visualized thoracic spine. Normal visualized ribs, clavicles, and shoulders. There is no demonstrated abnormality of the visualized soft tissue structures of the upper abdomen. RAD/Chest 1 View (Portable) IMPRESSION: Cardiomegaly and mild pulmonary vascular congestion. Electronically Signed: Annette Williamson MD at 0:40 EST ,
[2024-04-21] VITALS (13 sets, daily range): BP systolic 131–157; BP diastolic 71–103; PULSE 75–128; RESP 16–19; TEMP 36.2–36.4; O2SAT 93–99; BMI 41.3
[2024-04-21 00:12] LABS: Anion Gap 11 (5-15); BUN 29 mg/dL (7-18); BUN/Creat Ratio 4.8 RATIO (10-20); Calcium,Total 9.4 mg/dL (8.5-10.1); Chloride 95 mmol/L (98-107); EST Glomerular Filtration Rate 10 mL/min (>60); Est Glom Filt Rate - Afr Amer 12 mL/min (>60); Estimated Creatinine Clearance 18.41 ml/min; Glucose 182 mg/dL (74-106); International Normalized Ratio 1.1; Potassium 4.6 mmol/L (3.5-5.1); Prothrombin Time (Protime)PT. 14.3 SECONDS (11.7-14.9); Sodium Level 136 mmol/L (136-145); Troponin-I HS (w/2H Reflex) 92 pg/mL (3.0-78.0)
[2024-04-21 00:13] LABS: Partial Thromboplast Time 29.9 Seconds (24.1-36.2)
[2024-04-21] MEDS: Metoprolol Tartrate 5 MG/5 ML Vial IV (00:13)
--- NOTE | 2024-04-21 01:15 | ED.VIS.CHEST ---
HPI History of Present Illness Chief Complaint: Chest Pain Informant: patient Narrative Narrative: Left and right side chest aching 2 hours prior to arrival. No dyspnea no radicular symptoms no nausea or vomiting. History of coronary disease 3 stents last time 2 months ago by [facility] [place]. History of paroxysmal A-fib and flutter on Eliquis. EKG concerning for potential flutter he denies palpitations lightheaded symptoms or racing heart. Chronic cough. Dialysis Fridays still makes urine at least twice a day. Today being Sunday states he did have dialysis today. He took all his medications today including his Eliquis this evening. Prior Similar Symptoms: Yes PFSH [facility] Medical History Paroxysmal atrial fibrillation Cardiomyopathy NSTEMI, initial episode of care Kidney disease Congestive heart failure (CHF) Anxiety Atrial fibrillation Chest pain Non-ST elevation [place] (NSTEMI) Atrial flutter Dialysis patient CPAP (continuous positive airway pressure) dependence Pneumonia due to COVID-19 virus Myocardial infarct VERÓNICA (obstructive sleep apnea) Arteriosclerotic cardiovascular disease Dyslipidemia Elevated troponin ESRD on dialysis Wears glasses Wears partial dentures Insulin dependent diabetes mellitus Diabetes High cholesterol Non-smoker COPD (chronic obstructive pulmonary disease) Sleep apnea History of stress test History of echocardiogram Leg cramps Hypertension Cardiology follow-up encounter History of CHF (congestive heart failure) Fistula Hypotension Degenerative disc disease, cervical Diabetes mellitus, type II, insulin dependent Diabetic polyneuropathy (04/2017) GERD (gastroesophageal reflux disease) Chronic kidney disease with end stage renal failure on dialysis Non-ischemic cardiomyopathy Essential (primary) hypertension Syncope (07/2018) Problem with dialysis access Anemia of chronic renal failure, stage 4 (severe) Demand ischemia Morbid obesity Systolic and diastolic CHF, acute Elevated troponin Home Medications ?Medication ?Instructions ?Recorded ?Last Taken ?Type blood-glucose meter (FreeStyle #1 ea 12/22/19 Unknown Rx [place] Lite kit) lancets 28 gauge (FreeStyle #100 ea 12/22/19 Unknown Rx Lancets) pen needle, diabetic 32 gauge x #400 ea 12/22/19 Unknown Rx (BD Ultra-Fine [place] Pen Needle) albuterol sulfate 90 mcg/actuation 2 puff inhalation Q6H PRN 07/26/21 01/21/23 History aerosol inhaler Shortness Of Breath Or Wheezing atorvastatin 80 mg tablet 80 mg PO QHS CHOLESTEROL 07/26/21 02/21/24 History ezetimibe 10 mg tablet 10 mg PO DAILY HIGH CHOLESTEROL 07/26/21 02/21/24 History sucroferric oxyhydroxide 500 mg 1,500 mg PO TID KIDNEY HEALTH 02/20/22 02/21/24 History chewable tablet (Velphoro) insulin aspart U-100 100 unit/mL 15 unit subcut .COMPLEX BLOOD SUGAR 01/22/23 02/21/24 History (3 mL) subcutaneous pen (Novolog FlexPen U-100 Insulin aspart) lanthanum 1,000 mg chewable tablet 3,000 mg PO TIDCM for kidneys 01/22/23 02/21/24 History sertraline 50 mg tablet 50 mg PO DAILY ANTI DEPRESSANT 01/22/23 02/21/24 History trazodone 50 mg tablet 50 mg PO QHS SLEEP 01/22/23 02/20/24 History vitamin B complex-vitamin C-folic 1 tab PO DAILY VITAMIN 01/22/23 02/21/24 History acid 0.8 mg tablet (Leonela-Herbie) clopidogrel 75 mg tablet 75 mg PO DAILY HEART #90 tabs 02/13/23 02/21/24 Rx dulaglutide 0.75 mg/0.5 mL 0.75 mg subcut QWEEK diabetes 04/10/23 02/16/24 History subcutaneous pen injector (Trulicity) cinacalcet 60 mg tablet 120 mg PO DAILY . 05/04/23 02/21/24 History gabapentin 300 mg capsule 300 mg PO QHS PAIN 05/04/23 02/20/24 History nitroglycerin 0.4 mg sublingual 0.4 mg buccal Q5M PRN chest pain 05/04/23 Unknown History tablet cholecalciferol (vitamin D3) 1,250 50,000 unit PO QWEEK SUPPLEMENT 06/07/23 02/21/24 History mcg (50,000 unit) capsule nifedipine 60 mg tablet,extended 60 mg PO DAILY . 06/07/23 10/08/23 History release aspirin 81 mg tablet,delayed 81 mg PO DAILY HEART 02/21/24 02/21/24 History release buspirone 15 mg tablet 15 mg PO BID . 02/21/24 02/21/24 History insulin degludec 100 unit/mL (3 41 unit subcut QHS DM 02/21/24 02/21/24 History mL) subcutaneous pen (Tresiba FlexTouch U-100 insulin) lansoprazole 30 mg capsule,delayed 30 mg PO BID GERD 02/21/24 02/21/24 History release furosemide 40 mg tablet 40 mg PO DAILY 04/21/24 Unknown History metoprolol succinate 50 mg 50 mg PO BID 04/21/24 Unknown History tablet,extended release 24 hr sacubitril 49 mg-valsartan 51 mg 1 tab PO BID 04/21/24 Unknown History tablet (Entresto) ticagrelor 90 mg tablet (Brilinta) 90 mg PO BID 04/21/24 Unknown History Allergy/AdvReac Type Severity Reaction Status Date / Time liraglutide (From Victoza) Allergy Unknown unknown Verified 04/20/24 23:19 NSAIDS (Non-Steroidal AdvReac Severe Renal Verified 04/20/24 23:19 Anti-Inflamma failure BLANCA Inhibitors AdvReac Intermediate cough Verified 04/20/24 23:19 Family History Mother Hypertension Grandmother Aneurysm Other NSTEMI, initial episode of care Stented coronary artery Surgical History Stented coronary artery Hx of cardiac catheterization (~01/23/23) History of angioplasty of peripheral vessel (07/2021) Presence of surgically created arteriovenous shunt for hemodialysis (07/2017) Social History household members: spouse housing: house Smoking Status: Never smoker alcohol intake: never substance use type: does not use ROS ROS ED Constitutional Constitutional ED: Denies chills, fever(s) or sweats ENT ENT ED: Denies sore throat Cardiovascular Cardiovascular: Reports chest pain; Denies leg edema, palpitations or racing heartbeat Respiratory/Chest Respiratory/Chest: Reports cough; Denies dyspnea or dyspnea on exertion Gastrointestinal Gastrointestinal: Denies abdominal pain, diarrhea, nausea or vomiting Genitourinary Genitourinary ED: Denies dysuria, hematuria or urinary frequency Musculoskeletal Musculoskeletal: Denies back pain, extremity pain or neck pain Integumentary Denies rash or wounds Neurologic Neurologic: Denies headache(s), paresthesias or weakness EXAM Physical Exam Const Vital Signs: 04/20/24 23:19 04/20/24 23:22 04/21/24 00:14 Temperature 97.2 F L Temperature Source Temporal Pulse Rate 150 H Respiratory Rate 28 H Respiratory Effort Short of Breath Blood Pressure 202/134 H Blood Pressure Mean 156 Pulse Ox 94 Oxygen Delivery Method Room Air Room Air 04/21/24 00:14 04/21/24 00:33 04/21/24 01:00 Temperature Temperature Source Pulse Rate 128 H 84 89 Respiratory Rate 17 19 H 17 Respiratory Effort Blood Pressure 157/103 H 147/94 H 149/100 H Blood Pressure Mean 121 111 116 Pulse Ox 93 98 98 Oxygen Delivery Method Room Air Room Air Room Air 04/21/24 02:00 04/21/24 03:00 04/21/24 03:14 Temperature 97.6 F L Temperature Source Pulse Rate 84 83 89 Respiratory Rate 18 18 18 Respiratory Effort Blood Pressure 142/90 H 142/87 H 142/87 H Blood Pressure Mean 107 105 105 Pulse Ox 98 99 97 Oxygen Delivery Method Room Air Room Air Positive well nourished and well developed General Appearance ED: well developed and NAD HEENT Reports moist mucous membranes normocephalic and atraumatic Eyes General Eye ED: Yes normal appearance of both eyes Neck full ROM Chest Wall Chest: Negative for tenderness Resp normal respiratory effort and normal air movement Effort and Inspection: symmetric chest movement; Negative for respiratory distress Cardio regular rhythm and no murmurs Rate: tachycardic Peripheral Pulses: pulses 2+ throughout GI normal to inspection, nondistended, normoactive bowel sounds and non-tender Palpation: Negative for guarding or rebound tenderness present Extremity normal to inspection Extremity Narrative: Left forearm fistula positive thrill General Extremety ED: Negative for edema or tenderness General Extremity: Negative for edema Neuro oriented x3 and no sensory deficits noted Sensorium / Orientation: awake and alert Skin no rashes or lesions noted and no wounds MDM MDM MDM Narrative Medical decision making narrative: Interventions / MDM: Differential diagnosis: Atrial flutter, atypical chest pain, history of coronary disease, NSTEMI Diagnosis considered but do not suspect: N/A My EKG interpretation: Narrow complex tachycardia rate of [address] changes. Imaging independently reviewed and interpreted by myself: 1 view chest x-ray: Mild vascular congestion also read by radiology. External documents reviewed: Evaluation in ED and inpatient records. Apparently had a circumflex stent placed December 2022. He came in for A-fib and flutter with elevated troponin of 600 in April. There is concern more for type II strain. Continued medical treatment with Plavix at that time with Eliquis being started. He was seen here chest pain January 2024 troponin 6000 range. They requested transfer to [facility] however there is no bed availability with. He was kept here had a heart cath concerning for in-stent stenosis of the circumflex of 95%. He was transferred with recommended intervention. He return with chest pain symptoms early February troponin was in the 110 ranges. There is discussion with his cardiology team at [facility], they requested transfer for observations there. Patient came in the ED end of February with similar complaints today a flutter improved with medications his cardiac enzymes were in the 300 ranges. He declined admission. Reports today following up with cardiology service since then. Test considered but not ordered:N/A ED course: Patient nontoxic chest pain EKG narrow complex tachycardia with his a flutter history this is likely the case. With his chest pains cardiac workup initiated. He is given IV Lopressor 5 mg ordered x 3. 0055: Heart rate currently 85 blood pressure 140s systolic clinically feels better with lower heart rate. Initial troponin at 92. He was seen in the ED in the last month troponin 300 range. Creatinine 6.1 BUN 29 potassium 4.6. He is dialysis patient. Had dialysis today. Currently minimal symptoms. Will await delta troponin. I suspect symptoms are from his atrial flutter with type II strain. 0255: Repeat troponin doubled 181. He is symptom-free at this time. He does meet NSTEMI criteria. After reviewing records there was concern back in April possible type II strain however in January he ended up with in-stent stenosis. I discussed with him his transfer in February due to his recent stent he states he did have another heart cath that did not note any in-stent stenosis. He states from his last discharge troponin 300 range, they suspected type II strain. Secondary to delta troponin elevation I did recommend requiring admission for observations. He took his Eliquis at 6 PM yesterday. He took his aspirin and Plavix yesterday. They also requested transfer previously as he is established with [facility] currently. He will call his spouse to discuss transfer versus admission here. 0314: We discussed and patient spouse on the phone, they would like to be evaluated here this time. Currently symptom-free. I will speak with hospitalist for admission. 0330: I spoke with hospitalist Dr. Campbell for admission. Re-evaluation: stable Disposition discussed with patient/family/significant other: Patient Case discussed with consulting clinician: Hospitalist This note was generated with Ofelia Feliz dictation software. It may contain incorrect words, spelling, and punctuation that were not noted in checking the note before signing. Lab Data Attestation: I reviewed the patient's lab results. Labs: Laboratory Results - last 24 hr 04/20/24 04/21/24 23:35 01:50 WBC 4.7 RBC 3.75 L Hgb 10.6 L Hct 32.6 L MCV 86.9 MCH 28.3 MCHC 32.5 RDW Std Deviation 56.2 H RDW Coeff of Kyle 17.6 H Plt Count 225 MPV 10.1 Immature Gran % (Auto) 0.400 Neut % (Auto) 66.2 Lymph % (Auto) 17.0 L O'Brien % (Auto) 11.9 H Eos % (Auto) 3.6 Baso % (Auto) 0.9 Absolute Neuts (auto) 3.1 Absolute Lymphs (auto) 0.80 L Nucleated RBC % 0 PT 14.3 INR 1.1 APTT 29.9 Sodium 136 Potassium 4.6 Chloride 95 L Carbon Dioxide 30.0 Anion Gap 11 BUN 29 H Creatinine 6.10 H Estim Creat Clear Calc 18.41 Est GFR (MDRD) Af Amer 12 L Est GFR (MDRD) Non-Af 10 L BUN/Creatinine Ratio 4.8 L Glucose 182 H Calcium 9.4 Troponin I High Sens 92 H 181 H* Radiography Diagnostic Testing: Clinical Impression(s) from Imaging Studies Chest X-Ray 04/20/24 23:55 IMPRESSION: Cardiomegaly and mild pulmonary vascular congestion. Electronically Signed: Annette Williamson MD at 0:40 EST , Critical Care Time Critical Care Time: Yes Critical care time (excluding procedures): 30-74 minutes, Discussing w/Patient &/or Family/Crystal Report Developer, Discussing w/Consultants, Arranging Admission or Transfer, Performing Direct Patient Care at Bedside and - (35 minutes) Discharge Plan Triage Chief Complaint: Chest Pain ED Provider: Mor Ramos Dx/Rx/DC Orders Clinical Impression: Atrial flutter with rapid ventricular response, Chest pain, Arteriosclerotic cardiovascular disease, Non-ST elevation [place] (NSTEMI), End-stage renal disease on hemodialysis Prescriptions: No Action (DME) blood-glucose meter [FreeStyle [place] Lite] Kit See Rx Instructions .ROUTE .MEDSUPPLY Qty: 1 0RF Rx Instructions: As directed (DME) pen needle, diabetic [BD Ultra-Fine [place] Pen Needle] 32 gauge x 5/32 needle See Rx Instructions .ROUTE .MEDSUPPLY Qty: 400 1RF Rx Instructions: 4 times daily (DME) lancets [FreeStyle Lancets] 28 gauge misc See Rx Instructions .ROUTE .MEDSUPPLY Qty: 100 5RF Rx Instructions: As directed atorvastatin 80 mg tablet 80 mg PO QHS Patient Comments: PT STATES HAS BEEN TAKING IN AM ezetimibe 10 mg tablet 10 mg PO DAILY albuterol sulfate 90 mcg/actuation HFA aerosol inhaler 2 puff inhalation Q6H PRN (Reason: Shortness Of Breath Or Wheezing) clopidogrel 75 mg tablet 75 mg PO DAILY Qty: 90 3RF cholecalciferol (vitamin D3) 1,250 mcg (50,000 unit) capsule 50,000 unit PO QWEEK Patient Comments: take 1 capsule by mouth ONE TIME A WEEK takes it on Tuesdays nifedipine 60 mg tablet extended release 60 mg PO DAILY Velphoro 500 mg tablet,chewable 1,500 mg PO TID Patient Comments: CHEW & SWALLOW 3 TABLETS THREE TIMES A DAY WITH MEALS Trulicity 0.75 mg/0.5 mL pen injector 0.75 mg SUBCUT QWEEK Patient Comments: Inject 0.75 mg subcutaneously one time a week. Inject dose once per week. Discard Pen After Leonela-Herbie 0.8 mg tablet 1 tab PO DAILY trazodone 50 mg tablet 50 mg PO QHS sertraline 50 mg tablet 50 mg PO DAILY lanthanum 1,000 mg tablet,chewable 3,000 mg PO TIDCM insulin aspart U-100 [Novolog FlexPen U-100 Insulin] 100 unit/mL (3 mL) insulin pen 15 unit SC .COMPLEX Rx Instructions: 17 units subcutaneously TID CM; 8 units with snacks cinacalcet 60 mg tablet 120 mg PO DAILY Patient Comments: TAKE 2 TABLETS BY MOUTH DAILY gabapentin 300 mg capsule 300 mg PO QHS Patient Comments: Take 1 capsule by mouth daily at bedtime nitroglycerin 0.4 mg tablet, sublingual 0.4 mg buccal Q5M PRN (Reason: chest pain) aspirin 81 mg tablet,delayed release (DR/EC) 81 mg PO DAILY lansoprazole 30 mg capsule,delayed release(DR/EC) 30 mg PO BID buspirone 15 mg tablet 15 mg PO BID insulin degludec [Tresiba FlexTouch U-100] 100 unit/mL (3 mL) insulin pen 41 unit subcut QHS furosemide 40 mg tablet 40 mg PO DAILY metoprolol succinate 50 mg tablet extended release 24 hr 50 mg PO BID Brilinta 90 mg tablet 90 mg PO BID sacubitril-valsartan [Entresto] 49-51 mg tablet 1 tab PO BID Primary Care Provider: Norris Mcqueen Referrals: Norris Mcqueen MD [Primary Care Provider] - Print Language: Croatian Disposition Disposition: Acute Care Hospital [facility]
[2024-04-21 01:45] LABS: Reflex Troponin-HS? (from REC) Y
[2024-04-21 02:51] LABS: Troponin-I HS 181 pg/mL (3.0-78.0)
--- NOTE | 2024-04-21 05:17 | HP.PCM.HOS_ITS ---
HPI - General General Date of Admission: 04/21/24 HPI Narrative LISA MASTERSON, is a 53 M who presents to the hospital with chest pain in the setting of tachycardia. He does have a history of a flutter. He received multiple doses of metoprolol IV in the hospital which broke his flutter and when his heart rate returned to normal his chest pain resolved. He has had 2 heart caths in the last 3 months because of chest pain and ultimately non-STEMI where his troponin peaked to 7300 in January. He had a heart cath that demonstrated a lesion that was challenging to fix so he was transferred to a tertiary center. He had a stent placed and had another episode of chest pain in February and he was transferred back to that institution where a repeat cath did not demonstrate any in-stent stenosis. Chest pain is completely resolved but it was similar to the pain that he had back in January EKG is unremarkable troponin doubled from 92-1 81. He does have a history of end-stage renal disease which is likely causing some of the elevation in his troponin. [facility] Medical History Paroxysmal atrial fibrillation Cardiomyopathy NSTEMI, initial episode of care Kidney disease Congestive heart failure (CHF) Anxiety Atrial fibrillation Chest pain Non-ST elevation [place] (NSTEMI) Atrial flutter Dialysis patient CPAP (continuous positive airway pressure) dependence Pneumonia due to COVID-19 virus Myocardial infarct VERÓNICA (obstructive sleep apnea) Arteriosclerotic cardiovascular disease Dyslipidemia Elevated troponin ESRD on dialysis Wears glasses Wears partial dentures Insulin dependent diabetes mellitus Diabetes High cholesterol Non-smoker COPD (chronic obstructive pulmonary disease) Sleep apnea History of stress test History of echocardiogram Leg cramps Hypertension Cardiology follow-up encounter History of CHF (congestive heart failure) Fistula Hypotension Degenerative disc disease, cervical Diabetes mellitus, type II, insulin dependent Diabetic polyneuropathy (04/2017) GERD (gastroesophageal reflux disease) Chronic kidney disease with end stage renal failure on dialysis Non-ischemic cardiomyopathy Essential (primary) hypertension Syncope (07/2018) Problem with dialysis access Anemia of chronic renal failure, stage 4 (severe) Demand ischemia Morbid obesity Systolic and diastolic CHF, acute Elevated troponin Home Medications ?Medication ?Instructions ?Recorded ?Last Taken ?Type blood-glucose meter (FreeStyle #1 ea 12/22/19 Unknown Rx [place] Lite kit) lancets 28 gauge (FreeStyle #100 ea 12/22/19 Unknown Rx Lancets) pen needle, diabetic 32 gauge x #400 ea 12/22/19 Unknown Rx /32 (BD Ultra-Fine [place] Pen Needle) albuterol sulfate 90 mcg/actuation 2 puff inhalation Q6H PRN 07/26/21 01/21/23 History aerosol inhaler Shortness Of Breath Or Wheezing atorvastatin 80 mg tablet 80 mg PO QHS CHOLESTEROL 07/26/21 02/21/24 History ezetimibe 10 mg tablet 10 mg PO DAILY HIGH CHOLESTEROL 07/26/21 02/21/24 History sucroferric oxyhydroxide 500 mg 1,500 mg PO TID KIDNEY HEALTH 02/20/22 02/21/24 History chewable tablet (Velphoro) insulin aspart U-100 100 unit/mL 15 unit subcut .COMPLEX BLOOD SUGAR 01/22/23 02/21/24 History (3 mL) subcutaneous pen (Novolog FlexPen U-100 Insulin aspart) lanthanum 1,000 mg chewable tablet 3,000 mg PO TIDCM for kidneys 01/22/23 02/21/24 History sertraline 50 mg tablet 50 mg PO DAILY ANTI DEPRESSANT 01/22/23 02/21/24 History trazodone 50 mg tablet 50 mg PO QHS SLEEP 01/22/23 02/20/24 History vitamin B complex-vitamin C-folic 1 tab PO DAILY VITAMIN 01/22/23 02/21/24 History acid 0.8 mg tablet (Leonela-Herbie) dulaglutide 0.75 mg/0.5 mL 0.75 mg subcut QWEEK diabetes 04/10/23 02/16/24 History subcutaneous pen injector (Trulicity) cinacalcet 60 mg tablet 120 mg PO DAILY . 05/04/23 02/21/24 History gabapentin 300 mg capsule 300 mg PO QHS PAIN 05/04/23 02/20/24 History nitroglycerin 0.4 mg sublingual 0.4 mg buccal Q5M PRN chest pain 05/04/23 Unknown History tablet cholecalciferol (vitamin D3) 1,250 50,000 unit PO QWEEK SUPPLEMENT 06/07/23 02/21/24 History mcg (50,000 unit) capsule nifedipine 60 mg tablet,extended 60 mg PO DAILY . 06/07/23 10/08/23 History release aspirin 81 mg tablet,delayed 81 mg PO DAILY HEART 02/21/24 02/21/24 History release buspirone 15 mg tablet 15 mg PO BID . 02/21/24 02/21/24 History insulin degludec 100 unit/mL (3 41 unit subcut QHS DM 02/21/24 02/21/24 History mL) subcutaneous pen (Tresiba FlexTouch U-100 insulin) lansoprazole 30 mg capsule,delayed 30 mg PO BID GERD 02/21/24 02/21/24 History release furosemide 40 mg tablet 40 mg PO DAILY 04/21/24 Unknown History metoprolol succinate 50 mg 50 mg PO BID 04/21/24 Unknown History tablet,extended release 24 hr sacubitril 49 mg-valsartan 51 mg 1 tab PO BID 04/21/24 Unknown History tablet (Entresto) ticagrelor 90 mg tablet (Brilinta) 90 mg PO BID 04/21/24 Unknown History Allergy/AdvReac Type Severity Reaction Status Date / Time liraglutide (From Victoza) Allergy Unknown unknown Verified 04/20/24 23:19 NSAIDS (Non-Steroidal AdvReac Severe Renal Verified 04/20/24 23:19 Anti-Inflamma failure BLANCA Inhibitors AdvReac Intermediate cough Verified 04/20/24 23:19 Family History Mother Hypertension Grandmother Aneurysm Other NSTEMI, initial episode of care Stented coronary artery Surgical History Stented coronary artery Hx of cardiac catheterization (~01/23/23) History of angioplasty of peripheral vessel (07/2021) Presence of surgically created arteriovenous shunt for hemodialysis (07/2017) Social History household members: spouse housing: house Smoking Status: Never smoker alcohol intake: never substance use type: does not use ROS Constitutional Constitutional: Denies chills, fatigue, fever(s) or malaise Eyes Eyes: Denies blurry vision ENT HEENT: Denies headache(s) or nasal discharge Cardiovascular Cardiovascular: Reports chest pain; Denies dyspnea on exertion or syncope Respiratory/Chest Respiratory/Chest: Denies cough, shortness of breath at rest or shortness of breath with exertion Gastrointestinal Gastrointestinal: Denies constipation, diarrhea, nausea or vomiting Genitourinary Genitourinary: Denies dysuria Neurologic Neurologic: Denies focal weakness, numbness or tremor(s) Psychiatric Psychiatric: Denies anxiety or depression Vital Signs Vital Signs Vital Signs: 04/20/24 23:19 04/20/24 23:22 04/21/24 00:14 Temperature 97.2 F L Temperature Source Temporal Pulse Rate 150 H Respiratory Rate 28 H Respiratory Effort Short of Breath Blood Pressure 202/134 H Blood Pressure Mean 156 Blood Pressure Source Blood Pressure Position Blood Pressure Location Pulse Ox 94 Oxygen Delivery Method Room Air Room Air Oxygen Flow Rate (L/min) 04/21/24 00:14 04/21/24 00:33 04/21/24 01:00 Temperature Temperature Source Pulse Rate 128 H 84 89 Respiratory Rate 17 19 H 17 Respiratory Effort Blood Pressure 157/103 H 147/94 H 149/100 H Blood Pressure Mean 121 111 116 Blood Pressure Source Blood Pressure Position Blood Pressure Location Pulse Ox 93 98 98 Oxygen Delivery Method Room Air Room Air Room Air Oxygen Flow Rate (L/min) 04/21/24 02:00 04/21/24 03:00 04/21/24 03:14 Temperature 97.6 F L Temperature Source Pulse Rate 84 83 89 Respiratory Rate 18 18 18 Respiratory Effort Blood Pressure 142/90 H 142/87 H 142/87 H Blood Pressure Mean 107 105 105 Blood Pressure Source Blood Pressure Position Blood Pressure Location Pulse Ox 98 99 97 Oxygen Delivery Method Room Air Room Air Oxygen Flow Rate (L/min) 04/21/24 03:30 04/21/24 04:00 04/21/24 05:00 Temperature 97.1 F L Temperature Source Temporal Pulse Rate 83 77 Respiratory Rate 18 18 Respiratory Effort Blood Pressure 149/98 H 138/90 H Blood Pressure Mean 115 106 Blood Pressure Source Monitor Blood Pressure Position Semi-Fowlers Blood Pressure Location Right Arm Pulse Ox 98 97 99 Oxygen Delivery Method Room Air Nasal Cannula Nasal Cannula Oxygen Flow Rate (L/min) 2 2 2 Weight Weight: 280 lb 3.32 oz Body Mass Index (BMI) 41.3 Physical Exam Narrative General: Alert, Oriented x3, Cooperative, No apparent distress, morbidly obese HEENT: Atraumatic, PERRLA, EOMI, Normocephalic Oral: Moist Mucosa Neck: Supple, No JVD Lungs: Diminished, Normal air movement, No rhonchi, No wheeze, No rales Cardiovascular: Regular rate, Regular Rhythm, Normal S1, Normal S2, No murmurs Abdomen: Soft, Non Tender, Non-Distended, No Hepato-splenomegaly Extremities: No edema, Capillary Refill Less than 3 Seconds Skin: No rashes, No breakdown Musculoskeletal: No Tenderness to Palpation of Joints or Extremities Neurological: No focal neurological deficits, Motor Exam 5/5 strength throughout, Sensory exam intact to light touch and pain Psych/Mental Status: Normal Affect, Appropriate Results Lab / Micro Data 04/20/24 23:35 04/20/24 23:35 Labs: Laboratory Results - last 24 hr 04/20/24 23:35: WBC 4.7, RBC 3.75 L, Hgb 10.6 L, Hct 32.6 L, MCV 86.9, MCH 28.3, MCHC 32.5, RDW Std Deviation 56.2 H, RDW Coeff of Kyle 17.6 H, Plt Count 225, MPV 10.1, Immature Gran % (Auto) 0.400, Neut % (Auto) 66.2, Lymph % (Auto) 17.0 L, M [place] % (Auto) 11.9 H, Eos % (Auto) 3.6, Baso % (Auto) 0.9, Absolute Neuts (auto) 3.1, Absolute Lymphs (auto) 0.80 L, Nucleated RBC % 0, PT 14.3, INR 1.1, APTT 29.9, Sodium 136, Potassium 4.6, Chloride 95 L, Carbon Dioxide 30.0, Anion Gap 11, BUN 29 H, Creatinine 6.10 H, Estim Creat Clear Calc 18.41, Est GFR (MDRD) Af Amer 12 L, Est GFR (MDRD) Non-Af 10 L, BUN/Creatinine Ratio 4.8 L, Glucose 182 H , Calcium 9.4, Troponin I High Sens 92 H 04/21/24 01:50: Troponin I High Sens 181 H* Imaging Radiology Impression Chest X-Ray 04/20/24 23:55 IMPRESSION: Cardiomegaly and mild pulmonary vascular congestion. Electronically Signed: Annette Williamson MD at 0:40 EST Reading Location ID and State: [facility] / [place] , Service support , Assessment & Plan Assessment/Plan (1) Non-ST elevation [place] (NSTEMI): (2) Atrial flutter with rapid ventricular response: PLAN: Plan 1. Non-STEMI type II secondary to demand ischemia from atrial flutter with RVR/chronic systolic CHF/CAD status post stent/paroxysmal a flutter ? The RVR is resolved prior to my evaluation his chest pain is also resolved. Heart rate is back to normal however troponin is up to 181 ? Will obtain serial troponins ? Continue with his home beta-stefani to control his heart rate ? He is not on any anticoagulation given the type II nature of this event we will hold off on any anticoagulation at this time ? He had an echo on 10/08/2023 with an EF of 45% and moderately dilated right ventricle ? Continue with his Brilinta and his aspirin ? Continue with his daily Lasix ? Continue with Entresto as well as his metoprolol ? Will monitor make adjustments as necessary 2. DM2 with end-stage renal disease on dialysis ? Continue with his home medications ? Sliding scale insulin ? Accu-Cheks ACHS ? Will monitor make adjustments as necessary 3. GERD ? Stable ? Continue with PPI 4. Anxiety/depression ? Stable ? Continue with his home medications DVT: Ambulation 75 minutes was spent on direct patient care, including documentation as well as chart review and collaboration with colleagues Charges/Coding Visit Charges Inpatient E&M: 17386 Init Hosp L3
[2024-04-21 05:39] LABS: Absolute Neutrophil Count 2.9 X10^3/uL (2.0-7.7); Basophil# 0.03 X10^3/uL; Basophil% 0.7 % (0-1); Eosinophils% 4.5 % (0-5); Hematocrit 29.9 % (40-54); Hemoglobin 9.6 g/dL (13.0-16.5); Lymphocyte % 17.8 % (19-41); Mean Corp Hgb Conc 32.1 g/dL (32-36); Mean Corpuscular Hgb 28.4 pg (27.0-32.0); Mean Corpuscular Volume 88.5 fL (80-94); Mean Platelet Vol. 9.7 fl (6.2-12.0); Monocyte# 0.57 X10^3/uL; Monocyte% 12.7 % (0-10); NRBC Flagged by Analyzer 0 % (0-5); Neutrophil # 2.87 X10^3/uL (2.7-7.7); Neutrophil % 63.9 % (47-70); Platelet Count 173 K/mm3 (150-450); RBC Distribution Width CV 17.4 % (11.6-14.6); RBC Distribution Width SD 56.2 fl (35.1-43.9); Red Blood Count 3.38 M/mm3 (4.6-6.2); White Blood Count 4.5 K/mm3 (4.4-11.0)
--- NOTE | 2024-04-21 05:43 | EKG12_ITS ---
Test Reason : NSTEMI Blood Pressure : */* mmHG Vent. Rate : 81 BPM Atrial Rate : 81 BPM P-R Int : 150 ms QRS Dur : 100 ms QT Int : 438 ms P-R-T Axes : 54 -11 -11 degrees QTcB Int : 508 ms Normal sinus rhythm Possible Left atrial enlargement Incomplete right bundle branch block Minimal voltage criteria for LVH, may be normal variant ( Eduardo product ) Nonspecific ST and T wave abnormality Prolonged QT Abnormal ECG When compared with ECG of 20-Apr-2024 23:25, MANUAL COMPARISON REQUIRED DATA IS UNCONFIRMED Confirmed by GA WILLETT, RADHA ([id number]), field map editor JEF MATIAS ([id number]) on 04/21/2024 8:31:02 AM Referred By: Confirmed By: RADHA KOROMA MD
[2024-04-21 06:26] LABS: Anion Gap 9 (5-15); BUN 30 mg/dL (7-18); BUN/Creat Ratio 4.5 RATIO (10-20); Calcium,Total 9.2 mg/dL (8.5-10.1); Chloride 97 mmol/L (98-107); Creatinine, Serum 6.65 mg/dL (0.70-1.30); EST Glomerular Filtration Rate 9 mL/min (>60); Est Glom Filt Rate - Afr Amer 11 mL/min (>60); Estimated Creatinine Clearance 16.95 ml/min; Glucose 148 mg/dL (74-106); Potassium 3.7 mmol/L (3.5-5.1); Sodium Level 138 mmol/L (136-145); Troponin-I HS 583 pg/mL (3.0-78.0)
[2024-04-21] MEDS: SACUBITRIL/VALSARTAN 49-51 MG TABLET 1 EACH PO (09:01)
[2024-04-21] MEDS: Ezetimibe 10 MG Tablet PO (09:01)
[2024-04-21] MEDS: NIFEdipine 60 MG Tablet PO (09:01)
[2024-04-21] MEDS: Cinacalcet HCl 30 MG Tablet 120 MG PO (09:01)
[2024-04-21] MEDS: Sertraline 50 MG Tablet PO (09:01)
[2024-04-21] MEDS: Aspirin E.C. 81 MG Tablet PO (09:02)
[2024-04-21] MEDS: TICAGRELOR 90 MG TABLET PO (09:02)
[2024-04-21] MEDS: Metoprolol(XL)Succ 50 MG Tablet PO (09:02)
[2024-04-21] MEDS: busPIRone 15 MG TABLET PO (09:02)
[2024-04-21] MEDS: Lansoprazole 15 MG Capsule.DR 30 MG PO (09:02)
[2024-04-21 09:33] LABS: Bedside Glucose 145 mg/dL (74-106)
[2024-04-21 10:08] LABS: Bedside Glucose 145 mg/dL (74-106)
--- NOTE | 2024-04-21 10:52 | PCM.DC ---
Discharge Instructions Diet Discharge Diet: - (resume previous diet) DC O2, CPAP, BIPAP needs Home O2 Discharge instructions: No Dressing / Incision Discharge Activity: Return to Normal Activity Weight Bearing Status: Full weight bearing Follow Up Care Test Results: Test results from this visit will be discussed in further detail at your follow-up appointment, if applicable. 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 of atrial flutter including any need for futher testing such as a holter monitor and whether or not you need to take an additional blood thinner such as Eliquis Discharge Orders/Prescriptions Prescriptions: New metoprolol succinate 50 mg Tablet Extended Release 24 Hr 100 mg PO BID Qty: 120 0RF Continued (DME) blood-glucose meter [FreeStyle [place] Lite] Kit See Rx Instructions .ROUTE .MEDSUPPLY Qty: 1 0RF Rx Instructions: As directed (DME) pen needle, diabetic [BD Ultra-Fine [place] Pen Needle] 32 gauge x 5/32 needle See Rx Instructions .ROUTE .MEDSUPPLY Qty: 400 1RF Rx Instructions: 4 times daily (DME) lancets [FreeStyle Lancets] 28 gauge misc See Rx Instructions .ROUTE .MEDSUPPLY Qty: 100 5RF Rx Instructions: As directed atorvastatin 80 mg tablet 80 mg PO QHS Patient Comments: PT STATES HAS BEEN TAKING IN AM ezetimibe 10 mg tablet 10 mg PO DAILY albuterol sulfate 90 mcg/actuation HFA aerosol inhaler 2 puff inhalation Q6H PRN (Reason: Shortness Of Breath Or Wheezing) cholecalciferol (vitamin D3) 1,250 mcg (50,000 unit) capsule 50,000 unit PO QWEEK Patient Comments: take 1 capsule by mouth ONE TIME A WEEK takes it on Tuesdays nifedipine 60 mg tablet extended release 60 mg PO DAILY Velphoro 500 mg tablet,chewable 1,500 mg PO TID Patient Comments: CHEW & SWALLOW 3 TABLETS THREE TIMES A DAY WITH MEALS Trulicity 0.75 mg/0.5 mL pen injector 0.75 mg SUBCUT QWEEK Patient Comments: Inject 0.75 mg subcutaneously one time a week. Inject dose once per week. Discard Pen After Leonela-Herbie 0.8 mg tablet 1 tab PO DAILY trazodone 50 mg tablet 50 mg PO QHS sertraline 50 mg tablet 50 mg PO DAILY lanthanum 1,000 mg tablet,chewable 3,000 mg PO TIDCM insulin aspart U-100 [Novolog FlexPen U-100 Insulin] 100 unit/mL (3 mL) insulin pen 15 unit SC .COMPLEX Rx Instructions: 17 units subcutaneously TID CM; 8 units with snacks cinacalcet 60 mg tablet 120 mg PO DAILY Patient Comments: TAKE 2 TABLETS BY MOUTH DAILY gabapentin 300 mg capsule 300 mg PO QHS Patient Comments: Take 1 capsule by mouth daily at bedtime nitroglycerin 0.4 mg tablet, sublingual 0.4 mg buccal Q5M PRN (Reason: chest pain) aspirin 81 mg tablet,delayed release (DR/EC) 81 mg PO DAILY lansoprazole 30 mg capsule,delayed release(DR/EC) 30 mg PO BID buspirone 15 mg tablet 15 mg PO BID insulin degludec [Tresiba FlexTouch U-100] 100 unit/mL (3 mL) insulin pen 41 unit subcut QHS furosemide 40 mg tablet 40 mg PO DAILY Brilinta 90 mg tablet 90 mg PO BID sacubitril-valsartan [Entresto] 49-51 mg tablet 1 tab PO BID Discontinued metoprolol succinate 50 mg tablet extended release 24 hr 50 mg PO BID Referrals / Follow Up: Norris Mcqueen MD [Primary Care Provider] - 05/08/24 3:40 pm Disposition Disposition (needs filled in before D/C Order can be placed): Home, Self Care
--- NOTE | 2024-04-21 11:07 | PCM.DC.SUM ---
Providers Date of Admission: 04/21/24 Date of Discharge: 04/21/24 Primary Care Physician: Dr. Norris Mcqueen MD Reason For Visit: NSTEMI TYPE 2 Diagnosis Discharge Diagnosis (1) Non-ST elevation [place] (NSTEMI): Status: Acute Code(s): I21.4 - Non-ST elevation (NSTEMI) myocardial infarction (2) Atrial flutter with rapid ventricular response: Status: Acute Code(s): I48.92 - Unspecified atrial flutter Plan 1. Paroxysmal atrial flutter with RVR #2 demand ischemia secondary to paroxysmal atrial flutter #3 end-stage renal disease #4 essential hypertension #5 coronary artery disease Type II [place] was ruled out Medications at Discharge Home Medications blood-glucose meter (FreeStyle Lovelady Lite kit) #1 ea 12/22/19 lancets 28 gauge (FreeStyle Lancets) #100 ea 12/22/19 pen needle, diabetic 32 gauge x 5/32 (BD Ultra-Fine [place] Pen Needle) #400 ea 12/22/19 albuterol sulfate 90 mcg/actuation aerosol inhaler 2 puff inhalation Q6H PRN Shortness Of Breath Or Wheezing 07/26/21 atorvastatin 80 mg tablet 80 mg PO QHS CHOLESTEROL 07/26/21 ezetimibe 10 mg tablet 10 mg PO DAILY HIGH CHOLESTEROL 07/26/21 sucroferric oxyhydroxide 500 mg chewable tablet (Velphoro) 1,500 mg PO TID KIDNEY HEALTH 02/20/22 insulin aspart U-100 100 unit/mL (3 mL) subcutaneous pen (Novolog FlexPen U-100 Insulin aspart) 15 unit subcut .COMPLEX BLOOD SUGAR 01/22/23 lanthanum 1,000 mg chewable tablet 3,000 mg PO TIDCM for kidneys 01/22/23 sertraline 50 mg tablet 50 mg PO DAILY ANTI DEPRESSANT 01/22/23 trazodone 50 mg tablet 50 mg PO QHS SLEEP 01/22/23 vitamin B complex-vitamin C-folic acid 0.8 mg tablet (Leonela-Herbie) 1 tab PO DAILY VITAMIN 01/22/23 dulaglutide 0.75 mg/0.5 mL subcutaneous pen injector (Trulicity) 0.75 mg subcut QWEEK diabetes 04/10/23 cinacalcet 60 mg tablet 120 mg PO DAILY dialysis 05/04/23 gabapentin 300 mg capsule 300 mg PO QHS PAIN 05/04/23 nitroglycerin 0.4 mg sublingual tablet 0.4 mg buccal Q5M PRN chest pain 05/04/23 cholecalciferol (vitamin D3) 1,250 mcg (50,000 unit) capsule 50,000 unit PO QWEEK SUPPLEMENT 06/07/23 nifedipine 60 mg tablet,extended release 60 mg PO DAILY blood pressure 06/07/23 aspirin 81 mg tablet,delayed release 81 mg PO DAILY HEART 02/21/24 buspirone 15 mg tablet 15 mg PO BID mental health 02/21/24 insulin degludec 100 unit/mL (3 mL) subcutaneous pen (Tresiba FlexTouch U-100 insulin) 41 unit subcut QHS DM 02/21/24 lansoprazole 30 mg capsule,delayed release 30 mg PO BID GERD 02/21/24 furosemide 40 mg tablet 40 mg PO DAILY diuretic 04/21/24 metoprolol succinate 50 mg tablet,extended release 24 hr 100 mg (2 x 50 mg) PO BID #120 tabs 04/21/24 sacubitril 49 mg-valsartan 51 mg tablet (Entresto) 1 tab PO BID heart 04/21/24 ticagrelor 90 mg tablet (Brilinta) 90 mg PO BID anti platelet 04/21/24 Hospital Course Operations None Procedures None Summary of Care Provided Minutes Spent on Discharge: 31 Hospital Course: This 53-year-old black male was seen in the emergency room at [facility] with complaints of chest pain. He has a history of coronary artery disease and paroxysmal A-fib and flutter, however patient is not on full anticoagulation. Patient does take aspirin and Brilinta due to a recent stent which was placed. EKG was obtained in the emergency room which showed atrial flutter with a 2-1 block at 144 bpm, chest x-ray showed Anglea and mild pulmonary vascular congestion but the patient did not require supplemental oxygen. Patient was given IV Lopressor for a total of 3 doses, heart rate lowered to approximately 85, initial troponin was 92, next troponin was 181 and his third troponin was 583. The ER physician felt that the patient had a type II STEMI, and reviewing the chart I did not feel this was the case and I felt that the patient had demand ischemia. 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 Patient did not know why he was not started on full anticoagulation by his lending activities supervisor. On 04/21/2024, patient was seen and examined: On examination he appeared in good health and spirits. Vital signs as documented. Skin warm and dry and without overt rashes. Neck without JVD, neck was supple, trachea midline, thyroid was normal. Lungs clear bilaterally, normal air movement was noted. Heart exam notable for regular rhythm, normal sounds and absence of murmurs, rubs or gallops. Abdomen unremarkable and without evidence of organomegaly, masses, or abdominal aortic enlargement. Bowel sounds are present, abdomen is not distended. Extremities nonedematous, no cyanosis was noted, no clubbing was noted. Neuro: Cranial nerves II through XII are grossly intact, no focal motor deficits were noted, sensation to light touch and pinprick intact, motor exam 5/5 throughout. Psych: Patient is alert and oriented x3, he does not appear anxious or depressed, he does not appear agitated. Patient was discharged home in stable condition on 04/21/2024. Weight / BMI Weight Weight: 127.1 kg Body Mass Index (BMI) 41.3 ABG / Lab / Microbiology Data 04/21/24 05:31 04/21/24 05:31 Laboratory: Laboratory Results - last 24 hr 04/20/24 23:35: WBC 4.7, RBC 3.75 L, Hgb 10.6 L, Hct 32.6 L, MCV 86.9, MCH 28.3, MCHC 32.5, RDW Std Deviation 56.2 H, RDW Coeff of Kyle 17.6 H, Plt Count 225, MPV 10.1, Immature Gran % (Auto) 0.400, Neut % (Auto) 66.2, Lymph % (Auto) 17.0 L, Leslie % (Auto) 11.9 H, Eos % (Auto) 3.6, Baso % (Auto) 0.9, Absolute Neuts (auto) 3.1, Absolute Lymphs (auto) 0.80 L, Nucleated RBC % 0, PT 14.3, INR 1.1, APTT 29.9, Sodium 136, Potassium 4.6, Chloride 95 L, Carbon Dioxide 30.0, Anion Gap 11, BUN 29 H, Creatinine 6.10 H, Estim Creat Clear Calc 18.41, Est GFR (MDRD) Af Amer 12 L, Est GFR (MDRD) Non-Af 10 L, BUN/Creatinine Ratio 4.8 L, Glucose 182 H, Calcium 9.4, Troponin I High Sens 92 H 04/21/24 01:50: Troponin I High Sens 181 H* 04/21/24 05:31: WBC 4.5, RBC 3.38 L, Hgb 9.6 L, Hct 29.9 L, MCV 88.5, MCH 28.4, MCHC 32.1, RDW Std Deviation 56.2 H, RDW Coeff of Kyle 17.4 H, Plt Count 173, MPV 9.7, Immature Gran % (Auto) 0.400, Neut % (Auto) 63.9, Lymph % (Auto) 17.8 L, Leslie % (Auto) 12.7 H, Eos % (Auto) 4.5, Baso % (Auto) 0.7, Absolute Neuts (auto) 2.9, Absolute Lymphs (auto) 0.80 L, Nucleated RBC % 0, Sodium 138, Potassium 3.7, Chloride 97 L, Carbon Dioxide 32.0, Anion Gap 9, BUN 30 H, Creatinine 6.65 H, Estim Creat Clear Calc 16.95, Est GFR (MDRD) Af Amer 11 L, Est GFR (MDRD) Non-Af 9 L, BUN/Creatinine Ratio 4.5 L, Glucose 148 H, Calcium 9.2, Troponin I High Sens 583 H* 04/21/24 08:58: POC Glucose 145 H 04/21/24 09:49: POC Glucose 145 H Radiography Diagnostic Testing: Radiology Impression Chest X-Ray 04/20/24 23:55 IMPRESSION: Cardiomegaly and mild pulmonary vascular congestion. Electronically Signed: Annette Williamson MD at 0:40 EST Reading Location ID and State: [address] [place] [address] , Service support , D/C Instructions Discharge Diet: - (resume previous diet) Weight Bearing Status: Full weight bearing DC O2, CPAP, BIPAP Needs Home O2 Discharge instructions: No Meaningful Use Info Meaningful Use Meaningful Use Diagnoses (Choose all that apply): None applicable Ischemic Stroke Statin Dosing Therapy Reference: STATIN DOSE THERAPY REFERENCE: * Patients > 75 years receive moderate or high dose statin therapy. * Patients 75 years or YOUNGER should receive HIGH intensity statin dose unless contraindicated. You will be required to document reason for non-treatment if statin daily dose does not meet guidelines. HIGH DOSE STATIN THERAPY DAILY Atorvastatin > than or = to 40 mg Rosuvastatin > than or = to 20 mg Amlodipine + Atorvastatin > than or = to 2.5/40 mg Ezetimibe + Simvastatin 10/80 mg Simvastatin 80mg Discharge Plan Admission Admit Date/Time: 04/21/24 03:58 Attending Provider: Harsh Rubin Primary Care Provider: Norris Mcqueen Consulting Providers: Tk Campbell Instructions Additional Instructions / Restrictions: Discuss with your lending activities supervisor your episode of atrial flutter including any need for futher testing such as a holter monitor and whether or not you need to take an additional blood thinner such as Eliquis Discharge Orders/Prescriptions Prescriptions: New metoprolol succinate 50 mg Tablet Extended Release 24 Hr 100 mg PO BID Qty: 120 0RF Continued (DME) blood-glucose meter [FreeStyle Lovelady Lite] Kit See Rx Instructions .ROUTE .MEDSUPPLY Qty: 1 0RF Rx Instructions: As directed (DME) pen needle, diabetic [BD Ultra-Fine China Pen Needle] 32 gauge x 5/32 needle See Rx Instructions .ROUTE .MEDSUPPLY Qty: 400 1RF Rx Instructions: 4 times daily (DME) lancets [FreeStyle Lancets] 28 gauge misc See Rx Instructions .ROUTE .MEDSUPPLY Qty: 100 5RF Rx Instructions: As directed atorvastatin 80 mg tablet 80 mg PO QHS Patient Comments: PT STATES HAS BEEN TAKING IN AM ezetimibe 10 mg tablet 10 mg PO DAILY albuterol sulfate 90 mcg/actuation HFA aerosol inhaler 2 puff inhalation Q6H PRN (Reason: Shortness Of Breath Or Wheezing) cholecalciferol (vitamin D3) 1,250 mcg (50,000 unit) capsule 50,000 unit PO QWEEK Patient Comments: take 1 capsule by mouth ONE TIME A WEEK takes it on Tuesdays nifedipine 60 mg tablet extended release 60 mg PO DAILY Velphoro 500 mg tablet,chewable 1,500 mg PO TID Patient Comments: CHEW & SWALLOW 3 TABLETS THREE TIMES A DAY WITH MEALS Trulicity 0.75 mg/0.5 mL pen injector 0.75 mg SUBCUT QWEEK Patient Comments: Inject 0.75 mg subcutaneously one time a week. Inject dose once per week. Discard Pen After Leonela-Herbie 0.8 mg tablet 1 tab PO DAILY trazodone 50 mg tablet 50 mg PO QHS sertraline 50 mg tablet 50 mg PO DAILY lanthanum 1,000 mg tablet,chewable 3,000 mg PO TIDCM insulin aspart U-100 [Novolog FlexPen U-100 Insulin] 100 unit/mL (3 mL) insulin pen 15 unit SC .COMPLEX Rx Instructions: 17 units subcutaneously TID CM; 8 units with snacks cinacalcet 60 mg tablet 120 mg PO DAILY Patient Comments: TAKE 2 TABLETS BY MOUTH DAILY gabapentin 300 mg capsule 300 mg PO QHS Patient Comments: Take 1 capsule by mouth daily at bedtime nitroglycerin 0.4 mg tablet, sublingual 0.4 mg buccal Q5M PRN (Reason: chest pain) aspirin 81 mg tablet,delayed release (DR/EC) 81 mg PO DAILY lansoprazole 30 mg capsule,delayed release(DR/EC) 30 mg PO BID buspirone 15 mg tablet 15 mg PO BID insulin degludec [Tresiba FlexTouch U-100] 100 unit/mL (3 mL) insulin pen 41 unit subcut QHS furosemide 40 mg tablet 40 mg PO DAILY Brilinta 90 mg tablet 90 mg PO BID sacubitril-valsartan [Entresto] 49-51 mg tablet 1 tab PO BID Discontinued metoprolol succinate 50 mg tablet extended release 24 hr 50 mg PO BID Referrals / Follow Up: Norris Mcqueen MD [Primary Care Provider] - 05/08/24 3:40 pm Disposition Disposition (needs filled in before D/C Order can be placed): Home, Self Care Charges/Coding Visit Charges Inpatient E&M: 06410 Disch Hosp >30min
--- NOTE | 2024-04-21 11:40 | CASEMGMT ---
RN CM Face to Face with patient for initial transition planning/care coordination assessment. RN CM introduced self and role at [facility]. Patient lying in bed, alert and oriented. Patient willing to participate in assessment and is able to answer all questions appropriately. Care providers, pharmacy, and demographics verified. Strata: 3 PCP: Charisse Specialists: Ent Surgeon Francy; Jorge bulk filler Preferred Pharmacy: [facility] Insurance:[employer], MCR Prescription Benefit: yes Living Will/HPOA: yes, Shyanne Yung LNOK: , uncle Living Arrangements: Patient lives with in a 2 story home with bed and bath on first floor, 2 steps and railing to enter the home. Patient states he is independent at home. Transportation: self, DME/HHC: Patient has grab bars, cpap, and glucometer at home. No previous HHC or SNF Patient wishes to discharge home, denies need for home health at this time. Patient states he has no further needs or concerns at this time. CM to follow for discharge planning needs that may arise. Disposition Plan: Patient to discharge home with family support and follow-up plans in place. Felecia PENA, RN, CM
[2024-04-21] MEDS: Furosemide 40 MG Tablet PO (11:41)
[2024-04-21 12:49] LABS: Bedside Glucose 143 mg/dL (74-106)
== END 2024-04-21 12:24 | disposition home or self-care (01) | DRG 308 ==
LOC: ED 04-21 04:04 → PCU 04-21 04:11
PROVIDERS: Admitting Provider Family Medicine; Emergency Provider Emergency Medicine; PCP Family Medicine; Visit Provider Internal Medicine
DX: I48.92 Unspecified atrial flutter (principal); N18.6 End stage renal disease; I13.2 Hypertensive heart and chronic kidney disease with heart failure and with stage 5 chronic kidney disease, or end stage renal disease; I24.89 Other forms of acute ischemic heart disease; I50.22 Chronic systolic (congestive) heart failure; E11.42 Type 2 diabetes mellitus with diabetic polyneuropathy; J44.9 Chronic obstructive pulmonary disease, unspecified; F32.A Depression, unspecified; I42.9 Cardiomyopathy, unspecified; I48.0 Paroxysmal atrial fibrillation; I25.10 Atherosclerotic heart disease of native coronary artery without angina pectoris; Z99.2 Dependence on renal dialysis; E78.00 Pure hypercholesterolemia, unspecified; E11.22 Type 2 diabetes mellitus with diabetic chronic kidney disease; Z79.4 Long term (current) use of insulin; I25.2 Old myocardial infarction; G47.33 Obstructive sleep apnea (adult) (pediatric); K21.9 Gastro-esophageal reflux disease without esophagitis; F41.9 Anxiety disorder, unspecified; Z79.02 Long term (current) use of antithrombotics/antiplatelets; Z79.85 Long-term (current) use of injectable non-insulin antidiabetic drugs; Z79.82 Long term (current) use of aspirin; Z95.5 Presence of coronary angioplasty implant and graft
CPT/HCPCS: 36415; 71045; 80048; 82962; 84484; 85025; 85610; 85730; 93005; 99285; A4216

== ENCOUNTER 2024-05-02 08:21 | Outpatient (RCR) | payer OTHER, MEDICARE, SELFPAY ==
[2024-04-30 00:49] VITALS: BP 92/62
== END 2024-05-30 23:59 ==
LOC: CR 08:21
PROVIDERS: PCP Family Medicine; Referring Provider Internal Medicine Cardiovascular Disease; Visit Provider Internal Medicine Cardiovascular Disease
DX: I21.4 Non-ST elevation (NSTEMI) myocardial infarction (principal)

== ENCOUNTER 2024-05-26 12:44 | Emergency (ER) | payer OTHER, MEDICARE, SELFPAY ==
[2024-05-26 12:45] VITALS: BP 175/116; PULSE 108; RESP 22; TEMP 35.8; O2SAT 95
[2024-05-26 13:38] VITALS: BP 165/103; PULSE 108; RESP 19; O2SAT 98
[2024-05-26 13:39] VITALS: O2SAT 98
--- NOTE | 2024-05-26 14:24 | RAD_ITS ---
STUDY: X-RAY CHEST REASON FOR EXAM: Male, 53 years old. Chest pain TECHNIQUE: Single AP portable view of the chest. COMPARISON: Comparison is made with prior study dated April 20, 2024. FINDINGS: EKG electrodes are seen. The lungs are clear and expanded. There is no demonstrated pleural abnormality. There is mild cardiac enlargement. Normal mediastinum and erick. Normal visualized pulmonary arteries. Normal visualized aortic arch and descending thoracic aorta. Normal visualized thoracic spine. Normal visualized ribs, clavicles, and shoulders. There is no demonstrated abnormality of the visualized soft tissue structures of the upper abdomen. RAD/Chest 1 View (Portable) IMPRESSION: Mild cardiomegaly. The lungs are clear. Electronically Signed: Kevin Bustos MD at 14:47 EST ,
--- NOTE | 2024-05-26 14:24 | EKG12_ITS ---
Test Reason : Blood Pressure : */* mmHG Vent. Rate : 107 BPM Atrial Rate : 107 BPM P-R Int : 170 ms QRS Dur : 100 ms QT Int : 354 ms P-R-T Axes : -24 -28 21 degrees QTcB Int : 472 ms Sinus tachycardia Left ventricular hypertrophy with repolarization abnormality ( R in aVL , [place] product ) Abnormal ECG Confirmed by TOMI WILLETT, JULIO ([id number]), medical editor MADYSON YOST ([id number]) on 05/28/2024 6:22:24 AM Referred By: Wilfred Crawford Confirmed By: JULIO KRISHNA MD
--- NOTE | 2024-05-26 14:25 | EDS_ITS ---
HPI History of Present Illness Chief Complaint: Chest Pain Informant: patient Narrative Narrative: 53-year-old male with a history of CAD 3 stents in the past states he woke up at noon about 2 hours prior to evaluation with chest burning substernal no associated symptoms, improved with being upright, but has persisted despite getting 3 nitroglycerin, he states those did not help at all. He also has a history of reflux and states this feels like that, but the only medication he tried prior to coming in here was his daily omeprazole. Denies any dyspnea, vomiting, or worsening with exertion. He denies pleuritic component or recent illness or leg swelling/pain. [facility] Medical History Non-ST elevation VT (NSTEMI) Atrial flutter with rapid ventricular response Chest pain Paroxysmal atrial fibrillation Cardiomyopathy NSTEMI, initial episode of care Kidney disease Congestive heart failure (CHF) Anxiety Atrial fibrillation Chest pain Non-ST elevation VT (NSTEMI) Atrial flutter Dialysis patient CPAP (continuous positive airway pressure) dependence Pneumonia due to COVID-19 virus Myocardial infarct VERÓNICA (obstructive sleep apnea) Arteriosclerotic cardiovascular disease Dyslipidemia Elevated troponin ESRD on dialysis Wears glasses Wears partial dentures Insulin dependent diabetes mellitus Diabetes High cholesterol Non-smoker COPD (chronic obstructive pulmonary disease) Sleep apnea History of stress test History of echocardiogram Leg cramps Hypertension Cardiology follow-up encounter History of CHF (congestive heart failure) Fistula Hypotension Degenerative disc disease, cervical Diabetes mellitus, type II, insulin dependent Diabetic polyneuropathy (04/2017) GERD (gastroesophageal reflux disease) Chronic kidney disease with end stage renal failure on dialysis Non-ischemic cardiomyopathy Essential (primary) hypertension Syncope (07/2018) Problem with dialysis access Anemia of chronic renal failure, stage 4 (severe) Demand ischemia Morbid obesity Systolic and diastolic CHF, acute Elevated troponin Home Medications ?Medication ?Instructions ?Recorded ?Last Taken ?Type blood-glucose meter (FreeStyle #1 ea 12/22/19 Unknown Rx [place] Lite kit) lancets 28 gauge (FreeStyle #100 ea 12/22/19 Unknown Rx Lancets) pen needle, diabetic 32 gauge x #400 ea 12/22/19 Unknown Rx 32 (BD Ultra-Fine [place] Pen Needle) albuterol sulfate 90 mcg/actuation 2 puff inhalation Q6H PRN 07/26/21 01/21/23 History aerosol inhaler Shortness Of Breath Or Wheezing atorvastatin 80 mg tablet 80 mg PO QHS CHOLESTEROL 07/26/21 02/21/24 History ezetimibe 10 mg tablet 10 mg PO DAILY HIGH CHOLESTEROL 07/26/21 02/21/24 History sucroferric oxyhydroxide 500 mg 1,500 mg PO TID KIDNEY HEALTH 02/20/22 02/21/24 History chewable tablet (Velphoro) insulin aspart U-100 100 unit/mL 15 unit subcut .COMPLEX BLOOD SUGAR 01/22/23 02/21/24 History (3 mL) subcutaneous pen (Novolog FlexPen U-100 Insulin aspart) lanthanum 1,000 mg chewable tablet 3,000 mg PO TIDCM for kidneys 01/22/23 02/21/24 History sertraline 50 mg tablet 50 mg PO DAILY ANTI DEPRESSANT 01/22/23 02/21/24 History trazodone 50 mg tablet 50 mg PO QHS SLEEP 01/22/23 02/20/24 History vitamin B complex-vitamin C-folic 1 tab PO DAILY VITAMIN 01/22/23 02/21/24 Hi story acid 0.8 mg tablet (Leonela-Herbie) dulaglutide 0.75 mg/0.5 mL 0.75 mg subcut QWEEK diabetes 04/10/23 02/16/24 History subcutaneous pen injector (Trulicity) cinacalcet 60 mg tablet 120 mg PO DAILY dialysis 05/04/23 02/21/24 History gabapentin 300 mg capsule 300 mg PO QHS PAIN 05/04/23 02/20/24 History nitroglycerin 0.4 mg sublingual 0.4 mg buccal Q5M PRN chest pain 05/04/23 Unknown History tablet cholecalciferol (vitamin D3) 1,250 50,000 unit PO QWEEK SUPPLEMENT 06/07/23 02/21/24 History mcg (50,000 unit) capsule nifedipine 60 mg tablet,extended 60 mg PO DAILY blood pressure 06/07/23 10/08/23 History release aspirin 81 mg tablet,delayed 81 mg PO DAILY HEART 02/21/24 02/21/24 History release buspirone 15 mg tablet 15 mg PO BID mental health 02/21/24 02/21/24 History insulin degludec 100 unit/mL (3 41 unit subcut QHS DM 02/21/24 02/21/24 History mL) subcutaneous pen (Tresiba FlexTouch U-100 insulin) lansoprazole 30 mg capsule,delayed 30 mg PO BID GERD 02/21/24 02/21/24 History release furosemide 40 mg tablet 40 mg PO DAILY diuretic 04/21/24 Unknown History metoprolol succinate 50 mg 100 mg (2 x 50 mg) PO BID #120 tabs 04/21/24 Unknown Rx tablet,extended release 24 hr sacubitril 49 mg-valsartan 51 mg 1 tab PO BID heart 04/21/24 Unknown History tablet (Entresto) ticagrelor 90 mg tablet (Brilinta) 90 mg PO BID anti platelet 04/21/24 Unknown History Allergy/AdvReac Type Severity Reaction Status Date / Time liraglutide (From Victoza) Allergy Unknown unknown Verified 05/26/24 12:49 NSAIDS (Non-Steroidal AdvReac Severe Renal Verified 05/26/24 12:49 Anti-Inflamma failure BLANCA Inhibitors AdvReac Intermediate cough Verified 05/26/24 12:49 Family History Mother Hypertension Grandmother Aneurysm Other NSTEMI, initial episode of care Stented coronary artery Surgical History Stented coronary artery Hx of cardiac catheterization (~01/23/23) History of angioplasty of peripheral vessel (07/2021) Presence of surgically created arteriovenous shunt for hemodialysis (07/2017) Social History household members: spouse housing: house Smoking Status: Never smoker alcohol intake: never substance use type: does not use ROS ROS ED Constitutional Constitutional ED: Denies chills or fever(s) Eyes Eyes: Denies change in vision or diplopia ENT ENT ED: Denies rhinorrhea or sore throat Cardiovascular Cardiovascular: Reports as per HPI and chest pain; Denies palpitations Respiratory/Chest Respiratory/Chest: Denies cough or dyspnea Gastrointestinal Gastrointestinal: Denies abdominal pain, diarrhea, nausea or vomiting Genitourinary Genitourinary ED: Denies dysuria or hematuria Musculoskeletal Musculoskeletal: Denies back pain or neck pain Integumentary Denies abscess or rash Neurologic Neurologic: Denies headache(s), paresthesias or weakness Psychiatric Psychiatric: Denies anxiety or suicidal thoughts EXAM Physical Exam Const Vital Signs: 05/26/24 12:45 05/26/24 13:34 05/26/24 13:38 Temperature 96.5 F L Temperature Source Temporal Pulse Rate 108 H 108 H Respiratory Rate 22 H 19 H Respiratory Effort Normal Non-Labored Blood Pressure 175/116 H 165/103 H Blood Pressure Mean 135 123 Pulse Ox 95 98 Oxygen Delivery Method Room Air Room Air Oxygen Flow Rate (L/min) 05/26/24 13:39 05/26/24 14:32 05/26/24 14:32 Temperature Temperature Source Pulse Rate 107 H Respiratory Rate 18 Respiratory Effort Blood Pressure 166/102 H Blood Pressure Mean 123 Pulse Ox 98 100 100 Oxygen Delivery Method Nasal Cannula Nasal Cannula Nasal Cannula Oxygen Flow Rate (L/min) 2 2 2 05/26/24 15:18 Temperature Temperature Source Pulse Rate 63 Respiratory Rate 18 Respiratory Effort Blood Pressure 163/109 H Blood Pressure Mean 127 Pulse Ox 100 Oxygen Delivery Method Nasal Cannula Oxygen Flow Rate (L/min) 2 Positive well nourished and well developed General Appearance ED: well developed and NAD HEENT Reports moist mucous membranes normocephalic and atraumatic Eyes PERRL and EOMs intact bilaterally Neck full ROM and supple Resp normal respiratory effort and clear to auscultation bilaterally Cardio regular rate, regular rhythm and no murmurs GI non-tender and non-distended Auscultation: normoactive bowel sounds Palpation: soft Back/Spine no CVA tenderness General Back: other FROM Extremity normal to inspection General Extremety ED: Negative for edema, pulses abnormal or tenderness General Extremity: Negative for edema or pulses abnormal Neuro oriented x3, CN's II-XII intact bilaterally and no sensory deficits noted Sensorium / Orientation: awake and alert Motor Exam: strength 5/5 throughout Skin no rashes or lesions noted and no wounds Heart Score History: Slightly/Non-Suspicious ECG: Nonspecific Repolarization Age: >45 - <65 years Risk Factors: >/= 3 Risk Factors or History of CAD Troponin: </= Normal Limit Score: 4 MDM MDM MDM Narrative Medical decision making narrative: Patient certainly has risk, as well as a history of, coronary etiology, however in context of this history is less suspicious for that and more suspicious for esophageal reflux. Performed a cardiac workup, his EKG is abnormal but it is similar to how it has looked in the past showing no acute injury pattern, and changes that are probably due to LVH although myocardia ischemia is not able to be ruled out simply by this alone. His troponin, however, is in normal limits at 65, which is the lowest it has ever been looking back at prior readings. After GI cocktail he states the medication quickly relieved his symptoms. In context of this I do not think we need a second troponin, his risk is relatively low today and I am comfortable discharging home with close outpatient follow-up, and significant other states she has made him appointments for GI and he needs to keep them. We discussed reasons to return they are comfortable with that plan. Lab Data Attestation: I reviewed the patient's lab results. Labs: Laboratory Results - last 24 hr 05/26/24 14:00 WBC 7.0 RBC 3.66 L Hgb 10.6 L Hct 32.4 L MCV 88.5 MCH 29.0 MCHC 32.7 RDW Std Deviation 54.5 H RDW Coeff of Kyle 17.4 H Plt Count 234 MPV 10.6 Immature Gran % (Auto) 0.400 Neut % (Auto) 73.2 H Lymph % (Auto) 13.7 L Cassia % (Auto) 9.0 Eos % (Auto) 3.0 Baso % (Auto) 0.7 Absolute Neuts (auto) 5.1 Absolute Lymphs (auto) 0.96 Nucleated RBC % 0 Sodium 136 Potassium 4.7 Chloride 97 L Carbon Dioxide 25.0 Anion Gap 14 BUN 61 H Creatinine 11.10 H* Est GFR (MDRD) Af Amer 6 L Est GFR (MDRD) Non-Af 5 L BUN/Creatinine Ratio 5.5 L Glucose 202 H Calcium 9.7 Troponin I High Sens 65 Radiography Diagnostic Testing: Clinical Impression(s) from Imaging Studies Chest X-Ray 05/26/24 14:24 IMPRESSION: Mild cardiomegaly. The lungs are clear. Electronically Signed: Kevin Bustos MD at 14:47 EST , 1 view chest x-ray on my interpretation negative for mediastinal widening, pneumothorax, pneumonia, CHF Rhythm Strip Rhythm Strip: Sinus Tach Rate: 107 Ectopy: None EKG Initial EKG: Attestation: I personally reviewed and interpreted this EKG as follows: Interpretation: No Acute Injury Pattern, Sinus Tachycardia and S-T Depression (I, II & V4-6 -- 0.5-1mm) Comments: suspect LVH Prior EKG tracings: available for review Prior: Unchanged Discharge Plan Triage Chief Complaint: Chest Pain ED Provider: Wilfred Crawford Dx/Rx/DC Orders Clinical Impression: Chest pain due to GERD Instructions: ED Chest Pain, Noncardiac Prescriptions: No Action (DME) blood-glucose meter [FreeStyle [place] Lite] Kit See Rx Instructions .ROUTE .MEDSUPPLY Qty: 1 0RF Rx Instructions: As directed (DME) pen needle, diabetic [BD Ultra-Fine [place] Pen Needle] 32 gauge x 5/32 needle See Rx Instructions .ROUTE .MEDSUPPLY Qty: 400 1RF Rx Instructions: 4 times daily (DME) lancets [FreeStyle Lancets] 28 gauge misc See Rx Instructions .ROUTE .MEDSUPPLY Qty: 100 5RF Rx Instructions: As directed atorvastatin 80 mg tablet 80 mg PO QHS Patient Comments: PT STATES HAS BEEN TAKING IN AM ezetimibe 10 mg tablet 10 mg PO DAILY albuterol sulfate 90 mcg/actuation HFA aerosol inhaler 2 puff inhalation Q6H PRN (Reason: Shortness Of Breath Or Wheezing) cholecalciferol (vitamin D3) 1,250 mcg (50,000 unit) capsule 50,000 unit PO QWEEK Patient Comments: take 1 capsule by mouth ONE TIME A WEEK takes it on Tuesdays nifedipine 60 mg tablet extended release 60 mg PO DAILY Velphoro 500 mg tablet,chewable 1,500 mg PO TID Patient Comments: CHEW & SWALLOW 3 TABLETS THREE TIMES A DAY WITH MEALS Trulicity 0.75 mg/0.5 mL pen injector 0.75 mg SUBCUT QWEEK Patient Comments: Inject 0.75 mg subcutaneously one time a week. Inject dose once per week. Discard Pen After Leonela-Herbie 0.8 mg tablet 1 tab PO DAILY trazodone 50 mg tablet 50 mg PO QHS sertraline 50 mg tablet 50 mg PO DAILY lanthanum 1,000 mg tablet,chewable 3,000 mg PO TIDCM insulin aspart U-100 [Novolog FlexPen U-100 Insulin] 100 unit/mL (3 mL) insulin pen 15 unit SC .COMPLEX Rx Instructions: 17 units subcutaneously TID CM; 8 units with snacks cinacalcet 60 mg tablet 120 mg PO DAILY Patient Comments: TAKE 2 TABLETS BY MOUTH DAILY gabapentin 300 mg capsule 300 mg PO QHS Patient Comments: Take 1 capsule by mouth daily at bedtime nitroglycerin 0.4 mg tablet, sublingual 0.4 mg buccal Q5M PRN (Reason: chest pain) aspirin 81 mg tablet,delayed release (DR/EC) 81 mg PO DAILY lansoprazole 30 mg capsule,delayed release(DR/EC) 30 mg PO BID buspirone 15 mg tablet 15 mg PO BID insulin degludec [Tresiba FlexTouch U-100] 100 unit/mL (3 mL) insulin pen 41 unit subcut QHS furosemide 40 mg tablet 40 mg PO DAILY Brilinta 90 mg tablet 90 mg PO BID sacubitril-valsartan [Entresto] 49-51 mg tablet 1 tab PO BID metoprolol succinate 50 mg Tablet Extended Release 24 Hr 100 mg PO BID Qty: 120 0RF Primary Care Provider: Norris Mcqueen Referrals: Norris Mcqueen MD [Primary Care Provider] - (For recurrent symptoms) Print Language: [place]an Disposition Disposition: Home, Self Care
[2024-05-26 14:32] VITALS: BP 166/102; PULSE 107; RESP 18; O2SAT 100
[2024-05-26] MEDS: Mag Hydrox/Al Hydrox/Simeth 30 ML UDC PO (14:47)
[2024-05-26] MEDS: Lidocaine 2% Viscous15 ML UDC 15 ML PO (14:47)
[2024-05-26 14:52] LABS: Absolute Lymphocyte Count 0.96 X10^3/uL (0.83-4.51); Absolute Neutrophil Count 5.1 X10^3/uL (2.0-7.7); Basophil# 0.05 X10^3/uL; Basophil% 0.7 % (0-1); Eosinophil# 0.21 X10^3/uL; Hematocrit 32.4 % (40-54); Hemoglobin 10.6 g/dL (13.0-16.5); Lymphocyte # 0.96 X10^3/ul (0.83-4.51); Lymphocyte % 13.7 % (19-41); Mean Corp Hgb Conc 32.7 g/dL (32-36); Mean Corpuscular Volume 88.5 fL (80-94); Mean Platelet Vol. 10.6 fl (6.2-12.0); Monocyte# 0.63 X10^3/uL; NRBC Flagged by Analyzer 0 % (0-5); Neutrophil # 5.14 X10^3/uL (2.7-7.7); Neutrophil % 73.2 % (47-70); Platelet Count 234 K/mm3 (150-450); RBC Distribution Width CV 17.4 % (11.6-14.6); RBC Distribution Width SD 54.5 fl (35.1-43.9); Red Blood Count 3.66 M/mm3 (4.6-6.2)
[2024-05-26 15:17] LABS: Anion Gap 14 (5-15); BUN 61 mg/dL (7-18); BUN/Creat Ratio 5.5 RATIO (10-20); Calcium,Total 9.7 mg/dL (8.5-10.1); Chloride 97 mmol/L (98-107); EST Glomerular Filtration Rate 5 mL/min (>60); Est Glom Filt Rate - Afr Amer 6 mL/min (>60); Glucose 202 mg/dL (74-106); Potassium 4.7 mmol/L (3.5-5.1); Sodium Level 136 mmol/L (136-145); Troponin-I HS (w/2H Reflex) 65 pg/mL (3.0-78.0)
[2024-05-26 15:18] VITALS: BP 163/109; PULSE 63; RESP 18; O2SAT 100
[2024-05-26 16:04] VITALS: BP 162/89; PULSE 90; RESP 18; TEMP 36.6; O2SAT 97
[2024-05-26 16:44] LABS: Reflex Troponin-HS? (from REC) Y
== END 2024-05-26 16:05 | disposition home or self-care (01) ==
PROVIDERS: Emergency Provider Emergency Medicine; PCP Family Medicine; Referring Provider Emergency Medicine; Visit Provider Emergency Medicine
DX: K21.9 Gastro-esophageal reflux disease without esophagitis (principal); I13.2 Hypertensive heart and chronic kidney disease with heart failure and with stage 5 chronic kidney disease, or end stage renal disease; N18.6 End stage renal disease; I50.42 Chronic combined systolic (congestive) and diastolic (congestive) heart failure; J44.9 Chronic obstructive pulmonary disease, unspecified; I42.9 Cardiomyopathy, unspecified; E11.42 Type 2 diabetes mellitus with diabetic polyneuropathy; Z79.4 Long term (current) use of insulin; E11.22 Type 2 diabetes mellitus with diabetic chronic kidney disease; I25.10 Atherosclerotic heart disease of native coronary artery without angina pectoris; E78.00 Pure hypercholesterolemia, unspecified; Z79.02 Long term (current) use of antithrombotics/antiplatelets; Z79.899 Other long term (current) drug therapy; I25.2 Old myocardial infarction; Z95.5 Presence of coronary angioplasty implant and graft
CPT/HCPCS: 71045; 80048; 84484; 85025; 93005; 99285

== ENCOUNTER 2024-05-29 15:15 | Emergency (ER) | payer OTHER, MEDICARE, SELFPAY ==
[2024-05-29] VITALS (7 sets, daily range): BP systolic 147–162; BP diastolic 98–114; PULSE 65–76; RESP 16–98; TEMP 36.4; O2SAT 2–98; BMI 43.6
[2024-05-29] MEDS: Ipratropium/Albuterol Sulfate 3 ML AMPUL.NEB INHALATION (17:57)
--- NOTE | 2024-05-29 18:40 | RAD_ITS ---
PROCEDURE: CHEST PA AND LATERAL REASON FOR EXAM: Flu-like symptoms. TECHNIQUE: Frontal and lateral views of the chest. COMPARISON: 04/20/2024. FINDINGS: The heart is borderline enlarged. The mediastinal contour is unremarkable. The lungs are clear. The bones are unremarkable. RAD/Chest PA and Lateral IMPRESSION: No acute cardiopulmonary abnormalities. Reading Location: [id number]
[2024-05-29] MEDS: Ondansetron 4 MG/2 ML Vial IV (18:55)
[2024-05-29 18:56] LABS: Absolute Lymphocyte Count 0.83 X10^3/uL (0.83-4.51); Absolute Neutrophil Count 5.2 X10^3/uL (2.0-7.7); Basophil# 0.04 X10^3/uL; Basophil% 0.6 % (0-1); Eosinophils% 1.4 % (0-5); Hematocrit 31.8 % (40-54); Hemoglobin 10.5 g/dL (13.0-16.5); Lymphocyte # 0.83 X10^3/ul (0.83-4.51); Mean Corpuscular Hgb 28.7 pg (27.0-32.0); Mean Corpuscular Volume 86.9 fL (80-94); Mean Platelet Vol. 10.2 fl (6.2-12.0); Monocyte# 0.72 X10^3/uL; Monocyte% 10.4 % (0-10); NRBC Flagged by Analyzer 0 % (0-5); Neutrophil # 5.19 X10^3/uL (2.7-7.7); Neutrophil % 74.9 % (47-70); Platelet Count 195 K/mm3 (150-450); RBC Distribution Width CV 17.6 % (11.6-14.6); RBC Distribution Width SD 54.9 fl (35.1-43.9); Red Blood Count 3.66 M/mm3 (4.6-6.2); White Blood Count 6.9 K/mm3 (4.4-11.0)
--- NOTE | 2024-05-29 19:31 | EX.ED.DYSGE1 ---
HPI History of Present Illness Chief Complaint: Cold Sx Informant: patient Narrative Narrative: Patient presenting with 2 days of fevers, malaise, cough, dyspnea with wheezing, vomiting, diarrhea. Some abdominal cramping but no major abdominal pains beyond that. He was seen here a day or 2 prior to the onset of this for some chest discomfort, that has not recurred. He has a history of end-stage renal disease needing hemodialysis, and because he has been so ill in the last couple days he has not been able to get to his dialysis treatments. Denies any leg edema. [facility] Medical History Non-ST elevation AK (NSTEMI) Atrial flutter with rapid ventricular response Chest pain Paroxysmal atrial fibrillation Cardiomyopathy NSTEMI, initial episode of care Kidney disease Congestive heart failure (CHF) Anxiety Atrial fibrillation Chest pain Non-ST elevation AK (NSTEMI) Atrial flutter Dialysis patient CPAP (continuous positive airway pressure) dependence Pneumonia due to COVID-19 virus Myocardial infarct VERÓNICA (obstructive sleep apnea) Arteriosclerotic cardiovascular disease Dyslipidemia Elevated troponin ESRD on dialysis Wears glasses Wears partial dentures Insulin dependent diabetes mellitus Diabetes High cholesterol Non-smoker COPD (chronic obstructive pulmonary disease) Sleep apnea History of stress test History of echocardiogram Leg cramps Hypertension Cardiology follow-up encounter History of CHF (congestive heart failure) Fistula Hypotension Degenerative disc disease, cervical Diabetes mellitus, type II, insulin dependent Diabetic polyneuropathy (04/2017) GERD (gastroesophageal reflux disease) Chronic kidney disease with end stage renal failure on dialysis Non-ischemic cardiomyopathy Essential (primary) hypertension Syncope (07/2018) Problem with dialysis access Anemia of chronic renal failure, stage 4 (severe) Demand ischemia Morbid obesity Systolic and diastolic CHF, acute Elevated troponin Home Medications ?Medication ?Instructions ?Recorded ?Last Taken ?Type blood-glucose meter (FreeStyle #1 ea 12/22/19 Unknown Rx Keeler Lite kit) lancets 28 gauge (FreeStyle #100 ea 12/22/19 Unknown Rx Lancets) pen needle, diabetic 32 gauge x #400 ea 12/22/19 Unknown Rx (BD Ultra-Fine China Pen Needle) albuterol sulfate 90 mcg/actuation 2 puff inhalation Q6H PRN 07/26/21 01/21/23 History aerosol inhaler Shortness Of Breath Or Wheezing atorvastatin 80 mg tablet 80 mg PO QHS CHOLESTEROL 07/26/21 02/21/24 History ezetimibe 10 mg tablet 10 mg PO DAILY HIGH CHOLESTEROL 07/26/21 02/21/24 History sucroferric oxyhydroxide 500 mg 1,500 mg PO TID KIDNEY HEALTH 02/20/22 02/21/24 History chewable tablet (Velphoro) insulin aspart U-100 100 unit/mL 15 unit subcut .COMPLEX BLOOD SUGAR 01/22/23 02/21/24 History (3 mL) subcutaneous pen (Novolog FlexPen U-100 Insulin aspart) lanthanum 1,000 mg chewable tablet 3,000 mg PO TIDCM for kidneys 01/22/23 02/21/24 History sertraline 50 mg tablet 50 mg PO DAILY ANTI DEPRESSANT 01/22/23 02/21/24 History trazodone 50 mg tablet 50 mg PO QHS SLEEP 01/22/23 02/20/24 History vitamin B complex-vitamin C-folic 1 tab PO DAILY VITAMIN 01/22/23 02/21/24 History acid 0.8 mg tablet (Leonela-Herbie) dulaglutide 0.75 mg/0.5 mL 0.75 mg subcut QWEEK diabetes 04/10/23 02/16/24 History subcutaneous pen injector (Trulicity) cinacalcet 60 mg tablet 120 mg PO DAILY dialysis 05/04/23 02/21/24 History gabapentin 300 mg capsule 300 mg PO QHS PAIN 05/04/23 02/20/24 History nitroglycerin 0.4 mg sublingual 0.4 mg buccal Q5M PRN chest pain 05/04/23 Unknown History tablet cholecalciferol (vitamin D3) 1,250 50,000 unit PO QWEEK SUPPLEMENT 06/07/23 02/21/24 History mcg (50,000 unit) capsule nifedipine 60 mg tablet,extended 60 mg PO DAILY blood pressure 06/07/23 10/08/23 History release aspirin 81 mg tablet,delayed 81 mg PO DAILY HEART 02/21/24 02/21/24 History release buspirone 15 mg tablet 15 mg PO BID mental health 02/21/24 02/21/24 History insulin degludec 100 unit/mL (3 41 unit subcut QHS DM 02/21/24 02/21/24 History mL) subcutaneous pen (Tresiba FlexTouch U-100 insulin) lansoprazole 30 mg capsule,delayed 30 mg PO BID GERD 02/21/24 02/21/24 History release furosemide 40 mg tablet 40 mg PO DAILY diuretic 04/21/24 Unknown History metoprolol succinate 50 mg 100 mg (2 x 50 mg) PO BID #120 tabs 04/21/24 Unknown Rx tablet,extended release 24 hr sacubitril 49 mg-valsartan 51 mg 1 tab PO BID heart 04/21/24 Unknown History tablet (Entresto) ticagrelor 90 mg tablet (Brilinta) 90 mg PO BID anti platelet 04/21/24 Unknown History ondansetron 8 mg disintegrating 8 mg PO Q8H PRN nausea and 05/29/24 Unknown Rx tablet vomiting #15 tabs Allergy/AdvReac Type Severity Reaction Status Date / Time liraglutide (From Victoza) Allergy Unknown unknown Verified 05/29/24 15:16 NSAIDS (Non-Steroidal AdvReac Severe Renal Verified 05/29/24 15:16 Anti-Inflamma failure BLANCA Inhibitors AdvReac Intermediate cough Verified 05/29/24 15:16 Family History Mother Hypertension Grandmother Aneurysm Other NSTEMI, initial episode of care Stented coronary artery Surgical History Stented coronary artery Hx of cardiac catheterization (~01/23/23) History of angioplasty of peripheral vessel (07/2021) Presence of surgically created arteriovenous shunt for hemodialysis (07/2017) Social History household members: spouse housing: house Smoking Status: Never smoker alcohol intake: never substance use type: does not use ROS ROS ED Constitutional Constitutional ED: Reports chills, fever(s), malaise and subjective Eyes Eyes: Denies change in vision or diplopia ENT ENT ED: Reports rhinorrhea; Denies ear pain or sore throat Cardiovascular Cardiovascular: Denies chest pain, leg edema, lightheadedness or palpitations Respiratory/Chest Respiratory/Chest: Reports cough and dyspnea Gastrointestinal Gastrointestinal: Reports abdominal pain, diarrhea, nausea, vomiting and other Details: 5-7 bouts of diarrhea and vomiting without blood per day in the last 2 days ; Denies hematemesis or hematochezia Musculoskeletal Musculoskeletal: Denies back pain or neck pain Integumentary Denies abscess or rash Neurologic Neurologic: Denies headache(s), paresthesias or weakness EXAM Physical Exam Const Vital Signs: 05/29/24 15:16 05/29/24 17:16 05/29/24 17:23 Temperature 97.5 F L Temperature Source Temporal Pulse Rate 69 66 Respiratory Rate 16 20 H Respiratory Effort Normal Respiratory Pattern Normal Blood Pressure 147/98 H 156/103 H Blood Pressure Mean 114 120 Pulse Ox 98 96 Oxygen Delivery Method Room Air Room Air Oxygen Flow Rate (L/min) 05/29/24 17:58 05/29/24 19:11 05/29/24 19:15 Temperature Temperature Source Pulse Rate 65 68 Respiratory Rate 18 98 H Respiratory Effort Respiratory Pattern Normal Blood Pressure 162/114 H Blood Pressure Mean 130 Pulse Ox 2 98 Oxygen Delivery Method Nasal Cannula Nasal Cannula Oxygen Flow Rate (L/min) 2 Positive well nourished, well developed and obese General Appearance ED: well developed and NAD Nutritional Appearance: obese HEENT Reports moist mucous membranes normocephalic and atraumatic Eyes PERRL and EOMs intact bilaterally Neck full ROM and supple Resp normal respiratory effort Resp Narrative: Slight diffuse expiratory wheezes otherwise clear and diminished throughout, symmetrically. Conversive in full sentences. Cardio regular rate and regular rhythm Rate: Negative for tachycardic GI non-tender and non-distended Auscultation: normoactive bowel sounds Palpation: soft Back/Spine no CVA tenderness General Back: other FROM Extremity normal to inspection General Extremety ED: Negative for edema, pulses abnormal or tenderness General Extremity: Negative for edema or pulses abnormal Neuro oriented x3, CN's II-XII intact bilaterally and no sensory deficits noted Sensorium / Orientation: awake and alert Motor Exam: strength 5/5 throughout Psych mental status grossly normal Skin no rashes or lesions noted and no wounds MDM MDM MDM Narrative Medical decision making narrative: I do not think the patient is likely to be fluid overloaded, if anything a little under loaded/dehydrated. I asked if he has been checking his dry weights at home, he has not. Therefore I did a chest x-ray prior to given him any fluids to rule out pulmonary edema; 2 view on my interpretation shows no pulmonary edema, no pneumothorax, no pneumonia. Therefore he was given 500 cc of IV fluids, while we waited for labs. They show hyperkalemia 6.3, so an EKG was obtained while he was getting a nebulizer treatment. He does not have any acute hyperkalemic changes on the EKG. He was given Kayexalate. Discussed with Dr. Lamar as the patient really prefers not to stay when I offered admission. He states given him the Kayexalate 15 g and discharging him if he is getting dialysis in the morning and since he does not have EKG changes is completely reasonable patient is amenable to that and asking for a prescription for Zofran since it worked really well and he feels better. Lab Data Attestation: I reviewed the patient's lab results. Labs: Laboratory Results - last 24 hr 05/29/24 18:50 WBC 6.9 RBC 3.66 L Hgb 10.5 L Hct 31.8 L MCV 86.9 MCH 28.7 MCHC 33.0 RDW Std Deviation 54.9 H RDW Coeff of Kyle 17.6 H Plt Count 195 MPV 10.2 Immature Gran % (Auto) 0.700 Neut % (Auto) 74.9 H Lymph % (Auto) 12.0 L [place] % (Auto) 10.4 H Eos % (Auto) 1.4 Baso % (Auto) 0.6 Absolute Neuts (auto) 5.2 Absolute Lymphs (auto) 0.83 Nucleated RBC % 0 Sodium 134 L Potassium 6.3 H* Chloride 96 L Carbon Dioxide 21.0 Anion Gap 18 H BUN 97 H Creatinine 15.30 H* Estim Creat Clear Calc 7.59 Est GFR (MDRD) Af Amer 4 L Est GFR (MDRD) Non-Af 4 L BUN/Creatinine Ratio 6.3 L Glucose 113 H Calcium 9.6 Radiography Diagnostic Testing: Clinical Impression(s) from Imaging Studies Chest X-Ray 05/29/24 18:40 IMPRESSION: No acute cardiopulmonary abnormalities. Reading Location: [facility] Rhythm Strip Rhythm Strip: Sinus Rhythm Rate: 65 Ectopy: None EKG Initial EKG: Attestation: I personally reviewed and interpreted this EKG as follows: Interpretation: Sinus Rhythm, No Acute Injury Pattern and Non-Specific ST Changes Comments: Narrow QRS, no AV block, no significant T wave peaking Prior EKG tracings: available for review Prior: Unchanged Management Discussion w/another healthcare provider: [facility] (Nephrology) Discharge Plan Triage Chief Complaint: Cold Sx ED Provider: Wilfred Crawford Dx/Rx/DC Orders Clinical Impression: Acute viral syndrome, End-stage renal disease on hemodialysis, Acute hyperkalemia, Mild dehydration Instructions: ED Hyperkalemia, ED Viral Syndrome (Adult) Prescriptions: New ondansetron 8 mg tablet,disintegrating 8 mg PO Q8H PRN (Reason: nausea and vomiting) Qty: 15 0RF No Action (DME) blood-glucose meter [FreeStyle Keeler Lite] Kit See Rx Instructions .ROUTE .MEDSUPPLY Qty: 1 0RF Rx Instructions: As directed (DME) pen needle, diabetic [BD Ultra-Fine China Pen Needle] 32 gauge x 5/32 needle See Rx Instructions .ROUTE .MEDSUPPLY Qty: 400 1RF Rx Instructions: 4 times daily (DME) lancets [FreeStyle Lancets] 28 gauge misc See Rx Instructions .ROUTE .MEDSUPPLY Qty: 100 5RF Rx Instructions: As directed atorvastatin 80 mg tablet 80 mg PO QHS Patient Comments: PT STATES HAS BEEN TAKING IN AM ezetimibe 10 mg tablet 10 mg PO DAILY albuterol sulfate 90 mcg/actuation HFA aerosol inhaler 2 puff inhalation Q6H PRN (Reason: Shortness Of Breath Or Wheezing) cholecalciferol (vitamin D3) 1,250 mcg (50,000 unit) capsule 50,000 unit PO QWEEK Patient Comments: take 1 capsule by mouth ONE TIME A WEEK takes it on Tuesdays nifedipine 60 mg tablet extended release 60 mg PO DAILY Velphoro 500 mg tablet,chewable 1,500 mg PO TID Patient Comments: CHEW & SWALLOW 3 TABLETS THREE TIMES A DAY WITH MEALS Trulicity 0.75 mg/0.5 mL pen injector 0.75 mg SUBCUT QWEEK Patient Comments: Inject 0.75 mg subcutaneously one time a week. Inject dose once per week. Discard Pen After Leonela-Herbie 0.8 mg tablet 1 tab PO DAILY trazodone 50 mg tablet 50 mg PO QHS sertraline 50 mg tablet 50 mg PO DAILY lanthanum 1,000 mg tablet,chewable 3,000 mg PO TIDCM insulin aspart U-100 [Novolog FlexPen U-100 Insulin] 100 unit/mL (3 mL) insulin pen 15 unit SC .COMPLEX Rx Instructions: 17 units subcutaneously TID CM; 8 units with snacks cinacalcet 60 mg tablet 120 mg PO DAILY Patient Comments: TAKE 2 TABLETS BY MOUTH DAILY gabapentin 300 mg capsule 300 mg PO QHS Patient Comments: Take 1 capsule by mouth daily at bedtime nitroglycerin 0.4 mg tablet, sublingual 0.4 mg buccal Q5M PRN (Reason: chest pain) aspirin 81 mg tablet,delayed release (DR/EC) 81 mg PO DAILY lansoprazole 30 mg capsule,delayed release(DR/EC) 30 mg PO BID buspirone 15 mg tablet 15 mg PO BID insulin degludec [Tresiba FlexTouch U-100] 100 unit/mL (3 mL) insulin pen 41 unit subcut QHS furosemide 40 mg tablet 40 mg PO DAILY Brilinta 90 mg tablet 90 mg PO BID sacubitril-valsartan [Entresto] 49-51 mg tablet 1 tab PO BID metoprolol succinate 50 mg Tablet Extended Release 24 Hr 100 mg PO BID Qty: 120 0RF Primary Care Provider: Norris Mcqueen Referrals: Norris Mcqueen MD [Primary Care Provider] - 3-5 Days if not improving Activity Restrictions/Additional Instructions: Make sure you do not miss dialysis tomorrow morning Print Language: Sinhala Disposition Disposition: Home, Self Care
[2024-05-29 19:35] LABS: Anion Gap 18 (5-15); BUN 97 mg/dL (7-18); BUN/Creat Ratio 6.3 RATIO (10-20); Calcium,Total 9.6 mg/dL (8.5-10.1); Chloride 96 mmol/L (98-107); EST Glomerular Filtration Rate 4 mL/min (>60); Est Glom Filt Rate - Afr Amer 4 mL/min (>60); Estimated Creatinine Clearance 7.59 ml/min; Glucose 113 mg/dL (74-106); Potassium 6.3 mmol/L (3.5-5.1); Sodium Level 134 mmol/L (136-145)
--- NOTE | 2024-05-29 19:35 | EKG12_ITS ---
Test Reason : DYSRHYTHMIA Blood Pressure : */* mmHG Vent. Rate : 66 BPM Atrial Rate : 66 BPM P-R Int : 154 ms QRS Dur : 102 ms QT Int : 458 ms P-R-T Axes : 25 -32 163 degrees QTcB Int : 480 ms Normal sinus rhythm Left axis deviation Minimal voltage criteria for LVH, may be normal variant ( R in aVL ) Nonspecific ST and T wave abnormality Prolonged QT Abnormal ECG Confirmed by GA WILLETT, RADHA ([id number]), associate editor MADYSON YOST ([id number]) on 06/02/2024 6:06:14 AM Referred By: Confirmed By: RADHA KOROMA MD
[2024-05-29] MEDS: 0.9% Normal Saline (500mL Bag) 500 ML 999 ML IV (19:45)
[2024-05-29] MEDS: Sodium Polystyrene Sulfonate 15 GM/60 ML UDC PO (21:29)
== END 2024-05-29 21:40 | disposition home or self-care (01) ==
PROVIDERS: Emergency Provider Emergency Medicine; PCP Family Medicine; Visit Provider Emergency Medicine
DX: B34.9 Viral infection, unspecified (principal); I13.2 Hypertensive heart and chronic kidney disease with heart failure and with stage 5 chronic kidney disease, or end stage renal disease; N18.6 End stage renal disease; I50.42 Chronic combined systolic (congestive) and diastolic (congestive) heart failure; J44.9 Chronic obstructive pulmonary disease, unspecified; I42.9 Cardiomyopathy, unspecified; E11.42 Type 2 diabetes mellitus with diabetic polyneuropathy; E11.22 Type 2 diabetes mellitus with diabetic chronic kidney disease; Z79.4 Long term (current) use of insulin; R50.9 Fever, unspecified; R05.9 Cough, unspecified; E86.0 Dehydration; Z99.2 Dependence on renal dialysis; R06.00 Dyspnea, unspecified; R19.7 Diarrhea, unspecified; R11.10 Vomiting, unspecified; Z11.52 Encounter for screening for COVID-19; E78.00 Pure hypercholesterolemia, unspecified; E87.5 Hyperkalemia; I25.10 Atherosclerotic heart disease of native coronary artery without angina pectoris; I25.2 Old myocardial infarction; Z79.02 Long term (current) use of antithrombotics/antiplatelets; Z79.82 Long term (current) use of aspirin; Z79.85 Long-term (current) use of injectable non-insulin antidiabetic drugs; Z79.899 Other long term (current) drug therapy
CPT/HCPCS: 71046; 80048; 85025; 87631; 93005; 94640; 96361; 96374; 99283; A4216; J2405

== ENCOUNTER 2024-06-21 09:53 | Emergency (ER) | payer OTHER, MEDICARE, SELFPAY ==
[2024-06-21 09:54] VITALS: BP 144/90; PULSE 90; RESP 18; TEMP 36.7; O2SAT 95; BMI 63.6
--- NOTE | 2024-06-21 10:33 | EX.ED.DYSGE1 ---
HPI History of Present Illness Chief Complaint: General Illness Narrative Narrative: 54-year-old male past medical history of hypertension, diabetes, presents with upper respiratory infection type symptoms/flulike illness for the last 3 to 4 days. States the worst of it is mainly cough and shortness of breath. After he dropped his off at work, he had a coughing jag where he almost had a syncopal episode and could not breathe very well. He endorses nausea and vomiting as well as body aches, cough, and shortness of breath. No exacerbating or alleviating factors. [facility] Medical History Non-ST elevation VT (NSTEMI) Atrial flutter with rapid ventricular response Chest pain Paroxysmal atrial fibrillation Cardiomyopathy NSTEMI, initial episode of care Kidney disease Congestive heart failure (CHF) Anxiety Atrial fibrillation Chest pain Non-ST elevation VT (NSTEMI) Atrial flutter Dialysis patient CPAP (continuous positive airway pressure) dependence Pneumonia due to COVID-19 virus Myocardial infarct VERÓNICA (obstructive sleep apnea) Arteriosclerotic cardiovascular disease Dyslipidemia Elevated troponin ESRD on dialysis Wears glasses Wears partial dentures Insulin dependent diabetes mellitus Diabetes High cholesterol Non-smoker COPD (chronic obstructive pulmonary disease) Sleep apnea History of stress test History of echocardiogram Leg cramps Hypertension Cardiology follow-up encounter History of CHF (congestive heart failure) Fistula Hypotension Degenerative disc disease, cervical Diabetes mellitus, type II, insulin dependent Diabetic polyneuropathy (04/2017) GERD (gastroesophageal reflux disease) Chronic kidney disease with end stage renal failure on dialysis Non-ischemic cardiomyopathy Essential (primary) hypertension Syncope (07/2018) Problem with dialysis access Anemia of chronic renal failure, stage 4 (severe) Demand ischemia Morbid obesity Systolic and diastolic CHF, acute Elevated troponin Home Medications ?Medication ?Instructions ?Recorded ?Last Taken ?Type blood-glucose meter (FreeStyle #1 ea 12/22/19 Unknown Rx [place] Lite kit) lancets 28 gauge (FreeStyle #100 ea 12/22/19 Unknown Rx Lancets) pen needle, diabetic 32 gauge x #400 ea 12/22/19 Unknown Rx (BD Ultra-Fine [place] Pen Needle) albuterol sulfate 90 mcg/actuation 2 puff inhalation Q6H PRN 07/26/21 01/21/23 History aerosol inhaler Shortness Of Breath Or Wheezing atorvastatin 80 mg tablet 80 mg PO QHS CHOLESTEROL 07/26/21 02/21/24 History ezetimibe 10 mg tablet 10 mg PO DAILY HIGH CHOLESTEROL 07/26/21 02/21/24 History sucroferric oxyhydroxide 500 mg 1,500 mg PO TID KIDNEY HEALTH 02/20/22 02/21/24 History chewable tablet (Velphoro) insulin aspart U-100 100 unit/mL 15 unit subcut .COMPLEX BLOOD SUGAR 01/22/23 02/21/24 History (3 mL) subcutaneous pen (Novolog FlexPen U-100 Insulin aspart) lanthanum 1,000 mg chewable tablet 3,000 mg PO TIDCM for kidneys 01/22/23 02/21/24 History sertraline 50 mg tablet 50 mg PO DAILY ANTI DEPRESSANT 01/22/23 02/21/24 History trazodone 50 mg tablet 50 mg PO QHS SLEEP 01/22/23 02/20/24 History vitamin B complex-vitamin C-folic 1 tab PO DAILY VITAMIN 01/22/23 02/21/24 History acid 0.8 mg tablet (Leonela-Herbie) dulaglutide 0.75 mg/0.5 mL 0.75 mg subcut QWEEK diabetes 04/10/23 02/16/24 History subcutaneous pen injector (Trulicity) cinacalcet 60 mg tablet 120 mg PO DAILY dialysis 05/04/23 02/21/24 History gabapentin 300 mg capsule 300 mg PO QHS PAIN 05/04/23 02/20/24 History nitroglycerin 0.4 mg sublingual 0.4 mg buccal Q5M PRN chest pain 05/04/23 Unknown History tablet cholecalciferol (vitamin D3) 1,250 50,000 unit PO QWEEK SUPPLEMENT 06/07/23 02/21/24 History mcg (50,000 unit) capsule nifedipine 60 mg tablet,extended 60 mg PO DAILY blood pressure 06/07/23 10/08/23 History release aspirin 81 mg tablet,delayed 81 mg PO DAILY HEART 02/21/24 02/21/24 History release buspirone 15 mg tablet 15 mg PO BID mental health 02/21/24 02/21/24 History insulin degludec 100 unit/mL (3 41 unit subcut QHS DM 02/21/24 02/21/24 History mL) subcutaneous pen (Tresiba FlexTouch U-100 insulin) lansoprazole 30 mg capsule,delayed 30 mg PO BID GERD 02/21/24 02/21/24 History release furosemide 40 mg tablet 40 mg PO DAILY diuretic 04/21/24 Unknown History metoprolol succinate 50 mg 100 mg (2 x 50 mg) PO BID #120 tabs 04/21/24 Unknown Rx tablet,extended release 24 hr sacubitril 49 mg-valsartan 51 mg 1 tab PO BID heart 04/21/24 Unknown History tablet (Entresto) ticagrelor 90 mg tablet (Brilinta) 90 mg PO BID anti platelet 04/21/24 Unknown History ondansetron 8 mg disintegrating 8 mg PO Q8H PRN nausea and 05/29/24 Unknown Rx tablet vomiting #15 tabs albuterol sulfate 90 mcg/actuation 1 - 2 puff inhalation Q4H PRN PRN 06/21/24 Unknown Rx aerosol inhaler (Ventolin HFA) Wheezing #1 ea prednisone 20 mg tablet 40 mg (2 x 20 mg) PO DAILY 5 days 06/21/24 Unknown Rx #10 tabs Allergy/AdvReac Type Severity Reaction Status Date / Time liraglutide (From Victoza) Allergy Unknown unknown Verified 06/21/24 10:38 NSAIDS (Non-Steroidal AdvReac Severe Renal Verified 06/21/24 10:38 Anti-Inflamma failure BLANCA Inhibitors AdvReac Intermediate cough Verified 06/21/24 10:38 Family History Mother Hypertension Grandmother Aneurysm Other NSTEMI, initial episode of care Stented coronary artery Surgical History Stented coronary artery Hx of cardiac catheterization (~01/23/23) History of angioplasty of peripheral vessel (07/2021) Presence of surgically created arteriovenous shunt for hemodialysis (07/2017) Social History household members: spouse housing: house Smoking Status: Never smoker alcohol intake: never substance use type: does not use ROS ROS ED ROS Narrative Constitutional: Positive subjective fevers and chills HEENT: No sore throat. No neck pain. Cardiovascular: No chest pain. No palpitations. No pedal edema. Respiratory: Positive cough, positive shortness of breath. Abdominal: No abdominal pain. Positive nausea and vomiting, 4-5 episodes, nonbloody. Genitourinary: No dysuria. No hematuria. Musculoskeletal: Multiple myalgias and arthralgias. Neurologic: No headaches. No dizziness. No lightheadedness. EXAM Physical Exam Narrative Exam Narrative: Afebrile. Vital signs noted. Nontoxic-appearing. Cardiovascular examination reveals a regular rate and rhythm. Lungs are clear to auscultation bilaterally but with prolonged expiratory phase. Abdomen is soft, nontender, without guarding or rebound. Positive bowel sounds. Neurological examination is nonfocal and nonlateralizing. Examined while sitting up on bed. Const Vital Signs: 06/21/24 09:54 06/21/24 10:33 06/21/24 10:51 Temperature 98.1 F Temperature Source Temporal Pulse Rate 90 78 Respiratory Rate 18 20 H Respiratory Effort Normal Respiratory Pattern Normal Normal Blood Pressure 144/90 H Blood Pressure Mean 108 Pulse Ox 95 Oxygen Delivery Method Room Air 06/21/24 11:53 Temperature Temperature Source Pulse Rate 78 Respiratory Rate Respiratory Effort Respiratory Pattern Blood Pressure 138/89 H Blood Pressure Mean 105 Pulse Ox 98 Oxygen Delivery Method MDM MDM MDM Narrative Medical decision making narrative: Differential diagnosis includes but not limited to viral syndrome including secondary to COVID versus influenza versus RSV versus pneumonia versus bronchitis. I have low suspicion for pneumothorax based on the patient's clinical examination. Additionally, I discussed with him respiratory swabbing but he is outside the window for any antiviral for influenza, and he declines. He will be given an albuterol aerosolized treatment and chest x-ray and 2 views obtained to rule out pneumonia and pneumothorax. On my independent interpretation of his chest x-ray there is no evidence of pneumonia or pneumothorax. I reviewed the radiology report which confirms my independent interpretation. Repeat examination at approximately 1220 shows that he is resting comfortably, and feels mildly improved. At this point in time, he will be discharged with a prescription for an albuterol inhaler as well as a prednisone burst. He was told to keep an eye on his blood sugar during the prednisone burst as well, as he states he has taken this before. I do not feel antibiotics are indicated. I feel he can be discharged to follow-up. Pulse ox currently 98% on room air without evidence of hypoxia. Return instructions to the emergency department were reviewed. Disposition is discharged home in stable condition. History & Record Review Discussion w/independent historian: Patient Radiography Diagnostic Testing: Clinical Impression(s) from Imaging Studies Chest X-Ray 06/21/24 11:20 IMPRESSION: No radiographic evidence of acute cardiopulmonary disease. Reading Location: [facility] Discharge Plan Triage Chief Complaint: General Illness ED Provider: Terrell Mortensen Dx/Rx/DC Orders Clinical Impression: Viral syndrome, Bronchitis Instructions: ED Viral Syndrome (Adult), ED URI, Viral, No Abx (Adult) Prescriptions: New albuterol sulfate [Ventolin HFA] 90 mcg/actuation HFA aerosol inhaler 1 - 2 puff inhalation Q4H PRN PRN (Reason: Wheezing) Qty: 1 0RF prednisone 20 mg tablet 40 mg PO DAILY 5 Days Qty: 10 0RF No Action (DME) blood-glucose meter [FreeStyle [place] Lite] Kit See Rx Instructions .ROUTE .MEDSUPPLY Qty: 1 0RF Rx Instructions: As directed (DME) pen needle, diabetic [BD Ultra-Fine [place] Pen Needle] 32 gauge x 5/32 needle See Rx Instructions .ROUTE .MEDSUPPLY Qty: 400 1RF Rx Instructions: 4 times daily (DME) lancets [FreeStyle Lancets] 28 gauge misc See Rx Instructions .ROUTE .MEDSUPPLY Qty: 100 5RF Rx Instructions: As directed atorvastatin 80 mg tablet 80 mg PO QHS Patient Comments: PT STATES HAS BEEN TAKING IN AM ezetimibe 10 mg tablet 10 mg PO DAILY albuterol sulfate 90 mcg/actuation HFA aerosol inhaler 2 puff inhalation Q6H PRN (Reason: Shortness Of Breath Or Wheezing) cholecalciferol (vitamin D3) 1,250 mcg (50,000 unit) capsule 50,000 unit PO QWEEK Patient Comments: take 1 capsule by mouth ONE TIME A WEEK takes it on Tuesdays nifedipine 60 mg tablet extended release 60 mg PO DAILY Velphoro 500 mg tablet,chewable 1,500 mg PO TID Patient Comments: CHEW & SWALLOW 3 TABLETS THREE TIMES A DAY WITH MEALS Trulicity 0.75 mg/0.5 mL pen injector 0.75 mg SUBCUT QWEEK Patient Comments: Inject 0.75 mg subcutaneously one time a week. Inject dose once per week. Discard Pen After Leonela-Herbie 0.8 mg tablet 1 tab PO DAILY trazodone 50 mg tablet 50 mg PO QHS sertraline 50 mg tablet 50 mg PO DAILY lanthanum 1,000 mg tablet,chewable 3,000 mg PO TIDCM insulin aspart U-100 [Novolog FlexPen U-100 Insulin] 100 unit/mL (3 mL) insulin pen 15 unit SC .COMPLEX Rx Instructions: 17 units subcutaneously TID CM; 8 units with snacks cinacalcet 60 mg tablet 120 mg PO DAILY Patient Comments: TAKE 2 TABLETS BY MOUTH DAILY gabapentin 300 mg capsule 300 mg PO QHS Patient Comments: Take 1 capsule by mouth daily at bedtime nitroglycerin 0.4 mg tablet, sublingual 0.4 mg buccal Q5M PRN (Reason: chest pain) aspirin 81 mg tablet,delayed release (DR/EC) 81 mg PO DAILY lansoprazole 30 mg capsule,delayed release(DR/EC) 30 mg PO BID buspirone 15 mg tablet 15 mg PO BID insulin degludec [Tresiba FlexTouch U-100] 100 unit/mL (3 mL) insulin pen 41 unit subcut QHS ondansetron 8 mg tablet,disintegrating 8 mg PO Q8H PRN (Reason: nausea and vomiting) Qty: 15 0RF furosemide 40 mg tablet 40 mg PO DAILY Brilinta 90 mg tablet 90 mg PO BID sacubitril-valsartan [Entresto] 49-51 mg tablet 1 tab PO BID metoprolol succinate 50 mg Tablet Extended Release 24 Hr 100 mg PO BID Qty: 120 0RF Primary Care Provider: Norris Mcqueen Referrals: Norris Mcqueen MD [Primary Care Provider] - 1 Week if not improving Activity Restrictions/Additional Instructions: Use the albuterol inhaler as needed 1 to 2 puffs every 4-6 hours for shortness of breath. Return to the emergency department with increased difficulty breathing, new or worsening symptoms. Keep an eye on your blood glucose levels as prednisone may increase these while you are taking the burst. Print Language: Ukrainian Disposition Disposition: Home, Self Care
[2024-06-21] MEDS: Albuterol 2.5 MG/3 ML VIAL.NEB. INHALATION (10:50)
[2024-06-21 10:51] VITALS: PULSE 78; RESP 20
--- NOTE | 2024-06-21 11:20 | RAD_ITS ---
PROCEDURE: CHEST PA AND LATERAL REASON FOR EXAM: Shortness of breath, cough TECHNIQUE: Frontal and lateral views of the chest. COMPARISON: 05/26/2024 FINDINGS: The heart size is normal. The mediastinal contour is unremarkable. The lungs are clear. The bones are unremarkable. RAD/Chest PA and Lateral IMPRESSION: No radiographic evidence of acute cardiopulmonary disease. Reading Location: [facility]
[2024-06-21 11:53] VITALS: BP 138/89; PULSE 78; O2SAT 98
[2024-06-21 12:29] VITALS: BP 138/89; PULSE 78; RESP 16; TEMP 36.6; O2SAT 98
== END 2024-06-21 12:30 | disposition home or self-care (01) ==
PROVIDERS: Emergency Provider Emergency Medicine; PCP Family Medicine; Visit Provider Emergency Medicine
DX: J20.8 Acute bronchitis due to other specified organisms (principal); I13.2 Hypertensive heart and chronic kidney disease with heart failure and with stage 5 chronic kidney disease, or end stage renal disease; N18.6 End stage renal disease; I50.42 Chronic combined systolic (congestive) and diastolic (congestive) heart failure; J44.9 Chronic obstructive pulmonary disease, unspecified; I48.0 Paroxysmal atrial fibrillation; I42.9 Cardiomyopathy, unspecified; E11.22 Type 2 diabetes mellitus with diabetic chronic kidney disease; E11.42 Type 2 diabetes mellitus with diabetic polyneuropathy; Z79.4 Long term (current) use of insulin; R11.2 Nausea with vomiting, unspecified; I25.10 Atherosclerotic heart disease of native coronary artery without angina pectoris; E78.00 Pure hypercholesterolemia, unspecified; I25.2 Old myocardial infarction; Z11.52 Encounter for screening for COVID-19; Z79.82 Long term (current) use of aspirin; Z79.85 Long-term (current) use of injectable non-insulin antidiabetic drugs; Z79.899 Other long term (current) drug therapy
CPT/HCPCS: 71046; 94640; 99282

== ENCOUNTER 2024-06-22 18:01 | Inpatient (IN) | payer OTHER, MEDICARE, SELFPAY ==
[2024-06-22 18:04] VITALS: BP 142/103; PULSE 128; RESP 22; TEMP 36.2; O2SAT 100
--- NOTE | 2024-06-22 18:09 | EKG12_ITS ---
Test Reason : CP Blood Pressure : */* mmHG Vent. Rate : 126 BPM Atrial Rate : 126 BPM P-R Int : 134 ms QRS Dur : 122 ms QT Int : 334 ms P-R-T Axes : 55 -22 144 degrees QTcB Int : 483 ms Sinus tachycardia Non-specific intra-ventricular conduction delay NSST TW CHANGES Abnormal ECG Confirmed by Storm Arita ([id number]), publishing editor JEF MATIAS ([id number]) on 06/23/2024 10:35:02 AM Referred By: Massimo Mancera Confirmed By: Storm Arita
--- NOTE | 2024-06-22 18:10 | EDS_ITS ---
HPI <KAMINI Connelly - Last Filed: 06/22/24 20:53> History of Present Illness Chief Complaint: Chest Pain Narrative Narrative: 54-year-old male with PMH of HTN, DM2, CAD with stents, ESRD on HD MWF has had flulike symptoms for the last 4 days mainly with cough and shortness of breath. He was seen in our emergency room yesterday and had a negative chest x-ray. He was prescribed an albuterol inhaler and prednisone burst. He states he vomited 4 times yesterday. He woke up from a nap around 3:30 PM with sharp midsternal chest pain that radiates to his left arm. He states his shortness of breath is not any worse than it has been a week. PFS <KAMINI Connelly - Last Filed: 06/22/24 20:53> [facility] Medical History Non-ST elevation TX (NSTEMI) Atrial flutter with rapid ventricular response Chest pain Paroxysmal atrial fibrillation Cardiomyopathy NSTEMI, initial episode of care Kidney disease Congestive heart failure (CHF) Anxiety Atrial fibrillation Chest pain Non-ST elevation TX (NSTEMI) Atrial flutter Dialysis patient CPAP (continuous positive airway pressure) dependence Pneumonia due to COVID-19 virus Myocardial infarct VERÓNICA (obstructive sleep apnea) Arteriosclerotic cardiovascular disease Dyslipidemia Elevated troponin ESRD on dialysis Wears glasses Wears partial dentures Insulin dependent diabetes mellitus Diabetes High cholesterol Non-smoker COPD (chronic obstructive pulmonary disease) Sleep apnea History of stress test History of echocardiogram Leg cramps Hypertension Cardiology follow-up encounter History of CHF (congestive heart failure) Fistula Hypotension Degenerative disc disease, cervical Diabetes mellitus, type II, insulin dependent Diabetic polyneuropathy (04/2017) GERD (gastroesophageal reflux disease) Chronic kidney disease with end stage renal failure on dialysis Non-ischemic cardiomyopathy Essential (primary) hypertension Syncope (07/2018) Problem with dialysis access Anemia of chronic renal failure, stage 4 (severe) Demand ischemia Morbid obesity Systolic and diastolic CHF, acute Elevated troponin Home Medications ?Medication ?Instructions ?Recorded ?Last Taken ?Type blood-glucose meter (FreeStyle #1 ea 12/22/19 Unknown Rx Dixon Lite kit) lancets 28 gauge (FreeStyle #100 ea 12/22/19 Unknown R x Lancets) pen needle, diabetic 32 gauge x #400 ea 12/22/19 Unkno wn Rx (BD Ultra-Fine China Pen Needle) albuterol sulfate 90 mcg/actuation 2 puff inhalation Q 6H PRN 07/26/21 01/21/23 History aerosol inhaler Shortness Of Breath Or Wheez ing atorvastatin 80 mg tablet 80 mg PO QHS CHOLESTEROL 02/21/24 History ezetimibe 10 mg tablet 10 mg PO DAILY HIGH CHOLESTE ROL 07/26/21 02/21/24 History sucroferric oxyhydroxide 500 mg 1,500 mg PO TID KIDNEY HEALTH 02/20/22 02/21/24 History chewable tablet (Velphoro) insulin aspart U-100 100 unit/mL 15 unit subcut .COMPL EX BLOOD SUGAR 01/22/23 02/21/24 History (3 mL) subcutaneous pen (Novolog FlexPen U-100 Insulin aspart) lanthanum 1,000 mg chewable tablet 3,000 mg PO TIDCM f or kidneys 01/22/23 02/21/24 History sertraline 50 mg tablet 50 mg PO DAILY ANTI DEPRESSA NT 01/22/23 02/21/24 History trazodone 50 mg tablet 50 mg PO QHS SLEEP 01/22/23 02/20/24 History vitamin B complex-vitamin C-folic 1 tab PO DAILY VITAM IN 01/22/23 02/21/24 History acid 0.8 mg tablet (Leonela-Herbie) dulaglutide 0.75 mg/0.5 mL 0.75 mg subcut QWEEK diabet es 04/10/23 02/16/24 History subcutaneous pen injector (Trulicity) cinacalcet 60 mg tablet 120 mg PO DAILY dialysis 09/2002/21/24 History gabapentin 300 mg capsule 300 mg PO QHS PAIN 05/04/23 02/20/24 History nitroglycerin 0.4 mg sublingual 0.4 mg buccal Q5M PRN chest pain 05/04/23 Unknown History tablet cholecalciferol (vitamin D3) 1,250 50,000 unit PO QWEE K SUPPLEMENT 06/07/23 02/21/24 History mcg (50,000 unit) capsule nifedipine 60 mg tablet,extended 60 mg PO DAILY blood pressure 06/07/23 10/08/23 History release aspirin 81 mg tablet,delayed 81 mg PO DAILY HEART 01/2902/21/24 History release buspirone 15 mg tablet 15 mg PO BID mental health 1 02/21/24 History insulin degludec 100 unit/mL (3 41 unit subcut QHS DM 02/21/24 02/21/24 History mL) subcutaneous pen (Tresiba FlexTouch U-100 insulin) lansoprazole 30 mg capsule,delayed 30 mg PO BID GERD 1 02/21/24 History release furosemide 40 mg tablet 40 mg PO DAILY diuretic 03/31 07/21 Unknown History metoprolol succinate 50 mg 100 mg (2 x 50 mg) PO BID # 120 tabs 04/21/24 Unknown Rx tablet,extended release 24 hr sacubitril 49 mg-valsartan 51 mg 1 tab PO BID heart Unknown History tablet (Entresto) ticagrelor 90 mg tablet (Brilinta) 90 mg PO BID anti p latelet 04/21/24 Unknown History ondansetron 8 mg disintegrating 8 mg PO Q8H PRN nausea and 05/29/24 Unknown Rx tablet vomiting #15 tabs albuterol sulfate 90 mcg/actuation 1 - 2 puff inhalati on Q4H PRN PRN 06/21/24 Unknown Rx aerosol inhaler (Ventolin HFA) Wheezing #1 ea prednisone 20 mg tablet 40 mg (2 x 20 mg) PO DAILY 5 days 06/21/24 Unknown Rx #10 tabs Allergy/AdvReac Type Severity Reaction Status Date / Time liraglutide (From Victoza) Allergy Unknown unknown Verified 06/22/24 18:04 NSAIDS (Non-Steroidal AdvReac Severe Renal Verified 06/22/24 18:04 Anti-Inflamma failure BLANCA Inhibitors AdvReac Intermediate cough Verified 06/22/24 18:04 Family History Mother Hypertension Grandmother Aneurysm Other NSTEMI, initial episode of care Stented coronary artery Surgical History Stented coronary artery Hx of cardiac catheterization (~01/23/23) History of angioplasty of peripheral vessel (07/2021) Presence of surgically created arteriovenous shunt for hemodialysis (07/2017) Social History household members: spouse housing: house Smoking Status: Never smoker alcohol intake: never substance use type: does not use ROS <KAMINI Connelly - Last Filed: 06/22/24 20:53> ROS ED ROS Narrative Constitutional: Negative for fever, chills. CVS: Positive for chest pain. Respiratory: Positive for shortness of breath, cough. GI: Negative for abdominal pain. EXAM <KAMINI Connelly - Last Filed: 06/22/24 20:53> Physical Exam Narrative Exam Narrative: CONST: Morbidly obese male sitting in no acute distress. EYES: Normal inspection. NECK: Normal inspection. RESP: No respiratory distress, CTAB. CVS: Tachycardia with regular rhythm, no murmur, no gallop. SKIN: Color normal, no rash, warm, dry, intact. EXTREMITIES: Normal appearance, no pedal edema. NEURO: Alert and answering questions appropriately. PSYCH: Normal affect. Const Vital Signs: 06/22/24 18:04 06/22/24 18:51 06/22/24 19:03 Temperature 97.1 F L Temperature Source Oral Pulse Rate 128 H 127 H Respiratory Rate 22 H 20 H Respiratory Effort Normal Blood Pressure 142/103 H 120/93 H Blood Pressure Mean 116 102 Pulse Ox 100 95 Oxygen Delivery Method Room Air Room Air 06/22/24 20:07 06/22/24 21:00 06/22/24 22:00 Temperature Temperature Source Pulse Rate 123 H 118 H 118 H Respiratory Rate 19 H 17 20 H Respiratory Effort Blood Pressure 132/77 H 115/90 H 139/91 H Blood Pressure Mean 95 98 107 Pulse Ox 94 92 100 Oxygen Delivery Method Room Air Room Air Room Air 06/22/24 23:00 Temperature Temperature Source Pulse Rate 122 H Respiratory Rate 19 H Respiratory Effort Blood Pressure 134/94 H Blood Pressure Mean 107 Pulse Ox 100 Oxygen Delivery Method Room Air <Dr. Massimo Mancera DO - Last Filed: 06/22/24 23:12> Physical Exam Const Vital Signs: 06/22/24 18:04 06/22/24 18:51 06/22/24 19:03 Temperature 97.1 F L Temperature Source Oral Pulse Rate 128 H 127 H Respiratory Rate 22 H 20 H Respiratory Effort Normal Blood Pressure 142/103 H 120/93 H Blood Pressure Mean 116 102 Pulse Ox 100 95 Oxygen Delivery Method Room Air Room Air 06/22/24 20:07 06/22/24 21:00 06/22/24 22:00 Temperature Temperature Source Pulse Rate 123 H 118 H 118 H Respiratory Rate 19 H 17 20 H Respiratory Effort Blood Pressure 132/77 H 115/90 H 139/91 H Blood Pressure Mean 95 98 107 Pulse Ox 94 92 100 Oxygen Delivery Method Room Air Room Air Room Air 06/22/24 23:00 Temperature Temperature Source Pulse Rate 122 H Respiratory Rate 19 H Respiratory Effort Blood Pressure 134/94 H Blood Pressure Mean 107 Pulse Ox 100 Oxygen Delivery Method Room Air MDM <KAMINI Connelly - Last Filed: 06/22/24 20:53> [facility] Narrative Medical decision making narrative: Differential: Viral illness, pneumonia, ACS, unlikely PE as he is anticoagulated 54-year-old male has had 4 days of cough and dyspnea and around 3:30 PM developed sharp midsternal chest pain radiating to his left arm. He appears well and nontoxic. BP is 142/103, HR 128, RR 22, 100% on room air. Afebrile. Other than sinus tachycardia his exam is benign. EKG shows ST depressions in l ateral leads which could be rate related. He also has T wave inversions in 1 and aVL. It looks like 1 and aVL had flat T waves in the past. Troponin is 2372. This is consistent with NSTEMI. He took nitro x 2 prior to arrival. He was given IV morphine, Zofran, and aspirin 325 mg here. After I discussed with the hosiery bagger Dr. Mejia he recommended IV heparin and bolus. Since his prior cardiac catheterization showed occlusive disease in the proximal circumflex that was a difficult location to intervene here he was transferred to [facility] in the past so transfer is recommended again. I discussed with [facility] transfer line and hospitalist Dr. Headley who accepted the patient and he is awaiting a bed assignment. External records reviewed: Discharge summary 02/26/2024 cardiac catheterization showed occlusive disease of the proximal circumflex that was felt to be an area that was too difficult to intervene here so patient was transferred to [facility] in [place]. Lab Data Attestation: I reviewed the patient's lab results. Labs: Laboratory Results - last 24 hr 06/22/24 06/22/24 06/22/24 18:15 19:28 20:36 WBC 10.0 RBC 3.82 L Hgb 11.0 L Hct 34.5 L MCV 90.3 MCH 28.8 MCHC 31.9 L RDW Std Deviation 55.9 H RDW Coeff of Kyle 17.9 H Plt Count 282 MPV 9.8 Immature Gran % (Auto) 0.600 Neut % (Auto) 83.6 H Lymph % (Auto) 7.4 L [place] % (Auto) 7.5 Eos % (Auto) 0.7 Baso % (Auto) 0.2 Absolute Neuts (auto) 8.4 H Absolute Lymphs (auto) 0.74 L Nucleated RBC % 0.2 PT 17.0 H INR 1.4 APTT 28.9 Sodium 133 L Potassium 5.0 Chloride 90 L Carbon Dioxide 25.0 Anion Gap 18 H BUN 67 H Creatinine 10.70 H* Est GFR (MDRD) Af Amer 7 L Est GFR (MDRD) Non-Af 5 L BUN/Creatinine Ratio 6.3 L Glucose 330 H Calcium 10.2 H Troponin I High Sens 2372 H* 2704 H* Radiography Diagnostic Testing: Clinical Impression(s) from Imaging Studies Chest X-Ray 06/22/24 18:30 IMPRESSION: Cardiomegaly without a focal airspace abnormality. Reading Location: [facility] attending interpretation of 1 view chest x-ray shows cardiomegaly, no acute infiltrate. EKG Initial EKG: Attestation: I personally reviewed and interpreted this EKG as follows: Interpretation: No Acute Injury Pattern and Sinus Tachycardia Comments: Sinus tachycardia at 126 bpm <Dr. Massimo Mancera, DO - Last Filed: 06/22/24 23:12> [facility] MDM Narrative Medical decision making narrative: Differential: Viral illness, pneumonia, ACS, unlikely PE as he is anticoagulated 54-year-old male has had 4 days of cough and dyspnea and around 3:30 PM developed sharp midsternal chest pain radiating to his left arm. He appears well and nontoxic. BP is 142/103, HR 128, RR 22, 100% on room air. Afebrile. Other than sinus tachycardia his exam is benign. EKG shows ST depressions in lateral leads which could be rate related. He also has T wave inversions in 1 and aVL. It looks like 1 and aVL had flat T waves in the past. Troponin is 2372. This is consistent with NSTEMI. He took nitro x 2 prior to arrival. He was given IV morphine, Zofran, and aspirin 325 mg here. After I discussed with the hosiery bagger Dr. Mejia he recommended IV heparin and bolus. Since his prior cardiac catheterization showed occlusive disease in the proximal circumflex that was a difficult location to intervene here he was transferred to [facility] in the past so transfer is recommended again. I discussed with [facility] transfer line and hospitalist Dr. Headley who accepted the patient and he is awaiting a bed assignment. External records reviewed: Discharge summary 02/26/2024 cardiac catheterization showed occlusive disease of the proximal circumflex that was felt to be an area that was too difficult to intervene here so patient was transferred to [facility] in [place]. ED attending note: I evaluated the patient in conjunction with the SOURAV. I agree with his/her statements and above findings. I have personally performed a face to face assessment of the patient and have reviewed the SOURAV Note. I performed a substantive portion of the visit including all aspects of the following. I personally saw the patient performed chart review, physical exam, reviewed labs, imaging (if obtained), and formulated a treatment and management plan. Patient's chest x-ray was read reviewed personally by myself and showed no evidence of pneumonia, pneumothorax or pulmonary edema with history of cardiomegaly. Radiologist agrees my interpretation. This note was generated with Moodsnap dictation software. It may contain incorrect words, spelling, and punctuation that were not noted in review of the chart prior to signing. Lab Data Labs: Laboratory Results - last 24 hr 06/22/24 06/22/24 06/22/24 18:15 19:28 20:36 WBC 10.0 RBC 3.82 L Hgb 11.0 L Hct 34.5 L MCV 90.3 MCH 28.8 MCHC 31.9 L RDW Std Deviation 55.9 H RDW Coeff of Kyle 17.9 H Plt Count 282 MPV 9.8 Immature Gran % (Auto) 0.600 Neut % (Auto) 83.6 H Lymph % (Auto) 7.4 L [place] % (Auto) 7.5 Eos % (Auto) 0.7 Baso % (Auto) 0.2 Absolute Neuts (auto) 8.4 H Absolute Lymphs (auto) 0.74 L Nucleated RBC % 0.2 PT 17.0 H INR 1.4 APTT 28.9 Sodium 133 L Potassium 5.0 Chloride 90 L Carbon Dioxide 25.0 Anion Gap 18 H BUN 67 H Creatinine 10.70 H* Est GFR (MDRD) Af Amer 7 L Est GFR (MDRD) Non-Af 5 L BUN/Creatinine Ratio 6.3 L Glucose 330 H Calcium 10.2 H Troponin I High Sens 2372 H* 2704 H* Radiography Diagnostic Testing: Clinical Impression(s) from Imaging Studies Chest X-Ray 06/22/24 18:30 IMPRESSION: Cardiomegaly without a focal airspace abnormality. [facility] T[facility] Chief Complaint: Chest Pain ED Midlevel Provider: Monique Stanley ED Provider: Massimo Mancera Dx/Rx/DC Orders Clinical Impression: Acute non-ST elevation myocardial infarction (NSTEMI), ESRD on dialysis, Acute URI Prescriptions: No Action (DME) blood-glucose meter [FreeStyle Dixon Lite] Kit See Rx Instructions .ROUTE .MEDSUPPLY Qty: 1 0RF Rx Instructions: As directed (DME) pen needle, diabetic [BD Ultra-Fine China Pen Needle] 32 gauge x 5/32 needle See Rx Instructions .ROUTE .MEDSUPPLY Qty: 400 1RF Rx Instructions: 4 times daily (DME) lancets [FreeStyle Lancets] 28 gauge misc See Rx Instructions .ROUTE .MEDSUPPLY Qty: 100 5RF Rx Instructions: As directed atorvastatin 80 mg tablet 80 mg PO QHS Patient Comments: PT STATES HAS BEEN TAKING IN AM ezetimibe 10 mg tablet 10 mg PO DAILY albuterol sulfate 90 mcg/actuation HFA aerosol inhaler 2 puff inhalation Q6H PRN (Reason: Shortness Of Breath Or Wheezing) cholecalciferol (vitamin D3) 1,250 mcg (50,000 unit) capsule 50,000 unit PO QWEEK Patient Comments: take 1 capsule by mouth ONE TIME A WEEK takes it on Tuesdays nifedipine 60 mg tablet extended release 60 mg PO DAILY Velphoro 500 mg tablet,chewable 1,500 mg PO TID Patient Comments: CHEW & SWALLOW 3 TABLETS THREE TIMES A DAY WITH MEALS Trulicity 0.75 mg/0.5 mL pen injector 0.75 mg SUBCUT QWEEK Patient Comments: Inject 0.75 mg subcutaneously one time a week. Inject dose once per week. Discard Pen After Leonela-Herbie 0.8 mg tablet 1 tab PO DAILY trazodone 50 mg tablet 50 mg PO QHS sertraline 50 mg tablet 50 mg PO DAILY lanthanum 1,000 mg tablet,chewable 3,000 mg PO TIDCM insulin aspart U-100 [Novolog FlexPen U-100 Insulin] 100 unit/mL (3 mL) insulin pen 15 unit SC .COMPLEX Rx Instructions: 17 units subcutaneously TID CM; 8 units with snacks cinacalcet 60 mg tablet 120 mg PO DAILY Patient Comments: TAKE 2 TABLETS BY MOUTH DAILY gabapentin 300 mg capsule 300 mg PO QHS Patient Comments: Take 1 capsule by mouth daily at bedtime nitroglycerin 0.4 mg tablet, sublingual 0.4 mg buccal Q5M PRN (Reason: chest pain) aspirin 81 mg tablet,delayed release (DR/EC) 81 mg PO DAILY lansoprazole 30 mg capsule,delayed release(DR/EC) 30 mg PO BID buspirone 15 mg tablet 15 mg PO BID insulin degludec [Tresiba FlexTouch U-100] 100 unit/mL (3 mL) insulin pen 41 unit subcut QHS ondansetron 8 mg tablet,disintegrating 8 mg PO Q8H PRN (Reason: nausea and vomiting) Qty: 15 0RF albuterol sulfate [Ventolin HFA] 90 mcg/actuation HFA aerosol inhaler 1 - 2 puff inhalation Q4H PRN PRN (Reason: Wheezing) Qty: 1 0RF prednisone 20 mg tablet 40 mg PO DAILY 5 Days Qty: 10 0RF furosemide 40 mg tablet 40 mg PO DAILY Brilinta 90 mg tablet 90 mg PO BID sacubitril-valsartan [Entresto] 49-51 mg tablet 1 tab PO BID metoprolol succinate 50 mg Tablet Extended Release 24 Hr 100 mg PO BID Qty: 120 0RF Primary Care Provider: Norris Mcqueen Referrals: Norris Mcqueen MD [Primary Care Provider] - Print Language: Kazakh
[2024-06-22 18:27] LABS: Absolute Lymphocyte Count 0.74 X10^3/uL (0.83-4.51); Absolute Neutrophil Count 8.4 X10^3/uL (2.0-7.7); Basophil# 0.02 X10^3/uL; Basophil% 0.2 % (0-1); Eosinophil# 0.07 X10^3/uL; Eosinophils% 0.7 % (0-5); Hematocrit 34.5 % (40-54); Lymphocyte # 0.74 X10^3/ul (0.83-4.51); Lymphocyte % 7.4 % (19-41); Mean Corp Hgb Conc 31.9 g/dL (32-36); Mean Corpuscular Hgb 28.8 pg (27.0-32.0); Mean Corpuscular Volume 90.3 fL (80-94); Mean Platelet Vol. 9.8 fl (6.2-12.0); Monocyte# 0.75 X10^3/uL; Monocyte% 7.5 % (0-10); NRBC Flagged by Analyzer 0.2 % (0-5); Neutrophil % 83.6 % (47-70); Platelet Count 282 K/mm3 (150-450); RBC Distribution Width CV 17.9 % (11.6-14.6); RBC Distribution Width SD 55.9 fl (35.1-43.9); Red Blood Count 3.82 M/mm3 (4.6-6.2)
--- NOTE | 2024-06-22 18:30 | RAD_ITS ---
PROCEDURE: Chest radiograph REASON FOR EXAM: Chest pain TECHNIQUE: Frontal view of the chest COMPARISON: 06/21/2024 FINDINGS: Mild cardiomegaly. No focal consolidation, sizeable pleural effusion or pneumothorax. RAD/Chest 1 View (Portable) IMPRESSION: Cardiomegaly without a focal airspace abnormality. Reading Location: [facility]
[2024-06-22] MEDS: Morphine 4 MG/ML Syringe IV ×2 (18:35→19:12)
[2024-06-22] MEDS: Ondansetron 4 MG/2 ML Vial IV (18:35)
[2024-06-22 18:52] LABS: Anion Gap 18 (5-15); BUN 67 mg/dL (7-18); BUN/Creat Ratio 6.3 RATIO (10-20); Calcium,Total 10.2 mg/dL (8.5-10.1); Chloride 90 mmol/L (98-107); EST Glomerular Filtration Rate 5 mL/min (>60); Est Glom Filt Rate - Afr Amer 7 mL/min (>60); Glucose 330 mg/dL (74-106); Sodium Level 133 mmol/L (136-145); Troponin-I HS 2372 pg/mL (3.0-78.0)
[2024-06-22] MEDS: Aspirin 325 MG Tablet PO (19:00)
[2024-06-22] MEDS: 0.9% Normal Saline (500mL Bag) 500 ML 999 ML IV (19:00)
[2024-06-22 19:01] VITALS: BMI 45.1
[2024-06-22 19:03] VITALS: BP 120/93; PULSE 127; RESP 20; O2SAT 95
[2024-06-22] MEDS: Heparin Injection (Vial) 5,000 UNIT/ML VIAL 4000 UNIT IV (19:30)
[2024-06-22] MEDS: HEPARIN/D5w 25,000 UNITS 25,000 UNITS/250 ML IV.SOLN. 10 UNITS CONT INF (19:36)
[2024-06-22 19:49] LABS: International Normalized Ratio 1.4
[2024-06-22 19:50] LABS: Partial Thromboplast Time 28.9 Seconds (24.1-36.2)
[2024-06-22 20:07] VITALS: BP 132/77; PULSE 123; RESP 19; O2SAT 94
[2024-06-22 21:00] VITALS: BP 115/90; PULSE 118; RESP 17; O2SAT 92
[2024-06-22 21:17] LABS: Troponin-I HS 2704 pg/mL (3.0-78.0)
--- NOTE | 2024-06-22 21:47 | CM.ED ---
Social Work: HPOA validated; Senior Engineer verified in patient record that was scanned into the legal documents. Amalia Abdullahi, FAMILY LAW MEDIATOR, DEALER CARD ROOM
[2024-06-22 22:00] VITALS: BP 139/91; PULSE 118; RESP 20; O2SAT 100
[2024-06-22 23:00] VITALS: BP 134/94; PULSE 122; RESP 19; O2SAT 100
[2024-06-23] VITALS (38 sets, daily range): BP systolic 71–255; BP diastolic 50–122; PULSE 13–122; RESP 12–114; TEMP 36.1–37; O2SAT 94–100; BMI 41.5; BMI 41.7; BMI 41.2
--- NOTE | 2024-06-23 01:57 | ED.RN ---
I CALLED [facility] @ 2653 TO GET AN UPDATE ON BED, THEY SAID NO BED TONIGHT, POSSIBLY TOMORROW. DEPENDING ON DISCHARGES
--- NOTE | 2024-06-23 02:29 | PCM.HP.STD ---
HPI - General General Date of Admission: 06/23/24 Date of Service: 06/23/24 Chief Complaint: Chest pain. HPI Narrative The patient is a 54 y/o M w/ PMHx: HTN, HLD, Anxiety and Depression, Diabetes mellitus type II with chronic neuropathy, ESRD on HD MWF, GERD, CAD status post PCI, PAD with history of peripheral PCI, COPD, VERÓNICA on CPAP nightly, PAF/flutter, HFrEF who presents to the [facility] ED initially on 06/22/2024 with history of upper respiratory flulike symptoms with congestion, rhinorrhea, mild headache, body aches and general fatigue malaise x 4 days with cough and dyspnea evaluated today previous in the emergency room with unremarkable chest x-ray at that time prescribed albuterol inhaler and prednisone burst however following this he had worsened status with fatigue, malaise, nausea and emesis with at least 4 bouts then awakening from a nap at approximately 3:30 PM on day of initial ED presentation with sharp midsternal chest discomfort radiating to his left upper extremity with associated dyspnea prompting ED return to be cautious. Workup in the ED included T98.1 Temporally, heart rate 90, BP 144/90, respiratory rate 18, 95% on room air with most recent repeat vital sign T97.1, heart rate 113, BP 111/93, respiratory rate 14, 9% on 3 L nasal cannula, CBC with WC 10, hemoglobin 11, MCV 90.3, platelet 282 with left shift and lymphopenia, unremarkable coags aside PT 17, BMP with sodium 133, chloride 90, anion gap 18, BUN/creatinine 67/10.70, GFR 5, glucose 330, calcium 10.2, troponin initial 2372 and repeat 2704, chest x-ray with cardiomegaly with no acute cardiopulmonary findings, EKG with ST depressions in the lateral leads with sinus tachycardia with additionally T wave inversions in 1 and aVL with noted 1 and aVL flat T waves in the past, rapid SARS COVID/influenza/RSV PCR negative. Given concern for NSTEMI patient was administered nitroglycerin sublingual x 2 previous to arrival per EMS. In the ED he was administered full-strength aspirin therapy, Zofran and IV morphine. Patient was discussed with cardiology who recommended IV heparin and bolus be initiated. Given patient's significant previous cardiac catheterization demonstrating occlusive disease in the proximal circumflex difficult to intervene recommended transfer to [facility] where he had been evaluated previously. Patient was accepted at [facility] by hospitalist physician Dr. Headley. Given significant weight for transfer bed ED requested patient be temporarily admitted to [facility] while awaiting tertiary facility bed placement. Upon reevaluation in the ED prior to admission patient notes currently chest pain resolved. [facility] Medical History Non-ST elevation MD (NSTEMI) Atrial flutter with rapid ventricular response Chest pain Paroxysmal atrial fibrillation Cardiomyopathy NSTEMI, initial episode of care Kidney disease Congestive heart failure (CHF) Anxiety Atrial fibrillation Chest pain Non-ST elevation MD (NSTEMI) Atrial flutter Dialysis patient CPAP (continuous positive airway pressure) dependence Pneumonia due to COVID-19 virus Myocardial infarct VERÓNICA (obstructive sleep apnea) Arteriosclerotic cardiovascular disease Dyslipidemia Elevated troponin ESRD on dialysis Wears glasses Wears partial dentures Insulin dependent diabetes mellitus Diabetes High cholesterol Non-smoker COPD (chronic obstructive pulmonary disease) Sleep apnea History of stress test History of echocardiogram Leg cramps Hypertension Cardiology follow-up encounter History of CHF (congestive heart failure) Fistula Hypotension Degenerative disc disease, cervical Diabetes mellitus, type II, insulin dependent Diabetic polyneuropathy (04/2017) GERD (gastroesophageal reflux disease) Chronic kidney disease with end stage renal failure on dialysis Non-ischemic cardiomyopathy Essential (primary) hypertension Syncope (07/2018) Problem with dialysis access Anemia of chronic renal failure, stage 4 (severe) Demand ischemia Morbid obesity Systolic and diastolic CHF, acute Elevated troponin Home Medications ?Medication ?Instructions ?Recorded ?Last Taken ?Type blood-glucose meter (FreeStyle #1 ea 12/22/19 Unknown Rx Hope Lite kit) lancets 28 gauge (FreeStyle #100 ea 12/22/19 Unknown Rx Lancets) pen needle, diabetic 32 gauge x #400 ea 12/22/19 Unknown Rx (BD Ultra-Fine China Pen Needle) albuterol sulfate 90 mcg/actuation 2 puff inhalation Q6H PRN 07/26/21 01/21/23 History aerosol inhaler Shortness Of Breath Or Wheezing atorvastatin 80 mg tablet 80 mg PO QHS CHOLESTEROL 07/26/21 02/21/24 History ezetimibe 10 mg tablet 10 mg PO DAILY HIGH CHOLESTEROL 07/26/21 02/21/24 History sucroferric oxyhydroxide 500 mg 1,500 mg PO TID KIDNEY HEALTH 02/20/22 02/21/24 History chewable tablet (Velphoro) insulin aspart U-100 100 unit/mL 15 unit subcut .COMPLEX BLOOD SUGAR 01/22/23 02/21/24 History (3 mL) subcutaneous pen (Novolog FlexPen U-100 Insulin aspart) lanthanum 1,000 mg chewable tablet 3,000 mg PO TIDCM for kidneys 01/22/23 02/21/24 History sertraline 50 mg tablet 50 mg PO DAILY ANTI DEPRESSANT 01/22/23 02/21/24 History trazodone 50 mg tablet 50 mg PO QHS SLEEP 01/22/23 02/20/24 History vitamin B complex-vitamin C-folic 1 tab PO DAILY VITAMIN 01/22/23 02/21/24 History acid 0.8 mg tablet (Leonela-Herbie) dulaglutide 0.75 mg/0.5 mL 0.75 mg subcut QWEEK diabetes 04/10/23 02/16/24 History subcutaneous pen injector (Trulicity) cinacalcet 60 mg tablet 120 mg PO DAILY dialysis 05/04/23 02/21/24 History gabapentin 300 mg capsule 300 mg PO QHS PAIN 05/04/23 02/20/24 History nitroglycerin 0.4 mg sublingual 0.4 mg buccal Q5M PRN chest pain 05/04/23 Unknown History tablet cholecalciferol (vitamin D3) 1,250 50,000 unit PO QWEEK SUPPLEMENT 06/07/23 02/21/24 History mcg (50,000 unit) capsule nifedipine 60 mg tablet,extended 60 mg PO DAILY blood pressure 06/07/23 10/08/23 History release aspirin 81 mg tablet,delayed 81 mg PO DAILY HEART 02/21/24 02/21/24 History release buspirone 15 mg tablet 15 mg PO BID mental health 02/21/24 02/21/24 History insulin degludec 100 unit/mL (3 41 unit subcut QHS DM 02/21/24 02/21/24 History mL) subcutaneous pen (Tresiba FlexTouch U-100 insulin) lansoprazole 30 mg capsule,delayed 30 mg PO BID GERD 02/21/24 02/21/24 History release furosemide 40 mg tablet 40 mg PO DAILY diuretic 04/21/24 Unknown History metoprolol succinate 50 mg 100 mg (2 x 50 mg) PO BID #120 tabs 04/21/24 Unknown Rx tablet,extended release 24 hr sacubitril 49 mg-valsartan 51 mg 1 tab PO BID heart 04/21/24 Unknown History tablet (Entresto) ticagrelor 90 mg tablet (Brilinta) 90 mg PO BID anti platelet 04/21/24 Unknown History ondansetron 8 mg disintegrating 8 mg PO Q8H PRN nausea and 05/29/24 Unknown Rx tablet vomiting #15 tabs albuterol sulfate 90 mcg/actuation 1 - 2 puff inhalation Q4H PRN PRN 06/21/24 Unknown Rx aerosol inhaler (Ventolin HFA) Wheezing #1 ea prednisone 20 mg tablet 40 mg (2 x 20 mg) PO DAILY 5 days 06/21/24 Unknown Rx #10 tabs Allergy/AdvReac Type Severity Reaction Status Date / Time liraglutide (From Victoza) Allergy Unknown unknown Verified 06/22/24 18:04 NSAIDS (Non-Steroidal AdvReac Severe Renal Verified 06/22/24 18:04 Anti-Inflamma failure BLANCA Inhibitors AdvReac Intermediate cough Verified 06/22/24 18:04 Family History Mother Hypertension Grandmother Aneurysm Other NSTEMI, initial episode of care Stented coronary artery Surgical History Stented coronary artery Hx of cardiac catheterization (~01/23/23) History of angioplasty of peripheral vessel (07/2021) Presence of surgically created arteriovenous shunt for hemodialysis (07/2017) Social History household members: spouse housing: house Smoking Status: Never smoker alcohol intake: never substance use type: does not use ROS ROS Narrative Admission Review of Systems: CONSTITUTIONAL: No weight loss, fever, chills, + weakness or fatigue. HEENT: + Congestion, rhinorrhea, mild headache. Eyes: No visual loss, blurred vision, double vision or yellow sclerae. Ears, Nose, Throat: No hearing loss, sneezing. SKIN: No rash or itching, lesions, wounds. CARDIOVASCULAR: + Chest pain. Palpitations, edema, orthopnea, syncopal events. RESPIRATORY: + Dyspnea, mild not markedly productive cough, occasional wheezing. No hemoptysis. GASTROINTESTINAL: No anorexia, nausea, vomiting or diarrhea, abdominal pain, melena, BRBPR. GENITOURINARY: No dysuria, frequency, urgency or retention. NEUROLOGICAL: + Mild headache. Dizziness, syncope, paralysis, ataxia, numbness or tingling in the extremities, focal weakness, change in bowel or bladder control, seizure. MUSCULOSKELETAL: + muscle, back pain, joint pain or stiffness. HEMATOLOGIC: + Chronic anemia, easy bleeding/bruising. LYMPHATICS: No enlarged nodes. No history of splenectomy. PSYCHIATRIC: + History of anxiety and depression. ENDOCRINOLOGIC: No reports of sweating, cold or heat intolerance. No polyuria or polydipsia. ALLERGIES: No history of asthma, hives, eczema or rhinitis. Vital Signs Vital Signs Vital Signs: 06/22/24 18:04 06/22/24 18:51 06/22/24 19:03 Temperature 97.1 F L Temperature Source Oral Pulse Rate 128 H 127 H Respiratory Rate 22 H 20 H Respiratory Effort Normal Blood Pressure 142/103 H 120/93 H Blood Pressure Mean 116 102 Pulse Ox 100 95 Oxygen Delivery Method Room Air Room Air Oxygen Flow Rate (L/min) 06/22/24 20:07 06/22/24 21:00 06/22/24 22:00 Temperature Temperature Source Pulse Rate 123 H 118 H 118 H Respiratory Rate 19 H 17 20 H Respiratory Effort Blood Pressure 132/77 H 115/90 H 139/91 H Blood Pressure Mean 95 98 107 Pulse Ox 94 92 100 Oxygen Delivery Method Room Air Room Air Room Air Oxygen Flow Rate (L/min) 06/22/24 23:00 06/23/24 00:00 06/23/24 01:00 Temperature Temperature Source Pulse Rate 122 H 117 H 116 H Respiratory Rate 19 H 12 13 Respiratory Effort Blood Pressure 134/94 H 123/93 H 120/96 H Blood Pressure Mean 107 103 104 Pulse Ox 100 100 100 Oxygen Delivery Method Room Air Room Air Nasal Cannula Oxygen Flow Rate (L/min) 3 06/23/24 02:00 Temperature Temperature Source Pulse Rate 13 L Respiratory Rate 114 H Respiratory Effort Blood Pressure 111/93 H Blood Pressure Mean 99 Pulse Ox 100 Oxygen Delivery Method Nasal Cannula Oxygen Flow Rate (L/min) 3 Weight Weight: 306 lb 0.026 oz Body Mass Index (BMI) 45.1 Physical Exam Narrative Physical Examination: General: Patient awoken more alert with discussion, oriented to self, place and recent events, remains cooperative but is fatigued, seated upright in the ED bed, notes currently chest pain is resolved. Skin: Normal color, normal turgor, no icterus, no cyanosis. HEENT: AT/NC, EOMI, PERRLA, mildly dry MM, thickened necks makes evaluation of carotid bruits and JVD difficult. Lungs: Diffusely diminished, greater bases, occasional end expiratory wheeze, no evidence of any distress, no rales or rhonchi. Heart: Mildly tachycardic with regular; no gallop, rub audible. Abdomen: Soft, morbidly obese, NTTP, distant BS, difficult to discern distention HSM given habitus. Extremities: No cyanosis, no clubbing, mild ankle to distal john edema, + left upper extremity thrill AVF. Neurological: Patient awoken more alert with discussion, oriented to self, place and recent events, remains cooperative but is fatigued, cognitive function intact; pupils equally reactive to light and accommodation, cranial nerves grossly normal, moving all 4 extremities, no focal deficits, strength mildly to moderately globally decreased. Psychiatric: Affect appears flat, fatigued, no acute evidence of depressive or anxiety feelings but does have underlying history. Results Lab / Micro Data 06/22/24 18:15 06/22/24 18:15 Labs: Laboratory Results - last 24 hr 06/22/24 18:15: WBC 10.0, RBC 3.82 L, Hgb 11.0 L, Hct 34.5 L, MCV 90.3, MCH 28.8, MCHC 31.9 L, RDW Std Deviation 55.9 H, RDW Coeff of Kyle 17.9 H, Plt Count 282, MPV 9.8, Immature Gran % (Auto) 0.600, Neut % (Auto) 83.6 H, Lymph % (Auto) 7.4 L, [place] % (Auto) 7.5, Eos % (Auto) 0.7, Baso % (Auto) 0.2, Absolute Neuts (auto) 8.4 H, Absolute Lymphs (auto) 0.74 L, Nucleated RBC % 0.2, Sodium 133 L, Potassium 5.0, Chloride 90 L, Carbon Dioxide 25.0, Anion Gap 18 H, BUN 67 H, Creatinine 10.70 H*, Est GFR (MDRD) Af Amer 7 L, Est GFR (MDRD) Non-Af 5 L, BUN/Creatinine Ratio 6.3 L, Glucose 330 H, Calcium 10.2 H, Troponin I High Sens 2372 H* 06/22/24 19:28: PT 17.0 H, INR 1.4, APTT 28.9 06/22/24 20:36: Troponin I High Sens 2704 H* Micro: Microbiology 06/22/24 18:41 Mucosa - Nose SARS-CoV-2, Influenza & RSV (PCR) - Final Imaging Radiology Impression Chest X-Ray 06/22/24 18:30 IMPRESSION: Cardiomegaly without a focal airspace abnormality. Reading Location: [facility] Assessment & Plan Assessment/Plan (1) Acute non-ST elevation myocardial infarction (NSTEMI): (2) Acute URI: PLAN: Plan The patient is a 54 y/o M w/ PMHx: HTN, HLD, Anxiety and Depression, Diabetes mellitus type II with chronic neuropathy, ESRD on HD MWF, GERD, CAD status post PCI, PAD with history of peripheral PCI, COPD, VERÓNICA on CPAP nightly, PAF/flutter, HFrEF who presents to the [facility] ED initially on 06/22/2024 with history of upper respiratory flulike symptoms x 4 days with cough and dyspnea evaluated today previous in the emergency room with unremarkable chest x-ray at that time prescribed albuterol inhaler and prednisone burst however following this he had worsened status with fatigue, malaise, nausea and emesis with at least 4 bouts then awakening from a nap at approximately 3:30 PM on day of initial ED presentation with sharp midsternal chest discomfort radiating to his left upper extremity with associated dyspnea prompting ED return to be cautious. #1. Chest Pain w/ Acute NSTEMI although complicated by chronically elevated troponins given underlying renal disease: Given there are no beds at tertiary facility [facility] where patient had recent evaluation and recommended transfer for cardiology in the interim will admit to PCU, will request cardiology involvement until transfer to tertiary bed is obtained, will continue heparin drip, magnesium level requested, continue medical management, ECHO requested in case bed weight prolonged. NG, morphine. #2. Suspected acute viral syndrome with resulting recent Acute on Chronic COPD exacerbation: Repeat CXR w/ chronic changes, CBC not markedly elevated but does have left shift, will maintain on ATC budesonide therapy, PRN albuterol, continue prednisone burst, HOB, IS parameters, will obtain sputum Cx, respiratory viral panel, procalcitonin, will hold on immediately abx therapy but low threshold to add if appropriate. #3. Diabetes mellitus type II with mild anion gap elevation: With chronic neuropathy hold oral home regimen, continue home insulin regimen, ADA diet, accu checks w/ ISS, continue home gabapentin regimen. Currently repeat BMP and acetone level requested and pending upon admission. Given presentation low suspicion for DKA but has been on oral prednisone therapy. #4. CAD, PAD: Status post previous PCI coronary angioplasty and peripherally, will continue aspirin, relented, statin, Entresto, metoprolol home regimen. #5. PAF/flutter: We will continue patient on metoprolol regimen, not chronically anticoagulated, on dual antiplatelet therapy as noted. #6. Most recent echocardiogram 10/09/2023 with normal LV size, severe concentric LVH, LVEF 45% with moderately dilated RV, will judiciously hydrate only as needed especially given dialysis needs, will continue aspirin, Brilinta, statin, Lasix, metoprolol, Entresto home regimen. #7. Anxiety and depression: We will continue patient home trazodone, BuSpar and sertraline regimen. #8. ESRD: Patient with ongoing dialysis Sunday, given unclear timeline of transfer will request nephrology involvement for planned dialysis. Continue patient home Velphoro and Cinacalcet regimen. #9. Hypertension: Continue home regimen including Lasix, metoprolol, nifedipine, Entresto, PRN hydralazine. #10. Hyperlipidemia: Continue home statin regimen. AM FLP. #11. Chronic normocytic anemia/AOCD: Admission CBC with hemoglobin 11, MCV 90.3, baseline hemoglobin similar, continue to trend. #12. GERD: Continue patient on PPI. #13. VERÓNICA: CPAP nightly. #14. DVT prophylaxis: Continue heparin drip. #15. CODE status: Patient HCPOA is his and living will is currently in place. Discussed CODE status at length including difference between FULL code, DNR-CCA and DNR-CC status. Following discussions about the differences in these status, requested Full Code status. Advanced Care Planning Face to Face Time: 16 minutes. Charges/Coding Visit Charges Inpatient E&M: 33475 Init Hosp L3 Procedures Hospitalists Procedures: 72889 Advncd Care Plan 30 Min
[2024-06-23 03:23] LABS: Anion Gap 16 (5-15); BUN 73 mg/dL (7-18); BUN/Creat Ratio 6.7 RATIO (10-20); Calcium,Total 9.2 mg/dL (8.5-10.1); Chloride 91 mmol/L (98-107); EST Glomerular Filtration Rate 5 mL/min (>60); Est Glom Filt Rate - Afr Amer 6 mL/min (>60); Estimated Creatinine Clearance 10.73 ml/min; Glucose 278 mg/dL (74-106); Magnesium 2.8 mg/dL (1.6-2.6); Potassium 6.1 mmol/L (3.5-5.1); Sodium Level 133 mmol/L (136-145)
[2024-06-23 03:25] LABS: Procalcitonin 0.93 ng/mL (0.00-0.09)
--- NOTE | 2024-06-23 03:49 | ECHOCS_ITS ---
Reason For Study Reason For Study: NSTEMI Procedure This was a 2D Doppler, Color Flow transthoracic echocardiogram. The study was technically difficult. Contrast injection was performed. Echo done with patient sitting upright due to SOB and nausea. Exam performed portable in patient room. Left Ventricle Mildly dilated left ventricle. The estimated ejection fraction is 15 %. There is evidence of diastolic dysfunction. There is severe global hypokinesis of the left ventricle. Right Ventricle RV is not well-visualized. It does appear to be dilated. Unable to comment on RV function. Atria There is mild biatrial dilatation. No doppler evidence for ASD. Mitral Valve There is moderate mitral annular calcification. Calcification noted in this of mitral apparatus. There is no mitral valve stenosis. Mild (1+) mitral valve insufficiency. Tricuspid Valve There is no tricuspid stenosis. Moderate (2+) tricuspid valve insufficiency. Pulmonary artery systolic pressure is 45-50 mmHg. Aortic Valve Trisinus/trileaflet aortic valve. There is no aortic stenosis. No aortic valve insufficiency. Pulmonic Valve There is no pulmonic valvular stenosis. No pulmonic valve insufficiency. Great Vessels The aortic root is not well visualized. Pericardium/Pleural No pericardial effusion. Medication Diluted definity 2ml given slow IV push to enhance endocardial definition. MMode/2D Measurements & Calculations LVIDd: 5.9 cm IVSd: 0.90 cm Ao root diam: 3.2 cm LVIDs: 5.3 cm LVPWd: 1.1 cm RVDd: 5.8 cm FS: 8.8 % LAV(MOD-bp): 85.8 ml LVAd ap4: 50.9 cm2 SV(MOD-sp4): 39.2 ml LAV(MOD-bp) Indexed: 35.0 ml/m2 LVLd ap4: 9.6 cm SI(MOD-sp4): 16.0 ml/m2 LAV(MOD-sp2): 70.7 ml EDV(MOD-sp4): 223.3 ml LAV(MOD-sp4): 78.7 ml EDV(sp4-el): 230.2 ml LVAs ap4: 44.7 cm2 LVLs ap4: 9.2 cm ESV(MOD-sp4): 184.1 ml ESV(sp4-el): 185.5 ml EF(MOD-sp4): 17.6 % EF(sp4-el): 19.4 % SV(sp4-el): 44.7 ml LA A4 area: 26.6 cm2 LA dimension(2D): 4.2 cm RA A4 area: 24.8 cm2 Doppler Measurements & Calculations MV E max john: 87.6 cm/sec Lat Peak E' John: 7.0 cm/sec Med Peak E' John: 7.2 cm/sec E/E' lat: 12.5 E/E' med: 12.2 MV V2 max: 103.1 cm/sec Ao V2 max: 81.2 cm/sec LV V1 max: 49.9 cm/sec MV max P.3 mmHg Ao max P.6 mmHg LV V1 max P.00 mmHg MV V2 mean: 71.0 cm/sec LV V1 mean P.60 mmHg MV mean P.3 mmHg LV V1 mean: 36.4 cm/sec MV V2 VTI: 10.0 cm LV V1 VTI: 7.9 cm MR max john: 448.1 cm/sec TR max john: 308.5 cm/sec MR max P.3 mmHg TR max P.1 mmHg MR mean john: 314.4 cm/sec MR mean P.5 mmHg MR VTI: 117.9 cm ECHO/Echo Complete W/ Contrast Interpretation Summary Mildly dilated left ventricle. The estimated ejection fraction is 15 %. There is severe global hypokinesis of the left ventricle. There is evidence of diastolic dysfunction. There is mild biatrial dilatation. Mild (1+) mitral valve insufficiency. Ordering Physician: Nery Adair Referring Physician: Massimo Mancera Performed By: Reza Groves RCS
--- NOTE | 2024-06-23 04:17 | EKG12_ITS ---
Test Reason : cp admit Blood Pressure : */* mmHG Vent. Rate : 114 BPM Atrial Rate : 114 BPM P-R Int : 170 ms QRS Dur : 106 ms QT Int : 386 ms P-R-T Axes : 12 -23 152 degrees QTcB Int : 532 ms Sinus tachycardia Possible Left atrial enlargement ST & T wave abnormality, consider lateral ischemia Prolonged QT Abnormal ECG Confirmed by Storm Arita ([id number]), television news video editor JEF MATIAS ([id number]) on 06/23/2024 10:37:53 AM Referred By: Massimo Mancera Confirmed By: Storm Arita
[2024-06-23] MEDS: Sodium Polystyrene Sulfonate 15 GM/60 ML UDC PO (04:36)
[2024-06-23] MEDS: Insulin Lispro 10 UNIT in Syringe 0 ML 6 UNIT IV (04:36)
[2024-06-23] MEDS: 0.9% Saline Lock 10 ML Syringe IV ×2 (04:40→18:38)
[2024-06-23] MEDS: Calcium Gluconate 1 GM/10 ML Vial IVP (04:40)
[2024-06-23] MEDS: Dextrose 10%-Water 250 ML 999 ML IV (04:40)
[2024-06-23 05:52] LABS: Absolute Lymphocyte Count 0.52 X10^3/uL (0.83-4.51); Absolute Neutrophil Count 7.9 X10^3/uL (2.0-7.7); Basophil# 0.02 X10^3/uL; Basophil% 0.2 % (0-1); Eosinophil# 0.01 X10^3/uL; Eosinophils% 0.1 % (0-5); Hematocrit 31.3 % (40-54); Lymphocyte # 0.52 X10^3/ul (0.83-4.51); Lymphocyte % 5.7 % (19-41); Mean Corp Hgb Conc 31.9 g/dL (32-36); Mean Corpuscular Hgb 28.9 pg (27.0-32.0); Mean Corpuscular Volume 90.5 fL (80-94); Mean Platelet Vol. 10.2 fl (6.2-12.0); Monocyte# 0.65 X10^3/uL; Monocyte% 7.1 % (0-10); NRBC Flagged by Analyzer 0.2 % (0-5); Neutrophil # 7.89 X10^3/uL (2.7-7.7); Neutrophil % 85.9 % (47-70); POSITIVE DIFFERENTIAL YES; Platelet Count 222 K/mm3 (150-450); RBC Distribution Width CV 17.4 % (11.6-14.6); RBC Distribution Width SD 55.9 fl (35.1-43.9); Red Blood Count 3.46 M/mm3 (4.6-6.2); White Blood Count 9.2 K/mm3 (4.4-11.0)
[2024-06-23 05:59] LABS: Partial Thromboplast Time 36.7 Seconds (24.1-36.2)
[2024-06-23] MEDS: HEPARIN/D5w 25,000 UNITS 25,000 UNITS/250 ML IV.SOLN. 12 UNITS CONT INF (06:19)
[2024-06-23] MEDS: Heparin Injection (Vial) 5,000 UNIT/ML VIAL IV ×3 (06:20→20:42)
--- NOTE | 2024-06-23 07:03 | CPS ---
COMPLIANCE REVIEW SPECIALIST held Albuterol concentrate TX due to Patient HR 120, Dr. Adair notified
[2024-06-23 07:14] LABS: AST(SGOT) 95 U/L (15-37); Alanine Aminotransfer ALT/SGPT 38 U/L (16-61); Albumin, Serum 3.8 g/dL (3.2-5.0); Alkaline Phosphatase 110 U/L (45-117); Anion Gap 18 (5-15); BUN 72 mg/dL (7-18); BUN/Creat Ratio 6.5 RATIO (10-20); Calcium,Total 9.8 mg/dL (8.5-10.1); Chloride 91 mmol/L (98-107); EST Glomerular Filtration Rate 5 mL/min (>60); Est Glom Filt Rate - Afr Amer 6 mL/min (>60); Estimated Creatinine Clearance 10.78 ml/min; Glucose 214 mg/dL (74-106); Potassium 5.2 mmol/L (3.5-5.1); Protein, Total 7.8 g/dL (6.4-8.2); Sodium Level 132 mmol/L (136-145); Troponin-I HS 35766 pg/mL (3.0-78.0)
--- NOTE | 2024-06-23 08:25 | PCM.CONS.C ---
Assessment & Plan Assessment/Plan (1) Acute non-ST elevation myocardial infarction (NSTEMI): PLAN: Patient is troponins are elevated 2300 on initial presentations emergent department and up to 3600 on the delta troponin #3. He does have end-stage renal disease he is on hemodialysis. His EKG shows nonspecific ST-T wave changes that have not evolved since admission. The patient's chest pain is different than what he experienced with his angina in the past. This is more of a sharp mid retrosternal pain and has been associated with some discolored sputum that was pink in color. The patient is awaiting transfer to [facility]. Currently he is pain-free and hemodynamically stable. (2) ESRD on dialysis: PLAN: Patient is due to have dialysis today his potassium is 5.2 he is on a Sunday schedule. Renal has been consulted. (3) Coronary artery disease: QUALIFIERS: Coronary Disease-Associated Artery/Lesion type: [place] artery [place] vs. transplanted heart: [place] heart Associated angina: unspecified whether angina present Qualified Code(s): I25.10 - Atherosclerotic heart disease of [place] coronary artery without angina pectoris PLAN: The patient has known coronary disease status post cath in 2023 and subsequent intervention into his second in-stent restenosis in the circumflex stent at [facility]. The patient did have moderate disease in the LAD and mild disease in the right coronary artery with a global left ventricular ejection fraction of 45% felt to be related to hypertensive heart disease. The patient is awaiting transfer back to [facility]. Currently he is asymptomatic and resting comfortably. He does have significant elevation in his enzymes but his symptoms are different as far as his chest pain from his prior admission in January. The patient is diabetic and his troponins are significantly elevated at 3600. Further evaluation invasively versus noninvasive would be deferred to the [facility] once he is transferred there. (4) VERÓNICA (obstructive sleep apnea): PLAN: Patient is tolerating his therapy without incident. (5) Hypertension: QUALIFIERS: Hypertension type: primary hypertension Qualified Code(s): I10 - Essential (primary) hypertension PLAN: Patient is on aggressive medical therapy and his blood pressures have been adequately controlled by his report. (6) Non-ischemic cardiomyopathy: PLAN: Patient has a history of an EF of 45% by echo in January 2024. This is global in nature consistent with probably hypertensive heart disease as he only really had significant single-vessel coronary disease of his circumflex system. PLAN: Plan 1. Continue current medical therapy including IV heparin. 2. Proceed with dialysis as tolerated. 3. Will await transfer to [facility] for further definitive evaluation of his cardiac status. 4. Please call if further assistance is needed. HPI Consult Data Date of Consult: 06/23/24 HPI Narrative HPI Narrative: LISA MASTERSON, is a 54 M who presents to the emergency department with chest discomfort. Patient was recently evaluated for lower respiratory tract infection in the emergency department and then returned with sharp discomfort in his mid retrosternal area. Patient reports that this is different than his previous angina. He does have a known history of severe disease in the circumflex that has been stented twice and on his last catheterization in January 2024 he had in-stent restenosis and was transferred to [facility] where he was intervened upon. He has mild to moderate disease in LAD and mild disease in the right coronary artery. LV ejection fraction is known to be in the 45% range. He was to be transferred to [facility] from the emergency department but there were no beds available so the patient was hospitalized here at [facility]. Patient's original stenting procedure was December 2022 where he received a 3.0 mm x 38 mm in length stent in the circumflex. Patient has a functioning fistula in his left wrist. Patient has hemodialysis on Sunday. Currently the patient is resting in his hospital bed pain-free on his BiPAP. Patient's nasal swab was negative for COVID, influenza, and RSV. The patient carries a history of hypertension hyperlipidemia diabetes end-stage renal disease on hemodialysis Sunday and Sunday as well as peripheral vascular disease status post revascularization of his lower extremity. He also has a history of paroxysmal atrial fibrillation/flutter. His EKG on admission showed sinus tach at [address]-T wave changes. Troponin was 2300 and went up to 3600. [facility] Medical History Non-ST elevation [place] (NSTEMI) Atrial flutter with rapid ventricular response Chest pain Paroxysmal atrial fibrillation Cardiomyopathy NSTEMI, initial episode of care Kidney disease Congestive heart failure (CHF) Anxiety Atrial fibrillation Chest pain Non-ST elevation IL (NSTEMI) Atrial flutter Dialysis patient CPAP (continuous positive airway pressure) dependence Pneumonia due to COVID-19 virus Myocardial infarct VERÓNICA (obstructive sleep apnea) Arteriosclerotic cardiovascular disease Dyslipidemia Elevated troponin ESRD on dialysis Wears glasses Wears partial dentures Insulin dependent diabetes mellitus Diabetes High cholesterol Non-smoker COPD (chronic obstructive pulmonary disease) Sleep apnea History of stress test History of echocardiogram Leg cramps Hypertension Cardiology follow-up encounter History of CHF (congestive heart failure) Fistula Hypotension Degenerative disc disease, cervical Diabetes mellitus, type II, insulin dependent Diabetic polyneuropathy (04/2017) GERD (gastroesophageal reflux disease) Chronic kidney disease with end stage renal failure on dialysis Non-ischemic cardiomyopathy Essential (primary) hypertension Syncope (07/2018) Problem with dialysis access Anemia of chronic renal failure, stage 4 (severe) Demand ischemia Morbid obesity Systolic and diastolic CHF, acute Elevated troponin Home Medications ?Medication ?Instructions ?Recorded ?Last Taken ?Type blood-glucose meter (FreeStyle #1 ea 12/22/19 Unknown Rx [place] Lite kit) lancets 28 gauge (FreeStyle #100 ea 12/22/19 Unknown Rx Lancets) pen needle, diabetic 32 gauge x #400 ea 12/22/19 Unknown Rx 5/32 (BD Ultra-Fine [place] Pen Needle) albuterol sulfate 90 mcg/actuation 2 puff inhalation Q6H PRN 07/26/21 06/22/24 History aerosol inhaler Shortness Of Breath Or Wheezing atorvastatin 80 mg tablet 80 mg PO QHS CHOLESTEROL 07/26/21 06/22/24 History ezetimibe 10 mg tablet 10 mg PO DAILY HIGH CHOLESTEROL 07/26/21 06/22/24 History sucroferric oxyhydroxide 500 mg 1,500 mg PO TID KIDNEY HEALTH 02/20/22 06/22/24 History chewable tablet (Velphoro) insulin aspart U-100 100 unit/mL 15 unit subcut .COMPLEX BLOOD SUGAR 01/22/23 06/22/24 History (3 mL) subcutaneous pen (Novolog FlexPen U-100 Insulin aspart) lanthanum 1,000 mg chewable tablet 3,000 mg PO TIDCM for kidneys 01/22/23 06/22/24 History sertraline 50 mg tablet 50 mg PO DAILY ANTI DEPRESSANT 01/22/23 06/22/24 History trazodone 50 mg tablet 50 mg PO QHS SLEEP 01/22/23 06/22/24 History vitamin B complex-vitamin C-folic 1 tab PO DAILY VITAMIN 01/22/23 06/22/24 History acid 0.8 mg tablet (Leonela-Herbie) dulaglutide 0.75 mg/0.5 mL 0.75 mg subcut .sat diabetes 04/10/23 06/21/24 History subcutaneous pen injector (Trulicity) cinacalcet 60 mg tablet 120 mg PO DAILY dialysis 05/04/23 06/20/24 History gabapentin 300 mg capsule 300 mg PO QHS PAIN 05/04/23 06/22/24 History nitroglycerin 0.4 mg sublingual 0.4 mg buccal Q5M PRN chest pain 05/04/23 Unknown History tablet cholecalciferol (vitamin D3) 1,250 50,000 unit PO QWEEK SUPPLEMENT 06/07/23 06/17/24 History mcg (50,000 unit) capsule nifedipine 60 mg tablet,extended 60 mg PO DAILY blood pressure 06/07/23 06/22/24 History release aspirin 81 mg tablet,delayed 81 mg PO DAILY HEART 02/21/24 06/22/24 History release buspirone 15 mg tablet 15 mg PO BID mental health 02/21/24 06/22/24 History insulin degludec 100 unit/mL (3 41 unit subcut QHS DM 02/21/24 06/22/24 History mL) subcutaneous pen (Tresiba FlexTouch U-100 insulin) lansoprazole 30 mg capsule,delayed 30 mg PO BID GERD 02/21/24 06/22/24 History release furosemide 40 mg tablet 40 mg PO DAILY diuretic 04/21/24 06/22/24 History metoprolol succinate 50 mg 100 mg (2 x 50 mg) PO BID #120 tabs 04/21/24 06/22/24 Rx tablet,extended release 24 hr sacubitril 49 mg-valsartan 51 mg 1 tab PO BID heart 04/21/24 06/22/24 History tablet (Entresto) ticagrelor 90 mg tablet (Brilinta) 90 mg PO BID anti platelet 04/21/24 06/22/24 History ondansetron 8 mg disintegrating 8 mg PO Q8H PRN nausea and 05/29/24 Unknown Rx tablet vomiting #15 tabs albuterol sulfate 90 mcg/actuation 1 - 2 puff inhalation Q4H PRN PRN 06/21/24 Unknown Rx aerosol inhaler (Ventolin HFA) Wheezing #1 ea prednisone 20 mg tablet 40 mg (2 x 20 mg) PO DAILY steroid 06/21/24 06/22/24 Rx 5 days #10 tabs Allergy/AdvReac Type Severity Reaction Status Date / Time liraglutide (From Victoza) Allergy Unknown unknown Verified 06/22/24 18:04 NSAIDS (Non-Steroidal AdvReac Severe Renal Verified 06/22/24 18:04 Anti-Inflamma failure BLANCA Inhibitors AdvReac Intermediate cough Verified 06/22/24 18:04 Family History Mother Hypertension Grandmother Aneurysm Other NSTEMI, initial episode of care Stented coronary artery Surgical History Stented coronary artery Hx of cardiac catheterization (~01/23/23) History of angioplasty of peripheral vessel (07/2021) Presence of surgically created arteriovenous shunt for hemodialysis (07/2017) Social History household members: spouse housing: house Smoking Status: Never smoker alcohol intake: never substance use type: does not use ROS Constitutional Constitutional: Reports as per HPI Eyes Eyes: Reports systems reviewed and no addt'l complaints, except as documented ENT HEENT: Reports systems reviewed and no addt'l complaints, except as documented Cardiovascular Cardiovascular: Reports as per HPI Respiratory/Chest Respiratory/Chest: Reports as per HPI Gastrointestinal Gastrointestinal: Reports systems reviewed and no addt'l complaints, except as documented Genitourinary Genitourinary: Reports as per HPI Musculoskeletal Musculoskeletal: Reports systems reviewed and no addt'l complaints, except as documented Integumentary Integumentary: Reports systems reviewed and no addt'l complaints, except as documented Neurologic Neurologic: Reports systems reviewed and no addt'l complaints, except as documented Psychiatric Psychiatric: Reports systems reviewed and no addt'l complaints, except as documented Endocrine Endocrinology: Reports as per HPI Hematologic/Lymphatic Hematologic/Lymphatic: Reports systems reviewed and no addt'l complaints, except as documented Allergic/Immunologic Allergic/Immunologic: Reports systems reviewed and no addt'l complaints, except as documented Physical Exam Const alert and oriented x3 Constitutional Narrative: Pleasant obese -[place]ren[place] male. HEENT normocephalic Eyes PERRL Neck no JVD and no carotid bruits Resp normal respiratory effort and clear to auscultation bilaterally Cardio Cardio Narrative: Distant heart tones Rate: tachycardic Rhythm: regular rhythm Heart Sounds: S1 normal and S2 normal; Negative for click, gallop or murmur GI soft to palpation Extremity no pedal edema Neuro Neuro Narrative: Alert and oriented x 3 Psych mental status grossly normal Risk Stratification Risk Stratification Applicable: Yes Age >/= 65: No >/= 3 CAD Risk Factors (HTN, HLD, DM, family hx of CAD, or current smoker): Yes Aspirin Use in the Past 7 Days: Yes Severe Angina (>/= episodes in 24 hours): Yes EKG ST Changes >/= 0.5mm: No Positive Cardiac Marker: Yes ALONDRA Risk Stratification Score: 4 ALONDRA % Risk: 20% Risk Charges/Coding Visit Charges Inpatient E&M: 09090 Init Hosp L2 Objective Data Vital Signs: Vital Signs Temp Pulse Resp BP Pulse Ox O2 Del Method O2 Flow Rate 97.5 F L 122 H 18 118/86 H 96 Nasal Cannula 2 06/23/24 03:59 06/23/24 05:31 06/23/24 03:59 06/23/24 03:59 06/23/24 05:31 06/23/24 04:15 06/23/24 04:15 FiO2 21 06/23/24 05:31 Oxygen Flow Rate (L/min) 2 Oxygen Delivery Method Nasal Cannula Weight: 298 lb 1.6 oz Body Mass Index (BMI) 41.5 Intake & Output: Intake and Output for Last 24 Hours 06/21/24 06/22/24 06/23/24 23:59 23:59 23:59 Intake Total 500 / 500 597.17 / 597.17 Output Total 0 / 0 Balance 500 / 500 597.17 / 597.17 Lab / Micro Data Attestation: I reviewed the patient's lab results. 06/23/24 05:34 06/23/24 05:34 Labs: Laboratory Results - last 24 hr 06/22/24 18:15: WBC 10.0, RBC 3.82 L, Hgb 11.0 L, Hct 34.5 L, MCV 90.3, MCH 28.8, MCHC 31.9 L, RDW Std Deviation 55.9 H, RDW Coeff of Kyle 17.9 H, Plt Count 282, MPV 9.8, Immature Gran % (Auto) 0.600, Neut % (Auto) 83.6 H, Lymph % (Auto) 7.4 L, [place] % (Auto) 7.5, Eos % (Auto) 0.7, Baso % (Auto) 0.2, Absolute Neuts (auto) 8.4 H, Absolute Lymphs (auto) 0.74 L, Nucleated RBC % 0.2, Sodium 133 L, Potassium 5.0, Chloride 90 L, Carbon Dioxide 25.0, Anion Gap 18 H, BUN 67 H, Creatinine 10.70 H*, Est GFR (MDRD) Af Amer 7 L, Est GFR (MDRD) Non-Af 5 L, BUN/Creatinine Ratio 6.3 L, Glucose 330 H, Calcium 10.2 H, Troponin I High Sens 2372 H* 06/22/24 19:28: PT 17.0 H, INR 1.4, APTT 28.9 06/22/24 20:36: Troponin I High Sens 2704 H* 06/23/24 02:47: Sodium 133 L, Potassium 6.1 H*, Chloride 91 L, Carbon Dioxide 26.0, Anion Gap 16 H, BUN 73 H, Creatinine 10.90 H*, Estim Creat Clear Calc 10.73, Est GFR (MDRD) Af Amer 6 L, Est GFR (MDRD) Non-Af 5 L, BUN/Creatinine Ratio 6.7 L, Glucose 278 H, Calcium 9.2, Magnesium 2.8 H, Procalcitonin 0.93 H, Acetone Level NEGATIVE 06/23/24 04:16: APTT Cancelled 06/23/24 05:34: WBC 9.2, RBC 3.46 L, Hgb 10.0 L, Hct 31.3 L, MCV 90.5, MCH 28.9, MCHC 31.9 L, RDW Std Deviation 55.9 H, RDW Coeff of Kyle 17.4 H, Plt Count 222, MPV 10.2, Immature Gran % (Auto) 1.000 H, Neut % (Auto) 85.9 H, Lymph % (Auto) 5.7 L, [place] % (Auto) 7.1, Eos % (Auto) 0.1, Baso % (Auto) 0.2, Absolute Neuts (auto) 7.9 H, Absolute Lymphs (auto) 0.52 L, Nucleated RBC % 0.2, APTT 36.7 H, Sodium 132 L, Potassium 5.2 H, Chloride 91 L, Carbon Dioxide 23.0, Anion Gap 18 H, BUN 72 H, Creatinine 11.00 H*, Estim Creat Clear Calc 10.78, Est GFR (MDRD) Af Amer 6 L, Est GFR (MDRD) Non-Af 5 L, BUN/Creatinine Ratio 6.5 L, Glucose 214 H, Calcium 9.8, Total Bilirubin 0.40, AST 95 H, ALT 38, Alkaline Phosphatase 110, Troponin I High Sens 98427 H*, Total Protein 7.8, Albumin 3.8, Globulin 4.0, Albumin/Globulin Ratio 1.0 Micro: Microbiology 06/22/24 18:41 Mucosa - Nose SARS-CoV-2, Influenza & RSV (PCR) - Final Rhythm Strip Rhythm Strip: Sinus Rhythm Rate: 110 Cardiology Labs/Tests 06/22/24 18:15: WBC 10.0, RBC 3.82 L, Hgb 11.0 L, Hct 34.5 L, MCV 90.3, MCH 28.8, MCHC 31.9 L, Plt Count 282, MPV 9.8, Immature Gran % (Auto) 0.600, Neut % (Auto) 83.6 H, Lymph % (Auto) 7.4 L, [place] % (Auto) 7.5, Eos % (Auto) 0.7, Baso % (Auto) 0.2, Absolute Neuts (auto) 8.4 H, Nucleated RBC % 0.2, Sodium 133 L, Potassium 5.0, Chloride 90 L, Carbon Dioxide 25.0, Anion Gap 18 H, BUN 67 H, Creatinine 10.70 H*, Est GFR (MDRD) Af Amer 7 L, Est GFR (MDRD) Non-Af 5 L, BUN/Creatinine Ratio 6.3 L, Glucose 330 H, Calcium 10.2 H 06/22/24 19:28: PT 17.0 H, INR 1.4, APTT 28.9 06/23/24 02:47: Sodium 133 L, Potassium 6.1 H*, Chloride 91 L, Carbon Dioxide 26.0, Anion Gap 16 H, BUN 73 H, Creatinine 10.90 H*, Est GFR (MDRD) Af Amer 6 L, Est GFR (MDRD) Non-Af 5 L, BUN/Creatinine Ratio 6.7 L, Glucose 278 H, Calcium 9.2, Magnesium 2.8 H 06/23/24 04:16: APTT Cancelled 06/23/24 05:34: WBC 9.2, RBC 3.46 L, Hgb 10.0 L, Hct 31.3 L, MCV 90.5, MCH 28.9, MCHC 31.9 L, Plt Count 222, MPV 10.2, Immature Gran % (Auto) 1.000 H, Neut % (Auto) 85.9 H, Lymph % (Auto) 5.7 L, [place] % (Auto) 7.1, Eos % (Auto) 0.1, Baso % (Auto) 0.2, Absolute Neuts (auto) 7.9 H, Nucleated RBC % 0.2, APTT 36.7 H, Sodium 132 L, Potassium 5.2 H, Chloride 91 L, Carbon Dioxide 23.0, Anion Gap 18 H, BUN 72 H, Creatinine 11.00 H*, Est GFR (MDRD) Af Amer 6 L, Est GFR (MDRD) Non-Af 5 L, BUN/Creatinine Ratio 6.5 L, Glucose 214 H, Calcium 9.8, Total Bilirubin 0.40 Rhythm: EKG: ECHO: Stress Test: Cardiac Cath: PCI: CT Surgery: Holter monitor: EPS: PPM: CXR: Chest CT Scan: Radiography Diagnostic Testing: Radiology Impression Chest X-Ray 06/22/24 18:30 IMPRESSION: Cardiomegaly without a focal airspace abnormality. Reading Location: [facility]
[2024-06-23] MEDS: Furosemide 40 MG Tablet PO (09:16)
[2024-06-23] MEDS: SACUBITRIL/VALSARTAN 49-51 MG TABLET 1 EACH PO ×2 (09:16→20:23)
[2024-06-23] MEDS: Ezetimibe 10 MG Tablet PO (09:16)
[2024-06-23] MEDS: Folic Acid/Vitamin B Comp W-C 1 Capsule 1 CAP PO (09:16)
[2024-06-23] MEDS: predniSONE 20 MG Tablet 40 MG PO (09:16)
[2024-06-23] MEDS: Lansoprazole 15 MG Capsule.DR 30 MG PO ×2 (09:16→20:22)
[2024-06-23] MEDS: Aspirin E.C. 81 MG Tablet PO (09:16)
[2024-06-23] MEDS: Acetaminophen 325 MG Tablet 650 MG PO ×2 (09:17→17:46)
[2024-06-23] MEDS: busPIRone 15 MG TABLET PO ×2 (09:17→20:23)
[2024-06-23] MEDS: Sertraline 50 MG Tablet PO (09:17)
[2024-06-23] MEDS: TICAGRELOR 90 MG TABLET PO ×2 (09:17→20:47)
[2024-06-23] MEDS: NIFEdipine 60 MG Tablet PO (09:20)
[2024-06-23] MEDS: Nitroglycerin (INPATIENT USE) 0.4 MG TAB.SUBL SL (09:24)
[2024-06-23] MEDS: Insulin Lispro 100 UNIT/ML INSULN.PEN 15 UNIT SC ×2 (09:29→17:49)
[2024-06-23] MEDS: Insulin Lispro 100 UNIT/ML INSULN.PEN SC ×3 (09:30→20:30)
[2024-06-23] MEDS: Ondansetron 4 MG/2 ML Vial IV (09:41)
[2024-06-23] MEDS: Metoprolol(XL)Succ 100 MG Tablet PO (11:49)
[2024-06-23] MEDS: BENZOCAINE/MENTHOL 1 LOZENGE MUCOUS MEM ×2 (11:54→17:46)
[2024-06-23] MEDS: guaiFENesin 10 ML UDC (200MG/10ML) 20 ML PO ×2 (11:54→17:46)
[2024-06-23] MEDS: 0.9% Normal Saline 1,000 ML IV.SOLN. 1000 ML OPERA.SITE (12:20)
[2024-06-23] MEDS: PureFlow B 2K Dialysis Soln 1 BAG 6 BAG PF (12:21)
[2024-06-23 12:24] LABS: Partial Thromboplast Time 54.5 Seconds (24.1-36.2)
[2024-06-23 12:30] LABS: Bedside Glucose 192 mg/dL (74-106)
[2024-06-23] MEDS: Ipratropium 0.5 MG/2.5 ML SOLUTION INHALATION ×2 (13:26→19:24)
--- NOTE | 2024-06-23 13:28 | PCM.CONS.R ---
Assessment & Plan Assessment/Plan (1) ESRD on dialysis: PLAN: On hemodialysis Sunday, Sunday, Sunday. Will plan for dialysis today. Hyperkalemia. Received medical treatment. Will use 2K solution today. Non-ST elevation AK. On heparin drip. Possible transfer to [facility]. HPI Consult Data Date of Consult: 06/23/24 HPI Narrative Reason for Consultation: ESRD HPI Narrative: LISA MASTERSON, is a 54 M who presents To the hospital with chest discomfort, shortness of breath. Has had upper respiratory infection symptoms for the last 3 to 4 days. Was given antibiotics and steroids as outpatient. Did not improve. On arrival he was found to have elevated troponins, currently on heparin drip for potential non-ST elevation AK. Original plan was to transfer to tertiary care center but admitted here temporarily pending bed availability. Complains of chest discomfort, some shortness of breath. ESRD, on hemodialysis Sunday, Sunday, Sunday. Dialysis on Sunday was uneventful. [facility] Medical History Non-ST elevation AK (NSTEMI) Atrial flutter with rapid ventricular response Chest pain Paroxysmal atrial fibrillation Cardiomyopathy NSTEMI, initial episode of care Kidney disease Congestive heart failure (CHF) Anxiety Atrial fibrillation Chest pain Non-ST elevation AK (NSTEMI) Atrial flutter Dialysis patient CPAP (continuous positive airway pressure) dependence Pneumonia due to COVID-19 virus Myocardial infarct VERÓNICA (obstructive sleep apnea) Arteriosclerotic cardiovascular disease Dyslipidemia Elevated troponin ESRD on dialysis Wears glasses Wears partial dentures Insulin dependent diabetes mellitus Diabetes High cholesterol Non-smoker COPD (chronic obstructive pulmonary disease) Sleep apnea History of stress test History of echocardiogram Leg cramps Hypertension Cardiology follow-up encounter History of CHF (congestive heart failure) Fistula Hypotension Degenerative disc disease, cervical Diabetes mellitus, type II, insulin dependent Diabetic polyneuropathy (04/2017) GERD (gastroesophageal reflux disease) Chronic kidney disease with end stage renal failure on dialysis Non-ischemic cardiomyopathy Essential (primary) hypertension Syncope (07/2018) Problem with dialysis access Anemia of chronic renal failure, stage 4 (severe) Demand ischemia Morbid obesity Systolic and diastolic CHF, acute Elevated troponin Home Medications ?Medication ?Instructions ?Recorded ?Last Taken ?Type blood-glucose meter (FreeStyle #1 ea 12/22/19 Unknown Rx [place] Lite kit) lancets 28 gauge (FreeStyle #100 ea 12/22/19 Unknown Rx Lancets) pen needle, diabetic 32 gauge x #400 ea 12/22/19 Unknown Rx (BD Ultra-Fine [place] Pen Needle) albuterol sulfate 90 mcg/actuation 2 puff inhalation Q6H PRN 07/26/21 06/22/24 History aerosol inhaler Shortness Of Breath Or Wheezing atorvastatin 80 mg tablet 80 mg PO QHS CHOLESTEROL 07/26/21 06/22/24 History ezetimibe 10 mg tablet 10 mg PO DAILY HIGH CHOLESTEROL 07/26/21 06/22/24 History sucroferric oxyhydroxide 500 mg 1,500 mg PO TID KIDNEY HEALTH 02/20/22 06/22/24 History chewable tablet (Velphoro) insulin aspart U-100 100 unit/mL 15 unit subcut .COMPLEX BLOOD SUGAR 01/22/23 06/22/24 History (3 mL) subcutaneous pen (Novolog FlexPen U-100 Insulin aspart) lanthanum 1,000 mg chewable tablet 3,000 mg PO TIDCM for kidneys 01/22/23 06/22/24 History sertraline 50 mg tablet 50 mg PO DAILY ANTI DEPRESSANT 01/22/23 06/22/24 History trazodone 50 mg tablet 50 mg PO QHS SLEEP 01/22/23 06/22/24 History vitamin B complex-vitamin C-folic 1 tab PO DAILY VITAMIN 01/22/23 06/22/24 History acid 0.8 mg tablet (Leonela-Herbie) dulaglutide 0.75 mg/0.5 mL 0.75 mg subcut .sat diabetes 04/10/23 06/21/24 History subcutaneous pen injector (Trulicity) cinacalcet 60 mg tablet 120 mg PO DAILY dialysis 05/04/23 06/20/24 History gabapentin 300 mg capsule 300 mg PO QHS PAIN 05/04/23 06/22/24 History nitroglycerin 0.4 mg sublingual 0.4 mg buccal Q5M PRN chest pain 05/04/23 Unknown History tablet cholecalciferol (vitamin D3) 1,250 50,000 unit PO QWEEK SUPPLEMENT 06/07/23 06/17/24 History mcg (50,000 unit) capsule nifedipine 60 mg tablet,extended 60 mg PO DAILY blood pressure 06/07/23 06/22/24 History release aspirin 81 mg tablet,delayed 81 mg PO DAILY HEART 02/21/24 06/22/24 History release buspirone 15 mg tablet 15 mg PO BID mental health 02/21/24 06/22/24 History insulin degludec 100 unit/mL (3 41 unit subcut QHS DM 02/21/24 06/22/24 History mL) subcutaneous pen (Tresiba FlexTouch U-100 insulin) lansoprazole 30 mg capsule,delayed 30 mg PO BID GERD 02/21/24 06/22/24 History release furosemide 40 mg tablet 40 mg PO DAILY diuretic 04/21/24 06/22/24 History metoprolol succinate 50 mg 100 mg (2 x 50 mg) PO BID #120 tabs 04/21/24 06/22/24 Rx tablet,extended release 24 hr sacubitril 49 mg-valsartan 51 mg 1 tab PO BID heart 04/21/24 06/22/24 History tablet (Entresto) ticagrelor 90 mg tablet (Brilinta) 90 mg PO BID anti platelet 04/21/24 06/22/24 History ondansetron 8 mg disintegrating 8 mg PO Q8H PRN nausea and 05/29/24 Unknown Rx tablet vomiting #15 tabs albuterol sulfate 90 mcg/actuation 1 - 2 puff inhalation Q4H PRN PRN 06/21/24 Unknown Rx aerosol inhaler (Ventolin HFA) Wheezing #1 ea prednisone 20 mg tablet 40 mg (2 x 20 mg) PO DAILY steroid 06/21/24 06/22/24 Rx 5 days #10 tabs Allergy/AdvReac Type Severity Reaction Status Date / Time liraglutide (From Victoza) Allergy Unknown unknown Verified 06/22/24 18:04 NSAIDS (Non-Steroidal AdvReac Severe Renal Verified 06/22/24 18:04 Anti-Inflamma failure BLANCA Inhibitors AdvReac Intermediate cough Verified 06/22/24 18:04 Family History Mother Hypertension Grandmother Aneurysm Other NSTEMI, initial episode of care Stented coronary artery Surgical History Stented coronary artery Hx of cardiac catheterization (~09/26/23) History of angioplasty of peripheral vessel (07/2021) Presence of surgically created arteriovenous shunt for hemodialysis (07/2017) Social History household members: spouse housing: house Smoking Status: Never smoker alcohol intake: never substance use type: does not use ROS ROS Narrative negative except above Physical Exam Narrative Alert awake oriented x 3 no obvious distress no pallor no icterus no JVD s1s2 no murmurs lungs clear abdomen soft no organomegaly no edema no cyanosis Lab / Micro Data 06/23/24 05:34 06/23/24 05:34 Labs: Laboratory Results - last 24 hr 06/22/24 18:15: WBC 10.0, RBC 3.82 L, Hgb 11.0 L, Hct 34.5 L, MCV 90.3, MCH 28.8, MCHC 31.9 L, RDW Std Deviation 55.9 H, RDW Coeff of Kyle 17.9 H, Plt Count 282, MPV 9.8, Immature Gran % (Auto) 0.600, Neut % (Auto) 83.6 H, Lymph % (Auto) 7.4 L, [place] % (Auto) 7.5, Eos % (Auto) 0.7, Baso % (Auto) 0.2, Absolute Neuts (auto) 8.4 H, Absolute Lymphs (auto) 0.74 L, Nucleated RBC % 0.2, Sodium 133 L, Potassium 5.0, Chloride 90 L, Carbon Dioxide 25.0, Anion Gap 18 H, BUN 67 H, Creatinine 10.70 H*, Est GFR (MDRD) Af Amer 7 L, Est GFR (MDRD) Non-Af 5 L, BUN/Creatinine Ratio 6.3 L, Glucose 330 H, Calcium 10.2 H, Troponin I High Sens 2372 H* 06/22/24 19:28: PT 17.0 H, INR 1.4, APTT 28.9 06/22/24 20:36: Troponin I High Sens 2704 H* 06/23/24 02:47: Sodium 133 L, Potassium 6.1 H*, Chloride 91 L, Carbon Dioxide 26.0, Anion Gap 16 H, BUN 73 H, Creatinine 10.90 H*, Estim Creat Clear Calc 10.73, Est GFR (MDRD) Af Amer 6 L, Est GFR (MDRD) Non-Af 5 L, BUN/Creatinine Ratio 6.7 L, Glucose 278 H, Calcium 9.2, Magnesium 2.8 H, Procalcitonin 0.93 H, Acetone Level NEGATIVE 06/23/24 04:16: APTT Cancelled 06/23/24 05:34: WBC 9.2, RBC 3.46 L, Hgb 10.0 L, Hct 31.3 L, MCV 90.5, MCH 28.9, MCHC 31.9 L, RDW Std Deviation 55.9 H, RDW Coeff of Kyle 17.4 H, Plt Count 222, MPV 10.2, Immature Gran % (Auto) 1.000 H, Neut % (Auto) 85.9 H, Lymph % (Auto) 5.7 L, [place] % (Auto) 7.1, Eos % (Auto) 0.1, Baso % (Auto) 0.2, Absolute Neuts (auto) 7.9 H, Absolute Lymphs (auto) 0.52 L, Nucleated RBC % 0.2, APTT 36.7 H, Sodium 132 L, Potassium 5.2 H, Chloride 91 L, Carbon Dioxide 23.0, Anion Gap 18 H, BUN 72 H, Creatinine 11.00 H*, Estim Creat Clear Calc 10.78, Est GFR (MDRD) Af Amer 6 L, Est GFR (MDRD) Non-Af 5 L, BUN/Creatinine Ratio 6.5 L, Glucose 214 H, Calcium 9.8, Total Bilirubin 0.40, AST 95 H, ALT 38, Alkaline Phosphatase 110, Troponin I High Sens 49960 H*, Total Protein 7.8, Albumin 3.8, Globulin 4.0, Albumin/Globulin Ratio 1.0 06/23/24 12:03: POC Glucose 192 H 06/23/24 12:06: APTT 54.5 H Micro: Microbiology 06/23/24 04:07 Mucosa - Nasopharyngeal Respiratory Panel (PCR) - Final 06/22/24 18:41 Mucosa - Nose SARS-CoV-2, Influenza & RSV (PCR) - Final Rhythm Strip Rhythm Strip: Sinus Rhythm Rate: 110 Imaging Radiology Impression Chest X-Ray 06/22/24 18:30 IMPRESSION: Cardiomegaly without a focal airspace abnormality. Reading Location: [facility]
--- NOTE | 2024-06-23 14:34 | CHAPLAIN ---
Type of Pastoral Visit _x__ Initial Visit ___ Follow-up Visit ___ On-call Visit ___ General Patient Visit ___ Spiritual Assessment ___ Family Conference ___ Bereavement ___ Rapid Response ___ Code Blue ___ Other (describe below) Pastoral Care Referral From _x__ Patient ___ Family ___ Nurse ___ Physician ___ Order Desk Caller ___ [place] ___ Other (describe below) Sacrament/Intervention ___ Active listening ___ Anointing ___ Adventist ___ Bereavement ___ Communion ___ Olivia exploration ___ ___ Life review _x__ Prayer ___ Reconciliation ___ Sacrament of Sick _x__ Supportive presence ___ Wedding ___ Other (describe below) Pastoral Comments patient is currently receiving his dialysis treatment and is trying to eat; pt is welcoming and says he remembers this curatorial assistant from a previous meeting in the hospital; pt states that he is doing well and that family has been supportive; pt acknowledges that God is his source of strength; pt welcomes a prayer and has no other concerns at this time
[2024-06-23 16:35] LABS: Bedside Glucose 234 mg/dL (74-106)
[2024-06-23] MEDS: HEPARIN/D5w 25,000 UNITS 25,000 UNITS/250 ML IV.SOLN. 13 UNITS CONT INF (17:53)
--- NOTE | 2024-06-23 18:16 | PCM.PN.BLA ---
Progress Note Third troponin this morning was 35,000 and after dialysis he became severely hypotensive and they could not diurese him effectively. He was having some shortness of breath and lightheadedness during dialysis part of the blood pressure issues may have been the fact that he was given all of his blood pressure medications prior to dialysis however his EF is also newly reduced down to 15% and cardiology felt that he would be more appropriate for an ICU level of care for possible dobutamine to be started if his pressures remain low or reattempt at dialysis as is trialed. In the meantime we will discontinue all of his blood pressure medications except for Lasix.
[2024-06-23 20:18] LABS: Bedside Glucose 174 mg/dL (74-106)
[2024-06-23] MEDS: Gabapentin 300 MG Capsule PO (20:22)
[2024-06-23] MEDS: traZODone 50 MG Tablet PO (20:23)
[2024-06-23] MEDS: Atorvastatin Calcium 80 MG Tablet PO (20:23)
[2024-06-23] MEDS: Insulin Glargine-YFGN 100 UNIT/ML Pen 41 UNIT SC (20:23)
[2024-06-23 20:24] LABS: Partial Thromboplast Time 49.3 Seconds (24.1-36.2)
--- NOTE | 2024-06-24 07:12 | PCM.DC.SUM ---
Providers Date of Admission: 06/23/24 Date of Discharge: 06/23/24 Primary Care Physician: Dr. Norris Mcqueen MD Consultations 06/23/24 03:49 Consult: Cardiology Routine Consulting Provider: Max Bosch Reason for Consult: NSTEMI, waiting on tertiary facility transfer bed. EMERGENT Consult: No Notified: Yes Date Notified: 06/23/24 Time Notified: 02:32 Method of Notification: Text Consult: Nephrology Routine Consulting Provider: Jade Lamar Reason for Consult: ESRD on HD MWF EMERGENT Consult: No Notified: Yes Date Notified: 06/23/24 Time Notified: 07:10 Method of Notification: Text Reason For Visit: NSTEMI, COPD EXAC Diagnosis Discharge Diagnosis (1) ESRD on dialysis: Status: Acute Code(s): N18.6 - End stage renal disease; Z99.2 - Dependence on renal dialysis Medications at Discharge Home Medications blood-glucose meter (FreeStyle Madison Lite kit) #1 ea 12/22/19 lancets 28 gauge (FreeStyle Lancets) #100 ea 12/22/19 pen needle, diabetic 32 gauge x 5/32 (BD Ultra-Fine China Pen Needle) #400 ea 12/22/19 albuterol sulfate 90 mcg/actuation aerosol inhaler 2 puff inhalation Q6H PRN Shortness Of Breath Or Wheezing 07/26/21 atorvastatin 80 mg tablet 80 mg PO QHS CHOLESTEROL 07/26/21 ezetimibe 10 mg tablet 10 mg PO DAILY HIGH CHOLESTEROL 07/26/21 sucroferric oxyhydroxide 500 mg chewable tablet (Velphoro) 1,500 mg PO TID KIDNEY HEALTH 02/20/22 insulin aspart U-100 100 unit/mL (3 mL) subcutaneous pen (Novolog FlexPen U-100 Insulin aspart) 15 unit subcut .COMPLEX BLOOD SUGAR 01/22/23 lanthanum 1,000 mg chewable tablet 3,000 mg PO TIDCM for kidneys 01/22/23 sertraline 50 mg tablet 50 mg PO DAILY ANTI DEPRESSANT 01/22/23 trazodone 50 mg tablet 50 mg PO QHS SLEEP 01/22/23 vitamin B complex-vitamin C-folic acid 0.8 mg tablet (Leonela-Herbie) 1 tab PO DAILY VITAMIN 01/22/23 dulaglutide 0.75 mg/0.5 mL subcutaneous pen injector (Trulicity) 0.75 mg subcut .sat diabetes 04/10/23 cinacalcet 60 mg tablet 120 mg PO DAILY dialysis 05/04/23 gabapentin 300 mg capsule 300 mg PO QHS PAIN 05/04/23 nitroglycerin 0.4 mg sublingual tablet 0.4 mg buccal Q5M PRN chest pain 05/04/23 cholecalciferol (vitamin D3) 1,250 mcg (50,000 unit) capsule 50,000 unit PO QWEEK SUPPLEMENT 06/07/23 nifedipine 60 mg tablet,extended release 60 mg PO DAILY blood pressure 06/07/23 aspirin 81 mg tablet,delayed release 81 mg PO DAILY HEART 02/21/24 buspirone 15 mg tablet 15 mg PO BID mental health 02/21/24 insulin degludec 100 unit/mL (3 mL) subcutaneous pen (Tresiba FlexTouch U-100 insulin) 41 unit subcut QHS DM 02/21/24 lansoprazole 30 mg capsule,delayed release 30 mg PO BID GERD 02/21/24 furosemide 40 mg tablet 40 mg PO DAILY diuretic 04/21/24 metoprolol succinate 50 mg tablet,extended release 24 hr 100 mg (2 x 50 mg) PO BID #120 tabs 04/21/24 sacubitril 49 mg-valsartan 51 mg tablet (Entresto) 1 tab PO BID heart 04/21/24 ticagrelor 90 mg tablet (Brilinta) 90 mg PO BID anti platelet 04/21/24 ondansetron 8 mg disintegrating tablet 8 mg PO Q8H PRN nausea and vomiting #15 tabs 05/29/24 albuterol sulfate 90 mcg/actuation aerosol inhaler (Ventolin HFA) 1 - 2 puff inhalation Q4H PRN PRN Wheezing #1 ea 06/21/24 prednisone 20 mg tablet 40 mg (2 x 20 mg) PO DAILY steroid 5 days #10 tabs 06/21/24 Hospital Course Operations None Procedures 2-D Echocardiogram Summary of Care Provided Minutes Spent on Discharge: 33 Hospital Course: Per HPI: The patient is a 54 y/o M w/ PMHx: HTN, HLD, Anxiety and Depression, Diabetes mellitus type II with chronic neuropathy, ESRD on HD MWF, GERD, CAD status post PCI, PAD with history of peripheral PCI, COPD, VERÓNICA on CPAP nightly, PAF/flutter, HFrEF who presents to the [facility] ED initially on 06/22/2024 with history of upper respiratory flulike symptoms with congestion, rhinorrhea, mild headache, body aches and general fatigue malaise x 4 days with cough and dyspnea evaluated today previous in the emergency room with unremarkable chest x-ray at that time prescribed albuterol inhaler and prednisone burst however following this he had worsened status with fatigue, malaise, nausea and emesis with at least 4 bouts then awakening from a nap at approximately 3:30 PM on day of initial ED presentation with sharp midsternal chest discomfort radiating to his left upper extremity with associated dyspnea prompting ED return to be cautious. Workup in the ED included T98.1 Temporally, heart rate 90, BP 144/90, respiratory rate 18, 95% on room air with most recent repeat vital sign T97.1, heart rate 113, BP 111/93, respiratory rate 14, 9% on 3 L nasal cannula, CBC with WC 10, hemoglobin 11, MCV 90.3, platelet 282 with left shift and lymphopenia, unremarkable coags aside PT 17, BMP with sodium 133, chloride 90, anion gap 18, BUN/creatinine 67/10.70, GFR 5, glucose 330, calcium 10.2, troponin initial 2372 and repeat 2704, chest x-ray with cardiomegaly with no acute cardiopulmonary findings, EKG with ST depressions in the lateral leads with sinus tachycardia with additionally T wave inversions in 1 and aVL with noted 1 and aVL flat T waves in the past, rapid SARS COVID/influenza/RSV PCR negative. Given concern for NSTEMI patient was administered nitroglycerin sublingual x 2 previous to arrival per EMS. In the ED he was administered full-strength aspirin therapy, Zofran and IV morphine. Patient was discussed with cardiology who recommended IV heparin and bolus be initiated. Given patient's significant previous cardiac catheterization demonstrating occlusive disease in the proximal circumflex difficult to intervene recommended transfer to [facility] where he had been evaluated previously. Patient was accepted at [facility] by hospitalist physician Dr. Headley. Given significant weight for transfer bed ED requested patient be temporarily admitted to [facility] while awaiting tertiary facility bed placement. Upon reevaluation in the ED prior to admission patient notes currently chest pain resolved. Hospital Course: #1. Chest Pain w/ Acute NSTEMI although complicated by chronically elevated troponins given underlying renal disease: Given there are no beds at tertiary facility [facility] where patient had recent evaluation and recommended transfer for cardiology in the interim will admit to PCU, will request cardiology involvement until transfer to tertiary bed is obtained, will continue heparin drip, magnesium level requested, continue medical management, ECHO requested in case bed weight prolonged. NG, morphine. 06/23/2024: Third troponin went up to 35,000 from 2700 and during dialysis his blood pressure dropped unclear if this is due to any type of cardiogenic shock as his new EF is 15% on echo this admission or if it was due to dialysis in the setting of having received his blood pressure medications. Regardless he was transferred to the ICU and dobutamine was ordered. In the meantime he made several calls to other hospitals to obtain transfer as there is concern for possible myocarditis. He was accepted at [facility] and was transferred out of the hospital at 10 PM #2. Suspected acute viral syndrome with resulting recent Acute on Chronic COPD exacerbation: Repeat CXR w/ chronic changes, CBC not markedly elevated but does have left shift, will maintain on ATC budesonide therapy, PRN albuterol, continue prednisone burst, HOB, IS parameters, will obtain sputum Cx, respiratory viral panel, procalcitonin, will hold on immediately abx therapy but low threshold to add if appropriate. #3. Diabetes mellitus type II with mild anion gap elevation: With chronic neuropathy hold oral home regimen, continue home insulin regimen, ADA diet, accu checks w/ ISS, continue home gabapentin regimen. Currently repeat BMP and acetone level requested and pending upon admission. Given presentation low suspicion for DKA but has been on oral prednisone therapy. #4. CAD, PAD: Status post previous PCI coronary angioplasty and peripherally, will continue aspirin, relented, statin, Entresto, metoprolol home regimen. #5. PAF/flutter: We will continue patient on metoprolol regimen, not chronically anticoagulated, on dual antiplatelet therapy as noted. #6. Most recent echocardiogram 10/09/2023 with normal LV size, severe concentric LVH, LVEF 45% with moderately dilated RV, will judiciously hydrate only as needed especially given dialysis needs, will continue aspirin, Brilinta, statin, Lasix, metoprolol, Entresto home regimen. #7. Anxiety and depression: We will continue patient home trazodone, BuSpar and sertraline regimen. #8. ESRD: Patient with ongoing dialysis Sunday, given unclear timeline of transfer will request nephrology involvement for planned dialysis. Continue patient home Velphoro and Cinacalcet regimen. #9. Hypertension: Continue home regimen including Lasix, metoprolol, nifedipine, Entresto, PRN hydralazine. #10. Hyperlipidemia: Continue home statin regimen. AM FLP. #11. Chronic normocytic anemia/AOCD: Admission CBC with hemoglobin 11, MCV 90.3, baseline hemoglobin similar, continue to trend. #12. GERD: Continue patient on PPI. #13. VERÓNICA: CPAP nightly. Physical Exam Narrative General: Alert, Oriented x3, Cooperative, No apparent distress HEENT: Atraumatic, PERRLA, EOMI, Normocephalic Oral: Moist Mucosa Neck: Supple, No JVD Lungs: Diminished, Normal air movement, No rhonchi, No wheeze, No rales Cardiovascular: Regular rate, Regular Rhythm, Normal S1, Normal S2, No murmurs Abdomen: Soft, Non Tender, Non-Distended, No Hepato-splenomegaly Extremities: Edema, Capillary Refill Less than 3 Seconds Skin: No rashes, No breakdown Musculoskeletal: No Tenderness to Palpation of Joints or Extremities Neurological: No focal neurological deficits, Motor Exam 5/5 strength throughout, Sensory exam intact to light touch and pain Psych/Mental Status: Normal Affect, Appropriate Weight / BMI Weight Weight: 294 lb 8.601 oz Body Mass Index (BMI) 41.2 ABG / Lab / Microbiology Data 06/23/24 05:34 06/23/24 05:34 Laboratory: Laboratory Results - last 24 hr 06/23/24 05:34: Sodium 132 L, Potassium 5.2 H, Chloride 91 L, Carbon Dioxide 23.0, Anion Gap 18 H, BUN 72 H, Creatinine 11.00 H*, Estim Creat Clear Calc 10.78, Est GFR (MDRD) Af Amer 6 L, Est GFR (MDRD) Non-Af 5 L, BUN/Creatinine Ratio 6.5 L, Glucose 214 H, Calcium 9.8, Total Bilirubin 0.40, AST 95 H, ALT 38, Alkaline Phosphatase 110, Troponin I High Sens 97405 H*, Total Protein 7.8, Albumin 3.8, Globulin 4.0, Albumin/Globulin Ratio 1.0 06/23/24 12:03: POC Glucose 192 H 06/23/24 12:06: APTT 54.5 H 06/23/24 16:11: POC Glucose 234 H 06/23/24 19:50: APTT 49.3 H 06/23/24 19:59: POC Glucose 174 H Microbiology: Microbiology 06/23/24 05:55 Sputum, Expectorated/Coughed Gram Stain - Final 06/23/24 05:55 Sputum, Expectorated/Coughed Respiratory Culture - Final 06/23/24 04:07 Mucosa - Nasopharyngeal Respiratory Panel (PCR) - Final 06/22/24 18:41 Mucosa - Nose SARS-CoV-2, Influenza & RSV (PCR) - Final Radiography Diagnostic Testing: Radiology Impression Echocardiogram 06/23/24 03:49 Interpretation Summary Mildly dilated left ventricle. The estimated ejection fraction is 15 %. There is severe global hypokinesis of the left ventricle. There is evidence of diastolic dysfunction. There is mild biatrial dilatation. Mild (1+) mitral valve insufficiency. Ordering Physician: Nery Adair Referring Physician: Massimo Mancera Performed By: Reza Groves RCS D/C Instructions DC O2, CPAP, BIPAP Needs PSN CPAP & BiPAP: BiPAP & CPAP Settings per PSN Mode CPAP 06/23/24 19:55 Bipap Delivery Device Face Mask 06/23/24 19:55 BiPAP Expiratory Pressure 12 06/23/24 19:55 Fraction of Inspired Oxygen ( 21 06/23/24 19:55 FIO2) Home O2 Discharge instructions: No Meaningful Use Info Meaningful Use Meaningful Use Diagnoses (Choose all that apply): None applicable Ischemic Stroke Statin Dosing Therapy Reference: STATIN DOSE THERAPY REFERENCE: * Patients > 75 years receive moderate or high dose statin therapy. * Patients 75 years or YOUNGER should receive HIGH intensity statin dose unless contraindicated. You will be required to document reason for non-treatment if statin daily dose does not meet guidelines. HIGH DOSE STATIN THERAPY DAILY Atorvastatin > than or = to 40 mg Rosuvastatin > than or = to 20 mg Amlodipine + Atorvastatin > than or = to 2.5/40 mg Ezetimibe + Simvastatin 10/80 mg Simvastatin 80mg Discharge Plan Admission Admit Date/Time: 06/23/24 02:30 Attending Provider: Tk Campbell Primary Care Provider: Norris Mcqueen Consulting Providers: Nery Adair; Max Bosch; Jade Lamar Discharge Orders/Prescriptions Prescriptions: No Action (DME) blood-glucose meter [FreeStyle Madison Lite] Kit See Rx Instructions .ROUTE .MEDSUPPLY Qty: 1 0RF Rx Instructions: As directed (DME) pen needle, diabetic [BD Ultra-Fine China Pen Needle] 32 gauge x 5/32 needle See Rx Instructions .ROUTE .MEDSUPPLY Qty: 400 1RF Rx Instructions: 4 times daily (DME) lancets [FreeStyle Lancets] 28 gauge misc See Rx Instructions .ROUTE .MEDSUPPLY Qty: 100 5RF Rx Instructions: As directed atorvastatin 80 mg tablet 80 mg PO QHS Patient Comments: PT STATES HAS BEEN TAKING IN AM ezetimibe 10 mg tablet 10 mg PO DAILY albuterol sulfate 90 mcg/actuation HFA aerosol inhaler 2 puff inhalation Q6H PRN (Reason: Shortness Of Breath Or Wheezing) cholecalciferol (vitamin D3) 1,250 mcg (50,000 unit) capsule 50,000 unit PO QWEEK Patient Comments: take 1 capsule by mouth ONE TIME A WEEK takes it on Tuesdays nifedipine 60 mg tablet extended release 60 mg PO DAILY Velphoro 500 mg tablet,chewable 1,500 mg PO TID Patient Comments: CHEW & SWALLOW 3 TABLETS THREE TIMES A DAY WITH MEALS Trulicity 0.75 mg/0.5 mL pen injector 0.75 mg SUBCUT .sat Patient Comments: Inject 0.75 mg subcutaneously one time a week. Inject dose once per week. Discard Pen After Leonela-Herbie 0.8 mg tablet 1 tab PO DAILY trazodone 50 mg tablet 50 mg PO QHS sertraline 50 mg tablet 50 mg PO DAILY lanthanum 1,000 mg tablet,chewable 3,000 mg PO TIDCM insulin aspart U-100 [Novolog FlexPen U-100 Insulin] 100 unit/mL (3 mL) insulin pen 15 unit SC .COMPLEX Rx Instructions: 17 units subcutaneously TID CM; 8 units with snacks cinacalcet 60 mg tablet 120 mg PO DAILY Patient Comments: TAKE 2 TABLETS BY MOUTH DAILY gabapentin 300 mg capsule 300 mg PO QHS Patient Comments: Take 1 capsule by mouth daily at bedtime nitroglycerin 0.4 mg tablet, sublingual 0.4 mg buccal Q5M PRN (Reason: chest pain) aspirin 81 mg tablet,delayed release (DR/EC) 81 mg PO DAILY lansoprazole 30 mg capsule,delayed release(DR/EC) 30 mg PO BID buspirone 15 mg tablet 15 mg PO BID insulin degludec [Tresiba FlexTouch U-100] 100 unit/mL (3 mL) insulin pen 41 unit subcut QHS ondansetron 8 mg tablet,disintegrating 8 mg PO Q8H PRN (Reason: nausea and vomiting) Qty: 15 0RF albuterol sulfate [Ventolin HFA] 90 mcg/actuation HFA aerosol inhaler 1 - 2 puff inhalation Q4H PRN PRN (Reason: Wheezing) Qty: 1 0RF prednisone 20 mg tablet 40 mg PO DAILY 5 Days Qty: 10 0RF Patient Comments: x5days furosemide 40 mg tablet 40 mg PO DAILY Brilinta 90 mg tablet 90 mg PO BID sacubitril-valsartan [Entresto] 49-51 mg tablet 1 tab PO BID metoprolol succinate 50 mg Tablet Extended Release 24 Hr 100 mg PO BID Qty: 120 0RF Referrals / Follow Up: Norris Mcqueen MD [Primary Care Provider] - Disposition Disposition (needs filled in before D/C Order can be placed): Acute Care Hospital Charges/Coding Visit Charges OBSV E&M: 90050 Observ/hosp same date L2
== END 2024-06-23 22:22 | disposition short-term general hospital (02) | DRG 280 ==
LOC: ED 18:29 → PCU 06-23 02:54 → ICU 06-23 18:13
PROVIDERS: Physician Assistant; Admitting Provider Family Medicine; Emergency Provider Emergency Medicine; PCP Family Medicine; Referring Provider Emergency Medicine; Visit Provider Family Medicine
DX: I21.4 Non-ST elevation (NSTEMI) myocardial infarction (principal); N18.6 End stage renal disease; I13.2 Hypertensive heart and chronic kidney disease with heart failure and with stage 5 chronic kidney disease, or end stage renal disease; J44.1 Chronic obstructive pulmonary disease with (acute) exacerbation; I42.8 Other cardiomyopathies; I50.22 Chronic systolic (congestive) heart failure; D63.8 Anemia in other chronic diseases classified elsewhere; E11.22 Type 2 diabetes mellitus with diabetic chronic kidney disease; F32.A Depression, unspecified; I48.0 Paroxysmal atrial fibrillation; I25.10 Atherosclerotic heart disease of native coronary artery without angina pectoris; E11.51 Type 2 diabetes mellitus with diabetic peripheral angiopathy without gangrene; E78.00 Pure hypercholesterolemia, unspecified; K21.9 Gastro-esophageal reflux disease without esophagitis; Z79.4 Long term (current) use of insulin; Z99.2 Dependence on renal dialysis; E11.42 Type 2 diabetes mellitus with diabetic polyneuropathy; E87.5 Hyperkalemia; G47.33 Obstructive sleep apnea (adult) (pediatric); F41.9 Anxiety disorder, unspecified; I25.2 Old myocardial infarction; J06.9 Acute upper respiratory infection, unspecified; I95.9 Hypotension, unspecified; Z79.82 Long term (current) use of aspirin; Z79.85 Long-term (current) use of injectable non-insulin antidiabetic drugs; Z79.02 Long term (current) use of antithrombotics/antiplatelets; Z95.5 Presence of coronary angioplasty implant and graft; Z11.52 Encounter for screening for COVID-19; Z98.62 Peripheral vascular angioplasty status
CPT/HCPCS: 36415; 71045; 80048; 80053; 82009; 82962; 83735; 84145; 84484; 85025; 85610; 85730; 87070; 87205; 87631; 87633; 90937; 93005; 93306; 94640; 94660; 99285; Q9957; A4216; C8929; G0257; J0612; J2405